=== PATIENT | male | born 1945 | race Caucasian/White ===

== ENCOUNTER 2016-09-27 00:25 | Inpatient (IN) | payer MEDICARE, BC ==
[2016-09-27] MEDS ORDERED: NITROGLYCERIN OINT 1 INCH/GM PACKET TOPICAL STA (00:40)
[2016-09-27] MEDS ORDERED: FUROSEMIDE 10 MG/ML 4 ML VIAL IV STA (00:40)
--- NOTE | 2016-09-27 00:44 | ED ---
General Adult HPI - General Stated complaint: LUBNA Time Seen by Provider: 09/27/16 00:30 Source: RN notes reviewed - History of Present Illness Initial comments: This is a 70-year-old male with a past history significant for atrial fibrillation. Patient states he been having difficulty breathing for the last 2 weeks. The patient states that over the last couple of hours difficulty breathing has gotten severe. According to the in the room she states that his swelling in his legs is also been significantly worse over the last few weeks. Patient denies any chest pain or palpitations. Patient denies any recent fever chills or cough. Patient denies headache patient denies numbness weakness. Patient denies any lightheadedness dizziness or near syncopal episode. Patient denies any recent abdominal pain patient denies nausea vomiting diarrhea. Patient denies any calf tenderness. - Related Data Home Medications Medication Instructions Recorded Confirmed Allopurinol [Zyloprim] 100 mg PO DAILY 12/10/15 09/27/16 Doxazosin [Cardura] 8 mg PO DAILY 12/10/15 09/27/16 Furosemide [Lasix] 40 mg PO DAILY 12/10/15 09/27/16 Metoprolol Succinate [Toprol XL] 50 mg PO BID 12/10/15 09/27/16 Potassium Chloride [Klor-Con 10] 10 meq PO DAILY 12/10/15 09/27/16 Pravastatin Sodium [Pravachol] 20 mg PO HS 12/10/15 09/27/16 Spironolactone [Aldactone] 25 mg PO DAILY 12/10/15 09/27/16 Warfarin [Coumadin] 5 mg PO TUTHSA 12/10/15 09/27/16 Benazepril [Lotensin] 20 mg PO DAILY 01/14/16 09/27/16 Colchicine [Colcrys] 0.6 mg PO BID 09/27/16 09/27/16 Warfarin [Coumadin] 7.5 mg PO SUMOWEFR 09/27/16 09/27/16 Allergies Allergy/AdvReac Type Severity Reaction Status Date / Time No Known Allergies Allergy Verified 09/27/16 00:49 Review of Systems ROS Statement: Those systems with pertinent positive or pertinent negative responses have been documented in the HPI. ROS Other: All systems not noted in ROS Statement are negative. Past Medical History Past Medical History: Atrial Fibrillation, Hyperlipidemia, Hypertension, Sleep Apnea/CPAP/BIPAP History of Any Multi-Drug Resistant Organisms: None Reported Past Surgical History: Cholecystectomy, Joint Replacement Past Anesthesia/Blood Transfusion Reactions: No Reported Reaction Smoking Status: Former smoker Past Alcohol Use History: Occasional Past Drug Use History: None Reported - Past Family History Father Family Medical History: No Reported History General Exam - General Exam Comments Initial Comments: GENERAL: Patient is well-developed and well-nourished. Patient is nontoxic and well- hydrated and is in moderate distress. ENT: Neck is soft and supple. No significant lymphadenopathy is noted. Oropharynx is clear. Moist mucous membranes. Neck has full range of motion without eliciting any pain. EYES: The sclera were anicteric and conjunctiva were pink and moist. Extraocular movements were intact and pupils were equal round and reactive to light. Eyelids were unremarkable. PULMONARY: Patient has crackles bilaterally CARDIOVASCULAR: There is a regular rate and rhythm without any murmurs gallops or rubs. ABDOMEN: Soft and nontender with normal bowel sounds. No palpable organomegaly was noted. There is no palpable pulsatile mass. SKIN: Skin is clear with no lesions or rashes and otherwise unremarkable. NEUROLOGIC: Patient is alert and oriented x3. Cranial nerves II through XII are grossly intact. Motor and sensory are also intact. Normal speech, volume and content. Symmetrical smile. MUSCULOSKELETAL: Normal extremities with adequate strength and full range of motion. 2+ edema bilaterally LYMPHATICS: No significant lymphadenopathy is noted PSYCHIATRIC: Normal psychiatric evaluation. Normal interpersonal interactions appears functionally intact in deals appropriately with others. No signs of depression. No signs of anxiety. Course Vital Signs 09/27/16 09/27/16 09/27/16 00:30 00:52 01:12 Temperature 98.1 F Pulse Rate 125 H 131 H 143 H Respiratory 38 H 22 22 Rate Blood Pressure 145/103 174/103 194/86 O2 Sat by Pulse 52 L 97 Oximetry 09/27/16 09/27/16 01:42 03:14 Temperature Pulse Rate 116 H 123 H Respiratory 22 20 Rate Blood Pressure 153/76 124/56 O2 Sat by Pulse 97 97 Oximetry Medical Decision Making - Medical Decision Making EKG shows atrial fibrillation with rapid ventricular response at 124 bpm QRS 102 QT interval 310 QTC is 445. Patient's EKG shows no ST segment elevation or depression or T-wave abdomen is noted. Chest x-ray showed congestive heart failure for which I started the patient on Nitropaste and Lasix. Also the chest x-ray showed no infiltrates up with the patient on Levaquin. Patient had atrial fibrillation at a rapid rate so I started the patient on some Cardizem. - Lab Data Result diagrams: 09/27/16 00:48 09/27/16 00:48 Lab Results 09/27/16 09/27/16 09/27/16 Range/Units 00:48 00:48 00:48 WBC 11.1 H (3.8-10.6) k/uL RBC 5.05 (4.30-5.90) m/uL Hgb 14.4 (13.0-17.5) gm/dL Hct 45.1 (39.0-53.0) % MCV 89.3 (80.0-100.0) fL MCH 28.4 (25.0-35.0) pg MCHC 31.8 (31.0-37.0) g/dL RDW 13.4 (11.5-15.5) % Plt Count 90 L (150-450) k/uL Neutrophils % 83 % Lymphocytes % 7 % Monocytes % 5 % Eosinophils % 1 % Basophils % 2 % Neutrophils # 9.2 H (1.3-7.7) k/uL Lymphocytes # 0.8 L (1.0-4.8) k/uL Monocytes # 0.6 (0-1.0) k/uL Eosinophils # 0.2 (0-0.7) k/uL Basophils # 0.2 (0-0.2) k/uL Manual Slide Review Performed Hypochromasia Slight PT (9.0-12.0) sec INR (<1.1) APTT (22.0-30.0) sec Sodium 144 (137-145) mmol/L Potassium 4.1 (3.5-5.1) mmol/L Chloride 107 (98-107) mmol/L Carbon Dioxide 24 (22-30) mmol/L Anion Gap 13 mmol/L BUN 18 (9-20) mg/dL Creatinine 1.10 (0.66-1.25) mg/dL Est GFR (MDRD) Af Amer >60 (>60 ml/min/1.73 sqM) Est GFR (MDRD) Non-Af >60 (>60 ml/min/1.73 sqM) Glucose 137 H (74-99) mg/dL Calcium 9.4 (8.4-10.2) mg/dL Magnesium 2.0 (1.6-2.3) mg/dL Total Bilirubin 0.8 (0.2-1.3) mg/dL AST 28 (17-59) U/L ALT 40 (21-72) U/L Alkaline Phosphatase 96 (38-126) U/L Total Creatine Kinase 77 (55-170) U/L CK-MB (CK-2) 1.6 (0.0-2.4) ng/mL CK-MB (CK-2) Rel Index 2.1 Troponin I <0.012 (0.000-0.034) ng/mL NT-Pro-B Natriuret Pep pg/mL Total Protein 7.6 (6.3-8.2) g/dL Albumin 4.6 (3.5-5.0) g/dL 09/27/16 09/27/16 Range/Units 00:48 00:48 WBC (3.8-10.6) k/uL RBC (4.30-5.90) m/uL Hgb (13.0-17.5) gm/dL Hct (39.0-53.0) % MCV (80.0-100.0) fL MCH (25.0-35.0) pg MCHC (31.0-37.0) g/dL RDW (11.5-15.5) % Plt Count (150-450) k/uL Neutrophils % % Lymphocytes % % Monocytes % % Eosinophils % % Basophils % % Neutrophils # (1.3-7.7) k/uL Lymphocytes # (1.0-4.8) k/uL Monocytes # (0-1.0) k/uL Eosinophils # (0-0.7) k/uL Basophils # (0-0.2) k/uL Manual Slide Review Hypochromasia PT 22.6 H (9.0-12.0) sec INR 2.3 (<1.1) APTT 28.7 (22.0-30.0) sec Sodium (137-145) mmol/L Potassium (3.5-5.1) mmol/L Chloride (98-107) mmol/L Carbon Dioxide (22-30) mmol/L Anion Gap mmol/L BUN (9-20) mg/dL Creatinine (0.66-1.25) mg/dL Est GFR (MDRD) Af Amer (>60 ml/min/1.73 sqM) Est GFR (MDRD) Non-Af (>60 ml/min/1.73 sqM) Glucose (74-99) mg/dL Calcium (8.4-10.2) mg/dL Magnesium (1.6-2.3) mg/dL Total Bilirubin (0.2-1.3) mg/dL AST (17-59) U/L ALT (21-72) U/L Alkaline Phosphatase (38-126) U/L Total Creatine Kinase (55-170) U/L CK-MB (CK-2) (0.0-2.4) ng/mL CK-MB (CK-2) Rel Index Troponin I (0.000-0.034) ng/mL NT-Pro-B Natriuret Pep 1640 pg/mL Total Protein (6.3-8.2) g/dL Albumin (3.5-5.0) g/dL Critical Care Time Critical Care Time: Yes Total Critical Care Time: 35 Disposition Clinical Impression: Acute pulmonary edema, Pneumonia, Atrial fibrillation with RVR Disposition: ADMITTED IP TO THIS [facility] Time of Disposition: 02:04
[2016-09-27] MEDS ORDERED: LORazepam 2 MG/ML SYRINGE IV STA ×2 (01:08→01:25)
[2016-09-27 01:09] LABS: Basophils # (A) 0.2 k/uL (0-0.2); Basophils % (A) 2 %; CH 28.1; CHCM 31.6; Eosinophils # (A) 0.2 k/uL (0-0.7); Eosinophils % (A) 1 %; HCT 45.1 % (39.0-53.0); HDW 2.69; HGB 14.4 gm/dL (13.0-17.5); Hypochromasia Slight; Luc # (Auto) 0.18; Luc % (Auto) 2; Lymphocytes # (A) 0.8 k/uL (1.0-4.8); Lymphocytes % (A) 7 %; MCH 28.4 pg (25.0-35.0); MCHC 31.8 g/dL (31.0-37.0); MCV 89.3 fL (80.0-100.0); Mean Platelet Volume 7.3; Monocytes # (A) 0.6 k/uL (0-1.0); Monocytes % (A) 5 %; Neutrophils # (A) 9.2 k/uL (1.3-7.7); Neutrophils % (A) 83 %; RBC 5.05 m/uL (4.30-5.90); RDW 13.4 % (11.5-15.5); WBC 11.1 k/uL (3.8-10.6); WBC (Perox) 11.54
[2016-09-27 01:14] LABS: INR 2.3 (<1.1); Partial Thromboplastin Time 28.7 sec (22.0-30.0); Prothrombin Time 22.6 sec (9.0-12.0)
[2016-09-27 01:18] LABS: ALT 40 U/L (21-72); AST 28 U/L (17-59); Alkaline Phosphatase 96 U/L (38-126); Anion Gap 13 mmol/L; Blood Urea Nitrogen 18 mg/dL (9-20); Calcium 9.4 mg/dL (8.4-10.2); Carbon Dioxide 24 mmol/L (22-30); Chloride 107 mmol/L (98-107); Glucose 137 mg/dL (74-99); Non-African American GFR(MDRD) >60 (>60 ml/min/1.73 sqM); Potassium 4.1 mmol/L (3.5-5.1); Sodium 144 mmol/L (137-145); Total Bilirubin 0.8 mg/dL (0.2-1.3); Total Protein 7.6 g/dL (6.3-8.2)
--- NOTE | 2016-09-27 01:22 | XR ---
EXAM: XR Chest, 1 View. CLINICAL HISTORY: Reason: Pain TECHNIQUE: Frontal view of the chest. COMPARISON: No relevant prior studies available. FINDINGS: Lungs: Heterogeneous patchy infiltrate in the right mid and lower lung field. There is a background of increased pulmonary vascular markings that would suggest a component of pulmonary vascular congestion. Pleural spaces: No large pleural effusion. No pneumothorax. Heart: There is cardiomegaly present. Mediastinum: Mild aortic arch calcification. Bones: Osseous structures intact with degenerative changes. Metallic density overlying the right humeral head is partially included, may be external or post surgical. No acute fracture. IMPRESSION: 1. Right lower lung field infiltrate. Recommend follow-up to resolution. 2. Underlying or superimposed pulmonary vascular congestion.
[2016-09-27] MEDS ORDERED: LABETALOL SYRINGE 5 MG/ML IVP STA (01:25)
[2016-09-27 01:27] LABS: Creatine Kinase 77 U/L (55-170)
[2016-09-27 01:35] LABS: Manual Review Performed
[2016-09-27 01:40] LABS: Creatine Kinase MB 1.6 ng/mL (0.0-2.4); Troponin I <0.012 ng/mL (0.000-0.034)
[2016-09-27] MEDS ORDERED: LEVOFLOXACIN 750MG-D5W PMX 750 MG in DEXTROSE/WATER 1 150ML.BAG IVPB STA (01:53)
[2016-09-27] MEDS ORDERED: DILTIAZEM 125 MG in SODIUM CHLORIDE 0.9% 100 ML IV ONE (02:06)
[2016-09-27] MEDS ORDERED: FUROSEMIDE 10 MG/ML 4 ML VIAL IV SCH (02:15)
[2016-09-27] MEDS ORDERED: METOPROLOL SUCCINATE (ER) 50 MG TAB.ER.24H PO SCH (10:15)
[2016-09-27] MEDS ORDERED: POTASSIUM CHLORIDE ER 10 MEQ TAB.ER.PRT PO SCH (10:15)
[2016-09-27] MEDS: NITROGLYCERIN OINT 1 INCH/GM PACKET TOPICAL SCH ×3 (10:54→17:17)
[2016-09-27] MEDS: SPIRONOLACTONE 25 MG TAB PO SCH (10:56)
[2016-09-27] MEDS: POTASSIUM CHLORIDE ER 20 MEQ TAB.ER PO SCH (10:56)
[2016-09-27] MEDS: FUROSEMIDE 10 MG/ML 4 ML VIAL IV SCH ×3 (10:57→23:56)
--- NOTE | 2016-09-27 11:36 | P.HPIM ---
History of Present Illness H&P Date: 09/27/16 64-year-old male patient of Dr. Grissom with known medical history of hypertension, hyperlipidemia and benign prostatic hypertrophy, chronic back pain , gout, osteoarthritis and borderline diabetes chronic atrial fibrillation. His career development consultant is Dr. Dominguez. Patient states that he has had shortness of breath for a couple weeks worsening with activity. He denies any chest pain with this. Last night he was coughing up mucus and blood which was a little foamy. By the time he coughed up a second episode of bloody He needed to have it checked. Prior to this he states that his sputum was a dark brown. Last night he could not catch his breath and he ended up coming into [facility] emergency center for worsening shortness of breath along with orthopnea. He denies any chest pain, palpitations. He did have some lightheadedness. No nausea or vomiting no leg pain. His initial pulse ox was 52% on room air with tachypnea of 38 and heart rate of 125. He was placed on Nitropaste but is not really sure if this helped at all. Chest x- ray showed a right lower lobe infiltrate and underlying pulmonary vascular congestion. He was started on his IV Lasix versus his usual oral dose along with IV antibiotics with Levaquin and admitted to the selective care unit. Consults were requested with pulmonary medicine and cardiology. Repeat troponins and echocardiogram ordered. Patient does have history of obstructive sleep apnea but was unable to tolerate CPAP. Review of Systems All systems: negative Constitutional: Denies chills, Denies fever Eyes: denies blurred vision, denies pain Ears, nose, mouth and throat: Denies headache, Denies sore throat Cardiovascular: Reports decreased exercise tolerance, Reports dyspnea on exertion, Reports leg edema, Reports lightheadedness, Reports orthopnea, Reports shortness of breath, Denies chest pain, Denies irregular heart beat, Denies palpitations, Denies rapid heart beat, Denies syncope Respiratory: Reports cough, Reports cough with sputum, Reports dyspnea, Reports hemoptysis, Reports sleep apnea Gastrointestinal: Denies abdominal pain, Denies diarrhea, Denies nausea, Denies vomiting Musculoskeletal: Denies myalgias Integumentary: Denies pruritus, Denies rash Neurological: Denies numbness, Denies weakness Psychiatric: Denies anxiety, Denies depression Endocrine: Denies fatigue, Denies weight change Past Medical History Past Medical History: Atrial Fibrillation, Hyperlipidemia, Hypertension, Sleep Apnea/CPAP/BIPAP Additional Past Medical History / Comment(s): Gout, benign prostatic hypertrophy , chronic low back pain, generalized osteoarthritis, obstructive sleep apnea and was unable to tolerate CPAP machine, borderline diabetes History of Any Multi-Drug Resistant Organisms: None Reported Past Surgical History: Cholecystectomy, Joint Replacement Additional Past Surgical History / Comment(s): Right total knee arthroplasty with Dr. Quan, ventral hernia repair Past Anesthesia/Blood Transfusion Reactions: No Reported Reaction Past Psychological History: No Psychological Hx Reported Smoking Status: Former smoker Past Alcohol Use History: Occasional Additional Past Alcohol Use History / Comment(s): She was a smoker of one pack per day for 10 years and quit 40 years ago. He denies any medical marijuana, marijuana or street drug use. He does drink alcohol 3-4 beers every day for 10- 15 years. He is and lives at home with his . Past Drug Use History: None Reported - Past Family History Father Family Medical History: No Reported History Additional Family Medical History / Comment(s): Dad at age 89 from stroke. Mother Additional Family Medical History / Comment(s): Mother is alive at age 90 with dementia. Sister(s) Additional Family Medical History / Comment(s): Patient has 2 sisters with no major medical problems. Patient does not have any brothers. Patient has 2 adult children with no major medical problems. Medications and Allergies Home Medications Medication Instructions Recorded Confirmed Type Allopurinol [Zyloprim] 100 mg PO HS 12/10/15 09/27/16 History Furosemide [Lasix] 40 mg PO DAILY 12/10/15 09/27/16 History Potassium Chloride [Klor-Con 10] 10 meq PO HS 12/10/15 09/27/16 History Pravastatin Sodium [Pravachol] 20 mg PO HS 12/10/15 09/27/16 History Spironolactone [Aldactone] 25 mg PO DAILY 12/10/15 09/27/16 History Warfarin [Coumadin] 5 mg PO MOWEFR 12/10/15 09/27/16 History Benazepril HCl [Lotensin] 20 mg PO DAILY 09/27/16 09/27/16 History Colchicine [Colcrys] 0.6 mg PO BID 09/27/16 09/27/16 History Doxazosin Mesylate [Cardura] 8 mg PO HS 09/27/16 09/27/16 History Metoprolol Tartrate [Lopressor] 50 mg PO BID 09/27/16 09/27/16 History Warfarin [Coumadin] 7.5 mg PO SUTUTHSA 09/27/16 09/27/16 History Allergies Allergy/AdvReac Type Severity Reaction Status Date / Time No Known Allergies Allergy Verified 09/27/16 10:16 Physical Exam Vitals: Vital Signs Temp Pulse Resp BP Pulse Ox 09/27/16 07:24 97.8 F 115 H 17 114/58 96 09/27/16 04:48 115 H 95 09/27/16 03:14 123 H 20 124/56 97 Intake and Output 09/26/16 09/27/16 09/27/16 22:59 06:59 14:59 Output Total 1999 Balance -1999 Output: Urine 1999 General appearance: cooperative, no acute distress, morbidly obese. negative: average body habitus, disheveled, mild distress, - EENT Eyes: Reports normal pupils, Reports normal apperance, Denies anicteric sclerae , Denies disc margins sharp, Denies edentulous, Denies EOMI, Denies PERRLA, Denies fundus normal, Denies dentition normal, Denies poor dentition, Denies ptosis, Denies scleral icterus ENT: Reports normal oropharynx, Denies hard of hearing, Denies hearing grossly normal, Denies NA/AT, Denies other, Denies pharyngeal erythema, Denies thrush, Denies tonsillar exudates, Denies tonsillar swelling Ears: bilateral: normal - Neck Neck: Reports normal ROM, Denies lymphadenopathy, Denies other, Denies rigidity , Denies stridor, Denies thyromegaly Carotids: bilateral: upstroke normal Thyroid: bilateral: normal size - Respiratory Respiratory: bilateral: diminished with crackles - Cardiovascular Rhythm: regular Heart sounds: normal: S1, S2 Abnormal Heart Sounds: Reports systolic murmur - Gastrointestinal General gastrointestinal: Reports normal bowel sounds, Reports soft, Denies decreased bowel sounds, Denies distended, Denies hepatomegaly, Denies hyperactive bowel sounds, Denies organomegaly, Denies rigid, Denies scaphoid, Denies splenomegaly, Denies tenderness, Denies umbilical hernia, Denies ventral hernia - Integumentary Integumentary: Reports normal, Reports pale, Reports rash, Denies calor, Denies cellulitis, Denies cyanotic, Denies decreased turgor, Denies flushed, Denies jaundiced, Denies normal turgor, Denies ulcer - Neurologic Neurologic: CNII-XII intact - Musculoskeletal Musculoskeletal: Reports gait normal, Reports generalized weakness, Reports strength equal bilaterally, Denies right sided weakness, Denies left sided weakness Results CBC & Chem 7: 09/27/16 00:48 09/27/16 00:48 Thrombosis Risk Factor Assmnt - DVT/VTE Prophylaxis DVT/VTE Prophylaxis: Pharmacologic Prophylaxis ordered Assessment and Plan Plan: 1. Acute hypoxic respiratory failure secondary to acute coronary syndrome, acute heart failure, possible right-sided pneumonia requiring BiPAP. Continue O2 to maintain a pulse ox equal to or greater than 92%. Consult with pulmonary medicine and cardiology. Repeat troponins and echocardiogram ordered. 2. Atrial fibrillation with rapid ventricular response with history of chronic atrial fibrillation. Patient was started on Cardizem drip. Metoprolol resumed. Patient is on chronic Coumadin which has been resumed. Continue to monitor INR. Cardiology and pulmonary medicine consult. 3. Hemoptysis with possible right infiltrate or pneumonia. Patient has been started on IV Levaquin. Consult with pulmonary medicine. 4. Hypertension. Continue benazepril 20 mg daily and Lopressor 50 mg twice daily, Aldactone 25 mg daily. 5. Acute on chronic heart failure. Echocardiogram ordered. Continue Lasix 40 mg IV push every 8 hours and Aldactone 25 mg daily. 6. Benign prostatic hypertrophy. Continue Cardura. 7. Hyperlipidemia. Continue Pravachol. 8. Gout unspecified. Continue colchicine and allopurinol. 9. Chronic low back pain and generalized osteoarthritis, stable. 10. Borderline diabetes. Humalog scale and A1c ordered. 11. DVT prophylaxis. Patient is on Coumadin. 12. Gastrointestinal prophylaxis. Protonix Patient will be admitted to the hospital for a minimum of 2 night stay. Discharge plan: To be determined. Impression and plan of care have been directed as dictated by the signing physician. Linda Maloney nurse practitioner acting as scribe for signing physician. Time with Patient: Greater than 30
[2016-09-27 13:44] LABS: Glucose,Whole Blood 99 mg/dL (75-99)
[2016-09-27] MEDS ORDERED: IPRATROPIUM-ALBUTEROL 3 ML NEB INHALATION PRN (14:17)
--- NOTE | 2016-09-27 14:19 | P.CNPUL ---
History of Present Illness Consult date: 09/27/16 Reason for consult: dyspnea, cough Chief complaint: cough and shortness of breath History of present illness: this is a 70-year-old male who presented emergency department complaining of shortness of breath and cough for the last 2-3 weeks. The patient states that over the past 2 weeks his breathing is Much worse. The patient states that he was coughing up brown phlegm for about 2 weeks. Last night he had an episode where he coughed up a drawing of bright red blood. He states he has not had any further bleeding since that one time. He denies fevers and chills at home. He denies chest pain. He states he has a history of obstructive sleep apnea diagnosed about 3 years ago. He wear his CPAP for about 4 months and could not tolerate having the mask on. He states he has not worn his CPAP since that time. He is a former smoker quit 35 years ago. He used to smoke 1 pack per day for 10 years. He states he has never been totally of COPD or asthma. Review of Systems All systems: negative Past Medical History Past Medical History: Atrial Fibrillation, Hyperlipidemia, Hypertension, Sleep Apnea/CPAP/BIPAP Additional Past Medical History / Comment(s): Gout, benign prostatic hypertrophy , chronic low back pain, generalized osteoarthritis, obstructive sleep apnea and was unable to tolerate CPAP machine, borderline diabetes History of Any Multi-Drug Resistant Organisms: None Reported Past Surgical History: Cholecystectomy, Joint Replacement Additional Past Surgical History / Comment(s): Right total knee arthroplasty with Dr. Quan, ventral hernia repair Past Anesthesia/Blood Transfusion Reactions: No Reported Reaction Past Psychological History: No Psychological Hx Reported Smoking Status: Former smoker Past Alcohol Use History: Occasional Additional Past Alcohol Use History / Comment(s): She was a smoker of one pack per day for 10 years and quit 40 years ago. He denies any medical marijuana, marijuana or street drug use. He does drink alcohol 3-4 beers every day for 10- 15 years. He is and lives at home with his . Past Drug Use History: None Reported - Past Family History Father Family Medical History: No Reported History Additional Family Medical History / Comment(s): Dad at age 89 from stroke. Mother Additional Family Medical History / Comment(s): Mother is alive at age 90 with dementia. Sister(s) Additional Family Medical History / Comment(s): Patient has 2 sisters with no major medical problems. Patient does not have any brothers. Patient has 2 adult children with no major medical problems. Medications and Allergies Home Medications Medication Instructions Recorded Confirmed Type Allopurinol [Zyloprim] 100 mg PO HS 12/10/15 09/27/16 History Furosemide [Lasix] 40 mg PO DAILY 12/10/15 09/27/16 History Potassium Chloride [Klor-Con 10] 10 meq PO HS 12/10/15 09/27/16 History Pravastatin Sodium [Pravachol] 20 mg PO HS 12/10/15 09/27/16 History Spironolactone [Aldactone] 25 mg PO DAILY 12/10/15 09/27/16 History Warfarin [Coumadin] 5 mg PO MOWEFR 12/10/15 09/27/16 History Benazepril HCl [Lotensin] 20 mg PO DAILY 09/27/16 09/27/16 History Colchicine [Colcrys] 0.6 mg PO BID 09/27/16 09/27/16 History Doxazosin Mesylate [Cardura] 8 mg PO HS 09/27/16 09/27/16 History Metoprolol Tartrate [Lopressor] 50 mg PO BID 09/27/16 09/27/16 History Warfarin [Coumadin] 7.5 mg PO SUTUTHSA 09/27/16 09/27/16 History Allergies Allergy/AdvReac Type Severity Reaction Status Date / Time No Known Allergies Allergy Verified 09/27/16 10:16 Physical Exam Osteopathic Statement: *. No significant issues noted on an osteopathic structural exam other than those noted in the History and Physical/Consult. Vitals: Vital Signs Temp Pulse Resp BP Pulse Ox 09/27/16 13:05 100 20 119/59 94 L 09/27/16 12:24 108 H 18 94 L 09/27/16 10:19 97.8 F 110 H 18 102/63 95 09/27/16 07:24 97.8 F 115 H 17 114/58 96 09/27/16 04:48 115 H 95 09/27/16 03:14 123 H 20 124/56 97 Intake and Output 09/26/16 09/27/16 09/27/16 22:59 06:59 14:59 Output Total 19990 Balance -1999 Output: Urine 2000 1150 Gen.: Patient is alert and oriented 3, no acute distress, morbidly obese Cardiovascular: Irregular rate and rhythm, S1/S2, tachycardic Lungs: Coarse breath sounds bilaterally sign abdomen: Soft nontender nondistended positive bowel sounds Extremities: 2+ pitting edema with chronic venous stasis Results - Laboratory Findings CBC and BMP: 09/27/16 00:48 09/27/16 00:48 PT/INR, D-dimer PT 22.6 sec (9.0-12.0) H 09/27/16 00:48 INR 2.3 (<1.1) 09/27/16 00:48 - Diagnostic Findings Chest x-ray: report reviewed, image reviewed Assessment and Plan Plan: acute hypoxic respiratory failure Acute exacerbation of congestive heart failure, unknown type pulmonary edema Hemoptysis without recurrence Possible pneumonia versus bronchitis Morbid obesity Obstructive sleep apnea, patient noncompliant with CPAP Possible early cor pulmonale Atrial fibrillation with rapid ventricular response Thrombocytopenia Coumadin coagulopathy Hypertension Dyslipidemia BPH Chronic back pain Gout Osteoarthritis Diabetes mellitus type 2 O2 to maintain saturation greater than equal to 88% Bronchodilators PRN Diuresis Monitor for recurrent hemoptysis Antibiotics: Levaquin Check echocardiogram Coumadin dosing for INR 2-3 Continue patient's home medications Rate control per cardiology No need to stop anticoagulation from pulmonary standpoint at this point. Patient has not had any recurrent hemoptysis. Sputum culture Repeat CXR in AM Patient is encouraged to wear his home CPAP however he refuses at this time. GI and DVT prophylaxis Incentive spirometry and pulmonary hygiene Thank you for this consultation we'll continue to follow along
[2016-09-27] MEDS: INSULIN LISPRO (humaLOG) 300 UNIT/3 ML VIAL SQ SCH ×4 (14:38→22:02)
--- NOTE | 2016-09-27 15:30 | P.CRDCN ---
History of Present Illness Consult date: 09/27/16 Reason for Consult (text): pulmonary edema Chief complaint: shortness of breath ,hemoptysis History of present illness: This is a 70-year-old gentleman who follows with Dr. Dominguez in the office has a past medical history of atrial fibrillation, hypertension, hyperlipidemia. Presented to the emergency department with complaints of difficulty in breathing as well as a cough over the last 2-3 weeks. Patient says he's been coughing up brown colored sputum for the last 2 weeks and yesterday had one episode of hemoptysis, bright red blood. He's also noticed he's had some increase in his lower extremity edema. Upon presentation patient was found to be in atrial fibrillation with RVR surgeon on Cardizem drip. He is on current Coumadin at home with an INR of 2.3. Labs showed a BNP of 1640 and troponin of less than 0.012 and 0.020. Chest x-ray showed right lower lobe infiltrate and pulmonary vascular congestion. Patient has been started on IV antibiotics as well as IV Lasix. Upon examination patient is feeling quite a bit better. Denies any further episodes of hemoptysis. He is breathing easier. Notices a decrease in his edema. Eyes any complaints of palpitations, chest discomfort, dizziness or syncope. Past Medical History Past Medical History: Atrial Fibrillation, Hyperlipidemia, Hypertension, Sleep Apnea/CPAP/BIPAP Additional Past Medical History / Comment(s): Gout, benign prostatic hypertrophy , chronic low back pain, generalized osteoarthritis, obstructive sleep apnea and was unable to tolerate CPAP machine, borderline diabetes History of Any Multi-Drug Resistant Organisms: None Reported Past Surgical History: Cholecystectomy, Joint Replacement Additional Past Surgical History / Comment(s): Right total knee arthroplasty with Dr. Quan, ventral hernia repair Past Anesthesia/Blood Transfusion Reactions: No Reported Reaction Past Psychological History: No Psychological Hx Reported Smoking Status: Former smoker Past Alcohol Use History: Occasional Additional Past Alcohol Use History / Comment(s): She was a smoker of one pack per day for 10 years and quit 40 years ago. He denies any medical marijuana, marijuana or street drug use. He does drink alcohol 3-4 beers every day for 10- 15 years. He is and lives at home with his . Past Drug Use History: None Reported - Past Family History Father Family Medical History: No Reported History Additional Family Medical History / Comment(s): Dad at age 89 from stroke. Mother Additional Family Medical History / Comment(s): Mother is alive at age 90 with dementia. Sister(s) Additional Family Medical History / Comment(s): Patient has 2 sisters with no major medical problems. Patient does not have any brothers. Patient has 2 adult children with no major medical problems. Medications and Allergies Home Medications Medication Instructions Recorded Confirmed Type Allopurinol [Zyloprim] 100 mg PO HS 12/10/15 09/27/16 History Furosemide [Lasix] 40 mg PO DAILY 12/10/15 09/27/16 History Potassium Chloride [Klor-Con 10] 10 meq PO HS 12/10/15 09/27/16 History Pravastatin Sodium [Pravachol] 20 mg PO HS 12/10/15 09/27/16 History Spironolactone [Aldactone] 25 mg PO DAILY 12/10/15 09/27/16 History Warfarin [Coumadin] 5 mg PO MOWEFR 12/10/15 09/27/16 History Benazepril HCl [Lotensin] 20 mg PO DAILY 09/27/16 09/27/16 History Colchicine [Colcrys] 0.6 mg PO BID 09/27/16 09/27/16 History Doxazosin Mesylate [Cardura] 8 mg PO HS 09/27/16 09/27/16 History Metoprolol Tartrate [Lopressor] 50 mg PO BID 09/27/16 09/27/16 History Warfarin [Coumadin] 7.5 mg PO SUTUTHSA 09/27/16 09/27/16 History Allergies Allergy/AdvReac Type Severity Reaction Status Date / Time No Known Allergies Allergy Verified 09/27/16 10:16 Physical Exam Vitals: Vital Signs Temp Pulse Pulse Resp BP BP Pulse Ox 09/27/16 14:00 97.8 F 115 H 20 126/62 94 L 09/27/16 13:05 100 20 119/59 94 L 09/27/16 12:24 108 H 18 94 L 09/27/16 10:19 97.8 F 110 H 18 102/63 95 09/27/16 07:24 97.8 F 115 H 17 114/58 96 09/27/16 04:48 115 H 95 09/27/16 04:23 97.8 F 115 H 20 126/62 94 L 09/27/16 03:14 123 H 20 124/56 97 Intake and Output 09/27/16 09/27/16 09/27/16 06:59 14:59 22:59 Output Total 19990 Balance -1999 Output: Urine 19990 Other: Voiding Method Urinal # Bowel Movements 1 Weight 175 kg PHYSICAL EXAMINATION: HEENT: Head is atraumatic, normocephalic. Pupils equal, round. Neck is supple. There is no elevated jugular venous pressure. HEART EXAMINATION: Heart sounds irregular irregular, S1 and S2 normal. No murmur or gallop heard. CHEST EXAMINATION: Lungs reveal faint crackles to bilateral bases. No chest wall tenderness is noted on palpation or with deep breathing. ABDOMEN: Soft, nontender. Bowel sounds are heard. No organomegaly noted. EXTREMITIES: 2+ peripheral pulses with evidence of 2+ peripheral edema and no calf tenderness noted. NEUROLOGIC patient is awake, alert and oriented x3. . Results 09/27/16 00:48 09/27/16 00:48 Cardiac Enzymes 09/27/16 Range/Units 10:40 Troponin I 0.020 (0.000-0.034) ng/mL Current Medications Generic Name Dose Route Start Last Admin Trade Name Freq PRN Reason Stop Dose Admin Albuterol/Ipratropium 3 ml 09/27/16 14:17 Duoneb 0.5 Mg-3 Mg/3 Ml Soln INHALATION RT-QID PRN Shortness Of Breath Or Wheezing Allopurinol 100 mg 09/28/16 09:00 Zyloprim PO DAILY [facility] Colchicine 0.6 mg 09/27/16 21:00 Colcrys PO BID [facility] Doxazosin Mesylate 8 mg 09/28/16 09:00 Cardura PO DAILY [facility] Furosemide 40 mg 09/27/16 08:00 09/27/16 10:57 Lasix IV 40 mg Q8H [facility] Administration Levofloxacin 750 mg/ IV 150 mls @ 100 mls/hr 09/28/16 06:00 Solution IVPB Q24H [facility] Insulin Human Lispro 0 unit 09/27/16 12:30 09/27/16 14:38 Humalog SQ Not Given ACHS [facility] Protocol Lisinopril 20 mg 09/28/16 09:00 Zestril PO DAILY [facility] Metoprolol Tartrate 50 mg 09/27/16 21:00 Lopressor PO BID [facility] Nitroglycerin 1 inch 09/27/16 09:00 09/27/16 14:38 Nitro-Bid Oint TOPICAL Not Given QID [facility] Potassium Chloride 20 meq 09/27/16 09:00 09/27/16 10:56 K-Dur 20 PO 20 meq DAILY [facility] Administration Pravastatin Sodium 20 mg 09/27/16 21:00 Pravachol PO HS [facility] Spironolactone 25 mg 09/27/16 10:15 09/27/16 10:56 Aldactone PO 25 mg DAILY [facility] Administration Warfarin Sodium 5 mg 09/27/16 18:00 Coumadin PO [id number]@1800 [facility] Warfarin Sodium 7.5 mg 09/28/16 18:00 Coumadin PO [id number]@1800 [facility] Intake and Output 09/27/16 09/27/16 09/27/16 06:59 14:59 22:59 Output Total 1999 1150 Balance -1999 Output: Urine 1999 1149 Other: Voiding Method Urinal # Bowel Movements 1 Weight 175 kg Assessment and Plan Plan: Assessment and Plan #1 acute congestive heart failure, awaiting echo results. #2 acute hypoxic respiratory failure secondary to pulmonary edema and possible pneumonia versus bronchitis #3 morbid obesity #4 hemoptysis without recurrence #5 atrial fibrillation with rapid ventricular response, chronic, on Coumadin #6 hypertension #7 obstructive sleep apnea, noncompliant with CPAP From cardiology's perspective, we'll obtain a 2-D echo. We will stop IV Cardizem and resume patient's home dose of metoprolol tartrate 50 mg by mouth twice a day. Continue IV Lasix. We'll follow patient's renal function, daily weights and intake and output. Further recommendations to follow. AGRONOMY PROFESSOR note has been reviewed, I agree with a documented findings and plan of care. Patient was seen and examined.
[2016-09-27 16:55] LABS: Glucose,Whole Blood 118 mg/dL (75-99)
[2016-09-27] MEDS ORDERED: WARFARIN 5 MG TAB PO SCH (18:00)
[2016-09-27 20:40] LABS: Glucose,Whole Blood 148 mg/dL (75-99)
[2016-09-27] MEDS: COLCHICINE 0.6 MG TAB PO SCH (21:50)
[2016-09-27] MEDS: PRAVASTATIN SODIUM 20 MG TAB PO SCH (21:51)
[2016-09-27] MEDS: METOPROLOL TARTRATE 50 MG TAB PO SCH (21:51)
[2016-09-28 05:47] LABS: Glucose,Whole Blood 112 mg/dL (75-99)
[2016-09-28] MEDS: LEVOFLOXACIN 750MG-D5W PMX 750 MG in DEXTROSE/WATER 1 150ML.BAG IVPB SCH (06:13)
[2016-09-28] MEDS: NITROGLYCERIN OINT 1 INCH/GM PACKET TOPICAL SCH ×3 (06:13→16:02)
--- NOTE | 2016-09-28 07:46 | XR ---
EXAMINATION TYPE: XR chest 1V portable DATE OF EXAM: 09/28/2016 7:13 AM COMPARISON: 09/27/2016 HISTORY: Shortness of breath TECHNIQUE: Single frontal view of the chest is obtained. FINDINGS: The heart remains enlarged and there is marked improvement perihilar lower lobe areas of i nfiltrate. No pneumothorax. Underlying COPD suspected. Atherosclerotic change aorta. IMPRESSION: 1. Improving perihilar areas of infiltrate or pulmonary edema correlate clinically.
[2016-09-28] MEDS: INSULIN LISPRO (humaLOG) 300 UNIT/3 ML VIAL SQ SCH ×3 (07:57→17:04)
[2016-09-28] MEDS: LISINOPRIL 20 MG TAB PO SCH (08:06)
[2016-09-28] MEDS: FUROSEMIDE 10 MG/ML 4 ML VIAL IV SCH ×2 (08:06→16:55)
[2016-09-28] MEDS: POTASSIUM CHLORIDE ER 20 MEQ TAB.ER PO SCH (08:06)
[2016-09-28] MEDS: ALLOPURINOL 100 MG TAB PO SCH (08:06)
[2016-09-28] MEDS: SPIRONOLACTONE 25 MG TAB PO SCH (08:07)
[2016-09-28] MEDS: COLCHICINE 0.6 MG TAB PO SCH ×2 (08:07→22:04)
[2016-09-28] MEDS: DOXAZOSIN 4 MG TAB PO SCH (08:07)
[2016-09-28] MEDS: METOPROLOL TARTRATE 50 MG TAB PO SCH ×2 (08:08→22:04)
[2016-09-28 09:29] LABS: INR 1.9 (<1.1); Prothrombin Time 18.3 sec (9.0-12.0)
--- NOTE | 2016-09-28 10:23 | P.PN ---
Subjective 64-year-old male patient of Dr. Grissom with known medical history of hypertension, hyperlipidemia and benign prostatic hypertrophy, chronic back pain , gout, osteoarthritis and borderline diabetes chronic atrial fibrillation. His director surface transportation is Dr. Dominguez. Patient states that he has had shortness of breath for a couple weeks worsening with activity. He denies any chest pain with this. Last night he was coughing up mucus and blood which was a little foamy. By the time he coughed up a second episode of bloody He needed to have it checked. Prior to this he states that his sputum was a dark brown. Last night he could not catch his breath and he ended up coming into [facility] emergency center for worsening shortness of breath along with orthopnea. He denies any chest pain, palpitations. He did have some lightheadedness. No nausea or vomiting no leg pain. His initial pulse ox was 52% on room air with tachypnea of 38 and heart rate of 125. He was placed on Nitropaste but is not really sure if this helped at all. Chest x- ray showed a right lower lobe infiltrate and underlying pulmonary vascular congestion. He was started on his IV Lasix versus his usual oral dose along with IV antibiotics with Levaquin and admitted to the selective care unit. Consults were requested with pulmonary medicine and cardiology. Repeat troponins and echocardiogram ordered. Patient does have history of obstructive sleep apnea but was unable to tolerate CPAP. 09/28: Patient has been seen by pulmonary medicine and cardiology. Cardizem drip was discontinued. Patient continues on IV Lasix. Weight is down 4 kg. blood cultures showing no growth and sputum culture is in process. Echocardiogram has been completed and report is pending. Dr. Grissom discussed with cardiology that he would like heart catheterization performed. Objective - Vital Signs Vital signs: Vital Signs Temp 97.0 F L 09/28/16 08:00 Pulse 101 H 09/28/16 08:00 Resp 18 09/28/16 08:00 BP 115/70 09/28/16 08:00 Pulse Ox 93 L 09/28/16 08:00 Intake & Output 09/27/16 09/28/16 09/28/16 17:59 06:59 18:59 Intake Total Output Total Balance Weight Intake: IV Diltiazem 125 mg In Sodium Chloride 0.9% 100 ml @ 5 MG/HR 5 mls/hr IV .Q24H ONE Rx#:[id number] saline Output: Urine Other: Voiding Method # Bowel Movements - Exam General appearance: cooperative, no acute distress, morbidly obese. negative: average body habitus, disheveled, mild distress, - EENT Eyes: Reports normal pupils, Reports normal apperance, Denies anicteric sclerae , Denies disc margins sharp, Denies edentulous, Denies EOMI, Denies PERRLA, Denies fundus normal, Denies dentition normal, Denies poor dentition, Denies ptosis, Denies scleral icterus ENT: Reports normal oropharynx, Denies hard of hearing, Denies hearing grossly normal, Denies NA/AT, Denies other, Denies pharyngeal erythema, Denies thrush, Denies tonsillar exudates, Denies tonsillar swelling Ears: bilateral: normal - Neck Neck: Reports normal ROM, Denies lymphadenopathy, Denies other, Denies rigidity , Denies stridor, Denies thyromegaly Carotids: bilateral: upstroke normal Thyroid: bilateral: normal size - Respiratory Respiratory: bilateral: diminished with crackles - Cardiovascular Rhythm: regular Heart sounds: normal: S1, S2 Abnormal Heart Sounds: Reports systolic murmur - Gastrointestinal General gastrointestinal: Reports normal bowel sounds, Reports soft, Denies decreased bowel sounds, Denies distended, Denies hepatomegaly, Denies hyperactive bowel sounds, Denies organomegaly, Denies rigid, Denies scaphoid, Denies splenomegaly, Denies tenderness, Denies umbilical hernia, Denies ventral hernia - Integumentary Integumentary: Reports normal, Reports pale, Reports rash, Denies calor, Denies cellulitis, Denies cyanotic, Denies decreased turgor, Denies flushed, Denies jaundiced, Denies normal turgor, Denies ulcer - Neurologic Neurologic: CNII-XII intact - Musculoskeletal Musculoskeletal: Reports gait normal, Reports generalized weakness, Reports strength equal bilaterally, Denies right sided weakness, Denies left sided weakness - Labs CBC & Chem 7: 09/27/16 00:48 09/27/16 00:48 Labs: Abnormal Lab Results - Last 24 Hours (Table) 09/27/16 09/27/16 09/28/16 Range/Units 16:45 20:38 05:46 POC Glucose (mg/dL) 118 H 148 H 112 H (75-99) mg/dL Microbiology - Last 24 Hours (Table) 09/27/16 18:45 Gram Stain - Preliminary Sputum Assessment and Plan Plan: 1. Acute hypoxic respiratory failure secondary to acute coronary syndrome, acute heart failure, possible right-sided pneumonia requiring BiPAP. Continue O2 to maintain a pulse ox equal to or greater than 92%. Consult with pulmonary medicine and cardiology. Repeat troponins and echocardiogram ordered. 2. Atrial fibrillation with rapid ventricular response with history of chronic atrial fibrillation. Patient was started on Cardizem drip and subsequently discontinued. Metoprolol resumed. Patient is on chronic Coumadin which has been resumed. Continue to monitor INR. Cardiology and pulmonary medicine consult. 3. Hemoptysis with possible right infiltrate or pneumonia. Patient has been started on IV Levaquin. Consult with pulmonary medicine. 4. Hypertension. Continue benazepril 20 mg daily and Lopressor 50 mg twice daily, Aldactone 25 mg daily. 5. Acute on chronic heart failure. Echocardiogram ordered. Continue Lasix 40 mg IV push every 8 hours and Aldactone 25 mg daily. 6. Benign prostatic hypertrophy. Continue Cardura. 7. Hyperlipidemia. Continue Pravachol. 8. Gout unspecified. Continue colchicine and allopurinol. 9. Chronic low back pain and generalized osteoarthritis, stable. 10. Borderline diabetes. Humalog scale and A1c ordered. 11. DVT prophylaxis. Patient is on Coumadin. 12. Gastrointestinal prophylaxis. Protonix Patient will be admitted to the hospital for a minimum of 2 night stay. Discharge plan: To be determined. Impression and plan of care have been directed as dictated by the signing physician. Linda Maloney nurse practitioner acting as scribe for signing physician. Time with Patient: Greater than 30
[2016-09-28 10:41] LABS: Hemoglobin A1C 5.7 % (4.2-6.1)
[2016-09-28 11:53] LABS: Glucose,Whole Blood 101 mg/dL (75-99)
--- NOTE | 2016-09-28 14:24 | P.PN ---
Subjective Principal diagnosis: acute exacerbation of CHF patient seen and examined. Patient states his breathing is much better today. He has not had any more hemoptysis. He states he is feeling better overall. He has been urinating quite frequently. Objective - Vital Signs Vital signs: Vital Signs Temp 96.9 F L 09/28/16 11:37 Pulse 90 09/28/16 11:37 Resp 20 09/28/16 11:37 BP 108/69 09/28/16 11:37 Pulse Ox 95 09/28/16 11:37 Intake & Output 09/27/16 09/28/16 09/28/16 17:59 06:59 18:59 Intake Total 120 Output Total 400 Balance -280 Weight 171 kg Intake: IV Diltiazem 125 mg In Sodium Chloride 0.9% 100 ml @ 5 MG/HR 5 mls/hr IV .Q24H [facility] Rx#:[id number] saline Oral 120 Output: Urine 400 Other: Voiding Method Urinal # Voids 1 # Bowel Movements - Exam Gen.: Patient is alert and oriented 3, no acute distress, morbidly obese Cardiovascular: Irregular rate and rhythm, S1/S2, tachycardic Lungs: Coarse breath sounds bilaterally, improving abdomen: Soft nontender nondistended positive bowel sounds Extremities: 2+ pitting edema with chronic venous stasis - Labs CBC & Chem 7: 09/27/16 00:48 09/27/16 00:48 Labs: Abnormal Lab Results - Last 24 Hours (Table) 09/27/16 09/27/16 09/28/16 Range/Units 16:45 20:38 05:46 PT (9.0-12.0) sec POC Glucose (mg/dL) 118 H 148 H 112 H (75-99) mg/dL 09/28/16 09/28/16 Range/Units 09:03 11:49 PT 18.3 H (9.0-12.0) sec POC Glucose (mg/dL) 101 H (75-99) mg/dL Microbiology - Last 24 Hours (Table) 09/27/16 18:45 Gram Stain - Preliminary Sputum Assessment and Plan Plan: acute hypoxic respiratory failure Acute exacerbation of congestive heart failure, unknown type pulmonary edema Hemoptysis without recurrence tracheobronchitis - doubt pneumonia as chest x-ray has improved markedly with diuresis Morbid obesity Obstructive sleep apnea, patient noncompliant with CPAP Possible early cor pulmonale Atrial fibrillation with rapid ventricular response Thrombocytopenia Coumadin coagulopathy Hypertension Dyslipidemia BPH Chronic back pain Gout Osteoarthritis Diabetes mellitus type 2 O2 to maintain saturation greater than equal to 88% Bronchodilators PRN Diuresis Monitor for recurrent hemoptysis Antibiotics: Levaquin pending echocardiogram Patient on Revatio per cardiology Coumadin dosing for INR 2-3 Continue patient's home medications Rate control per cardiology No need to stop anticoagulation from pulmonary standpoint at this point. Patient has not had any recurrent hemoptysis. Sputum culture repeat chest x-ray shows marked improvement in bilateral pulmonary vascular congestion. Doubt pneumonia given hasty improvement with diuresis. Patient is encouraged to wear his home CPAP however he refuses at this time. GI and DVT prophylaxis Incentive spirometry and pulmonary hygiene Check AM labs
[2016-09-28] MEDS: SILDENAFIL 20 MG TAB PO SCH ×2 (16:55→22:05)
[2016-09-28 17:07] LABS: Glucose,Whole Blood 93 mg/dL (75-99)
[2016-09-28] MEDS ORDERED: WARFARIN 7.5 MG TAB PO ONE (18:00)
[2016-09-28] MEDS ORDERED: WARFARIN 7.5 MG TAB PO SCH (18:00)
[2016-09-28 21:23] LABS: Glucose,Whole Blood 98 mg/dL (75-99)
[2016-09-28] MEDS: PRAVASTATIN SODIUM 20 MG TAB PO SCH (22:05)
[2016-09-29] MEDS: FUROSEMIDE 10 MG/ML 4 ML VIAL IV SCH ×4 (00:15→21:26)
[2016-09-29] MEDS: LEVOFLOXACIN 750MG-D5W PMX 750 MG in DEXTROSE/WATER 1 150ML.BAG IVPB SCH (06:15)
[2016-09-29] MEDS: INSULIN LISPRO (humaLOG) 300 UNIT/3 ML VIAL SQ SCH ×5 (06:19→21:21)
[2016-09-29 06:26] LABS: Glucose,Whole Blood 163 mg/dL (75-99)
[2016-09-29 06:36] LABS: Anion Gap 12 mmol/L; Blood Urea Nitrogen 23 mg/dL (9-20); Calcium 9.4 mg/dL (8.4-10.2); Carbon Dioxide 32 mmol/L (22-30); Chloride 99 mmol/L (98-107); Glucose 119 mg/dL (74-99); Non-African American GFR(MDRD) 53 (>60 ml/min/1.73 sqM); Sodium 143 mmol/L (137-145)
[2016-09-29 06:37] LABS: Basophils # (A) 0.1 k/uL (0-0.2); Basophils % (A) 1 %; CH 28.3; CHCM 32.1; Eosinophils # (A) 0.2 k/uL (0-0.7); Eosinophils % (A) 2 %; HCT 41.2 % (39.0-53.0); HDW 2.63; HGB 13.1 gm/dL (13.0-17.5); Luc % (Auto) 3; Lymphocytes # (A) 1.2 k/uL (1.0-4.8); Lymphocytes % (A) 10 %; MCH 28.2 pg (25.0-35.0); MCHC 31.8 g/dL (31.0-37.0); MCV 88.5 fL (80.0-100.0); Mean Platelet Volume 7.3; Monocytes # (A) 0.9 k/uL (0-1.0); Monocytes % (A) 8 %; Neutrophils # (A) 8.9 k/uL (1.3-7.7); Neutrophils % (A) 78 %; RBC 4.65 m/uL (4.30-5.90); RDW 13.5 % (11.5-15.5); WBC 11.5 k/uL (3.8-10.6); WBC (Perox) 11.54
[2016-09-29 06:38] LABS: INR 1.6 (<1.1); Prothrombin Time 15.1 sec (9.0-12.0)
[2016-09-29] MEDS: COLCHICINE 0.6 MG TAB PO SCH ×2 (09:17→21:26)
[2016-09-29] MEDS: ALLOPURINOL 100 MG TAB PO SCH (09:17)
[2016-09-29] MEDS: DOXAZOSIN 4 MG TAB PO SCH (09:18)
[2016-09-29] MEDS: LISINOPRIL 20 MG TAB PO SCH (09:19)
[2016-09-29] MEDS: POTASSIUM CHLORIDE ER 20 MEQ TAB.ER PO SCH (09:20)
[2016-09-29] MEDS: METOPROLOL TARTRATE 50 MG TAB PO SCH ×2 (09:20→21:25)
[2016-09-29] MEDS: SILDENAFIL 20 MG TAB PO SCH ×3 (09:20→21:25)
[2016-09-29] MEDS: SPIRONOLACTONE 25 MG TAB PO SCH (09:21)
--- NOTE | 2016-09-29 09:43 | PN ---
This patient is admitted with symptoms of shortness of breath. Patient is being treated for acute exacerbation of chronic obstructive pulmonary disease and acute on chronic diastolic heart failure. Patient also was found to be in atrial fibrillation with RVR and a rapid ventricular response. Patient is doing better. His breathing has improved. Patient denies any chest pain. Patient's heart rate now remains in the range of 80 to 90 per minute. The blood pressure is 130/80 mmHg. HEART: S1 and S2 normal. Lungs reveal bilateral scattered rhonchi. Chest x-ray shows changes of congestive cardiac failure. FINAL IMPRESSION: This patient is currently being treated for acute on chronic diastolic heart failure and possible pneumonia and bronchitis. Patient's hemoptysis is subsided. Patient's echocardiogram reveals overall normal left ventricular systolic function with a significant pulmonary hypertension in the range of 70 to 82 systolic. I would recommend to continue the current medical treatment. I will add Sudanophil, Revatio 20 mg t.i.d. which might help his pulmonary hypertension. We would recommend patient to be evaluated later on with a dura stress test or cardiac catheterization after patient has improved from his current heart failure and acute bronchitis.
--- NOTE | 2016-09-29 11:58 | ECHOF ---
Referral Reason:lvfunction MEASUREMENTS -------- HEIGHT: 152.4 cm WEIGHT: 172.4 kg BP: RVIDd: 4.8 cm (< 3.3) IVSd: 1.5 cm (0.6 - 1.1) LVIDd: 4.3 cm (3.9 - 5.3) LVPWd: 1.6 cm (0.6 - 1.1) IVSs: 1.6 cm LVIDs: 3.1 cm LVPWs: 1.6 cm LA Diam: 5.4 cm (2.7 - 3.8) LAESV Index (A-L): 50.75 ml/m Ao Diam: 4.3 cm (2.0 - 3.7) AV Cusp: 2.5 cm (1.5 - 2.6) LA Diam: 5.7 cm (2.7 - 3.8) MV EXCURSION: 21.258 mm (> 18.000) MV EF SLOPE: 104 mm/s (70 - 150) EPSS: 0.3 cm MV E Denys: 0.62 m/s MV DecT: 163 ms MV A Denys: 0.45 m/s MV E/A Ratio: 1.36 RAP: 20.00 mmHg RVSP: 79.95 mmHg FINDINGS -------- Undetermined rhythm. This was a technically adequate study. Morbid Obesity There is mild concentric left ventricular hypertrophy. Overall left ventricular systolic function is low-normal with, an EF between 50 - 55 %. The right ventricle is severely enlarged. The right ventricular septal wall is flattened in diastole and systole which is consistent with right ventricular volume and pressure overload. LA is severely dilated >40 ml/m2 The right atrium is moderately enlarged. There is mild aortic valve sclerosis. There is no evidence of aortic regurgitation. Mild mitral annular calcification present. Mild mitral regurgitation is present. Moderate tricuspid regurgitation present. There is severe pulmonary hypertension. The right ventricular systolic pressure, as measured by Doppler, is 79.95mmHg. The pulmonic valve was not well visualized. The aortic root size is normal. The inferior vena cava is dilated with no significant inspiratory collapse which is consistent estimated right atrial pressure of >20 mmHg. There is no pericardial effusion. CONCLUSIONS -------- 1. Morbid Obesity 2. Mild mitral regurgitation is present. 3. Moderate tricuspid regurgitation present. 4. There is severe pulmonary hypertension. 5. The right ventricular systolic pressure, as measured by Doppler, is 79.95mmHg. 6. The pulmonic valve was not well visualized. 7. The aortic root size is normal. 8. The inferior vena cava is dilated with no significant inspiratory collapse which is consistent estimated right atrial pressure of >20 mmHg. 9. There is no pericardial effusion. 10. There is mild concentric left ventricular hypertrophy. 11. Overall left ventricular systolic function is low-normal with, an EF between 50 - 55 %. 12. The right ventricle is severely enlarged. 13. The right ventricular septal wall is flattened in diastole and systole which is consistent with right ventricular volume and pressure overload. 14. LA is severely dilated >40 ml/m2 15. The right atrium is moderately enlarged. 16. There is mild aortic valve sclerosis. 17. Mild mitral annular calcification present. TIRE WORKER: Cheryl Mathew RDCS
[2016-09-29 11:59] LABS: Glucose,Whole Blood 137 mg/dL (75-99)
--- NOTE | 2016-09-29 12:37 | P.PN ---
Subjective 64-year-old male patient of Dr. Grissom with known medical history of hypertension, hyperlipidemia and benign prostatic hypertrophy, chronic back pain , gout, osteoarthritis and borderline diabetes chronic atrial fibrillation. His remnants cutter is Dr. Dominguez. Patient states that he has had shortness of breath for a couple weeks worsening with activity. He denies any chest pain with this. Last night he was coughing up mucus and blood which was a little foamy. By the time he coughed up a second episode of bloody He needed to have it checked. Prior to this he states that his sputum was a dark brown. Last night he could not catch his breath and he ended up coming into [facility] emergency center for worsening shortness of breath along with orthopnea. He denies any chest pain, palpitations. He did have some lightheadedness. No nausea or vomiting no leg pain. His initial pulse ox was 52% on room air with tachypnea of 38 and heart rate of 125. He was placed on Nitropaste but is not really sure if this helped at all. Chest x- ray showed a right lower lobe infiltrate and underlying pulmonary vascular congestion. He was started on his IV Lasix versus his usual oral dose along with IV antibiotics with Levaquin and admitted to the selective care unit. Consults were requested with pulmonary medicine and cardiology. Repeat troponins and echocardiogram ordered. Patient does have history of obstructive sleep apnea but was unable to tolerate CPAP. 09/28: Patient has been seen by pulmonary medicine and cardiology. Cardizem drip was discontinued. Patient continues on IV Lasix. Weight is down 4 kg. blood cultures showing no growth and sputum culture is in process. Echocardiogram has been completed and report is pending. Dr. Grissom discussed with cardiology that he would like heart catheterization performed. Coumadin placed on hold. 09/29: Repeat BUN 23 and creatinine 1.34. INR 1.6. Patient is continued on IV Lasix 40 mg IV every 8 hours which will be decreased to every 12 hours. Weight is down almost 9 kg. cardiology plans outpatient testing with Dr. Dominguez.Coumadin 7.5 mg ordered for tonight. Objective - Vital Signs Vital signs: Vital Signs Temp 96.8 F L 09/29/16 04:00 Pulse 96 09/29/16 04:00 Resp 20 09/29/16 04:00 BP 103/75 09/29/16 04:00 Pulse Ox 94 L 09/29/16 08:27 Intake & Output 09/28/16 09/29/16 09/29/16 18:59 06:59 18:59 Intake Total 240 180 Output Total 1950 675 Balance -1710 -675 180 Weight 171 kg 166.4 kg Intake: Oral 240 180 Output: Urine 1949 675 Other: Voiding Method Urinal Urinal # Voids 1 1 - Exam General appearance: cooperative, no acute distress, morbidly obese. negative: average body habitus, disheveled, mild distress, - EENT Eyes: Reports normal pupils, Reports normal apperance, Denies anicteric sclerae , Denies disc margins sharp, Denies edentulous, Denies EOMI, Denies PERRLA, Denies fundus normal, Denies dentition normal, Denies poor dentition, Denies ptosis, Denies scleral icterus ENT: Reports normal oropharynx, Denies hard of hearing, Denies hearing grossly normal, Denies NA/AT, Denies other, Denies pharyngeal erythema, Denies thrush, Denies tonsillar exudates, Denies tonsillar swelling Ears: bilateral: normal - Neck Neck: Reports normal ROM, Denies lymphadenopathy, Denies other, Denies rigidity , Denies stridor, Denies thyromegaly Carotids: bilateral: upstroke normal Thyroid: bilateral: normal size - Respiratory Respiratory: bilateral: diminished with crackles - Cardiovascular Rhythm: regular Heart sounds: normal: S1, S2 Abnormal Heart Sounds: Reports systolic murmur - Gastrointestinal General gastrointestinal: Reports normal bowel sounds, Reports soft, Denies decreased bowel sounds, Denies distended, Denies hepatomegaly, Denies hyperactive bowel sounds, Denies organomegaly, Denies rigid, Denies scaphoid, Denies splenomegaly, Denies tenderness, Denies umbilical hernia, Denies ventral hernia - Integumentary Integumentary: Reports normal, Reports pale, Reports rash, Denies calor, Denies cellulitis, Denies cyanotic, Denies decreased turgor, Denies flushed, Denies jaundiced, Denies normal turgor, Denies ulcer - Neurologic Neurologic: CNII-XII intact - Musculoskeletal Musculoskeletal: Reports gait normal, Reports generalized weakness, Reports strength equal bilaterally, Denies right sided weakness, Denies left sided weakness - Labs CBC & Chem 7: 09/29/16 05:50 09/29/16 05:50 Labs: Abnormal Lab Results - Last 24 Hours (Table) 09/28/16 09/28/16 09/29/16 Range/Units 09:03 11:49 05:50 WBC 11.5 H (3.8-10.6) k/uL Plt Count 115 L (150-450) k/uL Neutrophils # 8.9 H (1.3-7.7) k/uL PT 18.3 H (9.0-12.0) sec Carbon Dioxide (22-30) mmol/L BUN (9-20) mg/dL Creatinine (0.66-1.25) mg/dL Glucose (74-99) mg/dL POC Glucose (mg/dL) 101 H (75-99) mg/dL 09/29/16 09/29/16 09/29/16 Range/Units 05:50 05:50 06:24 WBC (3.8-10.6) k/uL Plt Count (150-450) k/uL Neutrophils # (1.3-7.7) k/uL PT 15.1 H (9.0-12.0) sec Carbon Dioxide 32 H (22-30) mmol/L BUN 23 H (9-20) mg/dL Creatinine 1.34 H (0.66-1.25) mg/dL Glucose 119 H (74-99) mg/dL POC Glucose (mg/dL) 163 H (75-99) mg/dL Microbiology - Last 24 Hours (Table) 09/27/16 18:45 Gram Stain - Preliminary Sputum Assessment and Plan Plan: 1. Acute hypoxic respiratory failure secondary to acute coronary syndrome, acute heart failure, possible right-sided pneumonia requiring BiPAP. Continue O2 to maintain a pulse ox equal to or greater than 92%. Consult with pulmonary medicine and cardiology. 2. Atrial fibrillation with rapid ventricular response with history of chronic atrial fibrillation. Patient was started on Cardizem drip and subsequently discontinued. Metoprolol resumed. Patient is on chronic Coumadin which has been resumed. Continue to monitor INR. Cardiology and pulmonary medicine consult. 3. Hemoptysis with possible right infiltrate or pneumonia. Patient has been started on po Levaquin. Consult with pulmonary medicine. 4. Hypertension. Continue benazepril 20 mg daily and Lopressor 50 mg twice daily, Aldactone 25 mg daily. 5. Acute on chronic heart failure. Echocardiogram ordered. Continue Lasix 40 mg IV push every 12 hours and Aldactone 25 mg daily. 6. Benign prostatic hypertrophy. Continue Cardura. 7. Hyperlipidemia. Continue Pravachol. 8. Gout unspecified. Continue colchicine and allopurinol. 9. Chronic low back pain and generalized osteoarthritis, stable. 10. Borderline diabetes. Humalog scale and A1c ordered. 11. DVT prophylaxis. Patient is on Coumadin. 12. Gastrointestinal prophylaxis. Protonix Patient will be admitted to the hospital for a minimum of 2 night stay. Discharge plan: return home. Impression and plan of care have been directed as dictated by the signing physician. Linda Maloney nurse practitioner acting as scribe for signing physician. Time with Patient: Greater than 30
--- NOTE | 2016-09-29 13:05 | P.PN ---
Subjective Principal diagnosis: AECHF Patient seen and examined with the and son at bedside. Patient states his breathing is much better. He is hopeful to go home soon. Lung discussion was had regarding the patient's severe pulmonary hypertension and uncontrolled sleep apnea. The patient was diagnosed with sleep apnea about 6 years ago and he used CPAP for 4 months. He states he was unable to tolerate the CPAP at night so he stopped using it. [place] [facility] [place] The sequelae of uncontrolled sleep apnea as discussed with the patient at length. He is agreeable to try the CPAP again and try to tolerate it. Objective - Vital Signs Vital signs: Vital Signs Temp 96.8 F L 09/29/16 04:00 Pulse 96 09/29/16 04:00 Resp 20 09/29/16 04:00 BP 103/75 09/29/16 04:00 Pulse Ox 94 L 09/29/16 08:27 Intake & Output 09/28/16 09/29/16 09/29/16 18:59 06:59 18:59 Intake Total 240 180 Output Total 1950 675 Balance -1710 -675 180 Weight 171 kg 166.4 kg Intake: Oral 240 180 Output: Urine 1950 675 Other: Voiding Method Urinal Urinal # Voids 1 1 - Exam Gen.: Patient is alert and oriented 3, no acute distress, morbidly obese Cardiovascular: Irregular rate and rhythm, S1/S2, tachycardic Lungs: Coarse breath sounds bilaterally, improving abdomen: Soft nontender nondistended positive bowel sounds Extremities: 2+ pitting edema with chronic venous stasis - Labs CBC & Chem 7: 09/29/16 05:50 09/29/16 05:50 Labs: Abnormal Lab Results - Last 24 Hours (Table) 09/29/16 09/29/16 09/29/16 Range/Units 05:50 05:50 05:50 WBC 11.5 H (3.8-10.6) k/uL Plt Count 115 L (150-450) k/uL Neutrophils # 8.9 H (1.3-7.7) k/uL PT 15.1 H (9.0-12.0) sec Carbon Dioxide 32 H (22-30) mmol/L BUN 23 H (9-20) mg/dL Creatinine 1.34 H (0.66-1.25) mg/dL Glucose 119 H (74-99) mg/dL POC Glucose (mg/dL) (75-99) mg/dL 09/29/16 09/29/16 Range/Units 06:24 11:53 WBC (3.8-10.6) k/uL Plt Count (150-450) k/uL Neutrophils # (1.3-7.7) k/uL PT (9.0-12.0) sec Carbon Dioxide (22-30) mmol/L BUN (9-20) mg/dL Creatinine (0.66-1.25) mg/dL Glucose (74-99) mg/dL POC Glucose (mg/dL) 163 H 137 H (75-99) mg/dL Microbiology - Last 24 Hours (Table) 09/27/16 18:45 Gram Stain - Final Sputum Sputum Culture - Final Assessment and Plan Plan: Acute hypoxic respiratory failure Acute exacerbation of congestive heart failure, diastolic pulmonary edema Severe pulmonary hpyertension with RVSP 80 mmHg Hemoptysis without recurrence tracheobronchitis - doubt pneumonia as chest x-ray has improved markedly with diuresis Morbid obesity Obstructive sleep apnea, patient noncompliant with CPAP Atrial fibrillation with rapid ventricular response Thrombocytopenia Coumadin coagulopathy Hypertension Dyslipidemia BPH Chronic back pain Gout Osteoarthritis Diabetes mellitus type 2 O2 to maintain saturation greater than equal to 88% Bronchodilators PRN Diuresis Antibiotics: Levaquin Patient on Revatio per cardiology Coumadin dosing for INR 2-3 Continue patient's home medications Rate control per cardiology No need to stop anticoagulation from pulmonary standpoint at this point. Patient has not had any recurrent hemoptysis. Sputum culture repeat chest x-ray shows marked improvement in bilateral pulmonary vascular congestion. Doubt pneumonia given hasty improvement with diuresis. Patient is encouraged to wear his home CPAP however he refuses at this time. GI and DVT prophylaxis Incentive spirometry and pulmonary hygiene Check AM labs Start PH work up with labs, will try to get patient's CPAP reordered, will need outpatient PFT, weight loss is discussed. Patient agreeable to try CPAP again. Will need to follow up in pulmonary office with Dr. Ahumada for PH. Patient will need RHC, can be done on outpatient basis
[2016-09-29 14:58] LABS: ALT 36 U/L (21-72); AST 34 U/L (17-59); Alkaline Phosphatase 72 U/L (38-126); Bilirubin, Delta 0.6 mg/dL (0.0-0.2); Total Bilirubin 1.9 mg/dL (0.2-1.3); Total Protein 6.8 g/dL (6.3-8.2)
[2016-09-29 15:01] LABS: Rheumatoid Factor, Qnt 9 IU/mL (<12)
[2016-09-29 15:28] LABS: Hepatitis B Surface Ag Index 0.07
[2016-09-29 15:34] LABS: Hepatitis B Core IgM Index 0.04
[2016-09-29 15:45] LABS: Hepatitis C Virus IgG Index 0.02
[2016-09-29 15:49] LABS: Hepatitis C Virus IgG Ab Negative (Negative)
--- NOTE | 2016-09-29 16:04 | NM ---
EXAMINATION TYPE: NM pul vent and perfuse DATE OF EXAM: 09/29/2016 3:57 PM COMPARISON: NONE HISTORY: Shortness of breath TECHNIQUE: Utilizing inhalation of 71.2 mCi Tc 99m DTPA aerosol and intravenous injection of 5.2 mCi of Tc 99m MAA, ventilation and perfusion images are acquired post injection in multiple projections. FINDINGS: Normal radiotracer distribution is noted in the lungs. There is no evidence of mismatched defects. IMPRESSION: Very low probability for pulmonary embolism.
[2016-09-29 17:10] LABS: Glucose,Whole Blood 97 mg/dL (75-99)
[2016-09-29] MEDS ORDERED: WARFARIN 7.5 MG TAB PO ONE (18:00)
[2016-09-29 21:15] LABS: Glucose,Whole Blood 97 mg/dL (75-99)
[2016-09-29] MEDS: PRAVASTATIN SODIUM 20 MG TAB PO SCH (21:25)
--- NOTE | 2016-09-29 22:19 | PN ---
This patient is feeling better. The breathing is improved. Patient is afebrile. Patient was started on Revatio yesterday because of significant pulmonary hypertension. Patient's echocardiogram is suggestive of diastolic dysfunction as well as significant enlargement of the right ventricular chamber size. Patient is going to have a VQ lung scan done. Patient's chest x-ray done yesterday shows improvement in the heart failure. We will continue the current medications. Patient's heart rate is under control.
[2016-09-30 05:38] LABS: Cyclic Citrullinated Pep IgG 3 UNITS (<20)
[2016-09-30 06:23] LABS: CH 28.3; CHCM 32.4; HCT 42.5 % (39.0-53.0); HDW 2.69; HGB 13.9 gm/dL (13.0-17.5); MCH 28.7 pg (25.0-35.0); MCHC 32.6 g/dL (31.0-37.0); Mean Platelet Volume 7.4; RBC 4.83 m/uL (4.30-5.90); RDW 13.4 % (11.5-15.5); WBC 9.8 k/uL (3.8-10.6)
[2016-09-30 06:27] LABS: INR 1.5 (<1.1); Prothrombin Time 14.7 sec (9.0-12.0)
[2016-09-30 06:28] LABS: Glucose,Whole Blood 123 mg/dL (75-99)
[2016-09-30 06:42] LABS: Anion Gap 15 mmol/L; Blood Urea Nitrogen 30 mg/dL (9-20); Calcium 9.3 mg/dL (8.4-10.2); Carbon Dioxide 27 mmol/L (22-30); Chloride 100 mmol/L (98-107); Glucose 120 mg/dL (74-99); Non-African American GFR(MDRD) 55 (>60 ml/min/1.73 sqM); Sodium 142 mmol/L (137-145)
[2016-09-30] MEDS: INSULIN LISPRO (humaLOG) 300 UNIT/3 ML VIAL SQ SCH ×4 (06:44→20:45)
[2016-09-30] MEDS: LEVOFLOXACIN 750 MG TAB PO SCH (06:46)
[2016-09-30 07:18] LABS: HIV-1/HIV-2 Ab Screen NONREAC (NON REAC)
[2016-09-30] MEDS: ALLOPURINOL 100 MG TAB PO SCH (08:47)
[2016-09-30] MEDS: SILDENAFIL 20 MG TAB PO SCH ×3 (08:47→20:45)
[2016-09-30] MEDS: FUROSEMIDE 10 MG/ML 4 ML VIAL IV SCH (08:48)
[2016-09-30] MEDS: POTASSIUM CHLORIDE ER 20 MEQ TAB.ER PO SCH (08:48)
[2016-09-30] MEDS: METOPROLOL TARTRATE 50 MG TAB PO SCH ×2 (08:49→20:45)
[2016-09-30] MEDS: COLCHICINE 0.6 MG TAB PO SCH ×2 (08:49→20:45)
[2016-09-30] MEDS: SPIRONOLACTONE 25 MG TAB PO SCH (08:50)
[2016-09-30] MEDS: DOXAZOSIN 4 MG TAB PO SCH (08:50)
[2016-09-30 10:34] VITALS: BMI 50.6
[2016-09-30 11:10] LABS: Scleroderma 70 Antibody 2 UNITS (<20)
[2016-09-30 11:55] LABS: Glucose,Whole Blood 97 mg/dL (75-99)
[2016-09-30 12:31] LABS: C-ANCA <1:20 Titer (<1:20); P-ANCA <1:20 Titer (<1:20)
--- NOTE | 2016-09-30 14:17 | P.PN ---
Subjective Principal diagnosis: Acute exacerbation of CHF Patient seen and examined with his at bedside. The patient states his breathing is markedly better. He is hopeful for discharge soon. He states he will follow up for CPAP and will use the CPAP. Objective - Vital Signs Vital signs: Vital Signs Temp 97.5 F L 09/30/16 12:00 Pulse 106 H 09/30/16 12:00 Resp 18 09/30/16 12:00 BP 90/56 09/30/16 12:00 Pulse Ox 95 09/30/16 12:00 Intake & Output 09/29/16 09/30/16 09/30/16 18:59 06:59 18:59 Intake Total 600 600 120 Output Total 1250 1450 375 Balance -650 -850 -255 Weight 164.8 kg 164.8 kg Intake: Oral 600 600 120 Output: Urine 1250 1450 375 Other: Voiding Method Urinal Urinal # Voids 1 1 - Exam Gen.: Patient is alert and oriented 3, no acute distress, morbidly obese Cardiovascular: Irregular rate and rhythm, S1/S2, tachycardic Lungs: Clear to auscultation bilaterally, no wheezes rales or rhonchi abdomen: Soft nontender nondistended positive bowel sounds Extremities: 2+ pitting edema with chronic venous stasis - Labs CBC & Chem 7: 09/30/16 05:29 09/30/16 05:29 Labs: Abnormal Lab Results - Last 24 Hours (Table) 09/29/16 09/30/16 09/30/16 Range/Units 05:50 05:29 05:29 Plt Count 127 L (150-450) k/uL PT (9.0-12.0) sec BUN 30 H (9-20) mg/dL Creatinine 1.30 H (0.66-1.25) mg/dL Glucose 120 H (74-99) mg/dL POC Glucose (mg/dL) (75-99) mg/dL Total Bilirubin 1.9 H (0.2-1.3) mg/dL Unconjugated Bilirubin 1.3 H (0.0-1.1) mg/dL Delta Bilirubin 0.6 H (0.0-0.2) mg/dL 09/30/16 09/30/16 Range/Units 05:29 06:21 Plt Count (150-450) k/uL PT 14.7 H (9.0-12.0) sec BUN (9-20) mg/dL Creatinine (0.66-1.25) mg/dL Glucose (74-99) mg/dL POC Glucose (mg/dL) 123 H (75-99) mg/dL Total Bilirubin (0.2-1.3) mg/dL Unconjugated Bilirubin (0.0-1.1) mg/dL Delta Bilirubin (0.0-0.2) mg/dL Microbiology - Last 24 Hours (Table) 09/27/16 18:45 Gram Stain - Final Sputum Sputum Culture - Final Assessment and Plan Plan: Acute hypoxic respiratory failure Acute exacerbation of congestive heart failure, diastolic pulmonary edema Severe pulmonary hpyertension with RVSP 80 mmHg Hemoptysis without recurrence tracheobronchitis - doubt pneumonia as chest x-ray has improved markedly with diuresis Morbid obesity Obstructive sleep apnea, patient noncompliant with CPAP, mild AHI 12.6 Atrial fibrillation with rapid ventricular response Thrombocytopenia Coumadin coagulopathy Hypertension Dyslipidemia BPH Chronic back pain Gout Osteoarthritis Diabetes mellitus type 2 O2 to maintain saturation greater than equal to 88% Bronchodilators PRN Diuresis Antibiotics: Levaquin Patient on Revatio per cardiology Coumadin dosing for INR 2-3 Continue patient's home medications Rate control per cardiology No need to stop anticoagulation from pulmonary standpoint at this point. Patient has not had any recurrent hemoptysis. Sputum culture repeat chest x-ray shows marked improvement in bilateral pulmonary vascular congestion. Doubt pneumonia given hasty improvement with diuresis. GI and DVT prophylaxis Incentive spirometry and pulmonary hygiene Start PH work up with labs, will try to get patient's CPAP reordered, will need outpatient PFT, weight loss is discussed. Patient agreeable to try CPAP again. Will need to follow up in pulmonary office with Dr. Ahumada for PH. Patient will need RHC, can be done on outpatient basis.
--- NOTE | 2016-09-30 14:24 | P.PN ---
Subjective 64-year-old male patient of Dr. Grissom with known medical history of hypertension, hyperlipidemia and benign prostatic hypertrophy, chronic back pain , gout, osteoarthritis and borderline diabetes chronic atrial fibrillation. His produce sorter is Dr. Dominguez. Patient states that he has had shortness of breath for a couple weeks worsening with activity. He denies any chest pain with this. Last night he was coughing up mucus and blood which was a little foamy. By the time he coughed up a second episode of bloody He needed to have it checked. Prior to this he states that his sputum was a dark brown. Last night he could not catch his breath and he ended up coming into [facility] emergency center for worsening shortness of breath along with orthopnea. He denies any chest pain, palpitations. He did have some lightheadedness. No nausea or vomiting no leg pain. His initial pulse ox was 52% on room air with tachypnea of 38 and heart rate of 125. He was placed on Nitropaste but is not really sure if this helped at all. Chest x- ray showed a right lower lobe infiltrate and underlying pulmonary vascular congestion. He was started on his IV Lasix versus his usual oral dose along with IV antibiotics with Levaquin and admitted to the selective care unit. Consults were requested with pulmonary medicine and cardiology. Repeat troponins and echocardiogram ordered. Patient does have history of obstructive sleep apnea but was unable to tolerate CPAP. 09/28: Patient has been seen by pulmonary medicine and cardiology. Cardizem drip was discontinued. Patient continues on IV Lasix. Weight is down 4 kg. blood cultures showing no growth and sputum culture is in process. Echocardiogram has been completed and report is pending. Dr. Grissom discussed with cardiology that he would like heart catheterization performed. Coumadin placed on hold. 09/29: Repeat BUN 23 and creatinine 1.34. INR 1.6. Patient is continued on IV Lasix 40 mg IV every 8 hours which will be decreased to every 12 hours. Weight is down almost 9 kg. cardiology plans outpatient testing with Dr. Dominguez.Coumadin 7.5 mg ordered for tonight. 09/30: Patient underwent VQ scan which was negative. He was started on Revatio yesterday by cardiology. Lasix will be changed to oral 40 mg twice daily. Monitor patient overnight and plan for discharge tomorrow. Objective - Vital Signs Vital signs: Vital Signs Temp 97.6 F 09/30/16 04:00 Pulse 108 H 09/30/16 04:00 Resp 16 09/30/16 04:00 BP 124/84 09/30/16 04:00 Pulse Ox 94 L 09/30/16 04:00 Intake & Output 09/29/16 09/30/16 09/30/16 18:59 06:59 18:59 Intake Total 600 600 120 Output Total 1250 1450 375 Balance -650 -850 -255 Weight 164.8 kg 164.8 kg Intake: Oral 600 600 120 Output: Urine 1250 1450 375 Other: Voiding Method Urinal Urinal # Voids 1 1 - Exam General appearance: cooperative, no acute distress, morbidly obese. negative: average body habitus, disheveled, mild distress, - EENT Eyes: Reports normal pupils, Reports normal apperance, Denies anicteric sclerae , Denies disc margins sharp, Denies edentulous, Denies EOMI, Denies PERRLA, Denies fundus normal, Denies dentition normal, Denies poor dentition, Denies ptosis, Denies scleral icterus ENT: Reports normal oropharynx, Denies hard of hearing, Denies hearing grossly normal, Denies NA/AT, Denies other, Denies pharyngeal erythema, Denies thrush, Denies tonsillar exudates, Denies tonsillar swelling Ears: bilateral: normal - Neck Neck: Reports normal ROM, Denies lymphadenopathy, Denies other, Denies rigidity , Denies stridor, Denies thyromegaly Carotids: bilateral: upstroke normal Thyroid: bilateral: normal size - Respiratory Respiratory: bilateral: diminished with crackles - Cardiovascular Rhythm: regular Heart sounds: normal: S1, S2 Abnormal Heart Sounds: Reports systolic murmur - Gastrointestinal General gastrointestinal: Reports normal bowel sounds, Reports soft, Denies decreased bowel sounds, Denies distended, Denies hepatomegaly, Denies hyperactive bowel sounds, Denies organomegaly, Denies rigid, Denies scaphoid, Denies splenomegaly, Denies tenderness, Denies umbilical hernia, Denies ventral hernia - Integumentary Integumentary: Reports normal, Reports pale, Reports rash, Denies calor, Denies cellulitis, Denies cyanotic, Denies decreased turgor, Denies flushed, Denies jaundiced, Denies normal turgor, Denies ulcer - Neurologic Neurologic: CNII-XII intact - Musculoskeletal Musculoskeletal: Reports gait normal, Reports generalized weakness, Reports strength equal bilaterally, Denies right sided weakness, Denies left sided weakness - Labs CBC & Chem 7: 09/30/16 05:29 09/30/16 05:29 Labs: Abnormal Lab Results - Last 24 Hours (Table) 09/29/16 09/29/16 09/30/16 Range/Units 05:50 11:53 05:29 Plt Count 127 L (150-450) k/uL PT (9.0-12.0) sec BUN (9-20) mg/dL Creatinine (0.66-1.25) mg/dL Glucose (74-99) mg/dL POC Glucose (mg/dL) 137 H (75-99) mg/dL Total Bilirubin 1.9 H (0.2-1.3) mg/dL Unconjugated Bilirubin 1.3 H (0.0-1.1) mg/dL Delta Bilirubin 0.6 H (0.0-0.2) mg/dL 09/30/16 09/30/16 09/30/16 Range/Units 05:29 05:29 06:21 Plt Count (150-450) k/uL PT 14.7 H (9.0-12.0) sec BUN 30 H (9-20) mg/dL Creatinine 1.30 H (0.66-1.25) mg/dL Glucose 120 H (74-99) mg/dL POC Glucose (mg/dL) 123 H (75-99) mg/dL Total Bilirubin (0.2-1.3) mg/dL Unconjugated Bilirubin (0.0-1.1) mg/dL Delta Bilirubin (0.0-0.2) mg/dL Microbiology - Last 24 Hours (Table) 09/27/16 18:45 Gram Stain - Final Sputum Sputum Culture - Final Assessment and Plan Plan: 1. Acute hypoxic respiratory failure secondary to acute coronary syndrome, acute heart failure, possible right-sided pneumonia requiring BiPAP. Continue O2 to maintain a pulse ox equal to or greater than 92%. Consult with pulmonary medicine and cardiology. 2. Atrial fibrillation with rapid ventricular response with history of chronic atrial fibrillation. Patient was started on Cardizem drip and subsequently discontinued. Metoprolol resumed. Patient is on chronic Coumadin which has been resumed. Continue to monitor INR. Cardiology and pulmonary medicine consult. 3. Hemoptysis with possible right infiltrate or pneumonia. Patient has been started on po Levaquin. Consult with pulmonary medicine. 4. Hypertension. Continue benazepril 20 mg daily and Lopressor 50 mg twice daily, Aldactone 25 mg daily. 5. Acute on chronic heart failure. Echocardiogram as above. Continue Lasix 40 mg PO every 12 hours and Aldactone 25 mg daily. 6. Benign prostatic hypertrophy. Continue Cardura. 7. Hyperlipidemia. Continue Pravachol. 8. Gout unspecified. Continue colchicine and allopurinol. 9. Chronic low back pain and generalized osteoarthritis, stable. 10. Borderline diabetes. Humalog scale and A1c ordered. 11. DVT prophylaxis. Patient is on Coumadin. 12. Gastrointestinal prophylaxis. Protonix Patient will be admitted to the hospital for a minimum of 2 night stay. Discharge plan: return home tomorrow. Impression and plan of care have been directed as dictated by the signing physician. Linda Maloney nurse practitioner acting as scribe for signing physician. Time with Patient: Greater than 30
[2016-09-30] MEDS: LISINOPRIL 20 MG TAB PO SCH (16:01)
[2016-09-30 16:49] LABS: Glucose,Whole Blood 90 mg/dL (75-99)
[2016-09-30] MEDS: FUROSEMIDE 40 MG TAB PO SCH (16:53)
[2016-09-30] MEDS ORDERED: WARFARIN 7.5 MG TAB PO ONE (18:00)
--- NOTE | 2016-09-30 20:43 | PN ---
This patient was admitted with shortness of breath. Patient had evidence of acute on chronic diastolic heart failure as well as right-sided heart failure and atrial fibrillation with a rapid ventricular response. Patient is feeling much better. Heart rate now is 90 to 100 per minute. Blood pressure is 90/56 mmHg. First and second heart sounds are normal. Lungs are fairly clear to auscultation and percussion. He is feeling better. Lung scan did not show any evidence of pulmonary embolism. Electrolytes are normal. Patient's creatinine is 1.30. We will continue to ambulate the patient, continue the current medications. Patient also will be followed by ( ) for evaluation of his pulmonary hypertension. I will decrease the dose of the lisinopril to 10 mg daily because the patient's blood pressure is running slightly on the lower side.
[2016-09-30] MEDS: PRAVASTATIN SODIUM 20 MG TAB PO SCH (20:45)
[2016-09-30 20:46] LABS: Glucose,Whole Blood 117 mg/dL (75-99)
[2016-10-01 05:57] LABS: Glucose,Whole Blood 110 mg/dL (75-99)
[2016-10-01] MEDS: INSULIN LISPRO (humaLOG) 300 UNIT/3 ML VIAL SQ SCH ×2 (06:21→11:54)
[2016-10-01 06:25] LABS: INR 1.8 (<1.1); Prothrombin Time 17.1 sec (9.0-12.0)
[2016-10-01 06:28] LABS: Anion Gap 12 mmol/L; Blood Urea Nitrogen 28 mg/dL (9-20); Calcium 9.4 mg/dL (8.4-10.2); Carbon Dioxide 30 mmol/L (22-30); Chloride 102 mmol/L (98-107); Glucose 122 mg/dL (74-99); Non-African American GFR(MDRD) 55 (>60 ml/min/1.73 sqM); Potassium 4.1 mmol/L (3.5-5.1); Sodium 144 mmol/L (137-145)
[2016-10-01] MEDS: LEVOFLOXACIN 750 MG TAB PO SCH (06:38)
[2016-10-01] MEDS ORDERED: LISINOPRIL 10 MG TAB PO SCH (09:00)
[2016-10-01] MEDS ORDERED: FUROSEMIDE 10 MG TAB PO SCH (09:00)
[2016-10-01] MEDS: SILDENAFIL 20 MG TAB PO SCH (09:32)
[2016-10-01] MEDS: METOPROLOL TARTRATE 50 MG TAB PO SCH (09:33)
[2016-10-01] MEDS: DOXAZOSIN 4 MG TAB PO SCH (09:42)
[2016-10-01] MEDS: ALLOPURINOL 100 MG TAB PO SCH (09:42)
[2016-10-01] MEDS: COLCHICINE 0.6 MG TAB PO SCH (09:42)
[2016-10-01] MEDS: POTASSIUM CHLORIDE ER 20 MEQ TAB.ER PO SCH (09:43)
[2016-10-01] MEDS: FUROSEMIDE 40 MG TAB PO SCH (09:43)
[2016-10-01] MEDS: SPIRONOLACTONE 25 MG TAB PO SCH (09:44)
[2016-10-01] MEDS ORDERED: METOPROLOL TARTRATE 50 MG TAB PO SCH ×2 (10:30→21:00)
[2016-10-01] MEDS ORDERED: METOPROLOL TARTRATE 25 MG TAB PO ONE (10:45)
[2016-10-01 11:53] LABS: Glucose,Whole Blood 103 mg/dL (75-99)
--- NOTE | 2016-10-01 15:51 | P.DS ---
Providers Date of admission: 09/27/16 02:04 Expected date of discharge: 10/01/16 Attending physician: Gianluca Grissom Consults: 09/27/16 11:20 Consult Physician Routine Consulting Provider: Joyce Wilson Consult Reason/Comments: Hemoptysis, heart failure Do you want consulting provider notified?: Yes Primary care physician: [facility] Course: 64-year-old male patient of Dr. Grissom with known medical history of hypertension, hyperlipidemia and benign prostatic hypertrophy, chronic back pain , gout, osteoarthritis and borderline diabetes chronic atrial fibrillation. His meat trimmer is Dr. Dominguez. Patient states that he has had shortness of breath for a couple weeks worsening with activity. He denies any chest pain with this. Last night he was coughing up mucus and blood which was a little foamy. By the time he coughed up a second episode of bloody He needed to have it checked. Prior to this he states that his sputum was a dark brown. Last night he could not catch his breath and he ended up coming into [facility] emergency center for worsening shortness of breath along with orthopnea. He denies any chest pain, palpitations. He did have some lightheadedness. No nausea or vomiting no leg pain. His initial pulse ox was 52% on room air with tachypnea of 38 and heart rate of 125. He was placed on Nitropaste but is not really sure if this helped at all. Chest x- ray showed a right lower lobe infiltrate and underlying pulmonary vascular congestion. He was started on his IV Lasix versus his usual oral dose along with IV antibiotics with Levaquin and admitted to the selective care unit. Consults were requested with pulmonary medicine and cardiology. Repeat troponins and echocardiogram ordered. Patient does have history of obstructive sleep apnea but was unable to tolerate CPAP. 09/28: Patient has been seen by pulmonary medicine and cardiology. Cardizem drip was discontinued. Patient continues on IV Lasix. Weight is down 4 kg. blood cultures showing no growth and sputum culture is in process. Echocardiogram has been completed and report is pending. Dr. Grissom discussed with cardiology that he would like heart catheterization performed. Coumadin placed on hold. 09/29: Repeat BUN 23 and creatinine 1.34. INR 1.6. Patient is continued on IV Lasix 40 mg IV every 8 hours which will be decreased to every 12 hours. Weight is down almost 9 kg. cardiology plans outpatient testing with Dr. Dominguez.Coumadin 7.5 mg ordered for tonight. 09/30: Patient underwent VQ scan which was negative. He was started on Revatio yesterday by cardiology. Lasix will be changed to oral 40 mg twice daily. Monitor patient overnight and plan for discharge tomorrow. 10/01:patient's heart rate went up to 160 and he was started on increased dose of Lopressor at 75 milligrams twice daily. Patient walked again in the hallway and his heart rate did go up to 120 but no higher. Patient was asymptomatic. Patient will be discharged home today in stable condition. Echocardiogram reveals mild mitral regurgitation, moderate tricuspid regurgitation, severe pulmonary hypertension, EF 50-55% with mild concentric left ventricle hypertrophy, L a severely dilated, mild aortic valve sclerosis. Hemoglobin A1c 5.7. Discharge Diagnoses: 1. Acute hypoxic respiratory failure secondary to acute coronary syndrome, acute diastolic heart failure, possible right-sided pneumonia requiring BiPAP. 2. Atrial fibrillation with rapid ventricular response with history of chronic atrial fibrillation. 3. Hemoptysis with possible right infiltrate or pneumonia. 4. Hypertension. 5. Acute on chronic diastolic heart failure. 6. Benign prostatic hypertrophy. 7. Hyperlipidemia. 8. Gout unspecified. 9. Chronic low back pain and generalized osteoarthritis, stable. 10. Hyperglycemia. Discharge plan: return home Impression and plan of care have been directed as dictated by the signing physician. Linda Maloney nurse practitioner acting as scribe for signing physician. Patient Condition at Discharge: Good Plan - Discharge Summary New Discharge Prescriptions: Furosemide [Lasix] 40 mg PO BID@0900,1600 #60 tab Levofloxacin [Levaquin] 750 mg PO Q24H #5 tab Metoprolol Tartrate [Lopressor] 75 mg PO BID #90 tab Sildenafil [Revatio] 20 mg PO TID #90 tab Discharge Medication List Allopurinol [Zyloprim] 100 mg PO HS 12/10/15 [History] Potassium Chloride [Klor-Con 10] 10 meq PO HS 12/10/15 [History] Pravastatin Sodium [Pravachol] 20 mg PO HS 12/10/15 [History] Spironolactone [Aldactone] 25 mg PO DAILY 12/10/15 [History] Benazepril HCl [Lotensin] 20 mg PO DAILY 09/27/16 [History] Colchicine [Colcrys] 0.6 mg PO BID 09/27/16 [History] Doxazosin Mesylate [Cardura] 8 mg PO HS 09/27/16 [History] Furosemide [Lasix] 40 mg PO BID@0900,1600 #60 tab 10/01/16 [Rx] Levofloxacin [Levaquin] 750 mg PO Q24H #5 tab 10/01/16 [Rx] Metoprolol Tartrate [Lopressor] 75 mg PO BID #90 tab 10/01/16 [Rx] Sildenafil [Revatio] 20 mg PO TID #90 tab 10/01/16 [Rx] Warfarin [Coumadin] 5 mg PO MOFR #0 10/01/16 [Rx] Warfarin [Coumadin] 7.5 mg PO SUTUWETHSA #0 10/01/16 [Rx] Follow up Appointment(s)/Referral(s): Elida Dominguez MD [STAFF PHYSICIAN] - 1 Week Gianluca Grissom MD [Primary Care Provider] - 1 Week Joyce Wilson DO [Doctor of Osteopathic Medicine] - 1 Week Discharge Disposition: HOME SELF-CARE
[2016-10-01] MEDS ORDERED: VERAPAMIL 80 MG TAB PO SCH (16:00)
[2016-10-01 17:04] VITALS: BP 124/65; PULSE 61; RESP 20; TEMP 97.5
--- NOTE | 2016-10-01 18:32 | PN ---
This patient is admitted with acute on chronic diastolic heart failure and possibly acute bronchitis. Patient is feeling better. Patient's heart rate was increasing with activities. Lopressor is increased to 75 mg b.i.d. patient otherwise remains comfortable. Patient can be evaluated with a 24-hour DCG as an outpatient to assess the rate-control. First and second heart sounds are normal. Lungs are clinically clear to auscultation and percussion ( ) negative.
== END 2016-10-01 17:37 | disposition home or self-care (01) | DRG 291 ==
LOC: EC 00:25 → 6SEL 02:04
PROVIDERS: ADMIT Internal Medicine Geriatric Medicine; ATTEND Internal Medicine Geriatric Medicine
DX: I11.0 Hypertensive heart disease with heart failure (principal); J96.01 Acute respiratory failure with hypoxia; J18.9 Pneumonia, unspecified organism; I27.2 Other secondary pulmonary hypertension; D69.59 Other secondary thrombocytopenia; R04.2 Hemoptysis; I24.9 Acute ischemic heart disease, unspecified; Z68.42 Body mass index [BMI] 45.0-49.9, adult; I48.2 Chronic atrial fibrillation; I50.33 Acute on chronic diastolic (congestive) heart failure; Z79.01 Long term (current) use of anticoagulants; E66.01 Morbid (severe) obesity due to excess calories; G47.33 Obstructive sleep apnea (adult) (pediatric); I08.3 Combined rheumatic disorders of mitral, aortic and tricuspid valves; R73.9 Hyperglycemia, unspecified; M10.9 Gout, unspecified; N40.0 Benign prostatic hyperplasia without lower urinary tract symptoms; R53.1 Weakness; G89.29 Other chronic pain; E78.5 Hyperlipidemia, unspecified; M15.9 Polyosteoarthritis, unspecified; M54.5 Low back pain; Z71.3 Dietary counseling and surveillance; Z90.49 Acquired absence of other specified parts of digestive tract; Z91.19 Patient's noncompliance with other medical treatment and regimen; Z79.899 Other long term (current) drug therapy; Z82.3 Family history of stroke; Z87.891 Personal history of nicotine dependence; Z96.651 Presence of right artificial knee joint
CPT/HCPCS: 36415; 71010; 78582; 80048; 80053; 80074; 80076; 82550; 82553; 83036; 83735; 83880; 84484; 85025; 85027; 85610; 85730; 86200; 86225; 86226; 86235; 86255; 86431; 87040; 87070; 87205; 87389; 93005; 93306; 94660; 94760; 96365; 96366; 96367; 96375; 99291

== ENCOUNTER 2017-02-19 06:24 | Day surgery (SDC) | payer MEDICARE, BC ==
[2017-02-13 14:42] VITALS: BMI 47.5
[~2017-02-19 06:24] MED LIST: ALPRAZolam 0.25 MG TAB PO PRN; ALPRAZolam 0.5 MG TAB PO PRN; ASPIRIN 325 MG TAB PO STA; ATORVASTATIN 80 MG TAB PO STA; NITROGLYCERIN SL TABS 0.4 MG TAB SUBLINGUAL PRN; SODIUM CHLORIDE 0.9% 1,000 ML in EMPTY BAG 1 BAG IV ONE
[2017-02-19 07:17] LABS: INR 1.5 (<1.2); Prothrombin Time 14.5 sec (9.0-12.0)
[2017-02-19] MEDS ORDERED: LIDOCAINE 2% INJ 20 MG/ML (20 ML MDV) ONE (07:22)
[2017-02-19] MEDS ORDERED: diphenhydrAMINE 50 MG/ML 1 ML VIAL ONE (07:25)
[2017-02-19] MEDS ORDERED: fentaNYL (PF) 50 MCG/ML 2 ML AMP ONE (07:25)
[2017-02-19 07:26] VITALS: PULSE 102
[2017-02-19] MEDS ORDERED: diphenhydrAMINE 50 MG/ML 1 ML VIAL IVP ONE (07:33)
[2017-02-19] MEDS ORDERED: fentaNYL (PF) 50 MCG/ML 2 ML AMP IV ONE (07:33)
[2017-02-19] MEDS ORDERED: RX INFO: IV CONTRAST WAS GIVEN 1 EACH MISC MISCELLANE PRN (08:01)
[2017-02-19 08:15] LABS: Site PA
[2017-02-19] MEDS ORDERED: WARFARIN 7.5 MG TAB PO SCH (08:15)
[2017-02-19] MEDS ORDERED: SODIUM CHLORIDE 0.9% 1,000 ML IV SCH (08:15)
[2017-02-19 08:16] LABS: Site FA
[2017-02-19 08:17] LABS: Site RA
[2017-02-19] MEDS ORDERED: SILDENAFIL 20 MG TAB PO SCH (09:00)
[2017-02-19] MEDS ORDERED: METOPROLOL TARTRATE 50 MG TAB PO SCH (09:00)
[2017-02-19] MEDS ORDERED: FUROSEMIDE 40 MG TAB PO SCH (09:00)
[2017-02-19] MEDS ORDERED: SPIRONOLACTONE 25 MG TAB PO SCH (09:00)
[2017-02-19] MEDS ORDERED: COLCHICINE 0.6 MG TAB PO SCH (09:00)
[2017-02-19] MEDS ORDERED: NON-FORMULARY DRUG (Benazepril Hcl [Lotensin] 20 MG) PO SCH (09:00)
[2017-02-19 10:21] VITALS: RESP 18
[2017-02-19 10:29] VITALS: BP 102/63
--- NOTE | 2017-02-19 15:15 | CC ---
Mr. Montilla is a 71-year-old male with a known history of chronic atrial fibrillation who was found to have evidence of pulmonary hypertension. He was evaluated for possible treatment. In view of that, and to further evaluate his right-sided pressure, recommendation made regarding right heart catheterization. The procedure was well as risks and complications were discussed with the patient who is in full understanding and agreement. PROCEDURE: The patient was brought to the [facility] in fasting semi-sedated state after introducing fentanyl and Benadryl and achieving moderate conscious sedated state using micropuncture catheter and the guidewire exchanged technique. The venous intracath and the right brachial vein was exchanged to a 6 Hungarian sheath. Following that, right heart catheterization was performed using Barton Jere Catheter, multiple pulsing pressure of the calculated cardiac output by thermodilution was calculated. Following that, a right femoral arterial sample was obtained. Following that, catheter and sheath were removed , hemostasis was obtained with compression on the right brachial area. There was no immediate complication. The patient is returned to his room in stable condition. FINDINGS: Right atrial saturation is 71%, pulmonary artery saturation is 70%, femoral artery saturation of 98%, cardiac output by thermodilution 8.6 L/min and ( ) 7.1 L/min. Pulmonary artery systolic pressure is 32, diastolic is 16 with a mean of 25 mmHg. Pulmonary capillary wedge pressure of V-wave of 11 with a mean of 9 mmHg. Right ventricle systolic pressure is 32 with an end- diastolic of 8 mmHg. Right atrial V-wave of 9 and a mean of 8 mmHg. CONCLUSION: No evidence of pulmonary hypertension. RECOMMENDATION: I have recommended to continue the present therapy, anticoagulation will be initiated. Depending on his progress, further recommendations will be made. Those findings and recommendations were discussed with the patient and his family who are in full understanding and agreement. Duration of procedure 25 minutes. MTDD
[2017-02-19] MEDS ORDERED: PRAVASTATIN SODIUM 20 MG TAB PO SCH (21:00)
[2017-02-19] MEDS ORDERED: NON-FORMULARY DRUG (Potassium Chloride [Klor-Con 10] 10 MEQ) PO SCH (21:00)
[2017-02-19] MEDS ORDERED: ALLOPURINOL 100 MG TAB PO SCH (21:00)
[2017-02-19] MEDS ORDERED: DOXAZOSIN MESYLATE 8 MG PO SCH (21:00)
[2017-02-20] MEDS ORDERED: WARFARIN 5 MG TAB PO SCH (08:02)
== END 2017-02-19 11:15 | disposition home or self-care (01) ==
LOC: CATHCVL 06:24
PROVIDERS: ATTEND Internal Medicine Interventional Cardiology
DX: I48.2 Chronic atrial fibrillation (principal); I10 Essential (primary) hypertension; E78.2 Mixed hyperlipidemia; G47.30 Sleep apnea, unspecified; E11.9 Type 2 diabetes mellitus without complications; I48.92 Unspecified atrial flutter; Z79.899 Other long term (current) drug therapy; Z79.01 Long term (current) use of anticoagulants
CPT/HCPCS: 93451; 99152; 85018; 82810; 85610; C1751; C1769; C1894; J1200; J3010

== ENCOUNTER 2017-10-13 15:36 | Inpatient (IN) | payer MEDICARE, BC ==
[2017-10-13 16:54] LABS: Albumin 3.6 g/dL (3.5-5.0); Calcium 9.1 mg/dL (8.4-10.2); Potassium 4.2 mmol/L (3.5-5.1); Total Protein 6.3 g/dL (6.3-8.2)
[2017-10-13 16:56] LABS: Creatine Kinase 49 U/L (55-170)
[2017-10-13 17:02] LABS: Basophils % (A) 0 %; Eosinophils % (A) 0 %; HCT 41.7 % (39.0-53.0); HGB 13.4 gm/dL (13.0-17.5); Lymphocytes % (A) 6 %; MCH 27.8 pg (25.0-35.0); MCHC 32.2 g/dL (31.0-37.0); MCV 86.2 fL (80.0-100.0); Mean Platelet Volume 6.8; Monocytes # (A) 1.1 k/uL (0-1.0); Monocytes % (A) 6 %; Neutrophils # (A) 15.1 k/uL (1.3-7.7); Neutrophils % (A) 87 %; Platelet Count 134 k/uL (150-450); RBC 4.84 m/uL (4.30-5.90); RDW 13.5 % (11.5-15.5); WBC 17.4 k/uL (3.8-10.6)
[2017-10-13 17:10] LABS: Creatine Kinase MB 1.2 ng/mL (0.0-2.4); Troponin I <0.012 ng/mL (0.000-0.034)
[2017-10-13 17:22] LABS: Partial Thromboplastin Time 40.4 sec (22.0-30.0); Prothrombin Time 44.7 sec (9.0-12.0)
[2017-10-13] MEDS ORDERED: IPRATROPIUM-ALBUTEROL 3 ML NEB INHALATION STA (17:45)
--- NOTE | 2017-10-13 17:51 | ED ---
General Adult HPI - General Chief complaint: Shortness of Breath Stated complaint: SOB Time Seen by Provider: 10/13/17 17:16 Source: patient, RN notes reviewed Mode of arrival: ambulatory Limitations: no limitations - History of Present Illness Initial comments: 72-year-old male presents to the emergency department with a chief complaint of cough and shortness of breath. Patient was treated for pneumonia and finished his antibiotics on Thursday. He states that the sputum went to White but then on Thursday he started to have some productive for yellow type sputum. He states he's also become much more short of breath. Patient denies any high fevers. He states he was placed on doxycycline. He denies any history of COPD. He does admit to history of pneumonia in the past. Patient states he is just not feeling much better so he thought that he should be reevaluated. Patient states is not currently having any other symptoms at this time. Patient denies any recent fever, chills, chest pain, back pain, abdominal pain, nausea vomiting, numbness or tingling, dysuria or hematuria, constipation or diarrhea, headaches or visual changes, or any other current symptoms. - Related Data Home Medications Medication Instructions Recorded Confirmed Allopurinol [Zyloprim] 100 mg PO HS 12/10/15 10/13/17 Potassium Chloride [Klor-Con 10] 10 meq PO 12/10/15 10/13/17 Pravastatin Sodium [Pravachol] 20 mg PO 12/10/15 10/13/17 Spironolactone [Aldactone] 25 mg PO DAILY 12/10/15 10/13/17 Benazepril HCl [Lotensin] 20 mg PO DAILY 09/27/16 10/13/17 Colchicine [Colcrys] 0.6 mg PO BID 09/27/16 10/13/17 Doxazosin Mesylate [Cardura] 8 mg PO HS 09/27/16 10/13/17 Metoprolol Tartrate [Lopressor] 50 mg PO TID 02/19/17 10/13/17 Furosemide [Lasix] 40 mg PO DAILY 10/13/17 10/13/17 Warfarin [Coumadin] 5 mg PO FR 10/13/17 10/13/17 Warfarin [Coumadin] 7.5 mg PO SUMOTUWETHSA 10/13/17 10/13/17 Previous Rx's Medication Instructions Recorded Sildenafil [Revatio] 20 mg PO TID #90 tab 10/01/16 Allergies Allergy/AdvReac Type Severity Reaction Status Date / Time No Known Allergies Allergy Verified 10/13/17 17:54 Review of Systems ROS Statement: Those systems with pertinent positive or pertinent negative responses have been documented in the HPI. ROS Other: All systems not noted in ROS Statement are negative. Past Medical History Past Medical History: Atrial Fibrillation, Hyperlipidemia, Hypertension, Sleep Apnea/CPAP/BIPAP Additional Past Medical History / Comment(s): Gout, benign prostatic hypertrophy , chronic low back pain, generalized osteoarthritis, obstructive sleep apnea and was unable to tolerate CPAP machine, borderline diabetes. PULMONARY EDEMA History of Any Multi-Drug Resistant Organisms: None Reported Past Surgical History: Cholecystectomy, Joint Replacement Additional Past Surgical History / Comment(s): Right total knee arthroplasty with Dr. Quan, ventral hernia repair Past Anesthesia/Blood Transfusion Reactions: No Reported Reaction Past Psychological History: No Psychological Hx Reported Smoking Status: Former smoker Past Alcohol Use History: Occasional Past Drug Use History: None Reported - Past Family History Father Family Medical History: No Reported History Additional Family Medical History / Comment(s): Dad at age 89 from stroke. Mother Family Medical History: No Reported History Additional Family Medical History / Comment(s): Mother is alive at age 90 with dementia. Sister(s) Additional Family Medical History / Comment(s): Patient has 2 sisters with no major medical problems. Patient does not have any brothers. Patient has 2 adult children with no major medical problems. General Exam - General Exam Comments Initial Comments: General: The patient is awake and alert, in no distress, and does not appear acutely ill. Eye: Pupils are equal, round and reactive to light, extra-ocular movements are intact; there is normal conjunctiva bilaterally. No signs of icterus. Ears, nose, mouth and throat: There are moist mucous membranes and no oral lesions. Neck: The neck is supple, there is no tenderness. Cardiovascular: There is a regular rate and rhythm. No murmur, rub or gallop is appreciated. Respiratory: Lungs are clear to auscultation, respirations are non-labored, breath sounds are equal but diminished. No wheezes, stridor, rales, or rhonchi. Gastrointestinal: Soft, non-distended, non-tender abdomen without masses or organomegaly noted. There is no rebound or guarding present. No CVA tenderness. Bowel sounds are unremarkable. Back: There is no tenderness to palpation in the midline. There is no obvious deformity. No rashes noted. Musculoskeletal: Normal ROM, no tenderness, There is no pedal edema. There is no calf tenderness or swelling. Sensation intact. Pulses equal bilaterally 2+. Neurological: CN II-XII intact, There are no obvious motor or sensory deficits. Coordination appears grossly intact. Speech is normal. Skin: Skin is warm and dry and no rashes or lesions are noted. Psychiatric: Cooperative, appropriate mood & affect, normal judgment. Limitations: no limitations Course Vital Signs 10/13/17 10/13/17 10/13/17 15:55 18:01 18:03 Temperature 97.8 F Pulse Rate 105 H 107 H 100 Respiratory 24 20 Rate Blood Pressure 107/64 118/69 O2 Sat by Pulse 93 L 90 L Oximetry 10/13/17 18:13 Temperature Pulse Rate 102 H Respiratory Rate Blood Pressure O2 Sat by Pulse Oximetry - Reevaluation(s) Reevaluation #1: 10/13/17 18:27 patient meets sepsis criteria. EKG Findings - EKG Comments: EKG Findings:: Atrial fibrillation, left axis deviation, incomplete right bundle branch block, ventricular rate 105 Medical Decision Making - Medical Decision Making 72-year-old male presents for shortness of breath with history of recently outpatient treated pneumonia. At this time x-rays reviewed that show an interstitial pneumonia. At this time we did start the patient on antibiotics. Blood cultures were sent. Dr. Low was contacted who does agree to the admission. We did order an echo Dr. Low follow-up on and pulmonology consult patient. Patient is in agreement with this plan and all questions have been answered. Patient will be admitted at this time. - Lab Data Result diagrams: 10/13/17 16:28 10/13/17 16:28 Lab Results 10/13/17 10/13/17 10/13/17 Range/Units 16:28 16:28 16:28 WBC 17.4 H (3.8-10.6) k/uL RBC 4.84 (4.30-5.90) m/uL Hgb 13.4 (13.0-17.5) gm/dL Hct 41.7 (39.0-53.0) % MCV 86.2 (80.0-100.0) fL MCH 27.8 (25.0-35.0) pg MCHC 32.2 (31.0-37.0) g/dL RDW 13.5 (11.5-15.5) % Plt Count 134 L (150-450) k/uL Neutrophils % 87 % Lymphocytes % 6 % Monocytes % 6 % Eosinophils % 0 % Basophils % 0 % Neutrophils # 15.1 H (1.3-7.7) k/uL Lymphocytes # 1.0 (1.0-4.8) k/uL Monocytes # 1.1 H (0-1.0) k/uL Eosinophils # 0.0 (0-0.7) k/uL Basophils # 0.0 (0-0.2) k/uL PT (9.0-12.0) sec INR (<1.2) APTT (22.0-30.0) sec Sodium 142 (137-145) mmol/L Potassium 4.2 (3.5-5.1) mmol/L Chloride 103 (98-107) mmol/L Carbon Dioxide 26 (22-30) mmol/L Anion Gap 13 mmol/L BUN 18 (9-20) mg/dL Creatinine 1.07 (0.66-1.25) mg/dL Est GFR (CKD-EPI)AfAm 82 (>60 ml/min/1.73 sqM) Est GFR (CKD-EPI)NonAf 71 (>60 ml/min/1.73 sqM) Glucose 103 H (74-99) mg/dL Calcium 9.1 (8.4-10.2) mg/dL Total Bilirubin 1.0 (0.2-1.3) mg/dL AST 21 (17-59) U/L ALT 25 (21-72) U/L Alkaline Phosphatase 81 (38-126) U/L Total Creatine Kinase 49 L (55-170) U/L CK-MB (CK-2) 1.2 (0.0-2.4) ng/mL CK-MB (CK-2) Rel Index 2.4 Troponin I <0.012 (0.000-0.034) ng/mL Total Protein 6.3 (6.3-8.2) g/dL Albumin 3.6 (3.5-5.0) g/dL 03/27/18 Range/Units 16:28 WBC (3.8-10.6) k/uL RBC (4.30-5.90) m/uL Hgb (13.0-17.5) gm/dL Hct (39.0-53.0) % MCV (80.0-100.0) fL MCH (25.0-35.0) pg MCHC (31.0-37.0) g/dL RDW (11.5-15.5) % Plt Count (150-450) k/uL Neutrophils % % Lymphocytes % % Monocytes % % Eosinophils % % Basophils % % Neutrophils # (1.3-7.7) k/uL Lymphocytes # (1.0-4.8) k/uL Monocytes # (0-1.0) k/uL Eosinophils # (0-0.7) k/uL Basophils # (0-0.2) k/uL PT 44.7 H (9.0-12.0) sec INR 5.0 H* (<1.2) APTT 40.4 H (22.0-30.0) sec Sodium (137-145) mmol/L Potassium (3.5-5.1) mmol/L Chloride (98-107) mmol/L Carbon Dioxide (22-30) mmol/L Anion Gap mmol/L BUN (9-20) mg/dL Creatinine (0.66-1.25) mg/dL Est GFR (CKD-EPI)AfAm (>60 ml/min/1.73 sqM) Est GFR (CKD-EPI)NonAf (>60 ml/min/1.73 sqM) Glucose (74-99) mg/dL Calcium (8.4-10.2) mg/dL Total Bilirubin (0.2-1.3) mg/dL AST (17-59) U/L ALT (21-72) U/L Alkaline Phosphatase (38-126) U/L Total Creatine Kinase (55-170) U/L CK-MB (CK-2) (0.0-2.4) ng/mL CK-MB (CK-2) Rel Index Troponin I (0.000-0.034) ng/mL Total Protein (6.3-8.2) g/dL Albumin (3.5-5.0) g/dL - Radiology Data Radiology results: report reviewed, image reviewed Disposition Clinical Impression: Sepsis, Failure of outpatient treatment, Interstitial pneumonia, Hypoxia, Elevated INR, Acute pulmonary edema, Atrial fibrillation Disposition: ADMITTED IP TO THIS [facility] Condition: Stable Referrals: Gianluca Grissom MD [Primary Care Provider] - 1-2 days Decision Date: 10/13/17 Decision Time: 18:28
[2017-10-13] MEDS ORDERED: SODIUM CHLORIDE 0.9% 1,000 ML IV STA (17:54)
--- NOTE | 2017-10-13 17:58 | XR ---
EXAMINATION TYPE: XR chest 2V DATE OF EXAM: 10/13/2017 COMPARISON: 09/28/2016 HISTORY: Cough and short of breath TECHNIQUE: Frontal and lateral views of the chest are obtained. FINDINGS: There is diffuse patchy interstitial infiltrate in the lungs. Heart size is normal. Pulmon ruth vascularity is difficult to evaluate because of the lung disease. Thoracic aorta is atheromatous. IMPRESSION: Extensive pulmonary interstitial infiltrates are significantly worse than old exam. This could relate to pulmonary fibrosis or heart failure. Correlation is needed. This is more likely inte rstitial pneumonia in view of the lack of any significant pleural fluid or cardiomegaly.
[2017-10-13] MEDS ORDERED: methylPREDNISolone SOD SUCCI 125 MG/2 ML VIAL IV STA (18:18)
[2017-10-13] MEDS ORDERED: cefTRIAXone IN SWFI 1,000 MG/10 ML SYRINGE IVP STA (18:21)
[2017-10-13] MEDS ORDERED: AZITHROMYCIN 500 MG in SODIUM CHLORIDE 0.9% 250 ML IVPB STA (18:21)
--- NOTE | 2017-10-13 18:35 | ED ---
Medical Decision Making - Medical Decision Making Diagnosis of acute pulmonary edema was entered in error. - Lab Data Result diagrams: 10/13/17 16:28 10/13/17 16:28 Lab Results 10/13/17 10/13/17 10/13/17 Range/Units 16:28 16:28 16:28 WBC 17.4 H (3.8-10.6) k/uL RBC 4.84 (4.30-5.90) m/uL Hgb 13.4 (13.0-17.5) gm/dL Hct 41.7 (39.0-53.0) % MCV 86.2 (80.0-100.0) fL MCH 27.8 (25.0-35.0) pg MCHC 32.2 (31.0-37.0) g/dL RDW 13.5 (11.5-15.5) % Plt Count 134 L (150-450) k/uL Neutrophils % 87 % Lymphocytes % 6 % Monocytes % 6 % Eosinophils % 0 % Basophils % 0 % Neutrophils # 15.1 H (1.3-7.7) k/uL Lymphocytes # 1.0 (1.0-4.8) k/uL Monocytes # 1.1 H (0-1.0) k/uL Eosinophils # 0.0 (0-0.7) k/uL Basophils # 0.0 (0-0.2) k/uL PT (9.0-12.0) sec INR (<1.2) APTT (22.0-30.0) sec Sodium 142 (137-145) mmol/L Potassium 4.2 (3.5-5.1) mmol/L Chloride 103 (98-107) mmol/L Carbon Dioxide 26 (22-30) mmol/L Anion Gap 13 mmol/L BUN 18 (9-20) mg/dL Creatinine 1.07 (0.66-1.25) mg/dL Est GFR (CKD-EPI)AfAm 82 (>60 ml/min/1.73 sqM) Est GFR (CKD-EPI)NonAf 71 (>60 ml/min/1.73 sqM) Glucose 103 H (74-99) mg/dL Calcium 9.1 (8.4-10.2) mg/dL Total Bilirubin 1.0 (0.2-1.3) mg/dL AST 21 (17-59) U/L ALT 25 (21-72) U/L Alkaline Phosphatase 81 (38-126) U/L Total Creatine Kinase 49 L (55-170) U/L CK-MB (CK-2) 1.2 (0.0-2.4) ng/mL CK-MB (CK-2) Rel Index 2.4 Troponin I <0.012 (0.000-0.034) ng/mL Total Protein 6.3 (6.3-8.2) g/dL Albumin 3.6 (3.5-5.0) g/dL 10/13/17 Range/Units 16:28 WBC (3.8-10.6) k/uL RBC (4.30-5.90) m/uL Hgb (13.0-17.5) gm/dL Hct (39.0-53.0) % MCV (80.0-100.0) fL MCH (25.0-35.0) pg MCHC (31.0-37.0) g/dL RDW (11.5-15.5) % Plt Count (150-450) k/uL Neutrophils % % Lymphocytes % % Monocytes % % Eosinophils % % Basophils % % Neutrophils # (1.3-7.7) k/uL Lymphocytes # (1.0-4.8) k/uL Monocytes # (0-1.0) k/uL Eosinophils # (0-0.7) k/uL Basophils # (0-0.2) k/uL PT 44.7 H (9.0-12.0) sec INR 5.0 H* (<1.2) APTT 40.4 H (22.0-30.0) sec Sodium (137-145) mmol/L Potassium (3.5-5.1) mmol/L Chloride (98-107) mmol/L Carbon Dioxide (22-30) mmol/L Anion Gap mmol/L BUN (9-20) mg/dL Creatinine (0.66-1.25) mg/dL Est GFR (CKD-EPI)AfAm (>60 ml/min/1.73 sqM) Est GFR (CKD-EPI)NonAf (>60 ml/min/1.73 sqM) Glucose (74-99) mg/dL Calcium (8.4-10.2) mg/dL Total Bilirubin (0.2-1.3) mg/dL AST (17-59) U/L ALT (21-72) U/L Alkaline Phosphatase (38-126) U/L Total Creatine Kinase (55-170) U/L CK-MB (CK-2) (0.0-2.4) ng/mL CK-MB (CK-2) Rel Index Troponin I (0.000-0.034) ng/mL Total Protein (6.3-8.2) g/dL Albumin (3.5-5.0) g/dL Disposition Clinical Impression: Sepsis, Failure of outpatient treatment, Interstitial pneumonia, Hypoxia, Elevated INR, Atrial fibrillation Disposition: ADMITTED IP TO THIS HOSP Condition: Stable Referrals: Gianluca Grissom MD [Primary Care Provider] - 1-2 days
[2017-10-13 20:06] VITALS: BMI 51.3
[2017-10-13] MEDS: SODIUM CHLORIDE 0.9% 1,000 ML IV SCH (20:13)
[2017-10-13] MEDS: METOPROLOL TARTRATE 50 MG TAB PO SCH (20:23)
[2017-10-13] MEDS: POTASSIUM CHLORIDE ER 10 MEQ TAB.ER.PRT PO SCH (20:23)
[2017-10-13] MEDS: PRAVASTATIN SODIUM 20 MG TAB PO SCH (20:24)
[2017-10-13] MEDS: SILDENAFIL 20 MG TAB PO SCH (20:24)
[2017-10-13] MEDS: DOXAZOSIN 4 MG TAB PO SCH (20:24)
[2017-10-13] MEDS: ALLOPURINOL 100 MG TAB PO SCH (20:24)
[2017-10-13] MEDS: COLCHICINE 0.6 MG EACH PO SCH (20:25)
[2017-10-13 20:51] LABS: Glucose,Whole Blood 113 mg/dL (75-99)
[2017-10-13] MEDS ORDERED: cefTRIAXone 1,000 MG VIAL (IM USE) IM SCH (21:00)
[2017-10-14] MEDS: cefTRIAXone IN SWFI 1,000 MG/10 ML SYRINGE IVP SCH ×3 (00:23→21:21)
[2017-10-14] MEDS: methylPREDNISolone SOD SUCCI 125 MG/2 ML VIAL IV SCH ×2 (00:23→05:27)
[2017-10-14] MEDS: SODIUM CHLORIDE 0.9% 1,000 ML IV SCH ×2 (05:26→18:08)
[2017-10-14 07:16] LABS: Glucose,Whole Blood 182 mg/dL (75-99)
[2017-10-14] MEDS: LISINOPRIL 20 MG TAB PO SCH (08:06)
[2017-10-14] MEDS: SPIRONOLACTONE 25 MG TAB PO SCH (08:06)
[2017-10-14] MEDS: AZITHROMYCIN 500 MG in SODIUM CHLORIDE 0.9% 250 ML IVPB SCH (08:06)
[2017-10-14] MEDS: METOPROLOL TARTRATE 50 MG TAB PO SCH ×3 (08:06→21:15)
[2017-10-14] MEDS: COLCHICINE 0.6 MG EACH PO SCH ×2 (08:06→21:15)
[2017-10-14] MEDS: SILDENAFIL 20 MG TAB PO SCH ×3 (08:06→21:15)
[2017-10-14] MEDS ORDERED: FUROSEMIDE 40 MG TAB PO SCH (09:00)
[2017-10-14 09:19] LABS: INR 4.5 (<1.2); Prothrombin Time 40.9 sec (9.0-12.0)
--- NOTE | 2017-10-14 10:27 | P.CNPUL ---
History of Present Illness Consult date: 10/14/17 Reason for consult: dyspnea, cough, pneumonia Chief complaint: Cough and shortness of breath History of present illness: This is a 72-year-old gentleman who presented to the emergency department complaining of cough and shortness of breath. The patient states he was treated for pneumonia as an outpatient with doxycycline. He states he took about 10 days of doxycycline and was starting to feel better. However he completed the course on Thursday and after that started to feel worse again. He is complaining of cough productive of green-brown phlegm. He denies fevers and chills. The patient is known to our pulmonary office. He is following with Dr. Rm for pulmonary hypertension. The patient did have a right heart cath which showed no evidence of pulmonary hypertension. The patient was supposed to do a CPAP re-titration study however he states he was intolerant of the CPAP and he never followed up. He refuses adamantly to use a CPAP. Review of Systems All systems: negative Past Medical History Past Medical History: Atrial Fibrillation, Hyperlipidemia, Hypertension, Sleep Apnea/CPAP/BIPAP Additional Past Medical History / Comment(s): Gout, benign prostatic hypertrophy , chronic low back pain, generalized osteoarthritis, obstructive sleep apnea and was unable to tolerate CPAP machine, borderline diabetes. PULMONARY EDEMA History of Any Multi-Drug Resistant Organisms: None Reported Past Surgical History: Cholecystectomy, Joint Replacement Additional Past Surgical History / Comment(s): Right total knee arthroplasty with Dr. Quan, ventral hernia repair Past Anesthesia/Blood Transfusion Reactions: No Reported Reaction Past Psychological History: No Psychological Hx Reported Smoking Status: Former smoker Past Alcohol Use History: Occasional Additional Past Alcohol Use History / Comment(s): She was a smoker of one pack per day for 10 years and quit 40 years ago. He denies any medical marijuana, marijuana or street drug use. He does drink alcohol 3-4 beers every day for 10- 15 years. He is and lives at home with his . Past Drug Use History: None Reported - Past Family History Father Family Medical History: No Reported History Additional Family Medical History / Comment(s): Dad at age 89 from stroke. Mother Family Medical History: No Reported History Additional Family Medical History / Comment(s): Mother is alive at age 90 with dementia. Sister(s) Additional Family Medical History / Comment(s): Patient has 2 sisters with no major medical problems. Patient does not have any brothers. Patient has 2 adult children with no major medical problems. Medications and Allergies Home Medications Medication Instructions Recorded Confirmed Type RX: Allopurinol [Zyloprim] 100 mg PO HS 12/10/15 10/13/17 History RX: Potassium Chloride [Klor-Con 10 meq PO HS 12/10/15 10/13/17 History 10] RX: Pravastatin Sodium [Pravachol] 20 mg PO HS 12/10/15 10/13/17 History RX: Spironolactone [Aldactone] 25 mg PO DAILY 12/10/15 10/13/17 History RX: Benazepril HCl [Lotensin] 20 mg PO DAILY 09/27/16 10/13/17 History RX: Colchicine [Colcrys] 0.6 mg PO BID 09/27/16 10/13/17 History RX: Doxazosin Mesylate [Cardura] 8 mg PO HS 09/27/16 10/13/17 History RX: Sildenafil [Revatio] 20 mg PO TID #90 tab 10/01/16 10/13/17 Rx RX: Metoprolol Tartrate [Lopressor] 50 mg PO TID 02/19/17 10/13/17 History RX: Furosemide [Lasix] 40 mg PO DAILY 10/13/17 10/13/17 History RX: Warfarin [Coumadin] 5 mg PO FR 10/13/17 10/13/17 History RX: Warfarin [Coumadin] 7.5 mg PO SUMOTUWETHSA 10/13/17 10/13/17 History Allergies Allergy/AdvReac Type Severity Reaction Status Date / Time No Known Allergies Allergy Verified 10/13/17 17:54 Physical Exam Osteopathic Statement: *. No significant issues noted on an osteopathic structural exam other than those noted in the History and Physical/Consult. Vitals: Vital Signs Temp Pulse Pulse Resp BP BP Pulse Ox 10/14/17 06:14 96.7 F L 105 H 18 130/73 92 L 10/13/17 23:00 97.3 F L 90 18 122/67 93 L 10/13/17 20:03 97.2 F L 101 H 18 130/69 91 L 10/13/17 19:38 98.8 F 110 H 17 107/63 96 10/13/17 18:13 102 H 10/13/17 18:03 100 10/13/17 18:01 107 H 20 118/69 90 L 10/13/17 15:55 97.8 F 105 H 24 107/64 93 L Intake and Output 10/13/17 10/14/17 10/14/17 22:59 06:59 14:59 Output Total 400 Balance -400 Output: Urine 400 Other: # Voids 1 Weight 167 kg Gen.: Patient is alert and oriented 3, no acute distress, morbidly obese Cardiovascular: Regular rate and rhythm, S1/S2 Lungs: Scattered crackles bilaterally Abdomen: Soft nontender nondistended positive bowel sounds Extremities: 1-2+ pitting edema with chronic venous stasis. Results - Laboratory Findings CBC and BMP: 10/13/17 16:28 10/13/17 16:28 PT/INR, D-dimer PT 40.9 sec (9.0-12.0) H 10/14/17 08:24 INR 4.5 (<1.2) H 10/14/17 08:24 Abnormal lab findings: Abnormal Labs 10/13/17 10/13/17 10/13/17 16:28 16:28 16:28 WBC 17.4 H Plt Count 134 L Neutrophils # 15.1 H Monocytes # 1.1 H PT INR APTT Glucose 103 H POC Glucose (mg/dL) Total Creatine Kinase 49 L 10/13/17 10/13/17 10/14/17 16:28 20:48 07:14 WBC Plt Count Neutrophils # Monocytes # PT 44.7 H INR 5.0 H* APTT 40.4 H Glucose POC Glucose (mg/dL) 113 H 182 H Total Creatine Kinase 10/14/17 08:24 WBC Plt Count Neutrophils # Monocytes # PT 40.9 H INR 4.5 H APTT Glucose POC Glucose (mg/dL) Total Creatine Kinase - Diagnostic Findings Chest x-ray: report reviewed, image reviewed Assessment and Plan Assessment: 3/4 SIRS, sepsis Acute hypoxemia Community acquired pneumonia AECHF with elevated BNP, diastolic Supratherapeutic coumadin coagulapathy Probably underlying pulmonary edema Super morbid obesity Obstructive sleep apnea, patient noncompliant with CPAP Hypertension Dyslipidemia BPH Chronic back pain Gout Osteoarthritis Diabetes mellitus type 2 O2 to maintain saturation greater than or equal to 88% Bronchodilators Gentle diuresis Antibiotics: Azithromycin and Rocephin Hold Coumadin until INR at goal of 2-3 Steroid taper Sputum culture Blood cultures Decrease IVF Echocardiogram Increase Lasix to BID for now Serial chest x-rays GI and DVT prophylaxis Incentive spirometry and pulmonary hygiene Will discuss the need for continued sildenafil with Dr. Desir, PH specialist that has been following Mr. Montilla given normal RHC. Thank you for this consultation. We will continue to follow along.
[2017-10-14 12:12] LABS: Glucose,Whole Blood 195 mg/dL (75-99)
--- NOTE | 2017-10-14 12:34 | ECHOF ---
Referral Reason:SOB MEASUREMENTS -------- HEIGHT: 180.3 cm WEIGHT: 166.9 kg BP: 130/77 RVIDd: 3.6 cm (< 3.3) IVSd: 1.2 cm (0.6 - 1.1) LVIDd: 5.1 cm (3.9 - 5.3) LVPWd: 1.3 cm (0.6 - 1.1) IVSs: 1.9 cm LVIDs: 3.5 cm LVPWs: 2.0 cm LA Diam: 4.1 cm (2.7 - 3.8) LAESV Index (A-L): 48.22 ml/m Ao Diam: 4.2 cm (2.0 - 3.7) AV Cusp: 2.9 cm (1.5 - 2.6) MV EXCURSION: 26.551 mm (> 18.000) MV EF SLOPE: 239 mm/s (70 - 150) EPSS: 0.4 cm RAP: 5.00 mmHg RVSP: 48.22 mmHg FINDINGS -------- Atrial fibrillation. This was a technically adequate study. The left ventricular size is normal. There is mild concentric left ventricular hypertrophy. Overa ll left ventricular systolic function is normal with, an EF between 55 - 60 %. The right ventricle is mildly enlarged. LA is severely dilated >40 ml/m2 The right atrium is normal in size. There is mild aortic valve sclerosis. The mitral valve is normal. Mild tricuspid regurgitation present. There is moderate pulmonary hypertension. The right ventric ular systolic pressure, as measured by Doppler, is 48.22mmHg. The pulmonic valve was not well visualized. The aortic root is dilated measuring 4.2cm. Normal inferior vena cava with normal inspiratory collapse consistent with estimated right atrial pre ssure of 5 mmHg. The inferior vena cava is mildly dilated. There is no pericardial effusion. CONCLUSIONS -------- 1. Atrial fibrillation. 2. This was a technically adequate study. 3. The left ventricular size is normal. 4. There is mild concentric left ventricular hypertrophy. 5. Overall left ventricular systolic function is normal with, an EF between 55 - 60 %. 6. The right ventricle is mildly enlarged. 7. LA is severely dilated >40 ml/m2 8. The right atrium is normal in size. 9. There is mild aortic valve sclerosis. 10. The mitral valve is normal. 11. Mild tricuspid regurgitation present. 12. There is moderate pulmonary hypertension. 13. The right ventricular systolic pressure, as measured by Doppler, is 48.22mmHg. 14. The pulmonic valve was not well visualized. 15. The aortic root is dilated measuring 4.2cm. 16. Normal inferior vena cava with normal inspiratory collapse consistent with estimated right atrial pressure of 5 mmHg. 17. The inferior vena cava is mildly dilated. 18. There is no pericardial effusion. DYER ASSISTANT: Lennie Auguste RDCS
[2017-10-14] MEDS ORDERED: ENOXAPARIN 40 MG/0.4 ML SYRINGE SQ SCH (16:00)
--- NOTE | 2017-10-14 16:23 | P.HPIM ---
History of Present Illness H&P Date: 10/14/17 Chief Complaint: SOB 64-year-old male patient of Dr. Grissom and Dr. Dominguez with known medical history of hypertension, hyperlipidemia and benign prostatic hypertrophy , chronic back pain, gout, osteoarthritis and borderline diabetes chronic atrial fibrillation, pulmnary hpertension , history of obstructive sleep apnea but unable to tolerate CPAP but currently not feeling CPAP at home. presents with shortness of breath for a couple of days worsening with activity. He saw Dr. Grissom. Doxycycline for 7 days. Patient finished his treatment on Thursday with worsening of symptoms after completion of the treatment therefore decided to come to the ER. He does have significant infiltrate on the chest x-ray concerning for interstitial pneumonia. BNP was elevated concerning for acute diastolic heart failure. Continue patient on Lasix IV twice a day along with antibiotic in the form of ceftriaxone and azithromycin. Sputum culture will be collected. Mycoplasma and Legionella will be checked. Review of Systems Constitutional: Denies chills, Denies fever, Denies lethargy, Denies malaise, Denies poor appetite, Denies weakness, Denies weight loss Eyes: denies decreased vision, denies diplopia, denies discharge, denies pain Ears: deny: decreased hearing Ears, nose, mouth and throat: Denies dental pain, Denies headache, Denies nasal discharge, Denies nose pain Cardiovascular: Denies chest pain, Denies decreased exercise tolerance, Denies edema, Denies high blood pressure, Denies irregular heart beat, Denies palpitations, Denies paroxysmal nocturnal dyspnea, Denies rapid heart beat Respiratory: Endorses congestion, cough with greenish to brownish sputum production, dyspnea wheezing Gastrointestinal: Denies abdominal pain, Denies change in bowel habits, Denies coffee ground emesis, Denies early satiety, Denies excessive gas, Denies heartburn, Denies hematemesis, Denies hematochezia, Denies loss of appetite, Denies nausea, Denies vomiting Genitourinary: Denies dysuria, Denies flank pain, Denies kidney stones, Denies menorrhagia, Denies urgency, Denies urinary frequency Musculoskeletal: Denies gait dysfunction, Denies limitation of motion, Denies morning stiffness, Denies muscle cramps Integumentary: Denies rash, Denies wounds, Denies brittle nails, Denies change in hair/nails, Denies darkening of skin Neurological: Denies balance difficulties, Denies change in speech, Denies double vision, Denies gait dysfunction, Denies loss of vision, Denies motor disturbance, Denies numbness, Denies paralysis, Denies paresthesias, Denies seizures Psychiatric: Denies anxiety, Denies depression Endocrine: Denies excessive sweating, Denies excessive thirst, Denies high blood sugars, Denies palpitations Hematologic/Lymphatic: Denies easy bruising, Denies lymphadenopathy Past Medical History Past Medical History: Atrial Fibrillation, Hyperlipidemia, Hypertension, Sleep Apnea/CPAP/BIPAP Additional Past Medical History / Comment(s): Gout, benign prostatic hypertrophy , chronic low back pain, generalized osteoarthritis, obstructive sleep apnea and was unable to tolerate CPAP machine, borderline diabetes. PULMONARY EDEMA History of Any Multi-Drug Resistant Organisms: None Reported Past Surgical History: Cholecystectomy, Joint Replacement Additional Past Surgical History / Comment(s): Right total knee arthroplasty with Dr. Quna, ventral hernia repair Past Anesthesia/Blood Transfusion Reactions: No Reported Reaction Past Psychological History: No Psychological Hx Reported Smoking Status: Former smoker Past Alcohol Use History: Occasional Additional Past Alcohol Use History / Comment(s): She was a smoker of one pack per day for 10 years and quit 40 years ago. He denies any medical marijuana, marijuana or street drug use. He does drink alcohol 3-4 beers every day for 10- 15 years. He is and lives at home with his . Past Drug Use History: None Reported - Past Family History Father Family Medical History: No Reported History Additional Family Medical History / Comment(s): Dad at age 89 from stroke. Mother Family Medical History: No Reported History Additional Family Medical History / Comment(s): Mother is alive at age 90 with dementia. Sister(s) Additional Family Medical History / Comment(s): Patient has 2 sisters with no major medical problems. Patient does not have any brothers. Patient has 2 adult children with no major medical problems. Medications and Allergies Home Medications Medication Instructions Recorded Confirmed Type Allopurinol [Zyloprim] 100 mg PO HS 12/10/15 10/13/17 History Potassium Chloride [Klor-Con 10] 10 meq PO 12/10/15 10/13/17 History Pravastatin Sodium [Pravachol] 20 mg PO 12/10/15 10/13/17 History Spironolactone [Aldactone] 25 mg PO DAILY 12/10/15 10/13/17 History Benazepril HCl [Lotensin] 20 mg PO DAILY 09/27/16 10/13/17 History Colchicine [Colcrys] 0.6 mg PO BID 09/27/16 10/13/17 History Doxazosin Mesylate [Cardura] 8 mg PO HS 09/27/16 10/13/17 History Sildenafil [Revatio] 20 mg PO TID #90 tab 10/01/16 10/13/17 Rx Metoprolol Tartrate [Lopressor] 50 mg PO TID 02/19/17 10/13/17 History Furosemide [Lasix] 40 mg PO DAILY 10/13/17 10/13/17 History Warfarin [Coumadin] 5 mg PO FR 10/13/17 10/13/17 History Warfarin [Coumadin] 7.5 mg PO SUMOTUWETHSA 10/13/17 10/13/17 History Allergies Allergy/AdvReac Type Severity Reaction Status Date / Time No Known Allergies Allergy Verified 10/13/17 17:54 Physical Exam Vitals: Vital Signs Temp Pulse Pulse Resp BP BP Pulse Ox 10/14/17 15:00 96.8 F L 109 H 18 130/74 92 L 10/14/17 06:14 96.7 F L 105 H 18 130/73 92 L 10/13/17 23:00 97.3 F L 90 18 122/67 93 L 10/13/17 20:03 97.2 F L 101 H 18 130/69 91 L 10/13/17 19:38 98.8 F 110 H 17 107/63 96 10/13/17 18:13 102 H 10/13/17 18:03 100 10/13/17 18:01 107 H 20 118/69 90 L Intake and Output 10/14/17 10/14/17 10/14/17 06:59 14:59 22:59 Intake Total 1000 Output Total 400 Balance -400 1000 Intake: Intake, IV Titration 800 Amount Sodium Chloride 0.9% 1, 800 000 ml @ 10 mls/hr IV . Q24H [facility] Rx#:[id number] Oral 200 Output: Urine 400 Other: Voiding Method Toilet - Constitutional General appearance: cooperative, no acute distress, obese, lying comfortably in bed on 2 L of oxygen - EENT Eyes: anicteric sclerae, PERRLA, normal appearance ENT: hearing grossly normal - Neck Neck: no lymphadenopathy, normal ROM, no other, no rigidity, no stridor, no thyromegaly - Respiratory Respiratory: bilateral crackles and diffuse wheezing - Cardiovascular Rhythm: regular Heart sounds: normal: S1, S2 Abnormal Heart Sounds: no systolic murmur, no diastolic murmur, no rub, no S3 Gallop, no S4 Gallop, no click, no other - Gastrointestinal General gastrointestinal: normal bowel sounds, soft, nontender - Integumentary Integumentary: no rash - Neurologic Neurologic: CNII-XII intact - Musculoskeletal Musculoskeletal: gait normal, strength equal bilaterally - Psychiatric Psychiatric: A&O x's 3, appropriate affect Results CBC & Chem 7: 10/13/17 16:28 10/13/17 16:28 Labs: Abnormal Lab Results - Last 24 Hours (Table) 10/13/17 10/13/17 10/13/17 Range/Units 16:28 16:28 16:28 WBC 17.4 H (3.8-10.6) k/uL Plt Count 134 L (150-450) k/uL Neutrophils # 15.1 H (1.3-7.7) k/uL Monocytes # 1.1 H (0-1.0) k/uL PT (9.0-12.0) sec INR (<1.2) APTT (22.0-30.0) sec Glucose 103 H (74-99) mg/dL POC Glucose (mg/dL) (75-99) mg/dL Total Creatine Kinase 49 L (55-170) U/L 10/13/1718 10/14/17 Range/Units 16:28 20:48 07:14 WBC (3.8-10.6) k/uL Plt Count (150-450) k/uL Neutrophils # (1.3-7.7) k/uL Monocytes # (0-1.0) k/uL PT 44.7 H (9.0-12.0) sec INR 5.0 H* (<1.2) APTT 40.4 H (22.0-30.0) sec Glucose (74-99) mg/dL POC Glucose (mg/dL) 113 H 182 H (75-99) mg/dL Total Creatine Kinase (55-170) U/L 10/14/17 10/14/17 Range/Units 08:24 11:52 WBC (3.8-10.6) k/uL Plt Count (150-450) k/uL Neutrophils # (1.3-7.7) k/uL Monocytes # (0-1.0) k/uL PT 40.9 H (9.0-12.0) sec INR 4.5 H (<1.2) APTT (22.0-30.0) sec Glucose (74-99) mg/dL POC Glucose (mg/dL) 195 H (75-99) mg/dL Total Creatine Kinase (55-170) U/L Thrombosis Risk Factor Assmnt - DVT/VTE Prophylaxis DVT/VTE Prophylaxis: Pharmacologic Prophylaxis ordered - Choose All That Apply Any of the Below Risk Factors Present?: Yes Each Factor Represents 1 point: Obesity (BMI >25), Serious lung disease incl. pneumonia (< 1month) Other Risk Factors: Yes Each Risk Factor Represents 2 Points: Age 61-74 years Other congenital or acquired thrombophilia - If yes, enter type in comment: No Thrombosis Risk Factor Assessment Total Risk Factor Score: 4 Thrombosis Risk Factor Assessment Level: Moderate Risk Assessment and Plan Plan: 1. Acute hypoxic respiratory failure secondary to interstitial pneumonia, acute diastolic heart failure. Continue O2 to maintain a pulse ox equal to or greater than 92%. Consult with pulmonary medicine and cardiology. Repeat troponins and echocardiogram ordered. Initiated on ceftriaxone and azithromycin for the pneumonia. Mycoplasma, Legionella ordered. Continue Lasix 40 mg po twice a day for diuresis. Continue Solu-Medrol 40 IV every 8 for wheezing 2. Atrial fibrillation with rapid ventricular response with history of chronic atrial fibrillation. Hold Coumadin was supratherapeutic INR . Metoprolol resumed. Continue to monitor INR. Cardiology and pulmonary medicine consult. 3. Supratherapeutic INR on Coumadin. Hold Coumadin. PT/INR ordered 4. Hypertension. Continue benazepril 20 mg daily and Lopressor 50 mg twice daily, Aldactone 25 mg daily. 5. Acute on chronic diastolic heart failure. Echocardiogram ordered. Continue Lasix 40 mg po push every 12 hours and Aldactone 25 mg daily. INR monitoring. Daily weight 6. Benign prostatic hypertrophy. Continue Cardura. 7. Hyperlipidemia. Continue Pravachol. 8. Gout unspecified. Continue colchicine and allopurinol. 9. Chronic low back pain and generalized osteoarthritis, stable. 10. Borderline diabetes. Humalog scale 11. DVT prophylaxis. INR supratherapeutic 12. Gastrointestinal prophylaxis. Pepcid 20 mg by mouth twice a day Patient will be admitted to the hospital for a minimum of 2 night stay. Discharge plan: To be determined. Time with Patient: Greater than 30
[2017-10-14] MEDS: FUROSEMIDE 40 MG TAB PO SCH (16:58)
[2017-10-14] MEDS: methylPREDNISolone SOD SUCCI 40 MG/ML 1 ML VIAL IV SCH (16:58)
[2017-10-14 17:47] LABS: Glucose,Whole Blood 189 mg/dL (75-99)
[2017-10-14] MEDS: INSULIN ASPART 100 UNIT/ML 1 ML 10 ML VIAL SQ SCH ×2 (18:08→21:20)
[2017-10-14] MEDS: BUDESONIDE 0.5 MG/2 ML NEBU INHALATION SCH (20:18)
[2017-10-14] MEDS: IPRATROPIUM-ALBUTEROL 3 ML NEB INHALATION PRN (20:18)
[2017-10-14 20:39] LABS: Glucose,Whole Blood 148 mg/dL (75-99)
[2017-10-14] MEDS: ALLOPURINOL 100 MG TAB PO SCH (21:15)
[2017-10-14] MEDS: POTASSIUM CHLORIDE ER 10 MEQ TAB.ER.PRT PO SCH (21:15)
[2017-10-14] MEDS: DOXAZOSIN 4 MG TAB PO SCH (21:15)
[2017-10-14] MEDS: PRAVASTATIN SODIUM 20 MG TAB PO SCH (21:15)
[2017-10-14] MEDS: guaiFENesin 600 MG TABLET.ER PO SCH (21:20)
[2017-10-14] MEDS: FAMOTIDINE 20 MG TAB PO SCH (21:20)
[2017-10-14 22:30] LABS: Hemoglobin A1C 5.8 % (4.0-6.0)
[2017-10-15] MEDS: methylPREDNISolone SOD SUCCI 40 MG/ML 1 ML VIAL IV SCH ×3 (00:28→17:09)
[2017-10-15 07:10] LABS: Glucose,Whole Blood 160 mg/dL (75-99)
[2017-10-15] MEDS: AZITHROMYCIN 500 MG in SODIUM CHLORIDE 0.9% 250 ML IVPB SCH (07:31)
[2017-10-15] MEDS: INSULIN ASPART 100 UNIT/ML 1 ML 10 ML VIAL SQ SCH ×4 (07:32→21:55)
[2017-10-15] MEDS: cefTRIAXone IN SWFI 1,000 MG/10 ML SYRINGE IVP SCH (07:32)
[2017-10-15] MEDS: guaiFENesin 600 MG TABLET.ER PO SCH ×2 (07:33→21:50)
[2017-10-15] MEDS: SPIRONOLACTONE 25 MG TAB PO SCH (07:33)
[2017-10-15] MEDS: SILDENAFIL 20 MG TAB PO SCH ×3 (07:33→21:51)
[2017-10-15] MEDS: FAMOTIDINE 20 MG TAB PO SCH ×2 (07:33→21:51)
[2017-10-15] MEDS: FUROSEMIDE 40 MG TAB PO SCH ×2 (07:33→17:09)
[2017-10-15] MEDS: LISINOPRIL 20 MG TAB PO SCH (07:33)
[2017-10-15] MEDS: METOPROLOL TARTRATE 50 MG TAB PO SCH ×3 (07:33→21:51)
[2017-10-15] MEDS: COLCHICINE 0.6 MG EACH PO SCH ×2 (07:33→21:51)
[2017-10-15] MEDS: BUDESONIDE 0.5 MG/2 ML NEBU INHALATION SCH ×2 (08:29→20:04)
[2017-10-15] MEDS: IPRATROPIUM-ALBUTEROL 3 ML NEB INHALATION PRN ×2 (08:29→20:04)
--- NOTE | 2017-10-15 09:19 | XR ---
EXAMINATION TYPE: XR chest 2V DATE OF EXAM: 10/15/2017 COMPARISON: 10/13/2017 HISTORY: 72-year-old male CHF and pneumonia, follow-up TECHNIQUE: Frontal and lateral views FINDINGS: Heart borderline enlarged. Diffuse interstitial densities persist. No significant pleural effusion se en on lateral view. Opacities are somewhat patchy in the lower lungs. Aeration may be minimally impro brian in the upper to mid lungs. IMPRESSION: Continued interstitial infiltrates, slight improvement in aeration in the upper to mid lungs. Again, no significant effusion.
[2017-10-15 10:24] LABS: Partial Thromboplastin Time 40.2 sec (22.0-30.0); Prothrombin Time 52.7 sec (9.0-12.0)
[2017-10-15 10:35] LABS: Basophils % (A) 0 %; Eosinophils # (A) 0.1 k/uL (0-0.7); Eosinophils % (A) 0 %; HCT 39.3 % (39.0-53.0); Lymphocytes # (A) 0.4 k/uL (1.0-4.8); Lymphocytes % (A) 3 %; MCH 28.7 pg (25.0-35.0); MCV 86.9 fL (80.0-100.0); Mean Platelet Volume 6.3; Monocytes # (A) 0.4 k/uL (0-1.0); Monocytes % (A) 2 %; Neutrophils % (A) 95 %; Platelet Count 145 k/uL (150-450); RBC 4.52 m/uL (4.30-5.90); RDW 13.3 % (11.5-15.5); WBC 15.9 k/uL (3.8-10.6)
[2017-10-15 10:53] LABS: INR 5.8 (<1.2)
[2017-10-15] MEDS ORDERED: PHYTONADIONE ORAL 5 MG/5 ML ORAL.SYRG PO STA (11:33)
--- NOTE | 2017-10-15 11:51 | PN ---
PROGRESS NOTE He was seen on 10/15/2017. He is less short of breath and is basically almost back to his baseline. On physical examination, respiratory rate is 18, pulse rate 107, temperature 98, blood pressure 121/78, O2 saturation on 2 L by nasal cannula is 92%. HEENT is unremarkable. Chest reveals wheeze only on forced expiration. Cardiovascular system reveals an S1, S2. Abdomen is soft. There is no edema. White count of 15.9, hemoglobin of 13. PT, INR of 5.8. IMPRESSION AT THIS TIME: 1. Community-acquired pneumonia. 2. Supratherapeutic Coumadin coagulopathy. 3. Obstructive sleep apnea, noncompliant with CPAP. 4. Bronchospasm. 5. Osteoarthritis. 6. Diabetes mellitus, type 2. Continue steroid taper. Hold Coumadin. Continue antibiotics. Agree with possible discharge planning. Would continue sildenafil for pulmonary hypertension. Depending on how the patient does, we shall make further changes to his care. MMTIAL / IJN: [id number] /
[2017-10-15 11:59] LABS: Glucose,Whole Blood 141 mg/dL (75-99)
--- NOTE | 2017-10-15 12:17 | P.CRDCN ---
History of Present Illness Consult date: 10/15/17 History of present illness: Mr. Montilla is a pleasant 72-year-old male past medical history significant for persistent atrial fibrillation on long-term anticoagulation with Coumadin, dyslipidemia, hypertension, sleep apnea, former tobacco use. We' ve been asked to see him in consultation for symptoms of shortness of breath. He follows with Dr. Dominguez in the office. He states last week he was diagnosed by his primary care doctor with pneumonia and given oral antibiotics. He seems to be doing better and thought he was recovering fine until about Thursday he started with some shortness of breath. The shortness of breath was worse with exertion and he felt generally exhausted so he presented to his PCP for evaluation and was sent in to the hospital. Upon arrival he was found to have an elevated white count as well as pneumonia on chest x-ray he was also given IV Lasix to diurese him as well as his Coumadin has been on hold for supratherapeutic INR. He is currently receiving oral Zithromax, IV Rocephin and oral Lasix. EKG on arrival reveals atrial fibrillation with left axis deviation and PVCs. Chest x-ray reveals extensive pulmonary interstitial infiltrates could be related to pulmonary fibrosis or heart failure. More likely interstitial pneumonia in view of lack of pleural fluid cardiomegaly. Echocardiogram on admission reveals preserved left ventricular systolic function with ejection fraction 55-60%, mildly enlarged right ventricle, severely dilated left atrium, mild aortic valve sclerosis, moderate pulmonary hypertension with an RVSP of 48.22 mmHg. Laboratory data reviewed, WBC 15.9 down from 17.4 on admission, hemoglobin 13.0 , platelets 145, INR 5.8, potassium 4.2, proBNP 1880, creatinine 1.07 and cardiac enzymes negative 3. He underwent right heart catheterization in February of 2017 which revealed no evidence of pulmonary hypertension. Current cardiac medications include Coumadin, Aldactone 25 mg daily, sildenafil 20 mg 3 times a day, pravastatin 20 mg daily, potassium supplementation 10 daily , Lopressor 50 mg 3 times a day, Lasix 40 mg daily, Cardura 8 mg daily and benazepril 20 mg daily. Review of Systems At the time my exam: CONSTITUTIONAL: Denies fever. Denies chills. EYES: Denies blurred vision. Denies vision changes. Denies eye pain. EARS, NOSE, MOUTH & THROAT: Denies headache. Denies sore throat. Denies ear pain. CARDIOVASCULAR: Denies chest pain. Complains of shortness of breath but improvement since admission. Denies orthopnea. Denies PND. Denies palpitations. RESPIRATORY: Denies cough. GASTROINTESTINAL: Denies abdominal pain. Denies diarrhea. Denies constipation. Denies nausea. Denies vomiting. MUSCULOSKELETAL: Denies myalgias. INTEGUMENTARY: Denies pruitis. Denies rash. NEUROLOGIC: Denies numbness. Denies tingling. Denies weakness. PSYCHIATRIC: Denies anxiety. Denies depression. ENDOCRINE: Denies fatigue. Denies weight change. Denies polydipsia. Denies polyurina. GENITOURINARY: Denies burning, hematuria or urgency with micturation. HEMATOLOGIC: Denies history of anemia. Denies bleeding. Past Medical History Past Medical History: Atrial Fibrillation, Hyperlipidemia, Hypertension, Sleep Apnea/CPAP/BIPAP Additional Past Medical History / Comment(s): Gout, benign prostatic hypertrophy , chronic low back pain, generalized osteoarthritis, obstructive sleep apnea and was unable to tolerate CPAP machine, borderline diabetes. PULMONARY EDEMA History of Any Multi-Drug Resistant Organisms: None Reported Past Surgical History: Cholecystectomy, Joint Replacement Additional Past Surgical History / Comment(s): Right total knee arthroplasty with Dr. Quan, ventral hernia repair Past Anesthesia/Blood Transfusion Reactions: No Reported Reaction Past Psychological History: No Psychological Hx Reported Smoking Status: Former smoker Past Alcohol Use History: Occasional Additional Past Alcohol Use History / Comment(s): She was a smoker of one pack per day for 10 years and quit 40 years ago. He denies any medical marijuana, marijuana or street drug use. He does drink alcohol 3-4 beers every day for 10- 15 years. He is and lives at home with his . Past Drug Use History: None Reported - Past Family History Father Family Medical History: No Reported History Additional Family Medical History / Comment(s): Dad at age 89 from stroke. Mother Family Medical History: No Reported History Additional Family Medical History / Comment(s): Mother is alive at age 90 with dementia. Sister(s) Additional Family Medical History / Comment(s): Patient has 2 sisters with no major medical problems. Patient does not have any brothers. Patient has 2 adult children with no major medical problems. Medications and Allergies Home Medications Medication Instructions Recorded Confirmed Type Allopurinol [Zyloprim] 100 mg PO HS 12/10/15 10/13/17 History Potassium Chloride [Klor-Con 10] 10 meq PO HS 12/10/15 10/13/17 History Pravastatin Sodium [Pravachol] 20 mg PO HS 12/10/15 10/13/17 History Spironolactone [Aldactone] 25 mg PO DAILY 12/10/15 10/13/17 History Benazepril HCl [Lotensin] 20 mg PO DAILY 09/27/16 10/13/17 History Colchicine [Colcrys] 0.6 mg PO BID 09/27/16 10/13/17 History Doxazosin Mesylate [Cardura] 8 mg PO HS 09/27/16 10/13/17 History Sildenafil [Revatio] 20 mg PO TID #90 tab 10/01/16 10/13/17 Rx Metoprolol Tartrate [Lopressor] 50 mg PO TID 02/19/17 10/13/17 History Amoxicillin/Potassium Clav 1 tab PO Q12HR #28 tab 10/15/17 Rx [Augmentin 875-125 Tablet] Famotidine [Pepcid] 20 mg PO BID #30 tab 10/15/17 Rx Furosemide [Lasix] 40 mg PO BID@0900,1600 #60 tab 10/15/17 Rx Ipratropium-Albuterol Nebulize 3 ml INHALATION RT-QID PRN #120 10/15/17 Rx [Duoneb 0.5 mg-3 mg/3 ml Soln] ampul.neb guaiFENesin [Mucinex] 600 mg PO Q12HR tablet.er 10/15/17 Rx predniSONE 40 mg PO DAILY #10 tab 10/15/17 Rx Allergies Allergy/AdvReac Type Severity Reaction Status Date / Time No Known Allergies Allergy Verified 10/13/17 17:54 Physical Exam Vitals: Vital Signs Temp Pulse Pulse Resp BP Pulse Ox 10/15/17 08:42 102 H 10/15/17 08:30 102 H 10/15/17 06:10 98.0 F 107 H 18 121/78 92 L 10/15/17 00:00 18 10/14/17 23:00 97.2 F L 103 H 18 106/56 94 L 10/14/17 20:35 102 H 10/14/17 20:18 100 03/28/18 15:00 96.8 F L 109 H 18 130/74 92 L Intake and Output 10/14/17 10/15/17 10/15/17 22:59 06:59 14:59 Output Total 200 Balance -200 Output: Urine 200 Other: Voiding Method Toilet # Voids 1 Weight 167.5 kg Blood pressure 121/78 heart rate 102 afebrile maintaining oxygen saturation on 2 liters nasal cannula. GENERAL: This is a 72-year-old male in no apparent distress at the time of my examination. Obese. HEENT: Head is atraumatic, normocephalic. Pupils are equal, round. Sclerae anicteric. Conjunctivae are clear. Mucous membranes of the mouth are moist. Neck is supple. There is no jugular venous distention. No carotid bruit is heard. LUNGS: Course rhonchi with bibasilar rales, no wheezing. No chest wall tenderness is noted on palpation or with deep breathing. HEART: Irregular rate and rhythm with systolic ejection murmur at the base, no rubs or gallops. S1 and S2 heard. ABDOMEN: Soft, nontender. Bowel sounds are heard. No organomegaly noted. EXTREMITIES: Discoloration noted bilaterally. No evidence of peripheral edema and no calf tenderness noted. VASCULAR: Radial and dorsalis pedis pulses palpated, no evidence of clubbing. NEUROLOGIC: Patient is awake, alert and oriented x3. Results 10/15/17 09:28 10/13/17 16:28 Cardiac Enzymes 10/14/17 Range/Units 16:42 Troponin I <0.012 (0.000-0.034) ng/mL CBC 10/15/17 Range/Units 09:28 WBC 15.9 H (3.8-10.6) k/uL RBC 4.52 (4.30-5.90) m/uL Hgb 13.0 (13.0-17.5) gm/dL Hct 39.3 (39.0-53.0) % Plt Count 145 L (150-450) k/uL Current Medications Generic Name Dose Route Start Last Admin Trade Name Freq PRN Reason Stop Dose Admin Albuterol/Ipratropium 3 ml 10/13/17 18:18 10/15/17 08:29 Duoneb 0.5 Mg-3 Mg/3 Ml Soln INHALATION 3 ml RT-Q4H PRN Administration Shortness Of Breath Or Wheezing Allopurinol 100 mg 10/13/17 21:00 10/14/17 21:15 Zyloprim PO 100 mg HS ROGER Administration Azithromycin 500 mg 10/16/17 09:00 Zithromax PO DAILY ROGER Budesonide 0.5 mg 10/14/17 20:00 10/15/17 08:29 Pulmicort INHALATION 0.5 mg RT-BID ROGER Administration Ceftriaxone Sodium 1,000 mg 10/14/17 00:00 10/15/17 07:32 Rocephin IVP 1,000 mg Q12HR ROGER Administration Colchicine 0.6 mg 10/13/17 21:00 10/15/17 07:33 Colcrys PO 0.6 mg BID ROGER Administration Doxazosin Mesylate 8 mg 10/13/17 21:00 10/14/17 21:15 Cardura PO 8 mg HS ROGER Administration Enoxaparin Sodium 40 mg 10/14/17 16:00 10/14/17 16:54 Lovenox SQ Not Given DAILY ROGER Famotidine 20 mg 10/14/17 21:00 10/15/17 07:33 Pepcid PO 20 mg BID ROGER Administration Furosemide 40 mg 10/14/17 16:00 10/15/17 07:33 Lasix PO 40 mg BID@0900,1600 ROGER Administration Guaifenesin 600 mg 10/14/17 21:00 10/15/17 07:33 Mucinex PO 600 mg Q12HR ROGER Administration Sodium Chloride 1,000 mls @ 10 mls/hr 10/13/17 18:30 10/14/17 18:08 Saline 0.9% IV 10 mls/hr .Q24H ROGER Administration Insulin Aspart 0 unit 10/14/17 17:30 10/15/17 07:32 Novolog SQ 3 unit ACHS ROGER Administration Protocol Lisinopril 20 mg 10/14/17 09:00 10/15/17 07:33 Zestril PO 20 mg DAILY ROEGR Administration Methylprednisolone Sodium Succinate 40 mg 10/14/17 16:00 10/15/17 07:32 Solu-Medrol IV 40 mg Q8HR ROGER Administration Metoprolol Tartrate 50 mg 10/13/17 22:00 10/15/17 07:33 Lopressor PO 50 mg TID ROGER Administration Potassium Chloride 10 meq 10/13/17 21:00 10/14/17 21:15 K-Dur 10 PO 10 meq HS ROGER Administration Pravastatin Sodium 20 mg 10/13/17 21:00 10/14/17 21:15 Pravachol PO 20 mg HS ROGER Administration Sildenafil Citrate 20 mg 10/13/17 22:00 10/15/17 07:33 Revatio PO 20 mg TID ROGER Administration Spironolactone 25 mg 10/14/17 09:00 10/15/17 07:33 Aldactone PO 25 mg DAILY ROGER Administration Intake and Output 10/14/17 10/15/17 10/15/17 22:59 06:59 14:59 Output Total 200 Balance -200 Output: Urine 200 Other: Voiding Method Toilet # Voids 1 Weight 167.5 kg 10/15/17 09:28 10/13/17 16:28 Assessment and Plan Assessment: ASSESSMENT 1. Acute hypoxic respiratory failure secondary to pneumonia. 2. 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 Mild exacerbation of diastolic heart failure 4. Supratherapeutic INR 5. Dyslipidemia 6. Hypertension 7. Diabetes mellitus 8. History of pulmonary hypertension with recent normal right heart cath. PLAN Continue with medical management of pneumonia. Continue with oral lasix and aldactone. Continue to hold coumadin until INR becomes therapeutic. We will continue to follow, thank you for this consultation. Nurse Practitioner note has been reviewed, I agree with a documented findings and plan of care. Patient was seen and examined.
[2017-10-15 13:02] LABS: Albumin 3.3 g/dL (3.5-5.0); Calcium 9.3 mg/dL (8.4-10.2); Total Bilirubin 0.3 mg/dL (0.2-1.3); Total Protein 5.9 g/dL (6.3-8.2)
[2017-10-15] MEDS: PIPERACILLIN-TAZOBACTAM 3.375 GM in DEXTROSE/WATER 1 50ML.BAG IVPB SCH ×2 (13:30→21:55)
--- NOTE | 2017-10-15 15:59 | P.PN ---
Subjective Progress Note Date: 10/15/17 64-year-old male patient of Dr. Grissom and Dr. Dominguez with known medical history of hypertension, hyperlipidemia and benign prostatic hypertrophy , chronic back pain, gout, osteoarthritis and borderline diabetes chronic atrial fibrillation, pulmnary hpertension , history of obstructive sleep apnea but unable to tolerate CPAP but currently not feeling CPAP at home. presents with shortness of breath for a couple of days worsening with activity. He saw Dr. Grissom. Doxycycline for 7 days. Patient finished his treatment on Thursday with worsening of symptoms after completion of the treatment therefore decided to come to the ER. He does have significant infiltrate on the chest x-ray concerning for interstitial pneumonia. BNP was elevated concerning for acute diastolic heart failure. Continue patient on Lasix IV twice a day along with antibiotic in the form of ceftriaxone and azithromycin. Sputum culture will be collected. Mycoplasma and Legionella will be checked. 10/15: Patient was anxious to be discharged home but he ambulated and pulse ox dropped to 86%. He is willing to stay another night. Repeat chest x-ray ordered that shows continued interstitial infiltrates, slight improvement in aeration in the upper to mid lungs. No significant effusion. INR is at 5.8 and 5 mg of vitamin K given. Patient is followed by pulmonary medicine, Dr. Wilson/Dr. JEFRY Mario. Patient is to continue Revatio 20 mg 3 times daily for mild pulmonary hypertension per Dr. Desir. Patient has been seen by cardiology with recommendations to continue oral Lasix and Aldactone. Echocardiogram reveals EF of 55-60% with mild concentric left hypertrophy, LA severely dilated at greater than 40, mild tricuspid regurgitation, moderate pulmonary hypertension aortic root is dilated at 4.2 cm. Objective - Vital Signs Vital signs: Vital Signs Temp 98.0 F 10/15/17 06:10 Pulse 102 H 10/15/17 08:42 Resp 18 10/15/17 06:10 BP 121/78 10/15/17 06:10 Pulse Ox 92 L 10/15/17 06:10 Intake & Output 10/14/17 10/15/17 10/15/17 18:59 06:59 18:59 Intake Total 1000 Output Total 200 Balance 1000 -200 Weight 167.5 kg Intake: Intake, IV Titration 800 Amount Sodium Chloride 0.9% 1, 800 000 ml @ 10 mls/hr IV . Q24H [facility] Rx#:[id number] Oral 200 Output: Urine 200 Other: Voiding Method Toilet Toilet # Voids 1 - Exam General appearance: cooperative, no acute distress, obese, lying comfortably in bed on 2 L of oxygen - EENT Eyes: anicteric sclerae, PERRLA, normal appearance ENT: hearing grossly normal - Neck Neck: no lymphadenopathy, normal ROM, no other, no rigidity, no stridor, no thyromegaly - Respiratory Respiratory: bilateral crackles and diffuse wheezing - Cardiovascular Rhythm: regular Heart sounds: normal: S1, S2 Abnormal Heart Sounds: no systolic murmur, no diastolic murmur, no rub, no S3 Gallop, no S4 Gallop, no click, no other - Gastrointestinal General gastrointestinal: normal bowel sounds, soft, nontender - Integumentary Integumentary: no rash - Neurologic Neurologic: CNII-XII intact - Musculoskeletal Musculoskeletal: gait normal, strength equal bilaterally - Psychiatric Psychiatric: A&O x's 3, appropriate affect - Labs CBC & Chem 7: 10/15/17 09:28 10/15/17 09:28 Labs: Abnormal Lab Results - Last 24 Hours (Table) 10/14/17 10/14/17 10/14/17 Range/Units 11:52 17:38 20:37 WBC (3.8-10.6) k/uL Plt Count (150-450) k/uL Neutrophils # (1.3-7.7) k/uL Lymphocytes # (1.0-4.8) k/uL PT (9.0-12.0) sec INR (<1.2) APTT (22.0-30.0) sec POC Glucose (mg/dL) 195 H 189 H 148 H (75-99) mg/dL 10/15/17 10/15/17 10/15/17 Range/Units 06:53 09:28 09:28 WBC 15.9 H (3.8-10.6) k/uL Plt Count 145 L (150-450) k/uL Neutrophils # 15.0 H (1.3-7.7) k/uL Lymphocytes # 0.4 L (1.0-4.8) k/uL PT 52.7 H (9.0-12.0) sec INR 5.8 H* (<1.2) APTT 40.2 H (22.0-30.0) sec POC Glucose (mg/dL) 160 H (75-99) mg/dL Microbiology - Last 24 Hours (Table) 10/13/17 18:01 Blood Culture - Preliminary Blood No Growth after 24 hours 10/14/17 05:30 Gram Stain - Preliminary Sputum Assessment and Plan Plan: 1. Acute hypoxic respiratory failure secondary to interstitial pneumonia, acute diastolic heart failure. Continue O2 to maintain a pulse ox equal to or greater than 92%. Consult with pulmonary medicine and cardiology. Continue on ceftriaxone and azithromycin for the pneumonia. Mycoplasma, Legionella ordered. Continue Lasix 40 mg po twice a day for diuresis. Continue Solu- Medrol 40 IV every 8 for wheezing 2. Atrial fibrillation with rapid ventricular response with history of chronic atrial fibrillation. Hold Coumadin was supratherapeutic INR . Metoprolol resumed. Continue to monitor INR. Cardiology and pulmonary medicine consult. 3. Supratherapeutic INR on Coumadin. Hold Coumadin. PT/INR ordered. Vitamin K ordered 4. Hypertension. Continue benazepril 20 mg daily and Lopressor 50 mg twice daily, Aldactone 25 mg daily. 5. Acute on chronic diastolic heart failure. Echocardiogram as above. Continue Lasix 40 mg po every 12 hours and Aldactone 25 mg daily. INR monitoring. Daily weight 6. Benign prostatic hypertrophy. Continue Cardura. 7. Hyperlipidemia. Continue Pravachol. 8. Gout unspecified. Continue colchicine and allopurinol. 9. Chronic low back pain and generalized osteoarthritis, stable. 10. Borderline diabetes. Humalog scale 11. Mild to moderate pulmonary hypertension. Continue Revatio at current dose. 12. DVT prophylaxis. INR supratherapeutic 12. Gastrointestinal prophylaxis. Pepcid 20 mg by mouth twice a day Discharge plan: home tomorrow Impression and plan of care have been directed as dictated by the signing physician. Linda Maloney nurse practitioner acting as scribe for signing physician.
--- NOTE | 2017-10-15 16:53 | CDI ---
Last Revision, June 2017 Documentation Clarification Form Date: 10/15/18 From: Lizzette Gamez RN, CCDS Admit Date: 10/13/2017 7:08:00 PM Patient Name: Sung Montilla Visit Number: [id number] Discharge Date: ATTENTION: The Clinical Documentation Specialists (CDI) and [facility] Coding Staff appreciate your assistance in clarifying documentation. Please respond to the clarification below the line at the bottom and electronically sign. The CDI & [facility] Coding staff will review the response and follow-up if needed. Please note: Queries are made part of the Legal Health Record. If you have any questions, please contact the author of this message via ITS. Dr. Cande Low 10/13/17 Emergency department evaluation: Has sepsis, failure of outpatient treatment interstitial pneumonia Patient meets sepsis criteria. History/Risk Factors: Chronic persistent atrial fibrillation, Hypertension, Former smoker Clinical Indicators: Complaints of cough and shortness of breath. Patient was treated for pneumonia and finished his antibiotics. He denies fevers. Lungs clear to auscultations, respirations are non-labored. WBC/Left Shift: 17.4 Chest x-ray: interstitial pneumonia Lactic acid: 1.5 Blood cultures: Pending, Vitals signs on admission: 107/64 105 24 97.8 93 %, Other Clinical Indicators: 10/14/17 Pulmonary consult (Dr. Wilson) 3/4 SIRS, Sepsis, ac hypoxemia, Community acquired pneumonia. Treatment: Incentive spirometery and pulmonary hygiene Maintain O2 nate's > 88 % , Bronchodilators, Steroid taper Antibiotics: Azithromycin and Rocephin Sputum culture In your professional opinion, please clarify if these findings signify one of the following conditions, whether the condition is POA, and cause, if known: Condition Sepsis ruled out Sepsis Severe Sepsis Other, please specify Unable to determine Present on Admission: Yes No Identify the (suspected) organism SIRS Criteria..2 or more of the following may indicate SIRS: Temperature < 96.8F (36C) or > 101.0F (38.3C) Heart Rate > 90 bpm Respiratory Rate > 20 breaths/min or PaCO2 < 32 mmHg White Blood Cell Count > 12,000 or < 4,000 cells/mm3 or > 10% bands Lactate >2.0 mmol/L (>4.0 is equivalent to septic shock) Please continue to document in your progress notes and discharge summary in order to capture severity of illness and risk of mortality. Include clinical findings that support your diagnosis. Sepsis , present on admission MTDD
[2017-10-15 17:21] LABS: Glucose,Whole Blood 115 mg/dL (75-99)
[2017-10-15 21:07] LABS: Glucose,Whole Blood 135 mg/dL (75-99)
[2017-10-15] MEDS: ALLOPURINOL 100 MG TAB PO SCH (21:50)
[2017-10-15] MEDS: DOXAZOSIN 4 MG TAB PO SCH (21:51)
[2017-10-15] MEDS: PRAVASTATIN SODIUM 20 MG TAB PO SCH (21:51)
[2017-10-15] MEDS: POTASSIUM CHLORIDE ER 10 MEQ TAB.ER.PRT PO SCH (21:51)
[2017-10-15] MEDS: SODIUM CHLORIDE 0.9% 1,000 ML IV SCH (21:52)
[2017-10-15 23:27] VITALS: RESP 18; TEMP 96.9
[2017-10-16] MEDS: methylPREDNISolone SOD SUCCI 40 MG/ML 1 ML VIAL IV SCH ×2 (00:49→08:10)
[2017-10-16 06:12] VITALS: BP 139/88
[2017-10-16] MEDS: PIPERACILLIN-TAZOBACTAM 3.375 GM in DEXTROSE/WATER 1 50ML.BAG IVPB SCH (06:23)
[2017-10-16 06:49] LABS: Mycoplasma IgM Antibody 0.31 INDEX (<=0.90)
[2017-10-16] MEDS: BUDESONIDE 0.5 MG/2 ML NEBU INHALATION SCH (06:58)
[2017-10-16] MEDS: IPRATROPIUM-ALBUTEROL 3 ML NEB INHALATION PRN ×2 (06:58→10:47)
[2017-10-16 07:17] LABS: Glucose,Whole Blood 150 mg/dL (75-99)
[2017-10-16] MEDS: INSULIN ASPART 100 UNIT/ML 1 ML 10 ML VIAL SQ SCH (08:10)
[2017-10-16] MEDS: SILDENAFIL 20 MG TAB PO SCH (08:11)
[2017-10-16] MEDS: FUROSEMIDE 40 MG TAB PO SCH (08:11)
[2017-10-16] MEDS: COLCHICINE 0.6 MG EACH PO SCH (08:12)
[2017-10-16] MEDS: FAMOTIDINE 20 MG TAB PO SCH (08:12)
[2017-10-16] MEDS: guaiFENesin 600 MG TABLET.ER PO SCH (08:12)
[2017-10-16] MEDS: SPIRONOLACTONE 25 MG TAB PO SCH (08:12)
[2017-10-16] MEDS: METOPROLOL TARTRATE 50 MG TAB PO SCH (08:13)
[2017-10-16] MEDS: LISINOPRIL 20 MG TAB PO SCH (08:14)
[2017-10-16] MEDS ORDERED: AZITHROMYCIN 500 MG TAB PO SCH (09:00)
[2017-10-16] MEDS ORDERED: METOPROLOL TARTRATE 50 MG TAB PO STA (09:16)
--- NOTE | 2017-10-16 09:42 | P.PN ---
Subjective Progress Note Date: 10/16/17 HPI: This is a 72-year-old gentleman who presented to the emergency department complaining of cough and shortness of breath. The patient states he was treated for pneumonia as an outpatient with doxycycline. He states he took about 10 days of doxycycline and was starting to feel better. However he completed the course on Thursday and after that started to feel worse again. He is complaining of cough productive of green-brown phlegm. He denies fevers and chills. The patient is known to our pulmonary office. He is following with Dr. Rm for pulmonary hypertension. The patient did have a right heart cath which showed no evidence of pulmonary hypertension. The patient was supposed to do a CPAP re-titration study however he states he was intolerant of the CPAP and he never followed up. He refuses adamantly to use a CPAP. 10/15/17- Please see Dr. Marvin De Santiago note 10/16/17- patient is being seen and examined and evaluated today on rounds. He is resting up in bed on 2 L of supplemental oxygen via nasal cannula. He feels his breathing is back to baseline. His morning labs are currently pending. He is afebrile no further complaints. States he is hoping for possible discharge today. Objective - Vital Signs Vital signs: Vital Signs Temp 96.9 F L 10/16/17 06:12 Pulse 92 10/16/17 07:15 Resp 18 10/16/17 06:12 BP 139/88 10/16/17 06:12 Pulse Ox 95 10/16/17 06:12 Intake & Output 10/15/17 10/16/17 10/16/17 18:59 06:59 18:59 Intake Total 1200 120 Output Total 200 Balance 1200 -200 120 Weight 166.5 kg Intake: Oral 1200 120 Output: Urine 200 Other: Voiding Method Toilet # Voids 2 2 - Exam Gen.: Patient is alert and oriented 3, no acute distress, morbidly obese Cardiovascular: Regular rate and rhythm, S1/S2 Lungs: Lungs clear to auscultation, faint expiratory wheeze. Abdomen: Soft nontender nondistended positive bowel sounds Extremities: 1-2+ pitting edema with chronic venous stasis. - Labs CBC & Chem 7: 10/15/17 09:28 10/15/17 09:28 Labs: Abnormal Lab Results - Last 24 Hours (Table) 10/15/17 10/15/17 10/15/17 Range/Units 09:28 09:28 09:28 WBC 15.9 H (3.8-10.6) k/uL Plt Count 145 L (150-450) k/uL Neutrophils # 15.0 H (1.3-7.7) k/uL Lymphocytes # 0.4 L (1.0-4.8) k/uL PT 52.7 H (9.0-12.0) sec INR 5.8 H* (<1.2) APTT 40.2 H (22.0-30.0) sec Sodium 146 H (137-145) mmol/L Chloride 109 H (98-107) mmol/L BUN 24 H (9-20) mg/dL Glucose 203 H (74-99) mg/dL POC Glucose (mg/dL) (75-99) mg/dL Total Protein 5.9 L (6.3-8.2) g/dL Albumin 3.3 L (3.5-5.0) g/dL 10/15/17 10/15/17 10/15/17 Range/Units 11:56 17:18 21:04 WBC (3.8-10.6) k/uL Plt Count (150-450) k/uL Neutrophils # (1.3-7.7) k/uL Lymphocytes # (1.0-4.8) k/uL PT (9.0-12.0) sec INR (<1.2) APTT (22.0-30.0) sec Sodium (137-145) mmol/L Chloride (98-107) mmol/L BUN (9-20) mg/dL Glucose (74-99) mg/dL POC Glucose (mg/dL) 141 H 115 H 135 H (75-99) mg/dL Total Protein (6.3-8.2) g/dL Albumin (3.5-5.0) g/dL 10/16/17 Range/Units 06:52 WBC (3.8-10.6) k/uL Plt Count (150-450) k/uL Neutrophils # (1.3-7.7) k/uL Lymphocytes # (1.0-4.8) k/uL PT (9.0-12.0) sec INR (<1.2) APTT (22.0-30.0) sec Sodium (137-145) mmol/L Chloride (98-107) mmol/L BUN (9-20) mg/dL Glucose (74-99) mg/dL POC Glucose (mg/dL) 150 H (75-99) mg/dL Total Protein (6.3-8.2) g/dL Albumin (3.5-5.0) g/dL Microbiology - Last 24 Hours (Table) 10/13/17 18:01 Blood Culture - Preliminary Blood No Growth after 48 hours Assessment and Plan Assessment: 09/20 SIRS, sepsis Acute hypoxemia Community acquired pneumonia AECHF with elevated BNP, diastolic Supratherapeutic coumadin coagulapathy Probably underlying pulmonary edema Super morbid obesity Obstructive sleep apnea, patient noncompliant with CPAP Hypertension Dyslipidemia BPH Chronic back pain Gout Osteoarthritis Diabetes mellitus type 2 Patient is cleared from pulmonary standpoint for discharge O2 to maintain saturation greater than or equal to 88% Bronchodilators Gentle diuresis Antibiotics: Azithromycin and Rocephin Hold Coumadin until INR at goal of 2-3 Steroid switched to oral Sputum culture, Blood cultures pending Cpntinue Lasix BID for now Serial chest x-rays GI and DVT prophylaxis Incentive spirometry and pulmonary hygiene continued sildenafil per recommendations from Dr. Desir, PH specialist We will continue to follow along. I performed an examination of the patient and discussed their management with the nurse practitioner. I have reviewed the nurse practitioner's note and agree with the documented findings and plan of care.
[2017-10-16] MEDS ORDERED: predniSONE 20 MG TAB PO SCH (09:45)
[2017-10-16 10:48] LABS: Basophils % (A) 0 %; Eosinophils % (A) 0 %; HCT 40.5 % (39.0-53.0); Lymphocytes # (A) 0.3 k/uL (1.0-4.8); Lymphocytes % (A) 2 %; MCH 28.5 pg (25.0-35.0); MCHC 32.2 g/dL (31.0-37.0); MCV 88.7 fL (80.0-100.0); Mean Platelet Volume 6.7; Monocytes # (A) 0.5 k/uL (0-1.0); Monocytes % (A) 4 %; Neutrophils # (A) 12.7 k/uL (1.3-7.7); Neutrophils % (A) 94 %; Platelet Count 159 k/uL (150-450); RBC 4.56 m/uL (4.30-5.90); RDW 13.3 % (11.5-15.5); WBC 13.6 k/uL (3.8-10.6)
[2017-10-16 10:53] LABS: Partial Thromboplastin Time 26.7 sec (22.0-30.0)
[2017-10-16 11:03] VITALS: PULSE 87
[2017-10-16 11:31] LABS: Albumin 3.3 g/dL (3.5-5.0); Calcium 9.2 mg/dL (8.4-10.2); Potassium 4.3 mmol/L (3.5-5.1); Total Bilirubin 0.6 mg/dL (0.2-1.3)
--- NOTE | 2017-10-16 15:01 | P.DS ---
<Linda Maloney A - Last Filed: 10/16/17 14:58> Providers Date of admission: 10/13/17 19:08 Expected date of discharge: 10/16/17 Attending physician: Cande Low Consults: 10/14/17 09:29 Consult Physician Routine Consulting Provider: Joyce Wilson Consult Reason/Comments: pneumonia, failed outpt treatment Do you want consulting provider notified?: Yes 10/14/17 12:42 Consult Physician Routine Consulting Provider: Chelsi Mario Consult Reason/Comments: diastolic heart failure Do you want consulting provider notified?: Yes Primary care physician: [facility] Course: 64-year-old male patient of Dr. Grissom and Dr. Dominguez with known medical history of hypertension, hyperlipidemia and benign prostatic hypertrophy , chronic back pain, gout, osteoarthritis and borderline diabetes chronic atrial fibrillation, pulmnary hpertension , history of obstructive sleep apnea but unable to tolerate CPAP but currently not feeling CPAP at home. presents with shortness of breath for a couple of days worsening with activity. He saw Dr. Grissom. Doxycycline for 7 days. Patient finished his treatment on Thursday with worsening of symptoms after completion of the treatment therefore decided to come to the ER. He does have significant infiltrate on the chest x-ray concerning for interstitial pneumonia. BNP was elevated concerning for acute diastolic heart failure. Continue patient on Lasix IV twice a day along with antibiotic in the form of ceftriaxone and azithromycin. Sputum culture will be collected. Mycoplasma and Legionella will be checked. 10/15: Patient was anxious to be discharged home but he ambulated and pulse ox dropped to 86%. He is willing to stay another night. Repeat chest x-ray ordered that shows continued interstitial infiltrates, slight improvement in aeration in the upper to mid lungs. No significant effusion. INR is at 5.8 and 5 mg of vitamin K given. Patient is followed by pulmonary medicine, Dr. Wilson/Dr. JEFRY Mario. Patient is to continue Revatio 20 mg 3 times daily for mild pulmonary hypertension per Dr. Desir. Patient has been seen by cardiology with recommendations to continue oral Lasix and Aldactone. Echocardiogram reveals EF of 55-60% with mild concentric left hypertrophy, LA severely dilated at greater than 40, mild tricuspid regurgitation, moderate pulmonary hypertension aortic root is dilated at 4.2 cm. 10/16: Pulse ox is 95% on room air. Patient ambulated in the hallway and was 95- 96% on room air. Repeat INR today is at 2. Patient will be discharged home today. He has been cleared by Dr. Wilson. He is to have a repeat INR on Thursday. Patient will be resumed back on his home dose of Coumadin. Discharge diagnoses: 1. Acute hypoxic respiratory failure secondary to interstitial pneumonia and sepsis, acute diastolic heart failure. 2. Atrial fibrillation with rapid ventricular response with history of chronic atrial fibrillation. 3. Supratherapeutic INR on Coumadin. 4. Hypertension. 5. Acute on chronic diastolic heart failure. 6. Benign prostatic hypertrophy. 7. Hyperlipidemia. 8. Gout unspecified. 9. Chronic low back pain and generalized osteoarthritis, stable. 10. Borderline diabetes. 11. Mild to moderate pulmonary hypertension. Discharge plan: home Impression and plan of care have been directed as dictated by the signing physician. Linda Maloney nurse practitioner acting as scribe for signing physician. Patient Condition at Discharge: Good Plan - Discharge Summary Discharge Rx Participant: No New Discharge Prescriptions: New Famotidine [Pepcid] 20 mg PO BID #30 tab Furosemide [Lasix] 40 mg PO BID@0900,1600 #60 tab guaiFENesin [Mucinex] 600 mg PO Q12HR tablet.er predniSONE 40 mg PO DAILY #10 tab Amoxic-Pot Clav 875-125Mg [Augmentin 875-125] 1 tab PO Q12HR #14 tablet Metoprolol Tartrate [Lopressor] 100 mg PO BID #120 tab Warfarin Sodium [Coumadin] 5 mg PO DAILY #1 tablet Albuterol Inhaler [Ventolin Hfa Inhaler] 2 puff INHALATION Q6HR PRN #1 inhaler PRN Reason: Shortness Of Breath Continue Spironolactone [Aldactone] 25 mg PO DAILY Pravastatin Sodium [Pravachol] 20 mg PO HS Allopurinol [Zyloprim] 100 mg PO HS Potassium Chloride [Klor-Con 10] 10 meq PO HS Colchicine [Colcrys] 0.6 mg PO BID Benazepril HCl [Lotensin] 20 mg PO DAILY Doxazosin Mesylate [Cardura] 8 mg PO HS Sildenafil [Revatio] 20 mg PO TID #90 tab Discontinued Metoprolol Tartrate [Lopressor] 50 mg PO TID Furosemide [Lasix] 40 mg PO DAILY Warfarin [Coumadin] 7.5 mg PO SUMOTUWETHSA Warfarin [Coumadin] 5 mg PO FR Discharge Medication List Allopurinol [Zyloprim] 100 mg PO HS 12/10/15 [History] Potassium Chloride [Klor-Con 10] 10 meq PO HS 12/10/15 [History] Pravastatin Sodium [Pravachol] 20 mg PO HS 12/10/15 [History] Spironolactone [Aldactone] 25 mg PO DAILY 12/10/15 [History] Benazepril HCl [Lotensin] 20 mg PO DAILY 09/27/16 [History] Colchicine [Colcrys] 0.6 mg PO BID 09/27/16 [History] Doxazosin Mesylate [Cardura] 8 mg PO HS 09/27/16 [History] Sildenafil [Revatio] 20 mg PO TID #90 tab 10/01/16 [Rx] Famotidine [Pepcid] 20 mg PO BID #30 tab 10/15/17 [Rx] Furosemide [Lasix] 40 mg PO BID@0900,1600 #60 tab 10/15/17 [Rx] guaiFENesin [Mucinex] 600 mg PO Q12HR tablet.er 10/15/17 [Rx] predniSONE 40 mg PO DAILY #10 tab 10/15/17 [Rx] Albuterol Inhaler [Ventolin Hfa Inhaler] 2 puff INHALATION Q6HR PRN #1 inhaler 10/16/17 [Rx] Amoxic-Pot Clav 875-125Mg [Augmentin 875-125] 1 tab PO Q12HR #14 tablet [Rx] Metoprolol Tartrate [Lopressor] 100 mg PO BID #120 tab 10/16/17 [Rx] Warfarin Sodium [Coumadin] 5 mg PO DAILY #1 tablet 10/16/17 [Rx] Follow up Appointment(s)/Referral(s): Gianluca Grissom MD [Primary Care Provider] - 10/22/17 8:30 am (With LIV Amezcua ) Antonio Mario MD [STAFF PHYSICIAN] - 10/23/17 3:00 pm Ambulatory/Diagnostic Orders: Prothrombin Time INR [LAB.AMB] Location: Determined By Patient Patient Instructions/Handouts: Pulmonary Edema (DC) Activity/Diet/Wound Care/Special Instructions: Cardiac diet. Fluid restriction of 1500 ml per day. Activity is limited until follow up with primary care drNena Discharge Disposition: HOME SELF-CARE <Leanne Cortez - Last Filed: 10/17/17 11:06> Hospital Course: Sepsis secondary to CAP
[2017-10-16] MEDS ORDERED: METOPROLOL TARTRATE 50 MG TAB PO SCH (21:00)
== END 2017-10-16 12:22 | disposition home or self-care (01) | DRG 871 ==
LOC: EC 15:36 → 4MS4W 19:08
PROVIDERS: ADMIT Family Medicine; ATTEND Family Medicine
DX: A41.9 Sepsis, unspecified organism (principal); I50.33 Acute on chronic diastolic (congestive) heart failure; J96.01 Acute respiratory failure with hypoxia; J18.9 Pneumonia, unspecified organism; I08.2 Rheumatic disorders of both aortic and tricuspid valves; I27.20 Pulmonary hypertension, unspecified; E66.01 Morbid (severe) obesity due to excess calories; I48.2 Chronic atrial fibrillation; I11.0 Hypertensive heart disease with heart failure; E11.9 Type 2 diabetes mellitus without complications; Z68.43 Body mass index [BMI] 50.0-59.9, adult; E78.5 Hyperlipidemia, unspecified; G47.33 Obstructive sleep apnea (adult) (pediatric); M54.5 Low back pain; I87.2 Venous insufficiency (chronic) (peripheral); G89.29 Other chronic pain; I49.3 Ventricular premature depolarization; J98.01 Acute bronchospasm; M10.9 Gout, unspecified; M15.9 Polyosteoarthritis, unspecified; N40.0 Benign prostatic hyperplasia without lower urinary tract symptoms; R79.1 Abnormal coagulation profile; T45.515A Adverse effect of anticoagulants, initial encounter; Z96.651 Presence of right artificial knee joint; Z91.19 Patient's noncompliance with other medical treatment and regimen; Z79.01 Long term (current) use of anticoagulants; Z79.899 Other long term (current) drug therapy; Z82.3 Family history of stroke; Z87.01 Personal history of pneumonia (recurrent); Z87.891 Personal history of nicotine dependence; Z82.0 Family history of epilepsy and other diseases of the nervous system
CPT/HCPCS: 36415; 71046; 80053; 82550; 82553; 83036; 83605; 83880; 84484; 85025; 85610; 85730; 86738; 87040; 87070; 87205; 87449; 93005; 93306; 94640; 96361; 96365; 96375; 99285

== ENCOUNTER 2017-11-02 09:19 | Inpatient (IN) | payer MEDICARE, BC ==
[2017-11-02] MEDS ORDERED: IPRATROPIUM-ALBUTEROL 3 ML NEB INHALATION STA ×2 (09:42→11:28)
--- NOTE | 2017-11-02 09:44 | ED ---
General Adult HPI - General Chief complaint: Shortness of Breath Stated complaint: pneumonia Time Seen by Provider: 11/02/17 09:33 Source: patient, RN notes reviewed, old records reviewed Mode of arrival: wheelchair Limitations: no limitations - History of Present Illness Initial comments: 72-year-old male history of atrial fibrillation and recent admission for pneumonia presenting with worsening cough and dyspnea. Patient has had a productive cough of avila sputum for the past 4-5 days. He was seen by his primary care physician today and sent in for evaluation. At the office patient was hypoxic in the low 90s, with a heart rate in the 120s. States his cough is been present for approximately one week. Denies any worsening lower extremity edema, does have some mild edema at baseline. No history of COPD or asthma, patient does have remote history of tobacco use, quit approximately 35 years ago but smoked for 15-20 years. - Related Data Home Medications Medication Instructions Recorded Confirmed Allopurinol [Zyloprim] 100 mg PO HS 12/10/15 11/02/17 Potassium Chloride [Klor-Con 10] 10 meq PO HS 12/10/15 11/02/17 Pravastatin Sodium [Pravachol] 20 mg PO HS 12/10/15 11/02/17 Spironolactone [Aldactone] 25 mg PO DAILY 12/10/15 11/02/17 Benazepril HCl [Lotensin] 20 mg PO DAILY 09/27/16 11/02/17 Colchicine [Colcrys] 0.6 mg PO BID 09/27/16 11/02/17 Doxazosin Mesylate [Cardura] 8 mg PO HS 09/27/16 11/02/17 Albuterol Inhaler [Ventolin Hfa 2 puff INHALATION RT-QID PRN 11/02/17 11/02/17 Inhaler] Warfarin Sodium [Coumadin] 5 mg PO FR 11/02/17 11/02/17 Warfarin Sodium [Coumadin] 7.5 mg PO SUMOTUWETHSA 11/02/17 11/02/17 Previous Rx's Medication Instructions Recorded Sildenafil [Revatio] 20 mg PO TID #90 tab 10/01/16 Famotidine [Pepcid] 20 mg PO BID #30 tab 10/15/17 Furosemide [Lasix] 40 mg PO BID@0900,1600 #60 tab 10/15/17 Metoprolol Tartrate [Lopressor] 100 mg PO BID #120 tab 10/16/17 Allergies Allergy/AdvReac Type Severity Reaction Status Date / Time No Known Allergies Allergy Verified 11/02/17 10:41 Review of Systems ROS Statement: Those systems with pertinent positive or pertinent negative responses have been documented in the HPI. ROS Other: All systems not noted in ROS Statement are negative. Past Medical History Past Medical History: Atrial Fibrillation, Hyperlipidemia, Hypertension, Sleep Apnea/CPAP/BIPAP Additional Past Medical History / Comment(s): Gout, benign prostatic hypertrophy , chronic low back pain, generalized osteoarthritis, obstructive sleep apnea and was unable to tolerate CPAP machine, borderline diabetes. PULMONARY EDEMA History of Any Multi-Drug Resistant Organisms: None Reported Past Surgical History: Cholecystectomy, Joint Replacement Additional Past Surgical History / Comment(s): Right total knee arthroplasty with Dr. Quan, ventral hernia repair Past Anesthesia/Blood Transfusion Reactions: No Reported Reaction Past Psychological History: No Psychological Hx Reported Smoking Status: Former smoker Past Alcohol Use History: Occasional Past Drug Use History: None Reported - Past Family History Father Family Medical History: No Reported History Additional Family Medical History / Comment(s): Dad at age 89 from stroke. Mother Family Medical History: No Reported History Additional Family Medical History / Comment(s): Mother is alive at age 90 with dementia. Sister(s) Additional Family Medical History / Comment(s): Patient has 2 sisters with no major medical problems. Patient does not have any brothers. Patient has 2 adult children with no major medical problems. General Exam Limitations: no limitations General appearance: alert, in no apparent distress Head exam: Present: atraumatic, normocephalic Eye exam: Present: normal appearance, PERRL Neck exam: Present: normal inspection Respiratory exam: Present: respiratory distress, wheezes, rales, rhonchi, decreased breath sounds Cardiovascular Exam: Present: tachycardia, irregular rhythm GI/Abdominal exam: Present: soft. Absent: distended, tenderness, guarding Extremities exam: Present: normal inspection, normal capillary refill, pedal edema (trace). Absent: calf tenderness Neurological exam: Present: alert, oriented X3, CN II-XII intact. Absent: motor sensory deficit Psychiatric exam: Present: normal affect, normal mood Skin exam: Present: warm, dry, intact. Absent: cyanosis, diaphoretic Course Vital Signs 11/02/17 11/02/17 11/02/17 09:26 09:55 10:05 Temperature 99 F Pulse Rate 123 H 108 H 96 Respiratory 22 18 Rate Blood Pressure 139/96 O2 Sat by Pulse 81 L Oximetry 11/02/17 11/02/17 11/02/17 10:54 10:56 11:30 Temperature 98.7 F Pulse Rate 105 H 110 H Respiratory 26 H 26 H 30 H Rate Blood Pressure 102/58 109/58 O2 Sat by Pulse 87 L 88 L Oximetry EKG Findings - EKG Comments: EKG Findings:: EKG: Atrial fibrillation with RVR, incomplete right bundle branch block, ventricular rate of 116 QRS duration 108, QTC [address] segment elevation Medical Decision Making - Medical Decision Making 72-year-old male presenting with worsening dyspnea, has had a mild cough. Patient was sent in by primary care physician for evaluation. He is hypoxic and tachycardic. EKG reveals A. fib with rapid ventricular response. Chest x- ray shows cardiomegaly with pulmonary vascular congestion. BNP is elevated at 3000. INR elevated at 4.2, Coumadin will be held. Patient will be admitted for IV diuresis and symptomatically treatment. Diagnosis: Atrial fibrillation with RVR, congestive heart failure Case discussed with Dr. Low who will accept admission, cardiology placed on consult. - Lab Data Result diagrams: 11/02/17 09:43 11/02/17 09:43 Lab Results 11/02/17 11/02/17 11/02/17 Range/Units 09:43 09:43 09:43 WBC 15.2 H (3.8-10.6) k/uL RBC 4.44 (4.30-5.90) m/uL Hgb 12.5 L (13.0-17.5) gm/dL Hct 38.2 L (39.0-53.0) % MCV 86.0 (80.0-100.0) fL MCH 28.2 (25.0-35.0) pg MCHC 32.8 (31.0-37.0) g/dL RDW 13.8 (11.5-15.5) % Plt Count 112 L (150-450) k/uL Neutrophils % 88 % Lymphocytes % 4 % Monocytes % 7 % Eosinophils % 1 % Basophils % 0 % Neutrophils # 13.3 H (1.3-7.7) k/uL Lymphocytes # 0.6 L (1.0-4.8) k/uL Monocytes # 1.0 (0-1.0) k/uL Eosinophils # 0.1 (0-0.7) k/uL Basophils # 0.0 (0-0.2) k/uL PT (9.0-12.0) sec INR (<1.2) APTT (22.0-30.0) sec Sodium 142 (137-145) mmol/L Potassium 5.2 H (3.5-5.1) mmol/L Chloride 102 (98-107) mmol/L Carbon Dioxide 25 (22-30) mmol/L Anion Gap 15 mmol/L BUN 22 H (9-20) mg/dL Creatinine 1.38 H (0.66-1.25) mg/dL Est GFR (CKD-EPI)AfAm 60 (>60 ml/min/1.73 sqM) Est GFR (CKD-EPI)NonAf 52 (>60 ml/min/1.73 sqM) Glucose 149 H (74-99) mg/dL Plasma Lactic Acid Virgilio (0.7-2.0) mmol/L Calcium 9.9 (8.4-10.2) mg/dL Magnesium 2.0 (1.6-2.3) mg/dL Total Bilirubin 1.4 H (0.2-1.3) mg/dL AST 27 (17-59) U/L ALT 26 (21-72) U/L Alkaline Phosphatase 82 (38-126) U/L Total Creatine Kinase 33 L (55-170) U/L CK-MB (CK-2) 0.8 (0.0-2.4) ng/mL CK-MB (CK-2) Rel Index 2.4 Troponin I 0.029 (0.000-0.034) ng/mL NT-Pro-B Natriuret Pep pg/mL Total Protein 6.3 (6.3-8.2) g/dL Albumin 3.6 (3.5-5.0) g/dL Influenza Type A RNA (Not Detectd) Influenza Type B (PCR) (Not Detectd) 11/02/17 11/02/17 11/02/17 Range/Units 09:43 09:43 09:43 WBC (3.8-10.6) k/uL RBC (4.30-5.90) m/uL Hgb (13.0-17.5) gm/dL Hct (39.0-53.0) % MCV (80.0-100.0) fL MCH (25.0-35.0) pg MCHC (31.0-37.0) g/dL RDW (11.5-15.5) % Plt Count (150-450) k/uL Neutrophils % % Lymphocytes % % Monocytes % % Eosinophils % % Basophils % % Neutrophils # (1.3-7.7) k/uL Lymphocytes # (1.0-4.8) k/uL Monocytes # (0-1.0) k/uL Eosinophils # (0-0.7) k/uL Basophils # (0-0.2) k/uL PT 37.3 H (9.0-12.0) sec INR 4.2 H (<1.2) APTT 39.8 H (22.0-30.0) sec Sodium (137-145) mmol/L Potassium (3.5-5.1) mmol/L Chloride (98-107) mmol/L Carbon Dioxide (22-30) mmol/L Anion Gap mmol/L BUN (9-20) mg/dL Creatinine (0.66-1.25) mg/dL Est GFR (CKD-EPI)AfAm (>60 ml/min/1.73 sqM) Est GFR (CKD-EPI)NonAf (>60 ml/min/1.73 sqM) Glucose (74-99) mg/dL Plasma Lactic Acid Virgilio 1.3 (0.7-2.0) mmol/L Calcium (8.4-10.2) mg/dL Magnesium (1.6-2.3) mg/dL Total Bilirubin (0.2-1.3) mg/dL AST (17-59) U/L ALT (21-72) U/L Alkaline Phosphatase (38-126) U/L Total Creatine Kinase (55-170) U/L CK-MB (CK-2) (0.0-2.4) ng/mL CK-MB (CK-2) Rel Index Troponin I (0.000-0.034) ng/mL NT-Pro-B Natriuret Pep 2980 pg/mL Total Protein (6.3-8.2) g/dL Albumin (3.5-5.0) g/dL Influenza Type A RNA (Not Detectd) Influenza Type B (PCR) (Not Detectd) 11/02/17 Range/Units 10:32 WBC (3.8-10.6) k/uL RBC (4.30-5.90) m/uL Hgb (13.0-17.5) gm/dL Hct (39.0-53.0) % MCV (80.0-100.0) fL MCH (25.0-35.0) pg MCHC (31.0-37.0) g/dL RDW (11.5-15.5) % Plt Count (150-450) k/uL Neutrophils % % Lymphocytes % % Monocytes % % Eosinophils % % Basophils % % Neutrophils # (1.3-7.7) k/uL Lymphocytes # (1.0-4.8) k/uL Monocytes # (0-1.0) k/uL Eosinophils # (0-0.7) k/uL Basophils # (0-0.2) k/uL PT (9.0-12.0) sec INR (<1.2) APTT (22.0-30.0) sec Sodium (137-145) mmol/L Potassium (3.5-5.1) mmol/L Chloride (98-107) mmol/L Carbon Dioxide (22-30) mmol/L Anion Gap mmol/L BUN (9-20) mg/dL Creatinine (0.66-1.25) mg/dL Est GFR (CKD-EPI)AfAm (>60 ml/min/1.73 sqM) Est GFR (CKD-EPI)NonAf (>60 ml/min/1.73 sqM) Glucose (74-99) mg/dL Plasma Lactic Acid Virgilio (0.7-2.0) mmol/L Calcium (8.4-10.2) mg/dL Magnesium (1.6-2.3) mg/dL Total Bilirubin (0.2-1.3) mg/dL AST (17-59) U/L ALT (21-72) U/L Alkaline Phosphatase (38-126) U/L Total Creatine Kinase (55-170) U/L CK-MB (CK-2) (0.0-2.4) ng/mL CK-MB (CK-2) Rel Index Troponin I (0.000-0.034) ng/mL NT-Pro-B Natriuret Pep pg/mL Total Protein (6.3-8.2) g/dL Albumin (3.5-5.0) g/dL Influenza Type A RNA Not Detected (Not Detectd) Influenza Type B (PCR) Not Detected (Not Detectd) Critical Care Time Critical Care Time: Yes Total Critical Care Time: 35 Disposition Clinical Impression: Atrial fibrillation, Atrial fibrillation with RVR, Congestive heart failure Disposition: ADMITTED IP TO THIS [facility] Condition: Stable Is patient prescribed a controlled substance at discharge?: No Referrals: Gianluca Grissom MD [Primary Care Provider] - 1-2 days Decision to Admit Reason: Admit from EC Decision Date: 11/02/17 Decision Time: 11:54
[2017-11-02 09:56] LABS: Basophils % (A) 0 %; Eosinophils # (A) 0.1 k/uL (0-0.7); Eosinophils % (A) 1 %; HCT 38.2 % (39.0-53.0); HGB 12.5 gm/dL (13.0-17.5); Lymphocytes # (A) 0.6 k/uL (1.0-4.8); Lymphocytes % (A) 4 %; MCH 28.2 pg (25.0-35.0); MCHC 32.8 g/dL (31.0-37.0); Mean Platelet Volume 6.9; Monocytes % (A) 7 %; Neutrophils # (A) 13.3 k/uL (1.3-7.7); Neutrophils % (A) 88 %; Platelet Count 112 k/uL (150-450); RBC 4.44 m/uL (4.30-5.90); RDW 13.8 % (11.5-15.5); WBC 15.2 k/uL (3.8-10.6)
[2017-11-02 10:07] LABS: INR 4.2 (<1.2); Partial Thromboplastin Time 39.8 sec (22.0-30.0); Prothrombin Time 37.3 sec (9.0-12.0)
[2017-11-02 10:31] LABS: Creatine Kinase MB 0.8 ng/mL (0.0-2.4); Troponin I 0.029 ng/mL (0.000-0.034)
[2017-11-02 10:33] LABS: Albumin 3.6 g/dL (3.5-5.0); Calcium 9.9 mg/dL (8.4-10.2); Potassium 5.2 mmol/L (3.5-5.1); Total Bilirubin 1.4 mg/dL (0.2-1.3); Total Protein 6.3 g/dL (6.3-8.2)
--- NOTE | 2017-11-02 11:12 | XR ---
EXAMINATION TYPE: XR chest 2V DATE OF EXAM: 11/02/2017 COMPARISON: Chest x-ray October 15, 2017 HISTORY: Difficulty in breathing. TECHNIQUE: Frontal and lateral views of the chest are obtained. FINDINGS: There is persistent cardiomegaly with central congestion and bilateral opacities. No larg e pleural effusion or pneumothorax is seen bilaterally. Atherosclerotic change in aortic knob is rede monstrated. The osseous structures are intact. IMPRESSION: Suspect persistent CHF exacerbation as there is cardiomegaly with mild bilateral central alveolar and interstitial edema felt present. Correlate clinically.
[2017-11-02] MEDS ORDERED: FUROSEMIDE 10 MG/ML 4 ML VIAL IV STA (11:28)
[2017-11-02] MEDS ORDERED: ASPIRIN 325 MG TAB PO STA (11:28)
[2017-11-02] MEDS ORDERED: NALOXONE 0.4 MG/ML 1 ML VIAL IV PRN (11:49)
[2017-11-02] MEDS ORDERED: ACETAMINOPHEN TAB 325 MG TAB PO PRN (11:49)
[2017-11-02] MEDS ORDERED: DILTIAZEM 50 MG in SODIUM CHLORIDE 0.9% 40 ML IV ONE (12:00)
--- NOTE | 2017-11-02 15:28 | P.CRDCN ---
History of Present Illness Consult date: 11/02/17 Requesting physician: Cande Low Consult reason: congestive heart failure Chief complaint: Shortness of breath History of present illness: This is a 72-year-old gentleman who follows regularly with Dr. Dominguez in the office. He has known history of chronic persistent atrial fibrillation, hypertension, hyperlipidemia, sleep apnea, who was recently discharged home from the hospital, after being admitted with respiratory failure secondary to pneumonia. According to the patient, he's just been progressively more and more short of breath to the point where last evening he states he could hardly breathe at all. Positive PND and orthopnea. He does state he is still coughing obtain sputum. Chest x-ray reveals CHF exacerbation with mild bilateral interstitial edema. Blood pressure 110/60, heart rate in the 1 teens to 120s, 88% on 4 L of oxygen. White blood cell count 15.2, hemoglobin 12.5, platelet count 112. INR 4.2, potassium 5.2, BUN 22, creatinine 1.3. BNP level 2980. Troponin 0.029. Echocardiogram with Doppler study performed in September revealed an ejection fraction of 55-60%. At the time of my examination, patient was still quite short of breath. He was initiated on IV Lasix in the emergency room, 40 mg every 8 hourly. He was also resumed on his lisinopril 20 mg daily, metoprolol 100 mg twice a day, pravastatin 20 mg, Aldactone 25 mg daily. Patient is currently on IV Cardizem drip at 5 mg per hour. Past Medical History Past Medical History: Atrial Fibrillation, Heart Failure, GERD/Reflux, Hyperlipidemia, Hypertension, Osteoarthritis (OA), Prostate Disorder, Sleep Apnea/CPAP/BIPAP Additional Past Medical History / Comment(s): Pt recently admitted to [facility] on with acute respiratory failure 2ndary to interstitial pneumonia/sepsis and CHF. Other hx: Chronic Afib, CHLOE without device, chronic back pain, gout. History of Any Multi-Drug Resistant Organisms: None Reported Past Surgical History: Cholecystectomy, Joint Replacement Additional Past Surgical History / Comment(s): 02/19/17 diagnostic cardiac cath, right total knee arthroplasty, ventral hernia repair Past Anesthesia/Blood Transfusion Reactions: No Reported Reaction Smoking Status: Former smoker - Past Family History Father Family Medical History: No Reported History Additional Family Medical History / Comment(s): Dad at age 89 from stroke. Mother Family Medical History: No Reported History Additional Family Medical History / Comment(s): Mother is alive at age 90 with dementia. Sister(s) Additional Family Medical History / Comment(s): Patient has 2 sisters with no major medical problems. Patient does not have any brothers. Patient has 2 adult children with no major medical problems. Medications and Allergies Home Medications Medication Instructions Recorded Confirmed Type Allopurinol [Zyloprim] 100 mg PO HS 12/10/15 11/02/17 History Potassium Chloride [Klor-Con 10] 10 meq PO HS 12/10/15 11/02/17 History Pravastatin Sodium [Pravachol] 20 mg PO HS 12/10/15 11/02/17 History Spironolactone [Aldactone] 25 mg PO DAILY 12/10/15 11/02/17 History Benazepril HCl [Lotensin] 20 mg PO DAILY 09/27/16 11/02/17 History Colchicine [Colcrys] 0.6 mg PO BID 09/27/16 11/02/17 History Doxazosin Mesylate [Cardura] 8 mg PO HS 09/27/16 11/02/17 History Sildenafil [Revatio] 20 mg PO TID #90 tab 10/01/16 11/02/17 Rx Famotidine [Pepcid] 20 mg PO BID #30 tab 10/15/17 11/02/17 Rx Furosemide [Lasix] 40 mg PO BID@0900,1600 #60 tab 10/15/17 11/02/17 Rx Metoprolol Tartrate [Lopressor] 100 mg PO BID #120 tab 10/16/17 11/02/17 Rx Albuterol Inhaler [Ventolin Hfa 2 puff INHALATION RT-QID PRN 11/02/17 11/02/17 History Inhaler] Warfarin Sodium [Coumadin] 5 mg PO FR 11/02/17 11/02/17 History Warfarin Sodium [Coumadin] 7.5 mg PO SUMOTUWETHSA 11/02/17 11/02/17 History Allergies Allergy/AdvReac Type Severity Reaction Status Date / Time No Known Allergies Allergy Verified 11/02/17 10:41 Physical Exam Vitals: Vital Signs Temp Pulse Resp BP Pulse Ox 11/02/17 12:27 122 H 22 110/56 88 L 11/02/17 12:17 104 H 18 11/02/17 11:30 98.7 F 110 H 30 H 109/58 88 L 11/02/17 10:56 26 H 11/02/17 10:54 105 H 26 H 102/58 87 L 11/02/17 10:05 96 11/02/17 09:55 108 H 18 11/02/17 09:26 99 F 123 H 22 139/96 81 L Intake and Output 11/02/17 11/02/17 11/02/17 06:59 14:59 22:59 Other: Weight 163.293 kg PHYSICAL EXAMINATION: HEENT: Head is atraumatic, normocephalic. Pupils equal, round. Neck is supple. There is no elevated jugular venous pressure. HEART EXAMINATION: Heart S1, S2 irregularly irregular systolic ejection murmur is heard. . No murmur or gallop heard. CHEST EXAMINATION: Lungs reveal diminished air entry to the bases with crackles heard bilaterally. ABDOMEN: Soft, obese, nontender. Bowel sounds are heard. No organomegaly noted. EXTREMITIES:[ 2+ peripheral pulses with 1+ evidence of peripheral edema , evidence of bilateral venous stasis. NEUROLOGIC patient is awake, alert and oriented -3. . Results 11/02/17 09:43 11/02/17 09:43 Cardiac Enzymes 11/02/17 11/02/17 Range/Units 09:43 09:43 AST 27 (17-59) U/L CK-MB (CK-2) 0.8 (0.0-2.4) ng/mL Troponin I 0.029 (0.000-0.034) ng/mL Coagulation 11/02/17 Range/Units 09:43 PT 37.3 H (9.0-12.0) sec APTT 39.8 H (22.0-30.0) sec CBC 11/02/17 Range/Units 09:43 WBC 15.2 H (3.8-10.6) k/uL RBC 4.44 (4.30-5.90) m/uL Hgb 12.5 L (13.0-17.5) gm/dL Hct 38.2 L (39.0-53.0) % Plt Count 112 L (150-450) k/uL Comprehensive Metabolic Panel 11/02/17 Range/Units 09:43 Sodium 142 (137-145) mmol/L Potassium 5.2 H (3.5-5.1) mmol/L Chloride 102 (98-107) mmol/L Carbon Dioxide 25 (22-30) mmol/L BUN 22 H (9-20) mg/dL Creatinine 1.38 H (0.66-1.25) mg/dL Glucose 149 H (74-99) mg/dL Calcium 9.9 (8.4-10.2) mg/dL AST 27 (17-59) U/L ALT 26 (21-72) U/L Alkaline Phosphatase 82 (38-126) U/L Total Protein 6.3 (6.3-8.2) g/dL Albumin 3.6 (3.5-5.0) g/dL Current Medications Generic Name Dose Route Start Last Admin Trade Name Freq PRN Reason Stop Dose Admin Acetaminophen 650 mg 11/02/17 11:49 Tylenol Tab PO Q6HR PRN Mild Pain or Fever > 100.5 Furosemide 40 mg 11/02/17 16:00 Lasix IV Q8HR ROGER Diltiazem HCl 50 mg/ Sodium 50 mls @ 5 mls/hr 11/02/17 12:00 11/02/17 12:24 Chloride IV 11/02/17 21:59 5 mg/hr .Q10H ONE 5 mls/hr 5 MG/HR Administration Lisinopril 20 mg 11/03/17 09:00 Zestril PO DAILY [facility] Metoprolol Tartrate 100 mg 11/02/17 21:00 Lopressor PO BID ROGER Naloxone HCl 0.2 mg 11/02/17 11:49 Narcan IV Q2M PRN Opioid Reversal Pravastatin Sodium 20 mg 11/02/17 21:00 Pravachol PO HS ROGER Spironolactone 25 mg 11/03/17 09:00 Aldactone PO DAILY [facility] Intake and Output 11/02/17 11/02/17 11/02/17 06:59 14:59 22:59 Other: Weight 163.293 kg Patient Weight 11/03/17 06:59 Weight 163.293 kg 11/02/17 09:43 11/02/17 09:43 EKG Interpretations (text) EKG shows atrial fibrillation with rapid ventricular response Assessment and Plan Plan: Assessment and plan #1 diastolic congestive heart failure, acute on chronic. Most recent echocardiogram with Doppler study was performed in September 2017 revealed an ejection fraction of 55-60%. Moderate pulmonary hypertension. #2 chronic persistent atrial fibrillation on Coumadin for anticoagulation #3 hypertension #4 hyperlipidemia #5 obesity #6 obstructive sleep apnea #7 borderline hyperlipidemia #8 prior history of smoking #9 recent right cardiac catheterization which showed no evidence of pulmonary hypertension. Plan From cardiology's perspective, we will not repeat an echocardiogram with Doppler study as the patient had one less than a month ago. We will continue current dose of IV Lasix 40 mg every 8 hourly. Continue to monitor intake and output along with daily weights. We will continue lisinopril 20 mg daily, metoprolol 100 mg by mouth twice a day, pravastatin 20 mg daily, Aldactone 25 mg daily. We will also add a calcium channel jacinto to the patient's medication regime to optimize heart rate control. Obtain progress note from the office Further recommendations will be based on these findings and patient' s clinical course. DNP note has been reviewed, I agree with a documented findings and plan of care. Patient was seen and examined.
[2017-11-02] MEDS: DILTIAZEM ORAL 30 MG TAB PO SCH ×2 (17:17→21:21)
[2017-11-02] MEDS: FUROSEMIDE 10 MG/ML 4 ML VIAL IV SCH ×2 (17:17→23:49)
--- NOTE | 2017-11-02 18:36 | P.HPIM ---
History of Present Illness H&P Date: 11/02/17 Chief Complaint: Shortness of breath and dyspnea on exertion, atrial fibrillation with rapid 64-year-old male patient of Dr. Grissom and Dr. Dominguez with known medical history of hypertension, hyperlipidemia and benign prostatic hypertrophy , chronic back pain, gout, osteoarthritis and borderline diabetes chronic atrial fibrillation, pulmnary hpertension , history of obstructive sleep apnea but unable to tolerate CPAP but currently not using CPAP at home. presents with shortness of breath for a couple of days worsening with activity. He was just admitted from our facility, 10/14/2017, and was treated for interstitial pneumonia, BNP was elevated at that time for acute diastolic CHF, he had a Mycoplasma antigen Danielle antibodies that were negative, he was discharged to home, after diuresing and IV steroids. Last echocardiogram, 10/14, EF 55-60%, LVH, severely dilated left atrium, right ventricle systolic pressure of 48 consistent with moderate pulmonary hypertension. No recent CAT scan for review, no d-dimer however patient is chronically anticoagulated, creatinine baseline would be 1.1-1.3, last hemoglobin A1c of 5.24 September 2017 CO2 levels at that time was 31 He was seen by Dr[address] Solorzano in the office today, and was noted to be dyspneic, with A. fib RVR, patient has blue lips when seen, him a patient slightly metabolic acidotic, looks like he is compensated, INR off 4, creatinine of 1.38 slightly higher than baseline. Patient has a chest x-ray of extensive pulmonary infiltrates, significantly worsened old exam, related to pulmonary fibrosis heart failure or interstitial pneumonia. There is no pleural effusions no cardiomegaly Cardiology is consulted and is currently on Lasix 40 mg every 8 hours Review of Systems Constitutional: Reports as per HPI, Denies anorexia, Denies chills, Denies chronic headaches, Denies chronic pain, Denies daytime sleepiness, Denies fatigue, Denies fever, Denies lethargy, Denies malaise, Denies night sweats, Denies poor appetite, Denies sweats, Denies weakness, Denies weight gain, Denies weight loss Ears, nose, mouth and throat: Reports as per HPI, Denies ant. neck pain, Denies bleeding gums, Denies dental pain, Denies dysphagia, Denies epistaxis, Denies headache, Denies hoarseness, Denies mouth pain, Denies nasal congestion, Denies nasal discharge, Denies neck fullness/pressure, Denies neck lump, Denies nose pain, Denies odynophagia, Denies post-nasal drip, Denies sinus pain, Denies sinus pressure, Denies swelling in mouth, Denies swelling in throat, Denies sore throat, Denies vertigo, Denies voice changes Cardiovascular: Reports as per HPI, Reports decreased exercise tolerance, Reports dyspnea on exertion, Reports edema, Reports irregular heart beat, Reports leg edema, Reports orthopnea, Reports paroxysmal nocturnal dyspnea, Denies chest pain, Denies claudication, Denies high blood pressure, Denies lightheadedness, Denies palpitations, Denies phlebitis, Denies rapid heart beat , Denies shortness of breath, Denies syncope Respiratory: Reports as per HPI, Reports cough, Reports dyspnea, Reports respiratory infections, Reports wheezing, Denies congestion, Denies cough with sputum, Denies excessive sputum, Denies hemoptysis, Denies home oxygen, Denies pain, Denies pain on inspiration, Denies pleurisy, Denies sleep apnea, Denies snoring Gastrointestinal: Reports as per HPI, Denies abdominal pain, Denies belching, Denies bloating, Denies BRBPR, Denies change in bowel habits, Denies coffee ground emesis, Denies constipation, Denies diarrhea, Denies dyspepsia, Denies early satiety, Denies excessive gas, Denies heartburn, Denies hematemesis, Denies hematochezia, Denies indigestion, Denies jaundice, Denies lactose intolerance, Denies loss of appetite, Denies melena, Denies nausea, Denies vomiting Genitourinary: Reports as per HPI, Denies decreased libido, Denies difficulties fathering child, Denies discharge, Denies dysuria, Denies erectile dysfunction, Denies flank pain, Denies genital pain, Denies genital sores, Denies hematuria, Denies impotence, Denies incontinence, Denies kidney stones, Denies nocturia, Denies polyuria, Denies testicular lump, Denies testicular pain, Denies urinary frequency, Denies urinary hesitancy, Denies urinary retention Musculoskeletal: Reports as per HPI, Denies arm numbness/tingling, Denies atrophy, Denies fractures, Denies frequent falls, Denies gait dysfunction, Denies hot joints, Denies leg numbness/tingling, Denies limitation of motion, Denies loss of height, Denies low back pain, Denies morning stiffness, Denies muscle cramps, Denies muscle weakness, Denies myalgias, Denies neck pain, Denies neck stiffness, Denies prior amputations, Denies redness of joints, Denies shooting arm pain, Denies shooting leg pain Integumentary: Reports as per HPI, Denies acne, Denies boils, Denies brittle nails, Denies change in hair/nails, Denies color changes, Denies darkening of skin, Denies depigmentation, Denies dryness, Denies foot/leg ulcers, Denies growths, Denies hirsutism, Denies lesions, Denies onychomycosis, Denies pruritus , Denies rash, Denies sores, Denies striae, Denies unusual bruising, Denies wounds Neurological: Reports as per HPI, Denies aphasia, Denies ataxia, Denies balance difficulties, Denies burning pain, Denies change in mentation, Denies change in smell/taste, Denies change in speech, Denies confusion, Denies convulsions, Denies double vision, Denies gait dysfunction, Denies head injury, Denies headaches, Denies hearing difficulties, Denies lack of coordination, Denies loss of vision, Denies memory loss, Denies migraines, Denies motor disturbance, Denies numbness, Denies paralysis, Denies paresthesias, Denies seizures, Denies sensory deficit, Denies spasticity, Denies syncope, Denies tic, Denies tingling , Denies transient paralysis, Denies tremors, Denies vertigo, Denies weakness, Denies visual changes Psychiatric: Reports as per HPI Endocrine: Reports as per HPI Hematologic/Lymphatic: Reports as per HPI Allergic/Immunologic: Reports as per HPI Past Medical History Past Medical History: Atrial Fibrillation, Heart Failure, GERD/Reflux, Hyperlipidemia, Hypertension, Osteoarthritis (OA), Prostate Disorder, Sleep Apnea/CPAP/BIPAP Additional Past Medical History / Comment(s): Pt recently admitted to [facility] on with acute respiratory failure 2ndary to interstitial pneumonia/sepsis and CHF. Other hx: Chronic Afib, CHLOE without device, chronic back pain, gout. History of Any Multi-Drug Resistant Organisms: None Reported Past Surgical History: Cholecystectomy, Joint Replacement Additional Past Surgical History / Comment(s): 02/19/17 diagnostic cardiac cath, right total knee arthroplasty, ventral hernia repair Past Anesthesia/Blood Transfusion Reactions: No Reported Reaction Smoking Status: Former smoker - Past Family History Father Family Medical History: No Reported History Additional Family Medical History / Comment(s): Dad at age 89 from stroke. Mother Family Medical History: No Reported History Additional Family Medical History / Comment(s): Mother is alive at age 90 with dementia. Sister(s) Additional Family Medical History / Comment(s): Patient has 2 sisters with no major medical problems. Patient does not have any brothers. Patient has 2 adult children with no major medical problems. Medications and Allergies Home Medications Medication Instructions Recorded Confirmed Type Allopurinol [Zyloprim] 100 mg PO HS 12/10/15 11/02/17 History Potassium Chloride [Klor-Con 10] 10 meq PO HS 12/10/15 11/02/17 History Pravastatin Sodium [Pravachol] 20 mg PO HS 12/10/15 11/02/17 History Spironolactone [Aldactone] 25 mg PO DAILY 12/10/15 11/02/17 History Benazepril HCl [Lotensin] 20 mg PO DAILY 09/27/16 11/02/17 History Colchicine [Colcrys] 0.6 mg PO BID 09/27/16 11/02/17 History Doxazosin Mesylate [Cardura] 8 mg PO HS 09/27/16 11/02/17 History Sildenafil [Revatio] 20 mg PO TID #90 tab 10/01/16 11/02/17 Rx Famotidine [Pepcid] 20 mg PO BID #30 tab 10/15/17 11/02/17 Rx Furosemide [Lasix] 40 mg PO BID@0900,1600 #60 tab 10/15/17 11/02/17 Rx Metoprolol Tartrate [Lopressor] 100 mg PO BID #120 tab 10/16/17 11/02/17 Rx Albuterol Inhaler [Ventolin Hfa 2 puff INHALATION RT-QID PRN 11/02/17 11/02/17 History Inhaler] Warfarin Sodium [Coumadin] 5 mg PO FR 11/02/17 11/02/17 History Warfarin Sodium [Coumadin] 7.5 mg PO SUMOTUWETHSA 11/02/17 11/02/17 History Allergies Allergy/AdvReac Type Severity Reaction Status Date / Time No Known Allergies Allergy Verified 11/02/17 10:41 Physical Exam Vitals: Vital Signs Temp Pulse Resp BP Pulse Ox 11/02/17 12:27 122 H 22 110/56 88 L 11/02/17 12:17 104 H 18 11/02/17 11:30 98.7 F 110 H 30 H 109/58 88 L 11/02/17 10:56 26 H 11/02/17 10:54 105 H 26 H 102/58 87 L 11/02/17 10:05 96 11/02/17 09:55 108 H 18 11/02/17 09:26 99 F 123 H 22 139/96 81 L Intake and Output 11/02/17 11/02/17 11/02/17 06:59 14:59 22:59 Other: Weight 163.293 kg - Constitutional General appearance: cooperative, morbidly obese - EENT Eyes: EOMI, PERRLA, dentition normal, normal appearance ENT: NA/AT, normal oropharynx - Neck Neck: normal ROM - Respiratory Respiratory: bilateral: CTA, negative: diminished, dullness - Cardiovascular Rhythm: irregularly irregular Heart sounds: normal: S1, S2 - Gastrointestinal General gastrointestinal: normal bowel sounds, soft - Integumentary Integumentary: decreased turgor, normal - Neurologic Neurologic: CNII-XII intact - Musculoskeletal Musculoskeletal: generalized weakness, strength equal bilaterally - Psychiatric Psychiatric: A&O x's 3, appropriate affect, intact judgment & insight Results CBC & Chem 7: 11/02/17 09:43 11/02/17 09:43 Labs: Abnormal Lab Results - Last 24 Hours (Table) 11/02/17 11/02/17 11/02/17 Range/Units 09:43 09:43 09:43 WBC 15.2 H (3.8-10.6) k/uL Hgb 12.5 L (13.0-17.5) gm/dL Hct 38.2 L (39.0-53.0) % Plt Count 112 L (150-450) k/uL Neutrophils # 13.3 H (1.3-7.7) k/uL Lymphocytes # 0.6 L (1.0-4.8) k/uL PT (9.0-12.0) sec INR (<1.2) APTT (22.0-30.0) sec Potassium 5.2 H (3.5-5.1) mmol/L BUN 22 H (9-20) mg/dL Creatinine 1.38 H (0.66-1.25) mg/dL Glucose 149 H (74-99) mg/dL Total Bilirubin 1.4 H (0.2-1.3) mg/dL Total Creatine Kinase 33 L (55-170) U/L 11/02/17 Range/Units 09:43 WBC (3.8-10.6) k/uL Hgb (13.0-17.5) gm/dL Hct (39.0-53.0) % Plt Count (150-450) k/uL Neutrophils # (1.3-7.7) k/uL Lymphocytes # (1.0-4.8) k/uL PT 37.3 H (9.0-12.0) sec INR 4.2 H (<1.2) APTT 39.8 H (22.0-30.0) sec Potassium (3.5-5.1) mmol/L BUN (9-20) mg/dL Creatinine (0.66-1.25) mg/dL Glucose (74-99) mg/dL Total Bilirubin (0.2-1.3) mg/dL Total Creatine Kinase (55-170) U/L Laboratory Results WBC 15.2 k/uL (3.8-10.6) H 11/02/17 09:43 RBC 4.44 m/uL (4.30-5.90) 11/02/17 09:43 Hgb 12.5 gm/dL (13.0-17.5) L 11/02/17 09:43 Hct 38.2 % (39.0-53.0) L 11/02/17 09:43 MCV 86.0 fL (80.0-100.0) 11/02/17 09:43 MCH 28.2 pg (25.0-35.0) 11/02/17 09:43 MCHC 32.8 g/dL (31.0-37.0) 11/02/17 09:43 RDW 13.8 % (11.5-15.5) 11/02/17 09:43 Plt Count 112 k/uL (150-450) L 11/02/17 09:43 Neutrophils % 88 % 11/02/17 09:43 Lymphocytes % 4 % 11/02/17 09:43 Monocytes % 7 % 11/02/17 09:43 Eosinophils % 1 % 11/02/17 09:43 Basophils % 0 % 11/02/17 09:43 Neutrophils # 13.3 k/uL (1.3-7.7) H 11/02/17 09:43 Lymphocytes # 0.6 k/uL (1.0-4.8) L 11/02/17 09:43 Monocytes # 1.0 k/uL (0-1.0) 11/02/17 09:43 Eosinophils # 0.1 k/uL (0-0.7) 11/02/17 09:43 Basophils # 0.0 k/uL (0-0.2) 11/02/17 09:43 PT 37.3 sec (9.0-12.0) H 11/02/17 09:43 INR 4.2 (<1.2) H 11/02/17 09:43 APTT 39.8 sec (22.0-30.0) H 11/02/17 09:43 Sodium 142 mmol/L (137-145) 11/02/17 09:43 Potassium 5.2 mmol/L (3.5-5.1) H 11/02/17 09:43 Chloride 102 mmol/L (98-107) 11/02/17 09:43 Carbon Dioxide 25 mmol/L (22-30) 11/02/17 09:43 Anion Gap 15 mmol/L 11/02/17 09:43 BUN 22 mg/dL (9-20) H 11/02/17 09:43 Creatinine 1.38 mg/dL (0.66-1.25) H 11/02/17 09:43 Est GFR (CKD-EPI)AfAm 60 (>60 ml/min/1.73 sqM) 11/02/17 09:43 Est GFR (CKD-EPI)NonAf 52 (>60 ml/min/1.73 sqM) 11/02/17 09:43 Glucose 149 mg/dL (74-99) H 11/02/17 09:43 Plasma Lactic Acid Virgilio 1.3 mmol/L (0.7-2.0) 11/02/17 09:43 Calcium 9.9 mg/dL (8.4-10.2) 11/02/17 09:43 Magnesium 2.0 mg/dL (1.6-2.3) 11/02/17 09:43 Total Bilirubin 1.4 mg/dL (0.2-1.3) H 11/02/17 09:43 AST 27 U/L (17-59) 11/02/17 09:43 ALT 26 U/L (21-72) 11/02/17 09:43 Alkaline Phosphatase 82 U/L (38-126) 11/02/17 09:43 Total Creatine Kinase 33 U/L (55-170) L 11/02/17 09:43 CK-MB (CK-2) 0.8 ng/mL (0.0-2.4) 11/02/17 09:43 CK-MB (CK-2) Rel Index 2.4 11/02/17 09:43 Troponin I 0.029 ng/mL (0.000-0.034) 11/02/17 09:43 NT-Pro-B Natriuret Pep 2980 pg/mL 11/02/17 09:43 Total Protein 6.3 g/dL (6.3-8.2) 11/02/17 09:43 Albumin 3.6 g/dL (3.5-5.0) 11/02/17 09:43 Influenza Type A RNA Not Detected (Not Detectd) 11/02/17 10:32 Influenza Type B (PCR) Not Detected (Not Detectd) 11/02/17 10:32 Thrombosis Risk Factor Assmnt - DVT/VTE Prophylaxis DVT/VTE Prophylaxis: Pharmacologic Prophylaxis ordered - Choose All That Apply Any of the Below Risk Factors Present?: Yes Each Factor Represents 1 point: Heart failure (<1month), Obesity (BMI >25), Sepsis (< 1month), Serious lung disease incl. pneumonia (< 1month) Other Risk Factors: Yes Each Risk Factor Represents 2 Points: Age 61-74 years Other congenital or acquired thrombophilia - If yes, enter type in comment: No Thrombosis Risk Factor Assessment Total Risk Factor Score: 6 Thrombosis Risk Factor Assessment Level: High Risk Assessment and Plan Plan: 1. Acute hypoxic with hypercarbic respiratory failure secondary to interstitial pneumonitis ,, pulmonary fibrosis is in the differential, also with acute diastolic heart failure. Continue O2 to maintain a pulse ox equal to or greater than 92%. Echocardiogram was recently done during his last admission , reports noted and dictated, Consult with pulmonary medicine and cardiology. Obtain computed tomography scan of the chest high resolution, with recent failures involving Rocephin and Zithromax, we'll going to do gram-negative as well as hospital of the back coverage, Zosyn and Levaquin, Solu-Medrol at 60 mg every 6 hours Lasix 40 mg every 8 hours, check for postvoid residual 2. Atrial fibrillation with rapid ventricular response with history of chronic atrial fibrillation. Hold Coumadin was supratherapeutic INR . Metoprolol resumed. Continue to monitor INR. Cardiology and pulmonary medicine consult. 3. Supratherapeutic INR on Coumadin. Hold Coumadin. PT/INR ordered. No vitamin K needed 4. Secondary Moderate pulmonary hypertension with systolic pressure of 48, currently on diuretics, most like is secondary to obstructive sleep apnea rather than CTEPH, (chronic thromboembolic pulmonary hypertension) as the , patient's chronically on anticoagulation, however patient is noncompliant CPAP , followed with Dr. Rm for pulmonary hypertension clinic, patient had a right heart cath which did not show true pulmonary hypertension 5. Obstructive sleep apnea, noncompliance to CPAP secondary to discomfort and PTSD related to its use, pulmonary to evaluate for possible needs outpatient including BiPAP. Advocated encourage to pursue weight loss 6 chronic dependent edema, leg swelling is at baseline, continue diuretics, leg elevation, 7. Hypertension. Continue benazepril 20 mg daily and Lopressor 50 mg twice daily, Aldactone 25 mg daily. 8. Acute on chronic diastolic heart failure. Echocardiogram as above. Continue Lasix 40 mg po every 8 hours IV hours and Aldactone 25 mg daily. INR monitoring. Daily weight 9. Benign prostatic hypertrophy. Continue Cardura. Check for postvoid residual 10. Acute renal sufficiency with CK D stage III, monitor creatinine, possibly ATN, avoid nephrotoxins and hypotension 11. Hyperlipidemia. Continue Pravachol. 12. Gout unspecified. Continue colchicine and allopurinol. 13. Chronic low back pain and generalized osteoarthritis, stable. 14. diabetes mellitus type 2 with chemical induced hyperglycemia, last aic 6.4 , no current maintenance medication. Humalog scale DVT prophylaxis. INR supratherapeutic on Coumadin maintenance Gastrointestinal prophylaxis. Pepcid 20 mg by mouth twice a day
[2017-11-02 20:30] LABS: Glucose,Whole Blood 126 mg/dL (75-99)
[2017-11-02] MEDS ORDERED: ALBUTEROL NEBULIZED 2.5 MG/3 ML INHALATION PRN (20:33)
[2017-11-02] MEDS: methylPREDNISolone SOD SUCCI 125 MG/2 ML VIAL IV SCH ×2 (20:56→23:49)
[2017-11-02] MEDS: PIPERACILLIN-TAZOBACTAM 3.375 GM in DEXTROSE/WATER 1 50ML.BAG IVPB SCH (20:56)
[2017-11-02] MEDS: BUDESONIDE 1 MG/2 ML NEBU INHALATION SCH (21:04)
[2017-11-02] MEDS: METOPROLOL TARTRATE 50 MG TAB PO SCH (21:21)
[2017-11-02] MEDS: DOXAZOSIN 4 MG TAB PO SCH (21:21)
[2017-11-02] MEDS: COLCHICINE 0.6 MG EACH PO SCH (21:21)
[2017-11-02] MEDS: ALLOPURINOL 100 MG TAB PO SCH (21:21)
[2017-11-02] MEDS: guaiFENesin 600 MG TABLET.ER PO SCH (21:21)
[2017-11-02] MEDS: FAMOTIDINE 20 MG TAB PO SCH (21:21)
[2017-11-02] MEDS: SILDENAFIL 20 MG TAB PO SCH (21:21)
[2017-11-02] MEDS: PRAVASTATIN SODIUM 20 MG TAB PO SCH (21:21)
[2017-11-03 02:37] LABS: Hemoglobin A1C 6.3 % (4.0-6.0)
[2017-11-03] MEDS: PIPERACILLIN-TAZOBACTAM 3.375 GM in DEXTROSE/WATER 1 50ML.BAG IVPB SCH ×3 (03:42→20:02)
[2017-11-03 06:06] LABS: Glucose,Whole Blood 245 mg/dL (75-99)
[2017-11-03] MEDS: methylPREDNISolone SOD SUCCI 125 MG/2 ML VIAL IV SCH ×3 (06:10→17:14)
[2017-11-03 06:24] LABS: Albumin 3.5 g/dL (3.5-5.0); Calcium 8.8 mg/dL (8.4-10.2); Potassium 4.6 mmol/L (3.5-5.1); Total Protein 6.2 g/dL (6.3-8.2)
[2017-11-03 06:26] LABS: INR 2.6 (<1.2); Prothrombin Time 23.4 sec (9.0-12.0)
[2017-11-03] MEDS: INSULIN ASPART 100 UNIT/ML 1 ML 10 ML VIAL SQ SCH ×4 (06:34→21:42)
[2017-11-03] MEDS: BUDESONIDE 1 MG/2 ML NEBU INHALATION SCH ×2 (08:14→20:58)
[2017-11-03] MEDS: FUROSEMIDE 10 MG/ML 4 ML VIAL IV SCH ×2 (08:30→15:50)
[2017-11-03] MEDS: DILTIAZEM ORAL 30 MG TAB PO SCH ×3 (08:31→20:02)
[2017-11-03] MEDS: guaiFENesin 600 MG TABLET.ER PO SCH ×2 (08:31→20:02)
[2017-11-03] MEDS: LISINOPRIL 20 MG TAB PO SCH (08:32)
[2017-11-03] MEDS: FAMOTIDINE 20 MG TAB PO SCH ×2 (08:32→20:02)
[2017-11-03] MEDS: COLCHICINE 0.6 MG EACH PO SCH ×2 (08:32→20:01)
[2017-11-03] MEDS: SPIRONOLACTONE 25 MG TAB PO SCH (08:33)
[2017-11-03] MEDS: SILDENAFIL 20 MG TAB PO SCH ×3 (08:33→20:02)
[2017-11-03] MEDS: METOPROLOL TARTRATE 50 MG TAB PO SCH ×2 (08:33→20:02)
--- NOTE | 2017-11-03 09:29 | P.PN ---
Progress Note - Text This is an addendum to the dictated cardiology consultation. The patient has a known history of chronic persistent atrial fibrillation who presented with symptoms of worsening dyspnea. He also had a cough productive of brownish sputum. He was admitted to the hospital few weeks ago with findings of pneumonia and at that time his echocardiogram showed a preserved systolic function and mild pulmonary hypertension. He has been having progressive dyspnea for the last few days but he did not have any significant weight gain, change in his peripheral edema, PND or orthopnea. On presentation he chest x- ray suggested CHF and his NT proBNP was elevated. He's feeling better this morning after receiving diuretics. His physical examination shows decrease air exchange, he is in atrial fibrillation and has chronic stasis with trace edema. The patient presents with symptoms suggestive of CHF with diastolic dysfunction superimposed on respiratory infection. I agree with your plan to use intravenous diuresis for the next 24 hours, we will continue anticoagulation, beta jacinto and his NASIR inhibitor and depending on his progress further recommendations will be made. Thank you for this consult we will follow with you.
--- NOTE | 2017-11-03 09:54 | CT ---
EXAMINATION TYPE: CT chest wo con DATE OF EXAM: 11/03/2017 COMPARISON: NONE HISTORY: Patient complains of difficulty breathing. CT DLP: 993 mGycm. Automated Exposure Control for Dose Reduction was Utilized. TECHNIQUE: CT scan of the thorax is performed without IV contrast. FINDINGS: LUNGS: The lungs are remarkable for basilar interstitial linear densities, interlobular septal pleura l thickening, some cystic subpleural foci scattered within the lung bases, less so in the upper lobes with some suggested areas of honeycombing inferiorly. No significant bronchiectasis, focal scarring in the right lower lobe. No pleural pericardial effusion. Groundglass opacities are present bilateral ly in the upper lobes. MEDIASTINUM: Lack of IV contrast is noted to limit evaluation for mediastinal and especially hilar ad enopathy. There are no definitive greater than 1 cm hilar or mediastinal lymph nodes. No cardiomega ly or pericardial effusion is seen. Coronary artery calcifications are present. Heart size is upper l imit of normal. OTHER: Patient is post cholecystectomy. Lack of intravenous contrast could compromise sensitivity. Th e spleen is enlarged, there is calcification present suggesting old granulomatous disease IMPRESSION: Findings compatible with patient's history of interstitial lung disease, findings may be indicative of usual interstitial pneumonia. Upper lobe groundglass opacity suggests active airspace d isease, consider pneumonitis, allergic alveolitis and drug toxicity, collagen vascular disease or env ironmental exposure.
--- NOTE | 2017-11-03 10:26 | P.CNPUL ---
History of Present Illness Consult date: 11/03/17 Requesting physician: Cande Low Reason for consult: pulmonary fibrosis, pulmonary hypertension Chief complaint: Shortness of breath History of present illness: This is a 72-year-old male patient well known to our services being seen and examined and evaluated today for consultation. This patient originally came into the emergency department complaining of aggressive worsening shortness of breath and was found to also have A. fib with RVR. The patient was recently in the hospital on 10/14/2017 was treated for his interstitial pneumonia and acute diastolic exacerbation of CHF. Patient was discharged home after diuresis IV steroids and antibiotics. During his emergency room evaluation yesterday the patient was noted to have an INR of 4.2, WBC count of 15.2, potassium of 5.2, BUN 22, creatinine 1.3. Influenza swab was negative. The patient was tachycardic and Neck and required supplemental oxygen to maintain oxygen saturations greater then 90%. His last echocardiogram was 10/14/2017 showed an EF of 55-60% with an RVSP of 48. Patient is also known to have a significant history of severe obstructive sleep apnea however is noncompliant and refuses to use CPAP. Upon examination today the patient is resting up in bed on 4 L of supplemental oxygen via nasal cannula. He continues to have shortness of breath with any exertion and activity. He does have a persistent cough with brownish avila sputum. Chest x-ray was reviewed and does show persistent CHF exacerbation and cardiomegaly with mild bilateral central A velar and interstitial edema. He did undergo a CTA this morning of the chest which did show findings compatible with interstitial lung disease and may be indicative of interstitial pneumonia. Upper lobe groundglass opacities to suggest active airspace disease. He was on a Cardizem drip previously for his A. fib with RVR however this has been transitioned to oral by cardiology, heart rate is currently controlled. Review of Systems 14 point review of systems was completed and is negative from the sound above in the HPI. Past Medical History Past Medical History: Atrial Fibrillation, Heart Failure, GERD/Reflux, Hyperlipidemia, Hypertension, Osteoarthritis (OA), Prostate Disorder, Sleep Apnea/CPAP/BIPAP Additional Past Medical History / Comment(s): Pt recently admitted to [facility] on with acute respiratory failure 2ndary to interstitial pneumonia/sepsis and CHF. Other hx: Chronic Afib, CHLOE without device, chronic back pain, gout. History of Any Multi-Drug Resistant Organisms: None Reported Past Surgical History: Cholecystectomy, Joint Replacement Additional Past Surgical History / Comment(s): 02/19/17 diagnostic cardiac cath, right total knee arthroplasty, ventral hernia repair Past Anesthesia/Blood Transfusion Reactions: No Reported Reaction Smoking Status: Former smoker - Past Family History Father Family Medical History: No Reported History Additional Family Medical History / Comment(s): Dad at age 89 from stroke. Mother Family Medical History: No Reported History Additional Family Medical History / Comment(s): Mother is alive at age 90 with dementia. Sister(s) Additional Family Medical History / Comment(s): Patient has 2 sisters with no major medical problems. Patient does not have any brothers. Patient has 2 adult children with no major medical problems. Medications and Allergies Home Medications Medication Instructions Recorded Confirmed Type Allopurinol [Zyloprim] 100 mg PO HS 12/10/15 11/02/17 History Potassium Chloride [Klor-Con 10] 10 meq PO HS 12/10/15 11/02/17 History Pravastatin Sodium [Pravachol] 20 mg PO HS 12/10/15 11/02/17 History Spironolactone [Aldactone] 25 mg PO DAILY 12/10/15 11/02/17 History Benazepril HCl [Lotensin] 20 mg PO DAILY 09/27/16 11/02/17 History Colchicine [Colcrys] 0.6 mg PO BID 09/27/16 11/02/17 History Doxazosin Mesylate [Cardura] 8 mg PO HS 09/27/16 11/02/17 History Sildenafil [Revatio] 20 mg PO TID #90 tab 10/01/16 11/02/17 Rx Famotidine [Pepcid] 20 mg PO BID #30 tab 10/15/17 11/02/17 Rx Furosemide [Lasix] 40 mg PO BID@0900,1600 #60 tab 10/15/17 11/02/17 Rx Metoprolol Tartrate [Lopressor] 100 mg PO BID #120 tab 10/16/17 11/02/17 Rx Albuterol Inhaler [Ventolin Hfa 2 puff INHALATION RT-QID PRN 11/02/17 11/02/17 History Inhaler] Warfarin Sodium [Coumadin] 5 mg PO FR 11/02/17 11/02/17 History Warfarin Sodium [Coumadin] 7.5 mg PO SUMOTUWETHSA 11/02/17 11/02/17 History Allergies Allergy/AdvReac Type Severity Reaction Status Date / Time No Known Allergies Allergy Verified 11/02/17 10:41 Physical Exam Vitals: Vital Signs Temp Pulse Pulse Resp BP BP Pulse Ox 11/03/17 08:24 100 11/03/17 08:14 92 93 L 11/03/17 04:01 18 93 L 11/03/17 04:00 97.6 F 91 18 97/57 81 L 11/03/17 00:00 97.4 F L 74 18 105/52 91 L 11/02/17 20:00 97.9 F 103 H 18 107/63 91 L 11/02/17 16:00 97.8 F 113 H 18 112/71 91 L 11/02/17 12:40 99.1 F 115 H 18 119/74 89 L 11/02/17 12:27 122 H 22 110/56 88 L 11/02/17 12:17 104 H 18 11/02/17 11:30 98.7 F 110 H 30 H 109/58 88 L 11/02/17 10:56 26 H 11/02/17 10:54 105 H 26 H 102/58 87 L Intake and Output 11/02/17 11/03/17 11/03/17 22:59 06:59 14:59 Intake Total 360 140 240 Output Total 475 1450 Balance -115 -1310 240 Intake: IV 40 0.9 40 Intake, IV Titration 100 Amount Piperacillin-Tazobactam 3 100 .375 gm In Dextrose/Water 1 50ml.bag @ 12.5 mls/hr IVPB Q8H [facility] Rx#: [id number] Oral 360 240 Output: Urine 475 1450 Other: Voiding Method Urinal Urinal Weight 162.2 kg GENERAL EXAM: Alert, morbidly obese, comfortable in no apparent distress. HEAD: Normocephalic. EYES: Normal reaction of pupils, equal size. NOSE: Clear with pink turbinates. THROAT: No erythema or exudates. NECK: No masses, no JVD. CHEST: No chest wall deformity. LUNGS: Diminished air entry bilaterally, scattered expiratory wheezing noted. Bases diminished CVS: S1 and S2 normal with no audible mumurs, regular rhythm. ABDOMEN: No hepatosplenomegaly, normal bowel sounds, no guarding or rigidity. EXTREMITIES: Chronic bilateral lower extremity skin changes, trace edema noted, pedal pulses palpable. CENTRAL NERVOUS SYSTEM: No focal deficits, tone is normal in all 4 extremities. Results - Laboratory Findings CBC and BMP: 11/02/17 09:43 11/03/17 05:48 PT/INR, D-dimer PT 23.4 sec (9.0-12.0) H 11/03/17 05:48 INR 2.6 (<1.2) H 11/03/17 05:48 Abnormal lab findings: Abnormal Labs 11/02/17 11/02/17 11/02/17 09:43 09:43 09:43 WBC 15.2 H Hgb 12.5 L Hct 38.2 L Plt Count 112 L Neutrophils # 13.3 H Lymphocytes # 0.6 L PT INR APTT Potassium 5.2 H Chloride Carbon Dioxide BUN 22 H Creatinine 1.38 H Glucose 149 H POC Glucose (mg/dL) Hemoglobin A1c Total Bilirubin 1.4 H Total Creatine Kinase 33 L Total Protein 11/02/17 11/02/17 11/02/17 09:43 09:43 20:29 WBC Hgb Hct Plt Count Neutrophils # Lymphocytes # PT 37.3 H INR 4.2 H APTT 39.8 H Potassium Chloride Carbon Dioxide BUN Creatinine Glucose POC Glucose (mg/dL) 126 H Hemoglobin A1c 6.3 H Total Bilirubin Total Creatine Kinase Total Protein 11/03/17 11/03/17 11/03/17 05:48 05:48 06:05 WBC Hgb Hct Plt Count Neutrophils # Lymphocytes # PT 23.4 H INR 2.6 H APTT Potassium Chloride 96 L Carbon Dioxide 31 H BUN 26 H Creatinine Glucose 212 H POC Glucose (mg/dL) 245 H Hemoglobin A1c Total Bilirubin Total Creatine Kinase Total Protein 6.2 L - Diagnostic Findings Chest x-ray: report reviewed, image reviewed CT scan - chest: report reviewed, image reviewed Assessment and Plan Assessment: Assessment Acute hypoxic with hypercarbic respiratory failure requiring supplemental oxygen Interstitial pneumonitis Acute exacerbation of CHF Atrial fibrillation with RVR Coagulopathy Questionable pulmonary hypertension last echo showed RVSP of 48 however right heart cath was negative for true pulmonary hypertension Obstructive sleep apnea Morbid obesity Hypertension BPH Hyperlipidemia Diabetes mellitus type 2 Hyperkalemia Plan Medications have been reviewed and will be continued as ordered. Serum cultures pending. Continue gentle diuresis. Monitor INR. Monitor electrolytes. Continue Sildenafil pre recommendations for PH Dr. Rm. Steroids. Continue with pulmonary hygiene, coughing and deep breathing exercises, and supportive care. Supplemental oxygen to maintain oxygen saturations of 88% or better. Initiate and encourage incentive spirometer and flutter valve. Continue nebulizer treatments, added DuoNeb. GI and DVT prophylaxis. Cardiology recommendations. Patient education provided at length in regards to his noncompliance CPAP use with his CHLOE and correlation with his atrial fibrillation with RVR. We will continue to monitor labs/results and adjust treatment as necessary. Further recommendations pending. Thank you for this consultation we'll follow this patient with you I performed an examination of the patient and discussed their management with the nurse practitioner. I have reviewed the nurse practitioner's note and agree with the documented findings and plan of care.
[2017-11-03 11:39] LABS: Glucose,Whole Blood 196 mg/dL (75-99)
--- NOTE | 2017-11-03 12:32 | P.PN ---
Subjective 64-year-old male patient of Dr. Grissom and Dr. Dominguez with known medical history of hypertension, hyperlipidemia and benign prostatic hypertrophy , chronic back pain, gout, osteoarthritis and borderline diabetes chronic atrial fibrillation, pulmnary hpertension , history of obstructive sleep apnea but unable to tolerate CPAP but currently not using CPAP at home. presents with shortness of breath for a couple of days worsening with activity. He was just admitted from our facility, 10/14/2017, and was treated for interstitial pneumonia, BNP was elevated at that time for acute diastolic CHF, he had a Mycoplasma antigen Danielle antibodies that were negative, he was discharged to home, after diuresing and IV steroids. Last echocardiogram, 10/14, EF 55-60%, LVH, severely dilated left atrium, right ventricle systolic pressure of 48 consistent with moderate pulmonary hypertension. No recent CAT scan for review, no d-dimer however patient is chronically anticoagulated, creatinine baseline would be 1.1-1.3, last hemoglobin A1c of 5.24 September 2017 CO2 levels at that time was 31 He was seen by Dr[address] Solorzano in the office today, and was noted to be dyspneic, with A. fib RVR, patient has blue lips when seen, him a patient slightly metabolic acidotic, looks like he is compensated, INR off 4, creatinine of 1.38 slightly higher than baseline. Patient has a chest x-ray of extensive pulmonary infiltrates, significantly worsened old exam, related to pulmonary fibrosis heart failure or interstitial pneumonia. There is no pleural effusions no cardiomegaly Cardiology is consulted and is currently on Lasix 40 mg every 8 hours 11/03: The patient was seen today, he reports shortness of breath has improved slightly. He completed a chest CT that showed interstitial lung disease and interstitial pneumonia. Will continue on Zosyn, sputum cultures pending, blood cultures show no growth to date. Pulmonary on consult, who recommends to continue Sildenafil, steroids, nebulizer, and Duonebs. Cardiology also on consult, who recommends to continue with IV diuresis, anticoagulation, beta jacinto, and NASIR inhibitor. He continues on 4L nasal canula, o2 saturation remains above 93%. He will also continue with flutter valve and incentive spirometry. Objective - Vital Signs Vital signs: Vital Signs Temp 97.6 F 11/03/17 04:00 Pulse 100 11/03/17 08:24 Resp 18 11/03/17 04:01 BP 97/57 11/03/17 04:00 Pulse Ox 93 L 11/03/17 08:14 Intake & Output 11/02/17 11/03/17 11/03/17 18:59 06:59 18:59 Intake Total 180 320 240 Output Total 800 1925 Balance -620 -1601 240 Weight 163.293 kg 162.2 kg Intake: IV 40 0.9 40 Intake, IV Titration 100 Amount Piperacillin-Tazobactam 3 100 .375 gm In Dextrose/Water 1 50ml.bag @ 12.5 mls/hr IVPB Q8H [facility] Rx#: [id number] Oral 180 180 240 Output: Urine 800 1925 Other: Voiding Method Urinal - Exam - Constitutional General appearance: cooperative, morbidly obese - EENT Eyes: EOMI, PERRLA, dentition normal, normal appearance ENT: NA/AT, normal oropharynx - Neck Neck: normal ROM - Respiratory Respiratory: bilateral: CTA, negative: diminished, dullness - Cardiovascular Rhythm: irregularly irregular Heart sounds: normal: S1, S2 - Gastrointestinal General gastrointestinal: normal bowel sounds, soft - Integumentary Integumentary: decreased turgor, normal - Neurologic Neurologic: CNII-XII intact - Musculoskeletal Musculoskeletal: generalized weakness, strength equal bilaterally - Psychiatric Psychiatric: A&O x's 3, appropriate affect, intact judgment & insight - Labs CBC & Chem 7: 11/02/17 09:43 11/03/17 05:48 Labs: Abnormal Lab Results - Last 24 Hours (Table) 11/02/17 11/02/17 11/03/17 Range/Units 09:43 20:29 05:48 PT 23.4 H (9.0-12.0) sec INR 2.6 H (<1.2) Chloride (98-107) mmol/L Carbon Dioxide (22-30) mmol/L BUN (9-20) mg/dL Glucose (74-99) mg/dL POC Glucose (mg/dL) 126 H (75-99) mg/dL Hemoglobin A1c 6.3 H (4.0-6.0) % Total Protein (6.3-8.2) g/dL 11/03/17 11/03/17 11/03/17 Range/Units 05:48 06:05 11:36 PT (9.0-12.0) sec INR (<1.2) Chloride 96 L (98-107) mmol/L Carbon Dioxide 31 H (22-30) mmol/L BUN 26 H (9-20) mg/dL Glucose 212 H (74-99) mg/dL POC Glucose (mg/dL) 245 H 196 H (75-99) mg/dL Hemoglobin A1c (4.0-6.0) % Total Protein 6.2 L (6.3-8.2) g/dL Microbiology - Last 24 Hours (Table) 11/02/17 09:43 Blood Culture - Preliminary Blood No Growth after 24 hours Assessment and Plan Plan: 1. Acute hypoxic with hypercarbic respiratory failure secondary to interstitial pneumonitis, pulmonary fibrosis is in the differential, also with acute diastolic heart failure. Continue O2 to maintain a pulse ox equal to or greater than 92%. Echocardiogram was recently done during his last admission, reports noted and dictated, consult with pulmonary medicine and cardiology appreciated. Computed tomography scan of the chest high resolution completed, with recent failures involving Rocephin and Zithromax, we'll going to do gram- negative as well as hospital of the back coverage, Zosyn, Solu-Medrol at 60 mg every 6 hours Lasix 40 mg every 8 hours 2. Atrial fibrillation with rapid ventricular response with history of chronic atrial fibrillation. Hold Coumadin was supratherapeutic INR. Metoprolol resumed. Continue to monitor INR. Cardiology and pulmonary medicine on consult. 3. Supratherapeutic INR on Coumadin. Hold Coumadin. PT/INR ordered. No vitamin K needed 4. Secondary Moderate pulmonary hypertension with systolic pressure of 48, currently on diuretics, most like is secondary to obstructive sleep apnea rather than CTEPH, (chronic thromboembolic pulmonary hypertension) as the patient's chronically on anticoagulation, however patient is noncompliant CPAP , followed with Dr. Rm for pulmonary hypertension clinic, patient had a right heart cath which did not show true pulmonary hypertension 5. Obstructive sleep apnea, noncompliance to CPAP secondary to discomfort and PTSD related to its use, pulmonary to evaluate for possible needs outpatient including BiPAP. Advocated encourage to pursue weight loss 6 chronic dependent edema, leg swelling is at baseline, continue diuretics, leg elevation 7. Hypertension. Continue benazepril 20 mg daily and Lopressor 50 mg twice daily, Aldactone 25 mg daily. 8. Acute on chronic diastolic heart failure. Echocardiogram as above. Continue Lasix 40 mg po every 8 hours IV hours and Aldactone 25 mg daily. INR monitoring. Daily weight 9. Benign prostatic hypertrophy. Continue Cardura. Check for postvoid residual 10. Acute renal sufficiency with CK D stage III, monitor creatinine, possibly ATN, avoid nephrotoxins and hypotension 11. Hyperlipidemia. Continue Pravachol. 12. Gout unspecified. Continue colchicine and allopurinol. 13. Chronic low back pain and generalized osteoarthritis, stable. 14. diabetes mellitus type 2 with chemical induced hyperglycemia, no current maintenance medication. Humalog scale DVT prophylaxis. INR supratherapeutic on Coumadin maintenance Gastrointestinal prophylaxis. Pepcid 20 mg by mouth twice a day The above impression and plan of care have been discussed and directed by signing physician. Goldie Crews nurse practitioner acting as scribe for signing physician.
[2017-11-03] MEDS: IPRATROPIUM-ALBUTEROL 3 ML NEB INHALATION SCH ×2 (12:53→20:58)
[2017-11-03 15:07] VITALS: BMI 49.8
[2017-11-03 17:01] LABS: Glucose,Whole Blood 143 mg/dL (75-99)
[2017-11-03] MEDS: PRAVASTATIN SODIUM 20 MG TAB PO SCH (20:01)
[2017-11-03] MEDS: ALLOPURINOL 100 MG TAB PO SCH (20:02)
[2017-11-03] MEDS: MONTELUKAST 10 MG TAB PO SCH (20:02)
[2017-11-03] MEDS: WARFARIN 7.5 MG TAB PO SCH (20:02)
[2017-11-03] MEDS: DOXAZOSIN 4 MG TAB PO SCH (20:02)
[2017-11-03 21:17] LABS: Glucose,Whole Blood 181 mg/dL (75-99)
[2017-11-03] MEDS ORDERED: methylPREDNISolone SOD SUCCI 125 MG/2 ML VIAL ONE (23:39)
[2017-11-03] MEDS ORDERED: FUROSEMIDE 10 MG/ML 4 ML VIAL ONE (23:39)
[2017-11-04] MEDS: PIPERACILLIN-TAZOBACTAM 3.375 GM in DEXTROSE/WATER 1 50ML.BAG IVPB SCH ×3 (05:21→21:10)
[2017-11-04] MEDS: FUROSEMIDE 10 MG/ML 4 ML VIAL IV SCH ×4 (05:21→23:19)
[2017-11-04] MEDS: methylPREDNISolone SOD SUCCI 125 MG/2 ML VIAL IV SCH ×3 (05:21→08:28)
[2017-11-04 06:08] LABS: INR 3.2 (<1.2); Prothrombin Time 28.4 sec (9.0-12.0)
[2017-11-04 06:09] LABS: Glucose,Whole Blood 218 mg/dL (75-99)
[2017-11-04 06:32] LABS: Albumin 3.3 g/dL (3.5-5.0); Calcium 8.8 mg/dL (8.4-10.2); Potassium 3.9 mmol/L (3.5-5.1); Total Bilirubin 0.6 mg/dL (0.2-1.3); Total Protein 5.9 g/dL (6.3-8.2)
[2017-11-04] MEDS: INSULIN ASPART 100 UNIT/ML 1 ML 10 ML VIAL SQ SCH ×4 (06:58→21:20)
[2017-11-04] MEDS: BUDESONIDE 1 MG/2 ML NEBU INHALATION SCH ×2 (07:05→19:32)
[2017-11-04] MEDS: IPRATROPIUM-ALBUTEROL 3 ML NEB INHALATION SCH ×3 (07:05→19:32)
[2017-11-04] MEDS: COLCHICINE 0.6 MG EACH PO SCH ×2 (08:28→21:11)
[2017-11-04] MEDS: METOPROLOL TARTRATE 50 MG TAB PO SCH ×2 (08:28→21:11)
[2017-11-04] MEDS: guaiFENesin 600 MG TABLET.ER PO SCH ×2 (08:29→21:11)
[2017-11-04] MEDS: SPIRONOLACTONE 25 MG TAB PO SCH (08:30)
[2017-11-04] MEDS: SILDENAFIL 20 MG TAB PO SCH ×3 (08:30→21:11)
[2017-11-04] MEDS: FAMOTIDINE 20 MG TAB PO SCH ×2 (08:30→21:11)
[2017-11-04] MEDS: DILTIAZEM ORAL 30 MG TAB PO SCH ×3 (08:31→21:11)
[2017-11-04] MEDS: LISINOPRIL 20 MG TAB PO SCH (08:31)
--- NOTE | 2017-11-04 10:42 | P.PN ---
<Anca Bustos E - Last Filed: 11/04/17 10:36> Subjective Progress Note Date: 11/04/17 HPI: This is a 72-year-old male patient well known to our services being seen and examined and evaluated today for consultation. This patient originally came into the emergency department complaining of aggressive worsening shortness of breath and was found to also have A. fib with RVR. The patient was recently in the hospital on 10/14/2017 was treated for his interstitial pneumonia and acute diastolic exacerbation of CHF. Patient was discharged home after diuresis IV steroids and antibiotics. During his emergency room evaluation yesterday the patient was noted to have an INR of 4.2, WBC count of 15.2, potassium of 5.2, BUN 22, creatinine 1.3. Influenza swab was negative. The patient was tachycardic and Neck and required supplemental oxygen to maintain oxygen saturations greater then 90%. His last echocardiogram was 10/14/2017 showed an EF of 55-60% with an RVSP of 48. Patient is also known to have a significant history of severe obstructive sleep apnea however is noncompliant and refuses to use CPAP. Upon examination today the patient is resting up in bed on 4 L of supplemental oxygen via nasal cannula. He continues to have shortness of breath with any exertion and activity. He does have a persistent cough with brownish avila sputum. Chest x-ray was reviewed and does show persistent CHF exacerbation and cardiomegaly with mild bilateral central A velar and interstitial edema. He did undergo a CTA this morning of the chest which did show findings compatible with interstitial lung disease and may be indicative of interstitial pneumonia. Upper lobe groundglass opacities to suggest active airspace disease. He was on a Cardizem drip previously for his A. fib with RVR however this has been transitioned to oral by cardiology, heart rate is currently controlled. Interval History: 11/04/17- patient being seen examined and evaluated today on rounds. Patient is resting up in bed and continues on 3 L of supplemental oxygen via nasal cannula. He does continue to have shortness of breath with exertion and activity, however slowly improving. He is afebrile All labs and reports have been reviewed. Objective - Vital Signs Vital signs: Vital Signs Temp 96.8 F L 11/04/17 08:15 Pulse 120 H 11/04/17 08:15 Resp 18 11/04/17 08:15 BP 104/66 11/04/17 08:15 Pulse Ox 91 L 11/04/17 08:15 Intake & Output 11/03/17 11/04/17 11/04/17 18:59 06:59 18:59 Intake Total 540 180 240 Output Total 500 700 Balance 40 -520 240 Weight 162.2 kg 159.8 kg Intake: IV 180 0.9 180 Oral 540 240 Output: Urine 500 700 Other: Voiding Method Urinal Urinal Urinal # Voids 1 1 # Bowel Movements 0 - Exam GENERAL EXAM: Alert, morbidly obese, comfortable in no apparent distress. HEAD: Normocephalic. EYES: Normal reaction of pupils, equal size. NOSE: Clear with pink turbinates. THROAT: No erythema or exudates. NECK: No masses, no JVD. CHEST: No chest wall deformity. LUNGS: Diminished air entry bilaterally, some bilateral crackles. Bases diminished CVS: S1 and S2 normal with no audible mumurs, regular rhythm. ABDOMEN: No hepatosplenomegaly, normal bowel sounds, no guarding or rigidity. EXTREMITIES: Chronic bilateral lower extremity skin changes, trace edema noted, pedal pulses palpable. CENTRAL NERVOUS SYSTEM: No focal deficits, tone is normal in all 4 extremities. - Labs CBC & Chem 7: 11/02/17 09:43 11/04/17 05:43 Labs: Abnormal Lab Results - Last 24 Hours (Table) 11/03/17 11/03/17 11/03/17 Range/Units 11:36 16:46 21:16 PT (9.0-12.0) sec INR (<1.2) BUN (9-20) mg/dL Creatinine (0.66-1.25) mg/dL Glucose (74-99) mg/dL POC Glucose (mg/dL) 196 H 143 H 181 H (75-99) mg/dL Total Protein (6.3-8.2) g/dL Albumin (3.5-5.0) g/dL 11/04/17 11/04/17 11/04/17 Range/Units 05:43 05:43 06:05 PT 28.4 H (9.0-12.0) sec INR 3.2 H (<1.2) BUN 35 H (9-20) mg/dL Creatinine 1.27 H (0.66-1.25) mg/dL Glucose 234 H (74-99) mg/dL POC Glucose (mg/dL) 218 H (75-99) mg/dL Total Protein 5.9 L (6.3-8.2) g/dL Albumin 3.3 L (3.5-5.0) g/dL Microbiology - Last 24 Hours (Table) 11/03/17 08:19 Gram Stain - Preliminary Sputum 11/02/17 09:43 Blood Culture - Preliminary Blood No Growth after 24 hours Assessment and Plan Assessment: Assessment Acute hypoxic with hypercarbic respiratory failure requiring supplemental oxygen Doubtful Interstitial pneumonitis, groundglass opacities more consistent with CHF Acute exacerbation of CHF Atrial fibrillation with RVR Coagulopathy Questionable pulmonary hypertension last echo showed RVSP of 48 however right heart cath was negative for true pulmonary hypertension Obstructive sleep apnea Morbid obesity Hypertension BPH Hyperlipidemia Diabetes mellitus type 2 Hyperkalemia Plan Repeat chest x-ray in the morning. Medications have been reviewed and will be continued as ordered. Steroids have been tapered. Serum cultures pending. Continue gentle diuresis. Monitor INR. Monitor electrolytes. Continue Sildenafil pre recommendations for PH Dr. Rm. Continue with pulmonary hygiene, coughing and deep breathing exercises, and supportive care. Supplemental oxygen to maintain oxygen saturations of 88% or better. Initiate and encourage incentive spirometer and flutter valve. Continue nebulizer treatments, added DuoNeb. GI and DVT prophylaxis. Cardiology recommendations. Patient education provided at length in regards to his noncompliance CPAP use with his CHLOE and correlation with his atrial fibrillation with RVR. We will continue to monitor labs/results and adjust treatment as necessary. Further recommendations pending. Thank you for this consultation we'll follow this patient with you I performed an examination of the patient and discussed their management with the nurse practitioner. I have reviewed the nurse practitioner's note and agree with the documented findings and plan of care. <Joyce Wilson - Last Filed: 11/04/17 10:58> Objective - Vital Signs Vital signs: Vital Signs Temp 96.8 F L 11/04/17 08:15 Pulse 120 H 11/04/17 08:15 Resp 18 11/04/17 08:15 BP 104/66 11/04/17 08:15 Pulse Ox 91 L 11/04/17 08:15 Intake & Output 11/03/17 11/04/17 11/04/17 18:59 06:59 18:59 Intake Total 540 180 240 Output Total 500 700 Balance 40 -520 240 Weight 162.2 kg 159.8 kg Intake: IV 180 0.9 180 Oral 540 240 Output: Urine 500 700 Other: Voiding Method Urinal Urinal Urinal # Voids 1 1 # Bowel Movements 0 - Labs CBC & Chem 7: 11/02/17 09:43 11/04/17 05:43 Labs: Abnormal Lab Results - Last 24 Hours (Table) 11/03/17 11/03/17 11/03/17 Range/Units 11:36 16:46 21:16 PT (9.0-12.0) sec INR (<1.2) BUN (9-20) mg/dL Creatinine (0.66-1.25) mg/dL Glucose (74-99) mg/dL POC Glucose (mg/dL) 196 H 143 H 181 H (75-99) mg/dL Total Protein (6.3-8.2) g/dL Albumin (3.5-5.0) g/dL 11/04/17 11/04/17 11/04/17 Range/Units 05:43 05:43 06:05 PT 28.4 H (9.0-12.0) sec INR 3.2 H (<1.2) BUN 35 H (9-20) mg/dL Creatinine 1.27 H (0.66-1.25) mg/dL Glucose 234 H (74-99) mg/dL POC Glucose (mg/dL) 218 H (75-99) mg/dL Total Protein 5.9 L (6.3-8.2) g/dL Albumin 3.3 L (3.5-5.0) g/dL Microbiology - Last 24 Hours (Table) 11/03/17 08:19 Gram Stain - Preliminary Sputum 11/02/17 09:43 Blood Culture - Preliminary Blood No Growth after 24 hours Assessment and Plan Assessment: Patient seen and examined. Doubt interstitial pneumonia/pneumonitis, GGO most consistent with AECHF exacerbation and pulmonary edema. Patient is non compliant with CPAP. Continue Revatio for pulmonary hypertension. Diuresis. Repeat CXR in AM. Continue Duonebs, Pulmicort, Solumedrol taper, GI and DVT prophylaxis, Singulair. Monitor renal function. Patient has no history of ILD. ~Joyce Wilson DO
--- NOTE | 2017-11-04 11:06 | P.PN ---
Subjective 64-year-old male patient of Dr. Grissom and Dr. Dominguez with known medical history of hypertension, hyperlipidemia and benign prostatic hypertrophy , chronic back pain, gout, osteoarthritis and borderline diabetes chronic atrial fibrillation, pulmnary hpertension , history of obstructive sleep apnea but unable to tolerate CPAP but currently not using CPAP at home. presents with shortness of breath for a couple of days worsening with activity. He was just admitted from our facility, 10/14/2017, and was treated for interstitial pneumonia, BNP was elevated at that time for acute diastolic CHF, he had a Mycoplasma antigen Danielle antibodies that were negative, he was discharged to home, after diuresing and IV steroids. Last echocardiogram, 10/14, EF 55-60%, LVH, severely dilated left atrium, right ventricle systolic pressure of 48 consistent with moderate pulmonary hypertension. No recent CAT scan for review, no d-dimer however patient is chronically anticoagulated, creatinine baseline would be 1.1-1.3, last hemoglobin A1c of 5.24 September 2017 CO2 levels at that time was [address] He was seen [address] Dr[address] Solorzano in the office today, and was noted to be dyspneic, with A. fib RVR, patient has blue lips when seen, him a patient slightly metabolic acidotic, looks like he is compensated, INR off 4, creatinine of 1.38 slightly higher than baseline. Patient has a chest x-ray of extensive pulmonary infiltrates, significantly worsened old exam, related to pulmonary fibrosis heart failure or interstitial pneumonia. There is no pleural effusions no cardiomegaly Cardiology is consulted and is currently on Lasix 40 mg every 8 hours 11/03: The patient was seen today, he reports shortness of breath has improved slightly. He completed a chest CT that showed interstitial lung disease and interstitial pneumonia. Will continue on Zosyn, sputum cultures pending, blood cultures show no growth to date. Pulmonary on consult, who recommends to continue Sildenafil, steroids, nebulizer, and Duonebs. Cardiology also on consult, who recommends to continue with IV diuresis, anticoagulation, beta jacinto, and NASIR inhibitor. He continues on 4L nasal canula, o2 saturation remains above 93%. He will also continue with flutter valve and incentive spirometry. 11/04: Patient was evaluated sitting up in the bed with family at bedside. He reports breathing has improved slightly, still has productive cough. Infectious disease consulted for interstitial pneumonitis. He will continue on Zosyn, blood and sputum cultures are still pending. Heart rate has been well controlled, low 100s, he is down approximately 3 kg from admission weight. Objective - Vital Signs Vital signs: Vital Signs Temp 97.1 F L 11/04/17 04:00 Pulse 103 H 11/04/17 07:15 Resp 18 11/04/17 07:05 BP 98/71 11/04/17 04:00 Pulse Ox 93 L 11/04/17 04:00 Intake & Output 11/03/17 11/04/17 11/04/17 18:59 06:59 18:59 Intake Total 540 180 240 Output Total 500 700 Balance 40 -520 240 Weight 162.2 kg 159.8 kg Intake: IV 180 0.9 180 Oral 540 240 Output: Urine 500 700 Other: Voiding Method Urinal Urinal # Voids 1 1 # Bowel Movements 0 - Exam - Constitutional General appearance: cooperative, morbidly obese - EENT Eyes: EOMI, PERRLA, dentition normal, normal appearance ENT: NA/AT, normal oropharynx - Neck Neck: normal ROM - Respiratory Respiratory: bilateral: slight wheeze, negative: diminished, dullness - Cardiovascular Rhythm: irregularly irregular Heart sounds: normal: S1, S2 - Gastrointestinal General gastrointestinal: normal bowel sounds, soft - Integumentary Integumentary: decreased turgor, normal - Neurologic Neurologic: CNII-XII intact - Musculoskeletal Musculoskeletal: generalized weakness, strength equal bilaterally - Psychiatric Psychiatric: A&O x's 3, appropriate affect, intact judgment & insight - Labs CBC & Chem 7: 11/02/17 09:43 11/04/17 05:43 Labs: Abnormal Lab Results - Last 24 Hours (Table) 11/03/17 11/03/17 11/03/17 Range/Units 11:36 16:46 21:16 PT (9.0-12.0) sec INR (<1.2) BUN (9-20) mg/dL Creatinine (0.66-1.25) mg/dL Glucose (74-99) mg/dL POC Glucose (mg/dL) 196 H 143 H 181 H (75-99) mg/dL Total Protein (6.3-8.2) g/dL Albumin (3.5-5.0) g/dL 11/04/17 11/04/1718 Range/Units 05:43 05:43 06:05 PT 28.4 H (9.0-12.0) sec INR 3.2 H (<1.2) BUN 35 H (9-20) mg/dL Creatinine 1.27 H (0.66-1.25) mg/dL Glucose 234 H (74-99) mg/dL POC Glucose (mg/dL) 218 H (75-99) mg/dL Total Protein 5.9 L (6.3-8.2) g/dL Albumin 3.3 L (3.5-5.0) g/dL Microbiology - Last 24 Hours (Table) 11/03/17 08:19 Gram Stain - Preliminary Sputum 11/02/17 09:43 Blood Culture - Preliminary Blood No Growth after 24 hours Assessment and Plan Plan: 1. Acute hypoxic with hypercarbic respiratory failure secondary to interstitial pneumonitis, pulmonary fibrosis is in the differential, also with acute diastolic heart failure. Continue O2 to maintain a pulse ox equal to or greater than 92%. Echocardiogram was recently done during his last admission, reports noted and dictated, consult with pulmonary medicine and cardiology appreciated. Computed tomography scan of the chest high resolution completed, with recent failures involving Rocephin and Zithromax, we'll going to do gram- negative as well as hospital of the back coverage, Zosyn, Solu-Medrol at 60 mg every 6 hours Lasix 40 mg every 8 hours, will continue Zosyn, infectious disease consulted for interstitial pneumonitis. 2. Atrial fibrillation with rapid ventricular response with history of chronic atrial fibrillation. Hold Coumadin was supratherapeutic INR. Metoprolol resumed. Continue to monitor INR. Cardiology and pulmonary medicine on consult. 3. Supratherapeutic INR on Coumadin. Hold Coumadin. PT/INR ordered. No vitamin K needed 4. Secondary Moderate pulmonary hypertension with systolic pressure of 48, currently on diuretics, most like is secondary to obstructive sleep apnea rather than CTEPH, (chronic thromboembolic pulmonary hypertension) as the patient's chronically on anticoagulation, however patient is noncompliant CPAP , followed with Dr. Rm for pulmonary hypertension clinic, patient had a right heart cath which did not show true pulmonary hypertension 5. Obstructive sleep apnea, noncompliance to CPAP secondary to discomfort and PTSD related to its use, pulmonary to evaluate for possible needs outpatient including BiPAP. Advocated encourage to pursue weight loss 6 chronic dependent edema, leg swelling is at baseline, continue diuretics, leg elevation, down approximately 3 kg from admission weight. 7. Hypertension. Continue benazepril 20 mg daily and Lopressor 50 mg twice daily, Aldactone 25 mg daily. 8. Acute on chronic diastolic heart failure. Echocardiogram as above. Continue Lasix 40 mg po every 8 hours IV hours and Aldactone 25 mg daily. INR monitoring. Daily weight 9. Benign prostatic hypertrophy. Continue Cardura. Check for postvoid residual 10. Acute renal sufficiency with CK D stage III, monitor creatinine, possibly ATN, avoid nephrotoxins and hypotension 11. Hyperlipidemia. Continue Pravachol. 12. Gout unspecified. Continue colchicine and allopurinol. 13. Chronic low back pain and generalized osteoarthritis, stable. 14. diabetes mellitus type 2 with chemical induced hyperglycemia, no current maintenance medication. Humalog scale DVT prophylaxis. INR supratherapeutic on Coumadin maintenance Gastrointestinal prophylaxis. Pepcid 20 mg by mouth twice a day The above impression and plan of care have been discussed and directed by signing physician. Goldie Crews nurse practitioner acting as scribe for signing physician.
[2017-11-04 11:34] LABS: Glucose,Whole Blood 156 mg/dL (75-99)
[2017-11-04] MEDS: methylPREDNISolone SOD SUCCI 40 MG/ML 1 ML VIAL IV SCH ×2 (15:38→23:18)
--- NOTE | 2017-11-04 15:42 | P.PN ---
Subjective Progress Note Date: 11/04/17 This is a 72-year-old gentleman who follows regularly with Dr. Dominguez in the office. He has known history of chronic persistent atrial fibrillation, hypertension, hyperlipidemia, sleep apnea, who was recently discharged home from the hospital, after being admitted with respiratory failure secondary to pneumonia. According to the patient, he's just been progressively more and more short of breath to the point where last evening he states he could hardly breathe at all. Positive PND and orthopnea. He does state he is still coughing obtain sputum. Chest x-ray reveals CHF exacerbation with mild bilateral interstitial edema. Blood pressure 110/60, heart rate in the 1 teens to 120s, 88% on 4 L of oxygen. White blood cell count 15.2, hemoglobin 12.5, platelet count 112. INR 4.2, potassium 5.2, BUN 22, creatinine 1.3. BNP level 2980. Troponin 0.029. Echocardiogram with Doppler study performed in September revealed an ejection fraction of 55-60%. At the time of my examination, patient was still quite short of breath. He was initiated on IV Lasix in the emergency room, 40 mg every 8 hourly. He was also resumed on his lisinopril 20 mg daily, metoprolol 100 mg twice a day, pravastatin 20 mg, Aldactone 25 mg daily. Patient is currently on IV Cardizem drip at 5 mg per hour. 11/04/2017 Patient seen and examined this morning, breathing is improving overall. Weight is down 3 kg, creatinine 1.2, INR 3.2 today. Continues to be on IV Lasix. Objective - Vital Signs Vital signs: Vital Signs Temp 96.6 F L 11/04/17 11:30 Pulse 98 11/04/17 13:31 Resp 18 11/04/17 11:30 BP 88/55 11/04/17 11:30 Pulse Ox 95 11/04/17 11:30 Intake & Output 11/03/17 11/04/17 11/04/17 18:59 06:59 18:59 Intake Total 540 180 480 Output Total 500 700 800 Balance 40 -520 -320 Weight 162.2 kg 159.8 kg Intake: IV 180 0.9 180 Oral 540 480 Output: Urine 500 700 800 Other: Voiding Method Urinal Urinal Urinal # Voids 1 1 1 # Bowel Movements 0 0 - Exam PHYSICAL EXAMINATION: HEENT: Head is atraumatic, normocephalic. Pupils equal, round. Neck is supple. There is no elevated jugular venous pressure. HEART EXAMINATION: Heart S1, S2 irregularly irregular systolic ejection murmur is heard. . No murmur or gallop heard. CHEST EXAMINATION: Lungs reveal diminished air entry to the bases with crackles heard bilaterally. ABDOMEN: Soft, obese, nontender. Bowel sounds are heard. No organomegaly noted. EXTREMITIES:[ 2+ peripheral pulses with 1+ evidence of peripheral edema , evidence of bilateral venous stasis. NEUROLOGIC patient is awake, alert and oriented -3. - Labs CBC & Chem 7: 11/02/17 09:43 11/04/17 05:43 Labs: Abnormal Lab Results - Last 24 Hours (Table) 11/03/17 11/03/17 11/04/17 Range/Units 16:46 21:16 05:43 PT 28.4 H (9.0-12.0) sec INR 3.2 H (<1.2) BUN (9-20) mg/dL Creatinine (0.66-1.25) mg/dL Glucose (74-99) mg/dL POC Glucose (mg/dL) 143 H 181 H (75-99) mg/dL Total Protein (6.3-8.2) g/dL Albumin (3.5-5.0) g/dL 11/04/17 11/04/17 11/04/17 Range/Units 05:43 06:05 11:32 PT (9.0-12.0) sec INR (<1.2) BUN 35 H (9-20) mg/dL Creatinine 1.27 H (0.66-1.25) mg/dL Glucose 234 H (74-99) mg/dL POC Glucose (mg/dL) 218 H 156 H (75-99) mg/dL Total Protein 5.9 L (6.3-8.2) g/dL Albumin 3.3 L (3.5-5.0) g/dL Microbiology - Last 24 Hours (Table) 11/02/17 09:43 Blood Culture - Preliminary Blood No Growth after 48 hours 11/03/17 08:19 Gram Stain - Preliminary Sputum Assessment and Plan Plan: Assessment and plan #1 diastolic congestive heart failure, acute on chronic. Most recent echocardiogram with Doppler study was performed in September 2017 revealed an ejection fraction of 55-60%. Moderate pulmonary hypertension. #2 chronic persistent atrial fibrillation on Coumadin for anticoagulation #3 hypertension #4 hyperlipidemia #5 obesity #6 obstructive sleep apnea #7 borderline hyperlipidemia #8 prior history of smoking #9 recent right cardiac catheterization which showed no evidence of pulmonary hypertension. Plan From cardiology's perspective, we will not repeat an echocardiogram with Doppler study as the patient had one less than a month ago. We will continue current dose of IV Lasix 40 mg every 8 hourly. Continue to monitor intake and output along with daily weights. We will continue lisinopril 20 mg daily, metoprolol 100 mg by mouth twice a day, pravastatin 20 mg daily, Aldactone 25 mg daily. DNP note has been reviewed, I agree with a documented findings and plan of care. Patient was seen and examined.
[2017-11-04 16:29] LABS: Glucose,Whole Blood 163 mg/dL (75-99)
[2017-11-04] MEDS: WARFARIN 7.5 MG TAB PO SCH (17:17)
[2017-11-04] MEDS: MONTELUKAST 10 MG TAB PO SCH (21:11)
[2017-11-04] MEDS: DOXAZOSIN 4 MG TAB PO SCH (21:11)
[2017-11-04] MEDS: PRAVASTATIN SODIUM 20 MG TAB PO SCH (21:11)
[2017-11-04] MEDS: ALLOPURINOL 100 MG TAB PO SCH (21:11)
[2017-11-04 21:17] LABS: Glucose,Whole Blood 256 mg/dL (75-99)
--- NOTE | 2017-11-04 22:15 | P.CONS ---
History of Present Illness - Reason for Consult Consult date: 11/04/17 - Chief Complaint Shortness of breath - History of Present Illness 72-year-old male presents to Hospital with complaints of increasing shortness of breath that has rapidly increased over the last day. He was seen by his primary care physician and admitted to hospital with an acute exacerbation of his CHF as well as evidence of cardiac dysrhythmia, with atrial fibrillation with a rapid ventricular response. At admission the patient was profoundly short of breath and was found that he was noncompliant with the treatment of his obstructive sleep apnea home by not using his home CPAP. He also has difficulty with significant obesity has had no significant weight loss over time. The patient relates that today fortunately starting to feel better. He is considerably less short of breath than he was. Since the recent hospitalization he is continuing to have difficulties with his respiratory status. He however denies significant fevers, chills or rigors. He has chronic cough without significant sputum production. He has not had a change in his sputum production. He also does not have hemoptysis despite his highly therapeutic INR, anticoagulation is for his chronic atrial fibrillation. With controls of atrial fibrillation and diuresis he is starting to feel considerably better. Review of Systems HEENT:Denies headache or acute visual change. Denies sinus or mouth discomforts. Denies neck stiffness or pain. Denies significant oral cavity pain. Denies difficulty on swallowing. Lungs: As per the HPI is significant shortness of breath without significant sputum production or hemoptysis Cardiovascular: Patient is not having chest pain, but does have the stiffness shortness of breath he had orthopnea PND dyspnea on exertion and no syncope Gastrointestinal:Denies nausea, vomiting, diarrhea, constipation, hematemesis, melena, hematochezia. No no significant change of bowel habit noticed. Musculoskeletal: denies significant myalgias or arthralgias. No new joint swelling. Denies new back pain. Skin: Denies new rash or lesions. No new ulcers or wounds are related. Lower extremity edema occurring Neuro: Denies headache or visual change. Denies any new onset weakness or difficulty with ambulation. Denies falls or seizures. Psychiatric:Denies anxiety or depression. Endocrine: Significant fatigue and has had weight gain Past Medical History Past Medical History: Atrial Fibrillation, Heart Failure, GERD/Reflux, Hyperlipidemia, Hypertension, Osteoarthritis (OA), Prostate Disorder, Sleep Apnea/CPAP/BIPAP Additional Past Medical History / Comment(s): Pt recently admitted to [facility] on with acute respiratory failure 2ndary to interstitial pneumonia/sepsis and CHF. Other hx: Chronic Afib, CHLOE without device, chronic back pain, gout. History of Any Multi-Drug Resistant Organisms: None Reported Past Surgical History: Cholecystectomy, Joint Replacement Additional Past Surgical History / Comment(s): 02/19/17 diagnostic cardiac cath, right total knee arthroplasty, ventral hernia repair Past Anesthesia/Blood Transfusion Reactions: No Reported Reaction Additional Psychological History / Comment(s): lives with the family and the family home. Noncompliant with his CPAP. Not currently a tobacco smoker. Retired. No experience. No animal exposures Smoking Status: Former smoker - Past Family History Father Family Medical History: No Reported History Additional Family Medical History / Comment(s): Dad at age 89 from stroke. Mother Family Medical History: No Reported History Additional Family Medical History / Comment(s): Mother is alive at age 90 with dementia. Sister(s) Additional Family Medical History / Comment(s): Patient has 2 sisters with no major medical problems. Patient does not have any brothers. Patient has 2 adult children with no major medical problems. Medications and Allergies Home Medications and Allergies Comment(s): Current Medications Acetaminophen (Tylenol Tab) 650 mg PO Q6HR PRN PRN Reason: Mild Pain or Fever > 100.5 Albuterol Sulfate (Ventolin Nebulized) 2.5 mg INHALATION RT-QID PRN PRN Reason: Shortness Of Breath Last Admin: 11/03/17 08:13 Dose: 2.5 mg Albuterol/Ipratropium (Duoneb 0.5 Mg-3 Mg/3 Ml Soln) 3 ml INHALATION RT-TID [facility] Last Admin: 11/04/17 19:32 Dose: 3 ml Allopurinol (Zyloprim) 100 mg PO HS [facility] Last Admin: 11/04/17 21:11 Dose: 100 mg Budesonide (Pulmicort) 1 mg INHALATION RT-BID [facility] Last Admin: 11/04/17 19:32 Dose: 1 mg Colchicine (Colcrys) 0.6 mg PO BID [facility] Last Admin: 11/04/17 21:11 Dose: 0.6 mg Diltiazem HCl (Cardizem Oral) 30 mg PO TID [facility] Last Admin: 04/18/18 21:11 Dose: 30 mg Doxazosin Mesylate (Cardura) 8 mg PO HS [facility] Last Admin: 11/04/17 21:11 Dose: 8 mg Famotidine (Pepcid) 20 mg PO BID [facility] Last Admin: 11/04/17 21:11 Dose: 20 mg Furosemide (Lasix) 40 mg IV Q8HR [facility] Last Admin: 11/04/17 15:38 Dose: 40 mg Guaifenesin (Mucinex) 600 mg PO Q12HR [facility] Last Admin: 11/04/17 21:11 Dose: 600 mg Piperacillin/Tazobactam/ (Dextrose 3.375 gm/ IV Solution) 50 mls @ 12.5 mls/hr IVPB Q8H [facility] Last Admin: 11/04/17 21:10 Dose: 12.5 mls/hr Insulin Aspart (Novolog) 0 unit SQ ACHS [facility] PRN Reason: Protocol Last Admin: 11/04/17 21:20 Dose: 8 unit Lisinopril (Zestril) 20 mg PO DAILY [facility] Last Admin: 11/04/17 08:31 Dose: 20 mg Methylprednisolone Sodium Succinate (Solu-Medrol) 40 mg IV Q8HR [facility] Last Admin: 11/04/17 15:38 Dose: 40 mg Metoprolol Tartrate (Lopressor) 100 mg PO BID [facility] Last Admin: 11/04/17 21:11 Dose: 100 mg Montelukast Sodium (Singulair) 10 mg PO HS [facility] Last Admin: 11/04/17 21:11 Dose: 10 mg Naloxone HCl (Narcan) 0.2 mg IV Q2M PRN PRN Reason: Opioid Reversal Pravastatin Sodium (Pravachol) 20 mg PO HS [facility] Last Admin: 11/04/17 21:11 Dose: 20 mg Sildenafil Citrate (Revatio) 20 mg PO TID [facility] Last Admin: 11/04/17 21:11 Dose: 20 mg Spironolactone (Aldactone) 25 mg PO DAILY [facility] Last Admin: 11/04/17 08:30 Dose: 25 mg Warfarin Sodium (Coumadin) 5 mg PO Fr@1800 [facility] Warfarin Sodium (Coumadin) 7.5 mg PO [id number]@1800 [facility] Last Admin: 11/04/17 17:17 Dose: 7.5 mg Home Medications Medication Instructions Recorded Confirmed Type Allopurinol [Zyloprim] 100 mg PO HS 12/10/15 11/02/17 History Potassium Chloride [Klor-Con 10] 10 meq PO HS 12/10/15 11/02/17 History Pravastatin Sodium [Pravachol] 20 mg PO HS 12/10/15 11/02/17 History Spironolactone [Aldactone] 25 mg PO DAILY 12/10/15 11/02/17 History Benazepril HCl [Lotensin] 20 mg PO DAILY 09/27/16 11/02/17 History Colchicine [Colcrys] 0.6 mg PO BID 09/27/16 11/02/17 History Doxazosin Mesylate [Cardura] 8 mg PO HS 09/27/16 11/02/17 History Sildenafil [Revatio] 20 mg PO TID #90 tab 10/01/16 11/02/17 Rx Famotidine [Pepcid] 20 mg PO BID #30 tab 10/15/17 11/02/17 Rx Furosemide [Lasix] 40 mg PO BID@0900,1600 #60 tab 10/15/17 11/02/17 Rx Metoprolol Tartrate [Lopressor] 100 mg PO BID #120 tab 10/16/17 11/02/17 Rx Albuterol Inhaler [Ventolin Hfa 2 puff INHALATION RT-QID PRN 11/02/17 11/02/17 History Inhaler] Warfarin Sodium [Coumadin] 5 mg PO FR 11/02/17 11/02/17 History Warfarin Sodium [Coumadin] 7.5 mg PO SUMOTUWETHSA 11/02/17 11/02/17 History Allergies Allergy/AdvReac Type Severity Reaction Status Date / Time No Known Allergies Allergy Verified 11/02/17 10:41 Physical Exam Vitals: Vital Signs Temp Pulse Pulse Resp BP Pulse Ox 11/04/17 20:00 97.0 F L 106 H 18 114/61 94 L 11/04/17 19:50 108 H 11/04/17 19:33 105 H 11/04/17 15:35 96.5 F L 94 18 96/66 93 L 11/04/17 13:31 98 11/04/17 13:21 98 11/04/17 11:30 96.6 F L 89 18 88/55 95 11/04/17 08:15 96.8 F L 120 H 18 104/66 91 L 11/04/17 08:00 120 H 18 11/04/17 07:15 103 H 11/04/17 07:05 103 H 18 11/04/17 04:00 97.1 F L 96 17 98/71 93 L 11/04/17 00:00 97.0 F L 104 H 18 104/59 91 L Intake and Output 11/04/17 11/04/17 11/04/17 06:59 14:59 22:59 Intake Total 160 480 480 Output Total 700 800 400 Balance -540 -320 80 Intake: IV 160 0.9 160 Oral 480 480 Output: Urine 700 800 400 Other: Voiding Method Urinal Urinal Urinal # Voids 1 1 # Bowel Movements 0 Weight 159.8 kg 72-year-old male who has superobesity, relates he is less short of breath and admission but still feels quite poorly HEENT: Anicteric conjunctiva are pink and moist nasal mucosa grossly intact without significant lesions, there is no thrush. Neck: The neck is supple without significant lymphadenopathy or thyromegaly. Lungs: Symmetrical air entry was noted, scattered expiratory wheezes are noted, few basilar crackles are heard no dullness or egophony is appreciated Heart: Irregularly irregular with an audible S1 and S2 soft S4 There is no significant murmur click or rub, PMI was nondisplaced. Abdomen: Obese, Positive bowel sounds soft and nontender without palpable masses or organomegaly. There was no guarding or rebound. Extremities: Upper extremity revealed evidence ofthickened lesions pulses were 2 + and symmetric. Laboratories have chronic venous stasis with edema with no open ulcerations, but chronic hemosiderin staining Neuro: Awake alert oriented to person place and time. There are no acute new gross focal sensory motor deficits. Results CBC & Chem 7: 11/02/17 09:43 11/04/17 05:43 Labs: Abnormal Lab Results - Last 24 Hours (Table) 11/04/17 11/04/17 11/04/17 Range/Units 05:43 05:43 06:05 PT 28.4 H (9.0-12.0) sec INR 3.2 H (<1.2) BUN 35 H (9-20) mg/dL Creatinine 1.27 H (0.66-1.25) mg/dL Glucose 234 H (74-99) mg/dL POC Glucose (mg/dL) 218 H (75-99) mg/dL Total Protein 5.9 L (6.3-8.2) g/dL Albumin 3.3 L (3.5-5.0) g/dL 11/04/17 11/04/17 11/04/17 Range/Units 11:32 16:28 21:16 PT (9.0-12.0) sec INR (<1.2) BUN (9-20) mg/dL Creatinine (0.66-1.25) mg/dL Glucose (74-99) mg/dL POC Glucose (mg/dL) 156 H 163 H 256 H (75-99) mg/dL Total Protein (6.3-8.2) g/dL Albumin (3.5-5.0) g/dL Microbiology - Last 24 Hours (Table) 11/02/17 09:43 Blood Culture - Preliminary Blood No Growth after 48 hours Laboratory Results WBC 15.2 k/uL (3.8-10.6) H 11/02/17 09:43 RBC 4.44 m/uL (4.30-5.90) 11/02/17 09:43 Hgb 12.5 gm/dL (13.0-17.5) L 11/02/17 09:43 Hct 38.2 % (39.0-53.0) L 11/02/17 09:43 MCV 86.0 fL (80.0-100.0) 11/02/17 09:43 MCH 28.2 pg (25.0-35.0) 11/02/17 09:43 MCHC 32.8 g/dL (31.0-37.0) 11/02/17 09:43 RDW 13.8 % (11.5-15.5) 11/02/17 09:43 Plt Count 112 k/uL (150-450) L 11/02/17 09:43 Neutrophils % 88 % 11/02/17 09:43 Lymphocytes % 4 % 11/02/17 09:43 Monocytes % 7 % 11/02/17 09:43 Eosinophils % 1 % 11/02/17 09:43 Basophils % 0 % 11/02/17 09:43 Neutrophils # 13.3 k/uL (1.3-7.7) H 11/02/17 09:43 Lymphocytes # 0.6 k/uL (1.0-4.8) L 11/02/17 09:43 Monocytes # 1.0 k/uL (0-1.0) 11/02/17 09:43 Eosinophils # 0.1 k/uL (0-0.7) 11/02/17 09:43 Basophils # 0.0 k/uL (0-0.2) 11/02/17 09:43 PT 28.4 sec (9.0-12.0) H 11/04/17 05:43 INR 3.2 (<1.2) H 11/04/17 05:43 APTT 39.8 sec (22.0-30.0) H 11/02/17 09:43 Sodium 141 mmol/L (137-145) 11/04/17 05:43 Potassium 3.9 mmol/L (3.5-5.1) 11/04/17 05:43 Chloride 99 mmol/L (98-107) 11/04/17 05:43 Carbon Dioxide 30 mmol/L (22-30) 11/04/17 05:43 Anion Gap 12 mmol/L 11/04/17 05:43 BUN 35 mg/dL (9-20) H 11/04/17 05:43 Creatinine 1.27 mg/dL (0.66-1.25) H 11/04/17 05:43 Est GFR (CKD-EPI)AfAm 66 (>60 ml/min/1.73 sqM) 11/04/17 05:43 Est GFR (CKD-EPI)NonAf 57 (>60 ml/min/1.73 sqM) 11/04/17 05:43 Glucose 234 mg/dL (74-99) H 11/04/17 05:43 POC Glucose (mg/dL) 256 mg/dL (75-99) H 11/04/17 21:16 POC Glu Assistant City Attorney ID Cahrlee Chairez 11/04/17 21:[address] Glu mg/dL 134 11/02/17 09:43 Hemoglobin A1c 6.3 % (4.0-6.0) H 11/02/17 09:43 Plasma Lactic Acid Virgilio 1.3 mmol/L (0.7-2.0) 11/02/17 09:43 Calcium 8.8 mg/dL (8.4-10.2) 11/04/17 05:43 Magnesium 2.0 mg/dL (1.6-2.3) 11/02/17 09:43 Total Bilirubin 0.6 mg/dL (0.2-1.3) 11/04/17 05:43 AST 20 U/L (17-59) 11/04/17 05:43 ALT 38 U/L (21-72) 11/04/17 05:43 Alkaline Phosphatase 88 U/L (38-126) 11/04/17 05:43 Total Creatine Kinase 33 U/L (55-170) L 11/02/17 09:43 CK-MB (CK-2) 0.8 ng/mL (0.0-2.4) 11/02/17 09:43 CK-MB (CK-2) Rel Index 2.4 11/02/17 09:43 Troponin I 0.029 ng/mL (0.000-0.034) 11/02/17 09:43 NT-Pro-B Natriuret Pep 2980 pg/mL 11/02/17 09:43 Total Protein 5.9 g/dL (6.3-8.2) L 11/04/17 05:43 Albumin 3.3 g/dL (3.5-5.0) L 11/04/17 05:43 Influenza Type A RNA Not Detected (Not Detectd) 11/02/17 10:32 Influenza Type B (PCR) Not Detected (Not Detectd) 11/02/17 10:32 Microbiology 11/02/17 09:43 Blood Blood Culture - Preliminary No Growth after 48 hours 11/03/17 08:19 Sputum Gram Stain - Preliminary Recent cardiac catheterization with right heart catheterization did not reveal evidence of pulmonary hypertension CT scan - chest: report reviewed (Evidence of chronic changes to the lung concerned to interstitial lung disease or unusual interstitial pneumonitis (UIP) ) Assessment and Plan (1) Atrial fibrillation with RVR Current Visit: Yes Status: Acute Code(s): I48.91 - UNSPECIFIED ATRIAL FIBRILLATION SNOMED Code(s): 648448853140055 (2) Interstitial pneumonitis Narrative/Plan: 72-year-old male presents to Hospital after recent hospitalization with much increased shortness of breath dyspnea on exertion and feeling very poorly overall. At admission he was found to have evidence of atrial fibrillation with a rapid ventricular response. He's been treated with Cardizem and his anticoagulation continues. He's had a recent right heart catheterization did not reveal evidence of pulmonary hypertension. Computed tomography scan does show evidence of the study and abnormalities consistent with some interstitial lung disease. As the patient has undergone diuresis and improvement of his heart rate he is feeling considerably better. As noted the stay in the last he's not having significant fevers, he's having no chills or rigors, cough and sputum production have not been a significant per the disease process. The patient does have leukocytosis but has had significant steroid exposure both during this stay and during the recent stay. All cultures have been negative. At this time it is not likely that he has bacterial pneumonia. A pro-calcitonin is requested, likely will be normal and antimicrobial therapy can then be discontinued. Cardiology is following and there is not improvement of the heart rate, volume overload, and treatment of the diastolic congestive heart failure. An aggressive plan for discharge will need to be constructed and hopefully the patient will be more compliant in the future. Current Visit: Yes Status: Acute Code(s): J84.89 - OTHER SPECIFIED INTERSTITIAL PULMONARY DISEASES SNOMED Code(s): 43858134 (3) Diastolic congestive heart failure with preserved left ventricular function , NYHA class 4 Current Visit: Yes Status: Acute Code(s): I50.30 - UNSPECIFIED DIASTOLIC ( CONGESTIVE) HEART FAILURE SNOMED Code(s): 240886799
[2017-11-05] MEDS: PIPERACILLIN-TAZOBACTAM 3.375 GM in DEXTROSE/WATER 1 50ML.BAG IVPB SCH (03:47)
[2017-11-05 06:06] LABS: Glucose,Whole Blood 176 mg/dL (75-99)
[2017-11-05] MEDS: INSULIN ASPART 100 UNIT/ML 1 ML 10 ML VIAL SQ SCH ×4 (06:31→22:19)
[2017-11-05 06:49] LABS: INR 4.6 (<1.2); Prothrombin Time 41.7 sec (9.0-12.0)
[2017-11-05 06:51] LABS: Calcium 9.1 mg/dL (8.4-10.2)
[2017-11-05] MEDS: BUDESONIDE 1 MG/2 ML NEBU INHALATION SCH ×2 (06:53→20:37)
[2017-11-05] MEDS: IPRATROPIUM-ALBUTEROL 3 ML NEB INHALATION SCH ×3 (06:53→20:37)
[2017-11-05] MEDS: methylPREDNISolone SOD SUCCI 40 MG/ML 1 ML VIAL IV SCH (07:54)
[2017-11-05] MEDS: FUROSEMIDE 10 MG/ML 4 ML VIAL IV SCH (07:55)
[2017-11-05] MEDS: DILTIAZEM ORAL 30 MG TAB PO SCH ×3 (07:55→22:18)
[2017-11-05] MEDS: FAMOTIDINE 20 MG TAB PO SCH ×2 (07:56→22:18)
[2017-11-05] MEDS: SILDENAFIL 20 MG TAB PO SCH ×3 (07:56→22:18)
[2017-11-05] MEDS: COLCHICINE 0.6 MG EACH PO SCH ×2 (07:56→22:18)
[2017-11-05] MEDS: METOPROLOL TARTRATE 50 MG TAB PO SCH ×2 (07:56→22:18)
[2017-11-05] MEDS: LISINOPRIL 20 MG TAB PO SCH (07:57)
[2017-11-05] MEDS: guaiFENesin 600 MG TABLET.ER PO SCH ×2 (07:57→22:18)
[2017-11-05] MEDS: SPIRONOLACTONE 25 MG TAB PO SCH (07:58)
--- NOTE | 2017-11-05 08:36 | XR ---
EXAMINATION TYPE: XR chest 2V DATE OF EXAM: 11/05/2017 COMPARISON: 11/02/2017 INDICATION: Shortness of breath TECHNIQUE: Frontal and lateral views of the chest are obtained. FINDINGS: The heart size is normal. The pulmonary vasculature is slightly prominent. There is mild increased lung markings greater in the lower lung matthews. This is improved from prior s tudy. Consider resolving congestive heart failure.. IMPRESSION: 1. Mild residual infiltrates at the lung bases with continued prominence of pulmonary vascular markin gs. Resolving congestive heart failure should be considered. Follow-up can be performed as clinically indicated.
--- NOTE | 2017-11-05 09:59 | P.PN ---
Subjective Progress Note Date: 11/05/17 HPI: This is a 72-year-old male patient well known to our services being seen and examined and evaluated today for consultation. This patient originally came into the emergency department complaining of aggressive worsening shortness of breath and was found to also have A. fib with RVR. The patient was recently in the hospital on 10/14/2017 was treated for his interstitial pneumonia and acute diastolic exacerbation of CHF. Patient was discharged home after diuresis IV steroids and antibiotics. During his emergency room evaluation yesterday the patient was noted to have an INR of 4.2, WBC count of 15.2, potassium of 5.2, BUN 22, creatinine 1.3. Influenza swab was negative. The patient was tachycardic and Neck and required supplemental oxygen to maintain oxygen saturations greater then 90%. His last echocardiogram was 10/14/2017 showed an EF of 55-60% with an RVSP of 48. Patient is also known to have a significant history of severe obstructive sleep apnea however is noncompliant and refuses to use CPAP. Upon examination today the patient is resting up in bed on 4 L of supplemental oxygen via nasal cannula. He continues to have shortness of breath with any exertion and activity. He does have a persistent cough with brownish avila sputum. Chest x-ray was reviewed and does show persistent CHF exacerbation and cardiomegaly with mild bilateral central A velar and interstitial edema. He did undergo a CTA this morning of the chest which did show findings compatible with interstitial lung disease and may be indicative of interstitial pneumonia. Upper lobe groundglass opacities to suggest active airspace disease. He was on a Cardizem drip previously for his A. fib with RVR however this has been transitioned to oral by cardiology, heart rate is currently controlled. Interval History: 11/04/17- patient being seen examined and evaluated today on rounds. Patient is resting up in bed and continues on 3 L of supplemental oxygen via nasal cannula. He does continue to have shortness of breath with exertion and activity, however slowly improving. He is afebrile All labs and reports have been reviewed. 11/05/17- patient is being seen examined and evaluated today on rounds. He is resting up in bedside chair on 3 L of supplemental oxygen via nasal cannula. Patient still gets short of breath with exertion and activity, however feels better overall. His chest x-ray is reviewed and does show mild residual infiltrates in the bases and resolving CHF. His INR today is 4.6. Discussed with the patient the need for any home oxygen assessment prior to discharge. Objective - Vital Signs Vital signs: Vital Signs Temp 97.1 F L 11/05/17 00:00 Pulse 100 11/05/17 07:12 Resp 17 11/05/17 04:00 BP 101/63 11/05/17 04:00 Pulse Ox 93 L 11/05/17 06:56 Intake & Output 11/04/17 11/05/17 11/05/17 18:59 06:59 18:59 Intake Total 960 240 Output Total 1200 900 Balance -240 -900 240 Weight 160 kg Intake: Oral 960 240 Output: Urine 1200 900 Other: Voiding Method Urinal Urinal # Voids 1 # Bowel Movements 0 - Exam GENERAL EXAM: Alert, morbidly obese, comfortable in no apparent distress. HEAD: Normocephalic. EYES: Normal reaction of pupils, equal size. NOSE: Clear with pink turbinates. THROAT: No erythema or exudates. NECK: No masses, no JVD. CHEST: No chest wall deformity. LUNGS: Diminished air entry bilaterally, improving. Bases diminished CVS: S1 and S2 normal with no audible mumurs, regular rhythm. ABDOMEN: No hepatosplenomegaly, normal bowel sounds, no guarding or rigidity. EXTREMITIES: Chronic bilateral lower extremity skin changes, trace edema noted, pedal pulses palpable. CENTRAL NERVOUS SYSTEM: No focal deficits, tone is normal in all 4 extremities. - Labs CBC & Chem 7: 11/02/17 09:43 11/05/17 06:10 Labs: Abnormal Lab Results - Last 24 Hours (Table) 11/04/17 11/04/17 11/04/17 Range/Units 05:43 11:32 16:28 PT (9.0-12.0) sec INR (<1.2) Carbon Dioxide (22-30) mmol/L BUN (9-20) mg/dL Creatinine (0.66-1.25) mg/dL Glucose (74-99) mg/dL POC Glucose (mg/dL) 156 H 163 H (75-99) mg/dL Procalcitonin 0.12 H (0.02-0.09) ng/mL 11/04/17 11/05/17 11/05/17 Range/Units 21:16 06:05 06:10 PT 41.7 H (9.0-12.0) sec INR 4.6 H (<1.2) Carbon Dioxide (22-30) mmol/L BUN (9-20) mg/dL Creatinine (0.66-1.25) mg/dL Glucose (74-99) mg/dL POC Glucose (mg/dL) 256 H 176 H (75-99) mg/dL Procalcitonin (0.02-0.09) ng/mL 11/05/17 Range/Units 06:10 PT (9.0-12.0) sec INR (<1.2) Carbon Dioxide 31 H (22-30) mmol/L BUN 44 H (9-20) mg/dL Creatinine 1.40 H (0.66-1.25) mg/dL Glucose 154 H (74-99) mg/dL POC Glucose (mg/dL) (75-99) mg/dL Procalcitonin (0.02-0.09) ng/mL Microbiology - Last 24 Hours (Table) 11/03/17 08:19 Gram Stain - Final Sputum Sputum Culture - Final 11/02/17 09:43 Blood Culture - Preliminary Blood No Growth after 48 hours Assessment and Plan Assessment: Assessment Acute hypoxic with hypercarbic respiratory failure requiring supplemental oxygen Doubtful Interstitial pneumonitis, groundglass opacities more consistent with CHF Acute exacerbation of CHF Atrial fibrillation with RVR Coagulopathy Questionable pulmonary hypertension last echo showed RVSP of 48 however right heart cath was negative for true pulmonary hypertension Obstructive sleep apnea Morbid obesity Hypertension BPH Hyperlipidemia Diabetes mellitus type 2 Hyperkalemia Plan Medications have been reviewed and will be continued as ordered. Steroids have been tapered. Sputum cultures pending, negative thus far. Continue gentle diuresis. Monitor INR. Monitor electrolytes. Continue Sildenafil pre recommendations for PH Dr. Rm. Continue with pulmonary hygiene, coughing and deep breathing exercises, and supportive care. Supplemental oxygen to maintain oxygen saturations of 88% or better. Will need a home oxygen assessment prior to discharge Initiate and encourage incentive spirometer and flutter valve. Continue nebulizer treatments, added DuoNeb. GI and DVT prophylaxis. Cardiology recommendations. Patient education provided at length in regards to his noncompliance CPAP use with his CHLOE and correlation with his atrial fibrillation with RVR. We will continue to monitor labs/results and adjust treatment as necessary. Further recommendations pending. I performed an examination of the patient and discussed their management with the nurse practitioner. I have reviewed the nurse practitioner's note and agree with the documented findings and plan of care.
[2017-11-05 11:52] LABS: Glucose,Whole Blood 154 mg/dL (75-99)
[2017-11-05] MEDS ORDERED: LISINOPRIL 10 MG TAB PO SCH (12:57)
--- NOTE | 2017-11-05 14:40 | PN ---
PROGRESS NOTE Mr. Montilla is a 72-year-old male who presented with symptoms of dyspnea. He has a history of atrial fibrillation. He is feeling better this morning. His breathing is stable. He denies any dizziness or palpitation. He denies any nausea. He has continued to be on diltiazem 30 mg 3 times a day, Lasix 40 mg IV q.8 hours, Lisinopril 5 mg daily, prednisone, spironolactone, Coumadin. PHYSICAL EXAMINATION: Blood pressure running in the 90s, heart rate in 90s. LUNGS: Clear. HEART: Irregular irregular, S1, S2. No S3. No rub. ABDOMEN: Soft, obese, nontender. EXTREMITIES: Chronic stasis. IMPRESSION: 1. Progressive dyspnea, improved. 2. Atrial fibrillation. 3. Obesity. 4. Hypoxemia. RECOMMENDATION: We will continue current therapy. I will cut down the dose of his Lasix as well as lisinopril. Follow his renal function. Increase his level of activity. If remains stable, I would expect he should be able to be discharged home soon. MMODL / IJN: [id number] /
[2017-11-05 16:39] LABS: Glucose,Whole Blood 158 mg/dL (75-99)
[2017-11-05] MEDS ORDERED: methylPREDNISolone SOD SUCCI 40 MG/ML 1 ML VIAL IV SCH (21:00)
[2017-11-05] MEDS ORDERED: FUROSEMIDE 10 MG/ML 4 ML VIAL IV SCH (21:00)
[2017-11-05 21:12] LABS: Glucose,Whole Blood 139 mg/dL (75-99)
[2017-11-05] MEDS: PRAVASTATIN SODIUM 20 MG TAB PO SCH (22:18)
[2017-11-05] MEDS: ALLOPURINOL 100 MG TAB PO SCH (22:18)
[2017-11-05] MEDS: MONTELUKAST 10 MG TAB PO SCH (22:18)
[2017-11-05] MEDS: DOXAZOSIN 4 MG TAB PO SCH (22:18)
--- NOTE | 2017-11-05 23:03 | P.PN ---
Subjective Progress Note Date: 11/05/17 Principal diagnosis: Shortness of breath 72-year-old male presents to Hospital with complaints of increasing shortness of breath that has rapidly increased over the last day. He was seen by his primary care physician and admitted to hospital with an acute exacerbation of his CHF as well as evidence of cardiac dysrhythmia, with atrial fibrillation with a rapid ventricular response. At admission the patient was profoundly short of breath and was found that he was noncompliant with the treatment of his obstructive sleep apnea home by not using his home CPAP. He also has difficulty with significant obesity has had no significant weight loss over time. The patient relates that today fortunately starting to feel better. He is considerably less short of breath than he was. Since the recent hospitalization he is continuing to have difficulties with his respiratory status. He however denies significant fevers, chills or rigors. He has chronic cough without significant sputum production. He has not had a change in his sputum production. He also does not have hemoptysis despite his highly therapeutic INR, anticoagulation is for his chronic atrial fibrillation. With controls of atrial fibrillation and diuresis he is starting to feel considerably better. 11/05/2017 reveals the patient to be less short of breath and more comfortable. He is eating well. Energy levels are improved. Objective - Vital Signs Vital signs: Vital Signs Temp 97.0 F L 11/05/17 15:15 Pulse 98 11/05/17 20:51 Resp 18 11/05/17 15:15 BP 109/63 11/05/17 15:15 Pulse Ox 97 11/05/17 20:37 Intake & Output 11/05/17 11/05/17 11/06/17 06:59 18:59 06:59 Intake Total 840 Output Total 900 600 Balance -900 240 Weight 160 kg Intake: Oral 840 Output: Urine 900 600 Other: Voiding Method Urinal Urinal # Voids 2 # Bowel Movements 0 - Exam 72-year-old male who has superobesity, is less short of breath and feels better today HEENT: Anicteric conjunctiva are pink and moist nasal mucosa grossly intact without significant lesions, there is no thrush. Neck: The neck is supple without significant lymphadenopathy or thyromegaly. Lungs: Symmetrical air entry was noted, scattered expiratory wheezes are noted, few basilar crackles are heard no dullness or egophony is appreciated Heart: Irregularly irregular with an audible S1 and S2 soft S4 There is no significant murmur click or rub, PMI was nondisplaced. Abdomen: Obese, Positive bowel sounds soft and nontender without palpable masses or organomegaly. There was no guarding or rebound. Extremities: Upper extremity revealed evidence no lesions pulses were 2+ and symmetric. Lower extremities have chronic venous stasis with edema with no open ulcerations, but chronic hemosiderin staining Neuro: Awake alert oriented to person place and time. There are no acute new gross focal sensory motor deficits. - Labs CBC & Chem 7: 11/02/17 09:43 11/05/17 06:10 Labs: Abnormal Lab Results - Last 24 Hours (Table) 11/04/17 11/05/17 11/05/17 Range/Units 05:43 06:05 06:10 PT 41.7 H (9.0-12.0) sec INR 4.6 H (<1.2) Carbon Dioxide (22-30) mmol/L BUN (9-20) mg/dL Creatinine (0.66-1.25) mg/dL Glucose (74-99) mg/dL POC Glucose (mg/dL) 176 H (75-99) mg/dL Procalcitonin 0.12 H (0.02-0.09) ng/mL 11/05/17 11/05/17 11/05/17 Range/Units 06:10 11:51 16:37 PT (9.0-12.0) sec INR (<1.2) Carbon Dioxide 31 H (22-30) mmol/L BUN 44 H (9-20) mg/dL Creatinine 1.40 H (0.66-1.25) mg/dL Glucose 154 H (74-99) mg/dL POC Glucose (mg/dL) 154 H 158 H (75-99) mg/dL Procalcitonin (0.02-0.09) ng/mL 11/05/17 Range/Units 21:01 PT (9.0-12.0) sec INR (<1.2) Carbon Dioxide (22-30) mmol/L BUN (9-20) mg/dL Creatinine (0.66-1.25) mg/dL Glucose (74-99) mg/dL POC Glucose (mg/dL) 139 H (75-99) mg/dL Procalcitonin (0.02-0.09) ng/mL Microbiology - Last 24 Hours (Table) 11/02/17 09:43 Blood Culture - Preliminary Blood No Growth after 72 hours 11/03/17 08:19 Gram Stain - Final Sputum Sputum Culture - Final Laboratory Results WBC 15.2 k/uL (3.8-10.6) H 11/02/17 09:43 RBC 4.44 m/uL (4.30-5.90) 11/02/17 09:43 Hgb 12.5 gm/dL (13.0-17.5) L 11/02/17 09:43 Hct 38.2 % (39.0-53.0) L 11/02/17 09:43 MCV 86.0 fL (80.0-100.0) 11/02/17 09:43 MCH 28.2 pg (25.0-35.0) 11/02/17 09:43 MCHC 32.8 g/dL (31.0-37.0) 11/02/17 09:43 RDW 13.8 % (11.5-15.5) 11/02/17 09:43 Plt Count 112 k/uL (150-450) L 11/02/17 09:43 Neutrophils % 88 % 11/02/17 09:43 Lymphocytes % 4 % 11/02/17 09:43 Monocytes % 7 % 11/02/17 09:43 Eosinophils % 1 % 11/02/17 09:43 Basophils % 0 % 11/02/17 09:43 Neutrophils # 13.3 k/uL (1.3-7.7) H 11/02/17 09:43 Lymphocytes # 0.6 k/uL (1.0-4.8) L 11/02/17 09:43 Monocytes # 1.0 k/uL (0-1.0) 11/02/17 09:43 Eosinophils # 0.1 k/uL (0-0.7) 11/02/17 09:43 Basophils # 0.0 k/uL (0-0.2) 11/02/17 09:43 PT 41.7 sec (9.0-12.0) H 11/05/17 06:10 INR 4.6 (<1.2) H 11/05/17 06:10 APTT 39.8 sec (22.0-30.0) H 11/02/17 09:43 Sodium 144 mmol/L (137-145) 11/05/17 06:10 Potassium 4.0 mmol/L (3.5-5.1) 11/05/17 06:10 Chloride 98 mmol/L (98-107) 11/05/17 06:10 Carbon Dioxide 31 mmol/L (22-30) H 11/05/17 06:10 Anion Gap 15 mmol/L 11/05/17 06:10 BUN 44 mg/dL (9-20) H 11/05/17 06:10 Creatinine 1.40 mg/dL (0.66-1.25) H 11/05/17 06:10 Est GFR (CKD-EPI)AfAm 59 (>60 ml/min/1.73 sqM) 11/05/17 06:10 Est GFR (CKD-EPI)NonAf 51 (>60 ml/min/1.73 sqM) 11/05/17 06:10 Glucose 154 mg/dL (74-99) H 11/05/17 06:10 POC Glucose (mg/dL) 139 mg/dL (75-99) H 11/05/17 21:01 POC Glu Regulatory Compliance Specialist ID Jocelynn Wu 11/05/17 21:[address] Glu mg/dL 134 11/02/17 09:43 Hemoglobin A1c 6.3 % (4.0-6.0) H 11/02/17 09:43 Plasma Lactic Acid Virgilio 1.3 mmol/L (0.7-2.0) 11/02/17 09:43 Calcium 9.1 mg/dL (8.4-10.2) 11/05/17 06:10 Magnesium 2.0 mg/dL (1.6-2.3) 11/02/17 09:43 Total Bilirubin 0.6 mg/dL (0.2-1.3) 11/04/17 05:43 AST 20 U/L (17-59) 11/04/17 05:43 ALT 38 U/L (21-72) 11/04/17 05:43 Alkaline Phosphatase 88 U/L (38-126) 11/04/17 05:43 Total Creatine Kinase 33 U/L (55-170) L 11/02/17 09:43 CK-MB (CK-2) 0.8 ng/mL (0.0-2.4) 11/02/17 09:43 CK-MB (CK-2) Rel Index 2.4 11/02/17 09:43 Troponin I 0.029 ng/mL (0.000-0.034) 11/02/17 09:43 NT-Pro-B Natriuret Pep 2980 pg/mL 11/02/17 09:43 Total Protein 5.9 g/dL (6.3-8.2) L 11/04/17 05:43 Albumin 3.3 g/dL (3.5-5.0) L 11/04/17 05:43 Procalcitonin 0.12 ng/mL (0.02-0.09) H 11/04/17 05:43 Influenza Type A RNA Not Detected (Not Detectd) 11/02/17 10:32 Influenza Type B (PCR) Not Detected (Not Detectd) 11/02/17 10:32 Microbiology 11/02/17 09:43 Blood Blood Culture - Preliminary No Growth after 72 hours 11/03/17 08:19 Sputum Gram Stain - Final 11/03/17 08:19 Sputum Sputum Culture - Final Assessment and Plan (1) Atrial fibrillation with RVR Current Visit: Yes Status: Acute Code(s): I48.91 - UNSPECIFIED ATRIAL FIBRILLATION SNOMED Code(s): 946455860273410 (2) Interstitial pneumonitis Narrative/Plan: 72-year-old male presents to Hospital after recent hospitalization with much increased shortness of breath dyspnea on exertion and feeling very poorly overall. At admission he was found to have evidence of atrial fibrillation with a rapid ventricular response. He's been treated with Cardizem and his anticoagulation continues. He's had a recent right heart catheterization did not reveal evidence of pulmonary hypertension. Computed tomography scan does show evidence of the study and abnormalities consistent with some interstitial lung disease. As the patient has undergone diuresis and improvement of his heart rate he is feeling considerably better. As noted the stay in the last he's not having significant fevers, he's having no chills or rigors, cough and sputum production have not been a significant per the disease process. The patient does have leukocytosis but has had significant steroid exposure both during this stay and during the recent stay. All cultures have been negative. At this time it is not likely that he has bacterial pneumonia. A pro-calcitonin is requested, likely will be normal and antimicrobial therapy can then be discontinued. Cardiology is following and there is not improvement of the heart rate, volume overload, and treatment of the diastolic congestive heart failure. An aggressive plan for discharge will need to be constructed and hopefully the patient will be more compliant in the future.\ 11/05/2017 reveals the patient to be feeling somewhat better today, with diuresis and control of his atrial fibrillation his shortness of breath is improved. The pro-calcitonin has been completed and has come back as normal. The patient has no significant fever leukocytosis or sputum production and with diuresis is feeling better. Consequently the patient does not appear to have significant infection and Zosyn is discontinued. Cardiology is following and with her treatments he has had improvement as well as a respiratory treatments and oxygen therapy. Current Visit: Yes Status: Acute Code(s): J84.89 - OTHER SPECIFIED INTERSTITIAL PULMONARY DISEASES SNOMED Code(s): 87636010 (3) Diastolic congestive heart failure with preserved left ventricular function , NYHA class 4 Current Visit: Yes Status: Acute Code(s): I50.30 - UNSPECIFIED DIASTOLIC ( CONGESTIVE) HEART FAILURE SNOMED Code(s): 308441993
[2017-11-06 05:14] VITALS: RESP 18
[2017-11-06 05:21] LABS: Glucose,Whole Blood 143 mg/dL (75-99)
[2017-11-06] MEDS: INSULIN ASPART 100 UNIT/ML 1 ML 10 ML VIAL SQ SCH ×2 (06:18→11:53)
[2017-11-06 06:57] LABS: Prothrombin Time 49.4 sec (9.0-12.0)
[2017-11-06 07:01] LABS: INR 5.5 (<1.2)
[2017-11-06 07:03] LABS: Potassium 4.1 mmol/L (3.5-5.1)
[2017-11-06] MEDS: SILDENAFIL 20 MG TAB PO SCH (08:54)
[2017-11-06] MEDS: SPIRONOLACTONE 25 MG TAB PO SCH (08:54)
[2017-11-06] MEDS: METOPROLOL TARTRATE 50 MG TAB PO SCH (08:55)
[2017-11-06] MEDS: guaiFENesin 600 MG TABLET.ER PO SCH (08:55)
[2017-11-06] MEDS: FAMOTIDINE 20 MG TAB PO SCH (08:55)
[2017-11-06] MEDS: DILTIAZEM ORAL 30 MG TAB PO SCH (08:55)
[2017-11-06] MEDS: COLCHICINE 0.6 MG EACH PO SCH (08:56)
[2017-11-06] MEDS ORDERED: predniSONE 50 MG TAB PO SCH (09:00)
[2017-11-06] MEDS ORDERED: LISINOPRIL 5 MG TAB PO SCH (09:00)
[2017-11-06] MEDS ORDERED: FUROSEMIDE 40 MG TAB PO SCH (09:00)
--- NOTE | 2017-11-06 09:02 | PN ---
PROGRESS NOTE Mr. Montilla is a 72-year-old male who presented with symptoms of progressive dyspnea and has a history of atrial fibrillation. He is feeling better today. His breathing is better. He has been more active. He denies any dizziness. No palpitation. He denies any nausea. He continues to be at this time on diltiazem 30 mg 3 times a day, Lasix 40 mg IV q.12 hours, lisinopril 5 mg daily, metoprolol tartrate 100 mg twice a day, Aldactone 25 mg daily, and sildenafil 20 mg 3 times a day. PHYSICAL EXAMINATION: Blood pressure 108/60 with the heart rate in the 80s. LUNGS: Clear. HEART: Irregular, irregular. S1, S2. No S3. No rub appreciated. ABDOMEN: Soft, obese, nontender. EXTREMITIES: Chronic stasis with no evidence of significant edema. LAB DATA: Chest x-ray performed yesterday shows resolving signs of heart failure. His BUN and creatinine are 45 and 1.18. His INR is 5.5. Potassium 4.1. IMPRESSION: 1. Congestive heart failure with diastolic dysfunction. 2. Chronic persistent atrial fibrillation. 3. Obesity. 4. Hypoxemia. RECOMMENDATION: I will switch him to oral diuretics, increase his level of activity. I would expect he should be able to be discharged home soon. His Coumadin will be on hold in view of the worsening renal function. MMODL / IJN: [id number] /
[2017-11-06] MEDS: IPRATROPIUM-ALBUTEROL 3 ML NEB INHALATION SCH ×2 (09:03→12:00)
[2017-11-06] MEDS: BUDESONIDE 1 MG/2 ML NEBU INHALATION SCH (09:03)
--- NOTE | 2017-11-06 09:50 | P.PN ---
Subjective Progress Note Date: 11/06/17 HPI: This is a 72-year-old male patient well known to our services being seen and examined and evaluated today for consultation. This patient originally came into the emergency department complaining of aggressive worsening shortness of breath and was found to also have A. fib with RVR. The patient was recently in the hospital on 10/14/2017 was treated for his interstitial pneumonia and acute diastolic exacerbation of CHF. Patient was discharged home after diuresis IV steroids and antibiotics. During his emergency room evaluation yesterday the patient was noted to have an INR of 4.2, WBC count of 15.2, potassium of 5.2, BUN 22, creatinine 1.3. Influenza swab was negative. The patient was tachycardic and Neck and required supplemental oxygen to maintain oxygen saturations greater then 90%. His last echocardiogram was 10/14/2017 showed an EF of 55-60% with an RVSP of 48. Patient is also known to have a significant history of severe obstructive sleep apnea however is noncompliant and refuses to use CPAP. Upon examination today the patient is resting up in bed on 4 L of supplemental oxygen via nasal cannula. He continues to have shortness of breath with any exertion and activity. He does have a persistent cough with brownish avila sputum. Chest x-ray was reviewed and does show persistent CHF exacerbation and cardiomegaly with mild bilateral central A velar and interstitial edema. He did undergo a CTA this morning of the chest which did show findings compatible with interstitial lung disease and may be indicative of interstitial pneumonia. Upper lobe groundglass opacities to suggest active airspace disease. He was on a Cardizem drip previously for his A. fib with RVR however this has been transitioned to oral by cardiology, heart rate is currently controlled. Interval History: 11/04/17- patient being seen examined and evaluated today on rounds. Patient is resting up in bed and continues on 3 L of supplemental oxygen via nasal cannula. He does continue to have shortness of breath with exertion and activity, however slowly improving. He is afebrile All labs and reports have been reviewed. 11/05/17- patient is being seen examined and evaluated today on rounds. He is resting up in bedside chair on 3 L of supplemental oxygen via nasal cannula. Patient still gets short of breath with exertion and activity, however feels better overall. His chest x-ray is reviewed and does show mild residual infiltrates in the bases and resolving CHF. His INR today is 4.6. Discussed with the patient the need for any home oxygen assessment prior to discharge. 11/06/17- patient is being seen examined and evaluated today on rounds. He is resting up in bed on 2 L of supplemental oxygen via nasal cannula. States his breathing is much better today. Shortness of breath cough and congestion all improving. He'll be undergoing a home oxygen assessment today. All labs and reports have been reviewed. Objective - Vital Signs Vital signs: Vital Signs Temp 97.8 F 11/06/17 00:00 Pulse 102 H 11/06/17 09:18 Resp 18 11/06/17 04:00 BP 108/61 11/06/17 04:00 Pulse Ox 92 L 11/06/17 04:00 Intake & Output 11/05/17 11/06/17 11/06/17 18:59 06:59 18:59 Intake Total 840 476 Output Total 600 880 Balance 240 -880 476 Weight 160 kg Intake: Oral 840 476 Output: Urine 600 880 Other: Voiding Method Urinal Urinal # Voids 2 1 # Bowel Movements 0 - Exam GENERAL EXAM: Alert, morbidly obese, comfortable in no apparent distress. HEAD: Normocephalic. EYES: Normal reaction of pupils, equal size. NOSE: Clear with pink turbinates. THROAT: No erythema or exudates. NECK: No masses, no JVD. CHEST: No chest wall deformity. LUNGS: Diminished air entry bilaterally, improving. Bases diminished CVS: S1 and S2 normal with no audible mumurs, regular rhythm. ABDOMEN: No hepatosplenomegaly, normal bowel sounds, no guarding or rigidity. EXTREMITIES: Chronic bilateral lower extremity skin changes, trace edema noted, pedal pulses palpable. CENTRAL NERVOUS SYSTEM: No focal deficits, tone is normal in all 4 extremities. - Labs CBC & Chem 7: 11/02/17 09:43 11/06/17 05:58 Labs: Abnormal Lab Results - Last 24 Hours (Table) 11/05/17 11/05/17 11/05/17 Range/Units 11:51 16:37 21:01 PT (9.0-12.0) sec INR (<1.2) Carbon Dioxide (22-30) mmol/L BUN (9-20) mg/dL Glucose (74-99) mg/dL POC Glucose (mg/dL) 154 H 158 H 139 H (75-99) mg/dL 11/06/17 11/06/17 11/06/17 Range/Units 05:20 05:58 05:58 PT 49.4 H (9.0-12.0) sec INR 5.5 H* (<1.2) Carbon Dioxide 32 H (22-30) mmol/L BUN 45 H (9-20) mg/dL Glucose 135 H (74-99) mg/dL POC Glucose (mg/dL) 143 H (75-99) mg/dL Microbiology - Last 24 Hours (Table) 11/02/17 09:43 Blood Culture - Preliminary Blood No Growth after 72 hours 11/03/17 08:19 Gram Stain - Final Sputum Sputum Culture - Final Assessment and Plan Assessment: Assessment Acute hypoxic with hypercarbic respiratory failure requiring supplemental oxygen Doubtful Interstitial pneumonitis, groundglass opacities more consistent with CHF Acute exacerbation of CHF Atrial fibrillation with RVR Coagulopathy Questionable pulmonary hypertension last echo showed RVSP of 48 however right heart cath was negative for true pulmonary hypertension Obstructive sleep apnea Morbid obesity Hypertension BPH Hyperlipidemia Diabetes mellitus type 2 Hyperkalemia Plan Patient is cleared for discharge from a pulmonary standpoint. Medications have been reviewed and will be continued as ordered. Steroids have been tapered. Sputum cultures pending, negative thus far. Continue gentle diuresis. Monitor INR. Monitor electrolytes. Continue Sildenafil pre recommendations for PH Dr. Rm. Continue with pulmonary hygiene, coughing and deep breathing exercises , and supportive care. Supplemental oxygen to maintain oxygen saturations of 88 % or better. Will need a home oxygen assessment prior to discharge Initiate and encourage incentive spirometer and flutter valve. Continue nebulizer treatments, added DuoNeb. GI and DVT prophylaxis. Cardiology recommendations. Patient education provided at length in regards to his noncompliance CPAP use with his CHLOE and correlation with his atrial fibrillation with RVR. We will continue to monitor labs/results and adjust treatment as necessary. Further recommendations pending. I performed an examination of the patient and discussed their management with the nurse practitioner. I have reviewed the nurse practitioner's note and agree with the documented findings and plan of care.
--- NOTE | 2017-11-06 10:43 | P.PN ---
Subjective Progress Note Date: 11/05/17 64-year-old male patient of Dr. Grissom and Dr. Dominguez with known medical history of hypertension, hyperlipidemia and benign prostatic hypertrophy , chronic back pain, gout, osteoarthritis and borderline diabetes chronic atrial fibrillation, pulmnary hpertension , history of obstructive sleep apnea but unable to tolerate CPAP but currently not using CPAP at home. presents with shortness of breath for a couple of days worsening with activity. He was just admitted from our facility, 10/14/2017, and was treated for interstitial pneumonia, BNP was elevated at that time for acute diastolic CHF, he had a Mycoplasma antigen Danielle antibodies that were negative, he was discharged to home, after diuresing and IV steroids. Last echocardiogram, 10/14, EF 55-60%, LVH, severely dilated left atrium, right ventricle systolic pressure of 48 consistent with moderate pulmonary hypertension. No recent CAT scan for review, no d-dimer however patient is chronically anticoagulated, creatinine baseline would be 1.1-1.3, last hemoglobin A1c of 5.24 September 2017 CO2 levels at that time was 31 He was seen by Dr. Solorzano in the office today, and was noted to be dyspneic, with A. fib RVR, patient has blue lips when seen, him a patient slightly metabolic acidotic, looks like he is compensated, INR off 4, creatinine of 1.38 slightly higher than baseline. Patient has a chest x-ray of extensive pulmonary infiltrates, significantly worsened old exam, related to pulmonary fibrosis heart failure or interstitial pneumonia. There is no pleural effusions no cardiomegaly Cardiology is consulted and is currently on Lasix 40 mg every 8 hours 11/03: The patient was seen today, he reports shortness of breath has improved slightly. He completed a chest CT that showed interstitial lung disease and interstitial pneumonia. Will continue on Zosyn, sputum cultures pending, blood cultures show no growth to date. Pulmonary on consult, who recommends to continue Sildenafil, steroids, nebulizer, and Duonebs. Cardiology also on consult, who recommends to continue with IV diuresis, anticoagulation, beta jacinto, and NASIR inhibitor. He continues on 4L nasal canula, o2 saturation remains above 93%. He will also continue with flutter valve and incentive spirometry. 11/04: Patient was evaluated sitting up in the bed with family at bedside. He reports breathing has improved slightly, still has productive cough. Infectious disease consulted for interstitial pneumonitis. He will continue on Zosyn, blood and sputum cultures are still pending. Heart rate has been well controlled, low 100s, he is down approximately 3 kg from admission weight. 11/05: Patient is currently on Lasix 40 mg every 8 hours as well as Solu-Medrol 40 mg every 12 hours. We will switch Solu-Medrol to oral prednisone for the morning. His blood pressures on the low side for which lisinopril decreased. INR remains high at 4.6 and Coumadin is held for today. Nursing to ambulate patient to evaluate for home O2 need. Dr. Wilson has planned BiPAP option for him as he cannot tolerate the CPAP. Dr. Diaz has discontinued antibiotics. Dr. Dominguez will decrease Lasix 40 mg orally twice daily. He denies having any fever, chills, diarrhea. Anticipate discharge home tomorrow. Objective - Vital Signs Vital signs: Vital Signs Temp 97.4 F L 11/05/17 07:40 Pulse 120 H 11/05/17 08:00 Resp 18 11/05/17 08:00 BP 96/59 11/05/17 07:40 Pulse Ox 96 11/05/17 07:40 Intake & Output 11/04/17 11/05/17 11/05/17 18:59 06:59 18:59 Intake Total 960 240 Output Total 1200 900 Balance -240 -900 240 Weight 160 kg Intake: Oral 960 240 Output: Urine 1200 900 Other: Voiding Method Urinal Urinal Urinal # Voids 1 # Bowel Movements 0 - Exam General appearance: cooperative, morbidly obese - EENT Eyes: EOMI, PERRLA, dentition normal, normal appearance ENT: NA/AT, normal oropharynx - Neck Neck: normal ROM - Respiratory Respiratory: bilateral: slight wheeze, negative: diminished, dullness - Cardiovascular Rhythm: irregularly irregular Heart sounds: normal: S1, S2 - Gastrointestinal General gastrointestinal: normal bowel sounds, soft - Integumentary Integumentary: decreased turgor, normal - Neurologic Neurologic: CNII-XII intact - Musculoskeletal Musculoskeletal: generalized weakness, strength equal bilaterally - Psychiatric Psychiatric: A&O x's 3, appropriate affect, intact judgment & insight - Labs CBC & Chem 7: 11/02/17 09:43 11/06/17 05:58 Labs: Abnormal Lab Results - Last 24 Hours (Table) 11/04/17 11/04/17 11/04/17 Range/Units 05:43 16:28 21:16 PT (9.0-12.0) sec INR (<1.2) Carbon Dioxide (22-30) mmol/L BUN (9-20) mg/dL Creatinine (0.66-1.25) mg/dL Glucose (74-99) mg/dL POC Glucose (mg/dL) 163 H 256 H (75-99) mg/dL Procalcitonin 0.12 H (0.02-0.09) ng/mL 11/05/17 11/05/17 11/05/17 Range/Units 06:05 06:10 06:10 PT 41.7 H (9.0-12.0) sec INR 4.6 H (<1.2) Carbon Dioxide 31 H (22-30) mmol/L BUN 44 H (9-20) mg/dL Creatinine 1.40 H (0.66-1.25) mg/dL Glucose 154 H (74-99) mg/dL POC Glucose (mg/dL) 176 H (75-99) mg/dL Procalcitonin (0.02-0.09) ng/mL 11/05/17 Range/Units 11:51 PT (9.0-12.0) sec INR (<1.2) Carbon Dioxide (22-30) mmol/L BUN (9-20) mg/dL Creatinine (0.66-1.25) mg/dL Glucose (74-99) mg/dL POC Glucose (mg/dL) 154 H (75-99) mg/dL Procalcitonin (0.02-0.09) ng/mL Microbiology - Last 24 Hours (Table) 11/02/17 09:43 Blood Culture - Preliminary Blood No Growth after 72 hours 11/03/17 08:19 Gram Stain - Final Sputum Sputum Culture - Final Assessment and Plan Plan: 1. Acute hypoxic with hypercarbic respiratory failure secondary to acute diastolic heart failure. Pneumonia has been ruled out. Continue O2 therapy. Echocardiogram was recently done during his last admission, consult with pulmonary medicine and cardiology appreciated. IV Lasix has been switched over to oral Lasix twice daily 40 mg and Solu-Medrol to prednisone in the morning. 2. Atrial fibrillation with rapid ventricular response with history of chronic atrial fibrillation. Hold Coumadin was supratherapeutic INR. Metoprolol resumed. Continue to monitor INR. Cardiology and pulmonary medicine on consult. 3. Supratherapeutic INR on Coumadin. Hold Coumadin. PT/INR ordered. No vitamin K needed 4. Secondary Moderate pulmonary hypertension with systolic pressure of 48, currently on diuretics, most like is secondary to obstructive sleep apnea rather than CTEPH, (chronic thromboembolic pulmonary hypertension) as the patient's chronically on anticoagulation, however patient is noncompliant CPAP , followed with Dr. Rm for pulmonary hypertension clinic, patient had a right heart cath which did not show true pulmonary hypertension 5. Obstructive sleep apnea, noncompliance to CPAP secondary to discomfort and PTSD related to its use, pulmonary to evaluate for possible needs outpatient including BiPAP. Advocated encourage to pursue weight loss 6 chronic dependent edema, leg swelling is at baseline, continue diuretics, leg elevation, down approximately 3 kg from admission weight. 7. Hypertension. Continue benazepril 20 mg daily and Lopressor 50 mg twice daily, Aldactone 25 mg daily. 8. Acute on chronic diastolic heart failure. Echocardiogram as above. Continue Lasix 40 mg po and Aldactone 25 mg daily. INR monitoring. Daily weight 9. Benign prostatic hypertrophy. Continue Cardura. Check for postvoid residual 10. Acute renal sufficiency with CKD stage III, monitor creatinine, possibly ATN, avoid nephrotoxins and hypotension. No acute kidney injury 11. Hyperlipidemia. Continue Pravachol. 12. Gout unspecified. Continue colchicine and allopurinol. 13. Chronic low back pain and generalized osteoarthritis, stable. 14. Diabetes mellitus type 2 with steroid induced hyperglycemia, no current maintenance medication. Humalog scale 15. DVT prophylaxis. INR supratherapeutic on Coumadin maintenance 16. Gastrointestinal prophylaxis. Pepcid 20 mg by mouth twice a day Discharge plan: Return home Impression and plan of care have been directed as dictated by the signing physician. Linda Maloney nurse practitioner acting as scribe for signing physician.
[2017-11-06 11:42] LABS: Glucose,Whole Blood 125 mg/dL (75-99)
[2017-11-06 12:27] VITALS: BP 113/71; PULSE 90; TEMP 96.2
--- NOTE | 2017-11-06 15:25 | P.DS ---
Providers Date of admission: 11/02/17 11:49 Expected date of discharge: 11/06/17 Attending physician: Cande Low Consults: 11/02/17 11:50 Consult Physician Routine Consulting Provider: Rony Strange Consult Reason/Comments: CHF Do you want consulting provider notified?: Yes 11/02/17 18:41 Consult Physician Routine Consulting Provider: Joyce Wilson Consult Reason/Comments: pulmonary fibrosis, pulm hypertension, intertitial pneumonia Do you want consulting provider notified?: Yes 11/04/17 09:49 Consult Physician Routine Consulting Provider: Gianluca Diaz Consult Reason/Comments: interstitial pneumonitis Do you want consulting provider notified?: Yes Primary care physician: [facility] Course: 64-year-old male patient of Dr. Grissom and Dr. Dominguez with known medical history of hypertension, hyperlipidemia and benign prostatic hypertrophy , chronic back pain, gout, osteoarthritis and borderline diabetes chronic atrial fibrillation, pulmnary hpertension , history of obstructive sleep apnea but unable to tolerate CPAP but currently not using CPAP at home. presents with shortness of breath for a couple of days worsening with activity. He was just admitted from our facility, 10/14/2017, and was treated for interstitial pneumonia, BNP was elevated at that time for acute diastolic CHF, he had a Mycoplasma antigen Danielle antibodies that were negative, he was discharged to home, after diuresing and IV steroids. Last echocardiogram, 10/14, EF 55-60%, LVH, severely dilated left atrium, right ventricle systolic pressure of 48 consistent with moderate pulmonary hypertension. No recent CAT scan for review, no d-dimer however patient is chronically anticoagulated, creatinine baseline would be 1.1-1.3, last hemoglobin A1c of 5.24 September 2017 CO2 levels at that time was 31 He was seen by Dr. Solorzano in the office today, and was noted to be dyspneic, with A. fib RVR, patient has blue lips when seen, him a patient slightly metabolic acidotic, looks like he is compensated, INR off 4, creatinine of 1.38 slightly higher than baseline. Patient has a chest x-ray of extensive pulmonary infiltrates, significantly worsened old exam, related to pulmonary fibrosis heart failure or interstitial pneumonia. There is no pleural effusions no cardiomegaly Cardiology is consulted and is currently on Lasix 40 mg every 8 hours 11/03: The patient was seen today, he reports shortness of breath has improved slightly. He completed a chest CT that showed interstitial lung disease and interstitial pneumonia. Will continue on Zosyn, sputum cultures pending, blood cultures show no growth to date. Pulmonary on consult, who recommends to continue Sildenafil, steroids, nebulizer, and Duonebs. Cardiology also on consult, who recommends to continue with IV diuresis, anticoagulation, beta jacinto, and NASIR inhibitor. He continues on 4L nasal canula, o2 saturation remains above 93%. He will also continue with flutter valve and incentive spirometry. 11/04: Patient was evaluated sitting up in the bed with family at bedside. He reports breathing has improved slightly, still has productive cough. Infectious disease consulted for interstitial pneumonitis. He will continue on Zosyn, blood and sputum cultures are still pending. Heart rate has been well controlled, low 100s, he is down approximately 3 kg from admission weight. 11/05: Patient is currently on Lasix 40 mg every 8 hours as well as Solu-Medrol 40 mg every 12 hours. We will switch Solu-Medrol to oral prednisone for the morning. His blood pressures on the low side for which lisinopril decreased. INR remains high at 4.6 and Coumadin is held for today. Nursing to ambulate patient to evaluate for home O2 need. Dr. Wilson has planned BiPAP option for him as he cannot tolerate the CPAP. Dr. Diaz has discontinued antibiotics. Dr. Dominguez will decrease Lasix 40 mg orally twice daily. He denies having any fever, chills, diarrhea. Anticipate discharge home tomorrow. 11/06: Patient has been cleared for discharge by pulmonary medicine with plan for follow-up with Dr. Desir. INR is 5.5, potassium 4.1, BUN 45 and creatinine 1.18. Patient has been cleared for discharge by cardiology. Patient is anxious for discharge. Coumadin will be dosed with 7.5 mg every day except for 5 mg on Thursday and Thursday. Patient will be off Coumadin and resume Thursday. INR is ordered for Thursday. Patient will be discharged home today in stable condition. Discharge diagnoses: 1. Acute hypoxic with hypercarbic respiratory failure secondary to acute diastolic heart failure. Pneumonia has been ruled out. 2. Atrial fibrillation with rapid ventricular response with history of chronic atrial fibrillation. 3. Supratherapeutic INR on Coumadin. 4. Secondary Moderate pulmonary hypertension with systolic pressure of 48, secondary to obstructive sleep apnea, noncompliant CPAP, followed with Dr. Rm for pulmonary hypertension clinic, patient had a right heart cath which did not show true pulmonary hypertension 5. Obstructive sleep apnea, noncompliance to CPAP secondary to discomfort and PTSD related to its use, pulmonary to evaluate for possible needs outpatient including BiPAP. Advocated encourage to pursue weight loss 6 chronic dependent edema, leg swelling is at baseline 7. Hypertension. 8. Acute on chronic diastolic heart failure. 9. Benign prostatic hypertrophy. 10. Acute renal insufficiency with CKD stage III, monitor creatinine, possibly ATN, avoid nephrotoxins and hypotension. No acute kidney injury 11. Hyperlipidemia. 12. Gout unspecified. 13. Chronic low back pain and generalized osteoarthritis, stable. 14. Diabetes mellitus type 2 with steroid induced hyperglycemia, no current maintenance medication. Discharge plan: Return home Impression and plan of care have been directed as dictated by the signing physician. Linda Maloney nurse practitioner acting as scribe for signing physician. Patient Condition at Discharge: Good Plan - Discharge Summary Discharge Rx Participant: No New Discharge Prescriptions: New Budesonide-Formot 160-4.5 Mcg [Symbicort 160-4.5 Mcg Inhaler] 2 puff INHALATION BID #1 inhaler Diltiazem Oral [Cardizem*] 30 mg PO TID #90 tab guaiFENesin [Mucinex] 600 mg PO Q12HR tablet.er Montelukast [Singulair] 10 mg PO HS #30 tab predniSONE 0 mg PO DIRECTED #45 tab Continue Spironolactone [Aldactone] 25 mg PO DAILY Pravastatin Sodium [Pravachol] 20 mg PO HS Allopurinol [Zyloprim] 100 mg PO HS Potassium Chloride [Klor-Con 10] 10 meq PO HS Colchicine [Colcrys] 0.6 mg PO BID Benazepril HCl [Lotensin] 20 mg PO DAILY Doxazosin Mesylate [Cardura] 8 mg PO HS Sildenafil [Revatio] 20 mg PO TID #90 tab Famotidine [Pepcid] 20 mg PO BID #30 tab Furosemide [Lasix] 40 mg PO BID@0900,1600 #60 tab Metoprolol Tartrate [Lopressor] 100 mg PO BID #120 tab Albuterol Inhaler [Ventolin Hfa Inhaler] 2 puff INHALATION RT-QID PRN PRN Reason: Shortness Of Breath Changed Warfarin Sodium [Coumadin] 7.5 mg PO SUMOWETHSA #0 Warfarin Sodium [Coumadin] 5 mg PO TUFR #0 Discharge Medication List Allopurinol [Zyloprim] 100 mg PO HS 12/10/15 [History] Potassium Chloride [Klor-Con 10] 10 meq PO HS 12/10/15 [History] Pravastatin Sodium [Pravachol] 20 mg PO HS 12/10/15 [History] Spironolactone [Aldactone] 25 mg PO DAILY 12/10/15 [History] Benazepril HCl [Lotensin] 20 mg PO DAILY 09/27/16 [History] Colchicine [Colcrys] 0.6 mg PO BID 09/27/16 [History] Doxazosin Mesylate [Cardura] 8 mg PO HS 09/27/16 [History] Sildenafil [Revatio] 20 mg PO TID #90 tab 10/01/16 [Rx] Famotidine [Pepcid] 20 mg PO BID #30 tab 10/15/17 [Rx] Furosemide [Lasix] 40 mg PO BID@0900,1600 #60 tab 10/15/17 [Rx] Metoprolol Tartrate [Lopressor] 100 mg PO BID #120 tab 10/16/17 [Rx] Albuterol Inhaler [Ventolin Hfa Inhaler] 2 puff INHALATION RT-QID PRN 11/02/17 [ History] Budesonide-Formot 160-4.5 Mcg [Symbicort 160-4.5 Mcg Inhaler] 2 puff INHALATION BID #1 inhaler 11/06/17 [Rx] Diltiazem Oral [Cardizem*] 30 mg PO TID #90 tab 11/06/17 [Rx] Montelukast [Singulair] 10 mg PO HS #30 tab 11/06/17 [Rx] Warfarin Sodium [Coumadin] 5 mg PO TUFR #0 11/06/17 [Rx] Warfarin Sodium [Coumadin] 7.5 mg PO SUMOWETHSA #0 11/06/17 [Rx] guaiFENesin [Mucinex] 600 mg PO Q12HR tablet.er 11/06/17 [Rx] predniSONE 0 mg PO DIRECTED #45 tab 11/06/17 [Rx] Follow up Appointment(s)/Referral(s): Elida Dominguez MD [STAFF PHYSICIAN] - 11/26/17 3:15 pm () Gianluca Grissom MD [Primary Care Provider] - 11/12/17 11:30 am (THURSDAY) Antonio Mario MD [STAFF PHYSICIAN] - 11/13/17 3:30 pm (THURSDAY) Ambulatory/Diagnostic Orders: Prothrombin Time INR [LAB.AMB] Location: Determined By Patient Patient Instructions/Handouts: Heart Failure (DC) Activity/Diet/Wound Care/Special Instructions: Resume Coumadin at new dosing on Thursday. Discharge Disposition: HOME SELF-CARE
[2017-11-06] MEDS ORDERED: WARFARIN 5 MG TAB PO SCH (18:00)
== END 2017-11-06 13:43 | disposition home or self-care (01) | DRG 291 ==
LOC: EC 09:19 → 6SEL 11:49
PROVIDERS: ADMIT Family Medicine; ATTEND Family Medicine
DX: I13.0 Hypertensive heart and chronic kidney disease with heart failure and stage 1 through stage 4 chronic kidney disease, or unspecified chronic kidney disease (principal); I50.33 Acute on chronic diastolic (congestive) heart failure; N17.0 Acute kidney failure with tubular necrosis; J96.01 Acute respiratory failure with hypoxia; J96.02 Acute respiratory failure with hypercapnia; E87.2 Acidosis; Z68.41 Body mass index [BMI] 40.0-44.9, adult; E11.22 Type 2 diabetes mellitus with diabetic chronic kidney disease; E11.65 Type 2 diabetes mellitus with hyperglycemia; E66.01 Morbid (severe) obesity due to excess calories; I27.20 Pulmonary hypertension, unspecified; E78.5 Hyperlipidemia, unspecified; E87.5 Hyperkalemia; F43.10 Post-traumatic stress disorder, unspecified; G47.33 Obstructive sleep apnea (adult) (pediatric); G89.29 Other chronic pain; I48.2 Chronic atrial fibrillation; J84.10 Pulmonary fibrosis, unspecified; K21.9 Gastro-esophageal reflux disease without esophagitis; M10.9 Gout, unspecified; M15.9 Polyosteoarthritis, unspecified; N18.3 Chronic kidney disease, stage 3 (moderate); T38.0X5A Adverse effect of glucocorticoids and synthetic analogues, initial encounter; N40.0 Benign prostatic hyperplasia without lower urinary tract symptoms; M54.5 Low back pain; R79.1 Abnormal coagulation profile; I87.8 Other specified disorders of veins; D72.829 Elevated white blood cell count, unspecified; Z79.01 Long term (current) use of anticoagulants; Z79.899 Other long term (current) drug therapy; Z96.651 Presence of right artificial knee joint; Z87.891 Personal history of nicotine dependence; Z91.19 Patient's noncompliance with other medical treatment and regimen; Z90.49 Acquired absence of other specified parts of digestive tract; Z82.3 Family history of stroke; Z82.0 Family history of epilepsy and other diseases of the nervous system
CPT/HCPCS: 36415; 71046; 71250; 80048; 80053; 82550; 82553; 83036; 83605; 83735; 83880; 84145; 84484; 85025; 85610; 85730; 87040; 87070; 87205; 87502; 93005; 94640; 94667; 94760; 99291

== ENCOUNTER 2018-04-05 10:59 | Inpatient (IN) | payer MEDICARE, BC ==
[2018-04-05] MEDS ORDERED: AMPICILLIN-SULBACTAM 3 GM in SODIUM CHLORIDE 0.9% 100 ML IVPB STA (14:52)
--- NOTE | 2018-04-05 14:55 | ED ---
General Adult HPI - General Chief complaint: Skin/Abscess/Foreign Body Stated complaint: Infection on R Buttock Time Seen by Provider: 04/05/18 14:09 Source: patient, family, RN notes reviewed Mode of arrival: ambulatory Limitations: no limitations - History of Present Illness Initial comments: Patient is a pleasant 72-year-old male presenting to the emergency Department with a sore on his right gluteal region. Onset of symptoms was 4 days ago. Patient states at first he thought it was mosquito bite and was itchy. Patient states he did become larger and more irritated and painful since that time. Patient did go to the doctor earlier today who recommended she come to emergency department for computed tomography scan. Patient denies any fevers. No history of similar symptoms previously. - Related Data Home Medications Medication Instructions Recorded Confirmed Allopurinol [Zyloprim] 100 mg PO HS 12/10/15 04/05/18 Potassium Chloride [Klor-Con 10] 10 meq PO HS 12/10/15 04/05/18 Pravastatin Sodium [Pravachol] 20 mg PO HS 12/10/15 04/05/18 Spironolactone [Aldactone] 25 mg PO DAILY 12/10/15 04/05/18 Benazepril HCl [Lotensin] 20 mg PO DAILY 09/27/16 04/05/18 Colchicine [Colcrys] 0.6 mg PO BID 09/27/16 04/05/18 Doxazosin Mesylate [Cardura] 8 mg PO HS 09/27/16 04/05/18 Previous Rx's Medication Instructions Recorded Furosemide [Lasix] 40 mg PO BID@0900,1600 #60 tab 10/15/17 Metoprolol Tartrate [Lopressor] 100 mg PO BID #120 tab 10/16/17 Diltiazem Oral [Cardizem*] 30 mg PO TID #90 tab 11/06/17 Warfarin Sodium [Coumadin] 5 mg PO TUFR #0 11/06/17 Warfarin Sodium [Coumadin] 7.5 mg PO SUMOWETHSA #0 11/06/17 Allergies Allergy/AdvReac Type Severity Reaction Status Date / Time No Known Allergies Allergy Verified 04/05/18 14:00 Review of Systems ROS Statement: Those systems with pertinent positive or pertinent negative responses have been documented in the HPI. ROS Other: All systems not noted in ROS Statement are negative. Constitutional: Denies: fever Eyes: Denies: eye pain ENT: Denies: ear pain Respiratory: Denies: cough Cardiovascular: Denies: chest pain Endocrine: Denies: fatigue Gastrointestinal: Denies: abdominal pain Genitourinary: Denies: dysuria Musculoskeletal: Denies: back pain Skin: Reports: rash Neurological: Denies: weakness Past Medical History Past Medical History: Atrial Fibrillation, Heart Failure, GERD/Reflux, Hyperlipidemia, Hypertension, Osteoarthritis (OA), Prostate Disorder, Sleep Apnea/CPAP/BIPAP Additional Past Medical History / Comment(s): Pt recently admitted to [facility] on with acute respiratory failure 2ndary to interstitial pneumonia/sepsis and CHF. Other hx: Chronic Afib, CHLOE without device, chronic back pain, gout. History of Any Multi-Drug Resistant Organisms: None Reported Past Surgical History: Cholecystectomy, Joint Replacement Additional Past Surgical History / Comment(s): 02/19/17 diagnostic cardiac cath, right total knee arthroplasty, ventral hernia repair Past Anesthesia/Blood Transfusion Reactions: No Reported Reaction Past Psychological History: No Psychological Hx Reported Smoking Status: Former smoker Past Alcohol Use History: Occasional Past Drug Use History: None Reported - Past Family History Father Family Medical History: No Reported History Additional Family Medical History / Comment(s): Dad at age 89 from stroke. Mother Family Medical History: No Reported History Additional Family Medical History / Comment(s): Mother is alive at age 90 with dementia. Sister(s) Additional Family Medical History / Comment(s): Patient has 2 sisters with no major medical problems. Patient does not have any brothers. Patient has 2 adult children with no major medical problems. General Exam Limitations: no limitations General appearance: alert, in no apparent distress, obese Head exam: Present: atraumatic Eye exam: Present: normal appearance Neck exam: Present: normal inspection Respiratory exam: Present: normal lung sounds bilaterally Cardiovascular Exam: Present: regular rate, irregular rhythm GI/Abdominal exam: Present: soft. Absent: tenderness Rectal exam: Present: other (Right gluteal region with area of cellulitis and mild induration and tenderness, approximately 18 cm. There is not appear to be contact the rectum.) Extremities exam: Present: normal inspection Neurological exam: Present: alert Psychiatric exam: Present: normal affect, normal mood Skin exam: Present: erythema (Right gluteal region) Course Vital Signs 04/05/18 04/05/18 11:05 17:18 Temperature 98.3 F Pulse Rate 96 96 Respiratory 20 18 Rate Blood Pressure 106/60 90/60 O2 Sat by Pulse 98 97 Oximetry - Reevaluation(s) Reevaluation #1: 04/05/18 17:47 Patient does meet sepsis criteria diagnosed at 1747. Blood culture and lactic acid and IV antibiotics have been ordered. EKG Findings - EKG Comments: EKG Findings:: A. fib with rate of 92. QRS 108. QT 388. QTC 479. Left axis. Incomplete right bundle-branch block. No acute ST change. Medical Decision Making - Medical Decision Making Patient reevaluated and updated. Case was discussed in detail with Dr. Espino, covering for Dr. Grissom. He will admit and requests Zosyn and vancomycin as well as consult with infectious disease, Dr. Monaco. - Lab Data Result diagrams: 04/05/18 14:57 04/05/18 14:57 Lab Results 04/05/18 04/05/18 04/05/18 Range/Units 14:17 14:57 14:57 WBC 14.6 H (3.8-10.6) k/uL RBC 4.57 (4.30-5.90) m/uL Hgb 13.0 (13.0-17.5) gm/dL Hct 40.0 (39.0-53.0) % MCV 87.6 (80.0-100.0) fL MCH 28.5 (25.0-35.0) pg MCHC 32.5 (31.0-37.0) g/dL RDW 13.5 (11.5-15.5) % Plt Count 110 L (150-450) k/uL Neutrophils % 81 % Lymphocytes % 8 % Monocytes % 9 % Eosinophils % 0 % Basophils % 0 % Neutrophils # 11.8 H (1.3-7.7) k/uL Lymphocytes # 1.2 (1.0-4.8) k/uL Monocytes # 1.3 H (0-1.0) k/uL Eosinophils # 0.1 (0-0.7) k/uL Basophils # 0.0 (0-0.2) k/uL PT (9.0-12.0) sec INR (<1.2) APTT (22.0-30.0) sec Sodium 139 (137-145) mmol/L Potassium 4.3 (3.5-5.1) mmol/L Chloride 103 (98-107) mmol/L Carbon Dioxide 25 (22-30) mmol/L Anion Gap 11 mmol/L BUN 21 H (9-20) mg/dL Creatinine 1.17 (0.66-1.25) mg/dL Est GFR (CKD-EPI)AfAm 73 (>60 ml/min/1.73 sqM) Est GFR (CKD-EPI)NonAf 63 (>60 ml/min/1.73 sqM) Glucose 95 (74-99) mg/dL Plasma Lactic Acid Virgilio (0.7-2.0) mmol/L Calcium 9.1 (8.4-10.2) mg/dL Total Bilirubin 1.3 (0.2-1.3) mg/dL AST 23 (17-59) U/L ALT 21 (21-72) U/L Alkaline Phosphatase 67 (38-126) U/L Total Protein 6.8 (6.3-8.2) g/dL Albumin 4.0 (3.5-5.0) g/dL Urine Color Yellow Urine Appearance Clear (Clear) Urine pH 5.5 (5.0-8.0) Ur Specific [place] 1.029 (1.001-1.035) Urine Protein 1+ H (Negative) Urine Glucose (UA) Negative (Negative) Urine Ketones Negative (Negative) Urine Blood Negative (Negative) Urine Nitrite Negative (Negative) Urine Bilirubin Negative (Negative) Urine Urobilinogen <2.0 (<2.0) mg/dL Ur Leukocyte Esterase Negative (Negative) Urine RBC 1 (0-5) /hpf Urine WBC 2 (0-5) /hpf Hyaline Casts 3 H (0-2) /lpf Urine Mucus Rare H (None) /hpf 04/05/18 04/05/18 Range/Units 14:57 14:57 WBC (3.8-10.6) k/uL RBC (4.30-5.90) m/uL Hgb (13.0-17.5) gm/dL Hct (39.0-53.0) % MCV (80.0-100.0) fL MCH (25.0-35.0) pg MCHC (31.0-37.0) g/dL RDW (11.5-15.5) % Plt Count (150-450) k/uL Neutrophils % % Lymphocytes % % Monocytes % % Eosinophils % % Basophils % % Neutrophils # (1.3-7.7) k/uL Lymphocytes # (1.0-4.8) k/uL Monocytes # (0-1.0) k/uL Eosinophils # (0-0.7) k/uL Basophils # (0-0.2) k/uL PT 21.6 H (9.0-12.0) sec INR 2.4 H (<1.2) APTT 40.8 H (22.0-30.0) sec Sodium (137-145) mmol/L Potassium (3.5-5.1) mmol/L Chloride (98-107) mmol/L Carbon Dioxide (22-30) mmol/L Anion Gap mmol/L BUN (9-20) mg/dL Creatinine (0.66-1.25) mg/dL Est GFR (CKD-EPI)AfAm (>60 ml/min/1.73 sqM) Est GFR (CKD-EPI)NonAf (>60 ml/min/1.73 sqM) Glucose (74-99) mg/dL Plasma Lactic Acid Virgilio 1.2 (0.7-2.0) mmol/L Calcium (8.4-10.2) mg/dL Total Bilirubin (0.2-1.3) mg/dL AST (17-59) U/L ALT (21-72) U/L Alkaline Phosphatase (38-126) U/L Total Protein (6.3-8.2) g/dL Albumin (3.5-5.0) g/dL Urine Color Urine Appearance (Clear) Urine pH (5.0-8.0) Ur Specific [place] (1.001-1.035) Urine Protein (Negative) Urine Glucose (UA) (Negative) Urine Ketones (Negative) Urine Blood (Negative) Urine Nitrite (Negative) Urine Bilirubin (Negative) Urine Urobilinogen (<2.0) mg/dL Ur Leukocyte Esterase (Negative) Urine RBC (0-5) /hpf Urine WBC (0-5) /hpf Hyaline Casts (0-2) /lpf Urine Mucus (None) /hpf - Radiology Data Radiology results: report reviewed (Computed tomography scan of the pelvis does show right gluteal subcutaneous inflammatory process with phlegmon and surrounding inflammation. No drainable abscess.) Critical Care Time Critical Care Time: Yes Total Critical Care Time: 32 Disposition Clinical Impression: Cellulitis, gluteal, right, Sepsis Disposition: ADMITTED IP TO THIS HOSP Is patient prescribed a controlled substance at d/c from ED?: No Referrals: Gianluca Grissom MD [Primary Care Provider] - 1-2 days Decision Time: 17:48
[2018-04-05] MEDS: SODIUM CHLORIDE 0.9% 500 ML IV SCH ×2 (15:08→15:58)
[2018-04-05 15:30] LABS: Basophils % (A) 0 %; Calcium 9.1 mg/dL (8.4-10.2); Eosinophils # (A) 0.1 k/uL (0-0.7); Eosinophils % (A) 0 %; INR 2.4 (<1.2); Lymphocytes # (A) 1.2 k/uL (1.0-4.8); Lymphocytes % (A) 8 %; MCH 28.5 pg (25.0-35.0); MCHC 32.5 g/dL (31.0-37.0); MCV 87.6 fL (80.0-100.0); Mean Platelet Volume 6.5; Monocytes # (A) 1.3 k/uL (0-1.0); Monocytes % (A) 9 %; Neutrophils # (A) 11.8 k/uL (1.3-7.7); Neutrophils % (A) 81 %; Partial Thromboplastin Time 40.8 sec (22.0-30.0); Platelet Count 110 k/uL (150-450); Potassium 4.3 mmol/L (3.5-5.1); Prothrombin Time 21.6 sec (9.0-12.0); RBC 4.57 m/uL (4.30-5.90); RDW 13.5 % (11.5-15.5); Total Bilirubin 1.3 mg/dL (0.2-1.3); Total Protein 6.8 g/dL (6.3-8.2); WBC 14.6 k/uL (3.8-10.6)
--- NOTE | 2018-04-05 16:37 | CT ---
EXAMINATION TYPE: CT pelvis w con DATE OF EXAM: 04/05/2018 COMPARISON: HISTORY: Right gluteal infection. CT DLP: 2351 mGycm Automated exposure control for dose reduction was used. Contrast enhanced CT of the pelvis was perfor med. GI contrast is not administered. CONTRAST: Performed with IV Contrast, patient injected with 100 mL of Isovue M300. FINDINGS: There is a right subcutaneous gluteal inflammatory process with phlegmon and surrounding inflammatory change. No drainable abscess is appreciated. Skin edema noted as well. No evidence for fistula this time. No additional areas of infection noted. Pelvic structures are unremarkable. No evidence for pel paloma mass. Prostate gland is of normal size. Atheromatous change abdominal aorta. IMPRESSION: There is a right subcutaneous gluteal inflammatory process with phlegmon and surrounding inflammatory change. No drainable abscess is appreciated.
[2018-04-05 17:28] LABS: Appearance,Urine Clear (Clear); Bilirubin,Urine Negative (Negative); Blood,Urine Negative (Negative); Color,Urine Yellow; Glucose,Urine (UA) Negative (Negative); Hyaline Casts,Urine 3 /lpf (0-2); Ketones,Urine Negative (Negative); Leukocyte Esterase,Urine Negative (Negative); Mucus,Urine Rare /hpf; Nitrite,Urine Negative (Negative); PH, Urine 5.5 (5.0-8.0); Protein,Urine 1+ (Negative); RBC,Urine 1 /hpf (0-5); Specific Gravity,Urine 1.029 (1.001-1.035); Urobilinogen,Urine <2.0 mg/dL (<2.0); WBC,Urine 2 /hpf (0-5)
[2018-04-05] MEDS ORDERED: VANCOMYCIN IV PER PHARMACY 1 EACH MISC MISCELLANE PRN (17:49)
[2018-04-05] MEDS ORDERED: NALOXONE 0.4 MG/ML 1 ML VIAL IV PRN (17:50)
[2018-04-05] MEDS ORDERED: ACETAMINOPHEN TAB 325 MG TAB PO PRN (17:50)
[2018-04-05] MEDS ORDERED: AMPICILLIN-SULBACTAM 3 GM in SODIUM CHLORIDE 0.9% 100 ML IVPB SCH (18:00)
[2018-04-05] MEDS ORDERED: VANCOMYCIN 2,500 MG in SODIUM CHLORIDE 0.9% 500 ML IVPB ONE (18:00)
[2018-04-05] MEDS ORDERED: SODIUM CHLORIDE 0.9% 500 ML IV STA (18:04)
[2018-04-05] MEDS ORDERED: SODIUM CHLORIDE 0.9% 1,000 ML IV STA (18:04)
[2018-04-05] MEDS: WARFARIN 7.5 MG TAB PO SCH (22:03)
[2018-04-05] MEDS: PIPERACILLIN-TAZOBACTAM 3.375 GM in DEXTROSE/WATER 1 50ML.BAG IVPB SCH (22:06)
[2018-04-05] MEDS: PRAVASTATIN SODIUM 20 MG TAB PO SCH (22:07)
[2018-04-05] MEDS: ALLOPURINOL 100 MG TAB PO SCH (22:07)
[2018-04-05] MEDS: METOPROLOL TARTRATE 50 MG TAB PO SCH (22:07)
[2018-04-05] MEDS: SODIUM CHLORIDE 0.9% 1,000 ML IV SCH (22:08)
[2018-04-05] MEDS: POTASSIUM CHLORIDE ER 10 MEQ TAB.ER.PRT PO SCH (22:08)
[2018-04-06] MEDS: DILTIAZEM ORAL 30 MG TAB PO SCH ×4 (00:22→21:27)
[2018-04-06] MEDS: DOXAZOSIN 4 MG TAB PO SCH ×2 (00:26→21:27)
[2018-04-06] MEDS: SODIUM CHLORIDE 0.9% 1,000 ML IV SCH ×3 (01:44→19:00)
[2018-04-06] MEDS: PIPERACILLIN-TAZOBACTAM 3.375 GM in DEXTROSE/WATER 1 50ML.BAG IVPB SCH ×3 (04:51→21:25)
[2018-04-06] MEDS: VANCOMYCIN 2,500 MG in SODIUM CHLORIDE 0.9% 500 ML IVPB SCH (08:25)
[2018-04-06] MEDS: METOPROLOL TARTRATE 50 MG TAB PO SCH ×2 (08:26→21:27)
[2018-04-06] MEDS: FUROSEMIDE 40 MG TAB PO SCH ×2 (08:26→16:24)
[2018-04-06] MEDS: COLCHICINE 0.6 MG EACH PO SCH (08:26)
[2018-04-06] MEDS: SPIRONOLACTONE 25 MG TAB PO SCH (08:26)
[2018-04-06] MEDS: LISINOPRIL 20 MG TAB PO SCH ×2 (08:26→08:31)
[2018-04-06 08:30] LABS: INR 2.4 (<1.2); Prothrombin Time 21.6 sec (9.0-12.0)
[2018-04-06 08:55] LABS: Calcium 8.5 mg/dL (8.4-10.2); Potassium 4.5 mmol/L (3.5-5.1)
[2018-04-06 08:57] LABS: Basophils % (A) 0 %; Eosinophils # (A) 0.1 k/uL (0-0.7); Eosinophils % (A) 1 %; HCT 37.8 % (39.0-53.0); HGB 12.3 gm/dL (13.0-17.5); Lymphocytes # (A) 0.8 k/uL (1.0-4.8); Lymphocytes % (A) 7 %; MCH 28.7 pg (25.0-35.0); MCHC 32.6 g/dL (31.0-37.0); Mean Platelet Volume 6.9; Monocytes # (A) 1.1 k/uL (0-1.0); Monocytes % (A) 9 %; Neutrophils # (A) 9.2 k/uL (1.3-7.7); Neutrophils % (A) 80 %; RBC 4.29 m/uL (4.30-5.90); RDW 13.6 % (11.5-15.5); WBC 11.5 k/uL (3.8-10.6)
[2018-04-06 11:17] LABS: Platelet Count 95 k/uL (150-450)
--- NOTE | 2018-04-06 12:41 | P.HPIM ---
History of Present Illness H&P Date: 04/06/18 This is a 72-year-old male patient of Dr. Grissom and Dr. Dominguez with known medical history of hypertension, hyperlipidemia and benign prostatic hypertrophy, chronic back pain, gout, osteoarthritis and borderline diabetes, chronic atrial fibrillation, pulmonary hypertension, obstructive sleep apnea unable to tolerate CPAP. He has had admissions at the beginning of this year for pneumonia and acute diastolic heart failure. His last echocardiogram revealed EF of 55-60%, LVH, severely dilated left atrium, right ventricular systolic pressure 48 consistent with moderate pulmonary hypertension. Patient gives history that on night he felt there was a tender area that he thought was a bug bite like a mosquito and it was very itchy. By the next day was quite tender. He applied bacitracin and covered. Yesterday he had an appointment to get his Coumadin checked and well in the office he saw Dr. Jenkins who told him to come into the hospital to have this area checked and start antibiotics. He denies having any fever or chills. He states it is very swollen and warm to the touch. The area has been draining. Patient presented to [facility] emergency center for evaluation area and patient was afebrile. EKG was A. fib at a rate of 92, white count 14.6, BUN 21 creatinine 1.17. Lactic acid 1.2, INR 2.4. CT of the pelvis with contrast revealed a right subcutaneous gluteal inflammatory process with phlegmon and surrounding inflammatory change. No drainable abscesses appreciated. Patient has been seen by Dr. Houser and started on Zosyn and vancomycin. Wound culture was obtained this morning. Consult has been added in for Dr. Vaz. Review of Systems All systems: negative Constitutional: Denies chills, Denies fatigue, Denies fever, Denies lethargy, Denies malaise, Denies poor appetite, Denies weight loss Eyes: denies blurred vision, denies pain Ears, nose, mouth and throat: Denies dysphagia, Denies headache, Denies sore throat, Denies vertigo Cardiovascular: Denies chest pain, Denies lightheadedness, Denies shortness of breath, Denies syncope Respiratory: Denies congestion, Denies cough, Denies cough with sputum, Denies dyspnea, Denies excessive sputum, Denies hemoptysis, Denies wheezing Gastrointestinal: Denies abdominal pain, Denies diarrhea, Denies loss of appetite, Denies nausea, Denies vomiting Genitourinary: Denies dysuria Musculoskeletal: Denies myalgias Integumentary: Reports wounds, Denies pruritus, Denies rash Neurological: Denies numbness, Denies weakness Psychiatric: Denies anxiety, Denies depression Endocrine: Denies fatigue, Denies weight change Past Medical History Past Medical History: Atrial Fibrillation, Heart Failure, GERD/Reflux, Hyperlipidemia, Hypertension, Osteoarthritis (OA), Prostate Disorder, Sleep Apnea/CPAP/BIPAP Additional Past Medical History / Comment(s): Pt recently admitted to [facility] on with acute respiratory failure 2ndary to interstitial pneumonia/sepsis and CHF. Other hx: Chronic Afib, CHLOE without device,occ back pain, gout. History of Any Multi-Drug Resistant Organisms: None Reported Past Surgical History: Cholecystectomy, Joint Replacement Additional Past Surgical History / Comment(s): 02/19/17 diagnostic cardiac cath, right total knee arthroplasty, ventral hernia repair Past Anesthesia/Blood Transfusion Reactions: No Reported Reaction Smoking Status: Former smoker Additional Past Alcohol Use History / Comment(s): He was a smoker of one pack per day for 10 years and quit 40 years ago. He denies any medical marijuana, marijuana or street drug use. He does drink alcohol 3-4 beers every day for 10- 15 years. He is and lives at home with his . - Past Family History Father Family Medical History: No Reported History Additional Family Medical History / Comment(s): Dad at age 89 from stroke. Mother Family Medical History: No Reported History Additional Family Medical History / Comment(s): Mother is alive at age 90 with dementia. Sister(s) Additional Family Medical History / Comment(s): Patient has 2 sisters with no major medical problems. Patient does not have any brothers. Patient has 2 adult children with no major medical problems. Medications and Allergies Home Medications Medication Instructions Recorded Confirmed Type Allopurinol [Zyloprim] 100 mg PO HS 12/10/15 04/05/18 History Potassium Chloride [Klor-Con 10] 10 meq PO HS 12/10/15 04/05/18 History Pravastatin Sodium [Pravachol] 20 mg PO HS 12/10/15 04/05/18 History Spironolactone [Aldactone] 25 mg PO DAILY 12/10/15 04/05/18 History Benazepril HCl [Lotensin] 20 mg PO DAILY 09/27/16 04/05/18 History Colchicine [Colcrys] 0.6 mg PO BID 09/27/16 04/05/18 History Doxazosin Mesylate [Cardura] 8 mg PO HS 09/27/16 04/05/18 History Furosemide [Lasix] 40 mg PO BID@0900,1600 #60 tab 10/15/17 04/05/18 Rx Metoprolol Tartrate [Lopressor] 100 mg PO BID #120 tab 10/16/17 04/05/18 Rx Diltiazem Oral [Cardizem*] 30 mg PO TID #90 tab 11/06/17 04/05/18 Rx Warfarin Sodium [Coumadin] 5 mg PO TUFR #0 11/06/17 04/05/18 Rx Warfarin Sodium [Coumadin] 7.5 mg PO SUMOWETHSA #0 11/06/17 04/05/18 Rx Allergies Allergy/AdvReac Type Severity Reaction Status Date / Time No Known Allergies Allergy Verified 04/05/18 14:00 Physical Exam Vitals: Vital Signs Temp Pulse Pulse Resp BP BP Pulse Ox 04/06/18 08:20 85 100/66 04/06/18 06:30 98.4 F 81 16 109/64 98 04/06/18 00:23 95 102/70 04/06/18 00:18 100.7 F H 04/06/18 00:00 95 16 04/05/18 22:30 98.5 F 106 H 16 103/59 95 04/05/18 20:08 97.3 F L 104 H 16 100/70 97 04/05/18 19:17 99.0 F 96 18 105/65 98 04/05/18 17:45 98/58 04/05/18 17:18 96 18 90/60 97 04/05/18 11:05 98.3 F 96 20 106/60 98 Intake and Output 04/05/18 04/06/18 04/06/18 22:59 06:59 14:59 Output Total 500 Balance -500 Output: Urine 500 Other: # Voids 1 0 # Bowel Movements 0 0 General appearance: cooperative, morbidly obese - EENT Eyes: EOMI, PERRLA, dentition normal, normal appearance ENT: NA/AT, normal oropharynx - Neck Neck: normal ROM - Respiratory Respiratory: bilateral: CTA, negative: diminished, dullness - Cardiovascular Rhythm: irregularly irregular Heart sounds: normal: S1, S2, systolic ejection murmur - Gastrointestinal General gastrointestinal: normal bowel sounds, soft - Integumentary Integumentary: decreased turgor, normal - Neurologic Neurologic: CNII-XII intact - Musculoskeletal Musculoskeletal: generalized weakness, strength equal bilaterally - Psychiatric Psychiatric: A&O x's 3, appropriate affect, intact judgment & insight Results CBC & Chem 7: 04/06/18 07:46 04/06/18 07:46 Labs: Abnormal Lab Results - Last 24 Hours (Table) 04/05/18 04/05/18 04/05/18 Range/Units 14:17 14:57 14:57 WBC 14.6 H (3.8-10.6) k/uL RBC (4.30-5.90) m/uL Hgb (13.0-17.5) gm/dL Hct (39.0-53.0) % Plt Count 110 L (150-450) k/uL Neutrophils # 11.8 H (1.3-7.7) k/uL Monocytes # 1.3 H (0-1.0) k/uL PT (9.0-12.0) sec INR (<1.2) APTT (22.0-30.0) sec Chloride (98-107) mmol/L BUN 21 H (9-20) mg/dL Glucose (74-99) mg/dL Urine Protein 1+ H (Negative) Hyaline Casts 3 H (0-2) /lpf Urine Mucus Rare H (None) /hpf 04/05/18 04/06/18 04/06/18 Range/Units 14:57 07:46 07:46 WBC 11.5 H (3.8-10.6) k/uL RBC 4.29 L (4.30-5.90) m/uL Hgb 12.3 L (13.0-17.5) gm/dL Hct 37.8 L (39.0-53.0) % Plt Count (150-450) k/uL Neutrophils # (1.3-7.7) k/uL Monocytes # (0-1.0) k/uL PT 21.6 H 21.6 H (9.0-12.0) sec INR 2.4 H 2.4 H (<1.2) APTT 40.8 H (22.0-30.0) sec Chloride (98-107) mmol/L BUN (9-20) mg/dL Glucose (74-99) mg/dL Urine Protein (Negative) Hyaline Casts (0-2) /lpf Urine Mucus (None) /hpf 04/06/18 Range/Units 07:46 WBC (3.8-10.6) k/uL RBC (4.30-5.90) m/uL Hgb (13.0-17.5) gm/dL Hct (39.0-53.0) % Plt Count (150-450) k/uL Neutrophils # (1.3-7.7) k/uL Monocytes # (0-1.0) k/uL PT (9.0-12.0) sec INR (<1.2) APTT (22.0-30.0) sec Chloride 109 H (98-107) mmol/L BUN (9-20) mg/dL Glucose 115 H (74-99) mg/dL Urine Protein (Negative) Hyaline Casts (0-2) /lpf Urine Mucus (None) /hpf Microbiology - Last 24 Hours (Table) 04/05/18 14:17 Urine Culture - Preliminary Urine,Voided Thrombosis Risk Factor Assmnt - DVT/VTE Prophylaxis DVT/VTE Prophylaxis: Pharmacologic Prophylaxis ordered - Choose All That Apply Each Factor Represents 1 point: Obesity (BMI >25) Other Risk Factors: Yes Each Risk Factor Represents 2 Points: Age 61-74 years Thrombosis Risk Factor Assessment Total Risk Factor Score: 3 Thrombosis Risk Factor Assessment Level: Moderate Risk Assessment and Plan Plan: 1. Abscess right buttock. CAT scan as above. Dr. Monaco has evaluated. Patient is currently on Zosyn and vancomycin. Wound culture has been obtained. Blood cultures are in progress. Consult placed with Dr. Vaz. 2. Chronic atrial fibrillation. Continue Cardizem 30 mg 3 times daily, Lopressor 100 mg twice daily and Coumadin at home dosing. Continue to monitor INR. 3. Secondary moderate pulmonary hypertension with systolic pressure of 48 secondary to obstructive sleep apnea, unable to tolerate CPAP and follow-up with Dr Karlee for pulmonary hypertension clinic. 4. Hypertension. Continue the Cipro 20 mg daily, Lopressor 100 mg twice daily , Aldactone 25 mg daily. 5. Chronic heart failure. Continue Lasix 40 mg PO every 12 hours and Aldactone 25 mg daily. 6. Benign prostatic hypertrophy. Continue Cardura. 7. Hyperlipidemia. Continue Pravachol. 8. Gout unspecified. Continue colchicine and allopurinol. 9. Chronic low back pain and generalized osteoarthritis, stable. 10. Borderline diabetes. Humalog scale. Last hemoglobin A1c was 6.3.. 11. DVT prophylaxis. Patient is on Coumadin. 12. Gastrointestinal prophylaxis. Protonix Patient will be admitted to the hospital for a minimum of 2 night stay. Discharge plan: return home. Impression and plan of care have been directed as dictated by the signing physician. Linda Maloney nurse practitioner acting as scribe for signing physician.
[2018-04-06 16:55] LABS: Glucose,Whole Blood 104 mg/dL (75-99)
--- NOTE | 2018-04-06 17:19 | P.GSCN ---
History of Present Illness Consult date: 04/06/18 Reason for Consult: Section moderate gluteal area History of present illness: The patient is a pleasant 9-year-old man who developed some itching on the right gluteal area on Thursday night. On Thursday he thought possibly was a mosquito bite with some swelling and put some antibiotic ointment and a dressing on it. It bothered him more on Thursday. He had an appointment with his primary care doctor on Thursday so pointed this out when he went for his office visit and was subsequently admitted. He denies any trauma in the area. No history of infections like this in the past. He did have an infection in the left foot from a foot injury several years ago. Denies fevers or chills, denies purulent drainage. It's been draining today. Review of Systems All systems: negative (He does have problems with bilateral lower legs but has not been following up on this) Past Medical History Past Medical History: Atrial Fibrillation, Heart Failure, GERD/Reflux, Hyperlipidemia, Hypertension, Osteoarthritis (OA), Prostate Disorder, Sleep Apnea/CPAP/BIPAP Additional Past Medical History / Comment(s): Pt recently admitted to [facility] on with acute respiratory failure 2ndary to interstitial pneumonia/sepsis and CHF. Other hx: Chronic Afib, CHLOE without device,occ back pain, gout. Chronic venous stasis History of Any Multi-Drug Resistant Organisms: None Reported Past Surgical History: Cholecystectomy, Joint Replacement Additional Past Surgical History / Comment(s): 02/19/17 diagnostic cardiac cath, right total knee arthroplasty, ventral hernia repair Past Anesthesia/Blood Transfusion Reactions: No Reported Reaction Smoking Status: Former smoker Additional Past Alcohol Use History / Comment(s): He was a smoker of one pack per day for 10 years and quit 40 years ago. He denies any medical marijuana, marijuana or street drug use. He does drink alcohol 3-4 beers every day for 10- 15 years. He is and lives at home with his . - Past Family History Father Family Medical History: No Reported History Additional Family Medical History / Comment(s): Dad at age 89 from stroke. Mother Family Medical History: No Reported History Additional Family Medical History / Comment(s): Mother is alive at age 90 with dementia. Sister(s) Additional Family Medical History / Comment(s): Patient has 2 sisters with no major medical problems. Patient does not have any brothers. Patient has 2 adult children with no major medical problems. Medications and Allergies Home Medications Medication Instructions Recorded Confirmed Type Allopurinol [Zyloprim] 100 mg PO HS 12/10/15 04/05/18 History Potassium Chloride [Klor-Con 10] 10 meq PO HS 12/10/15 04/05/18 History Pravastatin Sodium [Pravachol] 20 mg PO HS 12/10/15 04/05/18 History Spironolactone [Aldactone] 25 mg PO DAILY 12/10/15 04/05/18 History Benazepril HCl [Lotensin] 20 mg PO DAILY 09/27/16 04/05/18 History Colchicine [Colcrys] 0.6 mg PO BID 09/27/16 04/05/18 History Doxazosin Mesylate [Cardura] 8 mg PO HS 09/27/16 04/05/18 History Furosemide [Lasix] 40 mg PO BID@0900,1600 #60 tab 10/15/17 04/05/18 Rx Metoprolol Tartrate [Lopressor] 100 mg PO BID #120 tab 10/16/17 04/05/18 Rx Diltiazem Oral [Cardizem*] 30 mg PO TID #90 tab 11/06/17 04/05/18 Rx Warfarin Sodium [Coumadin] 5 mg PO TUFR #0 11/06/17 04/05/18 Rx Warfarin Sodium [Coumadin] 7.5 mg PO SUMOWETHSA #0 11/06/17 04/05/18 Rx Allergies Allergy/AdvReac Type Severity Reaction Status Date / Time No Known Allergies Allergy Verified 04/05/18 14:00 Surgical - Exam Osteopathic Statement: *. No significant issues noted on an osteopathic structural exam other than those noted in the History and Physical/Consult. Vital Signs Temp Pulse Resp BP Pulse Ox 98.3 F 96 20 106/60 98 04/05/18 11:05 04/05/18 11:05 04/05/18 11:05 04/05/18 11:05 04/05/18 11:05 - General well developed, well nourished, no distress - Eyes normal ocular movement - Cardiovascular Rhythm: regular - Integumentary There is a large area on the inferior/medial aspect of the buttock at least 15- 20 cm in size where there is erythema, ecchymosis, induration. Superior and medial near the cleft there is an area about 4 cm in size with superficial skin necrosis and ecchymosis. There is a moderate amount of serous drainage. No obvious purulence. Minimally tender. He also appears to have bilateral lower extremity peripheral venous stasis. There is chronic skin discoloration and thickening with several areas of eschar. - Psychiatric oriented to time, oriented to person, oriented to place, speech is normal, memory intact Results - Labs 04/06/18 07:46 04/06/18 07:46 Abnormal Lab Results - Last 24 Hours (Table) 04/05/18 04/06/18 04/06/18 Range/Units 14:17 07:46 07:46 WBC 11.5 H (3.8-10.6) k/uL RBC 4.29 L (4.30-5.90) m/uL Hgb 12.3 L (13.0-17.5) gm/dL Hct 37.8 L (39.0-53.0) % Plt Count 95 L (150-450) k/uL Neutrophils # 9.2 H (1.3-7.7) k/uL Lymphocytes # 0.8 L (1.0-4.8) k/uL Monocytes # 1.1 H (0-1.0) k/uL PT 21.6 H (9.0-12.0) sec INR 2.4 H (<1.2) Chloride (98-107) mmol/L Glucose (74-99) mg/dL POC Glucose (mg/dL) (75-99) mg/dL Urine Protein 1+ H (Negative) Hyaline Casts 3 H (0-2) /lpf Urine Mucus Rare H (None) /hpf 04/06/18 04/06/18 Range/Units 07:46 16:54 WBC (3.8-10.6) k/uL RBC (4.30-5.90) m/uL Hgb (13.0-17.5) gm/dL Hct (39.0-53.0) % Plt Count (150-450) k/uL Neutrophils # (1.3-7.7) k/uL Lymphocytes # (1.0-4.8) k/uL Monocytes # (0-1.0) k/uL PT (9.0-12.0) sec INR (<1.2) Chloride 109 H (98-107) mmol/L Glucose 115 H (74-99) mg/dL POC Glucose (mg/dL) 104 H (75-99) mg/dL Urine Protein (Negative) Hyaline Casts (0-2) /lpf Urine Mucus (None) /hpf Microbiology - Last 24 Hours (Table) 04/06/18 11:00 Wound Culture - Preliminary Buttock 04/05/18 14:17 Urine Culture - Preliminary Urine,Voided Diabetes panel 04/06/18 Range/Units 07:46 Sodium 139 (137-145) mmol/L Potassium 4.5 (3.5-5.1) mmol/L Chloride 109 H (98-107) mmol/L Carbon Dioxide 22 (22-30) mmol/L BUN 17 (9-20) mg/dL Creatinine 1.04 (0.66-1.25) mg/dL Glucose 115 H (74-99) mg/dL Calcium 8.5 (8.4-10.2) mg/dL Calcium panel 04/06/18 Range/Units 07:46 Calcium 8.5 (8.4-10.2) mg/dL Pituitary panel 04/06/18 Range/Units 07:46 Sodium 139 (137-145) mmol/L Potassium 4.5 (3.5-5.1) mmol/L Chloride 109 H (98-107) mmol/L Carbon Dioxide 22 (22-30) mmol/L BUN 17 (9-20) mg/dL Creatinine 1.04 (0.66-1.25) mg/dL Glucose 115 H (74-99) mg/dL Calcium 8.5 (8.4-10.2) mg/dL Adrenal panel 04/06/18 Range/Units 07:46 Sodium 139 (137-145) mmol/L Potassium 4.5 (3.5-5.1) mmol/L Chloride 109 H (98-107) mmol/L Carbon Dioxide 22 (22-30) mmol/L BUN 17 (9-20) mg/dL Creatinine 1.04 (0.66-1.25) mg/dL Glucose 115 H (74-99) mg/dL Calcium 8.5 (8.4-10.2) mg/dL - Imaging CT scan - pelvis: report reviewed, image reviewed Assessment and Plan (1) Cellulitis, gluteal, right Current Visit: Yes Status: Acute Code(s): L03.317 - CELLULITIS OF BUTTOCK SNOMED Code(s): 49085385 (2) Atrial fibrillation Current Visit: No Status: Acute Code(s): I48.91 - UNSPECIFIED ATRIAL FIBRILLATION SNOMED Code(s): 34619461 (3) Congestive heart failure Current Visit: No Status: Acute Code(s): I50.9 - HEART FAILURE, UNSPECIFIED SNOMED Code(s): 94117045 (4) Chronic venous stasis dermatitis of both lower extremities Current Visit: Yes Status: Acute Code(s): I87.2 - VENOUS INSUFFICIENCY ( CHRONIC) (PERIPHERAL) SNOMED Code(s): 17949434 Plan: The patient's leukocytosis and pain are currently improved with IV antibiotics. We'll monitor this area closely. The superior medial area appears to have some superficial breakdown. I'd be concerned at some point this may require surgical debridement. This CT showed no evidence of any drainable abscess, mostly this was edema. I'll follow closely with you.
[2018-04-06] MEDS ORDERED: WARFARIN 5 MG TAB PO SCH (18:00)
[2018-04-06] MEDS: INSULIN ASPART 100 UNIT/ML 1 ML 10 ML VIAL SQ SCH ×2 (18:28→21:44)
[2018-04-06] MEDS: PRAVASTATIN SODIUM 20 MG TAB PO SCH (21:27)
[2018-04-06] MEDS: ALLOPURINOL 100 MG TAB PO SCH (21:27)
[2018-04-06] MEDS: POTASSIUM CHLORIDE ER 10 MEQ TAB.ER.PRT PO SCH (21:27)
[2018-04-06 22:50] LABS: Hemoglobin A1C 5.6 % (4.0-6.0)
--- NOTE | 2018-04-06 23:58 | CONS ---
CONSULTATION DATE OF SERVICE: 04/06/2018 REASON FOR CONSULTATION: Right gluteal abscess. HISTORY OF PRESENT ILLNESS: The patient is a 72-year-old male who apparently noticed some irritation in his right gluteal area; it was more of an irritation and and itching that has been scratched. The patient did not recall if there was any pimple or any nodule there. Subsequently the area on the right gluteal area has become more swollen, red and painful, pain described to be throbbing, almost 7 to 8 out of 10, and no radiation. The patient did have spontaneous drainage of that area with some blood-stained secretions. With worsening of these findings, the patient went to see his primary care physician, who advised the patient to go to the ER for a CT. The patient did have a CT of the pelvis completed which shows phlegmon with surrounding inflammatory changes but no drainable abscess on the right gluteal area. On arrival in the ER, the patient was afebrile. Subsequently he did spike a fever of 100.7. He did have elevated white count of 14.6. INR was 2.4. Electrolytes has been normal. UA has been negative. Infectious Disease was consulted for further recommendations regarding antibiotic therapy. REVIEW OF SYSTEMS: CONSTITUTIONAL: Positive for weakness along with low-grade fever. EYES: No complaint. ENT: No complaint. RESPIRATORY: No complaint. CARDIOVASCULAR: No complaint. GENITOURINARY: No complaint. GASTROINTESTINAL: No complaint. MUSCULOSKELETAL: No complaint. INTEGUMENTARY: As per HPI. PSYCHOLOGICAL: No complaint. ENDOCRINE: No complaint. NEUROLOGICAL: No complaint. PAST MEDICAL HISTORY: 1. Atrial fibrillation. 2. Heart failure. 3. Gastroesophageal reflux disease. 4. Hypertension. 5. Hyperlipidemia. 6. Osteoarthritis. 7. Benign prostatic hypertrophy. 8. Sleep apnea. PAST SURGICAL HISTORY: 1. Cholecystectomy. 2. Joint replacement. 3. Cardiac catheterization. 4. Right total knee arthroplasty. 5. Ventral hernia repair. SOCIAL HISTORY: Positive history of smoking; quit 40 years ago. Occasionally drinks. No drug use. FAMILY HISTORY: Father at the age of 89 from stroke. Mother alive, 90, with dementia. ALLERGIES: NO KNOWN DRUG ALLERGIES. CURRENT MEDICATIONS: 1. Tylenol. 2. Zyloprim. 3. Colchicine. 4. Diltiazem. 5. Cardura. 6. Lasix. 7. NovoLog. 8. Zestril. 9. Lopressor. 10.Narcan. 11.Zosyn. 12.Pravachol. 13.Aldactone. 14.Vancomycin. 15.Coumadin. PHYSICAL EXAMINATION: Blood pressure is 111/74 with a pulse of 88, temperature 97.6. He is 96% on room air. General description is an elderly male up in the bed in no distress. No tachypnea or accessory muscle of respiration use. HEENT examination shows no pallor or scleral icterus. Oral mucosa membrane is moist. No pharyngeal erythema or thrush. NECK: Trachea is central. No thyromegaly. LUNGS: Unlabored breathing. Clear to auscultation anteriorly. No wheeze or crackle. HEART: S1, S2. Regular rate and rhythm. ABDOMEN: Soft. No tenderness. No guarding or rigidity. No organomegaly. EXTREMITIES: No edema of feet. EXAMINATION OF RIGHT GLUTEAL AREA: The patient did an area of swelling, redness and mild induration. Cultures were obtained after cleaning the area. NEUROLOGICAL: Patient is awake, alert, oriented x3. Mood and affect normal. LABS: Hemoglobin 12.3, white count 14.6, BUN of 17, creatinine 1.04. Electrolytes have been normal. Liver enzymes are normal. Blood culture obtained and currently pending. DIAGNOSTIC IMPRESSION AND PLAN: Patient admitted to hospital with a right gluteal abscess and cellulitis with a question of possible gram-positive skin nelson; however, in view of the close proximity to the GI tract, underlying gram-negative infection is not entirely excluded. PLAN: 1. Wound culture has been obtained to guide further antibiotic therapy. 2. Vancomycin, Pharmacy to dose, target of 15 while watching his kidney function closely along with Zosyn to cover both gram-positive and gram-negative pathogen. 3. Await surgical evaluation for possible drainage of this area, at which time deep culture should be obtained. 4. Will follow up on clinical condition and culture to further adjust medication if needed. Thank you for this consultation. Will follow this patient along with you. MMODL / IJN: [id number] /
[2018-04-07] MEDS: SODIUM CHLORIDE 0.9% 1,000 ML IV SCH ×2 (02:42→11:04)
[2018-04-07] MEDS: PIPERACILLIN-TAZOBACTAM 3.375 GM in DEXTROSE/WATER 1 50ML.BAG IVPB SCH ×3 (04:44→20:16)
[2018-04-07] MEDS: INSULIN ASPART 100 UNIT/ML 1 ML 10 ML VIAL SQ SCH (08:29)
[2018-04-07] MEDS: FUROSEMIDE 40 MG TAB PO SCH ×2 (09:41→16:28)
[2018-04-07] MEDS: SPIRONOLACTONE 25 MG TAB PO SCH (09:41)
[2018-04-07] MEDS: VANCOMYCIN 2,500 MG in SODIUM CHLORIDE 0.9% 500 ML IVPB SCH (09:41)
[2018-04-07] MEDS: DILTIAZEM ORAL 30 MG TAB PO SCH ×3 (09:41→20:16)
[2018-04-07] MEDS: COLCHICINE 0.6 MG EACH PO SCH (09:41)
[2018-04-07] MEDS: METOPROLOL TARTRATE 50 MG TAB PO SCH ×2 (09:41→20:15)
--- NOTE | 2018-04-07 12:34 | P.PN ---
Subjective Progress Note Date: 04/07/18 This is a 72-year-old male patient of Dr. Grissom and Dr. Dominguez with known medical history of hypertension, hyperlipidemia and benign prostatic hypertrophy, chronic back pain, gout, osteoarthritis and borderline diabetes, chronic atrial fibrillation, pulmonary hypertension, obstructive sleep apnea unable to tolerate CPAP. He has had admissions at the beginning of this year for pneumonia and acute diastolic heart failure. His last echocardiogram revealed EF of 55-60%, LVH, severely dilated left atrium, right ventricular systolic pressure 48 consistent with moderate pulmonary hypertension. Patient gives history that on night he felt there was a tender area that he thought was a bug bite like a mosquito and it was very itchy. By the next day was quite tender. He applied bacitracin and covered. Yesterday he had an appointment to get his Coumadin checked and well in the office he saw Dr. Jenkins who told him to come into the hospital to have this area checked and start antibiotics. He denies having any fever or chills. He states it is very swollen and warm to the touch. The area has been draining. Patient presented to [facility] emergency center for evaluation area and patient was afebrile. EKG was A. fib at a rate of 92, white count 14.6, BUN 21 creatinine 1.17. Lactic acid 1.2, INR 2.4. CT of the pelvis with contrast revealed a right subcutaneous gluteal inflammatory process with phlegmon and surrounding inflammatory change. No drainable abscesses appreciated. Patient has been seen by Dr. Houser and started on Zosyn and vancomycin. Wound culture was obtained this morning. Consult has been added in for Dr. Vaz. 04/07: Patient has been seen by Dr. Vaz with no plan for surgical intervention at this point. Patient is continued on IV vancomycin and Zosyn. Patient states he feels the wound area is smaller and is continuing to drain. Wound culture is presumptive staph aureus. Patient will be placed in isolation. Patient denies any chest pain, shortness of breath or increased lower extremity edema. Patient is refusing CBGs which will be discontinued. A1c is 5.6. Objective - Vital Signs Vital signs: Vital Signs Temp 98.1 F 04/07/18 06:00 Pulse 90 04/07/18 06:00 Resp 20 04/07/18 06:00 BP 129/84 04/07/18 06:00 Pulse Ox 97 04/07/18 06:00 Intake & Output 04/06/18 04/07/18 04/07/18 18:59 06:59 18:59 Intake Total 480 600 360 Balance 480 600 360 Weight 158.757 kg Intake: Oral 480 600 360 Other: # Voids 2 2 - Exam General appearance: cooperative, morbidly obese - EENT Eyes: EOMI, PERRLA, dentition normal, normal appearance ENT: NA/AT, normal oropharynx - Neck Neck: normal ROM - Respiratory Respiratory: bilateral: CTA, negative: diminished, dullness - Cardiovascular Rhythm: irregularly irregular Heart sounds: normal: S1, S2, systolic ejection murmur - Gastrointestinal General gastrointestinal: normal bowel sounds, soft - Integumentary Integumentary: decreased turgor, normal, on the right buttocks medial side, large firm area with erythema and edema. Serosanguineous drainage. - Neurologic Neurologic: CNII-XII intact - Musculoskeletal Musculoskeletal: generalized weakness, strength equal bilaterally - Psychiatric Psychiatric: A&O x's 3, appropriate affect, intact judgment & insight - Labs CBC & Chem 7: 04/06/18 07:46 04/06/18 07:46 Labs: Abnormal Lab Results - Last 24 Hours (Table) 04/06/18 04/06/18 Range/Units 07:46 16:54 WBC 11.5 H (3.8-10.6) k/uL RBC 4.29 L (4.30-5.90) m/uL Hgb 12.3 L (13.0-17.5) gm/dL Hct 37.8 L (39.0-53.0) % Plt Count 95 L (150-450) k/uL Neutrophils # 9.2 H (1.3-7.7) k/uL Lymphocytes # 0.8 L (1.0-4.8) k/uL Monocytes # 1.1 H (0-1.0) k/uL POC Glucose (mg/dL) 104 H (75-99) mg/dL Microbiology - Last 24 Hours (Table) 04/06/18 11:00 Gram Stain - Preliminary Buttock Wound Culture - Preliminary 04/05/18 14:17 Urine Culture - Final Urine,Voided 04/05/18 14:57 Blood Culture - Preliminary Blood No Growth after 24 hours Assessment and Plan Plan: 1. Abscess right buttock. CAT scan as above. Dr. Houser has evaluated. Patient is currently on Zosyn and vancomycin. Wound culture is stating presumptive staph aureus. Blood culture no growth after 24 hours. Consult placed with Dr. Vaz. 2. Chronic atrial fibrillation. Continue Cardizem 30 mg 3 times daily, Lopressor 100 mg twice daily and Coumadin at home dosing. Continue to monitor INR. 3. Secondary moderate pulmonary hypertension with systolic pressure of 48 secondary to obstructive sleep apnea, unable to tolerate CPAP and follow-up with Dr Desir for pulmonary hypertension clinic. 4. Hypertension. Continue the Cipro 20 mg daily, Lopressor 100 mg twice daily , Aldactone 25 mg daily. 5. Chronic heart failure. Continue Lasix 40 mg PO every 12 hours and Aldactone 25 mg daily. 6. Benign prostatic hypertrophy. Continue Cardura. 7. Hyperlipidemia. Continue Pravachol. 8. Gout unspecified. Continue colchicine and allopurinol. 9. Chronic low back pain and generalized osteoarthritis, stable. 10. Diabetes has been ruled out. Globin A1c 5.6. 11. DVT prophylaxis. Patient is on Coumadin. 12. Gastrointestinal prophylaxis. Protonix Discharge plan: return home. Impression and plan of care have been directed as dictated by the signing physician. Linda Maloney nurse practitioner acting as scribe for signing physician.
--- NOTE | 2018-04-07 16:31 | P.PN ---
Subjective Progress Note Date: 04/07/18 Principal diagnosis: Cellulitis of the buttock Patient was then admitted with cellulitis and drainage from the buttock. Presumptive cultures are showing staph. He had one low-grade temperature of 100.7. Less pain. Objective - Vital Signs Vital signs: Vital Signs Temp 98.0 F 04/07/18 15:00 Pulse 84 04/07/18 15:00 Resp 20 04/07/18 15:00 BP 122/81 04/07/18 15:00 Pulse Ox 98 04/07/18 15:00 Intake & Output 04/06/18 04/07/18 04/07/18 18:59 06:59 18:59 Intake Total 076 419 0820 Balance 462 284 5405 Weight 158.757 kg Intake: Intake, IV Titration 1300 Amount Sodium Chloride 0.9% 1, 800 000 ml @ 125 mls/hr IV . Q8H ROGER Rx#:[id number] Vancomycin 2,500 mg In 500 Sodium Chloride 0.9% 500 ml @ 167 mls/hr IVPB Q24HR ROGER Rx#:[id number] Oral 480 600 600 Other: # Voids 2 2 - Constitutional General appearance: Present: cooperative, no acute distress - Integumentary Integumentary Comment(s): 3 x 4 cm area of skin breakdown with serous drainage. There is surrounding ecchymosis. There is about a 10 x 12 cm area of firmness which may be early developing abscess - Labs CBC & Chem 7: 04/06/18 07:46 04/06/18 07:46 Labs: Abnormal Lab Results - Last 24 Hours (Table) 04/06/18 Range/Units 16:54 POC Glucose (mg/dL) 104 H (75-99) mg/dL Microbiology - Last 24 Hours (Table) 04/06/18 11:00 Gram Stain - Preliminary Buttock Wound Culture - Preliminary Presumptive Staph aureus 04/05/18 14:17 Urine Culture - Final Urine,Voided 04/05/18 14:57 Blood Culture - Preliminary Blood No Growth after 24 hours Assessment and Plan (1) Cellulitis, gluteal, right Current Visit: Yes Status: Acute Code(s): L03.317 - CELLULITIS OF BUTTOCK SNOMED Code(s): 65579054 (2) Atrial fibrillation Current Visit: No Status: Acute Code(s): I48.91 - UNSPECIFIED ATRIAL FIBRILLATION SNOMED Code(s): 44196694 (3) Congestive heart failure Current Visit: No Status: Acute Code(s): I50.9 - HEART FAILURE, UNSPECIFIED SNOMED Code(s): 19571415 (4) Chronic venous stasis dermatitis of both lower extremities Current Visit: Yes Status: Acute Code(s): I87.2 - VENOUS INSUFFICIENCY ( CHRONIC) (PERIPHERAL) SNOMED Code(s): 83717274 Plan: The skin breakdown is not worsened. He has a more localized area of induration that may be a developing abscess. We'll take him for a wound exploration and debridement tomorrow. The procedures and complications were discussed. Questions were encouraged and answered.
[2018-04-07] MEDS: WARFARIN 7.5 MG TAB PO SCH (18:34)
[2018-04-07] MEDS: PRAVASTATIN SODIUM 20 MG TAB PO SCH (20:15)
[2018-04-07] MEDS: DOXAZOSIN 4 MG TAB PO SCH (20:16)
[2018-04-07] MEDS: ALLOPURINOL 100 MG TAB PO SCH (20:16)
[2018-04-07] MEDS: POTASSIUM CHLORIDE ER 10 MEQ TAB.ER.PRT PO SCH (20:16)
--- NOTE | 2018-04-07 23:14 | PN ---
PROGRESS NOTE DATE OF SERVICE: 04/07/2018 REASON FOR FOLLOWUP: Right gluteal abscess and cellulitis. INTERVAL HISTORY: The patient is currently afebrile. He is breathing comfortably. Patient denies significant chest pain, shortness of breath or cough. No abdominal pain. Pain to the right gluteal area is slightly decreased, did have minimal drainage. Surgery has seen the patient and recommending no surgical drainage at this point. EXAMINATION: Blood pressure 122/81 with a pulse of 84, temperature of 98. He is 98% on room air. General description is an elderly male lying in bed in no distress. RESPIRATORY SYSTEM: Unlabored breathing. Clear to auscultation anteriorly. HEART: S1, S2. Regular rate and rhythm: ABDOMEN: Soft. No tenderness. LABS: Hemoglobin is 12.8, white count 11.5 with a BUN of 17, creatinine 1.04. The right buttock culture is currently showing presumptive Staph aureus. DIAGNOSTIC IMPRESSION AND PLAN: Patient with a right gluteal abscess and cellulitis, culture currently with Staphylococcus aureus with waiting for the final identification and sensitivity of this pathogen. Will keep the patient on vancomycin and Zosyn, adjusting it further based on the culture report. Continue supportive care. MMODL / IJN: [id number] /
[2018-04-08] MEDS: PIPERACILLIN-TAZOBACTAM 3.375 GM in DEXTROSE/WATER 1 50ML.BAG IVPB SCH ×3 (04:42→20:44)
[2018-04-08] MEDS ORDERED: VANCOMYCIN TROUGH DUE 1 EACH MISC MISCELLANE ONE (08:00)
[2018-04-08] MEDS: VANCOMYCIN 2,500 MG in SODIUM CHLORIDE 0.9% 500 ML IVPB SCH (08:24)
[2018-04-08 08:32] LABS: INR 2.4 (<1.2); Prothrombin Time 21.2 sec (9.0-12.0)
[2018-04-08 08:39] LABS: Calcium 9.3 mg/dL (8.4-10.2); Potassium 4.2 mmol/L (3.5-5.1)
[2018-04-08 08:40] LABS: HGB 13.5 gm/dL (13.0-17.5); MCH 28.3 pg (25.0-35.0); MCHC 32.1 g/dL (31.0-37.0); MCV 88.1 fL (80.0-100.0); Mean Platelet Volume 6.5; Platelet Count 142 k/uL (150-450); RBC 4.77 m/uL (4.30-5.90); RDW 13.2 % (11.5-15.5); WBC 6.9 k/uL (3.8-10.6)
[2018-04-08] MEDS: METOPROLOL TARTRATE 50 MG TAB PO SCH ×2 (08:42→20:43)
[2018-04-08] MEDS ORDERED: IV FLUID CONTINUATION 150 ML IV ONE (09:33)
[2018-04-08] MEDS ORDERED: IV FLUID CONTINUATION 100 ML IV ONE (09:33)
[2018-04-08] MEDS ORDERED: BUPIVACAIN-EPI 0.25%-1:200,000 30 ML VIAL SQ ONE (09:41)
[2018-04-08] MEDS ORDERED: LIDOCAINE 1% INJ 10MG/ML (20 ML MDV) ONE (09:42)
[2018-04-08] MEDS ORDERED: PHENYLEPHRINE-0.9% NACL SYG 1 MG/10 ML SYRINGE ONE (09:42)
[2018-04-08] MEDS ORDERED: NEOSTIGMINE 1 MG/ML 10 ML VIAL ONE (09:42)
[2018-04-08] MEDS ORDERED: GLYCOPYRROLATE 0.2 MG/ML 2 ML VIAL ONE (09:42)
[2018-04-08] MEDS ORDERED: fentaNYL (PF) 50 MCG/ML 2 ML AMP ONE (09:42)
[2018-04-08] MEDS ORDERED: PROPOFOL 10 MG/ML 20 ML VIAL IV ONE (09:42)
[2018-04-08] MEDS ORDERED: ROCURONIUM BROMIDE 10 MG/ML 10 ML VIAL IV ONE (09:42)
[2018-04-08] MEDS ORDERED: MIDAZOLAM 2 MG/2 ML VIAL ONE (09:42)
[2018-04-08] MEDS ORDERED: LACTATED RINGERS 1,000 ML IV ONE (10:08)
--- NOTE | 2018-04-08 10:53 | P.PCN ---
Date of Procedure: 04/08/18 Preoperative Diagnosis: Cellulitis and skin necrosis right buttock Postoperative Diagnosis: Cellulitis, skin necrosis, abscess right buttock Procedure(s) Performed: Excisional debridement and drainage of abscess, placement of wound VAC Anesthesia: JANES Surgeon: Melissa Vaz Estimated Blood Loss (ml): 50 Pathology: other Condition: stable (Culture and necrotic skin) Disposition: PACU Indications for Procedure: Patient presented with cellulitis of the buttock. The area had demarcated with a area of skin necrosis and there is an area of induration which is suspicious for a developing abscess Operative Findings: Patient's taken the operative suite where he is prepped and draped in the usual sterile manner under a general endotracheal anesthetic. The skin is infiltrated with local anesthetic. An incision is made around the necrotic skin and sharply excised. There is noted be an abscess cavity about 2-3 cm in size was purulent material which was cultured. The necrotic fat was then curetted back to healthy bleeding tissue. Small bleeding points are controlled with electrocautery. The wound was irrigated. A wound VAC was then placed. He tolerated the procedure without difficulty was taken recovery room in satisfactory condition. According to or personnel, all counts are correct.
[2018-04-08] MEDS ORDERED: HYDROcodone/APAP 5-325MG 1 EACH TAB PO PRN (10:56)
[2018-04-08] MEDS ORDERED: HYDROmorphone 1 MG/ML 1 ML SYRINGE IVP PRN (10:56)
--- NOTE | 2018-04-08 12:36 | P.PN ---
Subjective Progress Note Date: 04/08/18 This is a 72-year-old male patient of Dr. Grissom and Dr. Dominguez with known medical history of hypertension, hyperlipidemia and benign prostatic hypertrophy, chronic back pain, gout, osteoarthritis and borderline diabetes, chronic atrial fibrillation, pulmonary hypertension, obstructive sleep apnea unable to tolerate CPAP. He has had admissions at the beginning of this year for pneumonia and acute diastolic heart failure. His last echocardiogram revealed EF of 55-60%, LVH, severely dilated left atrium, right ventricular systolic pressure 48 consistent with moderate pulmonary hypertension. Patient gives history that on night he felt there was a tender area that he thought was a bug bite like a mosquito and it was very itchy. By the next day was quite tender. He applied bacitracin and covered. Yesterday he had an appointment to get his Coumadin checked and well in the office he saw Dr. Jenkins who told him to come into the hospital to have this area checked and start antibiotics. He denies having any fever or chills. He states it is very swollen and warm to the touch. The area has been draining. Patient presented to [facility] emergency center for evaluation area and patient was afebrile. EKG was A. fib at a rate of 92, white count 14.6, BUN 21 creatinine 1.17. Lactic acid 1.2, INR 2.4. CT of the pelvis with contrast revealed a right subcutaneous gluteal inflammatory process with phlegmon and surrounding inflammatory change. No drainable abscesses appreciated. Patient has been seen by Dr. Houser and started on Zosyn and vancomycin. Wound culture was obtained this morning. Consult has been added in for Dr. Vaz. 04/07: Patient has been seen by Dr. Vaz with no plan for surgical intervention at this point. Patient is continued on IV vancomycin and Zosyn. Patient states he feels the wound area is smaller and is continuing to drain. Wound culture is presumptive staph aureus. Patient will be placed in isolation. Patient denies any chest pain, shortness of breath or increased lower extremity edema. Patient is refusing CBGs which will be discontinued. A1c is 5.6. 04/08: Patient is gone for surgical debridement with Dr. Vaz. White count is normal at 6.9, hemoglobin is 13.5, INR is 2.4. Patient has been continued on Coumadin during this hospitalization. Objective - Vital Signs Vital signs: Vital Signs Temp 98.2 F 04/08/18 09:28 Pulse 72 04/08/18 09:28 Resp 18 04/08/18 09:28 BP 118/71 04/08/18 09:28 Pulse Ox 97 04/08/18 09:28 Intake & Output 04/07/18 04/08/18 04/08/18 18:59 06:59 18:59 Intake Total 1900 1250 Output Total 600 40 Balance 1900 -600 1210 Weight 158.757 kg Intake: IV 1250 Intake, IV Titration 1300 Amount Sodium Chloride 0.9% 1, 800 000 ml @ 125 mls/hr IV . Q8H ROGER Rx#:[id number] Vancomycin 2,500 mg In 500 Sodium Chloride 0.9% 500 ml @ 167 mls/hr IVPB Q24HR ROGER Rx#:[id number] Oral 600 Output: Urine 600 Estimated Blood Loss 40 Other: # Voids 2 - Exam General appearance: cooperative, morbidly obese - EENT Eyes: EOMI, PERRLA, dentition normal, normal appearance ENT: NA/AT, normal oropharynx - Neck Neck: normal ROM - Respiratory Respiratory: bilateral: CTA, negative: diminished, dullness - Cardiovascular Rhythm: irregularly irregular Heart sounds: normal: S1, S2, systolic ejection murmur - Gastrointestinal General gastrointestinal: normal bowel sounds, soft - Integumentary Integumentary: decreased turgor, normal, on the right buttocks medial side, large firm area with erythema and edema. Serosanguineous drainage. - Neurologic Neurologic: CNII-XII intact - Musculoskeletal Musculoskeletal: generalized weakness, strength equal bilaterally - Psychiatric Psychiatric: A&O x's 3, appropriate affect, intact judgment & insight - Labs CBC & Chem 7: 04/08/18 07:48 04/08/18 07:48 Labs: Abnormal Lab Results - Last 24 Hours (Table) 04/08/18 04/08/18 04/08/18 Range/Units 07:48 07:48 07:48 Plt Count 142 L (150-450) k/uL PT 21.2 H (9.0-12.0) sec INR 2.4 H (<1.2) Glucose 128 H (74-99) mg/dL Microbiology - Last 24 Hours (Table) 04/05/18 14:57 Blood Culture - Preliminary Blood No Growth after 48 hours 04/06/18 11:00 Gram Stain - Preliminary Buttock Wound Culture - Preliminary Presumptive Staph aureus Assessment and Plan Plan: 1. Abscess right buttock with sepsis. CAT scan as above. Dr. Houser has evaluated. Patient is currently on Zosyn and vancomycin. Wound culture is stating presumptive staph aureus. Blood culture no growth after [address] Vaz is appreciated. Patient is undergoing I&D today. 2. Chronic atrial fibrillation. Continue Cardizem 30 mg 3 times daily, Lopressor 100 mg twice daily and Coumadin at home dosing. Continue to monitor INR. 3. Secondary moderate pulmonary hypertension with systolic pressure of 48 secondary to obstructive sleep apnea, unable to tolerate CPAP and follow-up with Dr Desir for pulmonary hypertension clinic. 4. Hypertension. Continue the Cipro 20 mg daily, Lopressor 100 mg twice daily , Aldactone 25 mg daily. 5. Chronic diastolic heart failure. Continue Lasix 40 mg PO every 12 hours and Aldactone 25 mg daily. 6. Benign prostatic hypertrophy. Continue Cardura. 7. Hyperlipidemia. Continue Pravachol. 8. Gout unspecified. Continue colchicine and allopurinol. 9. Chronic low back pain and generalized osteoarthritis, stable. 10. Diabetes has been ruled out. Globin A1c 5.6. 11. DVT prophylaxis. Patient is on Coumadin. 12. Gastrointestinal prophylaxis. Protonix Discharge plan: return home. Impression and plan of care have been directed as dictated by the signing physician. Linda Maloney nurse practitioner acting as scribe for signing physician.
[2018-04-08] MEDS: SPIRONOLACTONE 25 MG TAB PO SCH (12:45)
[2018-04-08] MEDS: DILTIAZEM ORAL 30 MG TAB PO SCH ×3 (12:45→22:02)
[2018-04-08] MEDS: FUROSEMIDE 40 MG TAB PO SCH ×2 (12:45→15:50)
[2018-04-08] MEDS: COLCHICINE 0.6 MG EACH PO SCH (12:45)
[2018-04-08] MEDS: WARFARIN 7.5 MG TAB PO SCH (18:18)
[2018-04-08] MEDS: PRAVASTATIN SODIUM 20 MG TAB PO SCH (20:43)
[2018-04-08] MEDS: POTASSIUM CHLORIDE ER 10 MEQ TAB.ER.PRT PO SCH (20:43)
[2018-04-08] MEDS: DOXAZOSIN 4 MG TAB PO SCH (20:44)
[2018-04-08] MEDS: ALLOPURINOL 100 MG TAB PO SCH (20:44)
--- NOTE | 2018-04-08 22:51 | PN ---
PROGRESS NOTE DATE OF SERVICE: 04/08/2018 REASON FOR FOLLOWUP: Right gluteal MRSA abscess and cellulitis. INTERVAL HISTORY: The patient is afebrile. The patient was taken to the OR. The patient is status post drainage of an abscess and resection of the necrotic skin on the right gluteal area; subsequently placement of a wound V.A.C. The patient tolerated the procedure. Pain is currently controlled. Denies having any chest pain, shortness of breath or cough. No abdominal pain and no diarrhea. PHYSICAL EXAMINATION: Blood pressure is 111/73 with a pulse of 81, temperature 98. He is 98% on room air. General description is an elderly male up in the bed in no distress. RESPIRATORY SYSTEM: Unlabored breathing. Clear to auscultation anteriorly. HEART: S1, S2. Regular rate and rhythm. ABDOMEN: Soft. No tenderness. Right gluteal wound is currently dressed up. No obvious drainage. No surrounding swelling or redness. LABS: Hemoglobin is 13.5, white count 6.9 with a BUN of 16, creatinine 1.20. Wound culture finalized with MRSA. DIAGNOSTIC IMPRESSION AND PLAN: Patient with right gluteal abscess and necrotic skin, status post resection of the necrotic skin and drainage of the abscess with superficial culture positive for methicillin-resistant Staphylococcus aeruginosa, though deep cultures are currently pending. We will keep the patient on vancomycin at this point. Discontinue Zosyn. Discharge antibiotic depending upon the deep culture. I will need to arrange for the outpatient wound V.A.C. Continue with supportive care. MMTIAL / ALICIAN: [id number] /
[2018-04-09 02:23] LABS: Basophils % (A) 0 %; Eosinophils # (A) 0.2 k/uL (0-0.7); Eosinophils % (A) 3 %; HCT 35.4 % (39.0-53.0); HGB 11.5 gm/dL (13.0-17.5); Lymphocytes # (A) 1.2 k/uL (1.0-4.8); Lymphocytes % (A) 16 %; MCH 28.4 pg (25.0-35.0); MCHC 32.4 g/dL (31.0-37.0); MCV 87.7 fL (80.0-100.0); Mean Platelet Volume 6.7; Monocytes # (A) 0.6 k/uL (0-1.0); Monocytes % (A) 8 %; Neutrophils # (A) 5.4 k/uL (1.3-7.7); Neutrophils % (A) 71 %; Platelet Count 145 k/uL (150-450); RBC 4.04 m/uL (4.30-5.90); RDW 13.3 % (11.5-15.5); WBC 7.5 k/uL (3.8-10.6)
[2018-04-09 02:31] LABS: INR 2.5 (<1.2); Prothrombin Time 22.9 sec (9.0-12.0)
[2018-04-09 02:45] LABS: Calcium 8.9 mg/dL (8.4-10.2); Potassium 4.1 mmol/L (3.5-5.1)
[2018-04-09] MEDS: SODIUM CHLORIDE 0.9% IVPB SCH (06:20)
[2018-04-09] MEDS: VANCOMYCIN IVPB SCH (06:20)
[2018-04-09] MEDS: COLCHICINE 0.6 MG EACH PO SCH (08:21)
[2018-04-09] MEDS: FUROSEMIDE 40 MG TAB PO SCH ×2 (08:22→17:58)
[2018-04-09] MEDS: SPIRONOLACTONE 25 MG TAB PO SCH (08:22)
[2018-04-09] MEDS: METOPROLOL TARTRATE 50 MG TAB PO SCH ×2 (08:22→20:36)
[2018-04-09] MEDS: DILTIAZEM ORAL 30 MG TAB PO SCH ×3 (08:22→21:01)
[2018-04-09 11:31] LABS: HGB 11.4 gm/dL (13.0-17.5); MCH 28.3 pg (25.0-35.0); MCHC 32.5 g/dL (31.0-37.0); Mean Platelet Volume 6.6; Platelet Count 148 k/uL (150-450); RBC 4.02 m/uL (4.30-5.90); RDW 13.4 % (11.5-15.5); WBC 6.3 k/uL (3.8-10.6)
[2018-04-09] MEDS ORDERED: PHYTONADIONE 10 MG in SODIUM CHLORIDE 0.9% 50 ML IVPB STA (13:25)
--- NOTE | 2018-04-09 13:49 | P.PN ---
Progress Note - Text Progress Note Date: 04/09/18 The patient is status post debridement. He had problems with the wound VAC last night and was replaced by nursing. He's had bleeding from the wound since. A pressure dressing has just been placed by nursing. There is blood on the under pad and sheets. Assessment: Status post debridement, postoperative bleeding with clots Plan: He's been given some vitamin K. He didn't have any significant bleeding intraoperatively. The bleeding started greater than 9 hours stop readily. Therefore think we need to do a wound exploration with control of bleeding.
[2018-04-09] MEDS: IV FLUID CONTINUATION 400 ML IV ONE ×2 (14:24→15:17)
[2018-04-09] MEDS ORDERED: SODIUM CHLORIDE 0.9% 1,000 ML IV ONE (14:35)
[2018-04-09] MEDS ORDERED: ROCURONIUM BROMIDE 10 MG/ML 10 ML VIAL IV ONE (14:37)
[2018-04-09] MEDS ORDERED: PROPOFOL 10 MG/ML 20 ML VIAL IV ONE (14:37)
[2018-04-09] MEDS ORDERED: LIDOCAINE 1% INJ 10MG/ML (20 ML MDV) ONE (14:37)
--- NOTE | 2018-04-09 14:55 | P.PN ---
Subjective Progress Note Date: 04/09/18 This is a 72-year-old male patient of Dr. Grissom and Dr. Dominguez with known medical history of hypertension, hyperlipidemia and benign prostatic hypertrophy, chronic back pain, gout, osteoarthritis and borderline diabetes, chronic atrial fibrillation, pulmonary hypertension, obstructive sleep apnea unable to tolerate CPAP. He has had admissions at the beginning of this year for pneumonia and acute diastolic heart failure. His last echocardiogram revealed EF of 55-60%, LVH, severely dilated left atrium, right ventricular systolic pressure 48 consistent with moderate pulmonary hypertension. Patient gives history that on night he felt there was a tender area that he thought was a bug bite like a mosquito and it was very itchy. By the next day was quite tender. He applied bacitracin and covered. Yesterday he had an appointment to get his Coumadin checked and well in the office he saw Dr. Jenkins who told him to come into the hospital to have this area checked and start antibiotics. He denies having any fever or chills. He states it is very swollen and warm to the touch. The area has been draining. Patient presented to [facility] emergency center for evaluation area and patient was afebrile. EKG was A. fib at a rate of 92, white count 14.6, BUN 21 creatinine 1.17. Lactic acid 1.2, INR 2.4. CT of the pelvis with contrast revealed a right subcutaneous gluteal inflammatory process with phlegmon and surrounding inflammatory change. No drainable abscesses appreciated. Patient has been seen by Dr. Houser and started on Zosyn and vancomycin. Wound culture was obtained this morning. Consult has been added in for Dr. Vaz. 04/07: Patient has been seen by Dr. Vaz with no plan for surgical intervention at this point. Patient is continued on IV vancomycin and Zosyn. Patient states he feels the wound area is smaller and is continuing to drain. Wound culture is presumptive staph aureus. Patient will be placed in isolation. Patient denies any chest pain, shortness of breath or increased lower extremity edema. Patient is refusing CBGs which will be discontinued. A1c is 5.6. 04/08: Patient is gone for surgical debridement with Dr. Vaz. White count is normal at 6.9, hemoglobin is 13.5, INR is 2.4. Patient has been continued on Coumadin during this hospitalization. 04/09: Yesterday, patient underwent excisional debridement and drainage of an abscess and placement of a wound VAC for cellulitis and skin necrosis and abscess in the right buttocks. Patient tolerated the procedure well. He did not have any immediate postop complications. According to nursing staff, patient had bleeding during the night and the wound VAC had to be removed and a large clot was removed. Patient has had continuous bleeding on the day shift with clots. Vitamin K ordered. Coumadin is on hold. Repeat CBC every [address] Vaz to reassess. Despite the bleeding, the wound appears much improved from yesterday. Objective - Vital Signs Vital signs: Vital Signs Temp 98.8 F 04/09/18 06:56 Pulse 86 04/09/18 06:56 Resp 16 04/09/18 06:56 BP 140/78 04/09/18 06:56 Pulse Ox 97 04/09/18 08:03 Intake & Output 04/08/18 04/09/18 04/09/18 18:59 06:59 18:59 Intake Total 1000 Output Total 40 Balance 960 Intake: IV 1000 Piperacillin-Tazobactam 3 100 .375 gm In Dextrose/Water 1 50ml.bag @ 12.5 mls/hr IVPB Q8H ROGER Rx#: [id number] Vancomycin 2,500 mg In 500 Sodium Chloride 0.9% 500 ml @ 167 mls/hr IVPB Q24HR ROGER Rx#:[id number] Output: Estimated Blood Loss 40 Other: # Voids 1 - Exam General appearance: cooperative, morbidly obese - EENT Eyes: EOMI, PERRLA, dentition normal, normal appearance ENT: NA/AT, normal oropharynx - Neck Neck: normal ROM - Respiratory Respiratory: bilateral: CTA, negative: diminished, dullness - Cardiovascular Rhythm: irregularly irregular Heart sounds: normal: S1, S2, systolic ejection murmur - Gastrointestinal General gastrointestinal: normal bowel sounds, soft - Integumentary Integumentary: decreased turgor, normal, on the right buttocks medial side, wound VAC with significant bleeding. - Neurologic Neurologic: CNII-XII intact - Musculoskeletal Musculoskeletal: generalized weakness, strength equal bilaterally - Psychiatric Psychiatric: A&O x's 3, appropriate affect, intact judgment & insight - Labs CBC & Chem 7: 04/09/18 11:07 04/09/18 02:12 Labs: Abnormal Lab Results - Last 24 Hours (Table) 04/09/18 04/09/18 04/09/18 Range/Units 02:12 02:12 02:12 RBC 4.04 L (4.30-5.90) m/uL Hgb 11.5 L (13.0-17.5) gm/dL Hct 35.4 L (39.0-53.0) % Plt Count 145 L (150-450) k/uL PT 22.9 H (9.0-12.0) sec INR 2.5 H (<1.2) Creatinine 1.32 H (0.66-1.25) mg/dL Glucose 124 H (74-99) mg/dL Microbiology - Last 24 Hours (Table) 04/08/18 10:51 Gram Stain - Preliminary Buttock Wound Culture - Preliminary Presumptive Staph aureus 04/06/18 11:00 Gram Stain - Final Buttock Wound Culture - Final Methicillin resist S. aureus 04/08/18 10:51 Anaerobic Culture - Preliminary Buttock 04/05/18 14:57 Blood Culture - Preliminary Blood No Growth after 72 hours Assessment and Plan Plan: 1. Abscess right buttock with sepsis. CAT scan as above. Dr. Houser has evaluated. Patient is currently on Zosyn and vancomycin. Wound culture is stating presumptive staph aureus. Blood culture no growth after [address] Vaz is appreciated. Patient is undergoing I&D today. 2. Acute bleeding on the surgical site with possible acute blood loss anemia. Hemoglobin will be checked every 8 hours. Coumadin placed on hold, status post vitamin K. 3. Chronic atrial fibrillation. Continue Cardizem 30 mg 3 times daily, Lopressor 100 mg twice daily and Coumadin at home dosing. Continue to monitor INR. 4. Secondary moderate pulmonary hypertension with systolic pressure of 48 secondary to obstructive sleep apnea, unable to tolerate CPAP and follow-up with Dr Desir for pulmonary hypertension clinic. 5. Hypertension. Continue the Cipro 20 mg daily, Lopressor 100 mg twice daily , Aldactone 25 mg daily. 6. Chronic diastolic heart failure. Continue Lasix 40 mg PO every 12 hours and Aldactone 25 mg daily. 7. Benign prostatic hypertrophy. Continue Cardura. 8. Hyperlipidemia. Continue Pravachol. 9. Gout unspecified. Continue colchicine and allopurinol. 10. Chronic low back pain and generalized osteoarthritis, stable. 11. Diabetes has been ruled out. Globin A1c 5.6. 12. DVT prophylaxis. Patient is on Coumadin. 13. Gastrointestinal prophylaxis. Protonix Discharge plan: return home. Impression and plan of care have been directed as dictated by the signing physician. Linda Maloney nurse practitioner acting as scribe for signing physician.
--- NOTE | 2018-04-09 15:14 | P.OP ---
Date of Procedure: 04/09/18 Preoperative Diagnosis: Wound bleeding Postoperative Diagnosis: wound bleeding Procedure(s) Performed: Control of bleeding with placement Ba Anesthesia: JANES Surgeon: Melissa Vaz Estimated Blood Loss (ml): 5 Pathology: none sent Condition: stable Disposition: PACU Indications for Procedure: The patient had a debridement yet and drainage of abscess yesterday. He had persistent bleeding today Description of Procedure: The patient's taken the operative suite where he is prepped and draped in the usual sterile manner under general endotracheal anesthetic. The old dressing is removed and has some bloody drainage. At the superior aspect there is a small arterial bleeder near the skin edge. This is controlled with a figure-of- eight suture of 3-0 Vicryl. The wound bed appears clean. There was a little oozing from removing the black granular foam. The was controlled with electrocautery. The white foam was then placed into the wound bed. Wound VAC dressings were applied. The wound VAC was placed to suction showed no leak. He tolerated the procedure without difficulty and is taken recovery room in satisfactory condition. According to or personnel, ARE correct.
[2018-04-09] MEDS ORDERED: HYDROmorphone 1 MG/ML 1 ML SYRINGE IVP ONE (15:42)
--- NOTE | 2018-04-09 16:01 | PN ---
PROGRESS NOTE DATE OF SERVICE: 04/09/2018 REASON FOR FOLLOWUP: Right gluteal MRSA abscess and cellulitis. INTERVAL HISTORY: The patient is afebrile. The patient seems to have problems with bleeding from his surgical site. Wound V.A.C. has been discontinued. Pressure dressing was applied. He is still having a problem with bleeding, though. Denies significant pain in that area. Denies having any chest pain or shortness of breath or cough. No abdominal pain and no diarrhea. PHYSICAL EXAMINATION: Blood pressure 122/79 with a pulse of 99, temperature 97.8. He is 97% on room air. General description is an elderly male lying in bed in no distress. RESPIRATORY SYSTEM: Unlabored breathing. Clear to auscultation anteriorly. HEART: S1, S2. Regular rate and rhythm. ABDOMEN: Soft. gluteal area with induration but no significant surrounding redness or any foul- smelling drainage; mostly bleeding. LABS: Hemoglobin is 11.4 with a white count of 6.3, BUN of 16, 1.32. Vancomycin trough has been on the low side. DIAGNOSTIC IMPRESSION AND PLAN: Patient with right gluteal methicillin-resistant Staphylococcus aeruginosa abscess, status post drainage, currently covered with vancomycin. That will be continued; dose to be adjusted to keep the trough 15. His kidney function needs to be monitored closed. Pressure packing at the site. He may benefit from FFP infusion to control the bleeding. was going to contact the surgeon. Continue with supportive care. MMODL / IJN: [id number] /
[2018-04-09 18:11] LABS: HCT 32.8 % (39.0-53.0); HGB 10.5 gm/dL (13.0-17.5); MCH 28.4 pg (25.0-35.0); MCHC 31.9 g/dL (31.0-37.0); MCV 88.8 fL (80.0-100.0); Mean Platelet Volume 6.4; Platelet Count 148 k/uL (150-450); RDW 13.1 % (11.5-15.5); WBC 7.1 k/uL (3.8-10.6)
[2018-04-09] MEDS: ALLOPURINOL 100 MG TAB PO SCH (20:36)
[2018-04-09] MEDS: PRAVASTATIN SODIUM 20 MG TAB PO SCH (20:36)
[2018-04-09] MEDS: POTASSIUM CHLORIDE ER 10 MEQ TAB.ER.PRT PO SCH (20:36)
[2018-04-09] MEDS: DOXAZOSIN 4 MG TAB PO SCH (20:36)
[2018-04-10] MEDS ORDERED: VANCOMYCIN TROUGH DUE 1 EACH MISC MISCELLANE ONE (05:00)
[2018-04-10 05:14] LABS: HCT 30.1 % (39.0-53.0); HGB 9.9 gm/dL (13.0-17.5); MCH 28.9 pg (25.0-35.0); MCHC 32.8 g/dL (31.0-37.0); MCV 88.1 fL (80.0-100.0); Mean Platelet Volume 6.5; Platelet Count 127 k/uL (150-450); RBC 3.42 m/uL (4.30-5.90); RDW 13.2 % (11.5-15.5); WBC 5.5 k/uL (3.8-10.6)
[2018-04-10 05:30] LABS: Calcium 8.7 mg/dL (8.4-10.2); Potassium 3.7 mmol/L (3.5-5.1)
[2018-04-10] MEDS: VANCOMYCIN IVPB SCH (05:48)
[2018-04-10] MEDS: SODIUM CHLORIDE 0.9% IVPB SCH (05:48)
[2018-04-10] MEDS: FUROSEMIDE 40 MG TAB PO SCH ×2 (09:30→17:56)
[2018-04-10] MEDS: COLCHICINE 0.6 MG EACH PO SCH (09:30)
[2018-04-10] MEDS: DILTIAZEM ORAL 30 MG TAB PO SCH ×3 (09:30→20:44)
[2018-04-10] MEDS: METOPROLOL TARTRATE 50 MG TAB PO SCH ×2 (09:30→20:44)
[2018-04-10] MEDS: SPIRONOLACTONE 25 MG TAB PO SCH (09:31)
--- NOTE | 2018-04-10 17:52 | P.PN ---
Subjective Progress Note Date: 04/10/18 This is a 72-year-old male patient of Dr. Grissom and Dr. Dominguez with known medical history of hypertension, hyperlipidemia and benign prostatic hypertrophy, chronic back pain, gout, osteoarthritis and borderline diabetes, chronic atrial fibrillation, pulmonary hypertension, obstructive sleep apnea unable to tolerate CPAP. He has had admissions at the beginning of this year for pneumonia and acute diastolic heart failure. His last echocardiogram revealed EF of 55-60%, LVH, severely dilated left atrium, right ventricular systolic pressure 48 consistent with moderate pulmonary hypertension. Patient gives history that on night he felt there was a tender area that he thought was a bug bite like a mosquito and it was very itchy. By the next day was quite tender. He applied bacitracin and covered. Yesterday he had an appointment to get his Coumadin checked and well in the office he saw Dr. Jenkins who told him to come into the hospital to have this area checked and start antibiotics. He denies having any fever or chills. He states it is very swollen and warm to the touch. The area has been draining. Patient presented to [facility] emergency center for evaluation area and patient was afebrile. EKG was A. fib at a rate of 92, white count 14.6, BUN 21 creatinine 1.17. Lactic acid 1.2, INR 2.4. CT of the pelvis with contrast revealed a right subcutaneous gluteal inflammatory process with phlegmon and surrounding inflammatory change. No drainable abscesses appreciated. Patient has been seen by Dr. Houser and started on Zosyn and vancomycin. Wound culture was obtained this morning. Consult has been added in for Dr. Vaz. 04/07: Patient has been seen by Dr. Vaz with no plan for surgical intervention at this point. Patient is continued on IV vancomycin and Zosyn. Patient states he feels the wound area is smaller and is continuing to drain. Wound culture is presumptive staph aureus. Patient will be placed in isolation. Patient denies any chest pain, shortness of breath or increased lower extremity edema. Patient is refusing CBGs which will be discontinued. A1c is 5.6. 04/08: Patient is gone for surgical debridement with Dr. Vaz. White count is normal at 6.9, hemoglobin is 13.5, INR is 2.4. Patient has been continued on Coumadin during this hospitalization. 04/09: Yesterday, patient underwent excisional debridement and drainage of an abscess and placement of a wound VAC for cellulitis and skin necrosis and abscess in the right buttocks. Patient tolerated the procedure well. He did not have any immediate postop complications. According to nursing staff, patient had bleeding during the night and the wound VAC had to be removed and a large clot was removed. Patient has had continuous bleeding on the day shift with clots. Vitamin K ordered. Coumadin is on hold. Repeat CBC every [address] Vaz to reassess. Despite the bleeding, the wound appears much improved from yesterday. 04/10: doing well no diarrhea no fever chills, wound vac operational, pain controlled. cultures intraoperative pending. discussed with Dr Houser. preliminary MRSA Objective - Vital Signs Vital signs: Vital Signs Temp 97.7 F 04/10/18 06:00 Pulse 100 04/10/18 06:00 Resp 20 04/10/18 06:00 BP 116/81 04/10/18 08:12 Pulse Ox 97 04/10/18 06:00 Intake & Output 04/09/18 04/10/18 04/10/18 18:59 06:59 18:59 Intake Total 1060 400 Output Total 5 Balance 1055 400 Intake: IV 860 Oral 200 400 Output: Estimated Blood Loss 5 Other: # Voids 1 2 - Constitutional General appearance: Present: cooperative, obese - EENT Eyes: Present: anicteric sclerae, EOMI, PERRLA, dentition normal ENT: Present: NA/AT, normal oropharynx - Respiratory Respiratory: bilateral: CTA, negative: diminished, dullness, rales, rhonchi - Cardiovascular Rhythm: regular Heart sounds: normal: S1, S2 Abnormal Heart Sounds: Present: systolic murmur. Absent: diastolic murmur, rub , S3 Gallop, S4 Gallop, click, other - Integumentary Integumentary: Present: normal, normal turgor - Neurologic Neurologic: Present: CNII-XII intact, focal deficits - Musculoskeletal Musculoskeletal: Present: gait normal, strength equal bilaterally - Psychiatric Psychiatric: Present: A&O x's 3, appropriate affect, intact judgment & insight - Additional findings Additional findings: skin right buttock no cellulitis surroinging wound vac foam - Labs CBC & Chem 7: 04/10/18 04:33 04/10/18 04:33 Labs: Abnormal Lab Results - Last 24 Hours (Table) 04/09/18 04/09/18 04/10/18 Range/Units 11:07 17:47 04:33 RBC 4.02 L 3.70 L (4.30-5.90) m/uL Hgb 11.4 L 10.5 L (13.0-17.5) gm/dL Hct 35.0 L 32.8 L (39.0-53.0) % Plt Count 148 L 148 L (150-450) k/uL Glucose 115 H (74-99) mg/dL 04/10/18 Range/Units 04:33 RBC 3.42 L (4.30-5.90) m/uL Hgb 9.9 L (13.0-17.5) gm/dL Hct 30.1 L (39.0-53.0) % Plt Count 127 L (150-450) k/uL Glucose (74-99) mg/dL Microbiology - Last 24 Hours (Table) 04/05/18 14:57 Blood Culture - Preliminary Blood No Growth after 96 hours 04/08/18 10:51 Gram Stain - Preliminary Buttock Wound Culture - Preliminary Presumptive Staph aureus 04/06/18 11:00 Gram Stain - Final Buttock Wound Culture - Final Methicillin resist S. aureus Assessment and Plan Plan: 1. Abscess right buttock with sepsis. CAT scan as above. s/p I and D 04/09/18, wound vac Dr. Houser has evaluated. Patient is currently on Zosyn and vancomycin. Wound culture is stating presumptive staph aureus. Blood culture no growth after [address] Vaz is appreciated 2. Acute bleeding on the surgical site with possible acute blood loss anemia. Hemoglobin will be checked every 8 hours. Coumadin placed on hold, status post vitamin K. 3. Chronic atrial fibrillation. Continue Cardizem 30 mg 3 times daily, Lopressor 100 mg twice daily and Coumadin at home dosing. Continue to monitor INR. 4. Secondary moderate pulmonary hypertension with systolic pressure of 48 secondary to obstructive sleep apnea, unable to tolerate CPAP and follow-up with Dr Desir for pulmonary hypertension clinic. 5. Hypertension. Continue the Cipro 20 mg daily, Lopressor 100 mg twice daily , Aldactone 25 mg daily. 6. Chronic diastolic heart failure. Continue Lasix 40 mg PO every 12 hours and Aldactone 25 mg daily. 7. Benign prostatic hypertrophy. Continue Cardura. 8. Hyperlipidemia. Continue Pravachol. 9. Gout unspecified. Continue colchicine and allopurinol. 10. Chronic low back pain and generalized osteoarthritis, stable. 11. Diabetes has been ruled out. Globin A1c 5.6. 12. DVT prophylaxis. Patient is on Coumadin. 13. Gastrointestinal prophylaxis. Protonix
[2018-04-10] MEDS: PRAVASTATIN SODIUM 20 MG TAB PO SCH (20:44)
[2018-04-10] MEDS: DOXAZOSIN 4 MG TAB PO SCH (20:44)
[2018-04-10] MEDS: POTASSIUM CHLORIDE ER 10 MEQ TAB.ER.PRT PO SCH (20:44)
[2018-04-10] MEDS: ALLOPURINOL 100 MG TAB PO SCH (20:44)
[2018-04-10] MEDS: VANCOMYCIN 2,000 MG in SODIUM CHLORIDE 0.9% 500 ML IVPB SCH (23:37)
[2018-04-11] MEDS: DILTIAZEM ORAL 30 MG TAB PO SCH ×3 (07:54→21:01)
[2018-04-11] MEDS: COLCHICINE 0.6 MG EACH PO SCH (07:54)
[2018-04-11] MEDS: FUROSEMIDE 40 MG TAB PO SCH ×2 (07:54→15:47)
[2018-04-11] MEDS: SPIRONOLACTONE 25 MG TAB PO SCH (07:54)
[2018-04-11] MEDS: METOPROLOL TARTRATE 50 MG TAB PO SCH ×2 (07:54→20:59)
[2018-04-11 08:16] LABS: Basophils % (A) 0 %; Eosinophils # (A) 0.1 k/uL (0-0.7); Eosinophils % (A) 2 %; HCT 28.9 % (39.0-53.0); HGB 9.3 gm/dL (13.0-17.5); Lymphocytes # (A) 0.9 k/uL (1.0-4.8); Lymphocytes % (A) 16 %; MCH 27.9 pg (25.0-35.0); MCV 87.2 fL (80.0-100.0); Mean Platelet Volume 6.6; Monocytes # (A) 0.5 k/uL (0-1.0); Monocytes % (A) 8 %; Neutrophils # (A) 4.1 k/uL (1.3-7.7); Neutrophils % (A) 72 %; Platelet Count 120 k/uL (150-450); RBC 3.31 m/uL (4.30-5.90); RDW 13.4 % (11.5-15.5); WBC 5.7 k/uL (3.8-10.6)
[2018-04-11 08:21] LABS: INR 1.1 (<1.2)
[2018-04-11 09:00] LABS: Calcium 9.1 mg/dL (8.4-10.2); Potassium 3.9 mmol/L (3.5-5.1)
--- NOTE | 2018-04-11 09:55 | P.PN ---
Subjective Progress Note Date: 04/10/18 doing well no bleeding overnight, vac in place Objective - Vital Signs Vital signs: Vital Signs Temp 97.5 F L 04/11/18 06:30 Pulse 78 04/11/18 06:30 Resp 20 04/11/18 06:30 BP 104/69 04/11/18 06:30 Pulse Ox 98 04/11/18 06:30 Intake & Output 04/10/18 04/11/18 04/11/18 18:59 06:59 18:59 Intake Total 800 Output Total 825 Balance -825 800 Intake: Oral 800 Output: Urine 825 Other: # Voids 2 1 - Constitutional General appearance: Present: cooperative - Respiratory Details: nonlabored - Gastrointestinal Gastrointestinal Comment(s): s/nt/nd - Integumentary Integumentary Comment(s): woundvac in place - Labs CBC & Chem 7: 04/11/18 07:55 04/11/18 07:55 Labs: Abnormal Lab Results - Last 24 Hours (Table) 04/11/18 04/11/18 Range/Units 07:55 07:55 RBC 3.31 L (4.30-5.90) m/uL Hgb 9.3 L (13.0-17.5) gm/dL Hct 28.9 L (39.0-53.0) % Plt Count 120 L (150-450) k/uL Lymphocytes # 0.9 L (1.0-4.8) k/uL Creatinine 1.37 H (0.66-1.25) mg/dL Glucose 114 H (74-99) mg/dL Microbiology - Last 24 Hours (Table) 04/05/18 14:57 Blood Culture - Preliminary Blood No Growth after 120 hours 04/08/18 10:51 Gram Stain - Final Buttock Wound Culture - Final Methicillin resist S. aureus 04/08/18 10:51 Anaerobic Culture - Preliminary Buttock Assessment and Plan Assessment: s/p I and D buttock abscess Plan: Cont wound vac, medical management
--- NOTE | 2018-04-11 12:32 | P.PN ---
Subjective Progress Note Date: 04/11/18 Patient doing well no complaints no bleeding overnight wound VAC in place Objective - Vital Signs Vital signs: Vital Signs Temp 97.5 F L 04/11/18 06:30 Pulse 78 04/11/18 06:30 Resp 20 04/11/18 06:30 BP 104/69 04/11/18 06:30 Pulse Ox 98 04/11/18 06:30 Intake & Output 04/10/18 04/11/18 04/11/18 18:59 06:59 18:59 Intake Total 800 Output Total 825 Balance -825 800 Intake: Oral 800 Output: Urine 825 Other: # Voids 2 1 - Constitutional General appearance: Present: cooperative - Respiratory Details: Nonlabored - Gastrointestinal Gastrointestinal Comment(s): Soft nontender nondistended - Integumentary Integumentary Comment(s): Wound VAC in place no drainage - Psychiatric Psychiatric: Present: A&O x's 3 - Labs CBC & Chem 7: 04/11/18 07:55 04/11/18 07:55 Labs: Abnormal Lab Results - Last 24 Hours (Table) 04/11/18 04/11/18 Range/Units 07:55 07:55 RBC 3.31 L (4.30-5.90) m/uL Hgb 9.3 L (13.0-17.5) gm/dL Hct 28.9 L (39.0-53.0) % Plt Count 120 L (150-450) k/uL Lymphocytes # 0.9 L (1.0-4.8) k/uL Creatinine 1.37 H (0.66-1.25) mg/dL Glucose 114 H (74-99) mg/dL Microbiology - Last 24 Hours (Table) 04/05/18 14:57 Blood Culture - Preliminary Blood No Growth after 120 hours 04/08/18 10:51 Gram Stain - Final Buttock Wound Culture - Final Methicillin resist S. aureus 04/08/18 10:51 Anaerobic Culture - Preliminary Buttock Assessment and Plan Assessment: s/p I and D buttock abscess Plan: Cont wound vac, medical management
[2018-04-11] MEDS: VANCOMYCIN 2,000 MG in SODIUM CHLORIDE 0.9% 500 ML IVPB SCH (15:47)
--- NOTE | 2018-04-11 19:58 | P.PN ---
Subjective Progress Note Date: 04/11/18 This is a 72-year-old male patient of Dr. Grissom and Dr. Dominguez with known medical history of hypertension, hyperlipidemia and benign prostatic hypertrophy, chronic back pain, gout, osteoarthritis and borderline diabetes, chronic atrial fibrillation, pulmonary hypertension, obstructive sleep apnea unable to tolerate CPAP. He has had admissions at the beginning of this year for pneumonia and acute diastolic heart failure. His last echocardiogram revealed EF of 55-60%, LVH, severely dilated left atrium, right ventricular systolic pressure 48 consistent with moderate pulmonary hypertension. Patient gives history that on night he felt there was a tender area that he thought was a bug bite like a mosquito and it was very itchy. By the next day was quite tender. He applied bacitracin and covered. Yesterday he had an appointment to get his Coumadin checked and well in the office he saw Dr. Jenkins who told him to come into the hospital to have this area checked and start antibiotics. He denies having any fever or chills. He states it is very swollen and warm to the touch. The area has been draining. Patient presented to [facility] emergency center for evaluation area and patient was afebrile. EKG was A. fib at a rate of 92, white count 14.6, BUN 21 creatinine 1.17. Lactic acid 1.2, INR 2.4. CT of the pelvis with contrast revealed a right subcutaneous gluteal inflammatory process with phlegmon and surrounding inflammatory change. No drainable abscesses appreciated. Patient has been seen by Dr. Houser and started on Zosyn and vancomycin. Wound culture was obtained this morning. Consult has been added in for Dr. Vaz. 04/07: Patient has been seen by Dr. Vaz with no plan for surgical intervention at this point. Patient is continued on IV vancomycin and Zosyn. Patient states he feels the wound area is smaller and is continuing to drain. Wound culture is presumptive staph aureus. Patient will be placed in isolation. Patient denies any chest pain, shortness of breath or increased lower extremity edema. Patient is refusing CBGs which will be discontinued. A1c is 5.6. 04/08: Patient is gone for surgical debridement with Dr. Vaz. White count is normal at 6.9, hemoglobin is 13.5, INR is 2.4. Patient has been continued on Coumadin during this hospitalization. 04/09: Yesterday, patient underwent excisional debridement and drainage of an abscess and placement of a wound VAC for cellulitis and skin necrosis and abscess in the right buttocks. Patient tolerated the procedure well. He did not have any immediate postop complications. According to nursing staff, patient had bleeding during the night and the wound VAC had to be removed and a large clot was removed. Patient has had continuous bleeding on the day shift with clots. Vitamin K ordered. Coumadin is on hold. Repeat CBC every [address] Vaz to reassess. Despite the bleeding, the wound appears much improved from yesterday. 04/10: doing well no diarrhea no fever chills, wound vac operational, pain controlled. cultures intraoperative pending. discussed with Dr Houser. preliminary MRSA 04/11: doing well MRSA on ID, wound vacc ok to be replace today. mostlikely discharge in am with final recommendation for ab from ID and wound care isntruction from dr Vaz. Objective - Vital Signs Vital signs: Vital Signs Temp 97.5 F L 04/11/18 06:30 Pulse 78 04/11/18 06:30 Resp 20 04/11/18 06:30 BP 104/69 04/11/18 06:30 Pulse Ox 98 04/11/18 06:30 Intake & Output 04/10/18 04/11/18 04/11/18 18:59 06:59 18:59 Intake Total 800 Output Total 825 Balance -825 800 Intake: Oral 800 Output: Urine 825 Other: # Voids 2 1 - Constitutional General appearance: Present: cooperative - EENT Eyes: Present: anicteric sclerae, dentition normal, normal appearance ENT: Present: hearing grossly normal, normal oropharynx - Neck Neck: Present: normal ROM - Respiratory Respiratory: bilateral: CTA, negative: diminished, dullness, rales - Cardiovascular Rhythm: regular Heart sounds: normal: S1 - Gastrointestinal General gastrointestinal: Present: normal bowel sounds, soft - Integumentary Integumentary: Present: decreased turgor, normal - Neurologic Neurologic: Present: CNII-XII intact - Musculoskeletal Musculoskeletal: Present: gait normal, strength equal bilaterally - Psychiatric Psychiatric: Present: A&O x's 3, appropriate affect - Labs CBC & Chem 7: 04/11/18 07:55 04/11/18 07:55 Labs: Abnormal Lab Results - Last 24 Hours (Table) 04/11/18 04/11/18 Range/Units 07:55 07:55 RBC 3.31 L (4.30-5.90) m/uL Hgb 9.3 L (13.0-17.5) gm/dL Hct 28.9 L (39.0-53.0) % Plt Count 120 L (150-450) k/uL Lymphocytes # 0.9 L (1.0-4.8) k/uL Creatinine 1.37 H (0.66-1.25) mg/dL Glucose 114 H (74-99) mg/dL Microbiology - Last 24 Hours (Table) 04/05/18 14:57 Blood Culture - Preliminary Blood No Growth after 120 hours 04/08/18 10:51 Gram Stain - Final Buttock Wound Culture - Final Methicillin resist S. aureus 04/08/18 10:51 Anaerobic Culture - Preliminary Buttock Assessment and Plan Plan: 1. Abscess right buttock with sepsis. MRSA isolated CAT scan as above. s/p I and D 04/09/18, wound vac Dr. Houser has evaluated. Patient is currently on Zosyn and vancomycin. Wound VAC in place. Blood culture no growth after [address] Vaz is appreciated 2. Acute bleeding on the surgical site with possible acute blood loss anemia. Hemoglobin will be checked every 8 hours. Coumadin placed on hold, status post vitamin K. 3. Chronic atrial fibrillation. Continue Cardizem 30 mg 3 times daily, Lopressor 100 mg twice daily and Coumadin at home dosing. Continue to monitor INR. 4. Secondary moderate pulmonary hypertension with systolic pressure of 48 secondary to obstructive sleep apnea, unable to tolerate CPAP and follow-up with Dr Desir for pulmonary hypertension clinic. 5. Hypertension. Continue the Cipro 20 mg daily, Lopressor 100 mg twice daily , Aldactone 25 mg daily. 6. Chronic diastolic heart failure. Continue Lasix 40 mg PO every 12 hours and Aldactone 25 mg daily. 7. Benign prostatic hypertrophy. Continue Cardura. 8. Hyperlipidemia. Continue Pravachol. 9. Gout unspecified. Continue colchicine and allopurinol. 10. Chronic low back pain and generalized osteoarthritis, stable. 11. Diabetes has been ruled out. Globin A1c 5.6. 12. DVT prophylaxis. Patient is on Coumadin. 13. Gastrointestinal prophylaxis. Protonix
[2018-04-11] MEDS ORDERED: WARFARIN 7.5 MG TAB PO ONE (20:00)
[2018-04-11] MEDS: PRAVASTATIN SODIUM 20 MG TAB PO SCH (21:00)
[2018-04-11] MEDS: POTASSIUM CHLORIDE ER 10 MEQ TAB.ER.PRT PO SCH (21:00)
[2018-04-11] MEDS: DOXAZOSIN 4 MG TAB PO SCH (21:01)
[2018-04-11] MEDS: ALLOPURINOL 100 MG TAB PO SCH (21:01)
[2018-04-12 07:59] LABS: Basophils % (A) 0 %; Eosinophils # (A) 0.2 k/uL (0-0.7); Eosinophils % (A) 3 %; HCT 29.6 % (39.0-53.0); HGB 9.6 gm/dL (13.0-17.5); Lymphocytes # (A) 1.2 k/uL (1.0-4.8); Lymphocytes % (A) 17 %; MCH 28.1 pg (25.0-35.0); MCHC 32.4 g/dL (31.0-37.0); MCV 86.6 fL (80.0-100.0); Mean Platelet Volume 6.7; Monocytes # (A) 0.5 k/uL (0-1.0); Monocytes % (A) 7 %; Neutrophils # (A) 4.9 k/uL (1.3-7.7); Neutrophils % (A) 72 %; Platelet Count 136 k/uL (150-450); RBC 3.42 m/uL (4.30-5.90); RDW 13.7 % (11.5-15.5); WBC 6.8 k/uL (3.8-10.6)
[2018-04-12 08:02] LABS: INR 1.2 (<1.2); Prothrombin Time 11.2 sec (9.0-12.0)
[2018-04-12 08:19] LABS: Calcium 9.2 mg/dL (8.4-10.2); Potassium 3.9 mmol/L (3.5-5.1)
[2018-04-12] MEDS: SPIRONOLACTONE 25 MG TAB PO SCH (08:53)
[2018-04-12] MEDS: DILTIAZEM ORAL 30 MG TAB PO SCH ×3 (08:53→20:57)
[2018-04-12] MEDS: FUROSEMIDE 40 MG TAB PO SCH ×2 (08:54→16:27)
[2018-04-12] MEDS: COLCHICINE 0.6 MG EACH PO SCH (08:54)
[2018-04-12] MEDS: VANCOMYCIN 2,000 MG in SODIUM CHLORIDE 0.9% 500 ML IVPB SCH ×2 (08:54→23:49)
[2018-04-12] MEDS: METOPROLOL TARTRATE 50 MG TAB PO SCH ×2 (08:54→20:56)
--- NOTE | 2018-04-12 12:31 | P.PN ---
Progress Note - Text Progress Note Date: 04/12/18 The patient is doing well. No further bleeding. No problems with the wound vac staying in place. Minimal drainage. C&S shows MRSA A: S/P debridement with I&D, S/P control of bleeding with mild anemia P: From a surgical standpoint, he would be stable for discharge with the wound vac. I anticipate it will need to be in place 2-3 weeks. Antibiotics per infectious diseases. F/U with me in 2-3 weeks
[2018-04-12 15:11] VITALS: BMI 48.8
--- NOTE | 2018-04-12 15:53 | P.PN ---
Subjective Progress Note Date: 04/12/18 This is a 72-year-old male patient of Dr. Grissom and Dr. Dominguez with known medical history of hypertension, hyperlipidemia and benign prostatic hypertrophy, chronic back pain, gout, osteoarthritis and borderline diabetes, chronic atrial fibrillation, pulmonary hypertension, obstructive sleep apnea unable to tolerate CPAP. He has had admissions at the beginning of this year for pneumonia and acute diastolic heart failure. His last echocardiogram revealed EF of 55-60%, LVH, severely dilated left atrium, right ventricular systolic pressure 48 consistent with moderate pulmonary hypertension. Patient gives history that on night he felt there was a tender area that he thought was a bug bite like a mosquito and it was very itchy. By the next day was quite tender. He applied bacitracin and covered. Yesterday he had an appointment to get his Coumadin checked and well in the office he saw Dr. Jenkins who told him to come into the hospital to have this area checked and start antibiotics. He denies having any fever or chills. He states it is very swollen and warm to the touch. The area has been draining. Patient presented to [facility] emergency center for evaluation area and patient was afebrile. EKG was A. fib at a rate of 92, white count 14.6, BUN 21 creatinine 1.17. Lactic acid 1.2, INR 2.4. CT of the pelvis with contrast revealed a right subcutaneous gluteal inflammatory process with phlegmon and surrounding inflammatory change. No drainable abscesses appreciated. Patient has been seen by Dr. Houser and started on Zosyn and vancomycin. Wound culture was obtained this morning. Consult has been added in for Dr. Vaz. 04/07: Patient has been seen by Dr. Vaz with no plan for surgical intervention at this point. Patient is continued on IV vancomycin and Zosyn. Patient states he feels the wound area is smaller and is continuing to drain. Wound culture is presumptive staph aureus. Patient will be placed in isolation. Patient denies any chest pain, shortness of breath or increased lower extremity edema. Patient is refusing CBGs which will be discontinued. A1c is 5.6. 04/08: Patient is gone for surgical debridement with Dr. Vaz. White count is normal at 6.9, hemoglobin is 13.5, INR is 2.4. Patient has been continued on Coumadin during this hospitalization. 04/09: Yesterday, patient underwent excisional debridement and drainage of an abscess and placement of a wound VAC for cellulitis and skin necrosis and abscess in the right buttocks. Patient tolerated the procedure well. He did not have any immediate postop complications. According to nursing staff, patient had bleeding during the night and the wound VAC had to be removed and a large clot was removed. Patient has had continuous bleeding on the day shift with clots. Vitamin K ordered. Coumadin is on hold. Repeat CBC every [address] Vaz to reassess. Despite the bleeding, the wound appears much improved from yesterday. 04/10: doing well no diarrhea no fever chills, wound vac operational, pain controlled. cultures intraoperative pending. discussed with Dr Houser. preliminary MRSA 04/11: doing well MRSA on ID, wound vacc ok to be replace today. mostlikely discharge in am with final recommendation for ab from ID and wound care isntruction from dr Vaz. 04/12: Patient is feeling well, afebrile, being prepared for discharge home. Wound VAC is delayed delivery to his home. Antibiotics clarified with Dr. Houser for doxycycline for 10 day course. Anticipate patient will be ready for discharge tomorrow. Objective - Vital Signs Vital signs: Vital Signs Temp 97.0 F L 04/12/18 07:00 Pulse 90 04/12/18 07:00 Resp 18 04/12/18 07:00 BP 93/64 04/12/18 07:00 Pulse Ox 98 04/12/18 07:00 Intake & Output 04/11/18 04/12/18 04/12/18 18:59 06:59 18:59 Output Total 400 Balance -400 Output: Urine 400 Other: # Voids 2 2 - Exam General appearance: cooperative, morbidly obese - EENT Eyes: EOMI, PERRLA, dentition normal, normal appearance ENT: NA/AT, normal oropharynx - Neck Neck: normal ROM - Respiratory Respiratory: bilateral: CTA, negative: diminished, dullness - Cardiovascular Rhythm: irregularly irregular Heart sounds: normal: S1, S2, systolic ejection murmur - Gastrointestinal General gastrointestinal: normal bowel sounds, soft - Integumentary Integumentary: decreased turgor, normal, on the right buttocks medial side, wound VAC in place. - Neurologic Neurologic: CNII-XII intact - Musculoskeletal Musculoskeletal: generalized weakness, strength equal bilaterally - Psychiatric Psychiatric: A&O x's 3, appropriate affect, intact judgment & insight - Labs CBC & Chem 7: 04/12/18 07:25 04/12/18 07:25 Labs: Abnormal Lab Results - Last 24 Hours (Table) 04/12/18 04/12/18 04/12/18 Range/Units 07:25 07:25 07:25 RBC 3.42 L (4.30-5.90) m/uL Hgb 9.6 L (13.0-17.5) gm/dL Hct 29.6 L (39.0-53.0) % Plt Count 136 L (150-450) k/uL INR 1.2 H (<1.2) Creatinine 1.28 H (0.66-1.25) mg/dL Glucose 112 H (74-99) mg/dL Microbiology - Last 24 Hours (Table) 04/05/18 14:57 Blood Culture - Final Blood No Growth after 144 hours Assessment and Plan Plan: 1. Abscess right buttock with sepsis. CAT scan as above. Dr. Houser has evaluated. Patient is currently on Zosyn and vancomycin. Wound culture MRSA. Blood culture no growth after [address] Vaz is appreciated. Status post I and D, wound VAC in place. 2. Acute bleeding at the surgical site with acute blood loss anemia. Hemoglobin will be checked every 8 hours. Coumadin placed on hold, status post vitamin K. 3. Chronic atrial fibrillation. Continue Cardizem 30 mg 3 times daily, Lopressor 100 mg twice daily and Coumadin at home dosing. Continue to monitor INR. 4. Secondary moderate pulmonary hypertension with systolic pressure of 48 secondary to obstructive sleep apnea, unable to tolerate CPAP and follow-up with Dr Desir for pulmonary hypertension clinic. 5. Hypertension. Continue Cardizem 30 mg 3 times daily, Lasix 40 mg twice daily, Lopressor 100 mg twice daily, Aldactone 25 mg daily. 6. Chronic diastolic heart failure. Continue Lasix 40 mg PO every 12 hours and Aldactone 25 mg daily. 7. Benign prostatic hypertrophy. Continue Cardura. 8. Hyperlipidemia. Continue Pravachol. 9. Gout unspecified. Continue colchicine and allopurinol. 10. Chronic low back pain and generalized osteoarthritis, stable. 11. Diabetes has been ruled out. Globin A1c 5.6. 12. DVT prophylaxis. Patient is on Coumadin. 13. Gastrointestinal prophylaxis. Protonix Discharge plan: return home with VNA once a wound VAC is delivered. Impression and plan of care have been directed as dictated by the signing physician. Linda Maloney nurse practitioner acting as scribe for signing physician.
[2018-04-12] MEDS ORDERED: WARFARIN 7.5 MG TAB PO ONE (18:00)
[2018-04-12] MEDS: POTASSIUM CHLORIDE ER 10 MEQ TAB.ER.PRT PO SCH (20:56)
[2018-04-12] MEDS: DOXAZOSIN 4 MG TAB PO SCH (20:56)
[2018-04-12] MEDS: ALLOPURINOL 100 MG TAB PO SCH (20:56)
[2018-04-12] MEDS: PRAVASTATIN SODIUM 20 MG TAB PO SCH (20:57)
[2018-04-13 06:18] VITALS: BP 106/70; PULSE 85; RESP 20; TEMP 97.5
[2018-04-13] MEDS: METOPROLOL TARTRATE 50 MG TAB PO SCH (07:56)
[2018-04-13] MEDS: SPIRONOLACTONE 25 MG TAB PO SCH (07:56)
[2018-04-13] MEDS: FUROSEMIDE 40 MG TAB PO SCH (07:56)
[2018-04-13] MEDS: COLCHICINE 0.6 MG EACH PO SCH (07:57)
[2018-04-13] MEDS: DILTIAZEM ORAL 30 MG TAB PO SCH (07:57)
--- NOTE | 2018-04-13 08:17 | PN ---
PROGRESS NOTE DATE OF SERVICE: 04/12/2018 REASON FOR FOLLOWUP: Right gluteal MRSA abscess and cellulitis. INTERVAL HISTORY: The patient is currently afebrile. He is breathing comfortably. Denies having a chest pain, shortness of breath or cough. No abdominal pain. No pain to the right gluteal area. PHYSICAL EXAMINATION: Blood pressure is 157/77 with a pulse of 73, temperature of 97.6, he is 97% on room air. General description is an elderly male, lying in bed in no distress. RESPIRATORY SYSTEM: Unlabored breathing, clear to auscultation anteriorly. HEART: S1, S2. Regular rate and rhythm. ABDOMEN: Soft, no tenderness. Right gluteal wound is currently covered with wound VAC with no bleeding or any redness. LABS: Hemoglobin 9.6, white count of 6.8. BUN of 12, creatinine 1.28. DIAGNOSTIC IMPRESSION AND PLAN: Patient with right gluteal methicillin-resistant Staphylococcus aureus abscess and cellulitis, status post drainage. Local wound care with wound VAC, antibiotic will transition to oral doxycycline 100 mg twice a day for about 10 days with close outpatient followup. MMODL / IJN: [id number] /
[2018-04-13 09:15] LABS: Basophils % (A) 0 %; Eosinophils # (A) 0.2 k/uL (0-0.7); Eosinophils % (A) 2 %; HCT 30.2 % (39.0-53.0); HGB 9.8 gm/dL (13.0-17.5); Lymphocytes # (A) 1.2 k/uL (1.0-4.8); Lymphocytes % (A) 16 %; MCH 28.8 pg (25.0-35.0); MCHC 32.5 g/dL (31.0-37.0); MCV 88.7 fL (80.0-100.0); Mean Platelet Volume 6.5; Monocytes # (A) 0.6 k/uL (0-1.0); Monocytes % (A) 8 %; Neutrophils # (A) 5.4 k/uL (1.3-7.7); Neutrophils % (A) 73 %; Platelet Count 135 k/uL (150-450); RBC 3.41 m/uL (4.30-5.90); RDW 13.7 % (11.5-15.5); WBC 7.4 k/uL (3.8-10.6)
[2018-04-13 09:21] LABS: INR 1.2 (<1.2); Prothrombin Time 11.7 sec (9.0-12.0)
--- NOTE | 2018-04-13 10:11 | P.DS ---
Providers Date of admission: 04/05/18 17:50 Expected date of discharge: 04/13/18 Attending physician: Anish Espino Consults: 04/05/18 17:49 Consult Physician Urgent Consulting Provider: Tonya Houser Consult Reason/Comments: Cellulitis, sepsis Do you want consulting provider notified?: Yes 04/06/18 11:19 Consult Physician Routine Consulting Provider: Melissa Vaz Consult Reason/Comments: abscess buttocks Do you want consulting provider notified?: Yes Primary care physician: [facility] Hospital Course: This is a 72-year-old male patient of Dr. Grissom and Dr. Dominguez with known medical history of hypertension, hyperlipidemia and benign prostatic hypertrophy, chronic back pain, gout, osteoarthritis and borderline diabetes, chronic atrial fibrillation, pulmonary hypertension, obstructive sleep apnea unable to tolerate CPAP. He has had admissions at the beginning of this year for pneumonia and acute diastolic heart failure. His last echocardiogram revealed EF of 55-60%, LVH, severely dilated left atrium, right ventricular systolic pressure 48 consistent with moderate pulmonary hypertension. Patient gives history that on night he felt there was a tender area that he thought was a bug bite like a mosquito and it was very itchy. By the next day was quite tender. He applied bacitracin and covered. Yesterday he had an appointment to get his Coumadin checked and well in the office he saw Dr. Jenkins who told him to come into the hospital to have this area checked and start antibiotics. He denies having any fever or chills. He states it is very swollen and warm to the touch. The area has been draining. Patient presented to [facility] emergency center for evaluation area and patient was afebrile. EKG was A. fib at a rate of 92, white count 14.6, BUN 21 creatinine 1.17. Lactic acid 1.2, INR 2.4. CT of the pelvis with contrast revealed a right subcutaneous gluteal inflammatory process with phlegmon and surrounding inflammatory change. No drainable abscesses appreciated. Patient has been seen by Dr. Houser and started on Zosyn and vancomycin. Wound culture was obtained this morning. Consult has been added in for Dr. Vaz. 04/07: Patient has been seen by Dr. Vaz with no plan for surgical intervention at this point. Patient is continued on IV vancomycin and Zosyn. Patient states he feels the wound area is smaller and is continuing to drain. Wound culture is presumptive staph aureus. Patient will be placed in isolation. Patient denies any chest pain, shortness of breath or increased lower extremity edema. Patient is refusing CBGs which will be discontinued. A1c is 5.6. 04/08: Patient is gone for surgical debridement with Dr. Vaz. White count is normal at 6.9, hemoglobin is 13.5, INR is 2.4. Patient has been continued on Coumadin during this hospitalization. 04/09: Yesterday, patient underwent excisional debridement and drainage of an abscess and placement of a wound VAC for cellulitis and skin necrosis and abscess in the right buttocks. Patient tolerated the procedure well. He did not have any immediate postop complications. According to nursing staff, patient had bleeding during the night and the wound VAC had to be removed and a large clot was removed. Patient has had continuous bleeding on the day shift with clots. Vitamin K ordered. Coumadin is on hold. Repeat CBC every [address] Vaz to reassess. Despite the bleeding, the wound appears much improved from yesterday. 04/10: doing well no diarrhea no fever chills, wound vac operational, pain controlled. cultures intraoperative pending. discussed with Dr Houser. preliminary MRSA 04/11: doing well MRSA on ID, wound vacc ok to be replace today. mostlikely discharge in am with final recommendation for ab from ID and wound care isntruction from dr Vaz. 04/12: Patient is feeling well, afebrile, being prepared for discharge home. Wound VAC is delayed delivery to his home. Antibiotics clarified with Dr. Houser for doxycycline for 10 day course. Anticipate patient will be ready for discharge tomorrow. 04/13: Patient's discharge was delayed only due to wound VAC delivery. Anticipate this will be delivered today and patient will be discharged home. No change in medication reconciliation. Discharge diagnoses: 1. Abscess right buttock with sepsis. MRSA isolated, s/p I and D 04/09/18, wound vac 2. Acute bleeding on the surgical site with possible acute blood loss anemia. 3. Chronic atrial fibrillation. 4. Secondary moderate pulmonary hypertension with systolic pressure of 48 secondary to obstructive sleep apnea, unable to tolerate CPAP 5. Hypertension. 6. Chronic diastolic heart failure. 7. Benign prostatic hypertrophy. 8. Hyperlipidemia. 9. Gout unspecified. 10. Chronic low back pain and generalized osteoarthritis, stable. 11. Diabetes has been ruled out. Globin A1c 5.6. Discharge plan: Home with [facility] Impression and plan of care have been directed as dictated by the signing physician. Linda Maloney nurse practitioner acting as scribe for signing physician. Patient Condition at Discharge: Good Plan - Discharge Summary Discharge Rx Participant: No New Discharge Prescriptions: New Doxycycline Hyclate 100 mg PO BID #20 tab Continue Spironolactone [Aldactone] 25 mg PO DAILY Pravastatin Sodium [Pravachol] 20 mg PO HS Allopurinol [Zyloprim] 100 mg PO HS Potassium Chloride [Klor-Con 10] 10 meq PO HS Colchicine [Colcrys] 0.6 mg PO BID Doxazosin Mesylate [Cardura] 8 mg PO HS Furosemide [Lasix] 40 mg PO BID@0900,1600 #60 tab Metoprolol Tartrate [Lopressor] 100 mg PO BID #120 tab Diltiazem Oral [Cardizem*] 30 mg PO TID #90 tab Warfarin Sodium [Coumadin] 7.5 mg PO SUMOWETHSA #0 Warfarin Sodium [Coumadin] 5 mg PO TUFR #0 Discontinued Benazepril HCl [Lotensin] 20 mg PO DAILY Discharge Medication List Allopurinol [Zyloprim] 100 mg PO HS 12/10/15 [History] Potassium Chloride [Klor-Con 10] 10 meq PO HS 12/10/15 [History] Pravastatin Sodium [Pravachol] 20 mg PO HS 12/10/15 [History] Spironolactone [Aldactone] 25 mg PO DAILY 12/10/15 [History] Colchicine [Colcrys] 0.6 mg PO BID 09/27/16 [History] Doxazosin Mesylate [Cardura] 8 mg PO HS 09/27/16 [History] Furosemide [Lasix] 40 mg PO BID@0900,1600 #60 tab 10/15/17 [Rx] Metoprolol Tartrate [Lopressor] 100 mg PO BID #120 tab 10/16/17 [Rx] Diltiazem Oral [Cardizem*] 30 mg PO TID #90 tab 11/06/17 [Rx] Warfarin Sodium [Coumadin] 5 mg PO TUFR #0 11/06/17 [Rx] Warfarin Sodium [Coumadin] 7.5 mg PO SUMOWETHSA #0 11/06/17 [Rx] Doxycycline Hyclate 100 mg PO BID #20 tab 04/12/18 [Rx] Follow up Appointment(s)/Referral(s): Melissa Vaz DO [Doctor of Osteopathic Medicine] - 04/27/18 11:00 am () Gianluca Grissom MD [Primary Care Provider] - 04/19/18 11:00 am Tonya Houser MD [STAFF PHYSICIAN] - 04/15/18 11:45 am [facility] Visiting Nurse, [NON-STAFF] - 1 Week Patient Instructions/Handouts: Heart Failure (DC), MRSA (Methicillin-Resistant Staphylococcus Aureus) (DC), Cellulitis (DC), Sepsis (GEN) Activity/Diet/Wound Care/Special Instructions: Cardiac diet. Activity as tolerated. Stay of wound vac site, change positions every 2 hours. Discharge Disposition: HOME WITH HOME HEALTH SERVICES
[2018-04-13] MEDS ORDERED: VANCOMYCIN TROUGH DUE 1 EACH MISC MISCELLANE ONE (15:00)
== END 2018-04-13 11:31 | disposition home health service (06) | DRG 854 ==
LOC: EC 10:59 → 4MS4W 17:50
PROVIDERS: ADMIT Internal Medicine; ATTEND Internal Medicine
PROC: 0J9900Z Drainage of Buttock Subcutaneous Tissue and Fascia with Drainage Device, Open Approach (ICD-10-PCS; 2018-04-08)
PROC: 0JB90ZZ Excision of Buttock Subcutaneous Tissue and Fascia, Open Approach (ICD-10-PCS; principal; 2018-04-08 14:05)
PROC: 0Y3 Anatomical Regions, Lower Extremities, Control (ICD-10-PCS; 2018-04-09)
DX: A41.02 Sepsis due to Methicillin resistant Staphylococcus aureus (principal); L02.31 Cutaneous abscess of buttock; I50.32 Chronic diastolic (congestive) heart failure; I96 Gangrene, not elsewhere classified; L03.317 Cellulitis of buttock; Z68.42 Body mass index [BMI] 45.0-49.9, adult; L76.21 Postprocedural hemorrhage of skin and subcutaneous tissue following a dermatologic procedure; D62 Acute posthemorrhagic anemia; E78.5 Hyperlipidemia, unspecified; G47.33 Obstructive sleep apnea (adult) (pediatric); G89.29 Other chronic pain; I11.0 Hypertensive heart disease with heart failure; I27.20 Pulmonary hypertension, unspecified; I48.2 Chronic atrial fibrillation; I87.2 Venous insufficiency (chronic) (peripheral); I87.8 Other specified disorders of veins; K21.9 Gastro-esophageal reflux disease without esophagitis; M10.9 Gout, unspecified; M15.9 Polyosteoarthritis, unspecified; N40.0 Benign prostatic hyperplasia without lower urinary tract symptoms; Z78.9 Other specified health status; Z79.01 Long term (current) use of anticoagulants; Z82.3 Family history of stroke; Z87.891 Personal history of nicotine dependence; Z96.651 Presence of right artificial knee joint; Z87.01 Personal history of pneumonia (recurrent); E66.01 Morbid (severe) obesity due to excess calories; Z79.899 Other long term (current) drug therapy; Y83.8 Other surgical procedures as the cause of abnormal reaction of the patient, or of later complication, without mention of misadventure at the time of the procedure; Y92.230 Patient room in hospital as the place of occurrence of the external cause
CPT/HCPCS: 36415; 72193; 80048; 80053; 80202; 81001; 83036; 83605; 85025; 85027; 85610; 85730; 87040; 87070; 87075; 87077; 87086; 87186; 87205; 88304; 93005; 96365; 96367; 99285

== ENCOUNTER 2019-10-17 09:35 | Inpatient (IN) | payer MEDICARE, BC ==
[2019-10-17] MEDS ORDERED: SODIUM CHLORIDE 0.9% 500 ML 500 ML IV STA ×3 (09:50→12:06)
[2019-10-17] MEDS ORDERED: IPRATROPIUM-ALBUTEROL 3 ML NEB INHALATION STA (09:50)
[2019-10-17] MEDS ORDERED: SODIUM CHLORIDE 0.9% 1,000 ML IV STA ×2 (09:50→10:29)
--- NOTE | 2019-10-17 09:53 | ED ---
SOB HPI - General Chief Complaint: Shortness of Breath Stated Complaint: sent by /difficulty breathing Time Seen by Provider: 10/17/19 09:49 Source: patient, RN notes reviewed Mode of arrival: ambulatory Limitations: no limitations - History of Present Illness Initial Comments: This is a 74-year-old male history of congestive heart failure in the past who states he been fighting shortness of breath for the past 6 weeks skin progressively worse he was seen at his doctor's office today and found have a low pulse ox as well as hypotension upon arrival he was noted have a blood pressure 73/44 he did feel somewhat lightheaded and weak. He denies any overt fevers chills cough or phlegm production rhinorrhea no other modifying factors she states is actually loss weight is having exertional dyspnea no overt chest pain. He states the edema in his legs is actually improved. The patient did admit that he has not been eating and drinking very much recently MD Complaint: shortness of breath - Related Data Home Medications Medication Instructions Recorded Confirmed Allopurinol [Zyloprim] 100 mg PO HS 12/10/15 10/17/19 Potassium Chloride [Klor-Con 10] 10 meq PO W/SUPPER 12/10/15 10/17/19 Pravastatin Sodium [Pravachol] 20 mg PO HS 12/10/15 10/17/19 Spironolactone [Aldactone] 25 mg PO DAILY 12/10/15 10/17/19 Colchicine [Colcrys] 0.6 mg PO BID 09/27/16 10/17/19 Doxazosin Mesylate [Cardura] 8 mg PO HS 09/27/16 10/17/19 Albuterol Inhaler [Ventolin Hfa 2 puff INHALATION RT-Q4H PRN 10/17/19 10/17/19 Inhaler] Benazepril HCl 20 mg PO DAILY 10/17/19 10/17/19 Diltiazem Oral [Cardizem*] 30 mg PO BID 10/17/19 10/17/19 Furosemide [Lasix] 40 mg PO BID 10/17/19 10/17/19 Metoprolol Tartrate [Lopressor] 100 mg PO BID-W/MEALS 10/17/19 10/17/19 Warfarin Sodium [Coumadin] 5 mg PO SUMOWETHFR 10/17/19 10/17/19 Warfarin Sodium [Coumadin] 7.5 mg PO TUSA 10/17/19 10/17/19 Allergies Allergy/AdvReac Type Severity Reaction Status Date / Time No Known Allergies Allergy Verified 10/17/19 10:46 Review of Systems ROS Statement: Those systems with pertinent positive or pertinent negative responses have been documented in the HPI. ROS Other: All systems not noted in ROS Statement are negative. Past Medical History Past Medical History: Atrial Fibrillation, Heart Failure, GERD/Reflux, Hyperlipidemia, Hypertension, Osteoarthritis (OA), Prostate Disorder, Sleep Apnea/CPAP/BIPAP Additional Past Medical History / Comment(s): Pt recently admitted to [facility] on 10/13/17 with acute respiratory failure 2ndary to interstitial pneumonia/sepsis and CHF. Other hx: Chronic Afib, CHLOE without device,occ back pain, gout. Chronic venous stasis History of Any Multi-Drug Resistant Organisms: MRSA Date of last positivie culture/infection: 04/08/18 MDRO Source:: buttock wound Past Surgical History: Cholecystectomy, Joint Replacement Additional Past Surgical History / Comment(s): 02/19/17 diagnostic cardiac cath, right total knee arthroplasty, ventral hernia repair Past Anesthesia/Blood Transfusion Reactions: No Reported Reaction Past Psychological History: No Psychological Hx Reported Smoking Status: Former smoker Past Alcohol Use History: None Reported Past Drug Use History: None Reported - Past Family History Father Family Medical History: No Reported History Additional Family Medical History / Comment(s): Dad at age 89 from stroke. Mother Family Medical History: No Reported History Additional Family Medical History / Comment(s): Mother is alive at age 90 with dementia. Sister(s) Additional Family Medical History / Comment(s): Patient has 2 sisters with no major medical problems. Patient does not have any brothers. Patient has 2 adult children with no major medical problems. General Exam - General Exam Comments Initial Comments: This is a well-developed morbidly obese male who is awake alert oriented 3 Limitations: no limitations General appearance: alert, anxious, in distress Head exam: Present: atraumatic, normocephalic, normal inspection Eye exam: Present: normal appearance, PERRL, EOMI. Absent: scleral icterus, conjunctival injection, periorbital swelling ENT exam: Present: mucous membranes dry Neck exam: Present: normal inspection. Absent: tenderness, meningismus, lymphadenopathy Respiratory exam: Present: decreased breath sounds, other (Some scattered crackles noted). Absent: respiratory distress, wheezes, rales, rhonchi, stridor Cardiovascular Exam: Present: normal rhythm, tachycardia, normal heart sounds. Absent: systolic murmur, diastolic murmur, rubs, gallop, clicks GI/Abdominal exam: Present: soft, normal bowel sounds. Absent: distended, tenderness, guarding, rebound, rigid Extremities exam: Present: full ROM, normal capillary refill, pedal edema. Absent: tenderness, joint swelling, calf tenderness Back exam: Present: normal inspection Neurological exam: Present: alert, oriented X3, CN II-XII intact Psychiatric exam: Present: normal affect, normal mood Skin exam: Present: warm, dry, intact, normal color. Absent: rash Course Vital Signs 10/17/19 10/17/19 10/17/19 09:45 09:47 09:50 Temperature 97.8 F Pulse Rate 102 H 91 Pulse Rate [ Document Controller ] Respiratory 22 Rate Blood Pressure 77/43 O2 Sat by Pulse 80 L 69 L 85 L Oximetry 10/17/19 10/17/19 10/17/19 09:57 09:58 09:59 Temperature Pulse Rate 105 H 96 Pulse Rate [ 97 Document Controller ] Respiratory 28 H Rate Blood Pressure 92/60 O2 Sat by Pulse 96 Oximetry 10/17/19 10/17/19 10/17/19 10:25 11:15 12:04 Temperature 97.9 F Pulse Rate 95 103 H 99 Pulse Rate [ Document Controller ] Respiratory 24 24 20 Rate Blood Pressure 85/58 92/64 98/55 O2 Sat by Pulse 95 93 L 94 L Oximetry Medical Decision Making - Medical Decision Making I did reevaluate patient several occasions he did get improvement after the nebulizer treatment. I did discuss findings with him as well as with Dr. Espino. Patient will be admitted. The patient will be tested for influenza and covid- 19. The elevated lactic acid is likely secondary to dehydration. - Lab Data Result diagrams: 10/17/19 08:50 10/17/19 08:50 Lab Results 10/17/19 10/17/19 10/17/19 Range/Units 08:50 08:50 08:50 WBC 17.6 H (3.8-10.6) k/uL RBC 4.43 (4.30-5.90) m/uL Hgb 12.8 L (13.0-17.5) gm/dL Hct 39.8 (39.0-53.0) % MCV 89.9 (80.0-100.0) fL MCH 28.9 (25.0-35.0) pg MCHC 32.1 (31.0-37.0) g/dL RDW 13.4 (11.5-15.5) % Plt Count 191 (150-450) k/uL Neutrophils % 88 % Lymphocytes % 4 % Monocytes % 6 % Eosinophils % 1 % Basophils % 0 % Neutrophils # 15.5 H (1.3-7.7) k/uL Lymphocytes # 0.6 L (1.0-4.8) k/uL Monocytes # 1.1 H (0-1.0) k/uL Eosinophils # 0.1 (0-0.7) k/uL Basophils # 0.0 (0-0.2) k/uL PT 36.5 H (9.0-12.0) sec INR 3.7 H (<1.2) APTT 42.9 H (22.0-30.0) sec D-Dimer 0.45 (<0.60) mg/L FEU Sodium 138 (137-145) mmol/L Potassium 4.8 (3.5-5.1) mmol/L Chloride 105 (98-107) mmol/L Carbon Dioxide 21 L (22-30) mmol/L Anion Gap 12 mmol/L BUN 61 H (9-20) mg/dL Creatinine 2.24 H (0.66-1.25) mg/dL Est GFR (CKD-EPI)AfAm 33 (>60 ml/min/1.73 sqM) Est GFR (CKD-EPI)NonAf 28 (>60 ml/min/1.73 sqM) Glucose 128 H (74-99) mg/dL Plasma Lactic Acid Virgilio (0.7-2.0) mmol/L Calcium 8.8 (8.4-10.2) mg/dL Magnesium 2.2 (1.6-2.3) mg/dL Total Bilirubin 0.9 (0.2-1.3) mg/dL AST 22 (17-59) U/L ALT 16 (4-49) U/L Alkaline Phosphatase 82 (38-126) U/L Creatine Kinase 43 L (55-170) U/L Troponin I (0.000-0.034) ng/mL NT-Pro-B Natriuret Pep pg/mL Total Protein 6.7 (6.3-8.2) g/dL Albumin 3.8 (3.5-5.0) g/dL 10/17/19 10/17/19 10/17/19 Range/Units 08:50 08:50 08:50 WBC (3.8-10.6) k/uL RBC (4.30-5.90) m/uL Hgb (13.0-17.5) gm/dL Hct (39.0-53.0) % MCV (80.0-100.0) fL MCH (25.0-35.0) pg MCHC (31.0-37.0) g/dL RDW (11.5-15.5) % Plt Count (150-450) k/uL Neutrophils % % Lymphocytes % % Monocytes % % Eosinophils % % Basophils % % Neutrophils # (1.3-7.7) k/uL Lymphocytes # (1.0-4.8) k/uL Monocytes # (0-1.0) k/uL Eosinophils # (0-0.7) k/uL Basophils # (0-0.2) k/uL PT (9.0-12.0) sec INR (<1.2) APTT (22.0-30.0) sec D-Dimer (<0.60) mg/L FEU Sodium (137-145) mmol/L Potassium (3.5-5.1) mmol/L Chloride (98-107) mmol/L Carbon Dioxide (22-30) mmol/L Anion Gap mmol/L BUN (9-20) mg/dL Creatinine (0.66-1.25) mg/dL Est GFR (CKD-EPI)AfAm (>60 ml/min/1.73 sqM) Est GFR (CKD-EPI)NonAf (>60 ml/min/1.73 sqM) Glucose (74-99) mg/dL Plasma Lactic Acid Virgilio 2.2 H* (0.7-2.0) mmol/L Calcium (8.4-10.2) mg/dL Magnesium (1.6-2.3) mg/dL Total Bilirubin (0.2-1.3) mg/dL AST (17-59) U/L ALT (4-49) U/L Alkaline Phosphatase (38-126) U/L Creatine Kinase (55-170) U/L Troponin I 0.014 (0.000-0.034) ng/mL NT-Pro-B Natriuret Pep 4380 pg/mL Total Protein (6.3-8.2) g/dL Albumin (3.5-5.0) g/dL - EKG Data -: EKG Interpreted by Me EKG Comments: Evidence of external junctional rhythm 96 and the heart rate QRS 110 daily since QTC 386/487 that exodeviation low-voltage incomplete right bundle-branch block nonspecific ST configuration prolonged QT syndrome evidence of atrial fibrillation - Radiology Data Radiology results: report reviewed (I did review the imaging and report multiple scattered infiltrates noted. Jacobson), image reviewed Disposition Clinical Impression: Pneumonia, Bronchospasm, Hypotensive episode, Dehydration Disposition: ADMITTED IP TO THIS HOSP Condition: Fair Referrals: Gianluca Grissom MD [Primary Care Provider] - 1-2 days
[2019-10-17 10:06] LABS: Basophils % (A) 0 %; Eosinophils # (A) 0.1 k/uL (0-0.7); Eosinophils % (A) 1 %; HCT 39.8 % (39.0-53.0); HGB 12.8 gm/dL (13.0-17.5); Lymphocytes # (A) 0.6 k/uL (1.0-4.8); Lymphocytes % (A) 4 %; MCH 28.9 pg (25.0-35.0); MCHC 32.1 g/dL (31.0-37.0); MCV 89.9 fL (80.0-100.0); Mean Platelet Volume 7.4; Monocytes # (A) 1.1 k/uL (0-1.0); Monocytes % (A) 6 %; Neutrophils # (A) 15.5 k/uL (1.3-7.7); Neutrophils % (A) 88 %; Platelet Count 191 k/uL (150-450); RBC 4.43 m/uL (4.30-5.90); RDW 13.4 % (11.5-15.5); WBC 17.6 k/uL (3.8-10.6)
[2019-10-17 10:16] LABS: Albumin 3.8 g/dL (3.5-5.0); Calcium 8.8 mg/dL (8.4-10.2); Magnesium 2.2 mg/dL (1.6-2.3); Potassium 4.8 mmol/L (3.5-5.1); Total Bilirubin 0.9 mg/dL (0.2-1.3); Total Protein 6.7 g/dL (6.3-8.2)
--- NOTE | 2019-10-17 10:18 | XR ---
EXAMINATION TYPE: XR chest 2V DATE OF EXAM: 10/17/2019 COMPARISON: 11/05/2017 HISTORY: Shortness of breath TECHNIQUE: Frontal and lateral views of the chest are obtained. FINDINGS: Scattered senescent parenchymal changes noted. Hyperinflation compatible with COPD. Scattered focal airspace infiltrates noted greatest about the right midlung zone. Correlate for nonsp ecific pneumonia. Heart size is stable. Mediastinal structures are stable and grossly unremarkable. No evidence for hilar prominence. Degenerative changes dorsal spine. IMPRESSION: 1. Scattered focal airspace infiltrates noted greatest about the right midlung zone. Correlate for no nspecific pneumonia.
[2019-10-17 10:23] LABS: D-Dimer 0.45 mg/L FEU (<0.60); INR 3.7 (<1.2); Partial Thromboplastin Time 42.9 sec (22.0-30.0); Prothrombin Time 36.5 sec (9.0-12.0)
[2019-10-17] MEDS ORDERED: cefTRIAXone IN SWFI 1,000 MG/10 ML SYRINGE IVP STA (10:29)
[2019-10-17] MEDS ORDERED: PNEUMONIA PROTOCOL UTILIZED 1 EACH MISC PO PRN (12:20)
[2019-10-17] MEDS ORDERED: AZITHROMYCIN 500 MG in SODIUM CHLORIDE 0.9% 250 ML IVPB STA (12:20)
[2019-10-17] MEDS: SODIUM CHLORIDE 0.9% 1,000 ML IV SCH ×2 (13:16→18:35)
--- NOTE | 2019-10-17 14:27 | P.HPIM ---
History of Present Illness H&P Date: 10/17/19 Chief Complaint: Shortness of breath/pneumonia This is a 74-year-old male patient of Dr. Grissom and Dr. Dominguez with known medical history of hypertension, hyperlipidemia and benign prostatic hypertrophy, chronic back pain, gout, osteoarthritis and borderline diabetes, chronic atrial fibrillation, pulmonary hypertension, obstructive sleep apnea , patient presented to the emergency department at [facility] today from his doctor's office due to increased shortness breath that has been going on for about 6 weeks according to him he was complaining of generalized malaise and myalgia and he was extremely short of breath he felt extremely weak to walk a fe w feet, patient was hypertensive in the office and his oxygen saturation was around 79% because of that he was referred to the emergency department at [facility] initial evaluation showed a a low blood pressure he was given a bolus of IV fluid he was started on IV antibiotic, chest x-ray showed right middle lobe pneumonia patient was placed on 6 L oxygen and the influenza AMB came back negative Covid 19 still pending at the time of dictation, patient was started on IV antibiotic he was kept on oxygen nebulized treatment he would be admitted to the hospital pulmonary consultation will be obtained from Dr. Murray. Review of Systems Constitutional: Reports fatigue, Reports malaise, Reports weakness, Denies anorexia, Denies chronic headaches, Denies chronic pain, Denies weight gain, Denies weight loss Eyes: denies blurred vision, denies bulging eye, denies decreased vision Ears: deny: decreased hearing Ears, nose, mouth and throat: Denies dysphagia, Denies neck lump, Denies swelling in throat, Denies sore throat Cardiovascular: Reports decreased exercise tolerance, Reports dyspnea on exertion, Reports lightheadedness, Reports shortness of breath, Denies chest pain, Denies rapid heart beat, Denies syncope Respiratory: Reports congestion, Reports cough, Reports cough with sputum, Reports dyspnea, Reports home oxygen, Reports pleurisy, Reports respiratory infections, Reports sleep apnea, Reports wheezing, Denies snoring Gastrointestinal: Denies abdominal pain, Denies bloating, Denies BRBPR, Denies excessive gas, Denies heartburn, Denies hematemesis, Denies melena, Denies nausea, Denies vomiting Genitourinary: Reports nocturia, Denies dysuria Musculoskeletal: Denies myalgias Musculoskeletal: absent: ankle pain, ankle stiffness, ankle swelling, elbow pain, elbow stiffness, elbow swelling, foot pain, foot stiffness, foot swelling, hand pain, hand stiffness, hand swelling, hip pain, hip stiffness, hip swelling, knee pain, knee stiffness, knee swelling, shoulder pain, shoulder stiffness, shoulder swelling, wrist pain, wrist stiffness, wrist swelling Integumentary: Denies pruritus, Denies rash Neurological: Denies numbness, Denies weakness Psychiatric: Denies anxiety, Denies depression Endocrine: Denies fatigue, Denies weight change Past Medical History Past Medical History: Atrial Fibrillation, Heart Failure, GERD/Reflux, Hyperlipidemia, Hypertension, Osteoarthritis (OA), Pneumonia, Prostate Disorder, Sleep Apnea/CPAP/BIPAP, Vascular Disorder Additional Past Medical History / Comment(s): Acute respiratory failure 2ndary to interstitial pneumonia/sepsis/CHF, chronic lower extremity edema/discoloration, venous insufficiency, CHLOE uses CPap on occasion, chronic low back pain, generalized arthritis, gout bilateral feet, 2018 MRSA infection R buttock with sepsis. History of Any Multi-Drug Resistant Organisms: MRSA Date of last positivie culture/infection: 04/08/18 MDRO Source:: buttock wound Past Surgical History: Cholecystectomy, Heart Catheterization, Joint Replacement Additional Past Surgical History / Comment(s): 02/19/17 diagnostic cardiac cath, bilateral total knee arthroplasty, ventral hernia repair, colonoscopies, I&D R buttock. Past Anesthesia/Blood Transfusion Reactions: No Reported Reaction Smoking Status: Former smoker - Past Family History Father Family Medical History: CVA/TIA Additional Family Medical History / Comment(s): Dad at age 89 from stroke. Mother Family Medical History: Dementia Additional Family Medical History / Comment(s): Mother is alive at age 90 with dementia. Sister(s) Additional Family Medical History / Comment(s): Patient has 2 sisters with no major medical problems. Patient does not have any brothers. Patient has 2 adult children with no major medical problems. Medications and Allergies Home Medications Medication Instructions Recorded Confirmed Type Allopurinol [Zyloprim] 100 mg PO HS 12/10/15 10/17/19 History Potassium Chloride [Klor-Con 10] 10 meq PO W/SUPPER 12/10/15 10/17/19 History Pravastatin Sodium [Pravachol] 20 mg PO HS 12/10/15 10/17/19 History Spironolactone [Aldactone] 25 mg PO DAILY 12/10/15 10/17/19 History Colchicine [Colcrys] 0.6 mg PO BID 09/27/16 10/17/19 History Doxazosin Mesylate [Cardura] 8 mg PO HS 09/27/16 10/17/19 History Albuterol Inhaler [Ventolin Hfa 2 puff INHALATION RT-Q4H PRN 10/17/19 10/17/19 History Inhaler] Benazepril HCl 20 mg PO DAILY 10/17/19 10/17/19 History Diltiazem Oral [Cardizem*] 30 mg PO BID 10/17/19 10/17/19 History Furosemide [Lasix] 40 mg PO BID 10/17/19 10/17/19 History Metoprolol Tartrate [Lopressor] 100 mg PO BID-W/MEALS 10/17/19 10/17/19 History Warfarin Sodium [Coumadin] 5 mg PO SUMOWETHFR 10/17/19 10/17/19 History Warfarin Sodium [Coumadin] 7.5 mg PO TUSA 10/17/19 10/17/19 History Allergies Allergy/AdvReac Type Severity Reaction Status Date / Time No Known Allergies Allergy Verified 10/17/19 10:46 Physical Exam Vitals: Vital Signs Temp Pulse Pulse Resp BP Pulse Ox 10/17/19 13:17 88 18 98/73 93 L 10/17/19 12:21 97.5 F L 87 18 100/56 94 L 10/17/19 12:04 99 20 98/55 94 L 10/17/19 11:15 97.9 F 103 H 24 92/64 93 L 10/17/19 10:25 95 24 85/58 95 10/17/19 09:59 96 10/17/19 09:58 97 10/17/19 09:57 105 H 28 H 92/60 96 10/17/19 09:50 91 85 L 10/17/19 09:47 97.8 F 102 H 22 77/43 69 L 10/17/19 09:45 80 L Intake and Output 10/16/19 10/17/19 10/17/19 22:59 06:59 14:59 Other: Weight 171.367 kg HEENT: Head is atraumatic, normocephalic, pupils were equal round reactive to light and accommodation, extraocular muscle movement were intact, mucus membran es of the mouth are dry. Neck: Supple, no JVP, decreased carotid upstroke bilaterally. Chest: Decreased breath sounds at the bases, few rhonchi, no expiratory wheezes, no chest wall tenderness, no intercostal retractions. Heart: First heart sound is depressed, second heart sound is normal, irregularly irregular, there is systolic ejection murmur 2/6 located in the left sternal border. Abdomen: Soft, nontender, nondistended, positive bowel sounds Extremities: No edema, no calf tenderness, chronic skin changes dorsalis pedis +2 bilaterally. Neurologic examination: Patient is awake alert and oriented 3, creatinine treated 12 appear grossly intact, muscle power 4 out of 5 in upper and lower extremities bilaterally. Results CBC & Chem 7: 10/17/19 08:50 10/17/19 08:50 Labs: Abnormal Lab Results - Last 24 Hours (Table) 10/17/19 10/17/19 10/17/19 Range/Units 08:50 08:50 08:50 WBC 17.6 H (3.8-10.6) k/uL Hgb 12.8 L (13.0-17.5) gm/dL Neutrophils # 15.5 H (1.3-7.7) k/uL Lymphocytes # 0.6 L (1.0-4.8) k/uL Monocytes # 1.1 H (0-1.0) k/uL PT 36.5 H (9.0-12.0) sec INR 3.7 H (<1.2) APTT 42.9 H (22.0-30.0) sec Carbon Dioxide 21 L (22-30) mmol/L BUN 61 H (9-20) mg/dL Creatinine 2.24 H (0.66-1.25) mg/dL Glucose 128 H (74-99) mg/dL Plasma Lactic Acid Virgilio (0.7-2.0) mmol/L Creatine Kinase 43 L (55-170) U/L 10/17/19 Range/Units 08:50 WBC (3.8-10.6) k/uL Hgb (13.0-17.5) gm/dL Neutrophils # (1.3-7.7) k/uL Lymphocytes # (1.0-4.8) k/uL Monocytes # (0-1.0) k/uL PT (9.0-12.0) sec INR (<1.2) APTT (22.0-30.0) sec Carbon Dioxide (22-30) mmol/L BUN (9-20) mg/dL Creatinine (0.66-1.25) mg/dL Glucose (74-99) mg/dL Plasma Lactic Acid Virgilio 2.2 H* (0.7-2.0) mmol/L Creatine Kinase (55-170) U/L Thrombosis Risk Factor Assmnt - DVT/VTE Prophylaxis DVT/VTE Prophylaxis: Pharmacologic Prophylaxis ordered, Mechanical Prophylaxis ordered - Choose All That Apply Any of the Below Risk Factors Present?: Yes Each Factor Represents 1 point: Obesity (BMI >25), Serious lung disease incl. pneumonia (< 1month) Other Risk Factors: Yes Each Risk Factor Represents 2 Points: Age 61-74 years Other congenital or acquired thrombophilia - If yes, enter type in comment: No Thrombosis Risk Factor Assessment Total Risk Factor Score: 4 Thrombosis Risk Factor Assessment Level: Moderate Risk Assessment and Plan Assessment: Assessment and plan: 1. Acute hypoxemic respiratory failure secondary to right middle lobe pneumonia possible Covid 19. Continue airborne/droplet with eye precautions. Continue patient oxygen to keep his saturation greater than or equal to 94% at all the time, continue patient on nebulized treatment DuoNeb 3 mL 4 times every day, continue IV antibiotic in the form of Zithromax 500 mg IV piggyback every 24 hours and Rocephin 1 g IV piggyback every 24 hours, we will monitor the patient very closely. 2. Right middle lobe pneumonia. Continue treatment as in paragraph #1. 3. Chronic atrial fibrillation. Continue Cardizem 30 mg 3 times daily, Lopressor 100 mg twice daily and Coumadin at home dosing. Continue to monitor INR. 4. Secondary moderate pulmonary hypertension with systolic pressure of 48 secondary to obstructive sleep apnea, unable to tolerate CPAP . 5. Hypertension. Continue Lopressor 100 mg orally twice every day hold for systolic blood pressure less than 110 and her heart rate less than 50. 6. Chronic heart failure. Continue Lasix 40 mg PO every 12 hours and Aldactone 25 mg daily. 7. Benign prostatic hypertrophy. Continue Cardura 8 mg orally once every day. 8. Hyperlipidemia. Continue Pravachol 40 mg orally bedtime. 9. Gout unspecified. Continue colchicine and allopurinol. 10. Chronic low back pain and generalized osteoarthritis, stable. 11. DVT prophylaxis. Patient is on Coumadin we will continue to monitor INR and daily basis. 12. Gastrointestinal prophylaxis. Protonix 40 mg orally once every day. 13. Admit to inpatient. Estimate a length of stay 2 midnights. 14. Patient is full code.
[2019-10-17] MEDS: ALBUTEROL INHALER 60 PUFF/8 GM INHALER (BULK) INHALATION SCH ×2 (15:46→19:35)
[2019-10-17] MEDS ORDERED: IPRATROPIUM-ALBUTEROL 3 ML NEB INHALATION SCH (16:00)
[2019-10-17] MEDS: METOPROLOL TARTRATE 50 MG TAB PO SCH (17:36)
[2019-10-17] MEDS: POTASSIUM CHLORIDE ER 10 MEQ TAB.ER.PRT PO SCH (17:37)
[2019-10-17] MEDS: COLCHICINE 0.6 MG EACH PO SCH (20:16)
[2019-10-17] MEDS: FUROSEMIDE 40 MG TAB PO SCH (20:16)
[2019-10-17] MEDS: ALLOPURINOL 100 MG TAB PO SCH (20:16)
[2019-10-17] MEDS: DILTIAZEM ORAL 30 MG TAB PO SCH (20:16)
[2019-10-17] MEDS: PRAVASTATIN SODIUM 20 MG TAB PO SCH (20:16)
[2019-10-17] MEDS ORDERED: DOXAZOSIN 4 MG TAB PO SCH (21:00)
[2019-10-18 06:35] LABS: INR 4.4 (<1.2); Prothrombin Time 43.7 sec (9.0-12.0)
[2019-10-18] MEDS: METOPROLOL TARTRATE 50 MG TAB PO SCH ×2 (06:43→16:27)
[2019-10-18] MEDS: ALBUTEROL INHALER 60 PUFF/8 GM INHALER (BULK) INHALATION SCH ×4 (07:55→19:35)
--- NOTE | 2019-10-18 08:01 | XR ---
EXAMINATION TYPE: XR chest 1V portable DATE OF EXAM: 10/18/2019 COMPARISON: 10/17/2019 INDICATION: Pneumonia TECHNIQUE: Single frontal view of the chest is obtained. FINDINGS: The heart size is enlarged. The pulmonary vasculature is prominent. There is diffuse increased lung markings. Correlate for congestive heart failure. Infectious etiologi es are not excluded. IMPRESSION: 1. Cardiomegaly with prominent pulmonary vascular markings and increased lung markings suggestive for congestive heart failure. Clinical correlation recommended.
[2019-10-18] MEDS: LISINOPRIL 20 MG TAB PO SCH (08:36)
[2019-10-18] MEDS: SPIRONOLACTONE 25 MG TAB PO SCH (08:36)
[2019-10-18] MEDS: COLCHICINE 0.6 MG EACH PO SCH ×2 (08:37→20:06)
[2019-10-18] MEDS: AZITHROMYCIN 500 MG TAB PO SCH (08:37)
[2019-10-18] MEDS: FUROSEMIDE 40 MG TAB PO SCH ×2 (08:37→20:06)
[2019-10-18] MEDS: SODIUM CHLORIDE 0.9% 1,000 ML IV SCH ×3 (08:37→23:17)
[2019-10-18] MEDS: DILTIAZEM ORAL 30 MG TAB PO SCH ×2 (08:37→20:06)
[2019-10-18 09:13] VITALS: BMI 49.8
--- NOTE | 2019-10-18 13:34 | P.PN ---
Subjective Progress Note Date: 10/18/19 This is a 74-year-old male patient of Dr. Grissom and Dr. Dominguez with known medical history of hypertension, hyperlipidemia and benign prostatic hypertrophy, chronic back pain, gout, osteoarthritis and borderline diabetes, chronic atrial fibrillation, pulmonary hypertension, obstructive sleep apnea , patient presented to the emergency department at [facility] today from his doctor's office due to increased shortness breath that has been going on for about 6 weeks according to him he was complaining of generalized malaise and myalgia and he was extremely short of breath he felt extremely weak to walk a few feet, patient was hypertensive in the office and his oxygen saturation was a round 79% because of that he was referred to the emergency department at [facility] initial evaluation showed a a low blood pressure he was given a bolus of IV fluid he was started on IV antibiotic, chest x-ray showed right middle lobe pneumonia patient was placed on 6 L oxygen and the influenza AMB came back negative Covid 19 still pending at the time of dictation, patient was started on IV antibiotic he was kept on oxygen nebulized treatment he would be admitted to the hospital pulmonary consultation will be obtained from Dr. Murray. 10/17: Patient remains in droplet isolation as COVID-19 test is pending. Patient was afebrile, heart rate 85, blood pressure 98/68, pulse ox 92% on 4 L nasal cannula. INR is 4.4. Pharmacy is dosing Coumadin. Repeat lactic acid yesterday afternoon was 1.3. Blood cultures no growth at 24 hours. Repeat chest x-ray this morning reveals cardiomegaly with prominent pulmonary vascular markings and increased lung markings just of congestive heart failure. Patient states that he is breathing easier today. He does have some sputum production. He denies any nausea vomiting. He did have soft stool today. Dr. Murray is on consult. Objective - Vital Signs Vital signs: Vital Signs Temp 97.7 F 10/18/19 08:30 Pulse 85 10/18/19 08:30 Resp 18 10/18/19 08:30 BP 98/68 10/18/19 08:30 Pulse Ox 92 L 10/18/19 08:30 Intake & Output 10/17/19 10/18/19 10/18/19 18:59 06:59 18:59 Intake Total 1600 240 Balance 1600 240 Weight 171.367 kg 162 kg 162 kg Intake: Intake, IV Titration 1600 Amount Sodium Chloride 0.9% 1, 1600 000 ml @ 100 mls/hr IV . Q[facility]H [facility] Rx#:[id number] Oral 240 Other: Voiding Method Urinal Urinal Urinal # Voids 1 # Bowel Movements 1 - Exam Review of Systems Constitutional: Reports fatigue, Reports malaise, Reports weakness, Denies anorexia, Denies chronic headaches, Denies chronic pain, Denies weight gain, Denies weight loss Eyes: denies blurred vision, denies bulging eye, denies decreased vision Ears: deny: decreased hearing Ears, nose, mouth and throat: Denies dysphagia, Denies neck lump, Denies swelling in throat, Denies sore throat Cardiovascular: Reports decreased exercise tolerance, Reports dyspnea on exertion, Reports lightheadedness, Reports shortness of breath, Denies chest pain, Denies rapid heart beat, Denies syncope Respiratory: Reports congestion, Reports cough, Reports cough with sputum, Reports dyspnea-improving, Reports home oxygen, Reports pleurisy, Reports respiratory infections, Reports sleep apnea, Reports wheezing, Denies snoring Gastrointestinal: Denies abdominal pain, Denies bloating, Denies BRBPR, Denies excessive gas, Denies heartburn, Denies hematemesis, Denies melena, Denies nausea, Denies vomiting Genitourinary: Reports nocturia, Denies dysuria Musculoskeletal: Denies myalgias Musculoskeletal: absent: ankle pain, ankle stiffness, ankle swelling, elbow pain, elbow stiffness, elbow swelling, foot pain, foot stiffness, foot swelling, hand pain, hand stiffness, hand swelling, hip pain, hip stiffness, hip swelling, knee pain, knee stiffness, knee swelling, shoulder pain, shoulder stiffness, shoulder swelling, wrist pain, wrist stiffness, wrist swelling Integumentary: Denies pruritus, Denies rash Neurological: Denies numbness, Denies weakness Psychiatric: Denies anxiety, Denies depression Endocrine: Denies fatigue, Denies weight change Physical examination GEN: This is a 74-year-old morbidly obese male. He is resting in a recliner and appears to be comfortable and in no acute distress. No respiratory distress noted. HEENT: Head is atraumatic, normocephalic, pupils were equal round reactive to light and accommodation, extraocular muscle movement were intact, mucus me mbranes of the mouth are dry. Neck: Supple, no JVP, decreased carotid upstroke bilaterally. Chest: Decreased breath sounds at the bases, few rhonchi, no expiratory wheezes, no chest wall tenderness, no intercostal retractions. Heart: First heart sound is depressed, second heart sound is normal, irregularly irregular, there is systolic ejection murmur 2/6 located in the left sternal border. Abdomen: Soft, nontender, nondistended, positive bowel sounds Extremities: No edema, no calf tenderness, chronic skin changes dorsalis pedis +2 bilaterally. Neurologic examination: Patient is awake alert and oriented 3, creatinine treated 12 appear grossly intact, muscle power 4 out of 5 in upper and lower extremities bilaterally. - Labs CBC & Chem 7: 10/17/19 08:50 10/17/19 08:50 Labs: Abnormal Lab Results - Last 24 Hours (Table) 10/17/19 10/17/19 10/17/19 Range/Units 08:50 08:50 08:50 WBC 17.6 H (3.8-10.6) k/uL Hgb 12.8 L (13.0-17.5) gm/dL Neutrophils # 15.5 H (1.3-7.7) k/uL Lymphocytes # 0.6 L (1.0-4.8) k/uL Monocytes # 1.1 H (0-1.0) k/uL PT 36.5 H (9.0-12.0) sec INR 3.7 H (<1.2) APTT 42.9 H (22.0-30.0) sec Carbon Dioxide 21 L (22-30) mmol/L BUN 61 H (9-20) mg/dL Creatinine 2.24 H (0.66-1.25) mg/dL Glucose 128 H (74-99) mg/dL Plasma Lactic Acid Virgilio (0.7-2.0) mmol/L Creatine Kinase 43 L (55-170) U/L 10/17/19 10/18/19 Range/Units 08:50 05:51 WBC (3.8-10.6) k/uL Hgb (13.0-17.5) gm/dL Neutrophils # (1.3-7.7) k/uL Lymphocytes # (1.0-4.8) k/uL Monocytes # (0-1.0) k/uL PT 43.7 H (9.0-12.0) sec INR 4.4 H (<1.2) APTT (22.0-30.0) sec Carbon Dioxide (22-30) mmol/L BUN (9-20) mg/dL Creatinine (0.66-1.25) mg/dL Glucose (74-99) mg/dL Plasma Lactic Acid Virgilio 2.2 H* (0.7-2.0) mmol/L Creatine Kinase (55-170) U/L Assessment and Plan Plan: 1. Acute hypoxemic respiratory failure secondary to right middle lobe pneumonia possible Covid 19. Continue airborne/droplet with eye precautions. Continue patient oxygen to keep his saturation greater than or equal to 94% at all the time, continue patient on nebulized treatment DuoNeb 3 mL 4 times every day, continue IV antibiotic in the form of Zithromax 500 mg IV piggyback every 24 hours and Rocephin 1 g IV piggyback every 24 hours, we will monitor the patient very closely. 2. Right middle lobe pneumonia. Continue treatment as in paragraph #1. 3. Chronic atrial fibrillation. Continue Cardizem 30 mg 3 times daily, Lo pressor 100 mg twice daily and Coumadin at home dosing. Continue to monitor INR. Coumadin is being dosed by pharmacy. 4. Secondary moderate pulmonary hypertension with systolic pressure of 48 seco ndary to obstructive sleep apnea, unable to tolerate CPAP . 5. Hypertension. Continue Lopressor 100 mg orally twice every day hold for systolic blood pressure less than 110 and her heart rate less than 50. 6. Chronic heart failure. Continue Lasix 40 mg PO every 12 hours and Aldactone 25 mg daily. 7. Benign prostatic hypertrophy. Continue Cardura 8 mg orally once every day. 8. Hyperlipidemia. Continue Pravachol 40 mg orally bedtime. 9. Gout unspecified. Continue colchicine and allopurinol. 10. Chronic low back pain and generalized osteoarthritis, stable. 11. DVT prophylaxis. Patient is on Coumadin we will continue to monitor INR and daily basis. 12. Gastrointestinal prophylaxis. Protonix 40 mg orally once every day. 13. Admit to inpatient. Estimate a length of stay 2 midnights. 14. Patient is full code. Discharge plan: Return home. Impression and plan of care have been directed as dictated by the signing physician. Linda Maloney nurse practitioner acting as scribe for signing physician.
[2019-10-18] MEDS: POTASSIUM CHLORIDE ER 10 MEQ TAB.ER.PRT PO SCH (16:27)
[2019-10-18] MEDS: PRAVASTATIN SODIUM 20 MG TAB PO SCH (20:06)
[2019-10-18] MEDS: ALLOPURINOL 100 MG TAB PO SCH (20:06)
[2019-10-19] MEDS: METOPROLOL TARTRATE 50 MG TAB PO SCH ×2 (06:02→17:29)
[2019-10-19 06:38] LABS: HCT 37.6 % (39.0-53.0); HGB 11.6 gm/dL (13.0-17.5); Hypochromasia Slight; MCH 28.6 pg (25.0-35.0); MCHC 30.7 g/dL (31.0-37.0); MCV 93.1 fL (80.0-100.0); Mean Platelet Volume 7.2; Platelet Count 218 k/uL (150-450); RBC 4.04 m/uL (4.30-5.90); RDW 13.7 % (11.5-15.5); WBC 7.5 k/uL (3.8-10.6)
[2019-10-19 07:09] LABS: INR 3.7 (<1.2); Prothrombin Time 36.4 sec (9.0-12.0)
[2019-10-19 07:25] LABS: Calcium 8.7 mg/dL (8.4-10.2); Potassium 4.5 mmol/L (3.5-5.1)
[2019-10-19] MEDS: ALBUTEROL INHALER 60 PUFF/8 GM INHALER (BULK) INHALATION SCH ×4 (08:12→20:52)
[2019-10-19] MEDS: SODIUM CHLORIDE 0.9% 1,000 ML IV SCH (08:52)
[2019-10-19] MEDS: COLCHICINE 0.6 MG EACH PO SCH ×2 (08:52→20:52)
[2019-10-19] MEDS: SPIRONOLACTONE 25 MG TAB PO SCH (08:53)
[2019-10-19] MEDS: FUROSEMIDE 40 MG TAB PO SCH ×2 (08:53→20:52)
[2019-10-19] MEDS: LISINOPRIL 20 MG TAB PO SCH (08:53)
[2019-10-19] MEDS: DILTIAZEM ORAL 30 MG TAB PO SCH ×2 (08:53→20:52)
[2019-10-19] MEDS: AZITHROMYCIN 500 MG TAB PO SCH (12:34)
--- NOTE | 2019-10-19 14:08 | P.PN ---
Subjective Progress Note Date: 10/19/19 This is a 74-year-old male patient of Dr. Grissom and Dr. Dominguez with known medical history of hypertension, hyperlipidemia and benign prostatic hypertrophy, chronic back pain, gout, osteoarthritis and borderline diabetes, chronic atrial fibrillation, pulmonary hypertension, obstructive sleep apnea , patient presented to the emergency department at [facility] today from his doctor's office due to increased shortness breath that has been going on for about 6 weeks according to him he was complaining of generalized malaise and myalgia and he was extremely short of breath he felt extremely weak to walk a few feet, patient was hypertensive in the office and his oxygen saturation was a round 79% because of that he was referred to the emergency department at [facility] initial evaluation showed a a low blood pressure he was given a bolus of IV fluid he was started on IV antibiotic, chest x-ray showed right middle lobe pneumonia patient was placed on 6 L oxygen and the influenza AMB came back negative Covid 19 still pending at the time of dictation, patient was started on IV antibiotic he was kept on oxygen nebulized treatment he would be admitted to the hospital pulmonary consultation will be obtained from Dr. Murray. 10/17: Patient remains in droplet isolation as COVID-19 test is pending. Patient was afebrile, heart rate 85, blood pressure 98/68, pulse ox 92% on 4 L nasal cannula. INR is 4.4. Pharmacy is dosing Coumadin. Repeat lactic acid yesterday afternoon was 1.3. Blood cultures no growth at 24 hours. Repeat chest x-ray this morning reveals cardiomegaly with prominent pulmonary vascular markings and increased lung markings just of congestive heart failure. Patient states that he is breathing easier today. He does have some sputum production. He denies any nausea vomiting. He did have soft stool today. Dr. Murray is on consult. 10/18: COVID-19 report is pending. Patient has been afebrile, heart rate 88, blood pressure 103/63, pulse ox 95% on 3 L nasal cannula. INR 3.7, BUN 34 and creatinine 1.27. Hemoglobin 11.6. Sputum culture is in progress. Blood culture no growth at 48 hours. Patient continues to have cough with sputum production. He denies having any fever or chills. He did have a normal bowel movement today. Dr. Murray is also on consult. Objective - Vital Signs Vital signs: Vital Signs Temp 97.6 F 10/19/19 08:50 Pulse 88 10/19/19 08:50 Resp 18 10/19/19 08:50 BP 103/63 10/19/19 08:50 Pulse Ox 95 10/19/19 08:50 Intake & Output 10/18/19 10/19/19 10/19/19 18:59 06:59 18:59 Intake Total 2076 1899 480 Balance 2076 1899 480 Weight 162 kg Intake: Intake, IV Titration 1600 Amount Sodium Chloride 0.9% 1, 800 000 ml @ 100 mls/hr IV . Q10H ROGER Rx#:[id number] cefTRIAXone 1 gm In 800 Sodium Chloride 0.9% 50 ml @ 100 mls/hr IVPB Q24HR ROGER Rx#:[id number] Oral 2076 300 480 Other: Voiding Method Urinal Urinal # Voids 2 2 # Bowel Movements 1 - Exam Review of Systems Constitutional: Reports fatigue, Reports malaise, Reports weakness, Denies anorexia, Denies chronic headaches, Denies chronic pain, Denies weight gain, Denies weight loss Eyes: denies blurred vision, denies bulging eye, denies decreased vision Ears, nose, mouth and throat: Denies dysphagia, Denies neck lump, Denies swelling in throat, Denies sore throat Cardiovascular: Reports decreased exercise tolerance, Reports dyspnea on exertion, Reports lightheadedness, Reports shortness of breath, Denies chest pain, Denies rapid heart beat, Denies syncope Respiratory: Reports congestion, Reports cough, Reports cough with sputum, Reports dyspnea-improving, Reports home oxygen, Reports pleurisy, Reports respiratory infections, Reports sleep apnea, Reports wheezing, Denies snoring Gastrointestinal: Denies abdominal pain, Denies bloating, Denies BRBPR, Denies excessive gas, Denies heartburn, Denies hematemesis, Denies melena, Denies nausea, Denies vomiting Genitourinary: Reports nocturia, Denies dysuria Musculoskeletal: Denies myalgias Musculoskeletal: absent: ankle pain, ankle stiffness, ankle swelling, elbow pain, elbow stiffness, elbow swelling, foot pain, foot stiffness, foot swelling, hand pain, hand stiffness, hand swelling, hip pain, hip stiffness, hip swelling, knee pain, knee stiffness, knee swelling, shoulder pain, shoulder stiffness, shoulder swelling, wrist pain, wrist stiffness, wrist swelling Integumentary: Denies pruritus, Denies rash Neurological: Denies numbness, Denies weakness Psychiatric: Denies anxiety, Denies depression Endocrine: Denies fatigue, Denies weight change Physical examination GEN: This is a 74-year-old morbidly obese male. He is resting in a recliner and appears to be comfortable and in no acute distress. No respiratory distress noted. HEENT: Head is atraumatic, normocephalic, pupils were equal round reactive to light and accommodation, extraocular muscle movement were intact, mucus membranes of the mouth are dry. No lesions noted, no thrush. Neck: Supple, no JVP, decreased carotid upstroke bilaterally. Chest: Decreased breath sounds at the bases, few rhonchi, no expiratory wheezes, no chest wall tenderness, no intercostal retractions. Heart: First heart sound is depressed, second heart sound is normal, irregularly irregular, there is systolic ejection murmur 2/6 located in the left sternal border. Abdomen: Soft, nontender, nondistended, positive bowel sounds Extremities: No edema, no calf tenderness, chronic skin changes dorsalis pedis +2 bilaterally. Neurologic examination: Patient is awake alert and oriented 3, creatinine treated 12 appear grossly intact, muscle power 4 out of 5 in upper and lower extremities bilaterally. - Labs CBC & Chem 7: 10/19/19 05:57 10/19/19 05:57 Labs: Abnormal Lab Results - Last 24 Hours (Table) 10/19/19 10/19/19 10/19/19 Range/Units 05:57 05:57 05:57 RBC 4.04 L (4.30-5.90) m/uL Hgb 11.6 L (13.0-17.5) gm/dL Hct 37.6 L (39.0-53.0) % MCHC 30.7 L (31.0-37.0) g/dL PT 36.4 H (9.0-12.0) sec INR 3.7 H (<1.2) Chloride 111 H (98-107) mmol/L BUN 34 H (9-20) mg/dL Creatinine 1.27 H (0.66-1.25) mg/dL Glucose 112 H (74-99) mg/dL Microbiology - Last 24 Hours (Table) 10/18/19 13:20 Gram Stain - Preliminary Sputum Sputum Culture - Preliminary 10/17/19 10:02 Blood Culture - Preliminary Blood No Growth after 24 hours Assessment and Plan Plan: 1. Acute hypoxemic respiratory failure secondary to right middle lobe pneumonia possible Covid 19. Continue airborne/droplet with eye precautions. Continue patient oxygen to keep his saturation greater than or equal to 94% at all the time, continue patient on nebulized treatment DuoNeb 3 mL 4 times every day, continue IV antibiotic in the form of Zithromax 500 mg IV oral every 24 hours and Rocephin 1 g IV piggyback every 24 hours. 2. Right middle lobe pneumonia. Continue treatment as in paragraph #1. 3. Chronic atrial fibrillation. Continue Cardizem 30 mg 3 times daily, Lopressor 100 mg twice daily and Coumadin at home dosing. Continue to monitor INR. Coumadin is being dosed by pharmacy. 4. Secondary moderate pulmonary hypertension with systolic pressure of 48 secondary to obstructive sleep apnea, unable to tolerate CPAP . 5. Hypertension. Continue Lopressor 100 mg orally twice every day hold for systolic blood pressure less than 110 and her heart rate less than 50. 6. Chronic heart failure. Continue Lasix 40 mg PO every 12 hours and Aldactone 25 mg daily. 7. Benign prostatic hypertrophy. Continue Cardura 8 mg orally once every day. 8. Hyperlipidemia. Continue Pravachol 40 mg orally bedtime. 9. Gout unspecified. Continue colchicine and allopurinol. 10. Chronic low back pain and generalized osteoarthritis, stable. 11. DVT prophylaxis. Patient is on Coumadin we will continue to monitor INR and daily basis. 12. Gastrointestinal prophylaxis. Protonix 40 mg orally once every day. Patient is full code. Discharge plan: Return home. Impression and plan of care have been directed as dictated by the signing p kanu. Linda Maloney nurse practitioner acting as scribe for signing physician.
[2019-10-19] MEDS: POTASSIUM CHLORIDE ER 10 MEQ TAB.ER.PRT PO SCH (17:29)
[2019-10-19] MEDS ORDERED: WARFARIN 0.5 MG TAB PO ONE (18:00)
[2019-10-19] MEDS: ALLOPURINOL 100 MG TAB PO SCH (20:52)
[2019-10-19] MEDS: PRAVASTATIN SODIUM 20 MG TAB PO SCH (20:52)
[2019-10-20] MEDS: SODIUM CHLORIDE 0.9% 1,000 ML IV SCH ×3 (06:10→20:28)
[2019-10-20 07:25] LABS: Basophils % (A) 1 %; Eosinophils # (A) 0.3 k/uL (0-0.7); Eosinophils % (A) 4 %; HCT 40.7 % (39.0-53.0); HGB 12.6 gm/dL (13.0-17.5); Lymphocytes # (A) 1.1 k/uL (1.0-4.8); Lymphocytes % (A) 14 %; MCH 28.4 pg (25.0-35.0); MCV 91.6 fL (80.0-100.0); Mean Platelet Volume 6.7; Monocytes # (A) 0.6 k/uL (0-1.0); Monocytes % (A) 8 %; Neutrophils # (A) 5.7 k/uL (1.3-7.7); Neutrophils % (A) 71 %; Platelet Count 218 k/uL (150-450); RBC 4.45 m/uL (4.30-5.90); RDW 13.4 % (11.5-15.5)
[2019-10-20] MEDS: ALBUTEROL INHALER 60 PUFF/8 GM INHALER (BULK) INHALATION SCH ×4 (07:28→20:28)
[2019-10-20 07:38] LABS: Albumin 3.6 g/dL (3.5-5.0); Calcium 9.2 mg/dL (8.4-10.2); Potassium 4.5 mmol/L (3.5-5.1); Total Bilirubin 0.5 mg/dL (0.2-1.3); Total Protein 6.6 g/dL (6.3-8.2)
[2019-10-20 07:41] LABS: INR 2.7 (<1.2); Prothrombin Time 26.5 sec (9.0-12.0)
--- NOTE | 2019-10-20 10:04 | P.CNPUL ---
History of Present Illness Reason for consult: dyspnea, cough, COPD, hypoxemia, obstructive sleep apnea Chief complaint: Shortness of breath and cough History of present illness: This is a 74-year-old male admitted with increasing shortness of breath for 6 week also has generalized aches and pains, patient was hypoxic seen in the medical office with oxygen saturation just 79% initial x-ray suggestive of right middle lobe pneumonia influenza negative, covid 19 is pending, past medical history of hypertension, hyperlipidemia and benign prostatic hypertrophy, chronic back pain, gout, osteoarthritis and borderline diabetes, chronic atrial fibrillation, pulmonary hypertension, obstructive sleep apnea Repeat chest x-ray yesterday shows some resolution infiltrate CHF-like Petrin, patient has still cough purulent sputum production however the amount have improved now fever chills and myalgias improve saturation is stable, elevated INR has been in therapeutic range is now significantly improved saturation, patient is currently treated with bronchodilators along with IV antibiotics and maximal medical therapy Coumadin is being restarted Review of Systems All systems: negative Past Medical History Past Medical History: Atrial Fibrillation, Heart Failure, GERD/Reflux, Hyperlipidemia, Hypertension, Osteoarthritis (OA), Pneumonia, Prostate Disorder, Sleep Apnea/CPAP/BIPAP, Vascular Disorder Additional Past Medical History / Comment(s): Acute respiratory failure 2ndary to interstitial pneumonia/sepsis/CHF, chronic lower extremity edema/discoloration, venous insufficiency, CHLOE uses CPap on occasion, chronic low back pain, generalized arthritis, gout bilateral feet, 2018 MRSA infection R buttock with sepsis. History of Any Multi-Drug Resistant Organisms: MRSA Date of last positivie culture/infection: 04/08/18 MDRO Source:: buttock wound Past Surgical History: Cholecystectomy, Heart Catheterization, Joint Replacement Additional Past Surgical History / Comment(s): 02/19/17 diagnostic cardiac cath, bilateral total knee arthroplasty, ventral hernia repair, colonoscopies, I&D R buttock. Past Anesthesia/Blood Transfusion Reactions: No Reported Reaction Smoking Status: Former smoker - Past Family History Father Family Medical History: CVA/TIA Additional Family Medical History / Comment(s): Dad at age 89 from stroke. Mother Family Medical History: Dementia Additional Family Medical History / Comment(s): Mother is alive at age 90 with dementia. Sister(s) Additional Family Medical History / Comment(s): Patient has 2 sisters with no major medical problems. Patient does not have any brothers. Patient has 2 adult children with no major medical problems. Medications and Allergies Home Medications Medication Instructions Recorded Confirmed Type Allopurinol [Zyloprim] 100 mg PO HS 12/10/15 10/17/19 History Potassium Chloride [Klor-Con 10] 10 meq PO W/SUPPER 12/10/15 10/17/19 History Pravastatin Sodium [Pravachol] 20 mg PO HS 12/10/15 10/17/19 History Spironolactone [Aldactone] 25 mg PO DAILY 12/10/15 10/17/19 History Colchicine [Colcrys] 0.6 mg PO BID 09/27/16 10/17/19 History Doxazosin Mesylate [Cardura] 8 mg PO HS 09/27/16 10/17/19 History Albuterol Inhaler (Bulk) [Ventolin 2 puff INHALATION RT-Q4H PRN 10/17/19 10/17/19 History Hfa Inhaler] Benazepril HCl 20 mg PO DAILY 10/17/19 10/17/19 History Diltiazem Oral [Cardizem*] 30 mg PO BID 10/17/19 10/17/19 History Furosemide [Lasix] 40 mg PO BID 10/17/19 10/17/19 History Metoprolol Tartrate [Lopressor] 100 mg PO BID-W/MEALS 10/17/19 10/17/19 History Warfarin Sodium [Coumadin] 5 mg PO SUMOWETHFR 10/17/19 10/17/19 History Warfarin Sodium [Coumadin] 7.5 mg PO TUSA 10/17/19 10/17/19 History Allergies Allergy/AdvReac Type Severity Reaction Status Date / Time No Known Allergies Allergy Verified 10/17/19 10:46 Physical Exam Vitals: Vital Signs Temp Pulse Pulse Resp BP Pulse Ox 10/20/19 04:00 97 F L 98 101 H 20 110/71 95 10/20/19 00:00 92 20 10/19/19 20:00 96.8 F L 92 20 106/63 94 L 10/19/19 16:10 18 10/19/19 16:08 98 F 93 18 114/71 97 10/19/19 15:57 95 10/19/19 11:40 98 16 105/69 94 L Intake and Output 10/19/19 10/20/1910/19/20 22:59 06:59 14:59 Other: Voiding Method Urinal Urinal # Voids 3 2 Weight 160.3 kg - Constitutional General appearance: disheveled, mild distress, morbidly obese - EENT Eyes: EOMI, PERRLA, poor dentition ENT: normal oropharynx Ears: bilateral: normal - Neck Neck: normal ROM Carotids: bilateral: upstroke normal - Respiratory Respiratory: bilateral: CTA, diminished, negative: dullness, rales, rhonchi, wheezing, prolonged expiration, prolonged inspiration - Cardiovascular Rhythm: regular Heart sounds: normal: S1, S2 - Gastrointestinal General gastrointestinal: decreased bowel sounds, distended, soft - Integumentary Integumentary: normal turgor - Neurologic Neurologic: CNII-XII intact - Musculoskeletal Musculoskeletal: gait normal, generalized weakness, strength equal bilaterally - Psychiatric Psychiatric: A&O x's 3, appropriate affect, intact judgment & insight Results - Laboratory Findings CBC and BMP: 10/20/19 06:49 10/20/19 06:49 PT/INR, D-dimer PT 26.5 sec (9.0-12.0) H 10/20/19 06:49 INR 2.7 (<1.2) H 10/20/19 06:49 D-Dimer 0.45 mg/L FEU (<0.60) 10/17/19 08:50 Abnormal lab findings: Abnormal Labs 10/17/19 10/17/19 10/17/19 08:50 08:50 08:50 WBC 17.6 H RBC Hgb 12.8 L Hct MCHC Neutrophils # 15.5 H Lymphocytes # 0.6 L Monocytes # 1.1 H PT 36.5 H INR 3.7 H APTT 42.9 H Chloride Carbon Dioxide 21 L BUN 61 H Creatinine 2.24 H Glucose 128 H Plasma Lactic Acid Virgilio Creatine Kinase 43 L 10/17/19 10/18/19 10/19/19 08:50 05:51 05:57 WBC RBC Hgb Hct MCHC Neutrophils # Lymphocytes # Monocytes # PT 43.7 H 36.4 H INR 4.4 H 3.7 H APTT Chloride Carbon Dioxide BUN Creatinine Glucose Plasma Lactic Acid Virgilio 2.2 H* Creatine Kinase 10/19/19 10/19/19 10/20/19 05:57 05:57 06:49 WBC RBC 4.04 L Hgb 11.6 L Hct 37.6 L MCHC 30.7 L Neutrophils # Lymphocytes # Monocytes # PT 26.5 H INR 2.7 H APTT Chloride 111 H Carbon Dioxide BUN 34 H Creatinine 1.27 H Glucose 112 H Plasma Lactic Acid Virgilio Creatine Kinase 10/20/19 10/20/19 06:49 06:49 WBC RBC Hgb 12.6 L Hct MCHC Neutrophils # Lymphocytes # Monocytes # PT INR APTT Chloride 109 H Carbon Dioxide BUN 27 H Creatinine Glucose Plasma Lactic Acid Virgilio Creatine Kinase - Diagnostic Findings Chest x-ray: report reviewed, image reviewed (Initial admitting checks x-ray sister over right midlung field infiltrate, repeat x-ray shows some resolution however suggestive of CHF-like changes and prominent interstitium likely suggestive of fluid overload) Assessment and Plan Assessment: Right-sided pneumonia involving the right midlung field likely community acquired Acute hypoxic respiratory failure Acute exacerbation of CHF likely acute on chronic diastolic heart failure contributing above Hypertension hypertensive cardiovascular disease Lastly less likely to be coronavirus infection however test results are pending Plan: Optimize medical therapy from cardiovascular standpoint Continue antibiotics breathing treatments I see no role of steroids Increase activity as tolerated Recommend discharge planning in 24-48 hours on oral antibiotics to finish 7-10 day therapy Patient will likely need further evaluation for sleep disorder breathing and sleep apnea as outpatient Time with Patient: Greater than 30
[2019-10-20] MEDS: LISINOPRIL 20 MG TAB PO SCH (10:21)
[2019-10-20] MEDS: SPIRONOLACTONE 25 MG TAB PO SCH (10:21)
[2019-10-20] MEDS: FUROSEMIDE 40 MG TAB PO SCH ×2 (10:21→20:28)
[2019-10-20] MEDS: DILTIAZEM ORAL 30 MG TAB PO SCH ×2 (10:21→20:28)
[2019-10-20] MEDS: AZITHROMYCIN 500 MG TAB PO SCH (10:21)
[2019-10-20] MEDS: COLCHICINE 0.6 MG EACH PO SCH ×2 (10:21→20:28)
--- NOTE | 2019-10-20 11:52 | P.PN ---
Subjective Progress Note Date: 10/20/19 This is a 74-year-old male patient of Dr. Grissom and Dr. Dominguez with known medical history of hypertension, hyperlipidemia and benign prostatic hypertrophy, chronic back pain, gout, osteoarthritis and borderline diabetes, chronic atrial fibrillation, pulmonary hypertension, obstructive sleep apnea , patient presented to the emergency department at [facility] today from his doctor's office due to increased shortness breath that has been going on for about 6 weeks according to him he was complaining of generalized malaise and myalgia and he was extremely short of breath he felt extremely weak to walk a few feet, patient was hypertensive in the office and his oxygen saturation was a round 79% because of that he was referred to the emergency department at [facility] initial evaluation showed a a low blood pressure he was given a bolus of IV fluid he was started on IV antibiotic, chest x-ray showed right middle lobe pneumonia patient was placed on 6 L oxygen and the influenza AMB came back negative Covid 19 still pending at the time of dictation, patient was started on IV antibiotic he was kept on oxygen nebulized treatment he would be admitted to the hospital pulmonary consultation will be obtained from Dr. Murray. 10/17: Patient remains in droplet isolation as COVID-19 test is pending. Patient was afebrile, heart rate 85, blood pressure 98/68, pulse ox 92% on 4 L nasal cannula. INR is 4.4. Pharmacy is dosing Coumadin. Repeat lactic acid yesterday afternoon was 1.3. Blood cultures no growth at 24 hours. Repeat chest x-ray this morning reveals cardiomegaly with prominent pulmonary vascular markings and increased lung markings just of congestive heart failure. Patient states that he is breathing easier today. He does have some sputum production. He denies any nausea vomiting. He did have soft stool today. Dr. Murray is on consult. 10/18: COVID-19 report is pending. Patient has been afebrile, heart rate 88, blood pressure 103/63, pulse ox 95% on 3 L nasal cannula. INR 3.7, BUN 34 and creatinine 1.27. Hemoglobin 11.6. Sputum culture is in progress. Blood culture no growth at 48 hours. Patient continues to have cough with sputum production. He denies having any fever or chills. He did have a normal bowel movement today. Dr. Murray is also on consult. 10/19: Patient has been afebrile, heart rate 101, blood pressure 110/71, pulse ox 95% on room air. Repeat blood work reveals normal white count of 8, hemoglobin 12.6, platelet count 218. INR 2.7. Sodium 143, potassium 4.5, chloride 109, CO2 26, BUN 27, creatinine 1.2, liver function tests normal. Sputum culture has been obtained and is in process. Blood culture no growth at 48 hours. Patient has been evaluated by Dr. Murray with plans to continue continue antibiotics, no steroids at this point. Possible discharge 624-48 hours and complete course of 7-10 days of antibiotics. Objective - Vital Signs Vital signs: Vital Signs Temp 97 F L 10/20/19 04:00 Pulse 98 10/20/19 04:00 Resp 20 10/20/19 04:00 BP 110/71 10/20/19 04:00 Pulse Ox 95 10/20/19 04:00 Intake & Output 10/19/19 10/20/19 10/20/19 18:59 06:59 18:59 Intake Total 480 420 Balance 480 420 Weight 160.3 kg Intake: Oral 480 420 Other: Voiding Method Urinal Urinal # Voids 3 2 - Exam Review of Systems Constitutional: Reports fatigue, Reports malaise, Reports weakness, Denies anorexia, Denies chronic headaches, Denies chronic pain, Denies weight gain, Denies weight loss Eyes: denies blurred vision, denies bulging eye, denies decreased vision Ears, nose, mouth and throat: Denies dysphagia, Denies neck lump, Denies swelling in throat, Denies sore throat Cardiovascular: Reports decreased exercise tolerance, Reports dyspnea on exertio n, Reports lightheadedness, Reports shortness of breath, Denies chest pain, Denies rapid heart beat, Denies syncope Respiratory: Reports congestion, Reports cough, Reports cough with sputum, Reports dyspnea-improving, Reports home oxygen, Reports pleurisy, Reports respiratory infections, Reports sleep apnea, Reports wheezing, Denies snoring Gastrointestinal: Denies abdominal pain, Denies bloating, Denies BRBPR, Denies excessive gas, Denies heartburn, Denies hematemesis, Denies melena, Denies nausea, Denies vomiting Genitourinary: Reports nocturia, Denies dysuria Musculoskeletal: Denies myalgias Musculoskeletal: absent: ankle pain, ankle stiffness, ankle swelling, elbow pain, elbow stiffness, elbow swelling, foot pain, foot stiffness, foot swelling, hand pain, hand stiffness, hand swelling, hip pain, hip stiffness, hip swelling, knee pain, knee stiffness, knee swelling, shoulder pain, shoulder stiffness, shoulder swelling, wrist pain, wrist stiffness, wrist swelling Integumentary: Denies pruritus, Denies rash Neurological: Denies numbness, Denies weakness Psychiatric: Denies anxiety, Denies depression Endocrine: Denies fatigue, Denies weight change Physical examination GEN: This is a 74-year-old morbidly obese male. He is resting in a recliner and appears to be comfortable and in no acute distress. No respiratory distress noted. HEENT: Head is atraumatic, normocephalic, pupils were equal round reactive to light and accommodation, extraocular muscle movement were intact, mucus membranes of the mouth are dry. No lesions noted, no thrush. Neck: Supple, no JVP, decreased carotid upstroke bilaterally. Chest: Decreased breath sounds at the bases, few rhonchi, no expiratory wheezes, no chest wall tenderness, no intercostal retractions. No accessory muscle usage. Heart: First heart sound is depressed, second heart sound is normal, irregularly irregular, there is systolic ejection murmur 2/6 located in the left sternal border. Abdomen: Soft, nontender, nondistended, positive bowel sounds Extremities: No edema, no calf tenderness, chronic skin changes dorsalis pedis +2 bilaterally. Neurologic examination: Patient is awake alert and oriented 3, creatinine treated 12 appear grossly intact, muscle power 4 out of 5 in upper and lower extremities bilaterally. - Labs CBC & Chem 7: 10/20/19 06:49 10/20/19 06:49 Labs: Abnormal Lab Results - Last 24 Hours (Table) 10/20/19 10/20/19 10/20/19 Range/Units 06:49 06:49 06:49 Hgb 12.6 L (13.0-17.5) gm/dL PT 26.5 H (9.0-12.0) sec INR 2.7 H (<1.2) Chloride 109 H (98-107) mmol/L BUN 27 H (9-20) mg/dL Microbiology - Last 24 Hours (Table) 10/17/19 10:02 Blood Culture - Preliminary Blood No Growth after 48 hours Assessment and Plan Plan: 1. Acute hypoxemic respiratory failure secondary to right middle lobe pneumonia possible Covid 19. Continue airborne/droplet with eye precautions. Continue patient oxygen to keep his saturation greater than or equal to 94% at all the time, continue patient on nebulized treatment DuoNeb 3 mL 4 times every day, continue IV antibiotic in the form of Zithromax 500 mg oral every 24 hours and Rocephin 1 g IV piggyback every [address] Terri webb. 2. Right middle lobe pneumonia. Continue treatment as in paragraph #1. 3. Chronic atrial fibrillation. Continue Cardizem 30 mg 3 times daily, Lopr essor 100 mg twice daily and Coumadin at home dosing. Continue to monitor INR. Coumadin is being dosed by pharmacy. 4. Secondary moderate pulmonary hypertension with systolic pressure of 48 secondary to obstructive sleep apnea, unable to tolerate CPAP . 5. Hypertension. Continue Lopressor 100 mg orally twice every day hold for systolic blood pressure less than 110 and her heart rate less than 50. 6. Chronic heart failure. Continue Lasix 40 mg PO every 12 hours and Aldactone 25 mg daily. 7. Benign prostatic hypertrophy. Continue Cardura 8 mg orally once every day. 8. Hyperlipidemia. Continue Pravachol 40 mg orally bedtime. 9. Gout unspecified. Continue colchicine and allopurinol. 10. Chronic low back pain and generalized osteoarthritis, stable. 11. DVT prophylaxis. Patient is on Coumadin we will continue to monitor INR and daily basis. 12. Gastrointestinal prophylaxis. Protonix 40 mg orally once every day. Patient is full code. Discharge plan: Return home in the next 24-48 hours. Impression and plan of care have been directed as dictated by the signing ph ysician. Linda Maloney nurse practitioner acting as scribe for signing physician.
[2019-10-20] MEDS: POTASSIUM CHLORIDE ER 10 MEQ TAB.ER.PRT PO SCH (17:08)
[2019-10-20] MEDS: METOPROLOL TARTRATE 50 MG TAB PO SCH (17:09)
[2019-10-20] MEDS ORDERED: WARFARIN 3 MG TAB PO ONE (18:00)
[2019-10-20] MEDS ORDERED: WARFARIN 5 MG TAB PO SCH (18:00)
[2019-10-20] MEDS: PRAVASTATIN SODIUM 20 MG TAB PO SCH (20:28)
[2019-10-20] MEDS: ALLOPURINOL 100 MG TAB PO SCH (20:28)
[2019-10-21] MEDS: METOPROLOL TARTRATE 50 MG TAB PO SCH (06:28)
[2019-10-21] MEDS: SODIUM CHLORIDE 0.9% 1,000 ML IV SCH (06:29)
[2019-10-21] MEDS: ALBUTEROL INHALER 60 PUFF/8 GM INHALER (BULK) INHALATION SCH ×2 (07:44→11:03)
[2019-10-21 08:01] LABS: Prothrombin Time 19.4 sec (9.0-12.0)
[2019-10-21] MEDS: COLCHICINE 0.6 MG EACH PO SCH (08:07)
[2019-10-21] MEDS: LISINOPRIL 20 MG TAB PO SCH (08:07)
[2019-10-21] MEDS: FUROSEMIDE 40 MG TAB PO SCH (08:07)
[2019-10-21] MEDS: SPIRONOLACTONE 25 MG TAB PO SCH (08:07)
[2019-10-21] MEDS: DILTIAZEM ORAL 30 MG TAB PO SCH (08:07)
[2019-10-21] MEDS: AZITHROMYCIN 500 MG TAB PO SCH (08:07)
[2019-10-21 08:12] VITALS: BP 122/73; RESP 18; TEMP 97.8
[2019-10-21 09:40] VITALS: PULSE 98
--- NOTE | 2019-10-21 12:12 | P.DS ---
Providers Date of admission: 10/17/19 12:20 Expected date of discharge: 10/21/19 Attending physician: Anish Espino Consults: 10/17/19 12:57 Consult Physician Routine Consulting Provider: Nicola Murray Consult Reason/Comments: pneumonia, r/o COVID19 Do you want consulting provider notified?: Yes Primary care physician: [facility] Course: This is a 74-year-old male patient of Dr. Grissom and Dr. Dominguez with known medical history of hypertension, hyperlipidemia and benign prostatic hypertrophy, chronic back pain, gout, osteoarthritis and borderline diabetes, chronic atrial fibrillation, pulmonary hypertension, obstructive sleep apnea , patient presented to the emergency department at [facility] today from his doctor's office due to increased shortness breath that has been going on for about 6 weeks according to him he was complaining of generalized malaise and myalgia and he was extremely short of breath he felt extremely weak to walk a few feet, patient was hypertensive in the office and his oxygen saturation was around 79% because of that he was referred to the emergency department at [facility] initial evaluation showed a a low blood pressure he was given a bolus of IV fluid he was started on IV antibiotic, chest x-ray showed right middle lobe pneumonia patient was placed on 6 L oxygen and the influenza AMB came back negative Covid 19 still pending at the time of dictation, patient was started on IV antibiotic he was kept on oxygen nebulized treatment he would be admitted to the hospital pulmonary consultation will be obtained from Dr. Murray. 10/17: Patient remains in droplet isolation as COVID-19 test is pending. Patient was afebrile, heart rate 85, blood pressure 98/68, pulse ox 92% on 4 L nasal cannula. INR is 4.4. Pharmacy is dosing Coumadin. Repeat lactic acid yesterday afternoon was 1.3. Blood cultures no growth at 24 hours. Repeat chest x-ray this morning reveals cardiomegaly with prominent pulmonary vascular markings and increased lung markings just of congestive heart failure. Patient states that he is breathing easier today. He does have some sputum production. He denies any nausea vomiting. He did have soft stool today. Dr. Murray is on consult. 10/18: COVID-19 report is pending. Patient has been afebrile, heart rate 88, blood pressure 103/63, pulse ox 95% on 3 L nasal cannula. INR 3.7, BUN 34 and creatinine 1.27. Hemoglobin 11.6. Sputum culture is in progress. Blood culture no growth at 48 hours. Patient continues to have cough with sputum production. He denies having any fever or chills. He did have a normal bowel movement today. Dr. Murray is also on consult. 10/19: Patient has been afebrile, heart rate 101, blood pressure 110/71, pulse ox 95% on room air. Repeat blood work reveals normal white count of 8, hemoglobin 12.6, platelet count 218. INR 2.7. Sodium 143, potassium 4.5, chloride 109, CO2 26, BUN 27, creatinine 1.2, liver function tests normal. Sputum culture has been obtained and is in process. Blood culture no growth at 48 hours. Patient has been evaluated by Dr. Murray with plans to continue continue antibiotics, no steroids at this point. Possible discharge 624-48 hours and complete course of 7-10 days of antibiotics. 10/20: Patient has been afebrile, heart rate 80, blood pressure 122/73, pulse ox 94% on room air. INR today 2.0. Patient's breathing status is stable. COVID- 19 testing is negative. Patient will be discharged home today in stable condition. Discharge diagnoses: 1. Acute hypoxemic respiratory failure secondary to right middle lobe pneumonia. Covid 19 infection has been ruled out. 2. Right middle lobe pneumonia. 3. Chronic atrial fibrillation. 4. Secondary moderate pulmonary hypertension with systolic pressure of 48 secondary to obstructive sleep apnea, unable to tolerate CPAP . 5. Hypertension. 6. Chronic heart failure. 7. Benign prostatic hypertrophy. 8. Hyperlipidemia. 9. Gout chronic. 10. Chronic low back pain and generalized osteoarthritis, stable. Discharge plan: home Impression and plan of care have been directed as dictated by the signing physician. Linda Maloney nurse practitioner acting as scribe for signing physician. Patient Condition at Discharge: Good Plan - Discharge Summary Discharge Rx Participant: No New Discharge Prescriptions: New Azithromycin [Zithromax] 500 mg PO Q24H #3 tab Continue Spironolactone [Aldactone] 25 mg PO DAILY Pravastatin Sodium [Pravachol] 20 mg PO HS Allopurinol [Zyloprim] 100 mg PO HS Potassium Chloride [Klor-Con 10] 10 meq PO W/SUPPER Colchicine [Colcrys] 0.6 mg PO BID Doxazosin Mesylate [Cardura] 8 mg PO HS Albuterol Inhaler (Bulk) [Ventolin Hfa Inhaler (Bulk)] 2 puff INHALATION RT- Q4H PRN PRN Reason: Shortness Of Breath Diltiazem Oral [Cardizem*] 30 mg PO BID Benazepril HCl 20 mg PO DAILY Metoprolol Tartrate [Lopressor] 100 mg PO BID-W/MEALS Warfarin Sodium [Coumadin] 7.5 mg PO TUSA Warfarin Sodium [Coumadin] 5 mg PO SUMOWETHFR Furosemide [Lasix] 40 mg PO BID Discharge Medication List Allopurinol [Zyloprim] 100 mg PO HS 12/10/15 [History] Potassium Chloride [Klor-Con 10] 10 meq PO W/SUPPER 12/10/15 [History] Pravastatin Sodium [Pravachol] 20 mg PO HS 12/10/15 [History] Spironolactone [Aldactone] 25 mg PO DAILY 12/10/15 [History] Colchicine [Colcrys] 0.6 mg PO BID 09/27/16 [History] Doxazosin Mesylate [Cardura] 8 mg PO HS 09/27/16 [History] Albuterol Inhaler (Bulk) [Ventolin Hfa Inhaler (Bulk)] 2 puff INHALATION RT-Q4H PRN 10/17/19 [History] Benazepril HCl 20 mg PO DAILY 10/17/19 [History] Diltiazem Oral [Cardizem*] 30 mg PO BID 10/17/19 [History] Furosemide [Lasix] 40 mg PO BID 10/17/19 [History] Metoprolol Tartrate [Lopressor] 100 mg PO BID-W/MEALS 10/17/19 [History] Warfarin Sodium [Coumadin] 5 mg PO SUMOWETHFR 10/17/19 [History] Warfarin Sodium [Coumadin] 7.5 mg PO TUSA 10/17/19 [History] Azithromycin [Zithromax] 500 mg PO Q24H #3 tab 10/21/19 [Rx] Follow up Appointment(s)/Referral(s): Gianluca Grissom MD [Primary Care Provider] - 1 Week (Office closed, please call on Thursday for a telephone follow up appointment. ) Nicola Murray MD [STAFF PHYSICIAN] - 1 Week (Left message for office to call with follow up appointment. ) Patient Instructions/Handouts: Pneumonia (DC) Activity/Diet/Wound Care/Special Instructions: PNEUMONIA 1. Continue coughing and breathing exercises to help clear your lungs of secretions. 2. Sit upright during the day to promote lung expansion. Avoid lying flat. 3. Use incentive spirometer every hour to open your airways. 4. Wash your hands before taking your medications or using your nebulizer. 5. Drink clear liquids as directed, they can help loosen secretions. Avoid milk products, as these can make secretions thicker. 6. Do not smoke, or be around others who smoke. 7. Call your physician if your shortness of breath worsens, if you develop an increased fever greater than 101. Discharge Disposition: HOME SELF-CARE
[2019-10-21] MEDS ORDERED: WARFARIN 5 MG TAB PO ONE (18:00)
[2019-10-22] MEDS ORDERED: WARFARIN 5 MG TAB PO SCH (18:00)
--- NOTE | 2019-10-24 11:51 | CDI ---
Documentation Clarification Form Date: 10/24/19 From: Radha Alba Phone: If you have a question about this query, please contact Magda Peters, Financial Sales Associate at [phone] between 8am and 5pm. Admit Date: 10/17/19 Discharge Date:10/21/19 Patient Name: Sung Montilla Visit Number: [id number] ATTENTION: The Clinical Documentation Specialists (CDI) and [facility] Coding Staff appreciate your assistance in clarifying documentation. Please respond to the clarification below the line at the bottom and electronically sign. The CDI & [facility] Coding staff will review the response and follow-up if needed. Please note: Queries are made part of the Legal Health Record. If you have any questions, please contact the author of this message via ITS. Dear Dr. Espino The patient presented with pneumonia and dehydration. History/Risk Factors: History of pneumonia Clinical Indicators: Elevated WBCs, elevated lactic acid WBC: 17.6 Lactic acid: 2.2 Blood cultures: No growth Vitals signs on admission: T. 97.8, P. 108, R. 22, DARIEN 77/43 Treatment: Antibiotics: IV Rocephin IV Bolus: 1 L NS then at 100 mls/hr In your professional opinion, please clarify if these findings signify one of the following conditions, whether the condition is POA, and cause, if known: Condition SIRS, without underlying infectious process Sepsis Severe Sepsis Septic Shock Other, please specify Unable to determine Present on Admission Yes No Identify the (suspected) organism Link or clarify if there is associated (due to/with): Organ failure Shock SEVERE SEPSIS PRESENT ON ADMISSION DUE TO COMMUNITY ACQUIRED PNEUMONIA MTDD
== END 2019-10-21 11:10 | disposition home or self-care (01) | DRG 871 ==
LOC: EC 09:35 → 3SCARD 12:20
PROVIDERS: ADMIT Internal Medicine; ATTEND Internal Medicine
DX: A41.9 Sepsis, unspecified organism (principal); J96.01 Acute respiratory failure with hypoxia; I50.33 Acute on chronic diastolic (congestive) heart failure; J18.9 Pneumonia, unspecified organism; J44.0 Chronic obstructive pulmonary disease with (acute) lower respiratory infection; I48.20 Chronic atrial fibrillation, unspecified; Z68.42 Body mass index [BMI] 45.0-49.9, adult; R65.20 Severe sepsis without septic shock; I27.20 Pulmonary hypertension, unspecified; I95.9 Hypotension, unspecified; I11.0 Hypertensive heart disease with heart failure; E86.0 Dehydration; Z20.828 Contact with and (suspected) exposure to other viral communicable diseases; J98.01 Acute bronchospasm; E78.5 Hyperlipidemia, unspecified; E66.01 Morbid (severe) obesity due to excess calories; G47.33 Obstructive sleep apnea (adult) (pediatric); G89.29 Other chronic pain; I87.8 Other specified disorders of veins; M13.0 Polyarthritis, unspecified; M1A.9XX0 Chronic gout, unspecified, without tophus (tophi); N40.0 Benign prostatic hyperplasia without lower urinary tract symptoms; R79.1 Abnormal coagulation profile; K21.9 Gastro-esophageal reflux disease without esophagitis; R73.03 Prediabetes; M54.5 Low back pain; I45.10 Unspecified right bundle-branch block; Z79.01 Long term (current) use of anticoagulants; Z79.899 Other long term (current) drug therapy; Z96.653 Presence of artificial knee joint, bilateral; Z87.891 Personal history of nicotine dependence; Z86.14 Personal history of Methicillin resistant Staphylococcus aureus infection; Z90.49 Acquired absence of other specified parts of digestive tract; Z87.01 Personal history of pneumonia (recurrent); Z82.3 Family history of stroke; Z82.0 Family history of epilepsy and other diseases of the nervous system
CPT/HCPCS: 36415; 71045; 71046; 80048; 80053; 82550; 83605; 83735; 83880; 84484; 85025; 85027; 85379; 85610; 85730; 87040; 87070; 87205; 87502; 93005; 94640; 96361; 96374; 99285

== ENCOUNTER 2019-11-18 14:14 | Inpatient (IN) | payer MEDICARE, BC ==
[2019-11-18] MEDS ORDERED: SODIUM CHLORIDE 0.9% 500 ML 500 ML IV STA (14:35)
--- NOTE | 2019-11-18 14:35 | ED ---
General Adult HPI - General Source: patient Mode of arrival: wheelchair Limitations: no limitations <XiomyTarahmariah Loredo - Last Filed: 11/18/19 14:51> <RossSergio - Last Filed: 11/18/19 16:55> - General Chief complaint: Shortness of Breath Stated complaint: sob,cough Time Seen by Provider: 11/18/19 14:15 - History of Present Illness Initial comments: Dictation was produced using [employer] dictation software. please excuse any grammatical, word or spelling errors. This patient was cared for during a federal and state declared state of emergency secondary to Covid 19 Chief Complaint: 74-year-old male past medical history of H fibrillation, heart failure, hypertension presents with dyspnea and cough History of Present Illness: 74-year-old male who states that over the last 2 weeks she's been having worsening shortness of breath and cough. Denies having any fevers. He called his primary care doctor who instructed him to the emergency department today. Patient states discussed productive of yellowish sputum. It is like his symptoms are secondary to pneumonia considering he was recently diagnosed with pneumonia and has been hospitalized months ago. Patient has any fever, chills or night sweats. He's been at home. Hasn't been exposed to anybody with Covid 19. He has no pain complaints at this time. He does take Coumadin for atrial fibrillation. He's been compliant. No history of blood clots. Lives at home with his has not really been out of the house recently. The ROS documented in this emergency department record has been reviewed and confirmed by me. Those systems with pertinent positive or negative responses have been documented in the HPI. All other systems are other negative and/or noncontributory. PHYSICAL EXAM: General Impression: Alert and oriented x3, dyspneic HEENT: Normocephalic atraumatic, extra-ocular movements intact, pupils equal and reactive to light bilaterally, mucous membranes moist. Cardiovascular: Heart regular rate and rhythm Chest: Able to complete full sentences, no retractions, mildly tachypneic Abdomen: abdomen soft, non-tender, non-distended, no organomegaly Musculoskeletal: Pulses present and equal in all extremities, no peripheral edema Motor: no focal deficits noted Neurological: CN II-XII grossly intact, no focal motor or sensory deficits noted Skin: Intact with no visualized rashes Psych: Normal affect and mood ED course: 74-year-old male with chief complaint of shortness of breath. Vital signs upon arrival shows heart rate of 116, blood pressure 72/47, rest of vital signs within acceptable limits. Patient does have pulmonary infectious symptoms. We will test patient for Covid. Repeat oxygen level was measured at bedside is found to be hypoxic after some ambulation walking from triage to the emergency room bed. Repeat blood pressure without any intervention is 118/89. Patient care will be signed out to Dr. Ross who is coming to work at 3 PM. EKG interpretation: Ventricular rate 91, H fibrillation, QRS 102, QTc 467. No AL prolongation, no QTC prolongation, no ST or T-wave changes noted. EKG compared to 10/17/2019 showing no changes. Overall, this EKG is unremarkable (Yung Stauffer) - Related Data Home Medications Medication Instructions Recorded Confirmed Allopurinol [Zyloprim] 100 mg PO HS 12/10/15 10/17/19 Potassium Chloride [Klor-Con 10] 10 meq PO W/SUPPER 12/10/15 10/17/19 Pravastatin Sodium [Pravachol] 20 mg PO HS 12/10/15 10/17/19 Spironolactone [Aldactone] 25 mg PO DAILY 12/10/15 10/17/19 Colchicine [Colcrys] 0.6 mg PO BID 09/27/16 10/17/19 Doxazosin Mesylate [Cardura] 8 mg PO HS 09/27/16 10/17/19 Albuterol Inhaler (Mhu) [Ventolin 2 puff INHALATION RT-Q4H PRN 10/17/19 10/17/19 Hfa Inhaler (Mhu)] Benazepril HCl 20 mg PO DAILY 10/17/19 10/17/19 Diltiazem Oral [Cardizem*] 30 mg PO BID 10/17/19 10/17/19 Furosemide [Lasix] 40 mg PO BID 10/17/19 10/17/19 Metoprolol Tartrate [Lopressor] 100 mg PO BID-W/MEALS 10/17/19 10/17/19 Warfarin Sodium [Coumadin] 5 mg PO SUMOWETHFR 10/17/19 10/17/19 Warfarin Sodium [Coumadin] 7.5 mg PO TUSA 10/17/19 10/17/19 Previous Rx's Medication Instructions Recorded Azithromycin [Zithromax] 500 mg PO Q24H #3 tab 10/21/19 Allergies Allergy/AdvReac Type Severity Reaction Status Date / Time No Known Allergies Allergy Verified 11/18/19 14:23 Review of Systems ROS Other: All systems not noted in ROS Statement are negative. <Yung Stauffer - Last Filed: 11/18/19 14:51> ROS Other: All systems not noted in ROS Statement are negative. <Sergio Ross - Last Filed: 11/18/19 16:55> ROS Statement: Those systems with pertinent positive or pertinent negative responses have been documented in the HPI. Past Medical History Past Medical History: Atrial Fibrillation, Heart Failure, GERD/Reflux, Hyperl ipidemia, Hypertension, Osteoarthritis (OA), Pneumonia, Prostate Disorder, Sleep Apnea/CPAP/BIPAP, Vascular Disorder Additional Past Medical History / Comment(s): Acute respiratory failure 2ndary to interstitial pneumonia/sepsis/CHF, chronic lower extremity edema/discolorati on, venous insufficiency, CHLOE uses CPap on occasion, chronic low back pain, generalized arthritis, gout bilateral feet, 2018 MRSA infection R buttock with sepsis. History of Any Multi-Drug Resistant Organisms: MRSA Date of last positivie culture/infection: 04/08/18 MDRO Source:: buttock wound Past Surgical History: Cholecystectomy, Heart Catheterization, Joint Replacement Additional Past Surgical History / Comment(s): 02/19/17 diagnostic cardiac cath, bilateral total knee arthroplasty, ventral hernia repair, colonoscopies, I&D R buttock. Past Anesthesia/Blood Transfusion Reactions: No Reported Reaction Past Psychological History: No Psychological Hx Reported Smoking Status: Former smoker Past Alcohol Use History: None Reported Past Drug Use History: None Reported - Past Family History Father Family Medical History: CVA/TIA Additional Family Medical History / Comment(s): Dad at age 89 from stroke. Mother Family Medical History: Dementia Additional Family Medical History / Comment(s): Mother is alive at age 90 with dementia. Sister(s) Additional Family Medical History / Comment(s): Patient has 2 sisters with no major medical problems. Patient does not have any brothers. Patient has 2 adult children with no major medical problems. <Yung Stauffer - Last Filed: 11/18/19 14:51> General Exam Limitations: no limitations <Yung Stauffer - Last Filed: 11/18/19 14:51> Course Vital Signs 11/18/19 11/18/19 11/18/19 14:16 14:35 14:36 Temperature 97.4 F L Pulse Rate 116 H 88 87 Respiratory 24 24 24 Rate Blood Pressure 72/47 118/89 118/89 O2 Sat by Pulse 100 79 L 87 L Oximetry 11/18/19 11/18/19 11/18/19 14:57 15:20 15:25 Temperature Pulse Rate 96 92 Respiratory 24 24 26 H Rate Blood Pressure 89/54 83/70 O2 Sat by Pulse 91 L 94 L Oximetry 11/18/19 11/18/19 11/18/19 15:30 15:36 15:45 Temperature Pulse Rate 82 85 87 Respiratory 24 25 H 24 Rate Blood Pressure 83/70 101/56 94/57 O2 Sat by Pulse 96 94 L 94 L Oximetry 11/18/19 11/18/19 16:02 16:34 Temperature Pulse Rate 99 92 Respiratory 18 24 Rate Blood Pressure 89/45 100/44 O2 Sat by Pulse 94 L 94 L Oximetry Medical Decision Making - Lab Data Result diagrams: 11/18/19 14:42 11/18/19 14:42 <Sergio Ross - Last Filed: 11/18/19 16:55> - Medical Decision Making I started the patient on dopamine renal dose. Chest x-ray showed pulmonary edema and possibly opacification right lung psychiatric patient for pneumonia. I spoke with Dr. Grissom he agreed to admit the patient admitted the patient I wrote admitting orders. I put the patient in the ICU so I spoke with Dr. Esquivel he agreed to accept the patient. (Sergio Ross) - Lab Data Lab Results 11/18/19 11/18/19 11/18/19 Range/Units 14:42 14:42 14:42 WBC 12.3 H (3.8-10.6) k/uL RBC 4.28 L (4.30-5.90) m/uL Hgb 12.2 L (13.0-17.5) gm/dL Hct 39.3 (39.0-53.0) % MCV 91.8 (80.0-100.0) fL MCH 28.6 (25.0-35.0) pg MCHC 31.1 (31.0-37.0) g/dL RDW 14.2 (11.5-15.5) % Plt Count 134 L (150-450) k/uL Neutrophils % 85 % Lymphocytes % 5 % Monocytes % 8 % Eosinophils % 1 % Basophils % 0 % Neutrophils # 10.5 H (1.3-7.7) k/uL Lymphocytes # 0.6 L (1.0-4.8) k/uL Monocytes # 0.9 (0-1.0) k/uL Eosinophils # 0.1 (0-0.7) k/uL Basophils # 0.0 (0-0.2) k/uL Hypochromasia Slight PT 102.1 H (9.0-12.0) sec INR 9.7 H* (<1.2) APTT 53.4 H (22.0-30.0) sec Sample Site ABG pH (7.35-7.45) ABG pCO2 (35-45) mmHg ABG pO2 (83-108) mmHg ABG HCO3 (21-25) mmol/L ABG O2 Saturation (94-97) % ABG Base Excess mmol/L FiO2 % Sodium 138 (137-145) mmol/L Potassium 5.0 (3.5-5.1) mmol/L Chloride 104 (98-107) mmol/L Carbon Dioxide 24 (22-30) mmol/L Anion Gap 10 mmol/L BUN 49 H (9-20) mg/dL Creatinine 2.98 H (0.66-1.25) mg/dL Est GFR (CKD-EPI)AfAm 23 (>60 ml/min/1.73 sqM) Est GFR (CKD-EPI)NonAf 20 (>60 ml/min/1.73 sqM) Glucose 97 (74-99) mg/dL Plasma Lactic Acid Virgilio (0.7-2.0) mmol/L Calcium 8.8 (8.4-10.2) mg/dL Magnesium 2.0 (1.6-2.3) mg/dL Total Bilirubin 0.5 (0.2-1.3) mg/dL AST 16 L (17-59) U/L ALT 12 (4-49) U/L Alkaline Phosphatase 88 (38-126) U/L C-Reactive Protein 85.5 H (<10.0) mg/L NT-Pro-B Natriuret Pep pg/mL Total Protein 6.4 (6.3-8.2) g/dL Albumin 3.5 (3.5-5.0) g/dL Coronavirus (PCR) (Not Detectd) 11/18/19 11/18/19 11/18/19 Range/Units 14:42 14:42 14:42 WBC (3.8-10.6) k/uL RBC (4.30-5.90) m/uL Hgb (13.0-17.5) gm/dL Hct (39.0-53.0) % MCV (80.0-100.0) fL MCH (25.0-35.0) pg MCHC (31.0-37.0) g/dL RDW (11.5-15.5) % Plt Count (150-450) k/uL Neutrophils % % Lymphocytes % % Monocytes % % Eosinophils % % Basophils % % Neutrophils # (1.3-7.7) k/uL Lymphocytes # (1.0-4.8) k/uL Monocytes # (0-1.0) k/uL Eosinophils # (0-0.7) k/uL Basophils # (0-0.2) k/uL Hypochromasia PT (9.0-12.0) sec INR (<1.2) APTT (22.0-30.0) sec Sample Site ABG pH (7.35-7.45) ABG pCO2 (35-45) mmHg ABG pO2 (83-108) mmHg ABG HCO3 (21-25) mmol/L ABG O2 Saturation (94-97) % ABG Base Excess mmol/L FiO2 % Sodium (137-145) mmol/L Potassium (3.5-5.1) mmol/L Chloride (98-107) mmol/L Carbon Dioxide (22-30) mmol/L Anion Gap mmol/L BUN (9-20) mg/dL Creatinine (0.66-1.25) mg/dL Est GFR (CKD-EPI)AfAm (>60 ml/min/1.73 sqM) Est GFR (CKD-EPI)NonAf (>60 ml/min/1.73 sqM) Glucose (74-99) mg/dL Plasma Lactic Acid Virgilio 1.6 (0.7-2.0) mmol/L Calcium (8.4-10.2) mg/dL Magnesium (1.6-2.3) mg/dL Total Bilirubin (0.2-1.3) mg/dL AST (17-59) U/L ALT (4-49) U/L Alkaline Phosphatase (38-126) U/L C-Reactive Protein (<10.0) mg/L NT-Pro-B Natriuret Pep 3690 pg/mL Total Protein (6.3-8.2) g/dL Albumin (3.5-5.0) g/dL Coronavirus (PCR) Not Detected (Not Detectd) 11/18/19 Range/Units 15:56 WBC (3.8-10.6) k/uL RBC (4.30-5.90) m/uL Hgb (13.0-17.5) gm/dL Hct (39.0-53.0) % MCV (80.0-100.0) fL MCH (25.0-35.0) pg MCHC (31.0-37.0) g/dL RDW (11.5-15.5) % Plt Count (150-450) k/uL Neutrophils % % Lymphocytes % % Monocytes % % Eosinophils % % Basophils % % Neutrophils # (1.3-7.7) k/uL Lymphocytes # (1.0-4.8) k/uL Monocytes # (0-1.0) k/uL Eosinophils # (0-0.7) k/uL Basophils # (0-0.2) k/uL Hypochromasia PT (9.0-12.0) sec INR (<1.2) APTT (22.0-30.0) sec Sample Site Right Radial ABG pH 7.39 (7.35-7.45) ABG pCO2 41 (35-45) mmHg ABG pO2 80 L (83-108) mmHg ABG HCO3 24 (21-25) mmol/L ABG O2 Saturation 94.7 (94-97) % ABG Base Excess -0.2 mmol/L FiO2 80 % Sodium (137-145) mmol/L Potassium (3.5-5.1) mmol/L Chloride (98-107) mmol/L Carbon Dioxide (22-30) mmol/L Anion Gap mmol/L BUN (9-20) mg/dL Creatinine (0.66-1.25) mg/dL Est GFR (CKD-EPI)AfAm (>60 ml/min/1.73 sqM) Est GFR (CKD-EPI)NonAf (>60 ml/min/1.73 sqM) Glucose (74-99) mg/dL Plasma Lactic Acid Virgilio (0.7-2.0) mmol/L Calcium (8.4-10.2) mg/dL Magnesium (1.6-2.3) mg/dL Total Bilirubin (0.2-1.3) mg/dL AST (17-59) U/L ALT (4-49) U/L Alkaline Phosphatase (38-126) U/L C-Reactive Protein (<10.0) mg/L NT-Pro-B Natriuret Pep pg/mL Total Protein (6.3-8.2) g/dL Albumin (3.5-5.0) g/dL Coronavirus (PCR) (Not Detectd) Critical Care Time Critical Care Time: Yes Total Critical Care Time: 35 <Sergio Ross - Last Filed: 11/18/19 16:55> Disposition <Yung Stauffer - Last Filed: 11/18/19 14:51> Time of Disposition: 16:54 <Sergio Ross - Last Filed: 11/18/19 16:55> Clinical Impression: Pneumonia, Acute pulmonary edema, Acute renal failure, Coagulopathy Disposition: ADMITTED IP TO THIS HOSP Referrals: Gianluca Grissom MD [Primary Care Provider] - 1-2 days
[2019-11-18 15:20] LABS: Basophils % (A) 0 %; Eosinophils # (A) 0.1 k/uL (0-0.7); Eosinophils % (A) 1 %; HCT 39.3 % (39.0-53.0); HGB 12.2 gm/dL (13.0-17.5); Hypochromasia Slight; Lymphocytes # (A) 0.6 k/uL (1.0-4.8); Lymphocytes % (A) 5 %; MCH 28.6 pg (25.0-35.0); MCHC 31.1 g/dL (31.0-37.0); MCV 91.8 fL (80.0-100.0); Mean Platelet Volume 7.2; Monocytes # (A) 0.9 k/uL (0-1.0); Monocytes % (A) 8 %; Neutrophils # (A) 10.5 k/uL (1.3-7.7); Neutrophils % (A) 85 %; Platelet Count 134 k/uL (150-450); RBC 4.28 m/uL (4.30-5.90); RDW 14.2 % (11.5-15.5); WBC 12.3 k/uL (3.8-10.6)
[2019-11-18] MEDS ORDERED: ALBUTEROL HFA INHALER INHALATION STA (15:21)
[2019-11-18] MEDS ORDERED: cefTRIAXone IN SWFI 1,000 MG/10 ML SYRINGE IVP STA (15:21)
--- NOTE | 2019-11-18 15:23 | XR ---
EXAMINATION TYPE: XR chest 1V portable DATE OF EXAM: 11/18/2019 COMPARISON: 10/18/2019 HISTORY: Suspected covid 19 pneumonia. Shortness of breath. TECHNIQUE: Single frontal view of the chest is obtained. FINDINGS: In addition to diffuse interstitial prominence and moderate pulmonary vascular congestion more confluent right infrahilar opacity has developed in the interim. Marked cardiomegaly remains. No acute osseous pathology. Left costophrenic angles not included in the image and cannot be evaluated. IMPRESSION: Moderate interstitial pulmonary edema likely on the basis of congestive heart failure. A dditionally more confluent right basilar opacity has developed in the interim and could represent pne umonia or confluent pulmonary edema.
[2019-11-18 15:36] LABS: Albumin 3.5 g/dL (3.5-5.0); C Reactive Protein 85.5 mg/L (<10.0); Calcium 8.8 mg/dL (8.4-10.2); Total Bilirubin 0.5 mg/dL (0.2-1.3); Total Protein 6.4 g/dL (6.3-8.2)
[2019-11-18 15:52] LABS: Partial Thromboplastin Time 53.4 sec (22.0-30.0); Prothrombin Time 102.1 sec (9.0-12.0)
[2019-11-18 16:06] LABS: INR 9.7 (<1.2)
[2019-11-18 16:09] LABS: ABG Base Excess -0.2 mmol/L; ABG HCO3 24 mmol/L (21-25); ABG Oxygen Saturation 94.7 % (94-97); ABG PCO2 41 mmHg (35-45); ABG PH 7.39 (7.35-7.45); ABG PO2 80 mmHg (83-108); Allen Test Performed? Yes
[2019-11-18] MEDS: DEXTROSE/WATER 1 250ML.BAG with DOPamine DRIP 800 MG IV SCH (17:19)
[2019-11-18] MEDS ORDERED: AZITHROMYCIN 500 MG in SODIUM CHLORIDE 0.9% 250 ML IVPB SCH (18:15)
[2019-11-18 19:00] LABS: Glucose,Whole Blood 98 mg/dL (75-99)
[2019-11-18] MEDS: PANTOPRAZOLE 40 MG/10 ML VIAL IVP SCH (19:59)
[2019-11-18] MEDS: FUROSEMIDE 10 MG/ML 2 ML VIAL IV SCH (20:45)
--- NOTE | 2019-11-18 20:48 | P.HPIM ---
History of Present Illness H&P Date: 11/18/19 Chief Complaint: Acute respiratory failure, cough with acute pneumonitis, acute renal failur 74-year-old male one of my office patient with known for long time with past medical history of A. fib with RVR, congestive heart failure, chronic edema and chronic anasarca, history of obstructive sleep apnea hyperlipidemia and hyperglycemia who called the office today was to be seen because of worsening dyspnea and shortness of breath with minimum exertion with cough productive Dr. phlegm patient pulse ox has been low and has been having significant tachycardia and tachypnea. With low-grade temperature with suspicion for Covid 19 patient was diverted to the emergency department where was seen and evaluated chest x- ray showed moderate interstitial pulmonary edema based on congestive heart failure with slight right basilar opacity consistent with pneumonia with significant picture of COPD and CHF. His BNP was mildly elevated. His INR was 9.7 with no change in dose in the lost few weeks patient INR has been running close to 2 normally. Patient also had mildly elevated white blood cell and significant worsening kidney failure with acute kidney failure on chronic kidney disease. He is still in A. fib with pulse rate running between 1910. Patient was giving 1 dose of Rocephin IV we'll continue furosemide IV 20 mg every 12 hours will be increased up to 40 mg twice a day attempt to start him on dopamine renal dose with a blood pressure below patient was hospitalized at this point. He is at high risk for the Covid 19 despite his test be negative the marker with Covid 19 were low probability patient will be kept on anticoagulation his blood is thin at this point but no reason for any other treatment at this point. We'll consult pulmonary and cardiology and admit patient to the hospital. Review of Systems CONSTITUTIONAL: Morbidly obese laying in bed in mild respiratory distress quite but the Neck. EYES: No icterus sclerae, no conjunctivitis. EARS, NOSE, MOUTH, THROAT, and FACE: No sore throat, lymphadenopathy, carotid bruits or deformity. RESPIRATORY: Positive shortness of breath cough and wheezes. CARDIOVASCULAR: Positive PND orthopnea palpitation positive increased edema no sign of angina. GASTROINTESTINAL: No Abd pain, Nausea or vomiting, no Diarrhea or constipation, No GI Bleed, no distention or masses. GENITOURINARY: Negative for Hematuria or UTI, no kidney stones. Slight decrease in urine output. INTEGUMENT/BREAST: Negative for any muscular injury with mild osteoarthritis.. And mild myalgia. HEMATOLOGIC/LYMPHATIC: Negative for bleed or purpura. MUSCULOSKELTAL: Negative for Myalgia or arthralgia. NEURLOGICAL: No LOC, Sz or syncope, blurred vision dizziness or abnormality.. BEHAVIORAL/PSYCH: Negative. ENDOCRINE: Negative. Past Medical History Past Medical History: Atrial Fibrillation, Heart Failure, GERD/Reflux, Hyperlipidemia, Hypertension, Osteoarthritis (OA), Pneumonia, Prostate Disorder, Sleep Apnea/CPAP/BIPAP, Vascular Disorder Additional Past Medical History / Comment(s): Acute respiratory failure 2ndary to interstitial pneumonia/sepsis/CHF, chronic lower extremity edema/discoloration, venous insufficiency, CHLOE uses CPap on occasion, chronic low back pain, generalized arthritis, gout bilateral feet, 2018 MRSA infection R buttock with sepsis. History of Any Multi-Drug Resistant Organisms: MRSA Date of last positivie culture/infection: 04/08/18 MDRO Source:: buttock wound Past Surgical History: Cholecystectomy, Heart Catheterization, Joint Replacement Additional Past Surgical History / Comment(s): 02/19/17 diagnostic cardiac cath, bilateral total knee arthroplasty, ventral hernia repair, colonoscopies, I&D R buttock. Past Anesthesia/Blood Transfusion Reactions: No Reported Reaction Past Psychological History: No Psychological Hx Reported Smoking Status: Former smoker Past Alcohol Use History: None Reported Past Drug Use History: None Reported - Past Family History Father Family Medical History: CVA/TIA Additional Family Medical History / Comment(s): Dad at age 89 from stroke. Mother Family Medical History: Dementia Additional Family Medical History / Comment(s): Mother is alive at age 90 with dementia. Sister(s) Additional Family Medical History / Comment(s): Patient has 2 sisters with no major medical problems. Patient does not have any brothers. Patient has 2 adult children with no major medical problems. Medications and Allergies Home Medications Medication Instructions Recorded Confirmed Type Allopurinol [Zyloprim] 100 mg PO HS@0 12/10/15 11/18/19 History Potassium Chloride [Klor-Con 10] 10 meq PO W/SUPPER 12/10/15 11/18/19 History Pravastatin Sodium [Pravachol] 20 mg PO HS@0 12/10/15 11/18/19 History Spironolactone [Aldactone] 25 mg PO DAILY@0700 12/09/16 05/01/20 History Colchicine [Colcrys] 0.6 mg PO DAILY@69909/27/16 11/18/19 History Doxazosin Mesylate [Cardura] 8 mg PO HS@219909/27/16 11/18/19 History Benazepril HCl 20 mg PO DAILY@0710/17/19 11/18/19 History Diltiazem Oral [Cardizem*] 30 mg PO BID@0700,2200 10/17/19 11/18/19 History Furosemide [Lasix] 40 mg PO BID@0700,1500 10/17/19 11/18/19 History Metoprolol Tartrate [Lopressor] 100 mg PO BID-W/MEALS 10/17/19 11/18/19 History Warfarin Sodium [Coumadin] 5 mg PO SUMOWETHFR 10/17/19 11/18/19 History Warfarin Sodium [Coumadin] 7.5 mg PO TUSA 10/17/19 11/18/19 History Albuterol Sulfate [Albuterol 2 puff PO RT-Q6H PRN 11/18/19 11/18/19 History Sulfate Hfa] Sulfamethox-Tmp 800-160Mg [Bactrim 1 tab PO Q12HR 11/18/19 11/18/19 History DS 800-160 mg] Allergies Allergy/AdvReac Type Severity Reaction Status Date / Time No Known Allergies Allergy Verified 11/18/19 18:05 Physical Exam Vitals: Vital Signs Temp Pulse Resp BP Pulse Ox 11/18/19 20:00 97.5 F L 90 30 H 104/58 89 L 11/18/19 19:30 89 30 H 104/54 90 L 11/18/19 19:15 98 28 H 106/53 92 L 11/18/19 19:00 98.6 F 92 29 H 116/60 92 L 11/18/19 18:31 98.6 F 90 24 11/18/19 18:24 94 24 97/54 93 L 11/18/19 17:45 90 24 100/65 94 L 11/18/19 17:21 98 18 110/60 94 L 11/18/19 17:00 94 24 107/63 91 L 11/18/19 16:34 92 24 100/44 94 L 11/18/19 16:30 93 24 93/52 96 11/18/19 16:02 99 18 89/45 94 L 11/18/19 16:00 95 24 94/57 93 L 11/18/19 15:45 87 24 94/57 94 L 11/18/19 15:36 85 25 H 101/56 94 L 11/18/19 15:30 85 24 91/57 93 L 11/18/19 15:25 92 26 H 83/70 94 L 11/18/19 15:20 96 24 89/54 91 L 11/18/19 14:57 24 11/18/19 14:36 87 24 118/89 87 L 11/18/19 14:35 88 24 118/89 79 L 11/18/19 14:16 97.4 F L 116 H 24 72/47 100 Intake and Output 11/18/19 11/18/19 11/18/19 06:59 14:59 22:59 Intake Total 34.88 Output Total 400 Balance -365.12 Intake: IV 34.88 0.9 sodium chloride 20 Dextrose/Water 1 250ml. 14.88 bag @ 2.5 MCG/KG/MIN 7. 442 mls/hr IV .Q24H ROGER with DOPamine DRIP 800 mg Rx#:[id number] Output: Urine 400 Other: Weight 158.757 kg General Appearance: Alert, cooperative, mild respiratory distress, appears stated age. Morbidly obese Neck HEENT: Supple, no lymphadenopathy, no thyroid enlargement, no carotid bruits. Lungs: Decreased breath some bilaterally with fine rhonchi positive crackles in the bases specially right side positive mild inspiratory expiratory wheezes. Chest Wall: Decrease expansion with deep inspiration no tenderness and no deformity was found on exam, no costochondral pain or discomfort. Heart: Irregular rate and rhythm, S1, S2 positive this 3 positive JVD with systolic murmur. Back: Symmetric, no curvature, ROM normal, no CVA tenderness. Abdomen: Soft, non-tender, bowel sounds active all four quadrants, no masses, no organomegaly. Extremities: Significant edema with anasarca and slight discoloration from the knee down with 2+ edema decreased pulse and dorsalis pedis bilaterally. Pulses: 2+ and symmetric. Skin: Skin color, texture, tugor normal, no rashes or lesions. Neurologic: Alert oriented x3 cranial nerves II through XII intact, no motor deficit, no abnormal balance or gait. Results CBC & Chem 7: 11/18/19 14:42 11/18/19 14:42 Labs: Abnormal Lab Results - Last 24 Hours (Table) 11/18/19 11/18/19 11/18/19 Range/Units 14:42 14:42 14:42 WBC 12.3 H (3.8-10.6) k/uL RBC 4.28 L (4.30-5.90) m/uL Hgb 12.2 L (13.0-17.5) gm/dL Plt Count 134 L (150-450) k/uL Neutrophils # 10.5 H (1.3-7.7) k/uL Lymphocytes # 0.6 L (1.0-4.8) k/uL PT 102.1 H (9.0-12.0) sec INR 9.7 H* (<1.2) APTT 53.4 H (22.0-30.0) sec ABG pO2 (83-108) mmHg BUN 49 H (9-20) mg/dL Creatinine 2.98 H (0.66-1.25) mg/dL AST 16 L (17-59) U/L C-Reactive Protein 85.5 H (<10.0) mg/L 11/18/19 Range/Units 15:56 WBC (3.8-10.6) k/uL RBC (4.30-5.90) m/uL Hgb (13.0-17.5) gm/dL Plt Count (150-450) k/uL Neutrophils # (1.3-7.7) k/uL Lymphocytes # (1.0-4.8) k/uL PT (9.0-12.0) sec INR (<1.2) APTT (22.0-30.0) sec ABG pO2 80 L (83-108) mmHg BUN (9-20) mg/dL Creatinine (0.66-1.25) mg/dL AST (17-59) U/L C-Reactive Protein (<10.0) mg/L Thrombosis Risk Factor Assmnt - DVT/VTE Prophylaxis DVT/VTE Prophylaxis: Pharmacologic Prophylaxis ordered, Mechanical Prophylaxis ordered Assessment and Plan Assessment: 1 acute respiratory failure: Combination of CHF exacerbation, COPD exacerbation, pulmonary edema and right-sided pneumonia. Covered 19 was ruled out at this point. 2 CHF excessive patient: With significant fluid overload and pulmonary edema patient will be hospitalized continue dopamine renal dose, continue patient on Lasix smaller dose and titrate dose higher if kidney function will tolerate. We'll consult cardiology review his last echocardiogram and readjust his medication accordingly. 3 right lower lobe pneumonia: With the possibility of aspiration versus gram- negative, patient was giving Rocephin will keep him on azithromycin as well as this point repeat chest x-ray in 48 hours. 4 COPD exacerbation: Continue patient on Ventolin and Pulmicort continue O2 try to keep his pulse ox above 92 percentile. 5 acute kidney injury with stage III chronic kidney disease: Patient baseline creatinine was around 1.4 that significantly elevated with decrease urine output at this point with hypotension and hypoperfusion, patient will be watch closely watch his urine output we'll consult nephrology if kidney function remain decline. 6 covered 19 was ruled out. 7 A. fib with RVR: Patient has been on warfarin and his INR was over therapeutic at this point which will be held for the next 48 hours remain on metoprolol 100 mg twice a day. 8 hypertension: Has been on Benzapril along with Cardizem metoprolol and spironolactone. 9 coagulopathy: Most likely the interaction between Bactrim DS and warfarin not a clear who put patient on Bactrim DS at this point could be walk in the clinic was not prescribed in my office patient has not been seen in the last 6 weeks. We will hold Bactrim DS patient is not having any bleeding will continue to watch INR daily no need for vitamin K at this point. 10 recurrent gout: Patient has been on Zyloprim and colchicine. 11 GI prophylaxis: Patient will be kept on PPI with pantoprazole 40 mg daily. 12 DVT prophylaxis: Patient is on anticoagulation and his hyper coagulopathy at this point we will hold his warfarin temporary. With status: Full code. Admit patient to inpatient status for more than 2 nights.
[2019-11-18] MEDS: DILTIAZEM ORAL 30 MG TAB PO SCH (21:25)
[2019-11-18] MEDS: PRAVASTATIN SODIUM 20 MG TAB PO SCH (21:25)
[2019-11-18] MEDS: ALLOPURINOL 100 MG TAB PO SCH (21:25)
[2019-11-18] MEDS: AZITHROMYCIN 500 MG in SODIUM CHLORIDE 0.9% 250 ML IVPB SCH (21:25)
[2019-11-18] MEDS: methylPREDNISolone SOD SUCCI 40 MG/ML 1 ML VIAL IV SCH (23:24)
[2019-11-19 06:16] LABS: Basophils % (A) 0 %; Eosinophils # (A) 0.1 k/uL (0-0.7); Eosinophils % (A) 1 %; HCT 39.4 % (39.0-53.0); HGB 12.1 gm/dL (13.0-17.5); Hypochromasia Moderate; Lymphocytes # (A) 0.2 k/uL (1.0-4.8); Lymphocytes % (A) 2 %; MCH 28.5 pg (25.0-35.0); MCHC 30.7 g/dL (31.0-37.0); MCV 92.8 fL (80.0-100.0); Mean Platelet Volume 7.2; Monocytes # (A) 0.2 k/uL (0-1.0); Monocytes % (A) 2 %; Neutrophils # (A) 9.6 k/uL (1.3-7.7); Neutrophils % (A) 95 %; Platelet Count 125 k/uL (150-450); RBC 4.25 m/uL (4.30-5.90); RDW 13.7 % (11.5-15.5); WBC 10.1 k/uL (3.8-10.6)
--- NOTE | 2019-11-19 06:26 | XR ---
EXAMINATION TYPE: XR chest 1V DATE OF EXAM: 11/19/2019 HISTORY: CHF, PNA. REFERENCE: Previous study dated 11/18/2019. FINDINGS: The heart is enlarged. There is vascular prominence. There is interstitial and alveolar air space disease. There is blunting of both CP angles. I could not exclude small effusions. IMPRESSION: WORSENING CHANGES OF HEART FAILURE.
[2019-11-19 06:31] LABS: Prothrombin Time 108.4 sec (9.0-12.0)
[2019-11-19 06:35] LABS: Albumin 3.5 g/dL (3.5-5.0); Calcium 8.6 mg/dL (8.4-10.2); Magnesium 2.1 mg/dL (1.6-2.3); Phosphorus 4.1 mg/dL (2.5-4.5); Potassium 5.6 mmol/L (3.5-5.1); Total Bilirubin 0.5 mg/dL (0.2-1.3); Total Protein 6.5 g/dL (6.3-8.2)
[2019-11-19 06:38] LABS: INR >10.0 (<1.2)
[2019-11-19] MEDS ORDERED: PHYTONADIONE ORAL 5 MG/5 ML ORAL.SYRG PO STA ×2 (06:38→16:01)
[2019-11-19] MEDS: DILTIAZEM ORAL 30 MG TAB PO SCH ×2 (06:58→20:37)
[2019-11-19] MEDS: METOPROLOL TARTRATE 50 MG TAB PO SCH ×2 (08:34→16:47)
[2019-11-19] MEDS: PANTOPRAZOLE 40 MG/10 ML VIAL IVP SCH (08:34)
[2019-11-19] MEDS: FUROSEMIDE 10 MG/ML 2 ML VIAL IV SCH (08:35)
[2019-11-19] MEDS: methylPREDNISolone SOD SUCCI 40 MG/ML 1 ML VIAL IV SCH ×3 (08:35→23:51)
[2019-11-19] MEDS: ALBUTEROL HFA INHALER INHALATION PRN ×2 (09:04→21:17)
--- NOTE | 2019-11-19 11:12 | P.PN ---
Subjective Progress Note Date: 11/19/19 74-year-old male one of my office patient with known for long time with past medical history of A. fib with RVR, congestive heart failure, chronic edema and chronic anasarca, history of obstructive sleep apnea hyperlipidemia and hyperglycemia who called the office today was to be seen because of worsening dyspnea and shortness of breath with minimum exertion with cough productive DrNena romero patient pulse ox has been low and has been having significant tachycardia and tachypnea. With low-grade temperature with suspicion for Covid 19 patient was diverted to the emergency department where was seen and evaluated chest x- ray showed moderate interstitial pulmonary edema based on congestive heart failure with slight right basilar opacity consistent with pneumonia with significant picture of COPD and CHF. His BNP was mildly elevated. His INR was 9.7 with no change in dose in the lost few weeks patient INR has been running close to 2 normally. Patient also had mildly elevated white blood cell and significant worsening kidney failure with acute kidney failure on chronic kidney disease. He is still in A. fib with pulse rate running between 1910. Patient was giving 1 dose of Rocephin IV we'll continue furosemide IV 20 mg every 12 hours will be increased up to 40 mg twice a day attempt to start him on dopamine renal dose with a blood pressure below patient was hospitalized at this point. He is at high risk for the Covid 19 despite his test be negative the marker with Covid 19 were low probability patient will be kept on anticoagulation his blood is thin at this point but no reason for any other treatment at this point. We'll consult pulmonary and cardiology and admit patient to the hospital. 11/18: Patient remains in the ICU and on Dopamine gtt. INR is greater than 10. Patient received 1 dose of vitamin K this morning.Hemoglobin is at 12.1. Greco catheter in place draining blood-tinged urine. Patient is requesting to have Greco removed but we will plan to remove this tomorrow. He denies any blood in his stool. No nosebleeds. A repeat BUN 42 and creatinine 2.33 with potassium 5.6. Repeat chest x-ray reveals worsening changes of heart failure. He is currently on Lasix 20 mg IV every 12 hours and diuresing well. Patient is on IV steroids and NovoLog scale will be added. Symbicort also added. He does state his breathing is significantly improved since yesterday. Patient is followed by pulmonary medicine and cardiology. Objective - Vital Signs Vital signs: Vital Signs Temp 97.5 F L 11/19/19 04:00 Pulse 107 H 11/19/19 09:00 Resp 26 H 11/19/19 09:00 BP 93/69 11/19/19 09:00 Pulse Ox 89 L 11/19/19 09:00 Intake & Output 11/18/19 11/19/19 11/19/19 18:59 06:59 18:59 Intake Total 459.28 102.24 Output Total 1875 350 Balance -1415.72 -247.76 Weight 158.757 kg 156.8 kg Intake: IV 459.28 102.24 0.9 sodium chloride 120 30 Azithromycin 500 mg In 250 Sodium Chloride 0.9% 250 ml @ 250 mls/hr IVPB DAILY ROGER Rx#:[id number] Dextrose/Water 1 250ml. 89.28 22.24 bag @ 2.5 MCG/KG/MIN 7. 442 mls/hr IV .Q24H ROGER with DOPamine DRIP 800 mg Rx#:[id number] cefTRIAXone 1 gm In 50 Sodium Chloride 0.9% 50 ml @ 100 mls/hr IVPB Q24HR ROGER Rx#:[id number] Output: Urine 1875 350 Other: Voiding Method Indwelling Catheter - Exam Review of Systems CONSTITUTIONAL: Morbidly obese. Denies fever, denies chills. EYES: No icterus sclerae, no conjunctivitis. EARS, NOSE, MOUTH, THROAT, and FACE: No sore throat, lymphadenopathy, carotid bruits or deformity. RESPIRATORY: Positive shortness of breath cough and wheezes. CARDIOVASCULAR: Positive PND orthopnea palpitation positive increased edema no sign of angina. GASTROINTESTINAL: No Abd pain, Nausea or vomiting, no Diarrhea or constipation, No GI Bleed, no distention or masses. GENITOURINARY: Negative for Hematuria or UTI, no kidney stones. Slight decrease in urine output. INTEGUMENT/BREAST: Negative for any muscular injury with mild osteoarthritis.. And mild myalgia. HEMATOLOGIC/LYMPHATIC: Negative for bleed or purpura. MUSCULOSKELTAL: Negative for Myalgia or arthralgia. NEURLOGICAL: No LOC, Sz or syncope, blurred vision dizziness or abnormality.. BEHAVIORAL/PSYCH: Negative. ENDOCRINE: Negative. Physical examination General Appearance: Alert, cooperative,no respiratory distress, appears stated age. Morbidly obese Neck HEENT: Supple, no lymphadenopathy, no thyroid enlargement, no carotid bruits. Lungs: Decreased breath some bilaterally with fine rhonchi positive crackles in the bases specially right side positive mild inspiratory expiratory wheezes. Chest Wall: Decrease expansion with deep inspiration no tenderness and no deformity was found on exam, no costochondral pain or discomfort. Heart: Irregular rate and rhythm, S1, S2 positive this 3 positive JVD with systolic murmur. Back: Symmetric, no curvature, ROM normal, no CVA tenderness. Abdomen: Soft, non-tender, bowel sounds active all four quadrants, no masses, no organomegaly. Extremities: Significant edema with anasarca and slight discoloration from the knee down with trace edema decreased pulse and dorsalis pedis bilaterally. Pulses: 2+ and symmetric. Skin: Skin color, texture, tugor normal, no rashes or lesions. Neurologic: Alert oriented x3 cranial nerves II through XII intact, no motor deficit, no abnormal balance or gait. - Labs CBC & Chem 7: 11/19/19 05:32 11/19/19 05:32 Labs: Abnormal Lab Results - Last 24 Hours (Table) 11/18/19 11/18/19 11/18/19 Range/Units 14:42 14:42 14:42 WBC 12.3 H (3.8-10.6) k/uL RBC 4.28 L (4.30-5.90) m/uL Hgb 12.2 L (13.0-17.5) gm/dL MCHC (31.0-37.0) g/dL Plt Count 134 L (150-450) k/uL Neutrophils # 10.5 H (1.3-7.7) k/uL Lymphocytes # 0.6 L (1.0-4.8) k/uL PT 102.1 H (9.0-12.0) sec INR 9.7 H* (<1.2) APTT 53.4 H (22.0-30.0) sec ABG pO2 (83-108) mmHg Potassium (3.5-5.1) mmol/L BUN 49 H (9-20) mg/dL Creatinine 2.98 H (0.66-1.25) mg/dL Glucose (74-99) mg/dL AST 16 L (17-59) U/L C-Reactive Protein 85.5 H (<10.0) mg/L Procalcitonin (0.02-0.09) ng/mL 11/18/19 11/18/19 11/19/19 Range/Units 14:42 15:56 05:32 WBC (3.8-10.6) k/uL RBC 4.25 L (4.30-5.90) m/uL Hgb 12.1 L (13.0-17.5) gm/dL MCHC 30.7 L (31.0-37.0) g/dL Plt Count 125 L (150-450) k/uL Neutrophils # 9.6 H (1.3-7.7) k/uL Lymphocytes # 0.2 L (1.0-4.8) k/uL PT (9.0-12.0) sec INR (<1.2) APTT (22.0-30.0) sec ABG pO2 80 L (83-108) mmHg Potassium (3.5-5.1) mmol/L BUN (9-20) mg/dL Creatinine (0.66-1.25) mg/dL Glucose (74-99) mg/dL AST (17-59) U/L C-Reactive Protein (<10.0) mg/L Procalcitonin 0.15 H (0.02-0.09) ng/mL 11/19/19 11/19/19 Range/Units 05:32 05:32 WBC (3.8-10.6) k/uL RBC (4.30-5.90) m/uL Hgb (13.0-17.5) gm/dL MCHC (31.0-37.0) g/dL Plt Count (150-450) k/uL Neutrophils # (1.3-7.7) k/uL Lymphocytes # (1.0-4.8) k/uL PT 108.4 H (9.0-12.0) sec INR >10.0 H* (<1.2) APTT (22.0-30.0) sec ABG pO2 (83-108) mmHg Potassium 5.6 H (3.5-5.1) mmol/L BUN 42 H (9-20) mg/dL Creatinine 2.33 H (0.66-1.25) mg/dL Glucose 116 H (74-99) mg/dL AST (17-59) U/L C-Reactive Protein (<10.0) mg/L Procalcitonin (0.02-0.09) ng/mL Assessment and Plan Plan: 1. Acute hypoxic respiratory failure secondary to a combination of acute on chronic diastolic heart failure, COPD exacerbation, right-sided pneumonia. acute respiratory failure: Combination of CHF exacerbation, COPD exacerbation, pulmonary edema and right-sided pneumonia. Covered 19 was ruled out at this point. 2. Acute exacerbation of diastolic heart failure. Continue dopamine, Lasix 20 mg IV every 12 hours. Monitor I&O, daily weights, electrolyte and renal function. 3. Right lower lobe pneumonia, possible gram-negative pneumonia. Continue antibiotics 4. COPD exacerbation: Continue patient on Ventolin and Symbicort, IV Solu- Medrol. 5. Acute kidney injury with stage III chronic kidney disease: Patient baseline creatinine was around 1.4 that significantly elevated with decrease urine output at this point with hypotension and hypoperfusion, patient will be watch closely watch his urine output we'll consult nephrology if kidney function remain decline. 6. COVID-19 was ruled out. 7. A. fib with RVR: Patient has been on warfarin and his INR was over therapeutic at this point which will be held for the next 48 hours remain on metoprolol 100 mg twice a day. 8. Hypertension: Has been on Benzapril along with Cardizem metoprolol and spironolactone. 9. Hypercoagulopathy: Most likely the interaction between Bactrim DS and warfarin not a clear who put patient on Bactrim DS at this point could be walk in the clinic was not prescribed in my office patient has not been seen in the last 6 weeks. We will hold Bactrim DS patient is not having any bleeding will continue to watch INR daily no need for vitamin K at this point. 10. Chronic gout: Patient has been on Zyloprim and colchicine. 11 GI prophylaxis: Patient will be kept on PPI with pantoprazole 40 mg daily. 12 DVT prophylaxis: Patient is on anticoagulation and his hyper coagulopathy at this point we will hold his warfarin temporary. 13. Secondary moderate pulmonary hypertension with systolic pressure of 48 secondary to obstructive sleep apnea, unable to tolerate CPAP . CODE status: Full code. Discharge plan: To be determined Impression and plan of care have been directed as dictated by the signing physician. Linda Maloney nurse practitioner acting as scribe for signing physician.
[2019-11-19] MEDS: CLOTRIMAZOLE TROCHE 10 MG TROCHE MUCOUS MEM SCH ×4 (11:25→23:51)
[2019-11-19 11:29] LABS: Glucose,Whole Blood 165 mg/dL (75-99)
[2019-11-19] MEDS: INSULIN ASPART (NovoLOG) 100 UNIT/ML VIAL SQ SCH ×3 (12:01→20:36)
--- NOTE | 2019-11-19 13:00 | ECHOF ---
Referral Reason:chf MEASUREMENTS -------- HEIGHT: 180.3 cm WEIGHT: 158.8 kg BP: 105/60 RVIDd: 5.6 cm (< 3.3) IVSd: 1.3 cm (0.6 - 1.1) LVIDd: 5.1 cm (3.9 - 5.3) LVPWd: 1.5 cm (0.6 - 1.1) IVSs: 2.0 cm LVIDs: 3.6 cm LVPWs: 2.1 cm LAESV Index (A-L): 45.05 ml/m Ao Diam: 3.4 cm (2.0 - 3.7) AV Cusp: 2.3 cm (1.5 - 2.6) MV EXCURSION: 26.377 mm (> 18.000) MV EF SLOPE: 108 mm/s (70 - 150) EPSS: 0.7 cm RAP: 10.00 mmHg RVSP: 57.00 mmHg FINDINGS -------- Atrial fibrillation. This was a technically adequate study. The left ventricular size is normal. There is moderate concentric left ventricular hypertrophy. O verall left ventricular systolic function is normal with, an EF between 55 - 60 %. Left ventricular fillimg pressure cannot be estimated due to Atrial fibrillation. The right ventricle is severely enlarged. LA is severely dilated >40 ml/m2 The right atrium is markedly enlarged. Interatrial and interventricular septum intact. The aortic valve is trileaflet and appears structurally normal. There is mild aortic valve sclerosi s. There is no evidence of aortic regurgitation. There is no evidence of aortic stenosis. Mild mitral regurgitation is present. Moderate to severe tricuspid regurgitation present. There is moderate to severe pulmonary hypertens ion. The right ventricular systolic pressure, as measured by Doppler, is 57.00mmHg. There is no pulmonic regurgitation present. The aortic root size is normal. IVC Not well visulized. There is no pericardial effusion. CONCLUSIONS -------- 1. Atrial fibrillation. 2. This was a technically adequate study. 3. The left ventricular size is normal. 4. There is moderate concentric left ventricular hypertrophy. 5. Overall left ventricular systolic function is normal with, an EF between 55 - 60 %. 6. Left ventricular fillimg pressure cannot be estimated due to Atrial fibrillation. 7. The right ventricle is severely enlarged. 8. LA is severely dilated >40 ml/m2 9. The right atrium is markedly enlarged. 10. Interatrial and interventricular septum intact. 11. The aortic valve is trileaflet and appears structurally normal. 12. There is mild aortic valve sclerosis. 13. There is no evidence of aortic regurgitation. 14. There is no evidence of aortic stenosis. 15. Mild mitral regurgitation is present. 16. Moderate to severe tricuspid regurgitation present. 17. There is moderate to severe pulmonary hypertension. 18. The right ventricular systolic pressure, as measured by Doppler, is 57.00mmHg. 19. There is no pulmonic regurgitation present. 20. The aortic root size is normal. 21. IVC Not well visulized. 22. There is no pericardial effusion. [employer]: Edwige Freeman RDCS
[2019-11-19 13:07] LABS: Calcium 8.9 mg/dL (8.4-10.2); Potassium 5.9 mmol/L (3.5-5.1)
[2019-11-19 13:20] LABS: INR 9.7 (<1.2)
--- NOTE | 2019-11-19 13:32 | P.CNPUL ---
History of Present Illness Consult date: 11/19/19 (Critical care time 45 minutes) Reason for consult: dyspnea, COPD, pleural effusion, obstructive sleep apnea Chief complaint: Shortness of breath along with lower extremity edema History of present illness: This is a 74-year-old male seen eval examined in ICU, patient has progressive shortness of breath and also lower extremity swelling for the last 2 weeks denies any fever does have intermittent cough with yellowish sputum production patient has been advised by primary service to be evaluated in the emergency department, echocardiogram performed this morning revealed normal LV function with ejection fraction of 55% along with severe LVH right ventricle and left atria dilated size of left atria is more than 40 mL per meter square, patient noted to have severe pulmonary hypertension along with severe tricuspid regurgitation I have discussed the patient to use the CPAP/BiPAP machine he has declined his BNP is 3690, INR is over 10, coated 19 negative white cell count is 12,000 potassium 5.9. Creatinine 42/2.13 down from 49-0.98 he has minimal output he is on 2.5 mics of dopamine and 20 mg every 12 furosemide he has bilateral lower extremity +3 edema, patient is also getting IV steroids breathing treatments and antibiotics Review of Systems All systems: negative Past Medical History Past Medical History: Atrial Fibrillation, Heart Failure, GERD/Reflux, Hyperlipidemia, Hypertension, Osteoarthritis (OA), Pneumonia, Prostate Disorder, Sleep Apnea/CPAP/BIPAP, Vascular Disorder Additional Past Medical History / Comment(s): Acute respiratory failure 2ndary to interstitial pneumonia/sepsis/CHF, chronic lower extremity edema/discoloration, venous insufficiency, CHLOE uses CPap on occasion, chronic l ow back pain, generalized arthritis, gout bilateral feet, 2018 MRSA infection R buttock with sepsis. History of Any Multi-Drug Resistant Organisms: MRSA Date of last positivie culture/infection: 04/08/18 MDRO Source:: buttock wound Past Surgical History: Cholecystectomy, Heart Catheterization, Joint Replacement Additional Past Surgical History / Comment(s): 02/19/17 diagnostic cardiac cath, bilateral total knee arthroplasty, ventral hernia repair, colonoscopies, I&D R buttock. Past Anesthesia/Blood Transfusion Reactions: No Reported Reaction Past Psychological History: No Psychological Hx Reported Additional Psychological History / Comment(s): Pt resides with his spouse. He uses a cane/walker prn, He has a nebulizer. He drives. Smoking Status: Former smoker Past Alcohol Use History: None Reported Additional Past Alcohol Use History / Comment(s): Pt started smoking in 1962 and quit in 1977. He useed to drink 3-4 beers per day but now only drinks on holidays. Past Drug Use History: None Reported - Past Family History Father Family Medical History: CVA/TIA Additional Family Medical History / Comment(s): Dad at age 89 from stroke. Mother Family Medical History: Dementia Additional Family Medical History / Comment(s): Mother is alive at age 90 with dementia. Sister(s) Additional Family Medical History / Comment(s): Patient has 2 sisters with no major medical problems. Patient does not have any brothers. Patient has 2 adult children with no major medical problems. Medications and Allergies Home Medications Medication Instructions Recorded Confirmed Type Allopurinol [Zyloprim] 100 mg PO HS@219912/10/15 11/18/19 History Potassium Chloride [Klor-Con 10] 10 meq PO W/SUPPER 12/10/15 11/18/19 History Pravastatin Sodium [Pravachol] 20 mg PO HS@219912/10/15 11/18/19 History Spironolactone [Aldactone] 25 mg PO DAILY@0700 12/10/15 11/18/19 History Colchicine [Colcrys] 0.6 mg PO DAILY@0700 09/27/16 11/18/19 History Doxazosin Mesylate [Cardura] 8 mg PO HS@219909/27/16 11/18/19 History Benazepril HCl 20 mg PO DAILY@0700 10/17/19 11/18/19 History Diltiazem Oral [Cardizem*] 30 mg PO BID@0700,2200 10/17/19 11/18/19 History Furosemide [Lasix] 40 mg PO BID@0700,1500 10/17/19 11/18/19 History Metoprolol Tartrate [Lopressor] 100 mg PO BID-W/MEALS 10/17/19 11/18/19 History Warfarin Sodium [Coumadin] 5 mg PO SUMOWETHFR 10/17/19 11/18/19 History Warfarin Sodium [Coumadin] 7.5 mg PO TUSA 10/17/19 11/18/19 History Albuterol Sulfate [Albuterol 2 puff PO RT-Q6H PRN 11/18/19 11/18/19 History Sulfate Hfa] Sulfamethox-Tmp 800-160Mg [Bactrim 1 tab PO Q12HR 11/18/19 11/18/19 History DS 800-160 mg] Allergies Allergy/AdvReac Type Severity Reaction Status Date / Time No Known Allergies Allergy Verified 11/18/19 18:05 Physical Exam Vitals: Vital Signs Temp Pulse Resp BP Pulse Ox 11/19/19 12:00 98 F 90 32 H 105/58 90 L 11/19/19 11:00 89 34 H 96/64 89 L 11/19/19 10:30 91 34 H 100/67 90 L 11/19/19 10:00 89 24 96/58 88 L 11/19/19 09:30 90 21 96/77 90 L 11/19/19 09:00 107 H 26 H 93/69 89 L 11/19/19 08:30 109 H 26 H 111/68 91 L 11/19/19 08:00 111 H 28 H 105/69 92 L 11/19/19 07:30 112 H 21 94/56 90 L 11/19/19 07:00 105 H 14 105/60 91 L 11/19/19 06:30 114 H 16 99/55 92 L 11/19/19 06:00 112 H 16 97/59 92 L 11/19/19 05:30 98 14 95/74 91 L 11/19/19 05:00 96 20 107/56 92 L 11/19/19 04:30 16 99/61 89 L 11/19/19 04:00 97.5 F L 96 20 105/70 90 L 11/19/19 03:30 96 16 94/68 91 L 11/19/19 03:00 102 H 18 104/70 90 L 11/19/19 02:30 102 H 16 113/69 91 L 11/19/19 02:00 105 H 21 92/61 91 L 11/19/19 01:30 93 23 102/57 91 L 11/19/19 01:00 96 22 95/51 88 L 11/19/19 00:30 80 21 83/55 90 L 11/19/19 00:00 98.1 F 99 22 92/55 91 L 11/18/19 23:30 95 21 92/61 89 L 11/18/19 23:00 90 26 H 95/62 89 L 11/18/19 22:30 99 25 H 78/57 90 L 11/18/19 22:00 109 H 22 122/80 89 L 11/18/19 21:30 101 H 22 119/95 88 L 11/18/19 21:00 105 H 28 H 106/75 89 L 11/18/19 20:30 108 H 22 103/63 88 L 11/18/19 20:00 97.5 F L 90 30 H 104/58 89 L 11/18/19 19:30 89 30 H 104/54 90 L 11/18/19 19:15 98 28 H 106/53 92 L 11/18/19 19:00 98.6 F 92 29 H 116/60 92 L 11/18/19 18:31 98.6 F 90 24 11/18/19 18:24 94 24 97/54 93 L 11/18/19 17:45 90 24 100/65 94 L 11/18/19 17:21 98 18 110/60 94 L 11/18/19 17:00 94 24 107/63 91 L 11/18/19 16:34 92 24 100/44 94 L 11/18/19 16:30 93 24 93/52 96 11/18/19 16:02 99 18 89/45 94 L 11/18/19 16:00 95 24 94/57 93 L 11/18/19 15:45 87 24 94/57 94 L 11/18/19 15:36 85 25 H 101/56 94 L 11/18/19 15:30 85 24 91/57 93 L 11/18/19 15:25 92 26 H 83/70 94 L 11/18/19 15:20 96 24 89/54 91 L 11/18/19 14:57 24 11/18/19 14:36 87 24 118/89 87 L 11/18/19 14:35 88 24 118/89 79 L 11/18/19 14:16 97.4 F L 116 H 24 72/47 100 Intake and Output 11/18/19 11/19/19 11/19/19 22:59 06:59 14:59 Intake Total 319.76 139.52 654.44 Output Total 625 1250 1100 Balance -305.24 -1110.48 -445.56 Intake: IV 319.76 139.52 154.44 0.9 sodium chloride 40 80 60 Azithromycin 500 mg In 250 Sodium Chloride 0.9% 250 ml @ 250 mls/hr IVPB DAILY ROGER Rx#:[id number] Dextrose/Water 1 250ml. 29.76 59.52 44.44 bag @ 2.5 MCG/KG/MIN 7. 442 mls/hr IV .Q24H ROGER with DOPamine DRIP 800 mg Rx#:[id number] cefTRIAXone 1 gm In 50 Sodium Chloride 0.9% 50 ml @ 100 mls/hr IVPB Q24HR ROGER Rx#:[id number] Oral 500 Output: Urine 625 1250 1100 Other: Voiding Method Indwelling Catheter Indwelling Catheter Indwelling Catheter Weight 158.757 kg 156.8 kg 156.8 kg - Constitutional General appearance: disheveled, mild distress, morbidly obese - EENT Eyes: EOMI, PERRLA Ears: bilateral: normal - Neck Carotids: bilateral: upstroke normal Thyroid: bilateral: normal size - Respiratory Respiratory: bilateral: diminished, rales, wheezing, negative: CTA, dullness - Cardiovascular Rhythm: regular Heart sounds: normal: S1, S2 - Gastrointestinal General gastrointestinal: normal bowel sounds, soft - Integumentary Integumentary: normal turgor - Neurologic Neurologic: CNII-XII intact - Musculoskeletal Musculoskeletal: gait normal, generalized weakness, strength equal bilaterally - Psychiatric Psychiatric: A&O x's 3, appropriate affect, intact judgment & insight Results - Laboratory Findings CBC and BMP: 11/19/19 05:32 11/19/19 12:28 ABG ABG pH 7.39 (7.35-7.45) 11/18/19 15:56 ABG pCO2 41 mmHg (35-45) 11/18/19 15:56 ABG pO2 80 mmHg (83-108) L 11/18/19 15:56 ABG O2 Saturation 94.7 % (94-97) 11/18/19 15:56 PT/INR, D-dimer PT 102.0 sec (9.0-12.0) H 11/19/19 12:24 INR 9.7 (<1.2) H* 11/19/19 12:24 D-Dimer 0.30 mg/L FEU (<0.60) 11/18/19 14:42 Abnormal lab findings: Abnormal Labs 11/18/19 11/18/19 11/18/19 14:42 14:42 14:42 WBC 12.3 H RBC 4.28 L Hgb 12.2 L MCHC Plt Count 134 L Neutrophils # 10.5 H Lymphocytes # 0.6 L PT 102.1 H INR 9.7 H* APTT 53.4 H ABG pO2 Potassium BUN 49 H Creatinine 2.98 H Glucose POC Glucose (mg/dL) AST 16 L Creatine Kinase C-Reactive Protein 85.5 H Procalcitonin 11/18/19 11/18/19 11/19/19 14:42 15:56 05:32 WBC RBC 4.25 L Hgb 12.1 L MCHC 30.7 L Plt Count 125 L Neutrophils # 9.6 H Lymphocytes # 0.2 L PT INR APTT ABG pO2 80 L Potassium BUN Creatinine Glucose POC Glucose (mg/dL) AST Creatine Kinase C-Reactive Protein Procalcitonin 0.15 H 11/19/19 11/19/19 11/19/19 05:32 05:32 05:32 WBC RBC Hgb MCHC Plt Count Neutrophils # Lymphocytes # PT 108.4 H INR >10.0 H* APTT ABG pO2 Potassium 5.6 H BUN 42 H Creatinine 2.33 H Glucose 116 H POC Glucose (mg/dL) AST Creatine Kinase 40 L C-Reactive Protein Procalcitonin 11/19/19 11/19/19 11/19/19 11:27 12:24 12:28 WBC RBC Hgb MCHC Plt Count Neutrophils # Lymphocytes # PT 102.0 H INR 9.7 H* APTT ABG pO2 Potassium 5.9 H BUN 42 H Creatinine 2.13 H Glucose 166 H POC Glucose (mg/dL) 165 H AST Creatine Kinase C-Reactive Protein Procalcitonin - Diagnostic Findings Chest x-ray: report reviewed, image reviewed (Chest x-ray admitted and today's x-ray reviewed there is worsening changes of heart failure noted bilaterally along with small pleural effusion interstitial edema bilaterally) Assessment and Plan Assessment: Acute hypoxic respiratory failure Acute diastolic heart failure Severe pulmonary hypertension likely multifactorial including an element of obstructive sleep apnea Chronic renal failure Hyperkalemia Elevated PT/INR/coagulopathy on Coumadin currently on hold Morbid obesity Purulent tracheobronchitis Remote history of smoking Covid 19 negative Plan: Agree with broad-spectrum antibiotics bronchodilators and IV steroids for now We'll change the Lasix to Lasix strip 5 mg an hour and gently do continues dialysis Continue oxygen on 15 L oxygen was titrated down as tolerated Patient will need BiPAP each night and when necessary during the day currently declining we'll continue to communicate with the patient Patient has been given 5 mg vitamin K last night was given another 5 mg vitamin K monitor labs including PT/INR daily along with chest x-ray Further recommendations pending plan of care as per clinical response of the patient Time with Patient: Greater than 30
[2019-11-19] MEDS: FUROSEMIDE 100 MG in SODIUM CHLORIDE 0.9% 90 ML IV SCH (14:04)
--- NOTE | 2019-11-19 14:35 | P.CRDCN ---
History of Present Illness Consult date: 11/19/19 History of present illness: Is a 74-year-old gentleman who follows with Dr. Dominguez in the office. He has a known history of chronic persistent atrial fibrillation, hypertension, hyperlipidemia, sleep apnea, GERD, osteoarthritis, chronic edema and anasarca, patient underwent a cardiac catheterization, right sided, in February 2017, there was no evidence at that time of pulmonary hypertension. Resented to the hospital with symptoms of progressively worsening shortness of breath as well as associated cough with productive sputum. Patient was also running a low-grade temperature and was referred to come to the emergency room for further evaluation and treatment by his primary care doctor. Chest x-ray showed moderate interstitial pulmonary edema, with right basilar obesity consistent with pneumonia. Significant picture suggesting COPD and congestive heart failure. BNP level was mildly elevated, INR was 9.7 on admission. Patient had elevated white blood cell and significant worsening renal failure, acute on chronic. Patient continued to be in atrial fibrillation at the time of her examination here he is also on IV antibiotics and IV Lasix at this time. Blood pressure this morning 106/60 with a heart rate in the 90s, respirations 30. Laboratory data from today, white blood cell count 10.1, hemoglobin 12.1, platelet count 125. INR greater than 10 this morning, 9.7 at noon. Sodium 139, potassium 5.9, BUN 42, creatinine 2.1. Patient is currently on IV Lasix drip at 5 mg per hour along with the dopamine drip at 2.5 mcg/kg per hour. He's receiving IV antibiotics along with steroids. Past Medical History Past Medical History: Atrial Fibrillation, Heart Failure, GERD/Reflux, Hyperlipidemia, Hypertension, Osteoarthritis (OA), Pneumonia, Prostate Disorder, Sleep Apnea/CPAP/BIPAP, Vascular Disorder Additional Past Medical History / Comment(s): Acute respiratory failure 2ndary to interstitial pneumonia/sepsis/CHF, chronic lower extremity edema/discoloration, venous insufficiency, CHLOE uses CPap on occasion, chronic low back pain, generalized arthritis, gout bilateral feet, 2018 MRSA infection R buttock with sepsis. History of Any Multi-Drug Resistant Organisms: MRSA Date of last positivie culture/infection: 04/08/18 MDRO Source:: buttock wound Past Surgical History: Cholecystectomy, Heart Catheterization, Joint Replacement Additional Past Surgical History / Comment(s): 02/19/17 diagnostic cardiac cath, bilateral total knee arthroplasty, ventral hernia repair, colonoscopies, I&D R buttock. Past Anesthesia/Blood Transfusion Reactions: No Reported Reaction Past Psychological History: No Psychological Hx Reported Additional Psychological History / Comment(s): Pt resides with his spouse. He uses a cane/walker prn, He has a nebulizer. He drives. Smoking Status: Former smoker Past Alcohol Use History: None Reported Additional Past Alcohol Use History / Comment(s): Pt started smoking in 1962 and quit in 1977. He useed to drink 3-4 beers per day but now only drinks on holidays. Past Drug Use History: None Reported - Past Family History Father Family Medical History: CVA/TIA Additional Family Medical History / Comment(s): Dad at age 89 from stroke. Mother Family Medical History: Dementia Additional Family Medical History / Comment(s): Mother is alive at age 90 with dementia. Sister(s) Additional Family Medical History / Comment(s): Patient has 2 sisters with no major medical problems. Patient does not have any brothers. Patient has 2 adult children with no major medical problems. Medications and Allergies Home Medications Medication Instructions Recorded Confirmed Type Allopurinol [Zyloprim] 100 mg PO HS@219912/10/15 11/18/19 History Potassium Chloride [Klor-Con 10] 10 meq PO W/SUPPER 12/10/15 11/18/19 History Pravastatin Sodium [Pravachol] 20 mg PO HS@219912/10/15 11/18/19 History Spironolactone [Aldactone] 25 mg PO DAILY@69912/10/15 11/18/19 History Colchicine [Colcrys] 0.6 mg PO DAILY@0700 09/27/16 11/18/19 History Doxazosin Mesylate [Cardura] 8 mg PO HS@219909/27/16 11/18/19 History Benazepril HCl 20 mg PO DAILY@0700 10/17/19 11/18/19 History Diltiazem Oral [Cardizem*] 30 mg PO BID@0700,2200 10/17/19 11/18/19 History Furosemide [Lasix] 40 mg PO BID@0700,1500 10/17/19 11/18/19 History Metoprolol Tartrate [Lopressor] 100 mg PO BID-W/MEALS 10/17/19 11/18/19 History Warfarin Sodium [Coumadin] 5 mg PO SUMOWETHFR 10/17/19 11/18/19 History Warfarin Sodium [Coumadin] 7.5 mg PO TUSA 10/17/19 11/18/19 History Albuterol Sulfate [Albuterol 2 puff PO RT-Q6H PRN 11/18/19 11/18/19 History Sulfate Hfa] Sulfamethox-Tmp 800-160Mg [Bactrim 1 tab PO Q12HR 11/18/19 11/18/19 History DS 800-160 mg] Allergies Allergy/AdvReac Type Severity Reaction Status Date / Time No Known Allergies Allergy Verified 11/18/19 18:05 Physical Exam Vitals: Vital Signs Temp Pulse Resp BP Pulse Ox 11/19/19 14:00 93 30 H 106/66 90 L 11/19/19 13:30 91 28 H 112/63 92 L 11/19/19 13:00 91 31 H 117/69 91 L 11/19/19 12:30 89 30 H 100/67 90 L 11/19/19 12:00 98 F 90 32 H 105/58 90 L 11/19/19 11:00 89 34 H 96/64 89 L 11/19/19 10:30 91 34 H 100/67 90 L 11/19/19 10:00 89 24 96/58 88 L 11/19/19 09:30 90 21 96/77 90 L 11/19/19 09:00 107 H 26 H 93/69 89 L 11/19/19 08:30 109 H 26 H 111/68 91 L 11/19/19 08:00 111 H 28 H 105/69 92 L 11/19/19 07:30 112 H 21 94/56 90 L 11/19/19 07:00 105 H 14 105/60 91 L 11/19/19 06:30 114 H 16 99/55 92 L 11/19/19 06:00 112 H 16 97/59 92 L 11/19/19 05:30 98 14 95/74 91 L 11/19/19 05:00 96 20 107/56 92 L 11/19/19 04:30 16 99/61 89 L 11/19/19 04:00 97.5 F L 96 20 105/70 90 L 11/19/19 03:30 96 16 94/68 91 L 11/19/19 03:00 102 H 18 104/70 90 L 11/19/19 02:30 102 H 16 113/69 91 L 11/19/19 02:00 105 H 21 92/61 91 L 11/19/19 01:30 93 23 102/57 91 L 11/19/19 01:00 96 22 95/51 88 L 11/19/19 00:30 80 21 83/55 90 L 11/19/19 00:00 98.1 F 99 22 92/55 91 L 11/18/19 23:30 95 21 92/61 89 L 11/18/19 23:00 90 26 H 95/62 89 L 11/18/19 22:30 99 25 H 78/57 90 L 11/18/19 22:00 109 H 22 122/80 89 L 11/18/19 21:30 101 H 22 119/95 88 L 11/18/19 21:00 105 H 28 H 106/75 89 L 11/18/19 20:30 108 H 22 103/63 88 L 11/18/19 20:00 97.5 F L 90 30 H 104/58 89 L 11/18/19 19:30 89 30 H 104/54 90 L 11/18/19 19:15 98 28 H 106/53 92 L 11/18/19 19:00 98.6 F 92 29 H 116/60 92 L 11/18/19 18:31 98.6 F 90 24 11/18/19 18:24 94 24 97/54 93 L 11/18/19 17:45 90 24 100/65 94 L 11/18/19 17:21 98 18 110/60 94 L 11/18/19 17:00 94 24 107/63 91 L 11/18/19 16:34 92 24 100/44 94 L 11/18/19 16:30 93 24 93/52 96 11/18/19 16:02 99 18 89/45 94 L 11/18/19 16:00 95 24 94/57 93 L 11/18/19 15:45 87 24 94/57 94 L 11/18/19 15:36 85 25 H 101/56 94 L 11/18/19 15:30 85 24 91/57 93 L 11/18/19 15:25 92 26 H 83/70 94 L 11/18/19 15:20 96 24 89/54 91 L 11/18/19 14:57 24 11/18/19 14:36 87 24 118/89 87 L 11/18/19 14:35 88 24 118/89 79 L Intake and Output 11/18/19 11/19/19 11/19/19 22:59 06:59 14:59 Intake Total 319.76 139.52 699.24 Output Total 625 1250 1375 Balance -305.24 -1110.48 -675.76 Intake: IV 319.76 139.52 199.24 0.9 sodium chloride 40 80 80 Azithromycin 500 mg In 250 Sodium Chloride 0.9% 250 ml @ 250 mls/hr IVPB DAILY R[facility] Rx#:[id number] Dextrose/Water 1 250ml. 29.76 59.52 59.24 bag @ 2.5 MCG/KG/MIN 7. 442 mls/hr IV .Q24H R[facility]ER with DOPamine DRIP 800 mg Rx#:[id number] Furosemide 100 mg In 10 Sodium Chloride 0.9% 90 ml @ 5 MG/HR 5 mls/hr IV .Q20H ROGER Rx#:[id number] cefTRIAXone 1 gm In 50 Sodium Chloride 0.9% 50 ml @ 100 mls/hr IVPB Q24HR ROGER Rx#:[id number] Oral 500 Output: Urine 625 1250 1375 Other: Voiding Method Indwelling Catheter Indwelling Catheter Indwelling Catheter Weight 158.757 kg 156.8 kg 156.8 kg PHYSICAL EXAMINATION: GENERAL: 74-year-old gentleman in no acute distress at the time of my examination HEENT: Head is atraumatic, normocephalic. Pupils equal, round. Sclera anicteric. Conjunctiva are clear. Mucous membranes of the mouth are moist. Neck is supple. There is elevated jugular venous pressure. No carotid bruit is heard. HEART EXAMINATION: Heart S1 and S2 irregularly irregular a systolic murmur is heard CHEST EXAMINATION: Lungs are clear to auscultation and precussion. No chest wall tenderness is noted on palpation or with deep breathing. ABDOMEN: Soft, obese, nontender. Bowel sounds are heard. No organomegaly noted. EXTREMITIES: 2+ peripheral pulses with 2-3+ evidence of peripheral edema , chronic venous stasis . NEUROLOGIC patient is awake, alert and oriented 3. . Results 11/19/19 05:32 11/19/19 12:28 Cardiac Enzymes 11/18/19 11/18/19 11/19/19 Range/Units 14:42 14:42 05:32 AST 16 L 17 (17-59) U/L Lactate Dehydrogenase 490 (313-618) U/L Coagulation 11/18/19 11/19/19 11/19/19 Range/Units 14:42 05:32 12:24 PT 102.1 H 108.4 H 102.0 H (9.0-12.0) sec APTT 53.4 H (22.0-30.0) sec CBC 11/18/19 11/19/19 Range/Units 14:42 05:32 WBC 12.3 H 10.1 (3.8-10.6) k/uL RBC 4.28 L 4.25 L (4.30-5.90) m/uL Hgb 12.2 L 12.1 L (13.0-17.5) gm/dL Hct 39.3 39.4 (39.0-53.0) % Plt Count 134 L 125 L (150-450) k/uL Comprehensive Metabolic Panel 11/18/19 11/19/19 11/19/19 Range/Units 14:42 05:32 12:28 Sodium 138 137 139 (137-145) mmol/L Potassium 5.0 5.6 H 5.9 H (3.5-5.1) mmol/L Chloride 104 105 104 (98-107) mmol/L Carbon Dioxide 24 23 26 (22-30) mmol/L BUN 49 H 42 H 42 H (9-20) mg/dL Creatinine 2.98 H 2.33 H 2.13 H (0.66-1.25) mg/dL Glucose 97 116 H 166 H (74-99) mg/dL Calcium 8.8 8.6 8.9 (8.4-10.2) mg/dL AST 16 L 17 (17-59) U/L ALT 12 12 (4-49) U/L Alkaline Phosphatase 88 95 (38-126) U/L Total Protein 6.4 6.5 (6.3-8.2) g/dL Albumin 3.5 3.5 (3.5-5.0) g/dL Current Medications Generic Name Dose Route Start Last Admin Trade Name Freq PRN Reason Stop Dose Admin Albuterol Sulfate 2 puff 11/18/19 20:43 11/19/19 09:04 Ventolin Hfa Inhaler INHALATION 2 puff RT-Q6H PRN Administration Shortness Of Breath Allopurinol 100 mg 11/18/19 22:00 11/18/19 21:25 Zyloprim PO 100 mg HS@2200 ROGER Administration Budesonide/Formoterol Fumarate 2 puff 11/19/19 20:00 Symbicort 160-4.5 Mcg Inhaler INHALATION RT-BID ROGER Clotrimazole 10 mg 11/19/19 11:00 11/19/19 11:25 Mycelex Miranda MUCOUS MEM 10 mg 5XD ROGER Administration Diltiazem HCl 30 mg 11/18/19 22:00 11/19/19 06:58 Cardizem Oral PO 30 mg BID@0700,2200 ROGER Administration Dopamine HCl/Dextrose 800 mg/ 250 mls @ 7.442 mls/hr 11/18/19 16:30 11/18/19 17:19 IV Solution IV 7.442 mls/hr .Q24H ROGER Administration 2.5 MCG/KG/MIN Ceftriaxone Sodium 1 gm/ 50 mls @ 100 mls/hr 11/19/19 09:00 11/19/19 08:34 Sodium Chloride IVPB 100 mls/hr Q24HR ROGER Administration Azithromycin 500 mg/ Sodium 250 mls @ 250 mls/hr 11/18/19 21:30 11/18/19 21:25 Chloride IVPB 250 mls/hr Q24H ROGER Administration Furosemide 100 mg/ Sodium 100 mls @ 5 mls/hr 11/19/19 12:30 11/19/19 14:04 Chloride IV 5 mg/hr .Q20H ROGER 5 mls/hr Administration 5 MG/HR Insulin Aspart 0 unit 11/19/19 12:30 11/19/19 12:01 Novolog SQ 3 unit ACHS ROGER Administration Protocol Methylprednisolone Sodium Succinate 40 mg 11/19/19 00:00 11/19/19 08:35 Solu-Medrol IV 40 mg Q8HR ROGER Administration Metoprolol Tartrate 100 mg 11/19/19 07:30 11/19/19 08:34 Lopressor PO 100 mg BID-W/MEALS ROGER Administration Pantoprazole Sodium 40 mg 11/18/19 18:15 11/19/19 08:34 Protonix IVP 40 mg DAILY ROGER Administration Pravastatin Sodium 20 mg 11/18/19 22:00 11/18/19 21:25 Pravachol PO 20 mg HS@2200 ROGER Administration Intake and Output 11/18/19 11/19/19 11/19/19 22:59 06:59 14:59 Intake Total 319.76 139.52 699.24 Output Total 625 1250 1375 Balance -305.24 -1110.48 -675.76 Intake: IV 319.76 139.52 199.24 0.9 sodium chloride 40 80 80 Azithromycin 500 mg In 250 Sodium Chloride 0.9% 250 ml @ 250 mls/hr IVPB DAILY ROGER Rx#:[id number] Dextrose/Water 1 250ml. 29.76 59.52 59.24 bag @ 2.5 MCG/KG/MIN 7. 442 mls/hr IV .Q24H R[facility]ER with DOPamine DRIP 800 mg Rx#:[id number] Furosemide 100 mg In 10 Sodium Chloride 0.9% 90 ml @ 5 MG/HR 5 mls/hr IV .Q20H ROGER Rx#:[id number] cefTRIAXone 1 gm In 50 Sodium Chloride 0.9% 50 ml @ 100 mls/hr IVPB Q24HR ROGER Rx#:[id number] Oral 500 Output: Urine 625 1250 1375 Other: Voiding Method Indwelling Catheter Indwelling Catheter Indwelling Catheter Weight 158.757 kg 156.8 kg 156.8 kg Patient Weight 11/20/19 06:59 Weight 156.8 kg 11/19/19 05:32 11/19/19 12:28 EKG Interpretations (text) EKG shows atrial fibrillation with moderately rapid ventricular response Assessment and Plan Plan: Assessment and plan #1 acute hypoxic respiratory failure, evidence of congestive heart failure, diastolic acute on chronic and combination of right lower lobe pneumonia with COPD exacerbation. [place]an 19 not detected #2 acute on chronic kidney injury #3 atrial fibrillation with rapid ventricular response, persistent, coagulopathy with an INR greater than 10 #4 hypertension #5 gout #6 sleep apnea Plan Echocardiogram with Doppler study was performed which revealed an ejection fraction of 55-60%, LA is severely dilated, intra-atrial and intraventricular septum intact. Moderate to severe tricuspid regurg with moderate to severe pulmonary hypertension. From cardiology's perspective, we would recommend to continue the patient on current dose of IV Lasix drip along with dopamine drip. Continue metoprolol. We will also check to see regarding coverage for Eliquis, as an alternative to Coumadin. Further recommendations to follow. DNP note has been reviewed, I agree with a documented findings and plan of care. Patient was seen and examined.
[2019-11-19] MEDS: DEXTROSE/WATER 1 250ML.BAG with DOPamine DRIP 800 MG IV SCH ×2 (16:25→22:54)
[2019-11-19 16:39] LABS: Glucose,Whole Blood 146 mg/dL (75-99)
[2019-11-19 18:55] LABS: Calcium 9.2 mg/dL (8.4-10.2); Potassium 5.5 mmol/L (3.5-5.1)
[2019-11-19 20:35] LABS: Glucose,Whole Blood 172 mg/dL (75-99)
[2019-11-19] MEDS: ALLOPURINOL 100 MG TAB PO SCH (20:37)
[2019-11-19] MEDS: PRAVASTATIN SODIUM 20 MG TAB PO SCH (20:37)
[2019-11-19] MEDS: AZITHROMYCIN 500 MG in SODIUM CHLORIDE 0.9% 250 ML IVPB SCH (20:37)
[2019-11-19] MEDS: SYMBICORT 160-4.5 MCG INHALER INHALATION SCH (21:17)
[2019-11-20 04:38] LABS: Basophils % (A) 0 %; Eosinophils % (A) 0 %; HCT 41.5 % (39.0-53.0); HGB 12.5 gm/dL (13.0-17.5); Hypochromasia Moderate; Lymphocytes # (A) 0.3 k/uL (1.0-4.8); Lymphocytes % (A) 2 %; MCV 93.1 fL (80.0-100.0); Mean Platelet Volume 6.9; Monocytes # (A) 0.4 k/uL (0-1.0); Monocytes % (A) 4 %; Neutrophils # (A) 11.8 k/uL (1.3-7.7); Neutrophils % (A) 94 %; Platelet Count 143 k/uL (150-450); RBC 4.45 m/uL (4.30-5.90); RDW 13.9 % (11.5-15.5); WBC 12.6 k/uL (3.8-10.6)
[2019-11-20] MEDS: FUROSEMIDE 100 MG in SODIUM CHLORIDE 0.9% 90 ML IV SCH (04:38)
[2019-11-20 04:45] LABS: INR 2.7 (<1.2)
[2019-11-20 04:48] LABS: Calcium 9.2 mg/dL (8.4-10.2); Potassium 5.6 mmol/L (3.5-5.1)
[2019-11-20] MEDS: CLOTRIMAZOLE TROCHE 10 MG TROCHE MUCOUS MEM SCH ×5 (05:59→23:57)
--- NOTE | 2019-11-20 06:41 | XR ---
EXAMINATION TYPE: XR chest 1V DATE OF EXAM: 11/20/2019 HISTORY: CHF, PNA. REFERENCE: Previous study dated 11/19/2019. FINDINGS: The heart is enlarged. There is improved aeration of both lungs. There continue to be left basilar airspace disease. I suspect a left-sided effusion. IMPRESSION: FAIRLY MARKED IMPROVEMENT IN THE AERATION OF BOTH LUNGS.
[2019-11-20 06:58] LABS: Glucose,Whole Blood 157 mg/dL (75-99)
[2019-11-20] MEDS: METOPROLOL TARTRATE 50 MG TAB PO SCH ×2 (06:59→17:48)
[2019-11-20] MEDS: INSULIN ASPART (NovoLOG) 100 UNIT/ML VIAL SQ SCH ×4 (06:59→20:40)
[2019-11-20] MEDS: DILTIAZEM ORAL 30 MG TAB PO SCH ×2 (06:59→20:43)
[2019-11-20] MEDS: SYMBICORT 160-4.5 MCG INHALER INHALATION SCH (07:50)
[2019-11-20] MEDS: ALBUTEROL HFA INHALER INHALATION PRN (07:50)
[2019-11-20] MEDS: PANTOPRAZOLE 40 MG/10 ML VIAL IVP SCH (08:28)
[2019-11-20] MEDS: methylPREDNISolone SOD SUCCI 40 MG/ML 1 ML VIAL IV SCH ×3 (08:28→23:56)
--- NOTE | 2019-11-20 10:19 | P.PN ---
Subjective Progress Note Date: 11/20/19 This is a 74-year-old gentleman who follows with Dr. Dominguez in the office. He has a known history of chronic persistent atrial fibrillation, hypertension, hyperlipidemia, sleep apnea, GERD, osteoarthritis, chronic edema and anasarca, patient underwent a cardiac catheterization, right sided, in A ugust 2017, there was no evidence at that time of pulmonary hypertension. Presented to the hospital with symptoms of progressively worsening shortness of breath as well as associated cough with productive sputum. Patient was also running a low-grade temperature and was referred to come to the emergency room for further evaluation and treatment by his primary care doctor. Chest x-ray showed moderate interstitial pulmonary edema, with right basilar obesity consistent with pneumonia. Significant picture suggesting COPD and congestive heart failure. BNP level was mildly elevated, INR was 9.7 on admission. Patient had elevated white blood cell and significant worsening renal failure, acute on chronic. Patient continued to be in atrial fibrillation at the time of her examination here he is also on IV antibiotics and IV Lasix at this time. Blood pressure this morning 106/60 with a heart rate in the 90s, respirations 30. Laboratory data from today, white blood cell count 10.1, hemoglobin 12.1, platelet count 125. INR greater than 10 this morning, 9.7 at noon. Sodium 139, potassium 5.9, BUN 42, creatinine 2.1. Patient is currently on IV Lasix drip at 5 mg per hour along with the dopamine drip at 2.5 mcg/kg per hour. He's receiving IV antibiotics along with steroids. 11/20/2019 Patient was seen in follow-up today. She remains on 15 L high flow oxygen with an oxygen saturation of 91%. Vital signs are otherwise stable. Chest x-ray this morning showed marked improvement. Echocardiogram with Doppler showed normal LV systolic function with severe right ventricular enlargement, mild MR, moderate to severe TR and moderate to severe pulmonary hypertension. He remains on a Lasix drip at 5 mg an hour and is diuresing well. His weight is down 3 kg. Labs this morning showed blood cell count 12.6, hemoglobin 12.5, hematocrit 41.5, platelet count 143, INR is down to 2.7, BUN 46, creatinine 2.03, potassium 5.6. Objective - Vital Signs Vital signs: Vital Signs Temp 97.9 F 11/20/19 08:00 Pulse 86 05/03/20 08:30 Resp 21 11/20/19 08:30 BP 98/69 11/20/19 08:30 Pulse Ox 91 L 11/20/19 08:30 Intake & Output 11/19/19 11/20/19 11/20/19 18:59 06:59 18:59 Intake Total 788.84 591.633 22.4 Output Total 2124 2109 250 Balance -1336.16 -1518.367 -227.6 Weight 156.8 kg 153.7 kg Intake: IV 288.84 518.8 22.4 0.9 sodium chloride 120 120 10 Azithromycin 500 mg In 250 Sodium Chloride 0.9% 250 ml @ 250 mls/hr IVPB DAILY [facility] Rx#:[id number] Dextrose/Water 1 250ml. 88.84 88.8 7.4 bag @ 2.5 MCG/KG/MIN 7. 442 mls/hr IV .Q24H [facility] with DOPamine DRIP 800 mg Rx#:[id number] Furosemide 100 mg In 30 60 5 Sodium Chloride 0.9% 90 ml @ 5 MG/HR 5 mls/hr IV .Q20H [facility] Rx#:[id number] cefTRIAXone 1 gm In 50 Sodium Chloride 0.9% 50 ml @ 100 mls/hr IVPB Q24HR [facility] Rx#:[id number] Intake, IV Titration 72.833 Amount Furosemide 100 mg In 72.833 Sodium Chloride 0.9% 90 ml @ 5 MG/HR 5 mls/hr IV .Q20H [facility] Rx#:[id number] Oral 500 Output: Urine 2124 2109 250 Other: Voiding Method Indwelling Catheter Indwelling Catheter - Exam PHYSICAL EXAMINATION: GENERAL: 74-year-old gentleman in no acute distress at the time of my examination HEENT: Head is atraumatic, normocephalic. Pupils equal, round. Neck is supple. There is elevated jugular venous pressure. HEART EXAMINATION: Heart sounds irregularly irregular, S1 and S2 with a systolic murmur. CHEST EXAMINATION: Lungs revealed wheezing throughout. No chest wall tenderness is noted on palpation or with deep breathing. ABDOMEN: Soft, obese, nontender. Bowel sounds are heard. No organomegaly noted. EXTREMITIES: 2+ peripheral pulses with evidence of 2+ peripheral edema and no calf tenderness noted. NEUROLOGIC patient is awake, alert and oriented x3. . - Labs CBC & Chem 7: 11/20/19 04:11 11/20/19 04:11 Labs: Abnormal Lab Results - Last 24 Hours (Table) 11/19/19 11/19/19 11/19/19 Range/Units 11:27 12:24 12:28 WBC (3.8-10.6) k/uL Hgb (13.0-17.5) gm/dL MCHC (31.0-37.0) g/dL Plt Count (150-450) k/uL Neutrophils # (1.3-7.7) k/uL Lymphocytes # (1.0-4.8) k/uL PT 102.0 H (9.0-12.0) sec INR 9.7 H* (<1.2) Potassium 5.9 H (3.5-5.1) mmol/L BUN 42 H (9-20) mg/dL Creatinine 2.13 H (0.66-1.25) mg/dL Glucose 166 H (74-99) mg/dL POC Glucose (mg/dL) 165 H (75-99) mg/dL 11/19/19 11/19/19 11/19/19 Range/Units 16:37 18:00 20:33 WBC (3.8-10.6) k/uL Hgb (13.0-17.5) gm/dL MCHC (31.0-37.0) g/dL Plt Count (150-450) k/uL Neutrophils # (1.3-7.7) k/uL Lymphocytes # (1.0-4.8) k/uL PT (9.0-12.0) sec INR (<1.2) Potassium 5.5 H (3.5-5.1) mmol/L BUN 43 H (9-20) mg/dL Creatinine 2.14 H (0.66-1.25) mg/dL Glucose 154 H (74-99) mg/dL POC Glucose (mg/dL) 146 H 172 H (75-99) mg/dL 11/20/19 11/20/19 11/20/19 Range/Units 04:11 04:11 04:11 WBC 12.6 H (3.8-10.6) k/uL Hgb 12.5 L (13.0-17.5) gm/dL MCHC 30.0 L (31.0-37.0) g/dL Plt Count 143 L (150-450) k/uL Neutrophils # 11.8 H (1.3-7.7) k/uL Lymphocytes # 0.3 L (1.0-4.8) k/uL PT 26.0 H (9.0-12.0) sec INR 2.7 H (<1.2) Potassium 5.6 H (3.5-5.1) mmol/L BUN 46 H (9-20) mg/dL Creatinine 2.03 H (0.66-1.25) mg/dL Glucose 145 H (74-99) mg/dL POC Glucose (mg/dL) (75-99) mg/dL 11/20/19 Range/Units 06:56 WBC (3.8-10.6) k/uL Hgb (13.0-17.5) gm/dL MCHC (31.0-37.0) g/dL Plt Count (150-450) k/uL Neutrophils # (1.3-7.7) k/uL Lymphocytes # (1.0-4.8) k/uL PT (9.0-12.0) sec INR (<1.2) Potassium (3.5-5.1) mmol/L BUN (9-20) mg/dL Creatinine (0.66-1.25) mg/dL Glucose (74-99) mg/dL POC Glucose (mg/dL) 157 H (75-99) mg/dL Microbiology - Last 24 Hours (Table) 11/18/19 14:42 Blood Culture - Preliminary Blood No Growth after 24 hours Assessment and Plan Assessment: #1 acute hypoxic respiratory failure, evidence of congestive heart failure, diastolic acute on chronic and combination of right lower lobe pneumonia with COPD exacerbation. Coban 19 not detected #2 acute on chronic kidney injury #3 atrial fibrillation with rapid ventricular response, persistent, coagulopathy with an INR greater than 10 #4 hypertension #5 gout #6 sleep apnea Plan: From cardiology we recommend to continue current dose of IV Lasix drip. Continue metoprolol. We will check coverage for aliquots as an alternative to Coumadin. We will continue to follow the patient provide further recommendations accordingly. [employer] TECHNICIAN note has been reviewed, I agree with a documented findings and plan of care. Patient was seen and examined.
--- NOTE | 2019-11-20 10:31 | P.PN ---
Subjective Progress Note Date: 11/20/19 74-year-old male one of my office patient with known for long time with past medical history of A. fib with RVR, congestive heart failure, chronic edema and chronic anasarca, history of obstructive sleep apnea hyperlipidemia and hyperglycemia who called the office today was to be seen because of worsening dyspnea and shortness of breath with minimum exertion with cough productive DrNena romero patient pulse ox has been low and has been having significant tachycardia and tachypnea. With low-grade temperature with suspicion for Covid 19 patient was diverted to the emergency department where was seen and evaluated chest x- ray showed moderate interstitial pulmonary edema based on congestive heart failure with slight right basilar opacity consistent with pneumonia with significant picture of COPD and CHF. His BNP was mildly elevated. His INR was 9.7 with no change in dose in the lost few weeks patient INR has been running close to 2 normally. Patient also had mildly elevated white blood cell and significant worsening kidney failure with acute kidney failure on chronic kidney disease. He is still in A. fib with pulse rate running between 1910. Patient was giving 1 dose of Rocephin IV we'll continue furosemide IV 20 mg every 12 hours will be increased up to 40 mg twice a day attempt to start him on dopamine renal dose with a blood pressure below patient was hospitalized at this point. He is at high risk for the Covid 19 despite his test be negative the marker with Covid 19 were low probability patient will be kept on anticoagulation his blood is thin at this point but no reason for any other treatment at this point. We'll consult pulmonary and cardiology and admit patient to the hospital. 11/18: Patient remains in the ICU and on Dopamine gtt. INR is greater than 10. Patient received 1 dose of vitamin K this morning.Hemoglobin is at 12.1. Greco catheter in place draining blood-tinged urine. Patient is requesting to have Greco removed but we will plan to remove this tomorrow. He denies any blood in his stool. No nosebleeds. A repeat BUN 42 and creatinine 2.33 with potassium 5.6. Repeat chest x-ray reveals worsening changes of heart failure. He is currently on Lasix 20 mg IV every 12 hours and diuresing well. Patient is on IV steroids and NovoLog scale will be added. Symbicort also added. He does state his breathing is significantly improved since yesterday. Patient is followed by pulmonary medicine and cardiology. 11/19: Patient remains in the intensive care unit. He has been afebrile, heart rate in the 90s, blood pressure 107/76, pulse ox 90% on 15 L nasal cannula. Patient has been evaluated by cardiology. Echocardiogram revealed ejection fraction of 55-60%, LA is severely dilated, intra-atrial and intraventricular septum intact. Moderate to severe tricuspid regurg with moderate to severe pulmonary hypertension. Recommendations to continue dopamine drip and metoprolol, check coverage for Eliquis as an alternative to Coumadin. The patient has been evaluated by Dr. Murray and he has transitioned IV Lasix to Lasix drip, continue dopamine, he repeated a dose of vitamin K. Plan is to continue high flow nasal cannula 15 L titrate if possible and BiPAP during the night or during the day as needed. Repeat blood work reveals INR is 2.7. WBC 12.6, hemoglobin 12.5, platelet count 143. Sodium 137, potassium 5.9, chloride 102, CO2 28, BUN 46 and creatinine 2.03. Patient has been diuresing well and weight is down 5 kg. He denies shortness of breath at rest. He is reaching 15 ML's on incentive spirometry. This hematuria has cleared. Objective - Vital Signs Vital signs: Vital Signs Temp 97.8 F 11/20/19 00:00 Pulse 94 11/20/19 07:00 Resp 18 11/20/19 07:00 BP 107/76 11/20/19 07:00 Pulse Ox 90 L 11/20/19 07:00 Intake & Output 11/19/19 11/20/19 11/20/19 18:59 06:59 18:59 Intake Total 788.84 591.633 22.4 Output Total 2125 2110 250 Balance -1336.16 -1518.367 -227.6 Weight 156.8 kg 153.7 kg Intake: IV 288.84 518.8 22.4 0.9 sodium chloride 120 120 10 Azithromycin 500 mg In 250 Sodium Chloride 0.9% 250 ml @ 250 mls/hr IVPB DAILY [facility] Rx#:[id number] Dextrose/Water 1 250ml. 88.84 88.8 7.4 bag @ 2.5 MCG/KG/MIN 7. 442 mls/hr IV .Q24H [facility] with DOPamine DRIP 800 mg Rx#:[id number] Furosemide 100 mg In 30 60 5 Sodium Chloride 0.9% 90 ml @ 5 MG/HR 5 mls/hr IV .Q20H [facility] Rx#:[id number] cefTRIAXone 1 gm In 50 Sodium Chloride 0.9% 50 ml @ 100 mls/hr IVPB Q24HR [facility] Rx#:[id number] Intake, IV Titration 72.833 Amount Furosemide 100 mg In 72.833 Sodium Chloride 0.9% 90 ml @ 5 MG/HR 5 mls/hr IV .Q20H [facility] Rx#:[id number] Oral 500 Output: Urine 2125 2110 250 Other: Voiding Method Indwelling Catheter Indwelling Catheter - Exam Review of Systems CONSTITUTIONAL: Morbidly obese. Denies fever, denies chills. EYES: No icterus sclerae, no conjunctivitis. EARS, NOSE, MOUTH, THROAT, and FACE: No sore throat, lymphadenopathy, carotid bruits or deformity. RESPIRATORY: Positive shortness of breath cough and wheezes. CARDIOVASCULAR: Positive PND orthopnea palpitation positive increased edema no sign of angina. GASTROINTESTINAL: No Abd pain, Nausea or vomiting, no Diarrhea or constipation, No GI Bleed, no distention or masses. GENITOURINARY: Positive clearing Hematuria- or UTI, no kidney stones. Slight decrease in urine output. INTEGUMENT/BREAST: Negative for any muscular injury with mild osteoarthritis.. And mild myalgia. HEMATOLOGIC/LYMPHATIC: Negative purpura. MUSCULOSKELTAL: Negative for Myalgia or arthralgia. NEURLOGICAL: No LOC, Sz or syncope, blurred vision dizziness or abnormality. BEHAVIORAL/PSYCH: Negative. ENDOCRINE: Negative. Physical examination General Appearance: Alert, cooperative,no respiratory distress, appears stated age. Morbidly obese Neck HEENT: Supple, no lymphadenopathy, no thyroid enlargement, no carotid bruits. Lungs: Decreased breath some bilaterally with fine rhonchibilateral bases. Chest Wall: Decrease expansion with deep inspiration no tenderness and no deformity was found on exam, no costochondral pain or discomfort. Heart: Irregular rate and rhythm, S1, S2 positive this 3 positive JVD with systolic murmur. Back: Symmetric, no curvature, ROM normal, no CVA tenderness. Abdomen: Soft, non-tender, bowel sounds active all four quadrants, no masses, no organomegaly.Greco catheter with clear konrad urine Extremities: Significant edema with anasarca and slight discoloration from the knee down with trace edema decreased pulse and dorsalis pedis bilaterally. Pulses: 2+ and symmetric. Skin: Skin color, texture, tugor normal, no rashes or lesions. Neurologic: Alert oriented x3 cranial nerves II through XII intact, no motor deficit, no abnormal balance or gait. - Labs CBC & Chem 7: 11/20/19 04:11 11/20/19 04:11 Labs: Abnormal Lab Results - Last 24 Hours (Table) 11/19/19 11/19/19 11/19/19 Range/Units 05:32 11:27 12:24 WBC (3.8-10.6) k/uL Hgb (13.0-17.5) gm/dL MCHC (31.0-37.0) g/dL Plt Count (150-450) k/uL Neutrophils # (1.3-7.7) k/uL Lymphocytes # (1.0-4.8) k/uL PT 102.0 H (9.0-12.0) sec INR 9.7 H* (<1.2) Potassium (3.5-5.1) mmol/L BUN (9-20) mg/dL Creatinine (0.66-1.25) mg/dL Glucose (74-99) mg/dL POC Glucose (mg/dL) 165 H (75-99) mg/dL Creatine Kinase 40 L (55-170) U/L 11/19/19 11/19/19 11/19/19 Range/Units 12:28 16:37 18:00 WBC (3.8-10.6) k/uL Hgb (13.0-17.5) gm/dL MCHC (31.0-37.0) g/dL Plt Count (150-450) k/uL Neutrophils # (1.3-7.7) k/uL Lymphocytes # (1.0-4.8) k/uL PT (9.0-12.0) sec INR (<1.2) Potassium 5.9 H 5.5 H (3.5-5.1) mmol/L BUN 42 H 43 H (9-20) mg/dL Creatinine 2.13 H 2.14 H (0.66-1.25) mg/dL Glucose 166 H 154 H (74-99) mg/dL POC Glucose (mg/dL) 146 H (75-99) mg/dL Creatine Kinase (55-170) U/L 11/19/19 11/20/19 11/20/19 Range/Units 20:33 04:11 04:11 WBC 12.6 H (3.8-10.6) k/uL Hgb 12.5 L (13.0-17.5) gm/dL MCHC 30.0 L (31.0-37.0) g/dL Plt Count 143 L (150-450) k/uL Neutrophils # 11.8 H (1.3-7.7) k/uL Lymphocytes # 0.3 L (1.0-4.8) k/uL PT 26.0 H (9.0-12.0) sec INR 2.7 H (<1.2) Potassium (3.5-5.1) mmol/L BUN (9-20) mg/dL Creatinine (0.66-1.25) mg/dL Glucose (74-99) mg/dL POC Glucose (mg/dL) 172 H (75-99) mg/dL Creatine Kinase (55-170) U/L 11/20/19 11/20/19 Range/Units 04:11 06:56 WBC (3.8-10.6) k/uL Hgb (13.0-17.5) gm/dL MCHC (31.0-37.0) g/dL Plt Count (150-450) k/uL Neutrophils # (1.3-7.7) k/uL Lymphocytes # (1.0-4.8) k/uL PT (9.0-12.0) sec INR (<1.2) Potassium 5.6 H (3.5-5.1) mmol/L BUN 46 H (9-20) mg/dL Creatinine 2.03 H (0.66-1.25) mg/dL Glucose 145 H (74-99) mg/dL POC Glucose (mg/dL) 157 H (75-99) mg/dL Creatine Kinase (55-170) U/L Microbiology - Last 24 Hours (Table) 11/18/19 14:42 Blood Culture - Preliminary Blood No Growth after 24 hours Assessment and Plan Plan: 1. Acute hypoxic respiratory failure secondary to a combination of acute on chronic diastolic heart failure, COPD exacerbation, right-sided pneumonia. acute respiratory failure: Combination of CHF exacerbation, COPD exacerbation, pulmonary edema and right-sided pneumonia. Covered 19 was ruled out at this point. Continue high flow nasal cannula and BiPAP at nighttime and as needed. Consults with pulmonary medicine and cardiology appreciated. 2. Acute exacerbation of diastolic heart failure. Continue dopamine, Lasix drip. Monitor I&O, daily weights, electrolyte and renal function. 3. Right lower lobe pneumonia, possible gram-negative pneumonia. Continue ant ibiotics 4. COPD exacerbation: Continue patient on Ventolin and Symbicort, IV Solu- Medrol. 5. Acute kidney injury with stage III chronic kidney disease: Patient baseline creatinine was around 1.4 that significantly elevated with decrease urine output at this point with hypotension and hypoperfusion, patient will be watch closely watch his urine output we'll consult nephrology if kidney function remain decline. 6. COVID-19 was ruled out. 7. A. fib with RVR, chronic atrial fibrillation. Continue metoprolol. Cardiology is checking coverage for eliquis versus Coumadin. 8. Hypertension. Continue Lopressor for now. Has been on Benzapril along with Cardizem metoprolol and spironolactone. 9. Hypercoagulopathy: Most likely the interaction between Bactrim DS and warfarin not a clear who put patient on Bactrim DS at this point could be walk in the clinic was not prescribed in my office patient has not been seen in the last 6 weeks. We will hold Bactrim DS. INR is now therapeutic 10. Chronic gout: Patient has been on Zyloprim and colchicine. 11 GI prophylaxis: Patient will be kept on PPI with pantoprazole 40 mg daily. 12 DVT prophylaxis: Patient is on anticoagulation and his hyper coagulopathy at this point we will hold his warfarin temporary. 13. Secondary moderate pulmonary hypertension with systolic pressure of 48 secondary to obstructive sleep apnea, unable to tolerate CPAP . CODE status: Full code. Discharge plan: To be determined Impression and plan of care have been directed as dictated by the signing physician. Linda Maloney nurse practitioner acting as scribe for signing physician.
[2019-11-20 12:01] LABS: Glucose,Whole Blood 121 mg/dL (75-99)
--- NOTE | 2019-11-20 12:55 | P.PN ---
Subjective Progress Note Date: 11/20/19 Principal diagnosis: Acute hypoxic respiratory failure Acute diastolic heart failure Severe pulmonary hypertension likely multifactorial including an element of obstructive sleep apnea Chronic renal failure Hyperkalemia Elevated PT/INR/coagulopathy on Coumadin currently on hold Morbid obesity Purulent tracheobronchitis Remote history of smoking Covid 19 negative 11/20/2019, patient seen eval examined in ICU still on 100% oxygen with exertion is 91-92%, patient remains on dopamine drip 2.5 mics, also on the Lasix drip 5 mg an hour, patient is putting out adequate urine chest x-ray reviewed today appears slightly better, patient is still left cough, productive sputum remains on broad-spectrum antibiotics sputum culture have been obtained and results are pending, patient remains afebrile, cardiovascular services following, for A. fib patient is on high-dose beta jacinto, patient has severe pulmonary hypertension have compared to echocardiogram performed in 2018 1 moderate, we'll start patient on theRevatio 20 mg 3 times a day, patient continued to refuse CPAP machine, INR has been therapeutic range is now will consider giving Eliquis for anticoagulation for A. fib, to be started from tomorrow, labs reviewed white cell count is 12,600 likely some affect from the steroids, patient remains high 5.6, with BUN/creatinine of 46 and 2.03, care plan discussed with the staff at length, will stop dopamine after 24 hours and possibly Lasix drip as well critic al care time 35 minutes This is a 74-year-old male seen eval examined in ICU, patient has progressive shortness of breath and also lower extremity swelling for the last 2 weeks denies any fever does have intermittent cough with yellowish sputum production patient has been advised by primary service to be evaluated in the emergency department, echocardiogram performed this morning revealed normal LV function with ejection fraction of 55% along with severe LVH right ventricle and left atria dilated size of left atria is more than 40 mL per meter square, patient noted to have severe pulmonary hypertension along with severe tricuspid regurgitation I have discussed the patient to use the CPAP/BiPAP machine he has declined his BNP is 3690, INR is over 10, coated 19 negative white cell count is 12,000 potassium 5.9. Creatinine 42/2.13 down from 49-0.98 he has minimal output he is on 2.5 mics of dopamine and 20 mg every 12 furosemide he has bilateral lower extremity +3 edema, patient is also getting IV steroids breathing treatments and antibiotics Objective - Vital Signs Vital signs: Vital Signs Temp 97.9 F 11/20/19 08:00 Pulse 73 11/20/19 10:30 Resp 30 H 11/20/19 10:30 BP 95/70 11/20/19 10:30 Pulse Ox 93 L 11/20/19 10:30 Intake & Output 11/19/19 11/20/19 11/20/19 18:59 06:59 18:59 Intake Total 788.84 591.633 89.6 Output Total 2124 2109 850 Balance -1336.16 -1518.367 -760.4 Weight 156.8 kg 153.7 kg Intake: IV 288.84 518.8 89.6 0.9 sodium chloride 120 120 40 Azithromycin 500 mg In 250 Sodium Chloride 0.9% 250 ml @ 250 mls/hr IVPB DAILY [facility] Rx#:[id number] Dextrose/Water 1 250ml. 88.84 88.8 29.6 bag @ 2.5 MCG/KG/MIN 7. 442 mls/hr IV .Q24H [facility] with DOPamine DRIP 800 mg Rx#:[id number] Furosemide 100 mg In 30 60 20 Sodium Chloride 0.9% 90 ml @ 5 MG/HR 5 mls/hr IV .Q20H [facility] Rx#:[id number] cefTRIAXone 1 gm In 50 Sodium Chloride 0.9% 50 ml @ 100 mls/hr IVPB Q24HR [facility] Rx#:[id number] Intake, IV Titration 72.833 Amount Furosemide 100 mg In 72.833 Sodium Chloride 0.9% 90 ml @ 5 MG/HR 5 mls/hr IV .Q20H [facility] Rx#:[id number] Oral 500 Output: Urine 2124 Other: Voiding Method Indwelling Catheter Indwelling Catheter Indwelling Catheter - Exam - Constitutional General appearance: disheveled, mild distress, morbidly obese - EENT Eyes: EOMI, PERRLA Ears: bilateral: normal - Neck Carotids: bilateral: upstroke normal Thyroid: bilateral: normal size - Respiratory Respiratory: bilateral: diminished, rales, wheezing, negative: CTA, dullness - Cardiovascular Rhythm: regular Heart sounds: normal: S1, S2 - Gastrointestinal General gastrointestinal: normal bowel sounds, soft - Integumentary Integumentary: normal turgor - Neurologic Neurologic: CNII-XII intact - Musculoskeletal Musculoskeletal: gait normal, generalized weakness, strength equal bilaterally - Psychiatric Psychiatric: A&O x's 3, appropriate affect, intact judgment & insight - Labs CBC & Chem 7: 11/20/19 04:11 11/20/19 04:11 Labs: Abnormal Lab Results - Last 24 Hours (Table) 11/19/19 11/19/19 11/19/19 Range/Units 12:24 12:28 16:37 WBC (3.8-10.6) k/uL Hgb (13.0-17.5) gm/dL MCHC (31.0-37.0) g/dL Plt Count (150-450) k/uL Neutrophils # (1.3-7.7) k/uL Lymphocytes # (1.0-4.8) k/uL PT 102.0 H (9.0-12.0) sec INR 9.7 H* (<1.2) Potassium 5.9 H (3.5-5.1) mmol/L BUN 42 H (9-20) mg/dL Creatinine 2.13 H (0.66-1.25) mg/dL Glucose 166 H (74-99) mg/dL POC Glucose (mg/dL) 146 H (75-99) mg/dL 11/19/19 11/19/19 11/20/19 Range/Units 18:00 20:33 04:11 WBC (3.8-10.6) k/uL Hgb (13.0-17.5) gm/dL MCHC (31.0-37.0) g/dL Plt Count (150-450) k/uL Neutrophils # (1.3-7.7) k/uL Lymphocytes # (1.0-4.8) k/uL PT 26.0 H (9.0-12.0) sec INR 2.7 H (<1.2) Potassium 5.5 H (3.5-5.1) mmol/L BUN 43 H (9-20) mg/dL Creatinine 2.14 H (0.66-1.25) mg/dL Glucose 154 H (74-99) mg/dL POC Glucose (mg/dL) 172 H (75-99) mg/dL 11/20/19 11/20/19 11/20/19 Range/Units 04:11 04:11 06:56 WBC 12.6 H (3.8-10.6) k/uL Hgb 12.5 L (13.0-17.5) gm/dL MCHC 30.0 L (31.0-37.0) g/dL Plt Count 143 L (150-450) k/uL Neutrophils # 11.8 H (1.3-7.7) k/uL Lymphocytes # 0.3 L (1.0-4.8) k/uL PT (9.0-12.0) sec INR (<1.2) Potassium 5.6 H (3.5-5.1) mmol/L BUN 46 H (9-20) mg/dL Creatinine 2.03 H (0.66-1.25) mg/dL Glucose 145 H (74-99) mg/dL POC Glucose (mg/dL) 157 H (75-99) mg/dL 11/20/19 Range/Units 11:59 WBC (3.8-10.6) k/uL Hgb (13.0-17.5) gm/dL MCHC (31.0-37.0) g/dL Plt Count (150-450) k/uL Neutrophils # (1.3-7.7) k/uL Lymphocytes # (1.0-4.8) k/uL PT (9.0-12.0) sec INR (<1.2) Potassium (3.5-5.1) mmol/L BUN (9-20) mg/dL Creatinine (0.66-1.25) mg/dL Glucose (74-99) mg/dL POC Glucose (mg/dL) 121 H (75-99) mg/dL Microbiology - Last 24 Hours (Table) 11/19/19 18:12 Sputum Culture - Preliminary Sputum 11/18/19 14:42 Blood Culture - Preliminary Blood No Growth after 24 hours Assessment and Plan Assessment: Acute hypoxic respiratory failure Acute diastolic heart failure Severe pulmonary hypertension likely multifactorial including an element of obstructive sleep apnea Chronic renal failure Hyperkalemia Elevated PT/INR/coagulopathy on Coumadin currently on hold Morbid obesity Purulent tracheobronchitis Remote history of smoking Covid 19 negative Plan: Agree with broad-spectrum antibiotics bronchodilators and IV steroids for now We will continue dopamine ip 2.5 g along with Lasix strip 5 mg an hour and gently do continues dialysis Continue oxygen on 15 L oxygen was titrated down as tolerated Start patient on oral anticoagulation starting tomorrow possibly Eliquis Trial of a Revatio Patient will need BiPAP each night and when necessary during the day currently declining we'll continue to communicate with the patient Further recommendations pending plan of care as per clinical response of the patient
[2019-11-20] MEDS: SILDENAFIL 20 MG TAB PO SCH ×2 (15:40→20:47)
[2019-11-20] MEDS: ALBUTEROL HFA INHALER INHALATION SCH ×2 (16:20→20:45)
[2019-11-20 16:41] LABS: Glucose,Whole Blood 148 mg/dL (75-99)
[2019-11-20] MEDS ORDERED: BUDESONIDE 0.5 MG/2 ML NEBU INHALATION SCH (20:00)
[2019-11-20 20:19] LABS: Glucose,Whole Blood 155 mg/dL (75-99)
[2019-11-20] MEDS: PRAVASTATIN SODIUM 20 MG TAB PO SCH (20:43)
[2019-11-20] MEDS: ALLOPURINOL 100 MG TAB PO SCH (20:43)
[2019-11-20] MEDS: AZITHROMYCIN 500 MG in SODIUM CHLORIDE 0.9% 250 ML IVPB SCH (20:44)
[2019-11-20] MEDS: FLUTICASONE 110 MCG INHALER INHALATION SCH (20:45)
[2019-11-21] MEDS: FUROSEMIDE 100 MG in SODIUM CHLORIDE 0.9% 90 ML IV SCH (00:01)
[2019-11-21 04:57] LABS: HGB 13.3 gm/dL (13.0-17.5); Hypochromasia Moderate; MCH 28.5 pg (25.0-35.0); Platelet Count 174 k/uL (150-450); RBC 4.67 m/uL (4.30-5.90); RDW 13.6 % (11.5-15.5); WBC 17.5 k/uL (3.8-10.6)
[2019-11-21 05:11] LABS: INR 1.6 (<1.2); Prothrombin Time 15.8 sec (9.0-12.0)
[2019-11-21 05:22] LABS: Albumin 3.8 g/dL (3.5-5.0); Calcium 9.4 mg/dL (8.4-10.2); Potassium 5.3 mmol/L (3.5-5.1); Total Bilirubin 0.5 mg/dL (0.2-1.3); Total Protein 7.1 g/dL (6.3-8.2)
[2019-11-21] MEDS: CLOTRIMAZOLE TROCHE 10 MG TROCHE MUCOUS MEM SCH ×4 (05:35→21:31)
[2019-11-21 06:34] LABS: Glucose,Whole Blood 146 mg/dL (75-99)
[2019-11-21] MEDS: METOPROLOL TARTRATE 50 MG TAB PO SCH ×2 (06:41→17:29)
[2019-11-21] MEDS: INSULIN ASPART (NovoLOG) 100 UNIT/ML VIAL SQ SCH ×4 (06:41→21:31)
[2019-11-21] MEDS: DILTIAZEM ORAL 30 MG TAB PO SCH ×2 (06:41→21:29)
--- NOTE | 2019-11-21 07:19 | XR ---
EXAMINATION TYPE: XR chest 1V DATE OF EXAM: 11/21/2019 COMPARISON: 11/20/2019 HISTORY: Congestive heart failure or pneumonia TECHNIQUE: Single frontal view of the chest is obtained. FINDINGS: There is an enlarged cardiomediastinal silhouette. Trace left pleural effusion blunts the costophrenic angle. There is improved aeration of the left lung base comparison the prior. Reticular opacity at the right lung base remains. Lung apices are well aerated. Moderate degenerative change of the spine. IMPRESSION: Continued improvement of the retrocardiac opacity and trace left pleural effusion. Retic ular right basilar opacity likely relates to atelectasis.
[2019-11-21] MEDS: ALBUTEROL HFA INHALER INHALATION SCH ×4 (07:22→19:33)
[2019-11-21] MEDS: FLUTICASONE 110 MCG INHALER INHALATION SCH ×2 (07:22→19:33)
[2019-11-21] MEDS: methylPREDNISolone SOD SUCCI 40 MG/ML 1 ML VIAL IV SCH ×2 (09:10→21:31)
[2019-11-21] MEDS: PANTOPRAZOLE 40 MG/10 ML VIAL IVP SCH (09:51)
[2019-11-21] MEDS: SILDENAFIL 20 MG TAB PO SCH ×3 (09:54→21:29)
--- NOTE | 2019-11-21 09:57 | P.PN ---
Subjective Progress Note Date: 11/21/19 Principal diagnosis: Acute hypoxic respiratory failure Acute diastolic heart failure Severe pulmonary hypertension likely multifactorial including an element of obstructive sleep apnea Chronic renal failure Hyperkalemia Elevated PT/INR/coagulopathy on Coumadin currently on hold Morbid obesity Purulent tracheobronchitis Remote history of smoking Covid 19 negative 11/21/2019, patient seen eval examined in the Rounds labs reviewed medications reviewed remains on dopamine drip 2.5 mics Lasix is being discontinued, patient is making good amount of urine chest x-ray reviewed today shows improvement, infiltrates or better, patient have diuresed more than 6 L, swelling in the lower extremity improve, shortness of breath is improved oxygen is down to 5 L nasal cannula patient is tolerating Revatio very well, sitting upright in the bed, labs today have been reviewed white cell count is 7500 due to steroids, PT/INR is in subtherapeutic range however patient was started on oral Eliquis, potassium is improved to 5.3, beer and is slightly up creatinine continued to im prove today's 56/1.91, GFR improved to 40 from 27 at the time admission, sputum culture and blood culture have been negative, will lowered her dose of Solu- Medrol critical care time spent 35 minutes 11/20/2019, patient seen eval examined in ICU still on 100% oxygen with exertion is 91-92%, patient remains on dopamine drip 2.5 mics, also on the Lasix drip 5 mg an hour, patient is putting out adequate urine chest x-ray reviewed today appears slightly better, patient is still left cough, productive sputum remains on broad-spectrum antibiotics sputum culture have been obtained and results are pending, patient remains afebrile, cardiovascular services following, for A. fib patient is on high-dose beta jacinto, patient has severe pulmonary hypertension have compared to echocardiogram performed in 2018 1 moderate, we'll start patient on theRevatio 20 mg 3 times a day, patient continued to refuse CPAP machine, INR has been therapeutic range is now will consider giving Eliquis for anticoagulation for A. fib, to be started from tomorrow, labs reviewed white cell count is 12,600 likely some affect from the steroids, patient remains high 5.6, with BUN/creatinine of 46 and 2.03, care plan discussed with the staff at length, will stop dopamine after 24 hours and possibly Lasix drip as well cr itical care time 35 minutes This is a 74-year-old male seen eval examined in ICU, patient has progressive shortness of breath and also lower extremity swelling for the last 2 weeks denies any fever does have intermittent cough with yellowish sputum production patient has been advised by primary service to be evaluated in the emergency department, echocardiogram performed this morning revealed normal LV function with ejection fraction of 55% along with severe LVH right ventricle and left atria dilated size of left atria is more than 40 mL per meter square, patient noted to have severe pulmonary hypertension along with severe tricuspid regurgitation I have discussed the patient to use the CPAP/BiPAP machine he has declined his BNP is 3690, INR is over 10, coated 19 negative white cell count is 12,000 potassium 5.9. Creatinine 42/2.13 down from 49-0.98 he has minimal output he is on 2.5 mics of dopamine and 20 mg every 12 furosemide he has bilateral lower extremity +3 edema, patient is also getting IV steroids breathing treatments and antibiotics Objective - Vital Signs Vital signs: Vital Signs Temp 97.7 F 11/21/19 08:00 Pulse 79 11/21/19 09:00 Resp 16 11/21/19 09:00 BP 97/66 11/21/19 09:00 Pulse Ox 94 L 11/21/19 09:00 Intake & Output 11/20/19 11/21/19 11/21/19 18:59 06:59 18:59 Intake Total 268.8 365.717 44.8 Output Total 2100 1615 450 Balance -1831.2 -1249.283 -405.2 Weight 152.1 kg Intake: IV 268.8 268.8 44.8 0.9 sodium chloride 120 120 20 Dextrose/Water 1 250ml. 88.8 88.8 14.8 bag @ 2.5 MCG/KG/MIN 7. 442 mls/hr IV .Q24H [facility] with DOPamine DRIP 800 mg Rx#:[id number] Furosemide 100 mg In 60 60 10 Sodium Chloride 0.9% 90 ml @ 5 MG/HR 5 mls/hr IV .Q20H [facility] Rx#:[id number] Intake, IV Titration 96.917 Amount Furosemide 100 mg In 96.917 Sodium Chloride 0.9% 90 ml @ 5 MG/HR 5 mls/hr IV .Q20H [facility] Rx#:[id number] Output: Urine 2100 1615 450 Other: Voiding Method Indwelling Catheter Indwelling Catheter Indwelling Catheter - Exam - Constitutional General appearance: disheveled, mild distress, morbidly obese - EENT Eyes: EOMI, PERRLA Ears: bilateral: normal - Neck Carotids: bilateral: upstroke normal Thyroid: bilateral: normal size - Respiratory Respiratory: bilateral: diminished, rales, wheezing, negative: CTA, dullness - Cardiovascular Rhythm: regular Heart sounds: normal: S1, S2 - Gastrointestinal General gastrointestinal: normal bowel sounds, soft - Integumentary Integumentary: normal turgor - Neurologic Neurologic: CNII-XII intact - Musculoskeletal Musculoskeletal: gait normal, generalized weakness, strength equal bilaterally - Psychiatric Psychiatric: A&O x's 3, appropriate affect, intact judgment & insight - Labs CBC & Chem 7: 11/21/19 04:30 11/21/19 04:30 Labs: Abnormal Lab Results - Last 24 Hours (Table) 11/20/19 11/20/19 11/20/19 Range/Units 11:59 16:39 20:17 WBC (3.8-10.6) k/uL PT (9.0-12.0) sec INR (<1.2) Potassium (3.5-5.1) mmol/L BUN (9-20) mg/dL Creatinine (0.66-1.25) mg/dL Glucose (74-99) mg/dL POC Glucose (mg/dL) 121 H 148 H 155 H (75-99) mg/dL 11/21/19 11/21/19 11/21/19 Range/Units 04:30 04:30 04:30 WBC 17.5 H (3.8-10.6) k/uL PT 15.8 H (9.0-12.0) sec INR 1.6 H (<1.2) Potassium 5.3 H (3.5-5.1) mmol/L BUN 56 H (9-20) mg/dL Creatinine 1.91 H (0.66-1.25) mg/dL Glucose 154 H (74-99) mg/dL POC Glucose (mg/dL) (75-99) mg/dL 11/21/19 Range/Units 06:32 WBC (3.8-10.6) k/uL PT (9.0-12.0) sec INR (<1.2) Potassium (3.5-5.1) mmol/L BUN (9-20) mg/dL Creatinine (0.66-1.25) mg/dL Glucose (74-99) mg/dL POC Glucose (mg/dL) 146 H (75-99) mg/dL Microbiology - Last 24 Hours (Table) 11/18/19 14:42 Blood Culture - Preliminary Blood No Growth after 48 hours 11/19/19 18:12 Gram Stain - Preliminary Sputum Sputum Culture - Preliminary Assessment and Plan Assessment: Acute hypoxic respiratory failure Acute diastolic heart failure Severe pulmonary hypertension likely multifactorial including an element of obstructive sleep apnea Acute COPD exacerbation Chronic renal failure Hyperkalemia Elevated PT/INR/coagulopathy on Coumadin currently on hold Morbid obesity Purulent tracheobronchitis Remote history of smoking Covid 19 negative Plan: Agree with broad-spectrum antibiotics bronchodilators and IV steroids for now we will start tapering steroid down We will continue dopamine drip 2.5 g along with Lasix to be changed to IV instead of continuous infusion Continue oxygen on 5 L oxygen was titrated down as tolerated Continue patient on oral anticoagulation Eliquis Trial of a Revatio to be continued Patient will need BiPAP each night and when necessary during the day currently declining we'll continue to communicate with the patient Further recommendations pending plan of care as per clinical response of the patient Time with Patient: Greater than 30
--- NOTE | 2019-11-21 10:52 | P.PN ---
Subjective Progress Note Date: 11/21/19 74-year-old male one of my office patient with known for long time with past medical history of A. fib with RVR, congestive heart failure, chronic edema and chronic anasarca, history of obstructive sleep apnea hyperlipidemia and hyperglycemia who called the office today was to be seen because of worsening dyspnea and shortness of breath with minimum exertion with cough productive DrNena romero patient pulse ox has been low and has been having significant tachycardia and tachypnea. With low-grade temperature with suspicion for Covid 19 patient was diverted to the emergency department where was seen and evaluated chest x- ray showed moderate interstitial pulmonary edema based on congestive heart failure with slight right basilar opacity consistent with pneumonia with significant picture of COPD and CHF. His BNP was mildly elevated. His INR was 9.7 with no change in dose in the lost few weeks patient INR has been running close to 2 normally. Patient also had mildly elevated white blood cell and significant worsening kidney failure with acute kidney failure on chronic kidney disease. He is still in A. fib with pulse rate running between 1910. Patient was giving 1 dose of Rocephin IV we'll continue furosemide IV 20 mg every 12 hours will be increased up to 40 mg twice a day attempt to start him on dopamine renal dose with a blood pressure below patient was hospitalized at this point. He is at high risk for the Covid 19 despite his test be negative the marker with Covid 19 were low probability patient will be kept on anticoagulation his blood is thin at this point but no reason for any other treatment at this point. We'll consult pulmonary and cardiology and admit patient to the hospital. 11/18: Patient remains in the ICU and on Dopamine gtt. INR is greater than 10. Patient received 1 dose of vitamin K this morning.Hemoglobin is at 12.1. Greco catheter in place draining blood-tinged urine. Patient is requesting to have Greco removed but we will plan to remove this tomorrow. He denies any blood in his stool. No nosebleeds. A repeat BUN 42 and creatinine 2.33 with potassium 5.6. Repeat chest x-ray reveals worsening changes of heart failure. He is currently on Lasix 20 mg IV every 12 hours and diuresing well. Patient is on IV steroids and NovoLog scale will be added. Symbicort also added. He does state his breathing is significantly improved since yesterday. Patient is followed by pulmonary medicine and cardiology. 11/19: Patient remains in the intensive care unit. He has been afebrile, heart rate in the 90s, blood pressure 107/76, pulse ox 90% on 15 L nasal cannula. Patient has been evaluated by cardiology. Echocardiogram revealed ejection fraction of 55-60%, LA is severely dilated, intra-atrial and intraventricular septum intact. Moderate to severe tricuspid regurg with moderate to severe pulmonary hypertension. Recommendations to continue dopamine drip and metoprolol, check coverage for Eliquis as an alternative to Coumadin. The patient has been evaluated by Dr. Murray and he has transitioned IV Lasix to Lasix drip, continue dopamine, he repeated a dose of vitamin K. Plan is to continue high flow nasal cannula 15 L titrate if possible and BiPAP during the night or during the day as needed. Repeat blood work reveals INR is 2.7. WBC 12.6, hemoglobin 12.5, platelet count 143. Sodium 137, potassium 5.9, chloride 102, CO2 28, BUN 46 and creatinine 2.03. Patient has been diuresing well and weight is down 5 kg. He denies shortness of breath at rest. He is reaching 15 ML's on incentive spirometry. This hematuria has cleared. 11/20: Patient remains in intensive care unit. Oxygen is now down to 5 L nasal cannula pulse oxing 93%. Patient continues to have good urine output. He will be transitioned from Lasix drip to IV Lasix today per Dr. Bowie INR today is at 1.6 and patient will be started on eliquis 2.5 mg twice daily based on renal function. Last evening, patient pulled his Greco catheter out and this was replaced now has some bloody return seems to be clearing. WBC 17.5, INR 1.6, BUN 56, creatinine 1.91 and potassium 5.3. Blood sugars running between 121 255. CK 25. Repeat chest x-ray reveals continued improvement of the retrocardiac obesity and trace left pleural effusion. Reticular right basilar opacities likely related to atelectasis. We will plan to transfer patient out of intensive care unit if cleared by Dr. Murray. Objective - Vital Signs Vital signs: Vital Signs Temp 97.7 F 11/21/19 08:00 Pulse 96 11/21/19 08:00 Resp 22 11/21/19 08:30 BP 101/55 11/21/19 08:30 Pulse Ox 88 L 11/21/19 08:30 Intake & Output 11/20/19 11/21/19 11/21/19 18:59 06:59 18:59 Intake Total 268.8 365.717 22.4 Output Total 2100 1615 350 Balance -1831.2 -1249.283 -327.6 Weight 152.1 kg Intake: IV 268.8 268.8 22.4 0.9 sodium chloride 120 120 10 Dextrose/Water 1 250ml. 88.8 88.8 7.4 bag @ 2.5 MCG/KG/MIN 7. 442 mls/hr IV .Q24H ROGER with DOPamine DRIP 800 mg Rx#:[id number] Furosemide 100 mg In 60 60 5 Sodium Chloride 0.9% 90 ml @ 5 MG/HR 5 mls/hr IV .Q20H ROGER Rx#:[id number] Intake, IV Titration 96.917 Amount Furosemide 100 mg In 96.917 Sodium Chloride 0.9% 90 ml @ 5 MG/HR 5 mls/hr IV .Q20H ROGER Rx#:[id number] Output: Urine 2100 1615 350 Other: Voiding Method Indwelling Catheter Indwelling Catheter - Exam Review of Systems CONSTITUTIONAL: Morbidly obese. Denies fever, denies chills. EYES: No icterus sclerae, no conjunctivitis. EARS, NOSE, MOUTH, THROAT, and FACE: No sore throat, lymphadenopathy, carotid bruits or deformity. RESPIRATORY: Positive shortness of breath cough and wheezes. CARDIOVASCULAR: Positive PND orthopnea palpitation positive increased edema no sign of angina. GASTROINTESTINAL: No Abd pain, Nausea or vomiting, no Diarrhea or constipation, No GI Bleed, no distention or masses. GENITOURINARY: Positive Hematuria- or UTI, no kidney stones. Slight decrease in urine output. INTEGUMENT/BREAST: Negative for any muscular injury with mild osteoarthritis.. And mild myalgia. HEMATOLOGIC/LYMPHATIC: Negative purpura. MUSCULOSKELTAL: Negative for Myalgia or arthralgia. NEURLOGICAL: No LOC, Sz or syncope, blurred vision dizziness or abnormality. BEHAVIORAL/PSYCH: Negative. ENDOCRINE: Negative. Physical examination General Appearance: Alert, cooperative,no respiratory distress, appears stated age. Morbidly obese Neck HEENT: Supple, no lymphadenopathy, no thyroid enlargement, no carotid bruits. Lungs: Decreased breath some bilaterally with fine rhonchibilateral bases. Chest Wall: Decrease expansion with deep inspiration no tenderness and no deformity was found on exam, no costochondral pain or discomfort. Heart: Irregular rate and rhythm, S1, S2 positive with systolic murmur. Back: Symmetric, no curvature, ROM normal, no CVA tenderness. Abdomen: Soft, non-tender, bowel sounds active all four quadrants, no masses, no organomegaly.Greco catheter with hematuria Extremities: Significant edema with anasarca and slight discoloration from the knee down with trace edema decreased pulse and dorsalis pedis bilaterally. Pulses: 2+ and symmetric. Skin: Skin color, texture, tugor normal, no rashes or lesions. Neurologic: Alert oriented x3 cranial nerves II through XII intact, no motor deficit, no abnormal balance or gait. - Labs CBC & Chem 7: 11/21/19 04:30 11/21/19 04:30 Labs: Abnormal Lab Results - Last 24 Hours (Table) 11/20/19 11/20/19 11/20/19 Range/Units 11:59 16:39 20:17 WBC (3.8-10.6) k/uL PT (9.0-12.0) sec INR (<1.2) Potassium (3.5-5.1) mmol/L BUN (9-20) mg/dL Creatinine (0.66-1.25) mg/dL Glucose (74-99) mg/dL POC Glucose (mg/dL) 121 H 148 H 155 H (75-99) mg/dL 11/21/19 11/21/19 11/21/19 Range/Units 04:30 04:30 04:30 WBC 17.5 H (3.8-10.6) k/uL PT 15.8 H (9.0-12.0) sec INR 1.6 H (<1.2) Potassium 5.3 H (3.5-5.1) mmol/L BUN 56 H (9-20) mg/dL Creatinine 1.91 H (0.66-1.25) mg/dL Glucose 154 H (74-99) mg/dL POC Glucose (mg/dL) (75-99) mg/dL 11/21/19 Range/Units 06:32 WBC (3.8-10.6) k/uL PT (9.0-12.0) sec INR (<1.2) Potassium (3.5-5.1) mmol/L BUN (9-20) mg/dL Creatinine (0.66-1.25) mg/dL Glucose (74-99) mg/dL POC Glucose (mg/dL) 146 H (75-99) mg/dL Microbiology - Last 24 Hours (Table) 11/18/19 14:42 Blood Culture - Preliminary Blood No Growth after 48 hours 11/19/19 18:12 Gram Stain - Preliminary Sputum Sputum Culture - Preliminary Assessment and Plan Plan: 1. Acute hypoxic respiratory failure secondary to a combination of acute on chronic diastolic heart failure, COPD exacerbation, right-sided pneumonia. acute respiratory failure: Combination of CHF exacerbation, COPD exacerbation, pulmonary edema and right-sided pneumonia. Covered 19 was ruled out at this point. Patient is currently on 5 L nasal cannula.. Consults with pulmonary medicine and cardiology appreciated. 2. Acute exacerbation of diastolic heart failure. Continue dopamine, Lasix drip transitioned to IV. Monitor I&O, daily weights, electrolyte and renal function. 3. Right lower lobe pneumonia, possible gram-negative pneumonia. Continue antibiotics 4. COPD exacerbation: Continue patient on Ventolin and Symbicort, IV Solu- Medrol decreased to 40mg q12h. 5. Acute kidney injury with stage III chronic kidney disease, improving. Patient continued on renal dose of Dopamine. 6. COVID-19 was ruled out. 7. A. fib with RVR, chronic atrial fibrillation. Continue metoprolol, cardizem. Start Eliquis. 8. Hypertension. Continue Lopressor for now. Hold Benzapril, spironolactone. 9. Hypercoagulopathy: Most likely the interaction between Bactrim DS and warfarin not a clear who put patient on Bactrim DS at this point could be walk in the clinic was not prescribed in my office patient has not been seen in the last 6 weeks. We will hold Bactrim DS. INR is now therapeutic 10. Chronic gout: Patient has been on Zyloprim. 11 GI prophylaxis: Patient will be kept on PPI with pantoprazole 40 mg daily. 12 DVT prophylaxis. Eliquis. 13. Secondary moderate pulmonary hypertension with systolic pressure of 48 secondary to obstructive sleep apnea, unable to tolerate CPAP. Started on sildenafil 20mg tid. 14. Hematuria secondary to trauma. Greco catheter in place. CODE status: Full code. Discharge plan: To be determined Impression and plan of care have been directed as dictated by the signing physician. Linda Maloney nurse practitioner acting as scribe for signing physician.
[2019-11-21 11:21] LABS: Glucose,Whole Blood 111 mg/dL (75-99)
--- NOTE | 2019-11-21 12:05 | P.PN ---
Subjective This is Grisel Morris PA-C scribing on behalf of Dr. Bowie Chart review and observation only, Dr. Bowie did not examine the patient because the patient was thought to be possible covid patient He did discuss the patient with the nurse HPI/interval history Patient is a 74-year-old male with a history of chronic persistent atrial fibrillation, hypertension, dyslipidemia, sleep apnea, GERD, osteoarthritis, chronic edema and anasarca who presented with complaints of shortness of breath, and productive cough. He was admitted for treatment of CHF and pneumonia. He has been on antibiotics and a Lasix drip. Chest x-ray today shows improvement of retrocardiac opacity and trace left pleural effusion. He is in the ICU. Currently on a dopamine drip. EXAMINATION Patient is afebrile, pulse in the 100s, respirations 22, blood pressure 101/55, oxygen saturation 93% on 11 L nasal cannula no examination, chart review and observation only REVIEW OF LABS, ECG WBC 17.5, hemoglobin 13.3, platelets 174, INR 1.6, potassium 5.3, BUN 56, creatinine 1.91 Echocardiogram shows EF 55-60%, moderate concentric LVH, severely enlarged right ventricle, severely dilated LA, moderate to severe pulmonary hypertension IMPRESSION / ASSESSMENT: #Acute hypoxic respiratory failure, multifactorial, acute on chronic diastolic heart failure, right lower lobe pneumonia, COPD exacerbation #LUCIANA and CKD, creatinine improving #Atrial fibrillation with RVR, rate in the 90s currently, anticoagulated with Coumadin previously, INR supratherapeutic upon admission, now 1.6 #Acute on chronic diastolic heart failure, echocardiogram showing EF 55-60% #History of hypertension, currently hypotensive and on a dopamine drip #Sleep apnea #Pulmonary hypertension PLAN: Stop Lasix drip and switch to IV lasix tomorrow medicine is starting eliquis 2.5 BID continue rate control medications Objective - Vital Signs Vital signs: Vital Signs Temp 97.7 F 11/21/19 08:00 Pulse 79 11/21/19 09:00 Resp 16 11/21/19 09:00 BP 97/66 11/21/19 09:00 Pulse Ox 94 L 11/21/19 09:00 Intake & Output 11/20/19 11/21/19 11/21/19 18:59 06:59 18:59 Intake Total 268.8 365.717 22.4 Output Total 2100 1615 350 Balance -1831.2 -1249.283 -327.6 Weight 152.1 kg Intake: IV 268.8 268.8 22.4 0.9 sodium chloride 120 120 10 Dextrose/Water 1 250ml. 88.8 88.8 7.4 bag @ 2.5 MCG/KG/MIN 7. 442 mls/hr IV .Q24H ROGER with DOPamine DRIP 800 mg Rx#:[id number] Furosemide 100 mg In 60 60 5 Sodium Chloride 0.9% 90 ml @ 5 MG/HR 5 mls/hr IV .Q20H ROGER Rx#:[id number] Intake, IV Titration 96.917 Amount Furosemide 100 mg In 96.917 Sodium Chloride 0.9% 90 ml @ 5 MG/HR 5 mls/hr IV .Q20H ROGER Rx#:[id number] Output: Urine 2100 1615 350 Other: Voiding Method Indwelling Catheter Indwelling Catheter Indwelling Catheter - Labs CBC & Chem 7: 11/21/19 04:30 11/21/19 04:30 Labs: Abnormal Lab Results - Last 24 Hours (Table) 11/20/19 11/20/19 11/20/19 Range/Units 11:59 16:39 20:17 WBC (3.8-10.6) k/uL PT (9.0-12.0) sec INR (<1.2) Potassium (3.5-5.1) mmol/L BUN (9-20) mg/dL Creatinine (0.66-1.25) mg/dL Glucose (74-99) mg/dL POC Glucose (mg/dL) 121 H 148 H 155 H (75-99) mg/dL 11/21/19 11/21/19 11/21/19 Range/Units 04:30 04:30 04:30 WBC 17.5 H (3.8-10.6) k/uL PT 15.8 H (9.0-12.0) sec INR 1.6 H (<1.2) Potassium 5.3 H (3.5-5.1) mmol/L BUN 56 H (9-20) mg/dL Creatinine 1.91 H (0.66-1.25) mg/dL Glucose 154 H (74-99) mg/dL POC Glucose (mg/dL) (75-99) mg/dL 11/21/19 Range/Units 06:32 WBC (3.8-10.6) k/uL PT (9.0-12.0) sec INR (<1.2) Potassium (3.5-5.1) mmol/L BUN (9-20) mg/dL Creatinine (0.66-1.25) mg/dL Glucose (74-99) mg/dL POC Glucose (mg/dL) 146 H (75-99) mg/dL Microbiology - Last 24 Hours (Table) 11/18/19 14:42 Blood Culture - Preliminary Blood No Growth after 48 hours 11/19/19 18:12 Gram Stain - Preliminary Sputum Sputum Culture - Preliminary
[2019-11-21 16:37] LABS: Glucose,Whole Blood 135 mg/dL (75-99)
[2019-11-21] MEDS: DEXTROSE/WATER 1 250ML.BAG with DOPamine DRIP 800 MG IV SCH (17:25)
[2019-11-21 20:48] LABS: Glucose,Whole Blood 126 mg/dL (75-99)
[2019-11-21] MEDS ORDERED: APIXABAN 2.5 MG TABLET PO SCH (21:00)
[2019-11-21] MEDS: AZITHROMYCIN 500 MG TAB PO SCH (21:28)
[2019-11-21] MEDS: ALLOPURINOL 100 MG TAB PO SCH (21:29)
[2019-11-21] MEDS: PRAVASTATIN SODIUM 20 MG TAB PO SCH (21:29)
[2019-11-22] MEDS: CLOTRIMAZOLE TROCHE 10 MG TROCHE MUCOUS MEM SCH ×6 (00:07→23:29)
[2019-11-22 06:08] LABS: Glucose,Whole Blood 152 mg/dL (75-99)
[2019-11-22 06:13] LABS: INR 1.5 (<1.2); Prothrombin Time 15.1 sec (9.0-12.0)
[2019-11-22 06:16] LABS: Calcium 9.8 mg/dL (8.4-10.2); Potassium 5.2 mmol/L (3.5-5.1)
[2019-11-22] MEDS: DILTIAZEM ORAL 30 MG TAB PO SCH ×2 (07:30→21:38)
[2019-11-22] MEDS: INSULIN ASPART (NovoLOG) 100 UNIT/ML VIAL SQ SCH ×4 (07:30→21:40)
[2019-11-22] MEDS: METOPROLOL TARTRATE 50 MG TAB PO SCH ×2 (07:30→16:42)
--- NOTE | 2019-11-22 07:38 | XR ---
EXAMINATION TYPE: XR chest 1V DATE OF EXAM: 11/22/2019 HISTORY: Shortness of breath. COMPARISON: 11/21/2019 TECHNIQUE: Single view of the chest is submitted. FINDINGS: Demonstrated are scattered senescent parenchymal change. Persistent patchy basilar densities may reflect underlying infiltrate. Improving aeration left lower lobe. The heart is stable. Hilar and mediastinal structures are within normal limits. Degenerative changes are seen of the dorsal spine. IMPRESSION: 1. Persistent patchy basilar densities may reflect underlying infiltrate. Improving aeration left lo wer lobe.
--- NOTE | 2019-11-22 08:12 | CDI ---
Documentation Clarification Form Date: 11/22/2019 07:25:07 AM From: Lizzette Gamez RN, CCDS Admit Date: 11/18/2019 04:55:00 PM Patient Name: Sung Montilla Visit Number: [id number] Discharge Date: ATTENTION: The Clinical Documentation Specialists (CDI) and [facility] Coding Staff appreciate your assistance in clarifying documentation. Please respond to the clarification below the line at the bottom and electronically sign. The CDI & [facility] Coding staff will review the response and follow-up if needed. Please note: Queries are made part of the Legal Health Record. If you have any questions, please contact the author of this message via ITS. Dr. Gianluca Grissom The patient presented on 11/17 with complaints of shortness of breath with minimum exertion, productive cough, significant tachycardia and tachypnea. Clinical significance for the presenting is requested. History/Risk Factors: Atrial Fibrillation, heart Failure, Pneumonia Hypertension Clinical Indicators: 74-year-old male on 11/17 with complaint of shortness of breath. Chest x-ray showed pulmonary edema and pneumonia. Suspicion for Covid- 19 testing was negative. 11/17 WBC 12.3, Neutrophils 10.5, BUN 49, 2.98, 11/17 Lactic acid: 1.6 Blood cultures: Pending 11/17 at 14:16 Vitals signs on admission: 74/47 116 24 97.4 100% RA; 11/17 at 14:35: 118/89 88 24 79 % RA Other Clinical Indicators: 3/4 SIRS criteria: heart rate 116, respiration 24, WBC 12.3, Infection source: Pneumonia Treatment: ICU/Telemetry Monitoring Rocephin 1 gm IV q 24 Azithromycin 500 mg IV 11/17-11/19 then 500 mg po q 24 hrs Solu-Medrol 40 IV q 8 hrs Dopamine DRIP @ 7.442 MLS HR 11/17-11/20 Albuterol inhalation 2 puff q6 prn Monitor CBC, Lytes, Daily Chest X-ray Monitor O2 Sat's (titrate) In your professional opinion, please clarify if these findings signify one of the following conditions, whether the condition is POA, and cause, if known: Condition Sepsis ruled out SIRS, without underlying infectious process Sepsis Severe Sepsis Septic Shock Other, please specify Unable to determine Present on Admission Yes No Identify the (suspected) organism Link or clarify if there is associated (due to/with): Organ failure Shock SIRS Criteria (2 or more of the following may indicate SIRS): -Temperature < 96.8F (36C) or > 101.0F (38.3C) -Heart Rate > 90 bpm -Respiratory Rate > 20 breaths/min or PaCO2 < 32 mmHg -White Blood Cell Count > 12,000 or < 4,000 cells/mm3 or > 10% bands -Lactate >2.0 mmol/L (>4.0 is equivalent to septic shock) (Last Revision: October 2017) MTDD
[2019-11-22] MEDS: ALBUTEROL HFA INHALER INHALATION SCH ×4 (09:08→19:40)
[2019-11-22] MEDS: FLUTICASONE 110 MCG INHALER INHALATION SCH ×2 (09:08→19:40)
[2019-11-22] MEDS: FUROSEMIDE 10 MG/ML 4 ML VIAL IV SCH (09:45)
[2019-11-22] MEDS: APIXABAN 2.5 MG TABLET PO SCH ×2 (09:45→21:39)
[2019-11-22] MEDS: SILDENAFIL 20 MG TAB PO SCH ×3 (09:45→21:38)
[2019-11-22] MEDS: PANTOPRAZOLE 40 MG/10 ML VIAL IVP SCH (09:46)
[2019-11-22] MEDS: methylPREDNISolone SOD SUCCI 40 MG/ML 1 ML VIAL IV SCH ×2 (09:46→21:41)
--- NOTE | 2019-11-22 11:58 | P.PN ---
Subjective This is Grisel Morris PA-C scribing on behalf of Dr. Bowie The patient was interviewed and examined by Dr. Bowie HPI/interval history Patient is a 74-year-old male with a history of chronic persistent atrial fibrillation, hypertension, dyslipidemia, sleep apnea, GERD, osteoarthritis, chronic edema and anasarca who presented with complaints of shortness of breath, and productive cough. He was admitted for treatment of CHF and pneumonia. He was treated with antibiotics and a Lasix drip. Chest x-ray today shows improvement. Today we are switching to IV Lasix. Blood pressure has improved. Currently in atrial fibrillation with rates in the 90s. Breathing has improved, able to lie flat comfortably. EXAMINATION Patient is afebrile, pulse in the 90s, respirations 18, blood pressure 140/81, oxygen saturation 95% on 2 L nasal cannula Patient does not appear to be in any acute distress laying in bed Breath sounds reduced bilaterally Heart is irregular Trophic changes noted in lower extremities, minimal edema No appreciable JVD REVIEW OF LABS, ECG No new labs today Echocardiogram shows EF 55%, moderate concentric LVH, severely enlarged right ventricle, severely dilated LA, moderate to severe pulmonary hypertension IMPRESSION / ASSESSMENT: #Acute hypoxic respiratory failure, multifactorial, acute on chronic diastolic heart failure, right lower lobe pneumonia, COPD exacerbation #LUCIANA and CKD #Atrial fibrillation, rates in the 90s, anticoagulated with eliquis #Acute on chronic diastolic heart failure, echocardiogram showing EF 55-60% #History of hypertension, currently hypotensive and on a dopamine drip #Sleep apnea #Pulmonary hypertension PLAN: Increase metoprolol to 150 mg twice a day Tomorrow we may back off on diltiazem to simplify the rate control medication regimen Continue anticoagulation with eliquis Objective - Vital Signs Vital signs: Vital Signs Temp 97.4 F L 11/22/19 04:00 Pulse 99 11/22/19 08:00 Resp 18 11/22/19 08:00 BP 140/81 11/22/19 08:00 Pulse Ox 95 11/22/19 08:31 Intake & Output 11/21/19 11/22/19 11/22/19 18:59 06:59 18:59 Intake Total 592.0 240 Output Total 20040 Balance -1413.0 -1050 240 Weight 152.7 kg Intake: IV 112.0 0.9 sodium chloride 50 Dextrose/Water 1 250ml. 37.0 bag @ 2.5 MCG/KG/MIN 7. 442 mls/hr IV .Q24H ROGER with DOPamine DRIP 800 mg Rx#:[id number] Furosemide 100 mg In 25 Sodium Chloride 0.9% 90 ml @ 5 MG/HR 5 mls/hr IV .Q20H ROGER Rx#:[id number] Oral 480 240 Output: Urine 2004 1050 Other: Voiding Method Indwelling Catheter Indwelling Catheter # Voids 1 1 - Labs CBC & Chem 7: 11/21/19 04:30 11/22/19 05:39 Labs: Abnormal Lab Results - Last 24 Hours (Table) 11/20/19 11/21/19 11/21/19 Range/Units 04:11 04:30 11:19 PT (9.0-12.0) sec INR (<1.2) Potassium (3.5-5.1) mmol/L Carbon Dioxide (22-30) mmol/L BUN (9-20) mg/dL Creatinine (0.66-1.25) mg/dL Glucose (74-99) mg/dL POC Glucose (mg/dL) 111 H (75-99) mg/dL Creatine Kinase 25 L (55-170) U/L Prealbumin 12.0 L (18.0-42.0) mg/dL 11/21/19 11/21/19 11/22/19 Range/Units 16:36 20:46 05:39 PT 15.1 H (9.0-12.0) sec INR 1.5 H (<1.2) Potassium (3.5-5.1) mmol/L Carbon Dioxide (22-30) mmol/L BUN (9-20) mg/dL Creatinine (0.66-1.25) mg/dL Glucose (74-99) mg/dL POC Glucose (mg/dL) 135 H 126 H (75-99) mg/dL Creatine Kinase (55-170) U/L Prealbumin (18.0-42.0) mg/dL 11/22/19 11/22/19 Range/Units 05:39 06:06 PT (9.0-12.0) sec INR (<1.2) Potassium 5.2 H (3.5-5.1) mmol/L Carbon Dioxide 32 H (22-30) mmol/L BUN 61 H (9-20) mg/dL Creatinine 1.64 H (0.66-1.25) mg/dL Glucose 160 H (74-99) mg/dL POC Glucose (mg/dL) 152 H (75-99) mg/dL Creatine Kinase (55-170) U/L Prealbumin (18.0-42.0) mg/dL Microbiology - Last 24 Hours (Table) 11/19/19 18:12 Gram Stain - Final Sputum Sputum Culture - Final 11/18/19 14:42 Blood Culture - Preliminary Blood No Growth after 72 hours
[2019-11-22 11:59] LABS: Glucose,Whole Blood 124 mg/dL (75-99)
--- NOTE | 2019-11-22 13:33 | P.PN ---
Subjective Progress Note Date: 11/22/19 74-year-old male one of my office patient with known for long time with past medical history of A. fib with RVR, congestive heart failure, chronic edema and chronic anasarca, history of obstructive sleep apnea hyperlipidemia and hyperglycemia who called the office today was to be seen because of worsening dyspnea and shortness of breath with minimum exertion with cough productive DrNena phlegwendolyn patient pulse ox has been low and has been having significant tachycardia and tachypnea. With low-grade temperature with suspicion for Covid 19 patient was diverted to the emergency department where was seen and evaluated chest x- ray showed moderate interstitial pulmonary edema based on congestive heart failure with slight right basilar opacity consistent with pneumonia with significant picture of COPD and CHF. His BNP was mildly elevated. His INR was 9.7 with no change in dose in the lost few weeks patient INR has been running close to 2 normally. Patient also had mildly elevated white blood cell and significant worsening kidney failure with acute kidney failure on chronic kidney disease. He is still in A. fib with pulse rate running between 1910. Patient was giving 1 dose of Rocephin IV we'll continue furosemide IV 20 mg every 12 hours will be increased up to 40 mg twice a day attempt to start him on dopamine renal dose with a blood pressure below patient was hospitalized at this point. He is at high risk for the Covid 19 despite his test be negative the marker with Covid 19 were low probability patient will be kept on anticoagulation his blood is thin at this point but no reason for any other treatment at this point. We'll consult pulmonary and cardiology and admit patient to the hospital. 11/18: Patient remains in the ICU and on Dopamine gtt. INR is greater than 10. Patient received 1 dose of vitamin K this morning.Hemoglobin is at 12.1. Greco catheter in place draining blood-tinged urine. Patient is requesting to have Greco removed but we will plan to remove this tomorrow. He denies any blood in his stool. No nosebleeds. A repeat BUN 42 and creatinine 2.33 with potassium 5.6. Repeat chest x-ray reveals worsening changes of heart failure. He is currently on Lasix 20 mg IV every 12 hours and diuresing well. Patient is on IV steroids and NovoLog scale will be added. Symbicort also added. He does state his breathing is significantly improved since yesterday. Patient is followed by pulmonary medicine and cardiology. 11/19: Patient remains in the intensive care unit. He has been afebrile, heart rate in the 90s, blood pressure 107/76, pulse ox 90% on 15 L nasal cannula. Patient has been evaluated by cardiology. Echocardiogram revealed ejection fraction of 55-60%, LA is severely dilated, intra-atrial and intraventricular septum intact. Moderate to severe tricuspid regurg with moderate to severe pulmonary hypertension. Recommendations to continue dopamine drip and metoprolol, check coverage for Eliquis as an alternative to Coumadin. The patient has been evaluated by Dr. Murray and he has transitioned IV Lasix to Lasix drip, continue dopamine, he repeated a dose of vitamin K. Plan is to continue high flow nasal cannula 15 L titrate if possible and BiPAP during the night or during the day as needed. Repeat blood work reveals INR is 2.7. WBC 12.6, hemoglobin 12.5, platelet count 143. Sodium 137, potassium 5.9, chloride 102, CO2 28, BUN 46 and creatinine 2.03. Patient has been diuresing well and weight is down 5 kg. He denies shortness of breath at rest. He is reaching 15 ML's on incentive spirometry. This hematuria has cleared. 11/20: Patient remains in intensive care unit. Oxygen is now down to 5 L nasal cannula pulse oxing 93%. Patient continues to have good urine output. He will be transitioned from Lasix drip to IV Lasix today per Dr. Bowie INR today is at 1.6 and patient will be started on eliquis 2.5 mg twice daily based on renal function. Last evening, patient pulled his Greco catheter out and this was replaced now has some bloody return seems to be clearing. WBC 17.5, INR 1.6, BUN 56, creatinine 1.91 and potassium 5.3. Blood sugars running between 121 255. CK 25. Repeat chest x-ray reveals continued improvement of the retrocardiac obesity and trace left pleural effusion. Reticular right basilar opacities likely related to atelectasis. We will plan to transfer patient out of intensive care unit if cleared by Dr. Murray. 11/21: Patient is seen today on the cardiac stepdown unit. He is still on dopamine at renal dosing and Lasix is 40 mg IV daily. Greco has now cleared and will be discontinued. He denies having any chest pain. He has had a bowel movement. Last evening, patient had no spleen states he hit it while he was in the bathroom. Dr. Saldaña consult was added. Patient has been afebrile, heart rate 95, blood pressure 97/68, pulse ox 95% on 2 L nasal cannula. INR 1.5. Patient is on eliquis. One dose was held last evening due to nosebleed. Potassium 5.2, CO2 32, BUN 61 and creatinine 1.64. Blood sugars running between 1206-160. Repeat chest x-ray reveals persistent patchy basilar densities may reflect underlying infiltrate. Improving aeration of the left lower lobe.. Objective - Vital Signs Vital signs: Vital Signs Temp 97.4 F L 11/22/19 04:00 Pulse 99 11/22/19 08:00 Resp 18 11/22/19 08:00 BP 140/81 11/22/19 08:00 Pulse Ox 95 11/22/19 08:31 Intake & Output 11/21/19 11/22/19 11/22/19 18:59 06:59 18:59 Intake Total 592.0 240 Output Total 2004 1050 Balance -1413.0 -1050 240 Weight 152.7 kg Intake: IV 112.0 0.9 sodium chloride 50 Dextrose/Water 1 250ml. 37.0 bag @ 2.5 MCG/KG/MIN 7. 442 mls/hr IV .Q24H ROGER with DOPamine DRIP 800 mg Rx#:[id number] Furosemide 100 mg In 25 Sodium Chloride 0.9% 90 ml @ 5 MG/HR 5 mls/hr IV .Q20H ROGER Rx#:[id number] Oral 480 240 Output: Urine 20040 Other: Voiding Method Indwelling Catheter Indwelling Catheter # Voids 1 1 - Exam Review of Systems CONSTITUTIONAL: Morbidly obese. Denies fever, denies chills. EYES: No icterus sclerae, no conjunctivitis. EARS, NOSE, MOUTH, THROAT, and FACE: No sore throat, lymphadenopathy, carotid bruits or deformity. RESPIRATORY: Positive shortness of breath cough and wheezes. CARDIOVASCULAR: Positive PND orthopnea denies palpitation denies increased edema no sign of angina. GASTROINTESTINAL: No Abd pain, Nausea or vomiting, no Diarrhea or constipation, No GI Bleed, no distention or masses. GENITOURINARY: Denies Hematuria denies UTI, no kidney stones. INTEGUMENT/BREAST: Negative for any muscular injury with mild osteoarthritis.. And mild myalgia. HEMATOLOGIC/LYMPHATIC: Negative purpura. MUSCULOSKELTAL: Negative for Myalgia or arthralgia. NEURLOGICAL: No LOC, Sz or syncope, blurred vision dizziness or abnormality. BEHAVIORAL/PSYCH: Negative. ENDOCRINE: Negative. Physical examination General Appearance: Alert, cooperative,no respiratory distress, appears stated age. Patient is resting in recliner. Morbidly obese Neck HEENT: Supple, no lymphadenopathy, no thyroid enlargement, no carotid bruits. Lungs: Decreased breath some bilaterally with fine rhonchibilateral bases. Chest Wall: Decrease expansion with deep inspiration no tenderness and no de formity was found on exam, no costochondral pain or discomfort. Heart: Irregular rate and rhythm, S1, S2 positive with systolic murmur. Back: Symmetric, no curvature, ROM normal, no CVA tenderness. Abdomen: Soft, non-tender, bowel sounds active all four quadrants, no masses, no organomegaly.Greco catheter with hematuria Extremities: Significant edema with anasarca and slight discoloration from the knee down with trace edema decreased pulse and dorsalis pedis bilaterally. Pulses: 2+ and symmetric. Skin: Skin color, texture, tugor normal, no rashes or lesions. Neurologic: Alert oriented x3 cranial nerves II through XII intact, no motor deficit, no abnormal balance or gait. - Labs CBC & Chem 7: 11/21/19 04:30 11/22/19 05:39 Labs: Abnormal Lab Results - Last 24 Hours (Table) 11/20/19 11/21/19 11/21/19 Range/Units 04:11 11:19 16:36 PT (9.0-12.0) sec INR (<1.2) Potassium (3.5-5.1) mmol/L Carbon Dioxide (22-30) mmol/L BUN (9-20) mg/dL Creatinine (0.66-1.25) mg/dL Glucose (74-99) mg/dL POC Glucose (mg/dL) 111 H 135 H (75-99) mg/dL Prealbumin 12.0 L (18.0-42.0) mg/dL 11/21/19 11/22/19 11/22/19 Range/Units 20:46 05:39 05:39 PT 15.1 H (9.0-12.0) sec INR 1.5 H (<1.2) Potassium 5.2 H (3.5-5.1) mmol/L Carbon Dioxide 32 H (22-30) mmol/L BUN 61 H (9-20) mg/dL Creatinine 1.64 H (0.66-1.25) mg/dL Glucose 160 H (74-99) mg/dL POC Glucose (mg/dL) 126 H (75-99) mg/dL Prealbumin (18.0-42.0) mg/dL 11/22/19 Range/Units 06:06 PT (9.0-12.0) sec INR (<1.2) Potassium (3.5-5.1) mmol/L Carbon Dioxide (22-30) mmol/L BUN (9-20) mg/dL Creatinine (0.66-1.25) mg/dL Glucose (74-99) mg/dL POC Glucose (mg/dL) 152 H (75-99) mg/dL Prealbumin (18.0-42.0) mg/dL Microbiology - Last 24 Hours (Table) 11/19/19 18:12 Gram Stain - Final Sputum Sputum Culture - Final 11/18/19 14:42 Blood Culture - Preliminary Blood No Growth after 72 hours Assessment and Plan Plan: 1. Acute hypoxic respiratory failure secondary to a combination of acute on chronic diastolic heart failure, COPD exacerbation, right-sided pneumonia. acute respiratory failure: Combination of CHF exacerbation, COPD exacerbation, pulmonary edema and right-sided pneumonia. Covered 19 was ruled out at this point. Patient is currently on 2 L nasal cannula.. Consults with pulmonary medicine and cardiology appreciated. 2. Acute exacerbation of diastolic heart failure. Continue dopamine, Lasix 40 mg IV daily. Monitor I&O, daily weights, electrolyte and renal function. 3. Right lower lobe pneumonia, possible gram-negative pneumonia. Continue antibiotics 4. COPD exacerbation: Continue patient on Ventolin and Symbicort, IV Solu- Medrol 40mg q12h. 5. Acute kidney injury with stage III chronic kidney disease, improving. Patient continued on renal dose of Dopamine. 6. COVID-19 was ruled out. 7. A. fib with RVR, chronic atrial fibrillation. Continue metoprolol, cardizem. Start Eliquis. 8. Hypertension. Continue Lopressor for now. Hold Benzapril, spironolactone. 9. Hypercoagulopathy: Most likely the interaction between Bactrim DS and warfarin not a clear who put patient on Bactrim DS at this point could be walk in the clinic was not prescribed in my office patient has not been seen in the last 6 weeks. We will hold Bactrim DS. INR is now therapeutic 10. Chronic gout: Patient has been on Zyloprim. 11 GI prophylaxis: Patient will be kept on PPI with pantoprazole 40 mg daily. 12 DVT prophylaxis. Eliquis. 13. Secondary moderate pulmonary hypertension with systolic pressure of 48 secondary to obstructive sleep apnea, unable to tolerate CPAP. Started on sildenafil 20mg tid. 14. Hematuria secondary to trauma. Greco catheter will be discontinued. CODE status: Full code. Discharge plan: home Impression and plan of care have been directed as dictated by the signing physician. Linda Maloney nurse practitioner acting as scribe for signing physician.
--- NOTE | 2019-11-22 13:57 | P.PN ---
Subjective Progress Note Date: 11/22/19 Principal diagnosis: Acute hypoxic respiratory failure Acute diastolic heart failure Severe pulmonary hypertension likely multifactorial including an element of obstructive sleep apnea Chronic renal failure Hyperkalemia Elevated PT/INR/coagulopathy on Coumadin currently on hold Morbid obesity Purulent tracheobronchitis Remote history of smoking Covid 19 negative 11/22/2019, patient seen eval examined during the rounds labs reviewed medications reviewed have been tolerating well, oxygen continued to improve patient is diuresing very well, oxygen down to 2 L, saturation is 95%, chest x- ray from today reviewed patchy bilateral infiltrate improved overall infiltrate on the left side, patient can be switched to oral antibiotics and prednisone and next 24 hours 11/21/2019, patient seen eval examined in the Rounds labs reviewed medications reviewed remains on dopamine drip 2.5 mics Lasix is being discontinued, patient is making good amount of urine chest x-ray reviewed today shows improvement, infiltrates or better, patient have diuresed more than 6 L, swelling in the lower extremity improve, shortness of breath is improved oxygen is down to 5 L nasal cannula patient is tolerating Revatio very well, sitting upright in the bed, labs today have been reviewed white cell count is 7500 due to steroids, PT/INR is in subtherapeutic range however patient was started on oral Eliquis, potassium is improved to 5.3, beer and is slightly up creatinine continued to improve today's 56/1.91, GFR improved to 40 from 27 at the time admission, sputum culture and blood culture have been negative, will lowered her dose of Solu-Medrol critical care time spent 35 minutes 11/20/2019, patient seen eval examined in ICU still on 100% oxygen with exertion is 91-92%, patient remains on dopamine drip 2.5 mics, also on the Lasix drip 5 mg an hour, patient is putting out adequate urine chest x-ray reviewed today appears slightly better, patient is still left cough, productive sputum remains on broad-spectrum antibiotics sputum culture have been obtained and results are pending, patient remains afebrile, cardiovascular services following, for A. fib patient is on high-dose beta jacinto, patient has severe pulmonary hypertension have compared to echocardiogram performed in 2018 1 moderate, we'll start patient on theRevatio 20 mg 3 times a day, patient continued to refuse CPAP machine, INR has been therapeutic range is now will consider giving Eliquis for anticoagulation for A. fib, to be started from tomorrow, labs reviewed white cell count is 12,600 likely some affect from the steroids, patient remains high 5.6, with BUN/creatinine of 46 and 2.03, care plan discussed with the staff at length, will stop dopamine after 24 hours and possibly Lasix drip as well critical care time 35 minutes This is a 74-year-old male seen eval examined in ICU, patient has progressive shortness of breath and also lower extremity swelling for the last 2 weeks denies any fever does have intermittent cough with yellowish sputum production patient has been advised by primary service to be evaluated in the emergency department, echocardiogram performed this morning revealed normal LV function with ejection fraction of 55% along with severe LVH right ventricle and left atria dilated size of left atria is more than 40 mL per meter square, patient noted to have severe pulmonary hypertension along with severe tricuspid regurgitation I have discussed the patient to use the CPAP/BiPAP machine he has declined his BNP is 3690, INR is over 10, coated 19 negative white cell count is 12,000 potassium 5.9. Creatinine 42/2.13 down from 49-0.98 he has minimal output he is on 2.5 mics of dopamine and 20 mg every 12 furosemide he has bilateral lower extremity +3 edema, patient is also getting IV steroids breathing treatments and antibiotics Objective - Vital Signs Vital signs: Vital Signs Temp 97.4 F L 11/22/19 04:00 Pulse 95 11/22/19 11:28 Resp 18 11/22/19 11:28 BP 97/68 11/22/19 11:28 Pulse Ox 95 11/22/19 11:28 Intake & Output 11/21/19 11/22/19 11/22/19 18:59 06:59 18:59 Intake Total 592.0 580 Output Total 2004 1050 1600 Balance -1413.0 -1050 -1020 Weight 152.7 kg Intake: IV 112.0 100 0.9 sodium chloride 50 Dextrose/Water 1 250ml. 37.0 bag @ 2.5 MCG/KG/MIN 7. 442 mls/hr IV .Q24H ROGER with DOPamine DRIP 800 mg Rx#:[id number] Furosemide 100 mg In 25 Sodium Chloride 0.9% 90 ml @ 5 MG/HR 5 mls/hr IV .Q20H ROGER Rx#:[id number] cefTRIAXone 1 gm In 100 Sodium Chloride 0.9% 50 ml @ 100 mls/hr IVPB Q24HR [facility] Rx#:[id number] Oral 480 480 Output: Urine 2004 1050 1600 Other: Voiding Method Indwelling Catheter Indwelling Catheter # Voids 1 1 # Bowel Movements 1 - Exam - Constitutional General appearance: disheveled, mild distress, morbidly obese - EENT Eyes: EOMI, PERRLA Ears: bilateral: normal - Neck Carotids: bilateral: upstroke normal Thyroid: bilateral: normal size - Respiratory Respiratory: bilateral: diminished, rales, wheezing, negative: CTA, dullness - Cardiovascular Rhythm: regular Heart sounds: normal: S1, S2 - Gastrointestinal General gastrointestinal: normal bowel sounds, soft - Integumentary Integumentary: normal turgor - Neurologic Neurologic: CNII-XII intact - Musculoskeletal Musculoskeletal: gait normal, generalized weakness, strength equal bilaterally - Psychiatric Psychiatric: A&O x's 3, appropriate affect, intact judgment & insight - Labs CBC & Chem 7: 11/21/19 04:30 11/22/19 05:39 Labs: Abnormal Lab Results - Last 24 Hours (Table) 11/21/19 11/21/19 11/22/19 Range/Units 16:36 20:46 05:39 PT 15.1 H (9.0-12.0) sec INR 1.5 H (<1.2) Potassium (3.5-5.1) mmol/L Carbon Dioxide (22-30) mmol/L BUN (9-20) mg/dL Creatinine (0.66-1.25) mg/dL Glucose (74-99) mg/dL POC Glucose (mg/dL) 135 H 126 H (75-99) mg/dL 11/22/19 11/22/19 11/22/19 Range/Units 05:39 06:06 11:32 PT (9.0-12.0) sec INR (<1.2) Potassium 5.2 H (3.5-5.1) mmol/L Carbon Dioxide 32 H (22-30) mmol/L BUN 61 H (9-20) mg/dL Creatinine 1.64 H (0.66-1.25) mg/dL Glucose 160 H (74-99) mg/dL POC Glucose (mg/dL) 152 H 124 H (75-99) mg/dL Microbiology - Last 24 Hours (Table) 11/19/19 18:12 Gram Stain - Final Sputum Sputum Culture - Final 11/18/19 14:42 Blood Culture - Preliminary Blood No Growth after 72 hours Assessment and Plan Assessment: Acute hypoxic respiratory failure Acute diastolic heart failure Severe pulmonary hypertension likely multifactorial including an element of obstructive sleep apnea Acute COPD exacerbation Chronic renal failure Hyperkalemia Elevated PT/INR/coagulopathy on Coumadin currently on hold Morbid obesity Purulent tracheobronchitis Remote history of smoking Covid 19 negative Plan: Agree with broad-spectrum antibiotics bronchodilators and IV steroids for now we will start tapering steroid down, can be switched to oral in next 24 hours Can come off of dopamine Continue oxygen titrated down as tolerated Continue patient on oral anticoagulation Eliquis Trial of a Revatio to be continued Patient will need BiPAP each night and when necessary during the day currently declining we'll continue to communicate with the patient Further recommendations pending plan of care as per clinical response of the patient Time with Patient: Greater than 30
[2019-11-22 16:42] LABS: Glucose,Whole Blood 134 mg/dL (75-99)
[2019-11-22] MEDS: DEXTROSE/WATER 1 250ML.BAG with DOPamine DRIP 800 MG IV SCH (17:49)
--- NOTE | 2019-11-22 17:52 | CONS ---
CONSULTATION REASON FOR CONSULTATION: Epistaxis. HISTORY: This is a 74-year-old white male who has chronic atrial fibrillation, congestive heart failure, chronic edema and anasarca, who had worsening dyspnea and shortness of breath and was admitted for this. He had suspicion of Covid-19 however, has had 2 negative tests since he has been in the hospital. He did have pneumonia, however. He was initially in the ICU and subsequent on the floor now. He has had some intermittent epistaxis in the past, even as an outpatient, but had 2 episodes in the hospital, 1 in the ICU and then 1 last night on the left side of the nose that were more significant, lasting around an hour. He is on Eliquis presently. He is having no shortness of breath. He has been on nasal cannula oxygen also since he has been in the ICU during his hospitalization and still is on a low level of this, although was not wearing it today. He states that he may be able to be discharged tomorrow. PAST MEDICAL HISTORY: As above as well as hypertension, osteoarthritis, prostate disorder, sleep apnea, disorder, history of MRSA. PAST SURGICAL HISTORY: Cholecystectomy, cardiac catheterization, joint replacement, colonoscopies. SOCIAL HISTORY: Did smoke, does not now. None. FAMILY HISTORY: Positive for CVA, dementia. HOME MEDICATIONS: Zyloprim, Klor-Con, Pravachol, Aldactone, colchicine, Cardura, benazepril, diltiazem, furosemide, Lopressor, warfarin, albuterol, Bactrim. ALLERGIES: No known drug allergies. REVIEW OF SYSTEMS: CONSTITUTIONAL morbidly obese, but no distress. EYES, no conjunctivitis. EARS, nose, and throat as above, but no sore throat or lymphadenopathy. RESPIRATORY: Did have shortness of breath, but does not now. No wheezing. CARDIOVASCULAR: Occasional palpitations, but no chest pain. GI no abdominal pain and nausea or vomiting. No diarrhea. negative for hematuria or UTI or kidney stones. INTEGUMENT: Negative for skin disorders or rashes. HEMATOLOGIC: Negative for bleeding other that as above. Does have some bruising from his anticoagulants. MUSCULOSKELETAL: Negative for muscle aches or joint pain. NEUROLOGIC: No focal neurologic symptomatology. Behavioral psychologic negative. ENDOCRINE negative. PHYSICAL EXAM: VITAL SIGNS: Pulse oximetry is 96 percent on 2 L. blood pressure, pulse, respiratory rate within normal limits. Documented in the chart. GENERAL: Well-developed, obese white male in no acute distress. He is in the chair, sitting up, conversant, awake, alert, oriented x3 with no shortness of breath. No active bleeding. HEENT: Head normocephalic, atraumatic. EARS bilaterally canals clear. Mucous membranes unremarkable, mobile. NOSE shows dryness and excoriation of the septum bilaterally. The septum is deviated to the left with prominent vessels on the nasal septal spur which is cartilaginous spur anteriorly. I reviewed this finding with the patient today. This ultimately was cauterized as there was some minimal fresh blood on the side. MOUTH and throat shows no abnormal masses or lesions. No posterior bleeding. NECK is obese. No masses palpated. ASSESSMENT: 1. Left-sided epistaxis. 2. Anticoagulated status. 3. Deviated septum. PLAN: Recommended nasal cautery with silver nitrate on the left anterior septum. The patient was agreeable to this. This was performed. He tolerated this well. Continue nasal moisturization as much as possible, although even the humidified oxygen is excoriating the septum and therefore a factor in the epistaxis. Also, the patient does necessitate continuation of the anticoagulants and therefore still is at risk of continued or recurrent epistaxis. Nasal moisturization strategies read to the patient. Patient should not blow the nose for 1 week. I reviewed all this with him today. He will follow up as an outpatient otherwise as needed. He will call if he has questions otherwise. MMODL / IJN: [id number] /
--- NOTE | 2019-11-22 17:52 | PCN ---
PROCEDURE NOTE PREOP DIAGNOSIS: Left anterior epistaxis. POSTOP DIAGNOSIS: Left anterior epistaxis. PROCEDURE PERFORMED: Silver nitrate cauterization, left anterior septum. ANESTHESIA: None. COMPLICATIONS: None ESTIMATED BLOOD LOSS: Blood loss none. PROCEDURE DETAILS: The patient was in his hospital chair. Consent was obtained. Topical Afrin on cotton was placed in the bilateral nasal cavities and then was removed after 3 minutes. Dryness on the right side of the septum, but no bleeding points, and therefore this was not instrumented. On the left side, there was prominent vessels and dryness with minimal fresh blood and therefore this area on the left anterior septum was cauterized with silver nitrate. The patient tolerated this well. No complications. MMODL / IJN: [id number] /
[2019-11-22 20:44] LABS: Glucose,Whole Blood 122 mg/dL (75-99)
[2019-11-22] MEDS: PRAVASTATIN SODIUM 20 MG TAB PO SCH (21:39)
[2019-11-22] MEDS: AZITHROMYCIN 500 MG TAB PO SCH (21:39)
[2019-11-22] MEDS: ALLOPURINOL 100 MG TAB PO SCH (21:40)
[2019-11-23 06:16] LABS: Glucose,Whole Blood 160 mg/dL (75-99)
[2019-11-23] MEDS: DILTIAZEM ORAL 30 MG TAB PO SCH ×2 (06:21→19:53)
[2019-11-23] MEDS: CLOTRIMAZOLE TROCHE 10 MG TROCHE MUCOUS MEM SCH ×4 (06:24→19:54)
[2019-11-23] MEDS: METOPROLOL TARTRATE 50 MG TAB PO SCH ×2 (06:24→16:36)
[2019-11-23] MEDS: INSULIN ASPART (NovoLOG) 100 UNIT/ML VIAL SQ SCH ×4 (06:24→22:05)
[2019-11-23 06:55] LABS: Calcium 9.6 mg/dL (8.4-10.2); Potassium 4.9 mmol/L (3.5-5.1)
[2019-11-23] MEDS: ALBUTEROL HFA INHALER INHALATION SCH ×4 (08:09→20:15)
[2019-11-23] MEDS: FLUTICASONE 110 MCG INHALER INHALATION SCH ×2 (08:09→20:16)
[2019-11-23] MEDS: APIXABAN 2.5 MG TABLET PO SCH ×2 (08:46→19:53)
[2019-11-23] MEDS: SILDENAFIL 20 MG TAB PO SCH ×3 (08:46→19:54)
[2019-11-23] MEDS: methylPREDNISolone SOD SUCCI 40 MG/ML 1 ML VIAL IV SCH ×2 (08:47→22:05)
[2019-11-23] MEDS: PANTOPRAZOLE 40 MG/10 ML VIAL IVP SCH (08:47)
[2019-11-23] MEDS: FUROSEMIDE 10 MG/ML 4 ML VIAL IV SCH (08:47)
[2019-11-23 11:29] LABS: Glucose,Whole Blood 126 mg/dL (75-99)
--- NOTE | 2019-11-23 11:55 | P.PN ---
Subjective This is Grisel Morris PA-C scribing on behalf of Dr. Bowie The patient was interviewed and examined by Dr. Bowie HPI/interval history Patient is a 74-year-old male with a history of chronic persistent atrial fibrillation, hypertension, dyslipidemia, sleep apnea, GERD, osteoarthritis, chronic edema and anasarca who presented with complaints of shortness of breath, and productive cough. He was admitted for treatment of CHF and pneumonia. He was treated with antibiotics and a Lasix drip. Chest x-ray today shows improvement. Yesterday we switched to IV Lasix and increase metoprolol to 150 mg twice a day for rate control. He also underwent Silver nitrate cauterization anterior septum yesterday for epistaxis. Today his rates have improved. He is resting in bed comfortably. His breathing has improved. No chest pain. EXAMINATION Patient is afebrile, pulse in the 70-80s, respirations 18, blood pressure 105/64, oxygen saturation 94% on room air Dr. Bowie and examined the patient Patient appears comfortable, not in any acute distress lungs clear to auscultation bilaterally Heart is irregular Trophic changes noted in lower extremities, very minimal edema No appreciable JVD REVIEW OF LABS, ECG Potassium 4.9, BUN is 65, creatinine 1.68 Echocardiogram shows EF 55%, moderate concentric LVH, severely enlarged right ve ntricle, severely dilated LA, moderate to severe pulmonary hypertension IMPRESSION / ASSESSMENT: #Acute hypoxic respiratory failure, multifactorial, acute on chronic diastolic heart failure, right lower lobe pneumonia, COPD exacerbation, improved #LUCIANA and CKD #Atrial fibrillation, rates in the 70s anticoagulated with eliquis #Acute on chronic diastolic heart failure, echocardiogram showing EF 55-60%, improved #History of hypertension, blood pressure controlled #Sleep apnea #Pulmonary hypertension #Epistaxis status post silver nitrate cauterization PLAN: Continue current dose of metoprolol and oral diltiazem for rate control, will monitor heart rate and blood pressure and tomorrow may consider stopping diltiazem based on heart rate and blood pressure switch to oral lasix 40 by mouth twice a day Continue anticoagulation with eliquis Discharge planning tomorrow Objective - Vital Signs Vital signs: Vital Signs Temp 97.6 F 11/23/19 07:53 Pulse 87 11/23/19 11:35 Resp 18 05/06/20 11:35 BP 105/64 11/23/19 11:35 Pulse Ox 94 L 11/23/19 11:35 Intake & Output 11/22/19 11/23/19 11/23/19 18:59 06:59 18:59 Intake Total 820 480 Output Total 1600 600 Balance -780 -600 480 Weight 151.8 kg Intake: IV 100 cefTRIAXone 1 gm In 100 Sodium Chloride 0.9% 50 ml @ 100 mls/hr IVPB Q24HR [facility] Rx#:[id number] Oral 720 480 Output: Urine 1600 600 Other: Voiding Method Toilet # Voids 1 # Bowel Movements 1 1 - Labs CBC & Chem 7: 11/21/19 04:30 11/23/19 05:59 Labs: Abnormal Lab Results - Last 24 Hours (Table) 11/22/19 11/22/19 11/22/19 Range/Units 11:32 16:32 20:42 Carbon Dioxide (22-30) mmol/L BUN (9-20) mg/dL Creatinine (0.66-1.25) mg/dL Glucose (74-99) mg/dL POC Glucose (mg/dL) 124 H 134 H 122 H (75-99) mg/dL 11/23/19 11/23/19 11/23/19 Range/Units 05:59 06:14 11:27 Carbon Dioxide 31 H (22-30) mmol/L BUN 65 H (9-20) mg/dL Creatinine 1.68 H (0.66-1.25) mg/dL Glucose 152 H (74-99) mg/dL POC Glucose (mg/dL) 160 H 126 H (75-99) mg/dL Microbiology - Last 24 Hours (Table) 11/18/19 14:42 Blood Culture - Preliminary Blood No Growth after 96 hours 11/19/19 18:12 Gram Stain - Final Sputum Sputum Culture - Final
--- NOTE | 2019-11-23 14:35 | P.PN ---
Subjective Progress Note Date: 11/23/19 74-year-old male one of my office patient with known for long time with past medical history of A. fib with RVR, congestive heart failure, chronic edema and chronic anasarca, history of obstructive sleep apnea hyperlipidemia and hyperglycemia who called the office today was to be seen because of worsening dyspnea and shortness of breath with minimum exertion with cough productive DrNena romero patient pulse ox has been low and has been having significant tachycardia and tachypnea. With low-grade temperature with suspicion for Covid 19 patient was diverted to the emergency department where was seen and evaluated chest x- ray showed moderate interstitial pulmonary edema based on congestive heart failure with slight right basilar opacity consistent with pneumonia with significant picture of COPD and CHF. His BNP was mildly elevated. His INR was 9.7 with no change in dose in the lost few weeks patient INR has been running close to 2 normally. Patient also had mildly elevated white blood cell and significant worsening kidney failure with acute kidney failure on chronic kidney disease. He is still in A. fib with pulse rate running between 1910. Patient was giving 1 dose of Rocephin IV we'll continue furosemide IV 20 mg every 12 hours will be increased up to 40 mg twice a day attempt to start him on dopamine renal dose with a blood pressure below patient was hospitalized at this point. He is at high risk for the Covid 19 despite his test be negative the marker with Covid 19 were low probability patient will be kept on anticoagulation his blood is thin at this point but no reason for any other treatment at this point. We'll consult pulmonary and cardiology and admit patient to the hospital. 11/18: Patient remains in the ICU and on Dopamine gtt. INR is greater than 10. Patient received 1 dose of vitamin K this morning.Hemoglobin is at 12.1. Greco catheter in place draining blood-tinged urine. Patient is requesting to have Greco removed but we will plan to remove this tomorrow. He denies any blood in his stool. No nosebleeds. A repeat BUN 42 and creatinine 2.33 with potassium 5.6. Repeat chest x-ray reveals worsening changes of heart failure. He is currently on Lasix 20 mg IV every 12 hours and diuresing well. Patient is on IV steroids and NovoLog scale will be added. Symbicort also added. He does state his breathing is significantly improved since yesterday. Patient is followed by pulmonary medicine and cardiology. 11/19: Patient remains in the intensive care unit. He has been afebrile, heart rate in the 90s, blood pressure 107/76, pulse ox 90% on 15 L nasal cannula. Patient has been evaluated by cardiology. Echocardiogram revealed ejection fraction of 55-60%, LA is severely dilated, intra-atrial and intraventricular septum intact. Moderate to severe tricuspid regurg with moderate to severe pulmonary hypertension. Recommendations to continue dopamine drip and metoprolol, check coverage for Eliquis as an alternative to Coumadin. The patient has been evaluated by Dr. Murray and he has transitioned IV Lasix to Lasix drip, continue dopamine, he repeated a dose of vitamin K. Plan is to continue high flow nasal cannula 15 L titrate if possible and BiPAP during the night or during the day as needed. Repeat blood work reveals INR is 2.7. WBC 12.6, hemoglobin 12.5, platelet count 143. Sodium 137, potassium 5.9, chloride 102, CO2 28, BUN 46 and creatinine 2.03. Patient has been diuresing well and weight is down 5 kg. He denies shortness of breath at rest. He is reaching 15 ML's on incentive spirometry. This hematuria has cleared. 11/20: Patient remains in intensive care unit. Oxygen is now down to 5 L nasal cannula pulse oxing 93%. Patient continues to have good urine output. He will be transitioned from Lasix drip to IV Lasix today per Dr. Bowie INR today is at 1.6 and patient will be started on eliquis 2.5 mg twice daily based on renal function. Last evening, patient pulled his Greco catheter out and this was replaced now has some bloody return seems to be clearing. WBC 17.5, INR 1.6, BUN 56, creatinine 1.91 and potassium 5.3. Blood sugars running between 121 255. CK 25. Repeat chest x-ray reveals continued improvement of the retrocardiac obesity and trace left pleural effusion. Reticular right basilar opacities likely related to atelectasis. We will plan to transfer patient out of intensive care unit if cleared by Dr. Murray. 11/21: Patient is seen today on the cardiac stepdown unit. He is still on dopamine at renal dosing and Lasix is 40 mg IV daily. Greco has now cleared and will be discontinued. He denies having any chest pain. He has had a bowel movement. Last evening, patient had no spleen states he hit it while he was in the bathroom. Dr. Saldaña consult was added. Patient has been afebrile, heart rate 95, blood pressure 97/68, pulse ox 95% on 2 L nasal cannula. INR 1.5. Patient is on eliquis. One dose was held last evening due to nosebleed. Potassium 5.2, CO2 32, BUN 61 and creatinine 1.64. Blood sugars running between 1206-160. Repeat chest x-ray reveals persistent patchy basilar densities may reflect underlying infiltrate. Improving aeration of the left lower lobe.. 11/22: Patient is afebrile, heart rate 96, blood pressure 102/62, pulse ox 97% on 2 L nasal cannula. Repeat blood work reveals CO2 31, BUN 65 and creatinine 1.68, capillary blood glucose running between 122 and 160. Cardiology has increased metoprolol to 150 mg today with planned for possible change Cardizem dosing. Dopamine drip will be discontinued today. We will plan to transition Solu-Medrol to oral prednisone for tomorrow. Antibiotics will also be transitioned to oral for tomorrow. She was seen by Dr. Gil and silver nitrate cauterization was done in the left nares. Anticipate discharge home tomorrow. Objective - Vital Signs Vital signs: Vital Signs Temp 97.6 F 11/23/19 07:53 Pulse 96 11/23/19 07:53 Resp 16 11/23/19 07:53 BP 102/62 11/23/19 07:53 Pulse Ox 92 L 11/23/19 08:45 Intake & Output 11/22/19 11/23/19 11/23/19 18:59 06:59 18:59 Intake Total 820 480 Output Total 1600 600 Balance -780 -600 480 Weight 151.8 kg Intake: IV 100 cefTRIAXone 1 gm In 100 Sodium Chloride 0.9% 50 ml @ 100 mls/hr IVPB Q24HR [facility] Rx#:[id number] Oral 720 480 Output: Urine 1600 600 Other: Voiding Method Toilet # Voids 1 # Bowel Movements 1 1 - Exam Review of Systems CONSTITUTIONAL: Morbidly obese. Denies fever, denies chills. EYES: No icterus sclerae, no conjunctivitis. EARS, NOSE, MOUTH, THROAT, and FACE: No sore throat, lymphadenopathy, carotid bruits or deformity. RESPIRATORY: Positive shortness of breath cough and wheezes. CARDIOVASCULAR: Positive PND orthopnea denies palpitation denies increased edema no sign of angina. GASTROINTESTINAL: No Abd pain, Nausea or vomiting, no Diarrhea or constipation, No GI Bleed, no distention or masses. GENITOURINARY: Denies Hematuria denies UTI, no kidney stones. INTEGUMENT/BREAST: Negative for any muscular injury with mild osteoarthritis. No myalgia. HEMATOLOGIC/LYMPHATIC: Negative purpura. MUSCULOSKELTAL: Negative for Myalgia or arthralgia. NEURLOGICAL: No LOC, Sz or syncope, blurred vision dizziness or abnormality. BEHAVIORAL/PSYCH: Negative. ENDOCRINE: Negative. Physical examination General Appearance: Alert, cooperative, no respiratory distress, appears stated age. Patient is resting in recliner. Morbidly obese Neck HEENT: Supple, no lymphadenopathy, no thyroid enlargement, no carotid bruits. Lungs: Decreased breath some bilaterally. Chest Wall: Decrease expansion with deep inspiration no tenderness and no deformity was found on exam, no costochondral pain or discomfort. Heart: Irregular rate and rhythm, S1, S2 positive with systolic murmur. Back: Symmetric, no curvature, ROM normal, no CVA tenderness. Abdomen: Soft, non-tender, bowel sounds active all four quadrants, no masses, no organomegaly.Greco catheter with hematuria Extremities: Significant edema with anasarca and slight discoloration from the knee down with trace edema decreased pulse and dorsalis pedis bilaterally. Pulses: 2+ and symmetric. Skin: Skin color, texture, tugor normal, no rashes or lesions. Neurologic: Alert oriented x3 cranial nerves II through XII intact, no motor deficit, no abnormal balance or gait. - Labs CBC & Chem 7: 11/21/19 04:30 11/23/19 05:59 Labs: Abnormal Lab Results - Last 24 Hours (Table) 11/22/19 11/22/19 11/22/19 Range/Units 11:32 16:32 20:42 Carbon Dioxide (22-30) mmol/L BUN (9-20) mg/dL Creatinine (0.66-1.25) mg/dL Glucose (74-99) mg/dL POC Glucose (mg/dL) 124 H 134 H 122 H (75-99) mg/dL 11/23/19 11/23/19 Range/Units 05:59 06:14 Carbon Dioxide 31 H (22-30) mmol/L BUN 65 H (9-20) mg/dL Creatinine 1.68 H (0.66-1.25) mg/dL Glucose 152 H (74-99) mg/dL POC Glucose (mg/dL) 160 H (75-99) mg/dL Microbiology - Last 24 Hours (Table) 11/18/19 14:42 Blood Culture - Preliminary Blood No Growth after 96 hours 11/19/19 18:12 Gram Stain - Final Sputum Sputum Culture - Final Assessment and Plan Plan: 1. Acute hypoxic respiratory failure secondary to a combination of acute on chronic diastolic heart failure, COPD exacerbation, right-sided pneumonia. acute respiratory failure: Combination of CHF exacerbation, COPD exacerbation, pulmonary edema and right-sided pneumonia. Covered 19 was ruled out at this point. Patient is currently on room air. Consults with pulmonary medicine and cardiology appreciated. 2. Acute exacerbation of diastolic heart failure. Continue dopamine, Lasix 40 mg oral daily. Monitor I&O, daily weights, electrolyte and renal function. 3. Right lower lobe pneumonia, possible gram-negative pneumonia. Continue antibiotics 4. COPD exacerbation: Continue patient on Ventolin and Symbicort, IV Solu- Medrol to transition to oral prednisone and oral antibiotics 5. Acute kidney injury with stage III chronic kidney disease, improving. Patient continued on renal dose of Dopamine. 6. COVID-19 was ruled out. 7. A. fib with RVR, chronic atrial fibrillation. Continue metoprolol, cardizem continue Eliquis. 8. Hypertension. Continue Lopressor for now. Hold Benzapril, spironolactone. 9. Hypercoagulopathy: Most likely the interaction between Bactrim DS and warfarin not a clear who put patient on Bactrim DS at this point could be walk in the clinic was not prescribed in my office patient has not been seen in the last 6 weeks. We will hold Bactrim DS. INR is now therapeutic 10. Chronic gout: Patient has been on Zyloprim. 11 GI prophylaxis: Patient will be kept on PPI with pantoprazole 40 mg daily. 12 DVT prophylaxis. Eliquis. 13. Secondary moderate pulmonary hypertension with systolic pressure of 48 secondary to obstructive sleep apnea, unable to tolerate CPAP. Started on sildenafil 20mg tid. 14. Hematuria secondary to trauma. Greco catheter will be discontinued. CODE status: Full code. Discharge plan: home on Impression and plan of care have been directed as dictated by the signing physician. Linda Maloney nurse practitioner acting as scribe for signing physician.
--- NOTE | 2019-11-23 15:07 | P.PN ---
Subjective Progress Note Date: 11/23/19 Principal diagnosis: Acute hypoxic respiratory failure Acute diastolic heart failure Severe pulmonary hypertension likely multifactorial including an element of obstructive sleep apnea Chronic renal failure Hyperkalemia Elevated PT/INR/coagulopathy on Coumadin currently on hold Morbid obesity Purulent tracheobronchitis Remote history of smoking Covid 19 negative 11/23/2019, patient seen eval examined overall respiratory status remains stable patient is on room air now oxygen saturation is low 90s however deep breathing improved to mid 90s, patient is status post to the cautery for the epistaxis has been a stable overnight but this morning to start using again, pressure has been applied nurse notified may need repeat cautery if persist 11/22/2019, patient seen eval examined during the rounds labs reviewed medications reviewed have been tolerating well, oxygen continued to improve patient is diuresing very well, oxygen down to 2 L, saturation is 95%, chest x- ray from today reviewed patchy bilateral infiltrate improved overall infiltrate on the left side, patient can be switched to oral antibiotics and prednisone and next 24 hours 11/21/2019, patient seen eval examined in the Rounds labs reviewed medications reviewed remains on dopamine drip 2.5 mics Lasix is being discontinued, patient is making good amount of urine chest x-ray reviewed today shows improvement, infiltrates or better, patient have diuresed more than 6 L, swelling in the lower extremity improve, shortness of breath is improved oxygen is down to 5 L nasal cannula patient is tolerating Revatio very well, sitting upright in the bed, labs today have been reviewed white cell count is 7500 due to steroids, PT/INR is in subtherapeutic range however patient was started on oral Eliquis, potassium is improved to 5.3, beer and is slightly up creatinine continued to improve today's 56/1.91, GFR improved to 40 from 27 at the time admission, sputum culture and blood culture have been negative, will lowered her dose of Solu-Medrol critical care time spent 35 minutes 11/20/2019, patient seen eval examined in ICU still on 100% oxygen with exertion is 91-92%, patient remains on dopamine drip 2.5 mics, also on the Lasix drip 5 mg an hour, patient is putting out adequate urine chest x-ray reviewed today appears slightly better, patient is still left cough, productive sputum remains on broad-spectrum antibiotics sputum culture have been obtained and results are pending, patient remains afebrile, cardiovascular services following, for A. fib patient is on high-dose beta jacinto, patient has severe pulmonary hypertension have compared to echocardiogram performed in 2018 1 moderate, we'll start patient on theRevatio 20 mg 3 times a day, patient continued to refuse CPAP machine, INR has been therapeutic range is now will consider giving Eliquis for anticoagulation for A. fib, to be started from tomorrow, labs reviewed white cell count is 12,600 likely some affect from the steroids, patient remains high 5.6, with BUN/creatinine of 46 and 2.03, care plan discussed with the staff at length, will stop dopamine after 24 hours and possibly Lasix drip as well critical care time 35 minutes This is a 74-year-old male seen eval examined in ICU, patient has progressive shortness of breath and also lower extremity swelling for the last 2 weeks denies any fever does have intermittent cough with yellowish sputum production patient has been advised by primary service to be evaluated in the emergency department, echocardiogram performed this morning revealed normal LV function w ith ejection fraction of 55% along with severe LVH right ventricle and left atria dilated size of left atria is more than 40 mL per meter square, patient noted to have severe pulmonary hypertension along with severe tricuspid regurgitation I have discussed the patient to use the CPAP/BiPAP machine he has declined his BNP is 3690, INR is over 10, coated 19 negative white cell count is 12,000 potassium 5.9. Creatinine 42/2.13 down from 49-0.98 he has minimal output he is on 2.5 mics of dopamine and 20 mg every 12 furosemide he has bilateral lower extremity +3 edema, patient is also getting IV steroids breathing treatments and antibiotics Objective - Vital Signs Vital signs: Vital Signs Temp 97.6 F 11/23/19 07:53 Pulse 87 11/23/19 11:35 Resp 18 11/23/19 11:35 BP 105/64 11/23/19 11:35 Pulse Ox 94 L 11/23/19 11:35 Intake & Output 11/22/19 11/23/19 11/23/19 18:59 06:59 18:59 Intake Total 820 960 Output Total 1600 600 Balance -780 -600 960 Weight 151.8 kg Intake: IV 100 cefTRIAXone 1 gm In 100 Sodium Chloride 0.9% 50 ml @ 100 mls/hr IVPB Q24HR [facility] Rx#:[id number] Oral 720 960 Output: Urine 1600 600 Other: Voiding Method Toilet # Voids 1 # Bowel Movements 1 1 - Exam - Constitutional General appearance: disheveled, mild distress, morbidly obese - EENT Eyes: EOMI, PERRLA Ears: bilateral: normal - Neck Carotids: bilateral: upstroke normal Thyroid: bilateral: normal size - Respiratory Respiratory: bilateral: diminished, rales, wheezing, negative: CTA, dullness - Cardiovascular Rhythm: regular Heart sounds: normal: S1, S2 - Gastrointestinal General gastrointestinal: normal bowel sounds, soft - Integumentary Integumentary: normal turgor - Neurologic Neurologic: CNII-XII intact - Musculoskeletal Musculoskeletal: gait normal, generalized weakness, strength equal bilaterally - Psychiatric Psychiatric: A&O x's 3, appropriate affect, intact judgment & insight - Labs CBC & Chem 7: 11/21/19 04:30 11/23/19 05:59 Labs: Abnormal Lab Results - Last 24 Hours (Table) 11/22/19 11/22/19 11/23/19 Range/Units 16:32 20:42 05:59 Carbon Dioxide 31 H (22-30) mmol/L BUN 65 H (9-20) mg/dL Creatinine 1.68 H (0.66-1.25) mg/dL Glucose 152 H (74-99) mg/dL POC Glucose (mg/dL) 134 H 122 H (75-99) mg/dL 11/23/19 11/23/19 Range/Units 06:14 11:27 Carbon Dioxide (22-30) mmol/L BUN (9-20) mg/dL Creatinine (0.66-1.25) mg/dL Glucose (74-99) mg/dL POC Glucose (mg/dL) 160 H 126 H (75-99) mg/dL Microbiology - Last 24 Hours (Table) 11/18/19 14:42 Blood Culture - Preliminary Blood No Growth after 96 hours Assessment and Plan Assessment: Epistaxis Acute hypoxic respiratory failure Acute diastolic heart failure Severe pulmonary hypertension likely multifactorial including an element of obstructive sleep apnea Acute COPD exacerbation Chronic renal failure Hyperkalemia Elevated PT/INR/coagulopathy on Coumadin currently on hold Morbid obesity Purulent tracheobronchitis Remote history of smoking Covid 19 negative Plan: Apply pressure for epistaxis discussed with RN may need repeat cautery a bleeding not controlled Agree with broad-spectrum antibiotics bronchodilators and IV steroids for now we will start tapering steroid down, can be switched to oral in next 24 hours Can come off of dopamine Continue oxygen titrated down as tolerated Continue patient on oral anticoagulation Eliquis Trial of a Revatio to be continued Patient will need BiPAP each night and when necessary during the day currently declining we'll continue to communicate with the patient Further recommendations pending plan of care as per clinical response of the patient Time with Patient: Greater than 30
[2019-11-23] MEDS: FUROSEMIDE 40 MG TAB PO SCH (16:34)
[2019-11-23 16:36] LABS: Glucose,Whole Blood 106 mg/dL (75-99)
[2019-11-23] MEDS: PRAVASTATIN SODIUM 20 MG TAB PO SCH (19:53)
[2019-11-23] MEDS: AZITHROMYCIN 500 MG TAB PO SCH (19:53)
[2019-11-23] MEDS: ALLOPURINOL 100 MG TAB PO SCH (19:53)
[2019-11-23 20:24] LABS: Glucose,Whole Blood 162 mg/dL (75-99)
[2019-11-24] MEDS ORDERED: CLOTRIMAZOLE TROCHE 10 MG TROCHE ONE
[2019-11-24 05:07] VITALS: RESP 20
[2019-11-24] MEDS: CLOTRIMAZOLE TROCHE 10 MG TROCHE MUCOUS MEM SCH ×3 (06:25→14:52)
[2019-11-24] MEDS: DILTIAZEM ORAL 30 MG TAB PO SCH (06:26)
[2019-11-24] MEDS: METOPROLOL TARTRATE 50 MG TAB PO SCH (06:26)
[2019-11-24] MEDS: INSULIN ASPART (NovoLOG) 100 UNIT/ML VIAL SQ SCH ×2 (06:32→13:06)
[2019-11-24 06:33] LABS: Glucose,Whole Blood 128 mg/dL (75-99)
[2019-11-24] MEDS ORDERED: CEPHALEXIN 250 MG CAP PO SCH (07:00)
[2019-11-24] MEDS ORDERED: predniSONE 20 MG TAB PO SCH (09:00)
[2019-11-24] MEDS: FLUTICASONE 110 MCG INHALER INHALATION SCH (09:24)
[2019-11-24] MEDS: ALBUTEROL HFA INHALER INHALATION SCH ×3 (09:24→15:38)
[2019-11-24] MEDS: APIXABAN 2.5 MG TABLET PO SCH (09:29)
[2019-11-24] MEDS: FUROSEMIDE 40 MG TAB PO SCH (09:29)
[2019-11-24] MEDS: PANTOPRAZOLE 40 MG/10 ML VIAL IVP SCH (09:29)
--- NOTE | 2019-11-24 11:20 | P.DS ---
Providers Date of admission: 11/18/19 16:55 Expected date of discharge: 11/24/19 Attending physician: Gianluca Grissom Consults: 11/18/19 16:55 Consult Physician Routine Consulting Provider: [facility] Consult Reason/Comments: Pulmonary edema Do you want consulting provider notified?: Yes 11/18/19 19:49 Consult Physician Routine Consulting Provider: Nicola Murray Consult Reason/Comments: icu management Do you want consulting provider notified?: Yes 11/21/19 16:34 Consult Physician Routine Consulting Provider: Abdifatah Farnsworth Consult Reason/Comments: nose bleed - anticoagulation assessment Do you want consulting provider notified?: Yes Primary care physician: [facility] Course: 74-year-old male one of my office patient with known for long time with past medical history of A. fib with RVR, congestive heart failure, chronic edema and chronic anasarca, history of obstructive sleep apnea hyperlipidemia and hyperglycemia who called the office today was to be seen because of worsening dyspnea and shortness of breath with minimum exertion with cough productive Dr. phlegm patient pulse ox has been low and has been having significant tachycardia and tachypnea. With low-grade temperature with suspicion for Covid 19 patient was diverted to the emergency department where was seen and evaluated chest x- ray showed moderate interstitial pulmonary edema based on congestive heart failure with slight right basilar opacity consistent with pneumonia with significant picture of COPD and CHF. His BNP was mildly elevated. His INR was 9.7 with no change in dose in the lost few weeks patient INR has been running close to 2 normally. Patient also had mildly elevated white blood cell and significant worsening kidney failure with acute kidney failure on chronic kidney disease. He is still in A. fib with pulse rate running between 1910. Patient was giving 1 dose of Rocephin IV we'll continue furosemide IV 20 mg every 12 hours will be increased up to 40 mg twice a day attempt to start him on dopamine renal dose with a blood pressure below patient was hospitalized at this point. He is at high risk for the Covid 19 despite his test be negative the marker with Covid 19 were low probability patient will be kept on anticoagulation his blood is thin at this point but no reason for any other treatment at this point. We'll consult pulmonary and cardiology and admit patient to the hospital. 11/18: Patient remains in the ICU and on Dopamine gtt. INR is greater than 10. Patient received 1 dose of vitamin K this morning.Hemoglobin is at 12.1. Greco catheter in place draining blood-tinged urine. Patient is requesting to have Greco removed but we will plan to remove this tomorrow. He denies any blood in his stool. No nosebleeds. A repeat BUN 42 and creatinine 2.33 with potassium 5.6. Repeat chest x-ray reveals worsening changes of heart failure. He is currently on Lasix 20 mg IV every 12 hours and diuresing well. Patient is on IV steroids and NovoLog scale will be added. Symbicort also added. He does state his breathing is significantly improved since yesterday. Patient is followed by pulmonary medicine and cardiology. 11/19: Patient remains in the intensive care unit. He has been afebrile, heart rate in the 90s, blood pressure 107/76, pulse ox 90% on 15 L nasal cannula. Patient has been evaluated by cardiology. Echocardiogram revealed ejection fraction of 55-60%, LA is severely dilated, intra-atrial and intraventricular septum intact. Moderate to severe tricuspid regurg with moderate to severe pulmonary hypertension. Recommendations to continue dopamine drip and metoprolol, check coverage for Eliquis as an alternative to Coumadin. The patient has been evaluated by Dr. Murray and he has transitioned IV Lasix to Lasix drip, continue dopamine, he repeated a dose of vitamin K. Plan is to continue high flow nasal cannula 15 L titrate if possible and BiPAP during the night or during the day as needed. Repeat blood work reveals INR is 2.7. WBC 12.6, hemoglobin 12.5, platelet count 143. Sodium 137, potassium 5.9, chloride 102, CO2 28, BUN 46 and creatinine 2.03. Patient has been diuresing well and weight is down 5 kg. He denies shortness of breath at rest. He is reaching 15 ML's on incentive spirometry. This hematuria has cleared. 11/20: Patient remains in intensive care unit. Oxygen is now down to 5 L nasal cannula pulse oxing 93%. Patient continues to have good urine output. He will be transitioned from Lasix drip to IV Lasix today per Dr. Bowie INR today is at 1.6 and patient will be started on eliquis 2.5 mg twice daily based on renal function. Last evening, patient pulled his Greco catheter out and this was replaced now has some bloody return seems to be clearing. WBC 17.5, INR 1.6, BUN 56, creatinine 1.91 and potassium 5.3. Blood sugars running between 121 255. CK 25. Repeat chest x-ray reveals continued improvement of the retrocardiac obesity and trace left pleural effusion. Reticular right basilar opacities likely related to atelectasis. We will plan to transfer patient out of intensive care unit if cleared by Dr. Murray. 11/21: Patient is seen today on the cardiac stepdown unit. He is still on dopamine at renal dosing and Lasix is 40 mg IV daily. Greco has now cleared and will be discontinued. He denies having any chest pain. He has had a bowel movement. Last evening, patient had no spleen states he hit it while he was in the bathroom. Dr. Saldaña consult was added. Patient has been afebrile, heart rate 95, blood pressure 97/68, pulse ox 95% on 2 L nasal cannula. INR 1.5. Patient is on eliquis. One dose was held last evening due to nosebleed. Potassium 5.2, CO2 32, BUN 61 and creatinine 1.64. Blood sugars running between 1206-160. Repeat chest x-ray reveals persistent patchy basilar densities may reflect underlying infiltrate. Improving aeration of the left lower lobe.. 11/22: Patient is afebrile, heart rate 96, blood pressure 102/62, pulse ox 97% on 2 L nasal cannula. Repeat blood work reveals CO2 31, BUN 65 and creatinine 1.68, capillary blood glucose running between 122 and 160. Cardiology has increased metoprolol to 150 mg today with planned for possible change Cardizem dosing. Dopamine drip will be discontinued today. We will plan to transition Solu-Medrol to oral prednisone for tomorrow. Antibiotics will also be transitioned to oral for tomorrow. She was seen by Dr. Gil and silver nitrate cauterization was done in the left nares. Anticipate discharge home tomorrow. 11/23: Patient denies any new complaints. Shortness of breath is significantly improved. He is currently pulse oxing 97% on room air. Patient's been afebrile, heart rate in 80s and 90s, blood pressure 127/82. Blood sugars are running between 160 162. He is currently on oral Lasix and oral steroids. Patient relates that he did have another epistaxis last evening and will plan for outpatient follow-up with Dr. Gil in the office. Patient will be discharged home today in stable condition. Discharge diagnoses: 1. Acute hypoxic respiratory failure secondary to a combination of acute on chronic diastolic heart failure, COPD exacerbation, right-sided pneumonia. 2. Acute exacerbation of diastolic heart failure. 3. Right lower lobe pneumonia, possible gram-negative pneumonia. 4. COPD exacerbation. 5. Acute kidney injury with stage III chronic kidney disease, improving. 6. COVID-19 was ruled out. 7. A. fib with RVR, chronic atrial fibrillation. 8. Hypertension. 9. Hypercoagulopathy secondary to interaction between Bactrim DS and warfarin. 10. Chronic gout. Secondary moderate pulmonary hypertension with systolic pressure of 48 secondary to obstructive sleep apnea, unable to tolerate CPAP. Started on sildenafil 20mg tid. 14. Hematuria secondary to trauma. Greco catheter will be discontinued. CODE status: Full code. Discharge plan: home Impression and plan of care have been directed as dictated by the signing physician. Linda Maloney nurse practitioner acting as scribe for signing physician. Plan - Discharge Summary Discharge Rx Participant: No New Discharge Prescriptions: New Apixaban [Eliquis] 2.5 mg PO BID #60 tablet Cephalexin [Keflex] 250 mg PO TID #12 cap Metoprolol Tartrate [Lopressor] 150 mg PO BID-W/MEALS #180 tab predniSONE 0 mg PO DIRECTED #20 tab Sildenafil [Revatio] 20 mg PO TID #90 tab Continue Pravastatin Sodium [Pravachol] 20 mg PO HS@2200 Allopurinol [Zyloprim] 100 mg PO HS@2200 Potassium Chloride [Klor-Con 10] 10 meq PO W/SUPPER Colchicine [Colcrys] 0.6 mg PO DAILY@0700 Diltiazem Oral [Cardizem*] 30 mg PO BID@0700,2200 Furosemide [Lasix] 40 mg PO BID@0700,1500 Albuterol Sulfate [Albuterol Sulfate Hfa] 2 puff PO RT-Q6H PRN PRN Reason: Shortness Of Breath Discontinued Spironolactone [Aldactone] 25 mg PO DAILY@0700 Doxazosin Mesylate [Cardura] 8 mg PO HS@2200 Benazepril HCl 20 mg PO DAILY@0700 Metoprolol Tartrate [Lopressor] 100 mg PO BID-W/MEALS Warfarin Sodium [Coumadin] 7.5 mg PO TUSA Warfarin Sodium [Coumadin] 5 mg PO SUMOWETHFR Sulfamethox-Tmp 800-160Mg [Bactrim DS 800-160 mg] 1 tab PO Q12HR Discharge Medication List Allopurinol [Zyloprim] 100 mg PO HS@219912/10/15 [History] Potassium Chloride [Klor-Con 10] 10 meq PO W/SUPPER 12/10/15 [History] Pravastatin Sodium [Pravachol] 20 mg PO HS@219912/10/15 [History] Colchicine [Colcrys] 0.6 mg PO DAILY@0700 09/27/16 [History] Diltiazem Oral [Cardizem*] 30 mg PO BID@0700,2200 10/17/19 [History] Furosemide [Lasix] 40 mg PO BID@0700,1500 10/17/19 [History] Albuterol Sulfate [Albuterol Sulfate Hfa] 2 puff PO RT-Q6H PRN 11/18/19 [History] Apixaban [Eliquis] 2.5 mg PO BID #60 tablet 11/24/19 [Rx] Cephalexin [Keflex] 250 mg PO TID #12 cap 11/24/19 [Rx] Metoprolol Tartrate [Lopressor] 150 mg PO BID-W/MEALS #180 tab 11/24/19 [Rx] Sildenafil [Revatio] 20 mg PO TID #90 tab 11/24/19 [Rx] predniSONE 0 mg PO DIRECTED #20 tab 11/24/19 [Rx] Follow up Appointment(s)/Referral(s): [facility] [Provider Group] - 2 Weeks Gianluca Grissom MD [Primary Care Provider] - 1 Week Nicola Murray MD [STAFF PHYSICIAN] - 1 Week Migel Benitez MD [STAFF PHYSICIAN] - 1 Week Discharge Disposition: HOME SELF-CARE
[2019-11-24 12:01] LABS: Glucose,Whole Blood 119 mg/dL (75-99)
--- NOTE | 2019-11-24 12:35 | P.PN ---
Subjective Progress Note Date: 11/24/19 Principal diagnosis: Acute hypoxic respiratory failure Acute diastolic heart failure Severe pulmonary hypertension likely multifactorial including an element of obstructive sleep apnea Chronic renal failure Hyperkalemia Elevated PT/INR/coagulopathy on Coumadin currently on hold Morbid obesity Purulent tracheobronchitis Remote history of smoking Covid 19 negative 11/24/2019, patient remains on room air breathing comfortably denies any chest pain or epistaxis and improved no significant edema noted today some mild oozing was seen last night, respiratory status is stable patient is being planned for discharge later on today 11/23/2019, patient seen eval examined overall respiratory status remains stable patient is on room air now oxygen saturation is low 90s however deep breathing improved to mid 90s, patient is status post to the cautery for the epistaxis has been a stable overnight but this morning to start using again, pressure has been applied nurse notified may need repeat cautery if persist 11/22/2019, patient seen eval examined during the rounds labs reviewed medications reviewed have been tolerating well, oxygen continued to improve patient is diuresing very well, oxygen down to 2 L, saturation is 95%, chest x- ray from today reviewed patchy bilateral infiltrate improved overall infiltrate on the left side, patient can be switched to oral antibiotics and prednisone and next 24 hours 11/21/2019, patient seen eval examined in the Rounds labs reviewed medications reviewed remains on dopamine drip 2.5 mics Lasix is being discontinued, patient is making good amount of urine chest x-ray reviewed today shows improvement, infiltrates or better, patient have diuresed more than 6 L, swelling in the lower extremity improve, shortness of breath is improved oxygen is down to 5 L nasal cannula patient is tolerating Revatio very well, sitting upright in the bed, labs today have been reviewed white cell count is 7500 due to steroids, PT/INR is in subtherapeutic range however patient was started on oral Eliquis, potassium is improved to 5.3, beer and is slightly up creatinine continued to improve today's 56/1.91, GFR improved to 40 from 27 at the time admission, sputum culture and blood culture have been negative, will lowered her dose of S vern-Medrol critical care time spent 35 minutes 11/20/2019, patient seen eval examined in ICU still on 100% oxygen with exertion is 91-92%, patient remains on dopamine drip 2.5 mics, also on the Lasix drip 5 mg an hour, patient is putting out adequate urine chest x-ray reviewed today appears slightly better, patient is still left cough, productive sputum remains on broad-spectrum antibiotics sputum culture have been obtained and results are pending, patient remains afebrile, cardiovascular services following, for A. fib patient is on high-dose beta jacinto, patient has severe pulmonary hypertension have compared to echocardiogram performed in 2018 1 moderate, we'll start patient on theRevatio 20 mg 3 times a day, patient continued to refuse CPAP machine, INR has been therapeutic range is now will consider giving Eliquis for anticoagulation for A. fib, to be started from tomorrow, labs reviewed white cell count is 12,600 likely some affect from the steroids, patient remains high 5.6, with BUN/creatinine of 46 and 2.03, care plan discussed with the staff at length, will stop dopamine after 24 hours and possibly Lasix drip as well critical care time 35 minutes This is a 74-year-old male seen eval examined in ICU, patient has progressive shortness of breath and also lower extremity swelling for the last 2 weeks denies any fever does have intermittent cough with yellowish sputum production patient has been advised by primary service to be evaluated in the emergency department, echocardiogram performed this morning revealed normal LV function with ejection fraction of 55% along with severe LVH right ventricle and left atria dilated size of left atria is more than 40 mL per meter square, patient noted to have severe pulmonary hypertension along with severe tricuspid regurgitation I have discussed the patient to use the CPAP/BiPAP machine he has declined his BNP is 3690, INR is over 10, coated 19 negative white cell count is 12,000 potassium 5.9. Creatinine 42/2.13 down from 49-0.98 he has minimal output he is on 2.5 mics of dopamine and 20 mg every 12 furosemide he has bilateral lower extremity +3 edema, patient is also getting IV steroids breathing treatments and antibiotics Objective - Vital Signs Vital signs: Vital Signs Temp 98.0 F 11/24/19 04:30 Pulse 89 11/24/19 04:30 Resp 20 11/24/19 04:30 BP 127/82 11/24/19 04:30 Pulse Ox 97 11/24/19 04:30 Intake & Output 11/23/19 11/24/19 11/24/19 18:59 06:59 18:59 Intake Total 960 240 Balance 960 240 Weight 149.2 kg Intake: Oral 960 240 Other: # Voids 3 - Exam - Constitutional General appearance: disheveled, mild distress, morbidly obese - EENT Eyes: EOMI, PERRLA Ears: bilateral: normal - Neck Carotids: bilateral: upstroke normal Thyroid: bilateral: normal size - Respiratory Respiratory: bilateral: diminished, rales, wheezing, negative: CTA, dullness - Cardiovascular Rhythm: regular Heart sounds: normal: S1, S2 - Gastrointestinal General gastrointestinal: normal bowel sounds, soft - Integumentary Integumentary: normal turgor - Neurologic Neurologic: CNII-XII intact - Musculoskeletal Musculoskeletal: gait normal, generalized weakness, strength equal bilaterally - Psychiatric Psychiatric: A&O x's 3, appropriate affect, intact judgment & insight - Labs CBC & Chem 7: 11/21/19 04:30 11/23/19 05:59 Labs: Abnormal Lab Results - Last 24 Hours (Table) 11/23/19 11/23/19 11/24/19 Range/Units 16:34 20:23 06:31 POC Glucose (mg/dL) 106 H 162 H 128 H (75-99) mg/dL 11/24/19 Range/Units 11:36 POC Glucose (mg/dL) 119 H (75-99) mg/dL Microbiology - Last 24 Hours (Table) 11/18/19 14:42 Blood Culture - Preliminary Blood No Growth after 120 hours Assessment and Plan Assessment: Epistaxis Acute hypoxic respiratory failure Acute diastolic heart failure Severe pulmonary hypertension likely multifactorial including an element of obstructive sleep apnea Acute COPD exacerbation Chronic renal failure Hyperkalemia Elevated PT/INR/coagulopathy on Coumadin currently on hold Morbid obesity Purulent tracheobronchitis Remote history of smoking Covid 19 negative Plan: Improve breathing Agree with broad-spectrum antibiotics bronchodilators and IV steroids for now we will start tapering steroid down, can be switched to oral in next 24 hours Can come off of dopamine Continue oxygen titrated down as tolerated Continue patient on oral anticoagulation Eliquis Trial of a Revatio to be continued Patient will need BiPAP each night and when necessary during the day currently declining we'll continue to communicate with the patient Further recommendations pending plan of care as per clinical response of the patient Follow-up as outpatient basis Time with Patient: Greater than 30
[2019-11-24 13:06] VITALS: TEMP 97.5
[2019-11-24 13:07] VITALS: BMI 45.8
--- NOTE | 2019-11-24 14:35 | P.PN ---
Subjective This is Grisel Morris PA-C dictating a progress note on this patient The patient was interviewed and examined by me as well as by Dr. Bowie Case discussed with Dr. Bowie and he agrees with the plan of care HPI/interval history Patient is a 74-year-old male with a history of chronic persistent atrial fibrillation, hypertension, dyslipidemia, sleep apnea, GERD, osteoarthritis, chronic edema and anasarca who presented with complaints of shortness of breath, and productive cough. He was admitted for treatment of CHF and pneumonia. Y we switched him to oral Lasix. His rates have been in the 70s on metoprolol 150 mg twice a day and diltiazem 30 mg twice daily. Patient seen and examined sitting up in the chair. States his breathing has improved significantly. Denies any chest pain. No dizziness. Overall feeling ready to go home. EXAMINATION Patient is afebrile, pulse in the 70s, respirations 18, blood pressure 117/68, oxygen saturation 96% on room air Patient seen and examined sitting up in the chair, in no acute distress Lungs with few scattered crackles at the bases Heart is irregular, no audible murmurs No elevated JVD Mild lower extremity edema bilaterally REVIEW OF LABS, ECG No new Labs today Echocardiogram shows EF 55%, moderate concentric LVH, severely enlarged right ventricle, severely dilated LA, moderate to severe pulmonary hypertension IMPRESSION / ASSESSMENT: #1 acute hypoxic respiratory failure, multifactorial, combination of acute on chronic diastolic heart failure, right lower lobe pneumonia, and COPD exacerbation, improved #2 LUCIANA on CKD #3 atrial fibrillation, rate controlled, anticoagulated with eliquis #4 acute on chronic diastolic heart failure, EF 55-60%, improved #6 hypertension, blood pressure controlled #7 sleep apnea #8 home pulmonary hypertension #9 epistaxis status post cauterization PLAN: Continue current rate control indication regimen Increase Lasix to 60 mg in the morning and 40 mg at noon Continue anticoagulation with eliquis from a cardiology standpoint he is stable for discharge and will follow-up outpatient Objective - Vital Signs Vital signs: Vital Signs Temp 97.5 F L 11/24/19 09:25 Pulse 77 11/24/19 09:25 Resp 20 11/24/19 09:25 BP 117/68 11/24/19 09:25 Pulse Ox 96 11/24/19 09:25 Intake & Output 11/23/19 11/24/19 11/24/19 18:59 06:59 18:59 Intake Total 960 600 Balance 960 600 Weight 149.2 kg 149.2 kg Intake: Oral 960 600 Other: Voiding Method Toilet # Voids 3 2 - Labs CBC & Chem 7: 11/21/19 04:30 11/23/19 05:59 Labs: Abnormal Lab Results - Last 24 Hours (Table) 11/23/19 11/23/19 11/24/19 Range/Units 16:34 20:23 06:31 POC Glucose (mg/dL) 106 H 162 H 128 H (75-99) mg/dL 11/24/19 Range/Units 11:36 POC Glucose (mg/dL) 119 H (75-99) mg/dL Microbiology - Last 24 Hours (Table) 11/18/19 14:42 Blood Culture - Preliminary Blood No Growth after 120 hours
[2019-11-24] MEDS: SILDENAFIL 20 MG TAB PO SCH (14:52)
[2019-11-24] MEDS ORDERED: FUROSEMIDE 40 MG TAB PO SCH (16:00)
[2019-11-24 18:03] VITALS: BP 120/70; PULSE 85
[2019-11-25] MEDS ORDERED: FUROSEMIDE 20 MG TAB PO SCH (09:00)
[2019-11-25] MEDS ORDERED: FUROSEMIDE 40 MG TAB PO SCH (13:00)
--- NOTE | 2019-11-28 08:55 | CDI ---
Documentation Clarification Form Date: 11/22/2019 07:25:00 AM From: Lizzette Gamez RN, CCDS Admit Date: 11/18/2019 04:55:00 PM Patient Name: Sung Montilla Visit Number: [id number] Discharge Date: 11/24/2019 03:44:00 PM ATTENTION: The Clinical Documentation Specialists (CDI) and [facility] Coding Staff appreciate your assistance in clarifying documentation. Please respond to the clarification below the line at the bottom and electronically sign. The CDI & [facility] Coding staff will review the response and follow-up if needed. Please note: Queries are made part of the Legal Health Record. If you have any questions, please contact the author of this message via ITS. Dr. Gianluca Grissom The patient presented on 11/17 with complaints of shortness of breath with minimum exertion, productive cough, significant tachycardia and tachypnea. Clinical significance for the presenting is requested. History/Risk Factors: Atrial Fibrillation, heart Failure, Pneumonia Hypertension Clinical Indicators: 74-year-old male on 11/17 with complaint of shortness of breath. Chest x-ray showed pulmonary edema and pneumonia. Covid-19 testing was negative. 11/17 WBC 12.3, Neutrophils 10.5, BUN 49, 2.98, 11/17 Lactic acid: 1.6 Blood cultures: Pending 11/17 at 14:16 Vitals signs on admission: 74/47 116 24 97.4 100% RA; 11/17 at 14:35: 118/89 88 24 79 % RA Other Clinical Indicators: 3/4 SIRS criteria: heart rate 116, respiration 24, WBC 12.3, Infection source: Pneumonia Treatment: ICU/Telemetry Monitoring Rocephin 1 gm IV q 24 Azithromycin 500 mg IV 11/17-11/19 then 500 mg po q 24 hrs Solu-Medrol 40 IV q 8 hrs Dopamine DRIP @ 7.442 MLS HR 11/17-11/20 Albuterol inhalation 2 puff q6 prn Monitor CBC, Lytes, Daily Chest X-ray Monitor O2 Sat's (titrate) In your professional opinion, please clarify if these findings signify one of the following conditions, whether the condition is POA, and cause, if known: Condition Sepsis ruled out Sepsis, POA Severe Sepsis Septic Shock Other, please specify Unable to determine Present on Admission Yes No Identify the (suspected) organism Link or clarify if there is associated (due to/with): Organ failure Shock SIRS Criteria (2 or more of the following may indicate SIRS): -Temperature < 96.8F (36C) or > 101.0F (38.3C) -Heart Rate > 90 bpm -Respiratory Rate > 20 breaths/min or PaCO2 < 32 mmHg -White Blood Cell Count > 12,000 or < 4,000 cells/mm3 or > 10% bands -Lactate >2.0 mmol/L (>4.0 is equivalent to septic shock) (Last Revision: October 2017) sepsis poa MTDD
== END 2019-11-24 15:44 | disposition home or self-care (01) | DRG 871 ==
LOC: EC 14:14 → 2SICU 16:55 → 3SCARD 11-21 12:52
PROVIDERS: ADMIT Internal Medicine Geriatric Medicine; ATTEND Internal Medicine Geriatric Medicine
PROC: 093K7ZZ Control Bleeding in Nasal Mucosa and Soft Tissue, Via Natural or Artificial Opening (ICD-10-PCS; principal; 2019-11-22)
DX: A41.9 Sepsis, unspecified organism (principal); J96.01 Acute respiratory failure with hypoxia; I50.33 Acute on chronic diastolic (congestive) heart failure; J15.6 Pneumonia due to other Gram-negative bacteria; I13.0 Hypertensive heart and chronic kidney disease with heart failure and stage 1 through stage 4 chronic kidney disease, or unspecified chronic kidney disease; N17.9 Acute kidney failure, unspecified; Z68.42 Body mass index [BMI] 45.0-49.9, adult; J44.1 Chronic obstructive pulmonary disease with (acute) exacerbation; J44.0 Chronic obstructive pulmonary disease with (acute) lower respiratory infection; D68.9 Coagulation defect, unspecified; I48.19 Other persistent atrial fibrillation; I27.20 Pulmonary hypertension, unspecified; G47.33 Obstructive sleep apnea (adult) (pediatric); E87.5 Hyperkalemia; M13.0 Polyarthritis, unspecified; K21.9 Gastro-esophageal reflux disease without esophagitis; I07.1 Rheumatic tricuspid insufficiency; J34.2 Deviated nasal septum; R04.0 Epistaxis; M1A.9XX0 Chronic gout, unspecified, without tophus (tophi); Z20.828 Contact with and (suspected) exposure to other viral communicable diseases; T38.0X5A Adverse effect of glucocorticoids and synthetic analogues, initial encounter; R31.0 Gross hematuria; E78.5 Hyperlipidemia, unspecified; E66.01 Morbid (severe) obesity due to excess calories; N18.3 Chronic kidney disease, stage 3 (moderate); Z96.653 Presence of artificial knee joint, bilateral; Z87.01 Personal history of pneumonia (recurrent); Z86.14 Personal history of Methicillin resistant Staphylococcus aureus infection; Z87.891 Personal history of nicotine dependence; Z82.3 Family history of stroke; Z79.899 Other long term (current) drug therapy; Z79.01 Long term (current) use of anticoagulants; Z99.89 Dependence on other enabling machines and devices; Z90.49 Acquired absence of other specified parts of digestive tract; Z81.8 Family history of other mental and behavioral disorders
CPT/HCPCS: 36415; 36600; 71045; 80048; 80053; 82550; 82805; 83605; 83615; 83735; 83880; 84100; 84134; 84145; 85025; 85027; 85379; 85610; 85730; 86140; 87040; 87070; 87205; 87502; 87635; 93005; 93306; 94640; 94760; 96365; 96375; 99291

== ENCOUNTER 2019-12-14 10:19 | Inpatient (IN) | payer MEDICARE, BC ==
--- NOTE | 2019-12-14 11:16 | ED ---
General Adult HPI - General Chief complaint: Shortness of Breath Stated complaint: SOB Time Seen by Provider: 12/14/19 10:28 Source: patient, RN notes reviewed, old records reviewed Mode of arrival: ambulatory Limitations: no limitations - History of Present Illness Initial comments: 74-year-old male presenting from the doctor's office with hypoxia, worsening dyspnea over the past several weeks. He was recently admitted with congestive heart failure. He has history of CHF, CAD, history of chronic kidney disease. He is on high dose of Lasix at home, states he takes 160 mg in the morning and 80 mg at night. Despite this he's had increased dyspnea, lower extremity edema. He denies central chest pain. Denies fever. His cough is productive of brown sputum. - Related Data Home Medications Medication Instructions Recorded Confirmed Allopurinol [Zyloprim] 100 mg PO HS@0 12/10/15 11/18/19 Potassium Chloride [Klor-Con 10] 10 meq PO W/SUPPER 12/10/15 11/18/19 Pravastatin Sodium [Pravachol] 20 mg PO HS@2200 12/10/15 11/18/19 Colchicine [Colcrys] 0.6 mg PO DAILY@0700 09/27/16 11/18/19 Diltiazem Oral [Cardizem*] 30 mg PO BID@0700,2200 10/17/19 11/18/19 Albuterol Sulfate [Albuterol 2 puff PO RT-Q6H PRN 11/18/19 11/18/19 Sulfate Hfa] Previous Rx's Medication Instructions Recorded Apixaban [Eliquis] 2.5 mg PO BID #60 tablet 11/24/19 Cephalexin [Keflex] 250 mg PO TID #12 cap 11/24/19 Furosemide [Lasix] 40 mg PO BID@0900,1600 #90 tab 11/24/19 Furosemide [Lasix] 60 mg PO DAILY #90 tab 11/24/19 Metoprolol Tartrate [Lopressor] 150 mg PO BID-W/MEALS #180 tab 11/24/19 Sildenafil [Revatio] 20 mg PO TID #90 tab 11/24/19 predniSONE 0 mg PO DIRECTED #20 tab 11/24/19 Allergies Allergy/AdvReac Type Severity Reaction Status Date / Time No Known Allergies Allergy Verified 12/14/19 10:25 Review of Systems ROS Statement: Those systems with pertinent positive or pertinent negative responses have been documented in the HPI. ROS Other: All systems not noted in ROS Statement are negative. Past Medical History Past Medical History: Atrial Fibrillation, Heart Failure, GERD/Reflux, Hyperlipidemia, Hypertension, Osteoarthritis (OA), Pneumonia, Prostate Disorder, Renal Disease, Sleep Apnea/CPAP/BIPAP, Vascular Disorder Additional Past Medical History / Comment(s): Acute respiratory failure 2ndary to interstitial pneumonia/sepsis/CHF, chronic lower extremity edema/discolorat ion, venous insufficiency, CHLOE uses CPap on occasion, chronic low back pain, generalized arthritis, gout bilateral feet, 2018 MRSA infection R buttock with sepsis. History of Any Multi-Drug Resistant Organisms: MRSA Date of last positivie culture/infection: 04/08/18 MDRO Source:: buttock wound Past Surgical History: Cholecystectomy, Heart Catheterization, Joint Replacement Additional Past Surgical History / Comment(s): 02/19/17 diagnostic cardiac cath, bilateral total knee arthroplasty, ventral hernia repair, colonoscopies, I&D R buttock. Past Anesthesia/Blood Transfusion Reactions: No Reported Reaction Past Psychological History: No Psychological Hx Reported Smoking Status: Former smoker Past Alcohol Use History: None Reported Past Drug Use History: None Reported - Past Family History Father Family Medical History: CVA/TIA Additional Family Medical History / Comment(s): Dad at age 89 from stroke. Mother Family Medical History: Dementia Additional Family Medical History / Comment(s): Mother is alive at age 90 with dementia. Sister(s) Additional Family Medical History / Comment(s): Patient has 2 sisters with no major medical problems. Patient does not have any brothers. Patient has 2 adult children with no major medical problems. General Exam Limitations: no limitations General appearance: alert, in no apparent distress Head exam: Present: atraumatic, normocephalic Eye exam: Present: normal appearance, PERRL ENT exam: Present: normal exam Neck exam: Present: normal inspection. Absent: tenderness, meningismus Respiratory exam: Present: respiratory distress, rales, decreased breath sounds Cardiovascular Exam: Present: regular rate, irregular rhythm GI/Abdominal exam: Present: soft, distended. Absent: tenderness, guarding, rebound Extremities exam: Present: pedal edema Neurological exam: Present: alert, oriented X3, CN II-XII intact. Absent: motor sensory deficit Psychiatric exam: Present: normal affect, normal mood Skin exam: Present: warm, dry, intact. Absent: cyanosis, diaphoretic Course Vital Signs 12/14/19 12/14/19 10:21 11:00 Temperature 97.8 F Pulse Rate 81 69 Respiratory 22 18 Rate Blood Pressure 111/71 122/82 O2 Sat by Pulse 93 L 97 Oximetry EKG Findings - EKG Comments: EKG Findings:: EKG: Atrial fibrillation, left axis deviation, right bundle- branch block, rate of 71, QRS duration 140, QTC 5:30, no ST segment elevation. Medical Decision Making - Medical Decision Making 74-year-old male history of CHF presenting with dyspnea, hypoxia, presenting from primary care office. Recent admission with pneumonia and CHF. Patient denying fever. Stating his cough is productive of brown sputum. He has a normal CBC, he has a potassium 3.1 which is replaced in the emergency department, creatinine is 1.7 which is baseline. He has a normal lactic acid. He has a significantly elevated BNP at 8240. His troponin is minimally elevated 0.041 with no active chest pain. The patient is anticoagulated on Eliquis at baseline. Chest x-ray showing concern for both CHF as well as pneumonia. He is given a dose of antibiotics and Lasix in the emergency department. He will be admitted with both pulmonology and cardiology on consult. Case is discussed with Dr. Grissom who will admit. - Lab Data Result diagrams: 12/14/19 10:52 12/14/19 10:52 Lab Results 12/14/19 12/14/19 12/14/19 Range/Units 10:52 10:52 10:52 WBC 7.2 (3.8-10.6) k/uL RBC 4.50 (4.30-5.90) m/uL Hgb 13.2 (13.0-17.5) gm/dL Hct 40.2 (39.0-53.0) % MCV 89.4 (80.0-100.0) fL MCH 29.5 (25.0-35.0) pg MCHC 32.9 (31.0-37.0) g/dL RDW 15.7 H (11.5-15.5) % Plt Count 164 (150-450) k/uL Neutrophils % 76 % Lymphocytes % 12 % Monocytes % 7 % Eosinophils % 3 % Basophils % 0 % Neutrophils # 5.5 (1.3-7.7) k/uL Lymphocytes # 0.9 L (1.0-4.8) k/uL Monocytes # 0.5 (0-1.0) k/uL Eosinophils # 0.2 (0-0.7) k/uL Basophils # 0.0 (0-0.2) k/uL PT 11.5 (9.0-12.0) sec INR 1.1 (<1.2) APTT 25.5 (22.0-30.0) sec Sodium 137 (137-145) mmol/L Potassium 3.1 L (3.5-5.1) mmol/L Chloride 94 L (98-107) mmol/L Carbon Dioxide 32 H (22-30) mmol/L Anion Gap 11 mmol/L BUN 36 H (9-20) mg/dL Creatinine 1.71 H (0.66-1.25) mg/dL Est GFR (CKD-EPI)AfAm 45 (>60 ml/min/1.73 sqM) Est GFR (CKD-EPI)NonAf 39 (>60 ml/min/1.73 sqM) Glucose 119 H (74-99) mg/dL Plasma Lactic Acid Virgilio (0.7-2.0) mmol/L Calcium 8.9 (8.4-10.2) mg/dL Magnesium 1.9 (1.6-2.3) mg/dL Total Bilirubin 0.9 (0.2-1.3) mg/dL AST 23 (17-59) U/L ALT 17 (4-49) U/L Alkaline Phosphatase 90 (38-126) U/L Troponin I (0.000-0.034) ng/mL NT-Pro-B Natriuret Pep pg/mL Total Protein 6.6 (6.3-8.2) g/dL Albumin 3.7 (3.5-5.0) g/dL 12/14/19 12/14/19 12/14/19 Range/Units 10:52 10:52 10:52 WBC (3.8-10.6) k/uL RBC (4.30-5.90) m/uL Hgb (13.0-17.5) gm/dL Hct (39.0-53.0) % MCV (80.0-100.0) fL MCH (25.0-35.0) pg MCHC (31.0-37.0) g/dL RDW (11.5-15.5) % Plt Count (150-450) k/uL Neutrophils % % Lymphocytes % % Monocytes % % Eosinophils % % Basophils % % Neutrophils # (1.3-7.7) k/uL Lymphocytes # (1.0-4.8) k/uL Monocytes # (0-1.0) k/uL Eosinophils # (0-0.7) k/uL Basophils # (0-0.2) k/uL PT (9.0-12.0) sec INR (<1.2) APTT (22.0-30.0) sec Sodium (137-145) mmol/L Potassium (3.5-5.1) mmol/L Chloride (98-107) mmol/L Carbon Dioxide (22-30) mmol/L Anion Gap mmol/L BUN (9-20) mg/dL Creatinine (0.66-1.25) mg/dL Est GFR (CKD-EPI)AfAm (>60 ml/min/1.73 sqM) Est GFR (CKD-EPI)NonAf (>60 ml/min/1.73 sqM) Glucose (74-99) mg/dL Plasma Lactic Acid Virgilio 1.4 (0.7-2.0) mmol/L Calcium (8.4-10.2) mg/dL Magnesium (1.6-2.3) mg/dL Total Bilirubin (0.2-1.3) mg/dL AST (17-59) U/L ALT (4-49) U/L Alkaline Phosphatase (38-126) U/L Troponin I 0.041 H* (0.000-0.034) ng/mL NT-Pro-B Natriuret Pep 8240 pg/mL Total Protein (6.3-8.2) g/dL Albumin (3.5-5.0) g/dL Critical Care Time Critical Care Time: Yes Total Critical Care Time: 35 Disposition Clinical Impression: Congestive heart failure, Pneumonia Disposition: ADMITTED IP TO THIS HOSP Condition: Stable Is patient prescribed a controlled substance at d/c from ED?: No Referrals: Gianluca Grissom MD [Primary Care Provider] - 1-2 days Decision to Admit Reason: Admit from EC Decision Date: 12/14/19 Decision Time: 12:31
--- NOTE | 2019-12-14 11:18 | XR ---
EXAMINATION TYPE: XR chest 1V portable DATE OF EXAM: 12/14/2019 HISTORY: Shortness of breath. COMPARISON: 11/22/2019 TECHNIQUE: Single view of the chest is submitted. FINDINGS: Demonstrated are scattered senescent parenchymal change. Increased patchy density right lower lobe may reflect developing pneumonia. Correlate clinically. The heart is stable. Hilar and mediastinal structures are within normal limits. Degenerative changes are seen of the dorsal spine. IMPRESSION: 1. Increased patchy density right lower lobe may reflect developing pneumonia. Correlate clinically.
[2019-12-14 11:26] LABS: Basophils % (A) 0 %; Eosinophils # (A) 0.2 k/uL (0-0.7); Eosinophils % (A) 3 %; HCT 40.2 % (39.0-53.0); HGB 13.2 gm/dL (13.0-17.5); Lymphocytes # (A) 0.9 k/uL (1.0-4.8); Lymphocytes % (A) 12 %; MCH 29.5 pg (25.0-35.0); MCHC 32.9 g/dL (31.0-37.0); MCV 89.4 fL (80.0-100.0); Mean Platelet Volume 6.7; Monocytes # (A) 0.5 k/uL (0-1.0); Monocytes % (A) 7 %; Neutrophils # (A) 5.5 k/uL (1.3-7.7); Neutrophils % (A) 76 %; Platelet Count 164 k/uL (150-450); RDW 15.7 % (11.5-15.5); WBC 7.2 k/uL (3.8-10.6)
[2019-12-14 11:28] LABS: Albumin 3.7 g/dL (3.5-5.0); Calcium 8.9 mg/dL (8.4-10.2); Magnesium 1.9 mg/dL (1.6-2.3); Potassium 3.1 mmol/L (3.5-5.1); Total Bilirubin 0.9 mg/dL (0.2-1.3); Total Protein 6.6 g/dL (6.3-8.2)
[2019-12-14 11:36] LABS: INR 1.1 (<1.2); Partial Thromboplastin Time 25.5 sec (22.0-30.0); Prothrombin Time 11.5 sec (9.0-12.0)
[2019-12-14] MEDS ORDERED: POTASSIUM CHLORIDE ER 20 MEQ TAB.ER PO STA (11:48)
[2019-12-14] MEDS ORDERED: FUROSEMIDE 10 MG/ML 10 ML VIAL IV STA (11:50)
[2019-12-14] MEDS ORDERED: cefTRIAXone IN SWFI 1,000 MG/10 ML SYRINGE IVP STA (11:50)
[2019-12-14] MEDS ORDERED: NALOXONE 0.4 MG/ML 1 ML VIAL IV PRN (12:28)
--- NOTE | 2019-12-14 13:53 | P.CRDCN ---
History of Present Illness Consult date: 12/14/19 Chief complaint: Shortness of breath History of present illness: This is a very pleasant 74-year-old gentleman who sees Dr. Dominguez in the office as an outpatient with a past medical history significant for chronic diastolic congestive heart failure, long-standing persistent atrial fibrillation on oral anticoagulation, morbid obesity, sleep apnea, as well as multiple comorbid conditions, presented to the hospital again with increasing shortness of breath. The patient just was discharged from the hospital recently after he was admitted with acute exacerbation of congestive heart failure secondary to diastole dysfunction. This time he presented complaining of increasing shortness of breath with exertion without any chest pain or chest discomfort. No lower extremities edema. No dizziness or lightheadedness or syncope. The chest x-ray showed findings consistent with CHF. ProBNP came in to be at 8000. The physical examination revealed bilateral crackles was mild bilateral lower extremities edema. The patient wasn't started on Lasix again. He stated that he was compliant with all of his medications including diuretics. He states also that he was compliant with his diet and not eating salt. This time he did not have any symptoms of chest pain or chest discomfort. The troponin came in to be slightly elevated but the kidney function is abnormal with a GFR at 39. The EKG showed atrial fibrillation was controlled heart rate without any ischemic ST or T-wave abnormalities. Please note that the patient had an echocardiogram in November 2019 when he was in the hospital and that revealed normal left ventricle systolic function with evidence of hypertensive heart disease and evidence of moderate to severe tricuspid regurgitation and severe pulmonary hypertension. Past Medical History Past Medical History: Atrial Fibrillation, Heart Failure, GERD/Reflux, Hyperlipidemia, Hypertension, Osteoarthritis (OA), Pneumonia, Prostate Disorder, Renal Disease, Sleep Apnea/CPAP/BIPAP, Vascular Disorder Additional Past Medical History / Comment(s): Acute respiratory failure 2ndary to interstitial pneumonia/sepsis/CHF, chronic lower extremity edema/discoloration, venous insufficiency, CHLOE uses CPap on occasion, chronic low back pain, generalized arthritis, gout bilateral feet, 2018 MRSA infection R buttock with sepsis. History of Any Multi-Drug Resistant Organisms: MRSA Date of last positivie culture/infection: 04/08/18 MDRO Source:: buttock wound Past Surgical History: Cholecystectomy, Heart Catheterization, Joint Replacement Additional Past Surgical History / Comment(s): 02/19/17 diagnostic cardiac cath, bilateral total knee arthroplasty, ventral hernia repair, colonoscopies, I&D R buttock. Past Anesthesia/Blood Transfusion Reactions: No Reported Reaction Past Psychological History: No Psychological Hx Reported Smoking Status: Former smoker Past Alcohol Use History: None Reported Past Drug Use History: None Reported - Past Family History Father Family Medical History: CVA/TIA Additional Family Medical History / Comment(s): Dad at age 89 from stroke. Mother Family Medical History: Dementia Additional Family Medical History / Comment(s): Mother is alive at age 90 with dementia. Sister(s) Additional Family Medical History / Comment(s): Patient has 2 sisters with no major medical problems. Patient does not have any brothers. Patient has 2 adult children with no major medical problems. Medications and Allergies Home Medications Medication Instructions Recorded Confirmed Type Allopurinol [Zyloprim] 100 mg PO HS@219912/10/15 11/18/19 History Potassium Chloride [Klor-Con 10] 10 meq PO W/SUPPER 12/10/15 11/18/19 History Pravastatin Sodium [Pravachol] 20 mg PO HS@219912/10/15 11/18/19 History Colchicine [Colcrys] 0.6 mg PO DAILY@0700 09/27/16 11/18/19 History Diltiazem Oral [Cardizem*] 30 mg PO BID@0700,2200 10/17/19 11/18/19 History Albuterol Sulfate [Albuterol 2 puff PO RT-Q6H PRN 11/18/19 11/18/19 History Sulfate Hfa] Apixaban [Eliquis] 2.5 mg PO BID #60 tablet 11/24/19 Rx Cephalexin [Keflex] 250 mg PO TID #12 cap 11/24/19 Rx Furosemide [Lasix] 40 mg PO BID@0900,1600 #90 tab 11/24/19 Rx Furosemide [Lasix] 60 mg PO DAILY #90 tab 11/24/19 Rx Metoprolol Tartrate [Lopressor] 150 mg PO BID-W/MEALS #180 tab 11/24/19 Rx Sildenafil [Revatio] 20 mg PO TID #90 tab 11/24/19 Rx predniSONE 0 mg PO DIRECTED #20 tab 11/24/19 Rx Allergies Allergy/AdvReac Type Severity Reaction Status Date / Time No Known Allergies Allergy Verified 12/14/19 10:25 Physical Exam Vitals: Vital Signs Temp Pulse Resp BP Pulse Ox 12/14/19 12:30 73 22 118/82 95 12/14/19 12:00 72 23 127/72 93 L 12/14/19 11:30 74 20 110/84 96 12/14/19 11:00 69 18 122/82 97 12/14/19 10:21 97.8 F 81 22 111/71 93 L Intake and Output 12/13/19 12/14/19 12/14/19 22:59 06:59 14:59 Other: Weight 147.418 kg - Constitutional General appearance: no acute distress - Respiratory Respiratory: bilateral: rales - Cardiovascular Rhythm: irregularly irregular Heart sounds: normal: S1, S2 Abnormal Heart Sounds: systolic murmur Results 12/14/19 10:52 12/14/19 10:52 Cardiac Enzymes 12/14/19 12/14/19 Range/Units 10:52 10:52 AST 23 (17-59) U/L Troponin I 0.041 H* (0.000-0.034) ng/mL Coagulation 12/14/19 Range/Units 10:52 PT 11.5 (9.0-12.0) sec APTT 25.5 (22.0-30.0) sec CBC 12/14/19 Range/Units 10:52 WBC 7.2 (3.8-10.6) k/uL RBC 4.50 (4.30-5.90) m/uL Hgb 13.2 (13.0-17.5) gm/dL Hct 40.2 (39.0-53.0) % Plt Count 164 (150-450) k/uL Comprehensive Metabolic Panel 12/14/19 Range/Units 10:52 Sodium 137 (137-145) mmol/L Potassium 3.1 L (3.5-5.1) mmol/L Chloride 94 L (98-107) mmol/L Carbon Dioxide 32 H (22-30) mmol/L BUN 36 H (9-20) mg/dL Creatinine 1.71 H (0.66-1.25) mg/dL Glucose 119 H (74-99) mg/dL Calcium 8.9 (8.4-10.2) mg/dL AST 23 (17-59) U/L ALT 17 (4-49) U/L Alkaline Phosphatase 90 (38-126) U/L Total Protein 6.6 (6.3-8.2) g/dL Albumin 3.7 (3.5-5.0) g/dL Current Medications Generic Name Dose Route Start Last Admin Trade Name Freq PRN Reason Stop Dose Admin Furosemide 60 mg 12/14/19 20:00 Lasix IV Q8H ROGER Naloxone HCl 0.2 mg 12/14/19 12:28 Narcan IV Q2M PRN Opioid Reversal Intake and Output 12/13/19 12/14/19 12/14/19 22:59 06:59 14:59 Other: Weight 147.418 kg Patient Weight 12/15/19 06:59 Weight 147.418 kg 12/14/19 10:52 12/14/19 10:52 Assessment and Plan Assessment: Assessment #1 acute exacerbation of congestive heart failure secondary to diastole dysfunction #2 mildly abnormal troponin likely related to renal dysfunction #3 long-standing persistent atrial fibrillation was controlled heart rate #4 morbid obesity #5 severe pulmonary hypertension #6 sleep apnea Plan #1 continue the current dose of Lasix IV #2 continue monitor the kidney function and electrolytes #3 no need to repeat the echocardiogram #4 follow-up with the serial cardiac enzymes #5 consider medical treatment for the abnormal troponin #6 follow-up with the patient Thank you for allowing us participate in the patient's care Thank you for allowing us participate in the patient's care
[2019-12-14] MEDS ORDERED: ALBUTEROL HFA INHALER INHALATION PRN (21:17)
[2019-12-14] MEDS: POTASSIUM CHLORIDE ER 10 MEQ TAB.ER.PRT PO SCH (21:27)
[2019-12-14] MEDS: PRAVASTATIN SODIUM 20 MG TAB PO SCH (21:28)
[2019-12-14] MEDS: DILTIAZEM ORAL 30 MG TAB PO SCH (21:28)
[2019-12-14] MEDS: FUROSEMIDE 10 MG/ML 10 ML VIAL IV SCH (21:28)
[2019-12-14] MEDS: METOPROLOL TARTRATE 50 MG TAB PO SCH (21:28)
[2019-12-14] MEDS: ALLOPURINOL 100 MG TAB PO SCH (21:28)
[2019-12-14] MEDS: APIXABAN 2.5 MG TABLET PO SCH (22:43)
[2019-12-14] MEDS: SILDENAFIL 20 MG TAB PO SCH (22:43)
--- NOTE | 2019-12-14 23:31 | P.HPIM ---
History of Present Illness H&P Date: 12/14/19 Chief Complaint: Severe dyspnea and shortness of breath, CHF exacerbation, COPD, Wilfrido hill 74-year-old male one of my office patient with history of morbid obesity who seen Dr. Dominguez on cardiology regular basis who was in the hospital a few weeks ago for severe dyspnea and shortness of breath was treated for congestive heart failure and COPD along with Wilfrido hill with RVR and has done well has been doing well last few weeks till the last 5 days when he become more dyspneic and hypoxic having more palpitation more water retention has gain over 20 pound in the last 2 weeks his symptoms become a lot worse today ended up coming to the office was seen and evaluated found to be quite dyspneic had quite bed watch retention his pulse ox was running in the low 80 despite 3 L of O2 he was only around 92 percentile patient was sent to the emergency department at [facility] his BNP was over 8000 patient chest x-ray showed sign and symptom of congestive heart failure with fluid retention his troponin was slightly elevated his GFR was 39 EKG showed A. sergio with pulse rate running in the 90s without any major ST or T wave abnormality. Patient was started on IV diuretics fluid restriction O2 updraft treatment and will be admitted to the hospital. Review of Systems CONSTITUTIONAL: More libido obesity in mild respiratory distress and significant dyspnea. EYES: No icterus sclerae, no conjunctivitis. EARS, NOSE, MOUTH, THROAT, and FACE: No sore throat, lymphadenopathy, carotid bruits or deformity. RESPIRATORY: Positive dyspnea positive shortness of breath positive cough and wheezes. CARDIOVASCULAR: No angina symptom with positive PND orthopnea palpitation with fluid retention worsening cough and hypoxia GASTROINTESTINAL: No Abd pain, Nausea or vomiting, no Diarrhea or constipation, No GI Bleed, no distention or masses. GENITOURINARY: Negative for Hematuria or UTI, no kidney stones. INTEGUMENT/BREAST: Significant edema arthritis and discoloration of the lower extremity. HEMATOLOGIC/LYMPHATIC: Negative for bleed or purpura. MUSCULOSKELTAL: Negative for Myalgia or arthralgia. NEURLOGICAL: No LOC, Sz or syncope, blurred vision dizziness or abnormality.. BEHAVIORAL/PSYCH: Negative. ENDOCRINE: Negative. Past Medical History Past Medical History: Atrial Fibrillation, Heart Failure, GERD/Reflux, Hyperlipidemia, Hypertension, Osteoarthritis (OA), Pneumonia, Prostate Disorder, Renal Disease, Sleep Apnea/CPAP/BIPAP, Vascular Disorder Additional Past Medical History / Comment(s): Acute respiratory failure 2ndary to interstitial pneumonia/sepsis/CHF, chronic lower extremity edema/discoloration, venous insufficiency, CHLOE uses CPap on occasion, chronic low back pain, generalized arthritis, gout bilateral feet, 2018 MRSA infection R buttock with sepsis. History of Any Multi-Drug Resistant Organisms: MRSA Date of last positivie culture/infection: 04/08/18 MDRO Source:: buttock wound Past Surgical History: Cholecystectomy, Heart Catheterization, Joint Replacement Additional Past Surgical History / Comment(s): 02/19/17 diagnostic cardiac cath, bilateral total knee arthroplasty, ventral hernia repair, colonoscopies, I&D R buttock. Past Anesthesia/Blood Transfusion Reactions: No Reported Reaction Past Psychological History: No Psychological Hx Reported Smoking Status: Former smoker Past Alcohol Use History: None Reported Past Drug Use History: None Reported - Past Family History Father Family Medical History: CVA/TIA Additional Family Medical History / Comment(s): Dad at age 89 from stroke. Mother Family Medical History: Dementia Additional Family Medical History / Comment(s): Mother is alive at age 90 with dementia. Sister(s) Additional Family Medical History / Comment(s): Patient has 2 sisters with no major medical problems. Patient does not have any brothers. Patient has 2 adult children with no major medical problems. Medications and Allergies Home Medications Medication Instructions Recorded Confirmed Type Allopurinol [Zyloprim] 100 mg PO HS@2200 12/10/15 12/14/19 History Potassium Chloride [Klor-Con 10] 10 meq PO W/SUPPER 12/10/15 12/14/19 History Pravastatin Sodium [Pravachol] 20 mg PO BID 12/10/15 12/14/19 History Colchicine [Colcrys] 0.6 mg PO DAILY@0700 09/27/16 12/14/19 History Diltiazem Oral [Cardizem*] 60 mg PO BID@0700,0 10/17/19 12/14/19 History Albuterol Sulfate [Albuterol 2 puff PO RT-Q6H PRN 11/18/19 12/14/19 History Sulfate Hfa] Apixaban [Eliquis] 2.5 mg PO BID #60 tablet 11/24/19 12/14/19 Rx Metoprolol Tartrate [Lopressor] 150 mg PO BID-W/MEALS #180 tab 11/24/19 12/14/19 Rx Furosemide [Lasix] 20 mg PO DAILY 12/14/19 12/14/19 History Furosemide [Lasix] 40 mg PO BID 12/14/19 12/14/19 History Mucinex (Unknown Strength) 1 tab PO QAM PRN 12/14/19 12/14/19 History Sildenafil Citrate [Sildenafil] 20 mg PO BID 12/14/19 12/14/19 History Allergies Allergy/AdvReac Type Severity Reaction Status Date / Time No Known Allergies Allergy Verified 12/14/19 21:30 Physical Exam Vitals: Vital Signs Temp Pulse Pulse Resp BP BP Pulse Ox 12/14/19 20:00 97.7 F 94 18 126/73 94 L 12/14/19 12:30 73 22 118/82 95 12/14/19 12:00 72 23 127/72 93 L 12/14/19 11:30 74 20 110/84 96 12/14/19 11:00 69 18 122/82 97 12/14/19 10:21 97.8 F 81 22 111/71 93 L Intake and Output 12/14/19 12/14/19 12/14/19 06:59 14:59 22:59 Other: Weight 147.418 kg General Appearance: Alert, cooperative, morbid obesity with mild respiratory distress. Neck HEENT: Supple, no lymphadenopathy, no thyroid enlargement, no carotid bruits. Lungs: Decreased breath some bilaterally fine rhonchi positive crackles in the bases positive mild inspiratory expiratory wheezes. Chest Wall: Decrease expansion with deep inspiration no tenderness and no deformity was found on exam, no costochondral pain or discomfort. Heart: Irregular rate and rhythm, S1, S2 normal positive S3 positive 5 cm JVD with systolic murmur. Back: Symmetric, no curvature, ROM normal, no CVA tenderness. Abdomen: Soft, non-tender, bowel sounds active all four quadrants, no masses, no organomegaly. Extremities: 2+ edema slight discoloration from the knee down significant arthritis in both knees. Pulses: 2+ and symmetric. Skin: Skin color, texture, tugor normal, no rashes or lesions. Neurologic: Alert oriented x3 cranial nerves II through XII intact, no motor deficit, no abnormal balance or gait. Results CBC & Chem 7: 12/14/19 10:52 12/14/19 10:52 Labs: Abnormal Lab Results - Last 24 Hours (Table) 12/14/19 12/14/19 12/14/19 Range/Units 10:52 10:52 10:52 RDW 15.7 H (11.5-15.5) % Lymphocytes # 0.9 L (1.0-4.8) k/uL Potassium 3.1 L (3.5-5.1) mmol/L Chloride 94 L (98-107) mmol/L Carbon Dioxide 32 H (22-30) mmol/L BUN 36 H (9-20) mg/dL Creatinine 1.71 H (0.66-1.25) mg/dL Glucose 119 H (74-99) mg/dL Troponin I 0.041 H* (0.000-0.034) ng/mL Thrombosis Risk Factor Assmnt - DVT/VTE Prophylaxis DVT/VTE Prophylaxis: Pharmacologic Prophylaxis ordered, Mechanical Prophylaxis ordered - Choose All That Apply Any of the Below Risk Factors Present?: Yes Each Factor Represents 1 point: Obesity (BMI >25), Serious lung disease incl. pneumonia (< 1month), Swollen legs (current) Other Risk Factors: Yes Each Risk Factor Represents 2 Points: Age 61-74 years Other congenital or acquired thrombophilia - If yes, enter type in comment: No Thrombosis Risk Factor Assessment Total Risk Factor Score: 5 Thrombosis Risk Factor Assessment Level: High Risk Assessment and Plan Assessment: 1 acute respiratory failure: Combination of diastolic congestive heart failure acute with COPD exacerbation and acute by basilar pneumonia. 2 CHF exacerbation mostly acute diastolic with recurrent episode, patient will be on 40 mg of IV Lasix every 8 hours watch for any water retention and urine output for now and daily weight. Consult cardiology review his echocardiogram from last time also look for any secondary involvement such as acute pulmonary edema secondary to unstable angina and recurrent chest pain which can be part of the symptoms patient is doing with specially with the recurrent episode sure. This time. 3 COPD with mild excessive patient: Patient be hospitalized will consult Dr. Dwyer of patient will be on Solu-Medrol along with DuoNeb and Pulmicort. 4 A. fib with RVR: Patient pulse rates under control still on anticoagulation. 5 acute kidney injury: With worsening BUN/creatinine GFR down to 39 continue to watch kidney function and watch for any obstructive uropathy. 6 elevated troponin with possible non-ST AL: Repeat CK with troponin 2 more times in the next few hours watch for any elevation might require further attention. 7 Bibasilar pneumonia specially with chronic COPD patient will start Rocephin and azithromycin for now. 8 hypertension: Remain on metoprolol titrate 2050 mg twice a day along with Cardizem 60 mg twice a day. 9 hyperglycemia: With borderline diabetes and will cause steroid-induced diab etes continue patient with Accu-Chek with sliding scales coverage. 10 hyperlipidemia: Continue patient on pravastatin 40 mg daily. 12 severe obstructive sleep apnea: Patient was started on BiPAP at home apparently is not using it many hours of the day see very is any further adjustment require to be done or if patient can benefit from official sleep study for O2 adjusted CPAP. Compliance to use oxygen and BiPAP still a problem. 13 gout: Patient will be on Zyloprim and colchicine. 14 chronic vascular cellulitis with significant swelling of the lower extremity after the edema is down is still having any significant cellulitic event will use Silvadene cream and continue doxycycline for 2 weeks. 15 GI prophylaxis: Patient be on Pepcid 20 mg daily. 16 DVT prophylaxis: Patient is on anticoagulation with Eliquis 2.5 mg twice a day. CODE STATUS: Full code. Admit patient to the hospital for over 2 night inpatient stay.
[2019-12-15] MEDS: AZITHROMYCIN 500 MG in SODIUM CHLORIDE 0.9% 250 ML IVPB SCH ×2 (00:04→21:42)
[2019-12-15] MEDS: methylPREDNISolone SOD SUCCI 40 MG/ML 1 ML VIAL IV SCH ×4 (00:05→23:14)
[2019-12-15] MEDS: FUROSEMIDE 10 MG/ML 10 ML VIAL IV SCH ×3 (03:41→20:06)
[2019-12-15 06:02] LABS: Glucose,Whole Blood 201 mg/dL (75-99)
[2019-12-15] MEDS: DILTIAZEM ORAL 30 MG TAB PO SCH ×2 (06:07→20:06)
[2019-12-15] MEDS: COLCHICINE 0.6 MG EACH PO SCH (06:08)
[2019-12-15] MEDS: METOPROLOL TARTRATE 50 MG TAB PO SCH ×2 (06:08→17:18)
[2019-12-15 07:59] LABS: Basophils % (A) 0 %; Eosinophils % (A) 1 %; HCT 44.8 % (39.0-53.0); HGB 13.9 gm/dL (13.0-17.5); Hypochromasia Slight; Lymphocytes # (A) 0.3 k/uL (1.0-4.8); Lymphocytes % (A) 6 %; MCH 28.1 pg (25.0-35.0); MCV 90.7 fL (80.0-100.0); Mean Platelet Volume 6.9; Monocytes # (A) 0.1 k/uL (0-1.0); Monocytes % (A) 2 %; Neutrophils # (A) 4.1 k/uL (1.3-7.7); Neutrophils % (A) 90 %; Platelet Count 170 k/uL (150-450); RBC 4.94 m/uL (4.30-5.90); RDW 15.5 % (11.5-15.5); WBC 4.5 k/uL (3.8-10.6)
[2019-12-15 08:07] LABS: Albumin 3.9 g/dL (3.5-5.0); Calcium 9.1 mg/dL (8.4-10.2); Potassium 3.5 mmol/L (3.5-5.1); Total Bilirubin 0.7 mg/dL (0.2-1.3); Total Protein 6.9 g/dL (6.3-8.2)
[2019-12-15] MEDS: IPRATROPIUM-ALBUTEROL 3 ML NEB INHALATION SCH ×4 (08:55→19:24)
[2019-12-15] MEDS: BUDESONIDE 0.5 MG/2 ML NEBU INHALATION SCH ×2 (08:55→19:23)
[2019-12-15] MEDS: FAMOTIDINE 20 MG TAB PO SCH (09:12)
[2019-12-15] MEDS: APIXABAN 2.5 MG TABLET PO SCH (10:11)
--- NOTE | 2019-12-15 11:38 | NM ---
EXAMINATION TYPE: NM pul vent and perfuse DATE OF EXAM: 12/15/2019 COMPARISON: Radiograph 12/14/2019 HISTORY: 74-year-old male assess for PE, difficulty breathing, cough, wheezing, bronchitis, pneumonia , CHF. TECHNIQUE: Utilizing inhalation of 38.4 mCi Tc 99m DTPA aerosol and intravenous injection of 5.3 mCi of Tc 99m MAA, ventilation and perfusion images are acquired post injection in multiple projections. FINDINGS: Normal radiotracer distribution is noted in the lungs on the perfusion images. Some contamination is noted on the ventilation images with popping in the airway which may be seen with COPD. IMPRESSION: Very low probability for pulmonary embolus.
[2019-12-15 12:00] LABS: Glucose,Whole Blood 157 mg/dL (75-99)
[2019-12-15] MEDS: APIXABAN 5 MG TAB PO SCH ×2 (12:44→20:06)
[2019-12-15] MEDS: SILDENAFIL 20 MG TAB PO SCH ×3 (12:44→20:06)
[2019-12-15 12:52] VITALS: BMI 45.0
--- NOTE | 2019-12-15 13:45 | P.PN ---
Subjective Progress Note Date: 12/15/19 This is a very pleasant 74-year-old gentleman who sees Dr. Dominguez in the office as an outpatient with a past medical history significant for chronic diastolic congestive heart failure, long-standing persistent atrial fibrillation on oral anticoagulation, morbid obesity, sleep apnea, as well as multiple comorbid conditions, presented to the hospital again with increasing shortness of breath. The patient just was discharged from the hospital recently after he was admitted with acute exacerbation of congestive heart failure secondary to diastole dysfunction. Presented to the hospital on this occasion with symptoms again of increased progressively worsening shortness of breath. Was seen in consultation yesterday by Dr. Chatman, continues at this time to be on IV Lasix. His weight today is down 1 kg, BUN 34, creatinine 1.4. Objective - Vital Signs Vital signs: Vital Signs Temp 97.6 F 12/15/19 03:58 Pulse 80 12/15/19 12:13 Resp 18 12/15/19 03:58 BP 124/74 12/15/19 03:58 Pulse Ox 94 L 12/15/19 03:58 Intake & Output 12/14/19 12/15/19 12/15/19 18:59 06:59 18:59 Output Total 1000 Balance -1000 Weight 147.418 kg 146.5 kg 146.5 kg Output: Urine 1000 Other: Voiding Method Urinal - Exam PHYSICAL EXAMINATION: GENERAL: 74-year-old gentleman in no acute distress at the time of my examination HEENT: Head is atraumatic, normocephalic. Pupils equal, round. Sclera anicteric. Conjunctiva are clear. Mucous membranes of the mouth are moist. Neck is supple. There is elevated jugular venous pressure. No carotid bruit is heard. HEART EXAMINATION: Heart S1 and S2 irregularly irregular a systolic murmur is heard CHEST EXAMINATION: Lungs reveal diminished air entry to the bases bilaterally, crackles heard to the bases bilaterally. ABDOMEN: Soft, nontender. Bowel sounds are heard. No organomegaly noted. EXTREMITIES:[ 2+ peripheral pulses with 2+ evidence of peripheral edema NEUROLOGIC patient is awake, alert and oriented 3 . . - Labs CBC & Chem 7: 12/15/19 06:31 12/15/19 06:31 Labs: Abnormal Lab Results - Last 24 Hours (Table) 05/28/20 05/28/20 05/28/20 Range/Units 06:00 06:31 06:31 Lymphocytes # 0.3 L (1.0-4.8) k/uL Chloride 93 L (98-107) mmol/L Carbon Dioxide 34 H (22-30) mmol/L BUN 34 H (9-20) mg/dL Creatinine 1.43 H (0.66-1.25) mg/dL Glucose 175 H (74-99) mg/dL POC Glucose (mg/dL) 201 H (75-99) mg/dL 12/15/19 Range/Units 11:58 Lymphocytes # (1.0-4.8) k/uL Chloride (98-107) mmol/L Carbon Dioxide (22-30) mmol/L BUN (9-20) mg/dL Creatinine (0.66-1.25) mg/dL Glucose (74-99) mg/dL POC Glucose (mg/dL) 157 H (75-99) mg/dL Microbiology - Last 24 Hours (Table) 12/14/19 10:52 Blood Culture - Preliminary Blood No Growth after 24 hours Assessment and Plan Plan: Assessment and plan #1 diastolic congestive heart failure acute on chronic #2 COPD exacerbation and bibasilar pneumonia #3 persistent atrial fibrillation #4 acute on chronic kidney injury #5 elevated troponin, likely secondary to kidney injury #6 hyperlipidemia #7 severe sleep apnea #8 chronic vascular cellulitis Plan We will continue the current dose of IV Lasix, continue to monitor the intake and output along with daily weights and daily lytes BUN and creatinine. DNP note has been reviewed, I agree with a documented findings and plan of care. Patient was seen and examined.
--- NOTE | 2019-12-15 14:17 | P.PN ---
Subjective Progress Note Date: 12/15/19 74-year-old male one of my office patient with history of morbid obesity who seen Dr. Dominguez on cardiology regular basis who was in the hospital a few weeks ago for severe dyspnea and shortness of breath was treated for congestive heart failure and COPD along with A. fib with RVR and has done well has been doing well last few weeks till the last 5 days when he become more dyspneic and hypoxic having more palpitation more water retention has gain over 20 pound in the last 2 weeks his symptoms become a lot worse today ended up coming to the office was seen and evaluated found to be quite dyspneic had quite bed watch retention his pulse ox was running in the low 80 despite 3 L of O2 he was only around 92 percentile patient was sent to the emergency department at [facility] his BNP was over 8000 patient chest x-ray showed sign and symptom of congestive heart failure with fluid retention his troponin was slightly elevated his GFR was 39 EKG showed A. fib with pulse rate running in the 90s without any major ST or T wave abnormality. Patient was started on IV diuretics fluid restriction O2 updraft treatment and will be admitted to the hospital. 12/14: Patient is seen today in follow-up. He has been seen by Dr. Strange last evening and recommended continuing IV Lasix. Patient has decreased edema today. He states that his breathing is improving from yesterday. He has been diuresing well and weight is down 1 kg. Repeat lab work reveals a CBC unremarkable, chloride 93, CO2 34, BUN 34 and creatinine 1.43. Blood sugar in the 170s. Consult will be added for Dr. Dwyer for COPD exacerbation as well as Doppler studies of the lower extremities, VQ scan to rule out DVT and PE. VQ Scan Was Low Probability for Pulmonary Embolism. Patient Has Been Afebrile, Heart Rate 81, Blood Pressure 111/71, Pulse Ox 93% on Room Air. Objective - Vital Signs Vital signs: Vital Signs Temp 97.6 F 12/15/19 03:58 Pulse 84 12/15/19 08:58 Resp 18 12/15/19 03:58 BP 124/74 12/15/19 03:58 Pulse Ox 94 L 12/15/19 03:58 Intake & Output 12/14/19 12/15/19 12/15/19 18:59 06:59 18:59 Output Total 1000 Balance -1000 Weight 147.418 kg 146.5 kg Output: Urine 1000 Other: Voiding Method Urinal - Exam Review of Systems CONSTITUTIONAL: obesity in no respiratory distress. EYES: No icterus sclerae, no conjunctivitis. EARS, NOSE, MOUTH, THROAT, and FACE: No sore throat, lymphadenopathy, carotid bruits or deformity. RESPIRATORY: no dyspnea no shortness of breath positive cough and wheezes. CARDIOVASCULAR: No angina symptom with positive PND orthopnea palpitation with fluid retention worsening cough and hypoxia GASTROINTESTINAL: No Abd pain, Nausea or vomiting, no Diarrhea or constipation, No GI Bleed, no distention or masses. GENITOURINARY: Negative for Hematuria or UTI, no kidney stones. INTEGUMENT/BREAST: Significant edema arthritis and discoloration of the lower extremity. HEMATOLOGIC/LYMPHATIC: Negative for bleed or purpura. MUSCULOSKELTAL: Negative for Myalgia or arthralgia. NEURLOGICAL: No LOC, Sz or syncope, blurred vision dizziness or abnormality.. BEHAVIORAL/PSYCH: Negative. ENDOCRINE: Negative. Physical examination General Appearance: Alert, cooperative, morbid obesity with mild respiratory distress. Neck HEENT: Supple, no lymphadenopathy, no thyroid enlargement, no carotid bruits. Lungs: Decreased breath some bilaterally with bilateral crackles in the bases. Chest Wall: Decrease expansion with deep inspiration no tenderness and no deformity was found on exam, no costochondral pain or discomfort. Heart: Irregular rate and rhythm, S1, S2 normal positive S3 positive 5 cm JVD with systolic murmur. Back: Symmetric, no curvature, ROM normal, no CVA tenderness. Abdomen: Soft, non-tender, bowel sounds active all four quadrants, no masses, no organomegaly. Extremities: 2+ edema slight discoloration from the knee down significant arthritis in both knees. Pulses: 2+ and symmetric. Skin: Skin color, texture, tugor normal, no rashes or lesions. Neurologic: Alert oriented x3 cranial nerves II through XII intact, no motor deficit, no abnormal balance or gait. - Labs CBC & Chem 7: 12/15/19 06:31 12/15/19 06:31 Labs: Abnormal Lab Results - Last 24 Hours (Table) 12/14/19 12/14/19 12/14/19 Range/Units 10:52 10:52 10:52 RDW 15.7 H (11.5-15.5) % Lymphocytes # 0.9 L (1.0-4.8) k/uL Potassium 3.1 L (3.5-5.1) mmol/L Chloride 94 L (98-107) mmol/L Carbon Dioxide 32 H (22-30) mmol/L BUN 36 H (9-20) mg/dL Creatinine 1.71 H (0.66-1.25) mg/dL Glucose 119 H (74-99) mg/dL POC Glucose (mg/dL) (75-99) mg/dL Troponin I 0.041 H* (0.000-0.034) ng/mL 12/15/19 12/15/19 12/15/19 Range/Units 06:00 06:31 06:31 RDW (11.5-15.5) % Lymphocytes # 0.3 L (1.0-4.8) k/uL Potassium (3.5-5.1) mmol/L Chloride 93 L (98-107) mmol/L Carbon Dioxide 34 H (22-30) mmol/L BUN 34 H (9-20) mg/dL Creatinine 1.43 H (0.66-1.25) mg/dL Glucose 175 H (74-99) mg/dL POC Glucose (mg/dL) 201 H (75-99) mg/dL Troponin I (0.000-0.034) ng/mL Assessment and Plan Plan: 1 acute hypoxic respiratory failure: Combination of diastolic congestive heart failure acute with COPD exacerbation and acute by basilar pneumonia. Consults with cardiology and pulmonary medicine. 2 CHF exacerbation mostly acute diastolic with recurrent episode, patient will be on 60 mg of IV Lasix every 8 hours watch for any water retention and urine output for now and daily weight. Consult cardiology review his echocardiogram from last time also look for any secondary involvement such as acute pulmonary edema secondary to unstable angina and recurrent chest pain which can be part of the symptoms patient is doing with specially with the recurrent episode sure. This time. 3 COPD with mild exacerbation: Patient be hospitalized will consult Dr. Dwyer of patient will be on Solu-Medrol 40 mg IV every 8 hours along with DuoNeb and Pulmicort. 4 persistent atrial fibrillation: Patient pulse rates under control still on anticoagulation. Increase eliquis to 5 mg twice daily. 5 acute kidney injury: With worsening BUN/creatinine GFR down to 39 continue to watch kidney function and watch for any obstructive uropathy. 6 elevated troponin with possible non-ST MN. Cardiology consult. 7 Bibasilar pneumonia specially with chronic COPD patient will start Rocephin and azithromycin for now. 8 hypertension: Remain on metoprolol titrate 2050 mg twice a day along with Cardizem 60 mg twice a day. 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 10 hyperlipidemia: Continue patient on pravastatin 40 mg daily. 12 severe obstructive sleep apnea: Patient was started on BiPAP at home apparently is not using it many hours of the day see very is any further adjustment require to be done or if patient can benefit from official sleep st udy for O2 adjusted CPAP. Compliance to use oxygen and BiPAP still a problem. 13 gout: Patient will be on Zyloprim and colchicine. 14 chronic vascular cellulitis with significant swelling of the lower extremity after the edema is down is still having any significant cellulitic event will use Silvadene cream and continue doxycycline for 2 weeks. 15 GI prophylaxis: Patient be on Pepcid 20 mg daily. 16 DVT prophylaxis: Patient is on anticoagulation with Eliquis. CODE STATUS: Full code. Discharge plan: To be determined Impression and plan of care have been directed as dictated by the signing physician. Linda Maloney nurse practitioner acting as scribe for signing physician.
[2019-12-15] MEDS ORDERED: VANCOMYCIN 1,000 MG in SODIUM CHLORIDE 0.9% 250 ML IVPB STA (15:50)
[2019-12-15 16:54] LABS: Glucose,Whole Blood 215 mg/dL (75-99)
[2019-12-15] MEDS: POTASSIUM CHLORIDE ER 10 MEQ TAB.ER.PRT PO SCH (17:18)
[2019-12-15] MEDS: VANCOMYCIN 2,000 MG in SODIUM CHLORIDE 0.9% 500 ML 500 ML IVPB SCH (17:18)
--- NOTE | 2019-12-15 17:33 | US ---
EXAMINATION TYPE: US venous doppler duplex LE DATE OF EXAM: 12/15/2019 4:32 PM COMPARISON: NONE CLINICAL HISTORY: DVT. Bilateral leg swelling SIDE PERFORMED: Bilateral TECHNIQUE: The lower extremity deep venous system is examined utilizing real time linear array sonog vera with graded compression, doppler sonography and color-flow sonography. VESSELS IMAGED: External Iliac Vein (EIV) Common Femoral Vein Deep Femoral Vein Greater Saphenous Vein * Femoral Vein Popliteal Vein Small Saphenous Vein * Proximal Calf Veins (* superficial vessels) Right Leg: Appears negative for DVT Left Leg: Appears negative for DVT IMPRESSION: No sign of deep vein thrombosis in both legs.
[2019-12-15] MEDS: INSULIN ASPART (NovoLOG) 100 UNIT/ML VIAL SQ SCH ×2 (17:38→21:38)
[2019-12-15] MEDS: ALLOPURINOL 100 MG TAB PO SCH (20:06)
[2019-12-15] MEDS: PRAVASTATIN SODIUM 20 MG TAB PO SCH (20:06)
[2019-12-15 20:26] LABS: Glucose,Whole Blood 142 mg/dL (75-99)
[2019-12-16] MEDS: FUROSEMIDE 10 MG/ML 10 ML VIAL IV SCH ×3 (04:06→20:43)
[2019-12-16 06:15] LABS: Glucose,Whole Blood 172 mg/dL (75-99)
[2019-12-16] MEDS: METOPROLOL TARTRATE 50 MG TAB PO SCH ×2 (06:27→17:34)
[2019-12-16] MEDS: DILTIAZEM ORAL 30 MG TAB PO SCH ×2 (06:27→20:44)
[2019-12-16] MEDS: INSULIN ASPART (NovoLOG) 100 UNIT/ML VIAL SQ SCH ×4 (06:27→20:44)
[2019-12-16] MEDS: COLCHICINE 0.6 MG EACH PO SCH (06:28)
[2019-12-16] MEDS: IPRATROPIUM-ALBUTEROL 3 ML NEB INHALATION SCH ×4 (08:00→20:08)
[2019-12-16] MEDS: BUDESONIDE 0.5 MG/2 ML NEBU INHALATION SCH (08:00)
[2019-12-16 08:18] LABS: Calcium 9.3 mg/dL (8.4-10.2)
[2019-12-16 08:20] LABS: Potassium 3.7 mmol/L (3.5-5.1)
[2019-12-16] MEDS: VANCOMYCIN 2,000 MG in SODIUM CHLORIDE 0.9% 500 ML 500 ML IVPB SCH ×2 (09:20→23:26)
[2019-12-16] MEDS: methylPREDNISolone SOD SUCCI 40 MG/ML 1 ML VIAL IV SCH ×3 (09:21→23:26)
[2019-12-16] MEDS: APIXABAN 5 MG TAB PO SCH ×2 (09:21→20:44)
[2019-12-16] MEDS: FAMOTIDINE 20 MG TAB PO SCH (09:21)
[2019-12-16] MEDS: SILDENAFIL 20 MG TAB PO SCH ×3 (09:21→20:43)
[2019-12-16 11:16] LABS: Glucose,Whole Blood 155 mg/dL (75-99)
--- NOTE | 2019-12-16 14:47 | P.PN ---
Subjective Progress Note Date: 12/16/19 74-year-old male one of my office patient with history of morbid obesity who seen Dr. Dominguez on cardiology regular basis who was in the hospital a few weeks ago for severe dyspnea and shortness of breath was treated for congestive heart failure and COPD along with A. fib with RVR and has done well has been doing well last few weeks till the last 5 days when he become more dyspneic and hypoxic having more palpitation more water retention has gain over 20 pound in the last 2 weeks his symptoms become a lot worse today ended up coming to the office was seen and evaluated found to be quite dyspneic had quite bed watch retention his pulse ox was running in the low 80 despite 3 L of O2 he was only around 92 percentile patient was sent to the emergency department at [facility] his BNP was over 8000 patient chest x-ray showed sign and symptom of congestive heart failure with fluid retention his troponin was slightly elevated his GFR was 39 EKG showed A. fib with pulse rate running in the 90s without any major ST or T wave abnormality. Patient was started on IV diuretics fluid restriction O2 updraft treatment and will be admitted to the hospital. 12/14: Patient is seen today in follow-up. He has been seen by Dr. Strange last evening and recommended continuing IV Lasix. Patient has decreased edema today. He states that his breathing is improving from yesterday. He has been diuresing well and weight is down 1 kg. Repeat lab work reveals a CBC unremarkable, chloride 93, CO2 34, BUN 34 and creatinine 1.43. Blood sugar in the 170s. Consult will be added for Dr. Dwyer for COPD exacerbation as well as Doppler studies of the lower extremities, VQ scan to rule out DVT and PE. VQ Scan Was Low Probability for Pulmonary Embolism. Patient Has Been Afebrile, Heart Rate 81, Blood Pressure 111/71, Pulse Ox 93% on Room Air. 12/15: Patient states that he again today is feeling better from yesterday. He had a positive blood culture last evening and vancomycin was added as well as consult with Dr. Houser. This cultures come back as coag-negative staph. He is currently on IV Lasix 60 mg every 8 hours and Solu-Medrol 40 mg every [address] Dwyer regarding consultation and he will see the patient later today. Patient has been afebrile, heart rate 90, blood pressure 120/77, pulse ox 90% on 2 L nasal cannula. Repeat lab work reveals chloride 92, CO2 35, BUN 42 creatinine 1.36. Blood sugars are running between 155 and 172. Objective - Vital Signs Vital signs: Vital Signs Temp 97.5 F L 12/16/19 04:00 Pulse 89 12/16/19 08:15 Resp 17 12/16/19 04:00 BP 133/75 12/16/19 04:00 Pulse Ox 97 12/16/19 04:00 Intake & Output 12/15/19 12/16/19 12/16/19 18:59 06:59 18:59 Intake Total 540 Output Total 1800 500 Balance -1260 -500 Weight 146.5 kg 147.2 kg Intake: Oral 540 Output: Urine 1800 500 Other: Voiding Method Urinal # Voids 2 1 # Bowel Movements 1 - Exam Review of Systems CONSTITUTIONAL: obesity no respiratory distress. Denies fevers. Denies chills. EYES: No icterus sclerae, no conjunctivitis. EARS, NOSE, MOUTH, THROAT, and FACE: No sore throat, lymphadenopathy, carotid bruits or deformity. RESPIRATORY: no dyspnea no shortness of breath positive cough and wheezes. CARDIOVASCULAR: No angina symptom with positive PND orthopnea palpitation with fluid retention worsening cough and hypoxia GASTROINTESTINAL: No Abd pain, Nausea or vomiting, no Diarrhea or constipation, No GI Bleed, no distention or masses. GENITOURINARY: Negative for Hematuria or UTI, no kidney stones. INTEGUMENT/BREAST: Significant edema arthritis and discoloration of the lower extremity. HEMATOLOGIC/LYMPHATIC: Negative for bleed or purpura. MUSCULOSKELTAL: Negative for Myalgia or arthralgia. NEURLOGICAL: No LOC, Sz or syncope, blurred vision dizziness or abnormality.. BEHAVIORAL/PSYCH: Negative. ENDOCRINE: Negative. Physical examination General Appearance: Alert, cooperative, morbid obesity with no respiratory distress. Neck HEENT: Supple, no lymphadenopathy, no thyroid enlargement, no carotid bruits. Lungs: Decreased breath some bilaterally with bilateral crackles in the bases. Chest Wall: Decrease expansion with deep inspiration no tenderness and no deformity was found on exam, no costochondral pain or discomfort. Heart: Irregular rate and rhythm, S1, S2 normal positive S3 positive systolic murmur. Back: Symmetric, no curvature, ROM normal, no CVA tenderness. Abdomen: Soft, non-tender, bowel sounds active all four quadrants, no masses, no organomegaly. Extremities: 2+ edema slight discoloration from the knee down significant arthritis in both knees. Pulses: 2+ and symmetric. Skin: Skin color, texture, tugor normal, no rashes or lesions. Neurologic: Alert oriented x3 cranial nerves II through XII intact, no motor deficit, no abnormal balance or gait. - Labs CBC & Chem 7: 12/15/19 06:31 12/16/19 06:34 Labs: Abnormal Lab Results - Last 24 Hours (Table) 12/15/19 12/15/19 12/15/19 Range/Units 11:58 16:53 20:24 Chloride (98-107) mmol/L Carbon Dioxide (22-30) mmol/L BUN (9-20) mg/dL Creatinine (0.66-1.25) mg/dL Glucose (74-99) mg/dL POC Glucose (mg/dL) 157 H 215 H 142 H (75-99) mg/dL 12/16/19 12/16/19 Range/Units 06:13 06:34 Chloride 92 L (98-107) mmol/L Carbon Dioxide 35 H (22-30) mmol/L BUN 42 H (9-20) mg/dL Creatinine 1.36 H (0.66-1.25) mg/dL Glucose 163 H (74-99) mg/dL POC Glucose (mg/dL) 172 H (75-99) mg/dL Microbiology - Last 24 Hours (Table) 12/14/19 10:52 Blood Culture Gram Stain - Preliminary Blood Blood Culture - Preliminary Coagulase Negative Staph 12/14/19 10:52 Blood Culture - Final Blood Assessment and Plan Plan: 1 acute hypoxic respiratory failure: Combination of diastolic congestive heart failure acute with COPD exacerbation and acute by basilar pneumonia. Consults with cardiology and pulmonary medicine. 2 CHF exacerbation mostly acute diastolic with recurrent episode, patient will be on 60 mg of IV Lasix every 8 hours watch for any water retention and urine output for now and daily weight. Consult cardiology review his echocardiogram from last time also look for any secondary involvement such as acute pulmonary edema secondary to unstable angina and recurrent chest pain which can be part of the symptoms patient is doing with specially with the recurrent episode sure. This time. 3 COPD with mild exacerbation: Patient be hospitalized will consult Dr. Dwyer of patient will be on Solu-Medrol 40 mg IV every 8 hours along with DuoNeb and Pulmicort. 4 persistent atrial fibrillation: Patient pulse rates under control still on anticoagulation. Continue with chronic kidney disease stage III eliquis to 5 mg twice daily. 5 acute kidney injury: With worsening BUN/creatinine GFR down to 39 continue to watch kidney function and watch for any obstructive uropathy. 6 elevated troponin with possible non-ST NM. Cardiology consult. 7 Bibasilar pneumonia specially with chronic COPD patient will start Rocephin and azithromycin for now. 8 hypertension: Remain on metoprolol titrate 2050 mg twice a day along with Cardizem 60 mg twice a day. 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 10 hyperlipidemia: Continue patient on pravastatin 40 mg daily. 12 severe obstructive sleep apnea: Patient was started on BiPAP at home apparently is not using it many hours of the day see very is any further adj ustment require to be done or if patient can benefit from official sleep study for O2 adjusted CPAP. Compliance to use oxygen and BiPAP still a problem. 13 chronic gout: Patient will be on Zyloprim and colchicine. 14 chronic vascular cellulitis with significant swelling of the lower extremity after the edema is down is still having any significant cellulitic event will use Silvadene cream and continue doxycycline for 2 weeks. 15 GI prophylaxis: Patient be on Pepcid 20 mg daily. 16 DVT prophylaxis: Patient is on anticoagulation with Eliquis. CODE STATUS: Full code. Discharge plan: Home on Thursday or Thursday Impression and plan of care have been directed as dictated by the signing ph ysician. Linda Maloney nurse practitioner acting as scribe for signing physician.
--- NOTE | 2019-12-16 15:33 | P.PN ---
Subjective Progress Note Date: 12/16/19 This is a very pleasant 74-year-old gentleman who sees Dr. Dominguez in the office as an outpatient with a past medical history significant for chronic diastolic congestive heart failure, long-standing persistent atrial fibrillation on oral anticoagulation, morbid obesity, sleep apnea, as well as multiple comorbid conditions, presented to the hospital again with increasing shortness of breath. The patient just was discharged from the hospital recently after he was admitted with acute exacerbation of congestive heart failure secondary to diastole dysfunction. Presented to the hospital on this occasion with symptoms again of increased progressively worsening shortness of breath. Was seen in consultation yesterday by Dr. Chatman, continues at this time to be on IV Lasix. His weight today is down 1 kg, BUN 34, creatinine 1.4. 12/16/2019 Patient seen and examined today, feeling overall better, positive blood culture noted, ID consult patient requested. He continues to be on IV Lasix. He is diu resing well although his weight appears to be up slightly. Blood pressure 128/70 with a heart rate in the 90s, 96% on 2 L of oxygen. Sodium 137, potassium 3.7, BUN 42, creatinine 1.3. Objective - Vital Signs Vital signs: Vital Signs Temp 97.6 F 12/16/19 12:00 Pulse 96 12/16/19 12:00 Resp 20 12/16/19 12:00 BP 128/77 12/16/19 12:00 Pulse Ox 96 12/16/19 12:00 Intake & Output 12/15/19 12/16/19 12/16/19 18:59 06:59 18:59 Intake Total 540 243 Output Total 1800 500 Balance -1260 -500 243 Weight 146.5 kg 147.2 kg Intake: Oral 540 243 Output: Urine 1800 500 Other: Voiding Method Urinal Urinal # Voids 2 1 # Bowel Movements 1 - Exam PHYSICAL EXAMINATION: GENERAL: 74-year-old gentleman in no acute distress at the time of my examination HEENT: Head is atraumatic, normocephalic. Pupils equal, round. Sclera anict ivan. Conjunctiva are clear. Mucous membranes of the mouth are moist. Neck is supple. There is elevated jugular venous pressure. No carotid bruit is heard. HEART EXAMINATION: Heart S1 and S2 irregularly irregular a systolic murmur is heard CHEST EXAMINATION: Lungs reveal diminished air entry to the bases bilaterally, crackles heard to the bases bilaterally. ABDOMEN: Soft, nontender. Bowel sounds are heard. No organomegaly noted. EXTREMITIES:[ 2+ peripheral pulses with 2+ evidence of peripheral edema NEUROLOGIC patient is awake, alert and oriented 3 . . - Labs CBC & Chem 7: 12/15/19 06:31 12/16/19 06:34 Labs: Abnormal Lab Results - Last 24 Hours (Table) 12/15/19 12/15/19 12/16/19 Range/Units 16:53 20:24 06:13 Chloride (98-107) mmol/L Carbon Dioxide (22-30) mmol/L BUN (9-20) mg/dL Creatinine (0.66-1.25) mg/dL Glucose (74-99) mg/dL POC Glucose (mg/dL) 215 H 142 H 172 H (75-99) mg/dL 12/16/19 12/16/19 Range/Units 06:34 11:15 Chloride 92 L (98-107) mmol/L Carbon Dioxide 35 H (22-30) mmol/L BUN 42 H (9-20) mg/dL Creatinine 1.36 H (0.66-1.25) mg/dL Glucose 163 H (74-99) mg/dL POC Glucose (mg/dL) 155 H (75-99) mg/dL Microbiology - Last 24 Hours (Table) 12/14/19 10:52 Blood Culture Gram Stain - Preliminary Blood Blood Culture - Preliminary Coagulase Negative Staph 12/14/19 10:52 Blood Culture - Final Blood Assessment and Plan Plan: Assessment and plan #1 diastolic congestive heart failure acute on chronic #2 COPD exacerbation and bibasilar pneumonia #3 persistent atrial fibrillation #4 acute on chronic kidney injury #5 elevated troponin, likely secondary to kidney injury #6 hyperlipidemia #7 severe sleep apnea #8 chronic vascular cellulitis Plan We will continue the current dose of IV Lasix, continue to monitor the intake and output along with daily weights and daily lytes BUN and creatinine. Plan fo r possible discharge home in 24-48 hours DNP note has been reviewed, I agree with a documented findings and plan of care. Patient was seen and examined.
[2019-12-16 16:33] LABS: Glucose,Whole Blood 163 mg/dL (75-99)
[2019-12-16] MEDS: POTASSIUM CHLORIDE ER 10 MEQ TAB.ER.PRT PO SCH (17:34)
--- NOTE | 2019-12-16 19:48 | CONS ---
CONSULTATION PULMONARY/CRITICAL CARE CONSULTATION: DATE OF SERVICE: 12/16/2019 This is a 74-year-old male who used to see Dr. Nicola Murray. He apparently presented to the doctor's office with shortness of breath and worsening hypoxemia over the past several weeks. He apparently was admitted to the hospital with a diagnosis of congestive heart failure. He does have a history of obesity, CHF, CAD and chronic kidney disease. He also apparently was recently in the hospital with an episode of pneumonia and bronchitis. For some reason, he did not care for Dr. Murray. Dr. Grissom saw me today in the formerly [facility]. I initially saw this patient on my list but removed him from my list because I saw that Dr. Murray had seen him in the past. Dr. Grissom would like to see him, and I agreed to do so. The patient denied any fever or chills. He did have some cough and phlegm production. The patient's clinical history could be consistent with a combination of both heart failure and pneumonia. In addition, he has had increased weight gain of about 30 pounds and he also had some lower extremity edema. He denied any chest pain. He also denied any nausea, vomiting, diarrhea or abdominal pain. He denied any genitourinary complaints. He is feeling much better. Like I said, he has been in the hospital since December 13. I told him that it would be up to Dr. Grissom to decide when he might go home. I did tell the patient that I would like to see him in the office for additional evaluation. HOME MEDICATIONS: His home medications are reviewed. He is on Zyloprim, Klor-Con, Pravachol, colchicine, Cardizem, albuterol inhaler, Eliquis, Keflex, Lasix, metoprolol, Revatio and prednisone. ALLERGIES: DENIED. MEDICAL HISTORY: His medical history is positive for atrial fibrillation, CHF, GERD, hyperlipidemia, hypertension, DJD, pneumonia recently, prostate disease, possible sleep apnea syndrome and peripheral vascular occlusive disease. The patient also suffers from chronic lower extremity edema with chronic venostasis as well as chronic low back pain, gout and a prior history in 2018 of a right buttock infection secondary to MRSA. SURGICAL HISTORY: Surgical history includes cholecystectomy, heart catheterization, bilateral total knee arthroplasty, ventral hernia repair, colonoscopy, incision and drainage of a right buttock lesion. SOCIAL HISTORY: Positive for previous tobacco use. Denies any alcohol use or illicit drug use. FAMILY HISTORY: Positive for CVA in his father, and his mother had a history of dementia. He has a sister with no major medical problems. REVIEW OF SYSTEMS: CONSTITUTIONAL: Negative. NEUROLOGIC: Negative. HEENT: Negative. CARDIOVASCULAR: Negative. PULMONARY: Shortness of breath, cough, brown phlegm production, without fever or chills. GI: Negative. : Negative. RHEUMATOLOGIC: Negative. IMMUNOLOGIC: Negative. ENDOCRINOLOGIC: Negative. DERMATOLOGIC: Negative. PHYSICAL EXAMINATION: VITAL SIGNS: Current vital signs are reviewed. His temperature is 97.6, heart rate 96, respiratory rate 20, blood pressure 128/77, mean 94, and 2-liter saturation 96%. GENERAL APPEARANCE: He appears in no acute distress. HEENT: Examination is grossly unremarkable. He is wearing nasal oxygen at 2 L. He appears comfortable. No conversational dyspnea or use of accessory muscles. NECK: Supple. Full range of motion. No adenopathy. Neck veins are flat. CARDIOVASCULAR: Cardiovascular examination reveals irregular rhythm and rate. Heart rate about 96 beats per minute. Heart sounds are distant. S1, S2 normal. No distinct murmur noted. LUNGS: Lungs reveal crackles at the bases. A few scattered rhonchi are noted. No wheezes. Breath sounds equal bilaterally. ABDOMEN: Obese. Bowel sounds are heard. EXTREMITIES: Extremities reveal some mild edema. Some chronic venostasis changes. No cyanosis or clubbing. SKIN: Skin is without rash other than the chronic venostasis changes. NEUROLOGIC: Neurologic examination is brief but nonfocal. LABS: Reviewed. Sodium 137, potassium 3.7, chloride 92, CO2 35. Anion gap is 10. BUN and creatinine were 42 and 1.6. His N-terminal proBNP was 8240. His troponin was 0.026. PT, INR, PTT all normal. Microbiology is showing coag-negative staph in the blood stream. It is yet to be identified. Doppler studies of the lower extremities are negative for DVT. He also had a pulmonary ventilation/perfusion lung scan which was very low probability for PE. A chest x-ray done on December 13 shows evidence of diffuse interstitial changes, cardiomegaly, small effusions and cephalization. To me, the chest x-ray is most consistent with fluid overload/CHF. CURRENT MEDICATIONS: Current medications are reviewed. Currently the patient is on albuterol inhaler, allopurinol, Eliquis, Zithromax, Pulmicort, colchicine, diltiazem, famotidine, Lasix, albuterol/Atrovent updrafts, Solu-Medrol, metoprolol, Narcan, potassium chloride, pravastatin, Revatio and vancomycin. ASSESSMENT: 1. Shortness of breath, in my opinion most likely related to underlying congestive heart failure. The patient may also have a pneumonia and/or a purulent tracheobronchitis. I do think the primary problem relates to cardiac failure. 2. Obesity. 3. Sleep apnea syndrome. 4. Probable underlying chronic obstructive pulmonary disease, yet to be fully identified. The patient will need outpatient PFTs. 5. History of chronic atrial fibrillation. 6. History of gastroesophageal reflux disease. 7. Hyperlipidemia. 8. Hypertension. 9. Degenerative joint disease. 10.Recent admission for bronchopneumonia. 11.Sleep apnea syndrome, noncompliant with CPAP. 12.Peripheral vascular occlusive disease. 13.History of gout. 14.Prior history of methicillin-resistant Staphylococcus aeruginosa infection. 15.Chronic back pain. 16.History of arthritis. PLAN: The patient's medications are reviewed. Everything seems to be appropriate. If not already done, I would get a procalcitonin level and make a decision about the escalating antibiotics. The patient is on more than adequate antibiotics with both vancomycin and Zithromax. The patient is on updrafts. I told the patient that I would like to see him in the office after discharge. That way we can do a further and complete evaluation on the patient. He will need a 6-minute walk distance and a complete pulmonary function test. Additional recommendations and suggestions are forthcoming. MMODL / IJN: [id number] /
[2019-12-16] MEDS: SYMBICORT 160-4.5 MCG INHALER INHALATION SCH (20:08)
[2019-12-16 20:09] LABS: Glucose,Whole Blood 183 mg/dL (75-99)
[2019-12-16] MEDS: PRAVASTATIN SODIUM 20 MG TAB PO SCH (20:43)
[2019-12-16] MEDS: AZITHROMYCIN 500 MG in SODIUM CHLORIDE 0.9% 250 ML IVPB SCH (20:44)
[2019-12-16] MEDS: ALLOPURINOL 100 MG TAB PO SCH (20:44)
--- NOTE | 2019-12-17 00:20 | P.CONS ---
History of Present Illness - Reason for Consult Consult date: 12/16/19 Bacteremia Requesting physician: Gianluca Grissom - Chief Complaint Shortness of breath and leg swelling x 1 week - History of Present Illness Patient is a 74-year-old male presented to the hospital on December 14, 2019 with chief complaints of increasing shortness of breath inability to move the last few weeks in this patient who was recently admitted at this facility basurto s been treated for CHF exacerbation and has been on high-dose Lasix at home patient complains of increasing shortness of breath and lower extremity edema denies having any chest pain. Having minimal cough with no significant sputum production no nausea vomiting abdominal pain no diarrhea no choking on food on presented to the hospital patient has been afebrile and no fever has been recorded as 48 hours patient did have a normal white count NT proBNP is elevated 8240 patient had did have a chest x-ray shows increased patchy density right lower lobe infiltrate developing pneumonia VQ scan was low probability for pulmonary embolism patient did have blood cultures drawn which came back positive with gram-positive cocci the patient was started on vancomycin culture subsequently has been finalized as coagulase-negative staph, infectious disease was consulted for further management of antibiotic therapy. Review of Systems Positive point has been mentioned in HPI rest of the systems are negative Past Medical History Past Medical History: Atrial Fibrillation, Heart Failure, GERD/Reflux, Hyperlipidemia, Hypertension, Osteoarthritis (OA), Pneumonia, Prostate Disorder, Renal Disease, Sleep Apnea/CPAP/BIPAP, Vascular Disorder Additional Past Medical History / Comment(s): Acute respiratory failure 2ndary to interstitial pneumonia/sepsis/CHF, chronic lower extremity edema/discoloration, venous insufficiency, CHLOE uses CPap on occasion, chronic low back pain, generalized arthritis, gout bilateral feet, 2018 MRSA infection R buttock with sepsis. History of Any Multi-Drug Resistant Organisms: MRSA Year Discovered:: 04/08/18 MDRO Source:: buttock wound Past Surgical History: Cholecystectomy, Heart Catheterization, Joint Replacement Additional Past Surgical History / Comment(s): 02/19/17 diagnostic cardiac cath, bilateral total knee arthroplasty, ventral hernia repair, colonoscopies, I&D R buttock. Past Anesthesia/Blood Transfusion Reactions: No Reported Reaction Past Psychological History: No Psychological Hx Reported Smoking Status: Former smoker Past Alcohol Use History: None Reported Past Drug Use History: None Reported - Past Family History Father Family Medical History: CVA/TIA Additional Family Medical History / Comment(s): Dad at age 89 from stroke. Mother Family Medical History: Dementia Additional Family Medical History / Comment(s): Mother is alive at age 90 with dementia. Sister(s) Additional Family Medical History / Comment(s): Patient has 2 sisters with no major medical problems. Patient does not have any brothers. Patient has 2 adult children with no major medical problems. Medications and Allergies Home Medications Medication Instructions Recorded Confirmed Type Allopurinol [Zyloprim] 100 mg PO HS@2200 12/10/15 12/14/19 History Potassium Chloride [Klor-Con 10] 10 meq PO W/SUPPER 12/10/15 12/14/19 History Pravastatin Sodium [Pravachol] 20 mg PO BID 12/10/15 12/14/19 History Colchicine [Colcrys] 0.6 mg PO DAILY@0700 09/27/16 12/14/19 History Diltiazem Oral [Cardizem*] 60 mg PO BID@0700,2200 10/17/19 12/14/19 History Albuterol Sulfate [Albuterol 2 puff PO RT-Q6H PRN 11/18/19 12/14/19 History Sulfate Hfa] Apixaban [Eliquis] 2.5 mg PO BID #60 tablet 11/24/19 12/14/19 Rx Metoprolol Tartrate [Lopressor] 150 mg PO BID-W/MEALS #180 tab 11/24/19 12/14/19 Rx Furosemide [Lasix] 20 mg PO DAILY 12/14/19 12/14/19 History Furosemide [Lasix] 40 mg PO BID 12/14/19 12/14/19 History Mucinex (Unknown Strength) 1 tab PO QAM PRN 12/14/19 12/14/19 History Sildenafil Citrate [Sildenafil] 20 mg PO BID 12/14/19 12/14/19 History Allergies Allergy/AdvReac Type Severity Reaction Status Date / Time No Known Allergies Allergy Verified 12/14/19 21:30 Physical Exam Vitals: Vital Signs Temp Pulse Pulse Resp BP Pulse Ox 12/16/19 08:15 89 12/16/19 08:00 97.9 F 88 90 20 120/77 98 12/16/19 04:00 97.5 F L 98 17 133/75 97 12/15/19 23:58 87 17 122/62 96 12/15/19 20:00 97.7 F 96 17 136/82 98 12/15/19 19:39 99 18 12/15/19 19:24 98 18 12/15/19 16:00 97.7 F 98 19 122/75 92 L 12/15/19 15:41 103 H 18 12/15/19 15:30 102 H 18 92 L 12/15/19 12:13 80 12/15/19 12:03 88 12/15/19 12:00 97.8 F 89 19 115/78 98 Intake and Output 12/15/19 12/16/19 12/16/19 22:59 06:59 14:59 Intake Total 540 118 Output Total 1100 200 Balance -560 -200 118 Intake: Oral 540 118 Output: Urine 1100 200 Other: Voiding Method Urinal # Voids 1 # Bowel Movements 1 Weight 147.2 kg GENERAL DESCRIPTION: Elderly male up in the chair, no distress. No tachypnea or accessory muscle of respiration use. HEENT: Shows Pallor , no scleral icterus. Oral mucous membrane is dry. NECK: Trachea central, no thyromegaly. LUNGS: Unlabored breathing. Decreased breath sound at the base. No wheeze or crackle. HEART: S1, S2, regular rate and rhythm. ABDOMEN: Soft, no tenderness , guarding or rigidity EXTREMITIES: Diffuse swelling lower extremity no redness. SKIN: No rash, no masses palpable. NEUROLOGICAL: The patient is awake, alert, oriented x3, mood and affect normal. Results CBC & Chem 7: 12/15/19 06:31 12/16/19 06:34 Labs: Abnormal Lab Results - Last 24 Hours (Table) 12/15/19 12/15/19 12/15/19 Range/Units 11:58 16:53 20:24 Chloride (98-107) mmol/L Carbon Dioxide (22-30) mmol/L BUN (9-20) mg/dL Creatinine (0.66-1.25) mg/dL Glucose (74-99) mg/dL POC Glucose (mg/dL) 157 H 215 H 142 H (75-99) mg/dL 12/16/19 12/16/19 Range/Units 06:13 06:34 Chloride 92 L (98-107) mmol/L Carbon Dioxide 35 H (22-30) mmol/L BUN 42 H (9-20) mg/dL Creatinine 1.36 H (0.66-1.25) mg/dL Glucose 163 H (74-99) mg/dL POC Glucose (mg/dL) 172 H (75-99) mg/dL Microbiology - Last 24 Hours (Table) 12/14/19 10:52 Blood Culture Gram Stain - Preliminary Blood Blood Culture - Preliminary Coagulase Negative Staph 12/14/19 10:52 Blood Culture - Final Blood Assessment and Plan Assessment: 1-patient with gram-positive bacteremia which has been finalized as coagulase- negative staph likely a skin contaminant as the patient clinically seems to go along with it patient is afebrile with a normal white count 2-patient presented to hospital with increasing shortness of breath along with lower extremity swelling in this patient with significant elevated NT proBNP of 8000 with a normal white count and no fever likely a CHF exacerbation and fluid overload clinically doubt pneumonia (1) Coagulase negative Staphylococcus bacteremia Current Visit: Yes Status: Acute Code(s): R78.81 - BACTEREMIA; B95.7 - OTH STAPHYLOCOCCUS THE CAUSE OF DISEASES [facility] SNOMED Code(s): 092701820259 Plan: 1-discontinue vancomycin 2-repeat cultures as well as clinical condition will be monitored to see if any need for further antibiotic therapy down the road We will follow on clinical condition and cultures to further adjust medication if needed Thank you for this consultation we will follow the patient along with you Time with Patient: Greater than 30
[2019-12-17] MEDS: FUROSEMIDE 10 MG/ML 10 ML VIAL IV SCH ×3 (05:24→21:00)
[2019-12-17 06:29] LABS: Glucose,Whole Blood 172 mg/dL (75-99)
[2019-12-17] MEDS: METOPROLOL TARTRATE 50 MG TAB PO SCH ×2 (06:31→17:46)
[2019-12-17] MEDS: COLCHICINE 0.6 MG EACH PO SCH (06:31)
[2019-12-17] MEDS: INSULIN ASPART (NovoLOG) 100 UNIT/ML VIAL SQ SCH ×4 (06:31→21:00)
[2019-12-17] MEDS: DILTIAZEM ORAL 30 MG TAB PO SCH ×2 (06:31→20:59)
[2019-12-17] MEDS: IPRATROPIUM-ALBUTEROL 3 ML NEB INHALATION SCH ×4 (07:55→19:55)
[2019-12-17] MEDS: SYMBICORT 160-4.5 MCG INHALER INHALATION SCH ×2 (07:55→19:55)
[2019-12-17 08:06] LABS: Calcium 9.4 mg/dL (8.4-10.2); Potassium 3.6 mmol/L (3.5-5.1)
[2019-12-17] MEDS: methylPREDNISolone SOD SUCCI 40 MG/ML 1 ML VIAL IV SCH ×3 (09:13→23:44)
[2019-12-17] MEDS: FAMOTIDINE 20 MG TAB PO SCH (09:13)
[2019-12-17] MEDS: APIXABAN 5 MG TAB PO SCH ×2 (09:13→20:59)
[2019-12-17] MEDS: SILDENAFIL 20 MG TAB PO SCH ×3 (09:13→20:59)
[2019-12-17 11:35] LABS: Glucose,Whole Blood 121 mg/dL (75-99)
--- NOTE | 2019-12-17 13:23 | P.PN ---
Subjective Progress Note Date: 12/17/19 This is a very pleasant 74-year-old gentleman who sees Dr. Dominguez in the office as an outpatient with a past medical history significant for chronic diastolic congestive heart failure, long-standing persistent atrial fibrillation on oral anticoagulation, morbid obesity, sleep apnea, as well as multiple comorbid conditions, presented to the hospital again with increasing shortness of breath. The patient just was discharged from the hospital recently after he was admitted with acute exacerbation of congestive heart failure secondary to diastole dysfunction. Presented to the hospital on this occasion with symptoms again of increased progressively worsening shortness of breath. Was seen in consultation yesterday by Dr. Chatman, continues at this time to be on IV Lasix. His weight today is down 1 kg, BUN 34, creatinine 1.4. 12/16/2019 Patient seen and examined today, feeling overall better, positive blood culture noted, ID consult patient requested. He continues to be on IV Lasix. He is diu resing well although his weight appears to be up slightly. Blood pressure 128/70 with a heart rate in the 90s, 96% on 2 L of oxygen. Sodium 137, potassium 3.7, BUN 42, creatinine 1.3. 12/17/2019 Patient was seen and examined this morning, continued to diurese well through the night last night, continues to be on IV Lasix, creatinine 1.3. Objective - Vital Signs Vital signs: Vital Signs Temp 97.8 F 12/17/19 08:00 Pulse 80 12/17/19 12:01 Resp 18 12/17/19 08:00 BP 104/74 12/17/19 08:00 Pulse Ox 95 12/17/19 08:00 Intake & Output 12/16/19 12/17/19 12/17/19 18:59 06:59 18:59 Intake Total 601 240 Output Total 900 Balance 601 -900 240 Weight 150 kg Intake: Oral 601 240 Output: Urine 900 Other: Voiding Method Urinal Urinal Urinal - Exam PHYSICAL EXAMINATION: GENERAL: 74-year-old gentleman in no acute distress at the time of my examination HEENT: Head is atraumatic, normocephalic. Pupils equal, round. Sclera ani cteric. Conjunctiva are clear. Mucous membranes of the mouth are moist. Neck is supple. There is elevated jugular venous pressure. No carotid bruit is heard. HEART EXAMINATION: Heart S1 and S2 irregularly irregular a systolic murmur is heard CHEST EXAMINATION: Lungs reveal diminished air entry to the bases bilaterally, crackles heard to the bases bilaterally. ABDOMEN: Soft, nontender. Bowel sounds are heard. No organomegaly noted. EXTREMITIES:[ 2+ peripheral pulses with 2+ evidence of peripheral edema NEUROLOGIC patient is awake, alert and oriented 3 . . - Labs CBC & Chem 7: 12/15/19 06:31 12/17/19 07:08 Labs: Abnormal Lab Results - Last 24 Hours (Table) 12/16/19 12/16/19 12/17/19 Range/Units 16:31 20:08 06:25 Chloride (98-107) mmol/L Carbon Dioxide (22-30) mmol/L BUN (9-20) mg/dL Creatinine (0.66-1.25) mg/dL Glucose (74-99) mg/dL POC Glucose (mg/dL) 163 H 183 H 172 H (75-99) mg/dL 12/17/19 12/17/19 Range/Units 07:08 11:30 Chloride 95 L (98-107) mmol/L Carbon Dioxide 36 H (22-30) mmol/L BUN 53 H (9-20) mg/dL Creatinine 1.34 H (0.66-1.25) mg/dL Glucose 140 H (74-99) mg/dL POC Glucose (mg/dL) 121 H (75-99) mg/dL Microbiology - Last 24 Hours (Table) 12/14/19 10:52 Blood Culture Gram Stain - Final Blood Blood Culture - Final Staphylococcus epidermidis 12/15/19 16:55 Blood Culture - Preliminary Blood No Growth after 24 hours Assessment and Plan Plan: Assessment and plan #1 diastolic congestive heart failure acute on chronic #2 COPD exacerbation and bibasilar pneumonia #3 persistent atrial fibrillation #4 acute on chronic kidney injury #5 elevated troponin, likely secondary to kidney injury #6 hyperlipidemia #7 severe sleep apnea #8 chronic vascular cellulitis Plan We will continue the current dose of IV Lasix, continue to monitor the intake and output along with daily weights and daily lytes BUN and creatinine. Plan for possible discharge home in 24-48 hours DNP note has been reviewed, I agree with a documented findings and plan of care. Patient was seen and examined.
--- NOTE | 2019-12-17 16:25 | PN ---
PROGRESS NOTE PULMONARY/CRITICAL CARE PROGRESS NOTE: DATE OF SERVICE: 12/17/2019 This is a very pleasant 74-year-old gentleman who I was asked to see. He has a history of shortness of breath, related to underlying CHF. The patient also may have an episode of pneumonia and/or purulent tracheobronchitis. Anyway, he was seeing the other pulmonary doctor. In addition, he has obesity, sleep apnea syndrome, probable underlying COPD, as well as chronic atrial fibrillation among other medical problems. The patient will need a 6 minute walk distance and complete pulmonary function test to better understand his physiology. Currently, he is feeling much better. He denies any chest pain or pressure. He states his breathing is improved. PHYSICAL EXAMINATION: VITAL SIGNS: Current vital signs include temperature 97.8, heart rate 83, respiratory rate 20, blood pressure 111/64, mean 86 and room-air saturation 94%. Appears in no acute distress. HEENT: Examination is grossly unremarkable. Mucous membranes are moist. Nasal O2 is not noted. NECK: Supple. Full range of motion. No adenopathy. Neck veins are flat. No thyromegaly. CARDIOVASCULAR: Examination reveals regular rhythm and rate. Heart sounds are distant. Heart rate 80. S1, S2 normal. LUNGS: Reveal a few scattered crackles. No wheezes. No rhonchi. Breath sounds equal. ABDOMEN: Obese. Bowel sounds are heard. EXTREMITIES are intact. He does have some chronic venous stasis changes with hyperpigmentation. No significant cyanosis or clubbing. SKIN: Without rash other than what was mentioned in the lower extremities. NEUROLOGIC: Examination is nonfocal. LABS: Reviewed. Sodium 139, potassium 3.6, chloride 95, CO2 36 anion gap is 8. BUN and creatinine were 53 and 1.34. Microbiology showing evidence of Staph epidermidis in the blood. This is likely a contaminant. Venous Dopplers of the lower extremities were negative for DVT. Medications are reviewed. ASSESSMENT: 1. Shortness of breath, most likely related to underlying congestive heart failure. The patient may also have a component of pneumonia and/or purulent tracheobronchitis. 2. Obesity with possible sleep apnea syndrome. 3. Probable underlying chronic obstructive pulmonary disease, yet to be fully identified and characterize. The patient will need an outpatient PFT and 6 minute walk distance. 4. Rule out restrictive lung disease secondary to obesity. 5. History of chronic atrial fibrillation. 6. History of gastroesophageal reflux disease. 7. Hyperlipidemia. 8. Hypertension. 9. Degenerative joint disease. 10.Recent admission for bronchopneumonia. 11.Prior history of sleep apnea syndrome, noncompliant with CPAP. 12.Peripheral vascular occlusive disease. 13.Gout. 14.Prior history of methicillin-resistant Staphylococcus aureus infection. 15.Chronic back pain. 16.History of arthritis. PLAN: The patient seems to be doing much better. I believe his Staph epidermidis is probably a contaminant. His COVID-19 testing was negative. His N terminal proBNP was more than 8000 back on the . I will continue to follow. The patient will follow with me in the outpatient setting. Additional recommendations and suggestions are forthcoming. MMODL / IJN: [id number] /
[2019-12-17 16:26] LABS: Glucose,Whole Blood 158 mg/dL (75-99)
--- NOTE | 2019-12-17 17:00 | P.PN ---
Subjective Progress Note Date: 12/17/19 74-year-old male one of my office patient with history of morbid obesity who seen Dr. Dominguez on cardiology regular basis who was in the hospital a few weeks ago for severe dyspnea and shortness of breath was treated for congestive heart failure and COPD along with A. fib with RVR and has done well has been doing well last few weeks till the last 5 days when he become more dyspneic and hypoxic having more palpitation more water retention has gain over 20 pound in the last 2 weeks his symptoms become a lot worse today ended up coming to the office was seen and evaluated found to be quite dyspneic had quite bed watch retention his pulse ox was running in the low 80 despite 3 L of O2 he was only around 92 percentile patient was sent to the emergency department at [facility] his BNP was over 8000 patient chest x-ray showed sign and symptom of congestive heart failure with fluid retention his troponin was slightly elevated his GFR was 39 EKG showed A. fib with pulse rate running in the 90s without any major ST or T wave abnormality. Patient was started on IV diuretics fluid restriction O2 updraft treatment and will be admitted to the hospital. 12/14: Patient is seen today in follow-up. He has been seen by Dr. Strange last evening and recommended continuing IV Lasix. Patient has decreased edema today. He states that his breathing is improving from yesterday. He has been diuresing well and weight is down 1 kg. Repeat lab work reveals a CBC unremarkable, chloride 93, CO2 34, BUN 34 and creatinine 1.43. Blood sugar in the 170s. Consult will be added for Dr. Dwyer for COPD exacerbation as well as Doppler studies of the lower extremities, VQ scan to rule out DVT and PE. VQ Sc an Was Low Probability for Pulmonary Embolism. Patient Has Been Afebrile, Heart Rate 81, Blood Pressure 111/71, Pulse Ox 93% on Room Air. 12/15: Patient states that he again today is feeling better from yesterday. He had a positive blood culture last evening and vancomycin was added as well as consult with Dr. Houser. This cultures come back as coag-negative staph. He is currently on IV Lasix 60 mg every 8 hours and Solu-Medrol 40 mg every [address] Dwyer regarding consultation and he will see the patient later today. Patient has been afebrile, heart rate 90, blood pressure 120/77, pulse ox 90% on 2 L nasal cannula. Repeat lab work reveals chloride 92, CO2 35, BUN 42 creatinine 1.36. Blood sugars are running between 155 and 172. 12/16: Patient has minimal epistaxis today, and no more purulence, cough seems to be drier unloader, still some mucus, no shortness of breath, patient has no palpitations, nebulized treatments is working, patient remains on IV Solu-Medrol, patient has improvement of dyspnea and exertion, he was seen by ENT Aydee last admission for this as best epistaxis, and still has intermittent nose bleeding, a free and will be started, patient remains on anticoagulation and till the epistaxis is uncontrolled. White dissipating discharge in the next 24 hours, was cleared by pulmonary. We will change IV Lasix to oral 40 mg twice a day, currently is on oral Zithromax, off Levaquin. Review of Systems CONSTITUTIONAL: obesity no respiratory distress. Denies fevers. Denies chills. EYES: No icterus sclerae, no conjunctivitis. EARS, NOSE, MOUTH, THROAT, and FACE: No sore throat, lymphadenopathy, carotid bruits or deformity. RESPIRATORY: no dyspnea no shortness of breath positive cough and wheezes. CARDIOVASCULAR: No angina symptom with positive PND orthopnea palpitation with fluid retention worsening cough and hypoxia GASTROINTESTINAL: No Abd pain, Nausea or vomiting, no Diarrhea or constipation, No GI Bleed, no distention or masses. GENITOURINARY: Negative for Hematuria or UTI, no kidney stones. INTEGUMENT/BREAST: Significant edema arthritis and discoloration of the lower extremity. HEMATOLOGIC/LYMPHATIC: Negative for bleed or purpura. MUSCULOSKELTAL: Negative for Myalgia or arthralgia. NEURLOGICAL: No LOC, Sz or syncope, blurred vision dizziness or abnormality.. BEHAVIORAL/PSYCH: Negative. ENDOCRINE: Negative. Objective - Vital Signs Vital signs: Vital Signs Temp 97.8 F 12/17/19 08:00 Pulse 83 12/17/19 15:27 Resp 20 12/17/19 12:00 BP 111/74 12/17/19 12:00 Pulse Ox 92 L 12/17/19 12:00 Intake & Output 12/16/19 12/17/19 12/17/19 18:59 06:59 18:59 Intake Total 601 600 Output Total 900 Balance 601 -900 600 Weight 150 kg Intake: Oral 601 600 Output: Urine 900 Other: Voiding Method Urinal Urinal Urinal # Voids 2 - Constitutional General appearance: Present: cooperative, morbidly obese, no acute distress - EENT Eyes: Present: anicteric sclerae, EOMI, PERRLA, dentition normal, normal appearance ENT: Present: normal oropharynx - Neck Neck: Present: normal ROM - Respiratory Respiratory: bilateral: CTA, negative: diminished, dullness, rales - Cardiovascular Rhythm: regular Heart sounds: normal: S1, S2 Abnormal Heart Sounds: Absent: systolic murmur, diastolic murmur, rub, S3 Gal lop, S4 Gallop, click, other - Gastrointestinal General gastrointestinal: Present: normal bowel sounds, soft - Integumentary Integumentary: Present: decreased turgor, normal - Neurologic Neurologic: Present: CNII-XII intact - Musculoskeletal Musculoskeletal: Present: gait normal, strength equal bilaterally - Psychiatric Psychiatric: Present: A&O x's 3, appropriate affect, intact judgment & insight - Labs CBC & Chem 7: 12/15/19 06:31 12/17/19 07:08 Labs: Abnormal Lab Results - Last 24 Hours (Table) 12/16/19 12/17/19 12/17/19 Range/Units 20:08 06:25 07:08 Chloride 95 L (98-107) mmol/L Carbon Dioxide 36 H (22-30) mmol/L BUN 53 H (9-20) mg/dL Creatinine 1.34 H (0.66-1.25) mg/dL Glucose 140 H (74-99) mg/dL POC Glucose (mg/dL) 183 H 172 H (75-99) mg/dL 12/17/19 12/17/19 Range/Units 11:30 16:21 Chloride (98-107) mmol/L Carbon Dioxide (22-30) mmol/L BUN (9-20) mg/dL Creatinine (0.66-1.25) mg/dL Glucose (74-99) mg/dL POC Glucose (mg/dL) 121 H 158 H (75-99) mg/dL Microbiology - Last 24 Hours (Table) 12/14/19 10:52 Blood Culture Gram Stain - Final Blood Blood Culture - Final Staphylococcus epidermidis 12/15/19 16:55 Blood Culture - Preliminary Blood No Growth after 24 hours Assessment and Plan Plan: 1 acute hypoxic respiratory failure: Combination of diastolic congestive heart failure acute with COPD exacerbation and acute by basilar pneumonia. Consults with cardiology and pulmonary medicine. 2 CHF exacerbation mostly acute diastolic with recurrent episode, patient will be on 60 mg of IV Lasix every 8 hours watch for any water retention and urine output for now and daily weight. Consult cardiology review his echocardiogram from last time also look for any secondary involvement such as acute pulmonary edema secondary to unstable angina and recurrent chest pain which can be part of the symptoms patient is doing with specially with the recurrent episode sure. This time. 3 COPD with mild exacerbation: Patient be hospitalized will consult Dr. Dwyer of patient will be on Solu-Medrol 40 mg IV every 8 hours along with DuoNeb and Pulmicort. 4 persistent atrial fibrillation: Patient pulse rates under control still on anticoagulation. Continue with chronic kidney disease stage III eliquis to 5 mg twice daily. 5 acute kidney injury: With worsening BUN/creatinine GFR down to 39 continue to watch kidney function and watch for any obstructive uropathy. 6 elevated troponin with possible non-ST VT. Cardiology consult. 7 Bibasilar pneumonia specially with chronic COPD . oral azithromycin for now. Pulmonary following 8 hypertension: Remain on metoprolol titrate 2050 mg twice a day along with Cardizem 60 mg twice a day. 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 10 hyperlipidemia: Continue patient on pravastatin 40 mg daily. 12 severe obstructive sleep apnea: Patient was started on BiPAP at home apparently is not using it many hours of the day see very is any further adjustment require to be done or if patient can benefit from official sleep study for O2 adjusted CPAP. Compliance to use oxygen and BiPAP still a problem. 13 chronic gout: Patient will be on Zyloprim and colchicine. 14 chronic vascular cellulitis with significant swelling of the lower extremity after the edema is down is still having any significant cellulitic event will use Silvadene cream 15 GI prophylaxis: Patient be on Pepcid 20 mg daily. 16 DVT prophylaxis: Patient is on anticoagulation with Eliquis. 17. Epistaxis, intermittent, on eloquis we are going to start afrin, scheduled every 6 hours, patient was seen by by ENT during his last admission, CODE STATUS: Full code. Discharge plan: Home Thursday
[2019-12-17] MEDS: POTASSIUM CHLORIDE ER 10 MEQ TAB.ER.PRT PO SCH (17:45)
[2019-12-17] MEDS: OXYMETAZOLINE 0.05% NASL SPRAY 1 SPRAY BOTTLE EA NOSTRIL SCH ×2 (17:47→21:02)
--- NOTE | 2019-12-17 18:55 | PN ---
PROGRESS NOTE DATE OF SERVICE: 12/17/2019 REASON FOR FOLLOWUP: Positive blood culture. INTERVAL HISTORY: The patient is currently afebrile. Patient is breathing more comfortably. Denies having any chest pain. No shortness of breath. Occasional cough. No nausea, vomiting. No pain or diarrhea. Currently off oxygen, on room air. EXAMINATION: Blood pressure 134/74 with a pulse of 78, temperature is 97.8. He is 95% on room air. General description: The patient is an elderly male up in the chair in no distress. Respiratory system: Unlabored breathing, decreased breath sounds at bases. No wheeze. HEART: S1, S2. Regular rate and rhythm. ABDOMEN: Soft, no tenderness. LEGS: With some chronic dermatitis changes but no active cellulitis. LABS: BUN of 53, creatinine 1.34, white count 4.5. Blood culture repeat has been negative so far. DIAGNOSTIC IMPRESSION AND PLAN: Patient with positive blood culture, likely skin contamination. Clinically doubt significant bacteremia. Follow-up blood culture negative. Will monitor patient closely off antibiotic therapy. Continue supportive care. MMODL / IJN: [id number] /
[2019-12-17 20:31] LABS: Glucose,Whole Blood 171 mg/dL (75-99)
[2019-12-17] MEDS: PRAVASTATIN SODIUM 20 MG TAB PO SCH (20:59)
[2019-12-17] MEDS: AZITHROMYCIN 500 MG in SODIUM CHLORIDE 0.9% 250 ML IVPB SCH (21:00)
[2019-12-17] MEDS: ALLOPURINOL 100 MG TAB PO SCH (21:00)
[2019-12-18 00:07] VITALS: RESP 18
[2019-12-18] MEDS: FUROSEMIDE 10 MG/ML 10 ML VIAL IV SCH (03:18)
[2019-12-18 06:32] LABS: Glucose,Whole Blood 167 mg/dL (75-99)
[2019-12-18] MEDS: METOPROLOL TARTRATE 50 MG TAB PO SCH (06:32)
[2019-12-18] MEDS: INSULIN ASPART (NovoLOG) 100 UNIT/ML VIAL SQ SCH (06:32)
[2019-12-18] MEDS: COLCHICINE 0.6 MG EACH PO SCH (06:32)
[2019-12-18] MEDS: DILTIAZEM ORAL 30 MG TAB PO SCH (06:32)
[2019-12-18] MEDS: IPRATROPIUM-ALBUTEROL 3 ML NEB INHALATION SCH ×3 (08:15→15:51)
[2019-12-18] MEDS: SYMBICORT 160-4.5 MCG INHALER INHALATION SCH (08:16)
[2019-12-18] MEDS: SILDENAFIL 20 MG TAB PO SCH (08:54)
[2019-12-18] MEDS: FAMOTIDINE 20 MG TAB PO SCH (08:54)
[2019-12-18] MEDS: APIXABAN 5 MG TAB PO SCH (08:54)
[2019-12-18] MEDS: methylPREDNISolone SOD SUCCI 40 MG/ML 1 ML VIAL IV SCH (08:54)
[2019-12-18 09:56] VITALS: BP 116/76; TEMP 97.5
[2019-12-18 11:32] VITALS: PULSE 82
--- NOTE | 2019-12-18 11:48 | P.PN ---
Subjective Progress Note Date: 12/18/19 This is a very pleasant 74-year-old gentleman who sees Dr. Dominguez in the office as an outpatient with a past medical history significant for chronic diastolic congestive heart failure, long-standing persistent atrial fibrillation on oral anticoagulation, morbid obesity, sleep apnea, as well as multiple comorbid conditions, presented to the hospital again with increasing shortness of breath. The patient just was discharged from the hospital recently after he was admitted with acute exacerbation of congestive heart failure secondary to diastole dysfunction. Presented to the hospital on this occasion with symptoms again of increased progressively worsening shortness of breath. Was seen in consultation yesterday by Dr. Chatman, continues at this time to be on IV Lasix. His weight today is down 1 kg, BUN 34, creatinine 1.4. 12/16/2019 Patient seen and examined today, feeling overall better, positive blood culture noted, ID consult patient requested. He continues to be on IV Lasix. He is diu resing well although his weight appears to be up slightly. Blood pressure 128/70 with a heart rate in the 90s, 96% on 2 L of oxygen. Sodium 137, potassium 3.7, BUN 42, creatinine 1.3. 12/17/2019 Patient was seen and examined this morning, continued to diurese well through the night last night, continues to be on IV Lasix, creatinine 1.3. 12/18/2019 Patient was seen and examined this morning, diuresed well again through the night last night and his weight is down today. Creatinine today 1.5. We will discontinue the IV Lasix today, change patient over to oral diuretics. From our perspective he may be able to be discharged home today, follow-up appointment in the office with Dr. Dominguez post discharge. Objective - Vital Signs Vital signs: Vital Signs Temp 97.5 F L 12/18/19 08:00 Pulse 82 12/18/19 11:40 Resp 18 12/18/19 08:00 BP 116/76 12/18/19 08:00 Pulse Ox 93 L 12/18/19 08:00 Intake & Output 12/17/19 12/18/19 12/18/19 18:59 06:59 18:59 Intake Total 840 360 Balance 840 360 Weight 149.7 kg Intake: Oral 840 360 Other: Voiding Method Urinal Urinal Urinal # Voids 2 2 - Exam PHYSICAL EXAMINATION: GENERAL: 74-year-old gentleman in no acute distress at the time of my examination HEENT: Head is atraumatic, normocephalic. Pupils equal, round. Sclera anicteric. Conjunctiva are clear. Mucous membranes of the mouth are moist. Neck is supple. There is elevated jugular venous pressure. No carotid bruit is heard. HEART EXAMINATION: Heart S1 and S2 irregularly irregular a systolic murmur is heard CHEST EXAMINATION: Lungs reveal diminished air entry to the bases bilaterally, crackles heard to the bases bilaterally. ABDOMEN: Soft, nontender. Bowel sounds are heard. No organomegaly noted. EXTREMITIES:[ 2+ peripheral pulses with trace to 1+ evidence of peripheral edema NEUROLOGIC patient is awake, alert and oriented 3 . . - Labs CBC & Chem 7: 12/15/19 06:31 12/18/19 05:51 Labs: Abnormal Lab Results - Last 24 Hours (Table) 12/17/19 12/17/19 12/18/19 Range/Units 16:21 20:30 05:51 Creatinine 1.51 H (0.66-1.25) mg/dL POC Glucose (mg/dL) 158 H 171 H (75-99) mg/dL 12/18/19 Range/Units 06:30 Creatinine (0.66-1.25) mg/dL POC Glucose (mg/dL) 167 H (75-99) mg/dL Microbiology - Last 24 Hours (Table) 12/15/19 16:55 Blood Culture - Preliminary Blood No Growth after 48 hours 12/14/19 10:52 Blood Culture Gram Stain - Final Blood Blood Culture - Final Staphylococcus epidermidis Assessment and Plan Plan: Assessment and plan #1 diastolic congestive heart failure acute on chronic #2 COPD exacerbation and bibasilar pneumonia #3 persistent atrial fibrillation #4 acute on chronic kidney injury #5 elevated troponin, likely secondary to kidney injury #6 hyperlipidemia #7 severe sleep apnea #8 chronic vascular cellulitis Plan We'll discontinue the IV Lasix today and change patient over to oral diuretics. From cardiology's perspective, patient may be able to be discharged home today to follow-up with Dr. Dominguez in the office post discharge. DNP note has been reviewed, I agree with a documented findings and plan of care. Patient was seen and examined.
[2019-12-18 11:51] LABS: Glucose,Whole Blood 112 mg/dL (75-99)
--- NOTE | 2019-12-18 14:26 | P.DS ---
Providers Date of admission: 12/14/19 12:28 Attending physician: Gianluca Grissom Consults: 12/14/19 12:29 Consult Physician Routine Consulting Provider: Rony Strange Consult Reason/Comments: CHF Do you want consulting provider notified?: Yes 12/15/19 09:03 Consult Physician Routine Consulting Provider: Zhen Dwyer Consult Reason/Comments: copd w resp fx Do you want consulting provider notified?: Yes 12/15/19 15:52 Consult Physician Routine Consulting Provider: Tonya Houser Consult Reason/Comments: positive blood cultures Do you want consulting provider notified?: Yes Primary care physician: [facility] Course: 74-year-old male one of my office patient with history of morbid obesity who seen Dr. Dominguez on cardiology regular basis who was in the hospital a few weeks ago for severe dyspnea and shortness of breath was treated for congestive heart failure and COPD along with A. fib with RVR and has done well has been doing well last few weeks till the last 5 days when he become more dyspneic and hypoxic having more palpitation more water retention has gain over 20 pound in the last 2 weeks his symptoms become a lot worse today ended up coming to the office was seen and evaluated found to be quite dyspneic had quite bed watch retention his pulse ox was running in the low 80 despite 3 L of O2 he was only around 92 percentile patient was sent to the emergency department at [facility] his BNP was over 8000 patient chest x-ray showed sign and symptom of congestive heart failure with fluid retention his troponin was slightly elevated his GFR was 39 EKG showed A. fib with pulse rate running in the 90s without any major ST or T wave abnormality. Patient was started on IV diuretics fluid restriction O2 updraft treatment and will be admitted to the hospital. 12/14: Patient is seen today in follow-up. He has been seen by Dr. Strange last evening and recommended continuing IV Lasix. Patient has decreased edema today. He states that his breathing is improving from yesterday. He has been diuresing well and weight is down 1 kg. Repeat lab work reveals a CBC unremarkable, chloride 93, CO2 34, BUN 34 and creatinine 1.43. Blood sugar in the 170s. Consult will be added for Dr. Dwyer for COPD exacerbation as well as Doppler studies of the lower extremities, VQ scan to rule out DVT and PE. VQ Scan Was Low Probability for Pulmonary Embolism. Patient Has Been Afebrile, Heart Rate 81, Blood Pressure 111/71, Pulse Ox 93% on Room Air. 12/15: Patient states that he again today is feeling better from yesterday. He had a positive blood culture last evening and vancomycin was added as well as consult with Dr. Houser. This cultures come back as coag-negative staph. He is currently on IV Lasix 60 mg every 8 hours and Solu-Medrol 40 mg every [address] Dwyer regarding consultation and he will see the patient later today. Patient has been afebrile, heart rate 90, blood pressure 120/77, pulse ox 90% on 2 L nasal cannula. Repeat lab work reveals chloride 92, CO2 35, BUN 42 creatinine 1.36. Blood sugars are running between 155 and 172. 12/16: Patient has minimal epistaxis today, and no more purulence, cough seems to be glue bone drier, still some mucus, no shortness of breath, patient has no palpitations, nebulized treatments is working, patient remains on IV Solu-Medrol, patient has improvement of dyspnea and exertion, he was seen by ENT Aydee last admission for this as best epistaxis, and still has intermittent nose bleeding, a free and will be started, patient remains on anticoagulation and till the epistaxis is uncontrolled. White dissipating discharge in the next 24 hours, was cleared by pulmonary. We will change IV Lasix to oral 40 mg twice a day, currently is on oral Zithromax, off Levaquin. 12/17 pt respitarory problems i,mproved no more epistaxis. pt feels ready for discarge to home today, a free and has helped, on oral prednisone without diarrhea, patient will be seen by a PCP as an outpatient Dr. Moya in about [address] Grissom 1-[address] Dominguez in 3 weeks. Vitals and physical exam are stable, oral prednisone on discharge Zithromax on discharge FINAL DIAGNOSIS 1 acute hypoxic respiratory failure improved: Combination of diastolic congestive heart failure acute with COPD exacerbation and acute by basilar pneumonia. Consults with cardiology and pulmonary medicine. Zithromax on disc harge 2 CHF exacerbation mostly acute diastolic with recurrent episode, patient will be on 60 mg of IV Lasix every 8 hours watch for any water retention and urine output for now and daily weight. Consult cardiology review his echocardiogram from last time also look for any secondary involvement such as acute pulmonary edema secondary to unstable angina and recurrent chest pain which can be part of the symptoms patient is doing with specially with the recurrent episode sure. 3 COPD with mild exacerbation: Patient be hospitalized will consult Dr. Dwyer of patient will be on Solu-Medrol 40 mg IV every 8 hours along with DuoNeb and Pulmicort.Oral prednisone on discharge with Symbicort 4 persistent atrial fibrillation: Patient pulse rates under control still on anticoagulation. Continue with chronic kidney disease stage III eliquis to 5 mg twice daily. 5 acute kidney injury: With worsening BUN/creatinine GFR down to 39 continue to watch kidney function and watch for any obstructive uropathy. 6 elevated troponin with possible non-ST PA. Cardiology consult. 7 Bibasilar pneumonia specially with chronic COPD . oral azithromycin for now. Pulmonary following 8 hypertension: Remain on metoprolol titrate 2050 mg twice a day along with Cardizem 60 mg twice a day. 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 10 hyperlipidemia: Continue patient on pravastatin 40 mg daily. 12 severe obstructive sleep apnea: Patient was started on BiPAP at home apparently is not using it many hours of the day see very is any further adjustment require to be done or if patient can benefit from official sleep study for O2 adjusted CPAP. Compliance to use oxygen and BiPAP still a problem. 13 chronic gout: Patient will be on Zyloprim and colchicine. 14 chronic vascular cellulitis with significant swelling of the lower extremity after the edema is down is still having any significant cellulitic event will use Silvadene cream 15 GI prophylaxis: Patient be on Pepcid 20 mg daily. 16 DVT prophylaxis: Patient is on anticoagulation with Eliquis. 17. Epistaxis, intermittent, on eloquis we are going to start afrin, scheduled every 6 hours, patient was seen by by ENT during his last admission, CODE STATUS: Full code. Discharge plan: Home Thursday Patient Condition at Discharge: Stable Plan - Discharge Summary Discharge Rx Participant: No New Discharge Prescriptions: New Oxymetazoline 0.05% Nasl [place] [Afrin 0.05% Nasal [place]] 3 spray EA NOSTRIL TID bottle Famotidine [Pepcid] 20 mg PO DAILY #30 tab Sildenafil [Revatio] 20 mg PO TID #90 tab Budesonide-Formot 160-4.5 Mcg [Symbicort 160-4.5 Mcg Inhaler] 2 puff INHALATION RT-BID #1 puff Azithromycin [Zithromax] 500 mg PO DAILY 3 Days #3 tab predniSONE [Deltasone] 40 mg PO DAILY #10 tab Furosemide [Lasix] 60 mg PO BID #90 tablet Continue Pravastatin Sodium [Pravachol] 20 mg PO BID Allopurinol [Zyloprim] 100 mg PO HS@2200 Potassium Chloride [Klor-Con 10] 10 meq PO W/SUPPER Colchicine [Colcrys] 0.6 mg PO DAILY@0700 Diltiazem Oral [Cardizem*] 60 mg PO BID@0700,2200 Albuterol Sulfate [Albuterol Sulfate Hfa] 2 puff PO RT-Q6H PRN PRN Reason: Shortness Of Breath Apixaban [Eliquis] 2.5 mg PO BID #60 tablet Metoprolol Tartrate [Lopressor] 150 mg PO BID-W/MEALS #180 tab Mucinex (Unknown Strength) 1 tab PO QAM PRN PRN Reason: Congestion Discontinued Furosemide [Lasix] 20 mg PO DAILY Furosemide [Lasix] 40 mg PO BID Sildenafil Citrate [Sildenafil] 20 mg PO BID Discharge Medication List Allopurinol [Zyloprim] 100 mg PO HS@2200 12/10/15 [History] Potassium Chloride [Klor-Con 10] 10 meq PO W/SUPPER 12/10/15 [History] Pravastatin Sodium [Pravachol] 20 mg PO BID 12/10/15 [History] Colchicine [Colcrys] 0.6 mg PO DAILY@0700 09/27/16 [History] Diltiazem Oral [Cardizem*] 60 mg PO BID@0700,2200 10/17/19 [History] Albuterol Sulfate [Albuterol Sulfate Hfa] 2 puff PO RT-Q6H PRN 11/18/19 [History] Apixaban [Eliquis] 2.5 mg PO BID #60 tablet 11/24/19 [Rx] Metoprolol Tartrate [Lopressor] 150 mg PO BID-W/MEALS #180 tab 11/24/19 [Rx] Mucinex (Unknown Strength) 1 tab PO QAM PRN 12/14/19 [History] Azithromycin [Zithromax] 500 mg PO DAILY 3 Days #3 tab 12/18/19 [Rx] Budesonide-Formot 160-4.5 Mcg [Symbicort 160-4.5 Mcg Inhaler] 2 puff INHALATION RT-BID #1 puff 12/18/19 [Rx] Famotidine [Pepcid] 20 mg PO DAILY #30 tab 12/18/19 [Rx] Furosemide [Lasix] 60 mg PO BID #90 tablet 12/18/19 [Rx] Oxymetazoline 0.05% Nasl [place] [Afrin 0.05% Nasal [place]] 3 spray EA NOSTRIL TID bottle 12/18/19 [Rx] Sildenafil [Revatio] 20 mg PO TID #90 tab 12/18/19 [Rx] predniSONE [Deltasone] 40 mg PO DAILY #10 tab 12/18/19 [Rx] Follow up Appointment(s)/Referral(s): Elida Dominguez MD [STAFF PHYSICIAN] - 3 Weeks (Call Thursday office to make follow up appointment) Gianluca Grissom MD [Primary Care Provider] - 1-2 days (Call Thursday to set up follow appointment ) Zhen Dwyer DO [Doctor of Osteopathic Medicine] - 2 Weeks (Call Thursday to set up follow up appointment) Patient Instructions/Handouts: Heart Failure (DC) Discharge Disposition: HOME SELF-CARE
--- NOTE | 2019-12-18 15:38 | PN ---
PROGRESS NOTE DATE OF SERVICE: 12/18/2019 REASON FOR FOLLOWUP: Positive blood culture. INTERVAL HISTORY: The patient is currently afebrile. The patient is breathing comfortably. Patient denies having any chest pain. No shortness of breath. Occasional cough. No abdominal pain. No diarrhea. Overall feeling better and currently not on any oxygen. PHYSICAL EXAMINATION: Blood pressure 116/76, pulse of 88, temperature 97.5. He is 93% on room air. General description: The patient is an elderly male up in the chair in no distress. Respiratory system: Unlabored breathing, decreased breath sounds at the base, no wheeze. Heart S1, S2. Regular rate. Abdomen: Soft, no tenderness. LABS: Creatinine 1.51. Blood culture repeat has been negative. DIAGNOSTIC IMPRESSION AND PLAN: Patient positive blood culture with Staph epidermidis, likely skin contaminant. Has no clinical disease to go along with it. The patient is currently monitored off antibiotic therapy and repeat blood culture has been negative. Recommend no antibiotic on discharge. As for the positive blood cultures concern, continue supportive care. MMODL / IJN: [id number] /
[2019-12-18] MEDS ORDERED: FUROSEMIDE 20 MG TAB PO SCH (16:00)
--- NOTE | 2019-12-18 16:08 | PN ---
PROGRESS NOTE PULMONARY/CRITICAL CARE PROGRESS NOTE: DATE OF SERVICE: 12/18/2019 This is a pleasant 74-year-old male who I was asked to see by Dr. Grissom. He has a history of both shortness of breath, likely related to underlying COPD as well as CHF. Anyway, the patient is feeling much better. He recently had an episode of purulent tracheobronchitis and/or bronchopneumonia. He had been seeing the other pulmonary group. Dr. Grissom wanted me to see him and, in fact, the patient wanted to the us. He does have a history of obesity, sleep apnea syndrome, poorly compliant with CPAP, underlying COPD, chronic atrial fibrillation, as well as other medical problems. He is quite obese and may have some restrictive lung disease secondary to obesity as well. The patient is feeling much better. He has been weaned off of O2. PHYSICAL EXAMINATION: Current vital signs include a temperature 97.5, heart rate 80, respiratory rate 18, blood pressure 116/76, mean 89, room air saturation 93%. He appears in no acute distress. HEENT: Examination is grossly unremarkable. NECK: Supple. Full range of motion. No adenopathy. Neck veins are flat. CARDIOVASCULAR: Examination reveals regular rhythm and rate. Heart rate 80. S1, S2 normal. Heart sounds are distant. LUNGS: Reveal mostly clear breath sounds. No wheezes, rhonchi, or crackles. ABDOMEN is very obese. Bowel sounds are heard. EXTREMITIES: Reveal chronic venous stasis changes. There is slight edema. There is hyperpigmentation of the lower extremities. SKIN: Without rash. NEUROLOGIC: Examination is brief but nonfocal. LABS: Reviewed. Nothing new from today other than a creatinine of 1.51. Microbiology is negative except for Staph epidermidis in the blood. Current medications are reviewed. The vancomycin was discontinued. ASSESSMENT: 1. Shortness of breath, most likely related to underlying congestive heart failure. There also may be a component of pneumonia and/or purulent tracheobronchitis as well as underlying chronic obstructive pulmonary disease. 2. Obesity with sleep apnea syndrome, poorly compliant with CPAP. 3. Probable underlying chronic obstructive pulmonary disease, yet to be fully identified and characterized. Outpatient PFT and 6 minute walk distance needed. 4. Rule out restrictive lung disease secondary to obesity. 5. History of chronic atrial fibrillation. 6. History of gastroesophageal reflux disease. 7. Hyperlipidemia. 8. Hypertension. 9. Degenerative joint disease. 10.Recent admission for bronchopneumonia. 11.Peripheral vascular occlusive disease. 12.Gout. 13.History of methicillin-resistant Staphylococcus aureus infection. 14.Chronic back pain. 15.History of arthritis. PLAN: Currently, the patient is doing reasonably well. He has been weaned off of oxygen. He is going to follow with me in the office. I am not sure that he will be discharged today or tomorrow. The patient does have some unanswered questions particularly related to whether or not he has underlying COPD. PFTs and a 6 minute walk distance will help. MMODL / IJN: [id number] /
== END 2019-12-18 14:57 | disposition home or self-care (01) | DRG 291 ==
LOC: EC 10:19 → 2SICU 12:28 → 3SCARD 13:36
PROVIDERS: ADMIT Internal Medicine Geriatric Medicine; ATTEND Internal Medicine Geriatric Medicine
DX: I13.0 Hypertensive heart and chronic kidney disease with heart failure and stage 1 through stage 4 chronic kidney disease, or unspecified chronic kidney disease (principal); I50.33 Acute on chronic diastolic (congestive) heart failure; J18.9 Pneumonia, unspecified organism; J96.01 Acute respiratory failure with hypoxia; I48.11 Longstanding persistent atrial fibrillation; J44.0 Chronic obstructive pulmonary disease with (acute) lower respiratory infection; J44.1 Chronic obstructive pulmonary disease with (acute) exacerbation; L03.119 Cellulitis of unspecified part of limb; Z68.42 Body mass index [BMI] 45.0-49.9, adult; N17.9 Acute kidney failure, unspecified; R78.81 Bacteremia; G89.29 Other chronic pain; B95.7 Other staphylococcus as the cause of diseases classified elsewhere; B96.89 Other specified bacterial agents as the cause of diseases classified elsewhere; E09.22 Drug or chemical induced diabetes mellitus with diabetic chronic kidney disease; E66.01 Morbid (severe) obesity due to excess calories; E78.5 Hyperlipidemia, unspecified; G47.33 Obstructive sleep apnea (adult) (pediatric); Z99.89 Dependence on other enabling machines and devices; I27.20 Pulmonary hypertension, unspecified; I25.10 Atherosclerotic heart disease of native coronary artery without angina pectoris; Z20.828 Contact with and (suspected) exposure to other viral communicable diseases; I07.1 Rheumatic tricuspid insufficiency; L30.9 Dermatitis, unspecified; I25.110 Atherosclerotic heart disease of native coronary artery with unstable angina pectoris; M13.0 Polyarthritis, unspecified; M1A.9XX0 Chronic gout, unspecified, without tophus (tophi); N18.3 Chronic kidney disease, stage 3 (moderate); R04.0 Epistaxis; T38.0X5A Adverse effect of glucocorticoids and synthetic analogues, initial encounter; Z79.01 Long term (current) use of anticoagulants; Z79.899 Other long term (current) drug therapy; Z82.3 Family history of stroke; Z86.14 Personal history of Methicillin resistant Staphylococcus aureus infection; Z87.01 Personal history of pneumonia (recurrent); Z87.891 Personal history of nicotine dependence; Z90.49 Acquired absence of other specified parts of digestive tract; Z91.19 Patient's noncompliance with other medical treatment and regimen; Z96.653 Presence of artificial knee joint, bilateral; M54.5 Low back pain; I87.8 Other specified disorders of veins; E09.51 Drug or chemical induced diabetes mellitus with diabetic peripheral angiopathy without gangrene; Z82.0 Family history of epilepsy and other diseases of the nervous system; R79.89 Other specified abnormal findings of blood chemistry
CPT/HCPCS: 36415; 71045; 78582; 80048; 80053; 82565; 83605; 83735; 83880; 84484; 85025; 85610; 85730; 87040; 87077; 87186; 93005; 93970; 94640; 94760; 96374; 96375; 96376; 99291

== ENCOUNTER → 2020-04-10 | Outpatient (CLI) | payer MEDICARE, BC ==
--- NOTE | 2020-04-10 14:00 | US ---
EXAMINATION TYPE: US venous doppler duplex LE DATE OF EXAM: 04/10/2020 1:27 PM COMPARISON: US CLINICAL HISTORY: I50.30 diastolic heart failure. Bilateral leg swelling SIDE PERFORMED: Bilateral TECHNIQUE: The lower extremity deep venous system is examined utilizing real time linear array sonog vera with graded compression, doppler sonography and color-flow sonography. VESSELS IMAGED: External Iliac Vein (EIV) Common Femoral Vein Deep Femoral Vein Greater Saphenous Vein * Femoral Vein Popliteal Vein Small Saphenous Vein * Proximal Calf Veins (* superficial vessels) Right Leg: Negative for DVT Left Leg: Negative for DVT IMPRESSION: 1. Bilateral lower extremity negative for deep venous thrombosis.
== END | disposition home or self-care (01) ==
LOC: RADUSWWP 12:56
PROVIDERS: ATTEND Internal Medicine Geriatric Medicine
DX: I50.30 Unspecified diastolic (congestive) heart failure (principal)
CPT/HCPCS: 93970

== ENCOUNTER 2020-10-01 16:25 | Inpatient (IN) | payer MEDICARE, BC ==
[2020-10-01] MEDS ORDERED: IPRATROPIUM 0.5 MG/2.5 ML NEBU INHALATION STA (16:51)
[2020-10-01] MEDS ORDERED: ALBUTEROL NEBULIZED 2.5 MG/3 ML INHALATION STA (16:51)
[2020-10-01] MEDS ORDERED: DEXAMETHASONE SOD PHOSPHATE 10 MG/ML 1 ML VIAL IV STA (16:51)
--- NOTE | 2020-10-01 16:55 | ED ---
General Adult HPI - General Chief complaint: Shortness of Breath Stated complaint: LUBNA Time Seen by Provider: 10/01/20 16:35 Source: patient Mode of arrival: ambulatory Limitations: no limitations - History of Present Illness Initial comments: Dictation was produced using [employer] dictation software. please excuse any grammatical, word or spelling errors. This patient was cared for during a federal and state declared state of emergency secondary to Covid 19 Chief Complaint: 74-year-old male sent in from primary care physician's office for hypoxia History of Present Illness: Patient is a 74-year-old male. He has multiple comorbidities he was at his primary care physician's office. He was found to hypoxic in the 70 percents. Patient states he has oxygen at home that he only uses whenever he feels like he needs him. He has history of heart failure and COPD. Patient last had a cigarette 40 years ago. Patient states that he may have forgotten a few of his water pills recently. Patient denies any fever or constitutional symptoms. He has no pain complaints. Patient received both of his coronavirus vaccines. The ROS documented in this emergency department record has been reviewed and confirmed by me. Those systems with pertinent positive or negative responses have been documented in the HPI. All other systems are other negative and/or noncontributory. PHYSICAL EXAM: General Impression: Alert and oriented x3, mildly dyspneic HEENT: Normocephalic atraumatic, extra-ocular movements intact, pupils equal and reactive to light bilaterally, mucous membranes moist. Cardiovascular: Heart regular rate and rhythm Chest: 5 word sentences, diffuse lung wheezing Abdomen: abdomen soft, non-tender, non-distended, no organomegaly Musculoskeletal: Pulses present and equal in all extremities, 1+ peripheral edema Motor: no focal deficits noted Neurological: CN II-XII grossly intact, no focal motor or sensory deficits noted Skin: Intact with no visualized rashes Psych: Normal affect and mood ED course: 74-year-old male with multiple comorbidities presents to the emergency department for hypoxic respiratory failure. He had a level of oxygen in the 70 percents. Patient does not word daily oxygen at home. He only wears oxygen chart review shows that patient was admitted for hypoxic respiratory failure last year secondary to CHF and COPD exacerbation with possible basilar pneumonia. He was admitted with consultation to pulmonology and cardiology. Signs upon arrival shows an on 4 L is a cannula, heart rate of 1.5, rest of vital signs within acceptable limits. Laboratory evaluation obtained. CBC is within acceptable limits. Coag neck panel is negative. Arterial blood gas shows pH of 7.41. PCO2 46 with a bicarb of 29. PO2 was 72 with FiO2 of 40. Patient was given higher FiO2 via BiPAP. Metabolic panel is unremarkable. Rotavirus negative. Chest x-ray is not acute. At this point patient's clinical symptoms are secondary to COPD exacerbation. I did contact patient's primary care physician who requested that a CT angioma be obtained to rule out for pulmonary emboli. He does take eliquis regularly for A. fib. CT angios the chest shows. No evidence of pulmonary embolism. There is some ground glass interstitial pulmonary infiltrate. EKG interpretation: Ventricular rate 120, A. fib with RVR, QRS 134, QTc 55. No [place] prolongation, no QTC prolongation, no ST or T-wave changes noted. EKG compared to 12/14/2019 showing no changes. Overall, this EKG is unremarkable - Related Data Home Medications Medication Instructions Recorded Confirmed Potassium Chloride [Klor-Con 10] 10 meq PO HS 12/10/15 10/01/20 Pravastatin Sodium [Pravachol] 20 mg PO HS 12/10/15 10/01/20 allopurinoL [Zyloprim] 100 mg PO DAILY 12/10/15 10/01/20 Colchicine [Colcrys] 0.6 mg PO DAILY 09/27/16 10/01/20 Diltiazem Oral [Cardizem*] 60 mg PO BID 10/17/19 10/01/20 Albuterol Sulfate [Albuterol 2 puff PO RT-Q6H PRN 11/18/19 10/01/20 Sulfate Hfa] Apixaban [Eliquis] 5 mg PO BID 10/01/20 10/01/20 Furosemide [Lasix] 80 mg PO DAILY 10/01/20 10/01/20 Metoprolol Tartrate [Lopressor] 100 mg PO BID 10/01/20 10/01/20 Sildenafil [Revatio] 20 mg PO BID 10/01/20 10/01/20 Previous Rx's Medication Instructions Recorded Budesonide-Formot 160-4.5 Mcg 2 puff INHALATION RT-BID #1 puff 12/18/19 [Symbicort 160-4.5 Mcg Inhaler] Famotidine [Pepcid] 20 mg PO DAILY #30 tab 12/18/19 Allergies Allergy/AdvReac Type Severity Reaction Status Date / Time No Known Allergies Allergy Verified 10/01/20 18:00 Review of Systems ROS Statement: Those systems with pertinent positive or pertinent negative responses have been documented in the HPI. ROS Other: All systems not noted in ROS Statement are negative. Past Medical History Past Medical History: Atrial Fibrillation, Heart Failure, COPD, GERD/Reflux, Hyperlipidemia, Hypertension, Osteoarthritis (OA), Pneumonia, Prostate Disorder, Renal Disease, Sleep Apnea/CPAP/BIPAP, Vascular Disorder Additional Past Medical History / Comment(s): Acute respiratory failure 2ndary to interstitial pneumonia/sepsis/CHF, chronic lower extremity edema/discoloration, venous insufficiency, CHLOE uses CPap on occasion, chronic low back pain, generalized arthritis, gout bilateral feet, 2018 MRSA infection R buttock with sepsis. History of Any Multi-Drug Resistant Organisms: MRSA Date of last positivie culture/infection: 04/08/18 MDRO Source:: buttock wound Past Surgical History: Cholecystectomy, Heart Catheterization, Joint Replacement Additional Past Surgical History / Comment(s): 02/19/17 diagnostic cardiac cath, bilateral total knee arthroplasty, ventral hernia repair, colonoscopies, I&D R buttock. Past Anesthesia/Blood Transfusion Reactions: No Reported Reaction Past Psychological History: No Psychological Hx Reported Past Alcohol Use History: None Reported Past Drug Use History: None Reported - Past Family History Father Family Medical History: CVA/TIA Additional Family Medical History / Comment(s): Dad at age 89 from stroke. Mother Family Medical History: Dementia Additional Family Medical History / Comment(s): Mother is alive at age 90 with dementia. Sister(s) Additional Family Medical History / Comment(s): Patient has 2 sisters with no major medical problems. Patient does not have any brothers. Patient has 2 adult children with no major medical problems. General Exam Limitations: no limitations Course Vital Signs 10/01/20 10/01/20 10/01/20 16:30 16:57 18:11 Temperature 98.0 F Pulse Rate 125 H 117 H 109 H Respiratory 22 24 21 Rate Blood Pressure 142/81 154/103 147/111 O2 Sat by Pulse 78 L 94 L 100 Oximetry Medical Decision Making - Lab Data Result diagrams: 10/01/20 16:50 10/01/20 16:50 Lab Results 10/01/20 10/01/20 10/01/20 Range/Units 16:50 16:50 16:50 WBC 10.9 H (3.8-10.6) k/uL RBC 5.21 (4.30-5.90) m/uL Hgb 14.5 (13.0-17.5) gm/dL Hct 45.1 (39.0-53.0) % MCV 86.6 (80.0-100.0) fL MCH 27.8 (25.0-35.0) pg MCHC 32.1 (31.0-37.0) g/dL RDW 14.6 (11.5-15.5) % Plt Count 142 L (150-450) k/uL MPV 6.9 Neutrophils % 81 % Lymphocytes % 8 % Monocytes % 7 % Eosinophils % 3 % Basophils % 0 % Neutrophils # 8.9 H (1.3-7.7) k/uL Lymphocytes # 0.9 L (1.0-4.8) k/uL Monocytes # 0.7 (0-1.0) k/uL Eosinophils # 0.3 (0-0.7) k/uL Basophils # 0.0 (0-0.2) k/uL PT 11.0 (9.0-12.0) sec INR 1.0 (<1.2) APTT 25.4 (22.0-30.0) sec Sample Site ABG pH (7.35-7.45) ABG pCO2 (35-45) mmHg ABG pO2 (83-108) mmHg ABG HCO3 (21-25) mmol/L ABG Total CO2 (19-24) mmol/L ABG O2 Saturation (94-97) % ABG Base Excess mmol/L Steve Test FiO2 % Sodium (137-145) mmol/L Potassium (3.5-5.1) mmol/L Chloride (98-107) mmol/L Carbon Dioxide (22-30) mmol/L Anion Gap mmol/L BUN (9-20) mg/dL Creatinine (0.66-1.25) mg/dL Est GFR (CKD-EPI)AfAm (>60 ml/min/1.73 sqM) Est GFR (CKD-EPI)NonAf (>60 ml/min/1.73 sqM) Glucose (74-99) mg/dL Calcium (8.4-10.2) mg/dL Magnesium (1.6-2.3) mg/dL Total Bilirubin (0.2-1.3) mg/dL AST (17-59) U/L ALT (4-49) U/L Alkaline Phosphatase (38-126) U/L Troponin I (0.000-0.034) ng/mL NT-Pro-B Natriuret Pep pg/mL Total Protein (6.3-8.2) g/dL Albumin (3.5-5.0) g/dL Coronavirus (PCR) Not Detected (Not Detectd) 10/01/20 10/01/20 10/01/20 Range/Units 16:50 16:50 16:50 WBC (3.8-10.6) k/uL RBC (4.30-5.90) m/uL Hgb (13.0-17.5) gm/dL Hct (39.0-53.0) % MCV (80.0-100.0) fL MCH (25.0-35.0) pg MCHC (31.0-37.0) g/dL RDW (11.5-15.5) % Plt Count (150-450) k/uL MPV Neutrophils % % Lymphocytes % % Monocytes % % Eosinophils % % Basophils % % Neutrophils # (1.3-7.7) k/uL Lymphocytes # (1.0-4.8) k/uL Monocytes # (0-1.0) k/uL Eosinophils # (0-0.7) k/uL Basophils # (0-0.2) k/uL PT (9.0-12.0) sec INR (<1.2) APTT (22.0-30.0) sec Sample Site ABG pH (7.35-7.45) ABG pCO2 (35-45) mmHg ABG pO2 (83-108) mmHg ABG HCO3 (21-25) mmol/L ABG Total CO2 (19-24) mmol/L ABG O2 Saturation (94-97) % ABG Base Excess mmol/L Steve Test FiO2 % Sodium 140 (137-145) mmol/L Potassium 3.8 (3.5-5.1) mmol/L Chloride 104 (98-107) mmol/L Carbon Dioxide 26 (22-30) mmol/L Anion Gap 10 mmol/L BUN 17 (9-20) mg/dL Creatinine 1.05 (0.66-1.25) mg/dL Est GFR (CKD-EPI)AfAm 82 (>60 ml/min/1.73 sqM) Est GFR (CKD-EPI)NonAf 71 (>60 ml/min/1.73 sqM) Glucose 120 H (74-99) mg/dL Calcium 9.3 (8.4-10.2) mg/dL Magnesium 1.9 (1.6-2.3) mg/dL Total Bilirubin 1.1 (0.2-1.3) mg/dL AST 22 (17-59) U/L ALT 16 (4-49) U/L Alkaline Phosphatase 117 (38-126) U/L Troponin I <0.012 (0.000-0.034) ng/mL NT-Pro-B Natriuret Pep 2460 pg/mL Total Protein 7.0 (6.3-8.2) g/dL Albumin 4.1 (3.5-5.0) g/dL Coronavirus (PCR) (Not Detectd) 10/01/20 Range/Units 17:15 WBC (3.8-10.6) k/uL RBC (4.30-5.90) m/uL Hgb (13.0-17.5) gm/dL Hct (39.0-53.0) % MCV (80.0-100.0) fL MCH (25.0-35.0) pg MCHC (31.0-37.0) g/dL RDW (11.5-15.5) % Plt Count (150-450) k/uL MPV Neutrophils % % Lymphocytes % % Monocytes % % Eosinophils % % Basophils % % Neutrophils # (1.3-7.7) k/uL Lymphocytes # (1.0-4.8) k/uL Monocytes # (0-1.0) k/uL Eosinophils # (0-0.7) k/uL Basophils # (0-0.2) k/uL PT (9.0-12.0) sec INR (<1.2) APTT (22.0-30.0) sec Sample Site Right Radial ABG pH 7.41 (7.35-7.45) ABG pCO2 46 H (35-45) mmHg ABG pO2 72 L (83-108) mmHg ABG HCO3 29 H (21-25) mmol/L ABG Total CO2 30 H (19-24) mmol/L ABG O2 Saturation 94.0 (94-97) % ABG Base Excess 4.4 mmol/L Steve Test yes FiO2 40 % Sodium (137-145) mmol/L Potassium (3.5-5.1) mmol/L Chloride (98-107) mmol/L Carbon Dioxide (22-30) mmol/L Anion Gap mmol/L BUN (9-20) mg/dL Creatinine (0.66-1.25) mg/dL Est GFR (CKD-EPI)AfAm (>60 ml/min/1.73 sqM) Est GFR (CKD-EPI)NonAf (>60 ml/min/1.73 sqM) Glucose (74-99) mg/dL Calcium (8.4-10.2) mg/dL Magnesium (1.6-2.3) mg/dL Total Bilirubin (0.2-1.3) mg/dL AST (17-59) U/L ALT (4-49) U/L Alkaline Phosphatase (38-126) U/L Troponin I (0.000-0.034) ng/mL NT-Pro-B Natriuret Pep pg/mL Total Protein (6.3-8.2) g/dL Albumin (3.5-5.0) g/dL Coronavirus (PCR) (Not Detectd) Disposition Clinical Impression: Hypoxia Disposition: ADMITTED IP TO THIS HOSP Condition: Fair Decision Time: 20:32
[2020-10-01 16:58] LABS: Basophils % (A) 0 %; Eosinophils # (A) 0.3 k/uL (0-0.7); Eosinophils % (A) 3 %; HCT 45.1 % (39.0-53.0); HGB 14.5 gm/dL (13.0-17.5); Lymphocytes # (A) 0.9 k/uL (1.0-4.8); Lymphocytes % (A) 8 %; MCH 27.8 pg (25.0-35.0); MCHC 32.1 g/dL (31.0-37.0); MCV 86.6 fL (80.0-100.0); Mean Platelet Volume 6.9; Monocytes # (A) 0.7 k/uL (0-1.0); Monocytes % (A) 7 %; Neutrophils # (A) 8.9 k/uL (1.3-7.7); Neutrophils % (A) 81 %; Platelet Count 142 k/uL (150-450); RBC 5.21 m/uL (4.30-5.90); RDW 14.6 % (11.5-15.5); WBC 10.9 k/uL (3.8-10.6)
[2020-10-01 17:07] LABS: Albumin 4.1 g/dL (3.5-5.0); Calcium 9.3 mg/dL (8.4-10.2); Magnesium 1.9 mg/dL (1.6-2.3); Partial Thromboplastin Time 25.4 sec (22.0-30.0); Potassium 3.8 mmol/L (3.5-5.1); Total Bilirubin 1.1 mg/dL (0.2-1.3)
[2020-10-01 17:26] LABS: ABG Base Excess 4.4 mmol/L; ABG HCO3 29 mmol/L (21-25); ABG PCO2 46 mmHg (35-45); ABG PH 7.41 (7.35-7.45); ABG PO2 72 mmHg (83-108); ABG TCO2 30 mmol/L (19-24)
[2020-10-01 17:28] LABS: Allen Test Performed? yes
[2020-10-01] MEDS ORDERED: FUROSEMIDE 10 MG/ML 4 ML VIAL IV STA (19:14)
--- NOTE | 2020-10-01 19:20 | XR ---
EXAMINATION TYPE: XR chest 1V portable DATE OF EXAM: 10/01/2020 COMPARISON: 12/14/2019 HISTORY: Difficulty breathing TECHNIQUE: 2 views AP upright FINDINGS: There is coarse interstitial density in the lungs. Heart appears enlarged. There is no jaison s heart failure. I see no definite pleural effusion. There are chest leads. Thoracic aorta is atherom atous. IMPRESSION: Interstitial fibrotic changes. Cardiomegaly. No obvious heart failure. Heart and lungs no t changed compared to old exam.
[2020-10-01] MEDS ORDERED: AZITHROMYCIN 500 MG in SODIUM CHLORIDE 0.9% 250 ML IVPB STA (19:25)
--- NOTE | 2020-10-01 20:29 | CT ---
EXAMINATION TYPE: CT angio chest DATE OF EXAM: 10/01/2020 COMPARISON: Chest CT scan 11/03/2017 HISTORY: SOB CT DLP: 1119.1 mGycm Automated exposure control for dose reduction was used. CONTRAST: Performed with IV Contrast, patient injected with 100 mL of Isovue 370. There are 3-D post processed images. There is some diffuse pulmonary emphysema. There is groundglass diffuse pulmonary interstitial infilt rate. Heart is top normal in size. There is no pericardial effusion. There are a few paratracheal lym ph nodes that measure up to 1 cm. There are no hilar masses. There are bronchial multiple lymph nodes measuring up to 1 cm. Thoracic aorta is intact. There is no aneurysm or dissection. There is no evidence of filling defect in the pulmonary arteries. Thoracic spine is intact. There is no compression fracture. Sternum is intact. IMPRESSION: No evidence of pulmonary embolism. There is groundglass interstitial pulmonary infiltrate slightly wo rse than old CT scan and consistent with interstitial fibrosis. Pulmonary emphysema. There are new enlarged bronchial lymph nodes compared to old exam. No suspicious pulmonary mass.
[2020-10-01] MEDS: IPRATROPIUM-ALBUTEROL 3 ML NEB INHALATION SCH (22:03)
[2020-10-01] MEDS ORDERED: ALBUTEROL HFA INHALER INHALATION PRN (23:09)
[2020-10-02] MEDS: methylPREDNISolone SOD SUCCI 125 MG/2 ML VIAL IV SCH ×4 (00:42→23:33)
[2020-10-02] MEDS: FUROSEMIDE 10 MG/ML 4 ML VIAL IV SCH ×4 (00:42→23:33)
[2020-10-02] MEDS: SYMBICORT 160-4.5 MCG INHALER INHALATION SCH ×2 (07:17→20:40)
[2020-10-02] MEDS: IPRATROPIUM-ALBUTEROL 3 ML NEB INHALATION SCH ×4 (07:17→20:41)
[2020-10-02 07:33] LABS: Glucose,Whole Blood 191 mg/dL (75-99)
[2020-10-02] MEDS: FAMOTIDINE 20 MG TAB PO SCH (08:10)
[2020-10-02] MEDS: allopurinoL 100 MG TAB PO SCH (08:11)
[2020-10-02] MEDS: INSULIN ASPART (NovoLOG) 100 UNIT/ML VIAL SQ SCH ×6 (08:11→20:57)
[2020-10-02] MEDS: APIXABAN 5 MG TAB PO SCH ×2 (08:11→20:57)
[2020-10-02] MEDS: DILTIAZEM ORAL 60 MG TAB PO SCH ×2 (08:33→20:57)
[2020-10-02] MEDS: COLCHICINE 0.6 MG EACH PO SCH (08:33)
[2020-10-02] MEDS: METOPROLOL TARTRATE 50 MG TAB PO SCH ×2 (08:33→20:57)
[2020-10-02] MEDS ORDERED: FUROSEMIDE 80 MG TAB PO SCH (09:00)
--- NOTE | 2020-10-02 09:34 | P.CNPUL ---
History of Present Illness Consult date: 10/02/20 Requesting physician: Gianluca Grissom Reason for consult: dyspnea, cough, hypoxemia, pulmonary fibrosis, abnormal CXR/CT Chief complaint: Shortness of breath. History of present illness: 74-year-old male, who seen in the emergency department, on October 01. The patient comes into the emergency department complaining of shortness of breath. He apparently has not been feeling well for about 2 weeks or so. He apparently was found to have a saturation of 70%, when it was last checked. He does use oxygen at home, but does not use it 09/02. More recently, because he's not been feeling well, he does use it more frequently and mostly all the time. The patient apparently has a history of COPD and heart failure. The patient smoked maybe about 16 years as so, at less than one pack a day. The patient's major issues include shortness of breath with any activity, even at rest. He denies any fever or chills. Does cough. Doesn't produce any phlegm. As x-ray and CAT scan are consistent with interstitial lung disease. He has seen our nurse practitioner in the office. CT angiogram did not reveal a pulmonary embolism. I will have to review his office notes to see whether or not the patient has had pulmonary function tests, and a high resolution computed tomography scan. He is quite obese. His medical problems include hyperlipidemia, gout, atrial fibrillation, congestive heart failure, GERD, hyperlipidemia, hypertension, osteoarthritis, sleep apnea, chronic venous insufficiency of the lower extremities, chronic back pain, and a MRSA infection in his buttock with sepsis in 2018. White count is 10.9, hemoglobin 14.5, hematocrit 45.1, and platelet count 142,000. Arterial blood gases on 40% show a PaO2 of 72, a pCO2 of 46, and a pH 7.41. Sodium 140, potassium 3.8, chlorides 104, CO2 26, anion gap 10, BUN 17, creatinine 1.05. His COVID test was negative. Review of Systems REVIEW OF SYSTEMS: CONSTITUTIONAL: [Negative.] NEUROLOGIC: [ Negative.] HEENT: [ Negative.] CARDIAC: [Negative.] PULMONARY: Progressive shortness of breath, dry cough, and some chest congestion. GI: [Negative.] : [Negative.] RHEUMATOLOGIC: [ Negative.] IMMUNOLOGIC: [ Negative.] ENDOCRINE: [Negative. ] DERMATOLOGIC: [Negative.] Past Medical History Past Medical History: Atrial Fibrillation, Heart Failure, COPD, GERD/Reflux, Hyperlipidemia, Hypertension, Osteoarthritis (OA), Pneumonia, Prostate Disorder, Renal Disease, Sleep Apnea/CPAP/BIPAP, Vascular Disorder Additional Past Medical History / Comment(s): Acute respiratory failure 2ndary to interstitial pneumonia/sepsis/CHF, chronic lower extremity edema/discoloration, venous insufficiency, CHLOE uses CPap on occasion, chronic low back pain, generalized arthritis, gout bilateral feet, 2018 MRSA infection R buttock with sepsis. History of Any Multi-Drug Resistant Organisms: MRSA Date of last positivie culture/infection: 04/08/18 MDRO Source:: buttock wound Past Surgical History: Cholecystectomy, Heart Catheterization, Joint Replacement Additional Past Surgical History / Comment(s): 02/19/17 diagnostic cardiac cath, bilateral total knee arthroplasty, ventral hernia repair, colonoscopies, I&D R buttock. Past Anesthesia/Blood Transfusion Reactions: No Reported Reaction Past Psychological History: No Psychological Hx Reported Additional Psychological History / Comment(s): Pt resides with his spouse. He uses a cane/walker prn, He has a nebulizer. He drives. Smoking Status: Former smoker Past Alcohol Use History: None Reported Additional Past Alcohol Use History / Comment(s): Pt started smoking in 1962 and quit in 1977. He useed to drink 3-4 beers per day but now only drinks on holidays. Past Drug Use History: None Reported - Past Family History Father Family Medical History: CVA/TIA Additional Family Medical History / Comment(s): Dad at age 89 from stroke. Mother Family Medical History: Dementia Additional Family Medical History / Comment(s): Mother is alive at age 90 with dementia. Sister(s) Additional Family Medical History / Comment(s): Patient has 2 sisters with no major medical problems. Patient does not have any brothers. Patient has 2 ad ult children with no major medical problems. Medications and Allergies Home Medications Medication Instructions Recorded Confirmed Type Potassium Chloride [Klor-Con 10] 10 meq PO HS 12/10/15 10/01/20 History Pravastatin Sodium [Pravachol] 20 mg PO HS 12/10/15 10/01/20 History allopurinoL [Zyloprim] 100 mg PO DAILY 12/10/15 10/01/20 History Colchicine [Colcrys] 0.6 mg PO DAILY 09/27/16 10/01/20 History Diltiazem Oral [Cardizem*] 60 mg PO BID 10/17/19 10/01/20 History Albuterol Sulfate [Albuterol 2 puff PO RT-Q6H PRN 11/18/19 10/01/20 History Sulfate Hfa] Budesonide-Formot 160-4.5 Mcg 2 puff INHALATION RT-BID #1 puff 12/18/19 10/01/20 Rx [Symbicort 160-4.5 Mcg Inhaler] Famotidine [Pepcid] 20 mg PO DAILY #30 tab 12/18/19 10/01/20 Rx Apixaban [Eliquis] 5 mg PO BID 10/01/20 10/01/20 History Furosemide [Lasix] 80 mg PO DAILY 10/01/20 10/01/20 History Metoprolol Tartrate [Lopressor] 100 mg PO BID 10/01/20 10/01/20 History Sildenafil [Revatio] 20 mg PO BID 10/01/20 10/01/20 History Allergies Allergy/AdvReac Type Severity Reaction Status Date / Time No Known Allergies Allergy Verified 10/01/20 18:00 Physical Exam Osteopathic Statement: *. No significant issues noted on an osteopathic structural exam other than those noted in the History and Physical/Consult. Vitals: Vital Signs Temp Pulse Pulse Resp BP BP Pulse Ox 10/02/20 08:00 112 H 22 157/104 94 L 10/02/20 07:20 108 H 10/02/20 04:00 98.4 F 112 H 24 137/109 94 L 10/02/20 00:49 98.6 F 115 H 24 143/102 99 10/02/20 00:00 98.5 F 115 H 24 133/94 93 L 10/01/20 21:30 98.6 F 45 L 24 143/102 99 10/01/20 18:11 109 H 21 147/111 100 10/01/20 16:57 117 H 24 154/103 94 L 10/01/20 16:30 98.0 F 125 H 22 142/81 78 L Intake and Output 10/01/20 10/02/20 10/02/20 22:59 06:59 14:59 Output Total 2049 Balance -2049 Output: Urine 2049 Other: Voiding Method Urinal Weight 158.757 kg 158.757 kg Mild conversational dyspnea, oriented 3. Patient's currently on 4 L nasal cannula. HEENT examination is grossly unremarkable. Mucous membranes are moist. No oral lesions. Neck supple. Full range of motion. No adenopathy thyromegaly or neck vein distention. Cardiovascular examination reveals an irregular rhythm and rate. S1-S2 normal. No S3 or S4. No discernible murmur noted. Heart sounds are distant. Heart rate about 120 bpm. Lungs reveal bilateral diffuse crackles throughout. This could relate to underlying interstitial edema, and/or interstitial fibrosis, or both. No rhonchi or wheezes appreciated. Abdomen soft bowel sounds are heard. No masses or tenderness. Abdomen is quite obese. Extremities are intact. 1+ lower extremity edema, with chronic venous stasis changes. No cyanosis or clubbing. Skin is without rash or lesion. Neurologic examination is brief but nonfocal. Results - Laboratory Findings CBC and BMP: 10/01/20 16:50 10/01/20 16:50 ABG ABG pH 7.41 (7.35-7.45) 10/01/20 17:15 ABG pCO2 46 mmHg (35-45) H 10/01/20 17:15 ABG pO2 72 mmHg (83-108) L 10/01/20 17:15 ABG O2 Saturation 94.0 % (94-97) 10/01/20 17:15 PT/INR, D-dimer PT 11.0 sec (9.0-12.0) 10/01/20 16:50 INR 1.0 (<1.2) 10/01/20 16:50 Abnormal lab findings: Abnormal Labs 10/01/20 10/01/20 10/01/20 16:50 16:50 17:15 WBC 10.9 H Plt Count 142 L Neutrophils # 8.9 H Lymphocytes # 0.9 L ABG pCO2 46 H ABG pO2 72 L ABG HCO3 29 H ABG Total CO2 30 H Glucose 120 H POC Glucose (mg/dL) 10/02/20 07:31 WBC Plt Count Neutrophils # Lymphocytes # ABG pCO2 ABG pO2 ABG HCO3 ABG Total CO2 Glucose POC Glucose (mg/dL) 191 H - Diagnostic Findings Chest x-ray: image reviewed CT scan - chest: image reviewed Assessment and Plan Assessment: Acute on chronic shortness of breath, likely multifactorial, in part related to atrial fibrillation with RVR, interstitial edema, possible interstitial fibrosis, and mild/moderate obstructive lung disease. Obstructive sleep apnea syndrome, mostly noncompliant with CPAP. History of chronic atrial fibrillation. Prior history of tobacco use, although the patient quit many years back. History of MRSA sepsis, 2018. History of gout. History of CHF. Pulmonary hypertension. Gastroesophageal reflux disease. Hyperlipidemia. Osteoarthritis. BPH. Chronic lower extremity venous stasis. Rule out Pickwickian syndrome. Plan: Plan dated 10/02/2020. The patient has been seen in my office by our nurse practitioner. The patient did have a pulmonary function test. It was only a spirometry. The FEV1 was 2.18 L, which is 65% of predicted. The FVC was 2.92 L, which is 64% of predicted. The ratio was 75. Hence, the patient does have a component of obstructive lung disease. A complete PFTs which would show the total lung capacity, and a diffusion, corrected for alveolar volume, would be useful and that it would tell us whether or not the patient has any interstitial fibrosis. Certainly his examination reveals crackles, and his computed tomography scan could be consistent with either interstitial fibrosis and/or interstitial edema. In addition, his N-terminal proBNP is elevated at 2460. The patient will need a more extensive evaluation once discharged. I will add Symbicort to his regimen. He is currently already on DuoNeb, and Solu-Medrol. We will continue to follow and make additional recommendations were necessary. Prognosis is guarded. Time with Patient: Greater than 30
--- NOTE | 2020-10-02 12:00 | P.HPIM ---
History of Present Illness H&P Date: 10/02/20 Chief Complaint: LUBNA HISTORY OF PRESENT ILLNESS This is a 74-year-old male patient of Dr. Grissom and Dr. Dominguez with past medical history of chronic diastolic heart failure, chronic hypoxic respiratory failure with home O2, COPD, persistent atrial fibrillation, chronic kidney disease, hypertension, hyperlipidemia, severe obstructive sleep apnea on BiPAP, chronic vascular cellulitis, chronic gout. Patient presented to the emergency center due to shortness of breath been going on for about 2-3 weeks. He states he has had to use oxygen around the clock for a couple weeks now. He also has shortness of breath with activity and at rest. No fever or chills. Positive cough without phlegm production. WBC 10.9, hemoglobin 14.5, platelet count 142. Sodium 140, potassium 3.8, chloride 104, CO2 26, BUN 17 and creatinine 1.05. COVID-19 not detected. Chest x-ray reveals interstitial fibrotic changes. Cardiomegaly. No obvious heart failure. Heart and lungs unchanged compared to old exam. CT angiogram of the chest revealed no evidence of pulmonary embolism. Groundglass interstitial pulmonary infiltrate slightly worse than old CT consistent with interstitial fibrosis. Pulmonary emphysema. New enlarged bronchial lymph nodes compared to old exam. No suspicious pulmonary mass. Patient to be admitted to the cardiac stepdown unit and consult in place with pulmonary medicine. REVIEW OF SYSTEMS Constitutional: No fever, no chills, no night sweats. No weight change. No weakness, fatigue or lethargy. No daytime sleepiness. EENT: No headache. No blurred vision or double vision, no loss of vision. No loss of Hearing, no ringing in the ears, no dizziness. No nasal drainage or congestion. No epistaxis. No sore throat. Lungs: Reports shortness of breath, cough, no sputum production. No wheezing. Cardiovascular: No chest pain, no lower extremity edema. No palpitations. No paroxysmal nocturnal dyspnea. No orthopnea. No lightheadedness or dizziness. No syncopal episodes. Abdominal: No abdominal pain. No nausea, vomiting. No diarrhea. No constipation. No bloody or tarry stools.. No loss of appetite. Genitourinary: No dysuria, increased frequency, urgency. No urinary retention. Musculoskeletal: No myalgias. No muscle weakness, no gait dysfunction, no frequent falls. No back pain. No neck pain. Integumentary: No wounds, no lesions. No rash or pruritus. No unusual bruising. No change in hair or nails. Neurologic: No aphasia. No facial droop. No change in mentation. No head injury. No headache. No paralysis. No paresthesia. Psychiatric: No depression. No anxiety. No mood swings. Endocrine: No abnormal blood sugars. No weight change. No excessive sweating or thirst. No cold intolerance. SOCIAL HISTORY He was a smoker of one pack per day for 10 years and quit 40 years ago. He denies any medical marijuana, marijuana or street drug use. He does drink alcohol 3-4 beers every day for 10-15 years. He is and lives at home with his . FAMILY HISTORY Dad at age 89 from stroke. Mother is alive at age 90 with dementia. Patient has 2 sisters with no major medical problems. Patient does not have any brothers. Patient has 2 adult children with no major medical problems. PHYSICAL EXAMINATION Gen: This is a morbidly obese male. He is found sitting in chair. Mild accessory muscle usage. HEENT: Head is atraumatic, normocephalic. Pupils equal, round. Sclerae is anicteric. NECK: Supple. No JVD. No lymphadenopathy. No thyromegaly. LUNGS: Clear to auscultation. No wheezes or rhonchi. No intercostal retractions. HEART: Irregular rate and rhythm. Systolic murmur. ABDOMEN: Soft. Bowel sounds are present. No masses. No tenderness. EXTREMITIES: 1+ pedal edema. No calf tenderness. NEUROLOGICAL: Patient is awake, alert and oriented x3. Cranial nerves 2 through 12 are grossly intact. ASSESSMENT AND PLAN 1. Acute on chronic hypoxic respiratory failure secondary to combination of acute on chronic diastolic heart failure, acute exacerbation of COPD, acute tracheobronchitis. Continue Lasix 40 mg IV push every 8 hours. Continue Solu- Medrol 60 mg IV every 8 hours, Symbicort twice daily, DuoNeb treatments 4 times daily. Pulmonary medicine consult appreciated. Monitor I&O and daily weights, monitor electrolytes and renal function. 20 mg twice daily 2. Persistent atrial fibrillation. Continue eliquis 5 mg twice daily, Lopressor 100 mg twice daily, Cardizem 60 mg twice daily. 3. Chronic kidney disease stage III. Monitor renal function. 4. Hypertension. Continue Lopressor, Cardizem. 5. Hyperlipidemia. Continue pravastatin 20 g at bedtime. 6. Obstructive sleep apnea. Continue CPAP. 7. Chronic vascular cellulitis, stable. 8. Chronic gout. Continue colchicine 0.6 g daily. 8. Gastroesophageal reflux disease and GI prophylaxis. Pepcid 20 g daily. 9. DVT prophylaxis. Continue eliquis. Patient will be admitted to the hospital for a minimum of 2 night stay. DISCHARGE PLAN Likely return home with homecare. PT and OT added. Impression and plan of care have been directed as dictated by the signing physician. Linda Maloney nurse practitioner acting as scribe for signing physician. Past Medical History Past Medical History: Atrial Fibrillation, Heart Failure, COPD, GERD/Reflux, Hyperlipidemia, Hypertension, Osteoarthritis (OA), Pneumonia, Prostate Disorder, Renal Disease, Sleep Apnea/CPAP/BIPAP, Vascular Disorder Additional Past Medical History / Comment(s): Acute respiratory failure 2ndary to interstitial pneumonia/sepsis/CHF, chronic lower extremity edema/discolorat ion, venous insufficiency, CHLOE uses CPap on occasion, chronic low back pain, generalized arthritis, gout bilateral feet, 2018 MRSA infection R buttock with sepsis. History of Any Multi-Drug Resistant Organisms: MRSA Date of last positivie culture/infection: 04/08/18 MDRO Source:: buttock wound Past Surgical History: Cholecystectomy, Heart Catheterization, Joint Replacement Additional Past Surgical History / Comment(s): 02/19/17 diagnostic cardiac cath, bilateral total knee arthroplasty, ventral hernia repair, colonoscopies, I&D R buttock. Past Anesthesia/Blood Transfusion Reactions: No Reported Reaction Past Psychological History: No Psychological Hx Reported Additional Psychological History / Comment(s): Pt resides with his spouse. He uses a cane/walker prn, He has a nebulizer. He drives. Smoking Status: Former smoker Past Alcohol Use History: None Reported Additional Past Alcohol Use History / Comment(s): Pt started smoking in 1962 and quit in 1977. He useed to drink 3-4 beers per day but now only drinks on h olidays. Past Drug Use History: None Reported - Past Family History Father Family Medical History: CVA/TIA Additional Family Medical History / Comment(s): Dad at age 89 from stroke. Mother Family Medical History: Dementia Additional Family Medical History / Comment(s): Mother is alive at age 90 with dementia. Sister(s) Additional Family Medical History / Comment(s): Patient has 2 sisters with no major medical problems. Patient does not have any brothers. Patient has 2 adult children with no major medical problems. Medications and Allergies Home Medications Medication Instructions Recorded Confirmed Type Potassium Chloride [Klor-Con 10] 10 meq PO HS 12/10/15 10/01/20 History Pravastatin Sodium [Pravachol] 20 mg PO HS 12/10/15 10/01/20 History allopurinoL [Zyloprim] 100 mg PO DAILY 12/10/15 10/01/20 History Colchicine [Colcrys] 0.6 mg PO DAILY 09/27/16 10/01/20 History Diltiazem Oral [Cardizem*] 60 mg PO BID 10/17/19 10/01/20 History Albuterol Sulfate [Albuterol 2 puff PO RT-Q6H PRN 11/18/19 10/01/20 History Sulfate Hfa] Budesonide-Formot 160-4.5 Mcg 2 puff INHALATION RT-BID #1 puff 12/18/19 10/01/20 Rx [Symbicort 160-4.5 Mcg Inhaler] Famotidine [Pepcid] 20 mg PO DAILY #30 tab 12/18/19 10/01/20 Rx Apixaban [Eliquis] 5 mg PO BID 10/01/20 10/01/20 History Furosemide [Lasix] 80 mg PO DAILY 10/01/20 10/01/20 History Metoprolol Tartrate [Lopressor] 100 mg PO BID 10/01/20 10/01/20 History Sildenafil [Revatio] 20 mg PO BID 10/01/20 10/01/20 History Allergies Allergy/AdvReac Type Severity Reaction Status Date / Time No Known Allergies Allergy Verified 10/01/20 18:00 Physical Exam Vitals: Vital Signs Temp Pulse Pulse Resp BP BP Pulse Ox 10/02/20 08:00 112 H 22 157/104 94 L 10/02/20 07:20 108 H 10/02/20 04:00 98.4 F 112 H 24 137/109 94 L 10/02/20 00:49 98.6 F 115 H 24 143/102 99 10/02/20 00:00 98.5 F 115 H 24 133/94 93 L 10/01/20 21:30 98.6 F 45 L 24 143/102 99 10/01/20 18:11 109 H 21 147/111 100 10/01/20 16:57 117 H 24 154/103 94 L 10/01/20 16:30 98.0 F 125 H 22 142/81 78 L Intake and Output 10/01/20 10/02/20 10/02/20 22:59 06:59 14:59 Output Total 2049 Balance -2049 Output: Urine 2049 Other: Voiding Method Urinal Weight 158.757 kg 158.757 kg Results CBC & Chem 7: 10/01/20 16:50 10/01/20 16:50 Labs: Abnormal Lab Results - Last 24 Hours (Table) 10/01/20 10/01/20 10/01/20 Range/Units 16:50 16:50 17:15 WBC 10.9 H (3.8-10.6) k/uL Plt Count 142 L (150-450) k/uL Neutrophils # 8.9 H (1.3-7.7) k/uL Lymphocytes # 0.9 L (1.0-4.8) k/uL ABG pCO2 46 H (35-45) mmHg ABG pO2 72 L (83-108) mmHg ABG HCO3 29 H (21-25) mmol/L ABG Total CO2 30 H (19-24) mmol/L Glucose 120 H (74-99) mg/dL POC Glucose (mg/dL) (75-99) mg/dL 10/02/20 Range/Units 07:31 WBC (3.8-10.6) k/uL Plt Count (150-450) k/uL Neutrophils # (1.3-7.7) k/uL Lymphocytes # (1.0-4.8) k/uL ABG pCO2 (35-45) mmHg ABG pO2 (83-108) mmHg ABG HCO3 (21-25) mmol/L ABG Total CO2 (19-24) mmol/L Glucose (74-99) mg/dL POC Glucose (mg/dL) 191 H (75-99) mg/dL Thrombosis Risk Factor Assmnt - Choose All That Apply Each Risk Factor Represents 2 Points: Age 61-74 years Thrombosis Risk Factor Assessment Total Risk Factor Score: 2 Thrombosis Risk Factor Assessment Level: Low Risk
[2020-10-02 12:19] LABS: Glucose,Whole Blood 321 mg/dL (75-99)
[2020-10-02] MEDS: INSULIN DETEMIR (LEVEMIR) 100 UNIT/ML SYR SQ SCH (15:14)
[2020-10-02 17:25] LABS: Glucose,Whole Blood 130 mg/dL (75-99)
[2020-10-02] MEDS ORDERED: SYMBICORT 160-4.5 MCG INHALER INHALATION SCH (20:00)
[2020-10-02 20:12] LABS: Glucose,Whole Blood 200 mg/dL (75-99)
[2020-10-02] MEDS: POTASSIUM CHLORIDE ER 10 MEQ TAB.ER.PRT PO SCH (20:57)
[2020-10-02] MEDS: PRAVASTATIN SODIUM 20 MG TAB PO SCH (20:59)
[2020-10-03] MEDS ORDERED: INSULIN DETEMIR (LEVEMIR) 100 UNIT/ML SYR SQ SCH (07:00)
[2020-10-03 07:11] LABS: Glucose,Whole Blood 180 mg/dL (75-99)
[2020-10-03] MEDS: SYMBICORT 160-4.5 MCG INHALER INHALATION SCH ×2 (08:32→21:17)
[2020-10-03] MEDS: IPRATROPIUM-ALBUTEROL 3 ML NEB INHALATION SCH ×4 (08:32→21:16)
[2020-10-03] MEDS: INSULIN DETEMIR (LEVEMIR) 100 UNIT/ML SYR SQ SCH (08:55)
[2020-10-03] MEDS: DILTIAZEM ORAL 60 MG TAB PO SCH ×2 (08:55→21:00)
[2020-10-03] MEDS: allopurinoL 100 MG TAB PO SCH (08:55)
[2020-10-03] MEDS: APIXABAN 5 MG TAB PO SCH ×2 (08:55→21:00)
[2020-10-03] MEDS: METOPROLOL TARTRATE 50 MG TAB PO SCH ×2 (08:55→21:01)
[2020-10-03] MEDS: COLCHICINE 0.6 MG EACH PO SCH (08:55)
[2020-10-03] MEDS: FAMOTIDINE 20 MG TAB PO SCH (08:55)
[2020-10-03] MEDS: FUROSEMIDE 10 MG/ML 4 ML VIAL IV SCH ×3 (08:56→23:48)
[2020-10-03] MEDS: methylPREDNISolone SOD SUCCI 125 MG/2 ML VIAL IV SCH ×3 (08:56→23:48)
[2020-10-03] MEDS: INSULIN ASPART (NovoLOG) 100 UNIT/ML VIAL SQ SCH ×7 (09:03→21:00)
[2020-10-03 12:17] LABS: Glucose,Whole Blood 155 mg/dL (75-99)
--- NOTE | 2020-10-03 12:44 | P.PN ---
Subjective Progress Note Date: 10/03/20 Principal diagnosis: Acute hypoxic respiratory failure 74-year-old male, who seen in the emergency department, on October 01. The patient comes into the emergency department complaining of shortness of breath. He apparently has not been feeling well for about 2 weeks or so. He apparently was found to have a saturation of 70%, when it was last checked. He does use oxygen at home, but does not use it /. More recently, because he's not been feeling well, he does use it more frequently and mostly all the time. The patient apparently has a history of COPD and heart failure. The patient smoked maybe about 16 years as so, at less than one pack a day. The patient's major issues include shortness of breath with any activity, even at rest. He denies any fever or chills. Does cough. Doesn't produce any phlegm. As x-ray and CAT scan are consistent with interstitial lung disease. He has seen our nurse practitioner in the office. CT angiogram did not reveal a pulmonary embolism. I will have to review his office notes to see whether or not the patient has had pulmonary function tests, and a high resolution computed tomography scan. He is quite obese. His medical problems include hyperlipidemia, gout, atrial fibrillation, congestive heart failure, GERD, hyperlipidemia, hypertension, osteoarthritis, sleep apnea, chronic venous insufficiency of the lower ex tremities, chronic back pain, and a MRSA infection in his buttock with sepsis in 2018. White count is 10.9, hemoglobin 14.5, hematocrit 45.1, and platelet count 142,000. Arterial blood gases on 40% show a PaO2 of 72, a pCO2 of 46, and a pH 7.41. Sodium 140, potassium 3.8, chlorides 104, CO2 26, anion gap 10, BUN 17, creatinine 1.05. His COVID test was negative. The patient is seen today 10/03/2020 in follow-up on the selective care unit. He is currently sitting up in a chair at the bedside. Awake and alert in no acute distress. Breathing a bit easier today compared to yesterday. Maint aining O2 saturations in the 90s on 2 L/m per nasal cannula. He remains on IV diuretics. Remains in a negative balance. He is continuing on Symbicort, DuoNeb inhalations, IV Solu-Medrol. Anticoagulated with Eliquis. Objective - Vital Signs Vital signs: Vital Signs Temp 98.0 F 10/03/20 03:38 Pulse 82 10/03/20 12:21 Resp 18 10/03/20 03:38 BP 134/67 10/03/20 03:38 Pulse Ox 94 L 10/03/20 03:38 Intake & Output 10/02/20 10/03/20 10/03/20 18:59 06:59 18:59 Intake Total 120 120 240 Output Total 800 1300 Balance -680 120 -1060 Weight 157.1 kg Intake: Oral 120 120 240 Output: Urine 800 1300 Other: Voiding Method Urinal # Voids 2 - Exam Alert, pleasant 74-year-old gentleman. Mild conversational dyspnea, oriented 3. Currently on 2 L nasal cannula. HEENT examination is grossly unremarkable. Mucous membranes are moist. No oral lesions. Neck supple. Full range of motion. No adenopathy thyromegaly or neck vein distention. Cardiovascular examination reveals an irregular rhythm and rate. S1-S2 normal. No S3 or S4. No discernible murmur noted. Heart sounds are distant. Heart rate about 114 bpm. Lungs reveal bilateral diffuse crackles throughout. This could relate to underlying interstitial edema, and/or interstitial fibrosis, or both. No rhonchi or wheezes appreciated. Abdomen soft bowel sounds are heard. No masses or tenderness. Abdomen is quite obese. Extremities are intact. 1+ lower extremity edema, with chronic venous stasis changes. No cyanosis or clubbing. Skin is without rash or lesion. Neurologic examination is brief but nonfocal. - Labs CBC & Chem 7: 10/01/20 16:50 10/01/20 16:50 Labs: Abnormal Lab Results - Last 24 Hours (Table) 10/02/20 10/02/20 10/03/20 Range/Units 17:23 20:10 07:09 POC Glucose (mg/dL) 130 H 200 H 180 H (75-99) mg/dL 10/03/20 Range/Units 12:14 POC Glucose (mg/dL) 155 H (75-99) mg/dL Assessment and Plan Assessment: 1 Acute on chronic hypoxic respiratory failure, likely multifactorial, in part related to atrial fibrillation with RVR, interstitial edema, possible interstiti al fibrosis, and mild/moderate obstructive lung disease. 2 Obstructive sleep apnea syndrome, mostly noncompliant with CPAP. 3 History of chronic atrial fibrillation. Anticoagulated with Eliquis 4 Prior history of tobacco use, although the patient quit many years back. 5 History of MRSA sepsis, 2018. 6 History of gout. 7 History of CHF. 8 Pulmonary hypertension. 9 Gastroesophageal reflux disease. 10 Hyperlipidemia. 11 Osteoarthritis. 12 BPH. 13 Chronic lower extremity venous stasis. 14 Rule out Pickwickian syndrome. Plan: The patient was seen and evaluated by Dr. Dwyer He is improved today compared to yesterday We will continue with the current treatment plan for now Suspect underlying pulmonary fibrosis, outpatient high-resolution CT We will continue to follow I, the cosigning physician, performed a history & physical examination of the patient. Lungs sounds with coarse crackles bilaterally. Maintaining good O2 saturations in the 90s on 2 L/m per nasal cannula. I discussed the assessment and plan of care with my nurse practitioner, Socorro Anderson. I attest to the above note as dictated by her.
--- NOTE | 2020-10-03 14:08 | P.PN ---
Subjective Progress Note Date: 10/03/20 HISTORY OF PRESENT ILLNESS This is a 74-year-old male patient of Dr. Grissom and Dr. Dominguez with past medical history of chronic diastolic heart failure, chronic hypoxic respiratory failure with home O2, COPD, persistent atrial fibrillation, chronic kidney disease, hypertension, hyperlipidemia, severe obstructive sleep apnea on BiPAP, chronic vascular cellulitis, chronic gout. Patient presented to the emergency center due to shortness of breath been going on for about 2-3 weeks. He states he has had to use oxygen around the clock for a couple weeks now. He also has shortnes s of breath with activity and at rest. No fever or chills. Positive cough without phlegm production. WBC 10.9, hemoglobin 14.5, platelet count 142. Sodium 140, potassium 3.8, chloride 104, CO2 26, BUN 17 and creatinine 1.05. COVID-19 not detected. Chest x-ray reveals interstitial fibrotic changes. Cardiomegaly. No obvious heart failure. Heart and lungs unchanged compared to old exam. CT angiogram of the chest revealed no evidence of pulmonary embolism. Groundglass interstitial pulmonary infiltrate slightly worse than old CT consistent with interstitial fibrosis. Pulmonary emphysema. New enlarged bronchial lymph nodes compared to old exam. No suspicious pulmonary mass. Patient to be admitted to the cardiac stepdown unit and consult in place with pulmonary medicine. 10/03: Patient is seen today on the cardiac stepdown unit. His respirations are much more comfortable today. He is on nasal cannula oxygen. He is requesting a small portable oxygen tank for home and case management will make arrangements. He has been afebrile, heart rate 114, blood pressure 134/67, pulse ox 94% on 2 L nasal cannula. Blood sugars running between 130s and 180. Patient is followed by pulmonary medicine and he is continued on IV Solu-Medrol 60 mg IV every 8 hours. Anticipate that we will be transitioning him to lower dose tomorrow and probable discharge on Thursday. REVIEW OF SYSTEMS Constitutional: No fever, no chills, no night sweats. No weight change. No weakness, fatigue or lethargy. No daytime sleepiness. EENT: No headache. No blurred vision or double vision, no loss of vision. No loss of Hearing, no ringing in the ears, no dizziness. No nasal drainage or congestion. No epistaxis. No sore throat. Lungs: Reports shortness of breath improved, cough, no sputum production. No wheezing. Cardiovascular: No chest pain, no lower extremity edema. No palpitations. No paroxysmal nocturnal dyspnea. No orthopnea. No lightheadedness or dizziness. No syncopal episodes. Abdominal: No abdominal pain. No nausea, vomiting. No diarrhea. No cons tipation. No bloody or tarry stools.. No loss of appetite. Genitourinary: No dysuria, increased frequency, urgency. No urinary retention. Musculoskeletal: No myalgias. No muscle weakness, no gait dysfunction, no frequent falls. No back pain. No neck pain. Integumentary: No wounds, no lesions. No rash or pruritus. No unusual bruising. No change in hair or nails. Neurologic: No aphasia. No facial droop. No change in mentation. No head injury. No headache. No paralysis. No paresthesia. Psychiatric: No depression. No anxiety. No mood swings. Endocrine: No abnormal blood sugars. No weight change. No excessive sweating or thirst. No cold intolerance. PHYSICAL EXAMINATION Gen: This is a morbidly obese male. He is found sitting in recliner. No accessory muscle usage. HEENT: Head is atraumatic, normocephalic. Pupils equal, round. Sclerae is an icteric. NECK: Supple. No JVD. No lymphadenopathy. No thyromegaly. LUNGS: Crackles bilaterally. No intercostal retractions. HEART: Irregular rate and rhythm. Systolic murmur. ABDOMEN: Soft. Bowel sounds are present. No masses. No tenderness. EXTREMITIES: 1+ pedal edema. No calf tenderness. NEUROLOGICAL: Patient is awake, alert and oriented x3. Cranial nerves 2 through 12 are grossly intact. ASSESSMENT AND PLAN 1. Acute on chronic hypoxic respiratory failure secondary to combination of acute on chronic diastolic heart failure, acute exacerbation of COPD, acute tracheobronchitis. Continue Lasix 40 mg IV push every 8 hours. Continue Solu- Medrol 60 mg IV every 8 hours, Symbicort twice daily, DuoNeb treatments 4 times daily. Pulmonary medicine consult appreciated. Monitor I&O and daily weights, monitor electrolytes and renal function. 2. Persistent atrial fibrillation. Continue eliquis 5 mg twice daily, Lopressor 100 mg twice daily, Cardizem 60 mg twice daily. 3. Chronic kidney disease stage III. Monitor renal function. 4. Hypertension. Continue Lopressor, Cardizem. 5. Hyperlipidemia. Continue pravastatin 20 g at bedtime. 6. Obstructive sleep apnea. Continue CPAP. 7. Chronic vascular cellulitis, stable. 8. Chronic gout. Continue colchicine 0.6 g daily. 8. Gastroesophageal reflux disease and GI prophylaxis. Pepcid 20 g daily. 9. DVT prophylaxis. Continue eliquis. DISCHARGE PLAN Home on or Thursday Impression and plan of care have been directed as dictated by the signing physician. Linda Maloney nurse practitioner acting as scribe for signing physician. Objective - Vital Signs Vital signs: Vital Signs Temp 98.0 F 10/03/20 03:38 Pulse 114 H 10/03/20 08:46 Resp 18 10/03/20 03:38 BP 134/67 10/03/20 03:38 Pulse Ox 94 L 10/03/20 03:38 Intake & Output 10/02/20 10/03/20 10/03/20 18:59 06:59 18:59 Intake Total 120 120 240 Output Total 800 1300 Balance -680 120 -1060 Weight 157.1 kg Intake: Oral 120 120 240 Output: Urine 800 1300 Other: Voiding Method Urinal # Voids 2 - Labs CBC & Chem 7: 10/01/20 16:50 10/01/20 16:50 Labs: Abnormal Lab Results - Last 24 Hours (Table) 10/02/20 10/02/20 10/02/20 Range/Units 12:17 17:23 20:10 POC Glucose (mg/dL) 321 H 130 H 200 H (75-99) mg/dL 10/03/20 Range/Units 07:09 POC Glucose (mg/dL) 180 H (75-99) mg/dL
[2020-10-03 17:00] LABS: Glucose,Whole Blood 152 mg/dL (75-99)
[2020-10-03 20:23] LABS: Glucose,Whole Blood 210 mg/dL (75-99)
[2020-10-03] MEDS: POTASSIUM CHLORIDE ER 10 MEQ TAB.ER.PRT PO SCH (21:01)
[2020-10-03] MEDS: PRAVASTATIN SODIUM 20 MG TAB PO SCH (21:01)
[2020-10-04 07:17] LABS: Glucose,Whole Blood 159 mg/dL (75-99)
[2020-10-04] MEDS: INSULIN ASPART (NovoLOG) 100 UNIT/ML VIAL SQ SCH ×7 (07:19→20:50)
[2020-10-04] MEDS: INSULIN DETEMIR (LEVEMIR) 100 UNIT/ML SYR SQ SCH (07:19)
[2020-10-04] MEDS: IPRATROPIUM-ALBUTEROL 3 ML NEB INHALATION SCH ×4 (08:50→19:42)
[2020-10-04] MEDS: SYMBICORT 160-4.5 MCG INHALER INHALATION SCH ×2 (08:50→19:42)
[2020-10-04 09:03] LABS: Calcium 9.6 mg/dL (8.4-10.2); Potassium 4.9 mmol/L (3.5-5.1)
[2020-10-04] MEDS: DILTIAZEM ORAL 60 MG TAB PO SCH (09:58)
[2020-10-04] MEDS: APIXABAN 5 MG TAB PO SCH ×2 (09:58→20:49)
[2020-10-04] MEDS: allopurinoL 100 MG TAB PO SCH (09:58)
[2020-10-04] MEDS: FAMOTIDINE 20 MG TAB PO SCH (09:58)
[2020-10-04] MEDS: METOPROLOL TARTRATE 50 MG TAB PO SCH ×2 (09:58→20:49)
[2020-10-04] MEDS: FUROSEMIDE 10 MG/ML 4 ML VIAL IV SCH ×3 (09:58→23:44)
[2020-10-04] MEDS: COLCHICINE 0.6 MG EACH PO SCH (09:58)
[2020-10-04] MEDS: methylPREDNISolone SOD SUCCI 125 MG/2 ML VIAL IV SCH (09:59)
[2020-10-04] MEDS ORDERED: DILTIAZEM ORAL 30 MG TAB PO STA (10:48)
[2020-10-04 12:25] LABS: Glucose,Whole Blood 128 mg/dL (75-99)
--- NOTE | 2020-10-04 12:54 | P.PN ---
Subjective Progress Note Date: 10/04/20 HISTORY OF PRESENT ILLNESS This is a 74-year-old male patient of Dr. Grissom and Dr. Dominguez with past medical history of chronic diastolic heart failure, chronic hypoxic respiratory failure with home O2, COPD, persistent atrial fibrillation, chronic kidney disease, hypertension, hyperlipidemia, severe obstructive sleep apnea on BiPAP, chronic vascular cellulitis, chronic gout. Patient presented to the emergency center due to shortness of breath been going on for about 2-3 weeks. He states he has had to use oxygen around the clock for a couple weeks now. He also has shortnes s of breath with activity and at rest. No fever or chills. Positive cough without phlegm production. WBC 10.9, hemoglobin 14.5, platelet count 142. Sodium 140, potassium 3.8, chloride 104, CO2 26, BUN 17 and creatinine 1.05. COVID-19 not detected. Chest x-ray reveals interstitial fibrotic changes. Cardiomegaly. No obvious heart failure. Heart and lungs unchanged compared to old exam. CT angiogram of the chest revealed no evidence of pulmonary embolism. Groundglass interstitial pulmonary infiltrate slightly worse than old CT consistent with interstitial fibrosis. Pulmonary emphysema. New enlarged bronchial lymph nodes compared to old exam. No suspicious pulmonary mass. Patient to be admitted to the cardiac stepdown unit and consult in place with pulmonary medicine. 10/03: Patient is seen today on the cardiac stepdown unit. His respirations are much more comfortable today. He is on nasal cannula oxygen. He is requesting a small portable oxygen tank for home and case management will make arrangements. He has been afebrile, heart rate 114, blood pressure 134/67, pulse ox 94% on 2 L nasal cannula. Blood sugars running between 130s and 180. Patient is followed by pulmonary medicine and he is continued on IV Solu-Medrol 60 mg IV every 8 hours. Anticipate that we will be transitioning him to lower dose tomorrow and probable discharge on Thursday. 10/04: Patient is seen today ambulating with physical therapy and doing well. He will not require any rehab. Noted that his heart rate went up to 120s with activity. We will increase his Cardizem to 90 mg twice daily. And plan to monitor for another 24 hours. Pulse ox 91% on 2 L nasal cannula. Afebrile, blood pressure 132/86. Repeat blood work reveals sodium 141, potassium 4.9, chloride 100, CO2 33, BUN 3090 creatinine 1.19. Blood sugars running between 128 and 210. Solu-Medrol will be decreased to 40 mg every 8 hours. Anticipate discharge home tomorrow. REVIEW OF SYSTEMS Constitutional: No fever, no chills, no night sweats. No weight change. No weakness, fatigue or lethargy. No daytime sleepiness. EENT: No headache. No blurred vision or double vision, no loss of vision. No loss of Hearing, no ringing in the ears, no dizziness. No nasal drainage or congestion. No epistaxis. No sore throat. Lungs: Reports shortness of breath improved, cough, no sputum production. No wheezing. Cardiovascular: No chest pain, no lower extremity edema. Reports palpitations. No paroxysmal nocturnal dyspnea. No orthopnea. No lightheadedness or dizziness. No syncopal episodes. Abdominal: No abdominal pain. No nausea, vomiting. No diarrhea. No constipation. No bloody or tarry stools.. No loss of appetite. Genitourinary: No dysuria, increased frequency, urgency. No urinary retention. Musculoskeletal: No myalgias. No muscle weakness, no gait dysfunction, no frequent falls. No back pain. No neck pain. Integumentary: No wounds, no lesions. No rash or pruritus. No unusual bruising. No change in hair or nails. Neurologic: No aphasia. No facial droop. No change in mentation. No head injury. No headache. No paralysis. No paresthesia. Psychiatric: No depression. No anxiety. No mood swings. Endocrine: No abnormal blood sugars. No weight change. No excessive sweating or thirst. No cold intolerance. PHYSICAL EXAMINATION Gen: This is a morbidly obese male. He is found sitting in recliner. No accessory muscle usage. HEENT: Head is atraumatic, normocephalic. Pupils equal, round. Sclerae is anicteric. NECK: Supple. No JVD. No lymphadenopathy. No thyromegaly. LUNGS: Crackles bilaterally. No intercostal retractions. HEART: Irregular rate and rhythm. Systolic murmur. Tachycardic. ABDOMEN: Soft. Bowel sounds are present. No masses. No tenderness. EXTREMITIES: 1+ pedal edema. No calf tenderness. NEUROLOGICAL: Patient is awake, alert and oriented x3. Cranial nerves 2 through 12 are grossly intact. ASSESSMENT AND PLAN 1. Acute on chronic hypoxic respiratory failure secondary to combination of acute on chronic diastolic heart failure, acute exacerbation of COPD, acute tracheobronchitis. Continue Lasix 40 mg IV push every 8 hours. Continue Solu- Medrol 60 mg IV every 8 hours, Symbicort twice daily, DuoNeb treatments 4 times daily. Pulmonary medicine consult appreciated. Monitor I&O and daily weights, monitor electrolytes and renal function. 2. Persistent atrial fibrillation. Continue eliquis 5 mg twice daily, Lopressor 100 mg twice daily, Cardizem increased to 90 mg twice daily. 3. Chronic kidney disease stage III. Monitor renal function. 4. Hypertension. Continue Lopressor, Cardizem. 5. Hyperlipidemia. Continue pravastatin 20 g at bedtime. 6. Obstructive sleep apnea. Continue CPAP. 7. Chronic vascular cellulitis, stable. 8. Chronic gout. Continue colchicine 0.6 g daily. 8. Gastroesophageal reflux disease and GI prophylaxis. Pepcid 20 g daily. 9. DVT prophylaxis. Continue eliquis. DISCHARGE PLAN Home on Thursday Impression and plan of care have been directed as dictated by the signing physician. Linda Maloney nurse practitioner acting as scribe for signing physician. Objective - Vital Signs Vital signs: Vital Signs Temp 97.9 F 10/04/20 04:00 Pulse 88 10/04/20 09:01 Resp 18 10/04/20 04:00 BP 128/79 10/04/20 04:00 Pulse Ox 94 L 10/04/20 04:00 Intake & Output 10/03/20 10/04/20 10/04/20 18:59 06:59 18:59 Intake Total 358 368 240 Output Total 2075 1700 400 Balance -1717 -1332 -160 Weight 155.8 kg Intake: IV 10 Invasive Line 1 10 Oral 358 358 240 Output: Urine 2075 1700 400 Other: Voiding Method Urinal Urinal - Labs CBC & Chem 7: 10/01/20 16:50 10/04/20 07:29 Labs: Abnormal Lab Results - Last 24 Hours (Table) 10/03/20 10/03/20 10/03/20 Range/Units 12:14 16:58 20:22 Carbon Dioxide (22-30) mmol/L BUN (9-20) mg/dL Glucose (74-99) mg/dL POC Glucose (mg/dL) 155 H 152 H 210 H (75-99) mg/dL 10/04/20 10/04/20 Range/Units 07:16 07:29 Carbon Dioxide 33 H (22-30) mmol/L BUN 39 H (9-20) mg/dL Glucose 154 H (74-99) mg/dL POC Glucose (mg/dL) 159 H (75-99) mg/dL
--- NOTE | 2020-10-04 14:37 | P.PN ---
Subjective Progress Note Date: 10/04/20 Principal diagnosis: Acute hypoxic respiratory failure 74-year-old male, who seen in the emergency department, on October 01. The patient comes into the emergency department complaining of shortness of breath. He apparently has not been feeling well for about 2 weeks or so. He apparently was found to have a saturation of 70%, when it was last checked. He does use oxygen at home, but does not use it /. More recently, because he's not been feeling well, he does use it more frequently and mostly all the time. The patient apparently has a history of COPD and heart failure. The patient smoked maybe about 16 years as so, at less than one pack a day. The patient's major issues include shortness of breath with any activity, even at rest. He denies any fever or chills. Does cough. Doesn't produce any phlegm. As x-ray and CAT scan are consistent with interstitial lung disease. He has seen our nurse practitioner in the office. CT angiogram did not reveal a pulmonary embolism. I will have to review his office notes to see whether or not the patient has had pulmonary function tests, and a high resolution computed tomography scan. He is quite obese. His medical problems include hyperlipidemia, gout, atrial fibrillation, congestive heart failure, GERD, hyperlipidemia, hypertension, osteoarthritis, sleep apnea, chronic venous insufficiency of the lower ex tremities, chronic back pain, and a MRSA infection in his buttock with sepsis in 2018. White count is 10.9, hemoglobin 14.5, hematocrit 45.1, and platelet count 142,000. Arterial blood gases on 40% show a PaO2 of 72, a pCO2 of 46, and a pH 7.41. Sodium 140, potassium 3.8, chlorides 104, CO2 26, anion gap 10, BUN 17, creatinine 1.05. His COVID test was negative. The patient is seen today 10/03/2020 in follow-up on the selective care unit. He is currently sitting up in a chair at the bedside. Awake and alert in no acute distress. Breathing a bit easier today compared to yesterday. Maint aining O2 saturations in the 90s on 2 L/m per nasal cannula. He remains on IV diuretics. Remains in a negative balance. He is continuing on Symbicort, DuoNeb inhalations, IV Solu-Medrol. Anticoagulated with Eliquis. Patient is seen today 10/04/2020 in follow-up on the selective care unit. He is currently sitting up in a chair at the bedside. Awake and alert in no acute distress. He is breathing easier today compared to yesterday. Getting closer to his baseline. Maintaining O2 saturations in the 90s on 2 L/m per nasal cannula. Afebrile. Sodium 141. Potassium 4.9. Creatinine 1.19. Remains on IV diuretics. Anticoagulated with Eliquis. Objective - Vital Signs Vital signs: Vital Signs Temp 97.9 F 10/04/20 11:26 Pulse 104 H 10/04/20 13:27 Resp 18 10/04/20 13:27 BP 132/86 10/04/20 11:26 Pulse Ox 91 L 10/04/20 11:26 Intake & Output 10/03/20 10/04/20 10/04/20 18:59 06:59 18:59 Intake Total 358 368 260 Output Total 2075 1700 700 Balance -4377 -2912 -440 Weight 155.8 kg Intake: IV 10 20 Invasive Line 1 10 20 Oral 358 358 240 Output: Urine 2075 1700 700 Other: Voiding Method Urinal Urinal Urinal - Exam Alert, pleasant 74-year-old gentleman. Mild conversational dyspnea, oriented 3. Currently on 2 L nasal cannula. HEENT examination is grossly unremarkable. Mucous membranes are moist. No oral lesions. Neck supple. Full range of motion. No adenopathy thyromegaly or neck vein distention. Cardiovascular examination reveals an irregular rhythm and rate. S1-S2 normal. No S3 or S4. No discernible murmur noted. Heart sounds are distant. Heart rate about 114 bpm. Lungs reveal bilateral diffuse crackles throughout. This could relate to underlying interstitial edema, and/or interstitial fibrosis, or both. No rhonchi or wheezes appreciated. Abdomen soft bowel sounds are heard. No masses or tenderness. Abdomen is quite obese. Extremities are intact. 1+ lower extremity edema, with chronic venous stasis changes. No cyanosis or clubbing. Skin is without rash or lesion. Neurologic examination is brief but nonfocal. - Labs CBC & Chem 7: 10/01/20 16:50 10/04/20 07:29 Labs: Abnormal Lab Results - Last 24 Hours (Table) 10/03/20 10/03/20 10/04/20 Range/Units 16:58 20:22 07:16 Carbon Dioxide (22-30) mmol/L BUN (9-20) mg/dL Glucose (74-99) mg/dL POC Glucose (mg/dL) 152 H 210 H 159 H (75-99) mg/dL 10/04/20 10/04/20 Range/Units 07:29 12:24 Carbon Dioxide 33 H (22-30) mmol/L BUN 39 H (9-20) mg/dL Glucose 154 H (74-99) mg/dL POC Glucose (mg/dL) 128 H (75-99) mg/dL Assessment and Plan Assessment: 1 Acute on chronic hypoxic respiratory failure, likely multifactorial, in part related to atrial fibrillation with RVR, interstitial edema, possible interstitial fibrosis, and mild/moderate obstructive lung disease. 2 Obstructive sleep apnea syndrome, mostly noncompliant with CPAP. 3 History of chronic atrial fibrillation. Anticoagulated with Eliquis 4 Prior history of tobacco use, although the patient quit many years back. 5 History of MRSA sepsis, 2018. 6 History of gout. 7 History of CHF. 8 Pulmonary hypertension. 9 Gastroesophageal reflux disease. 10 Hyperlipidemia. 11 Osteoarthritis. 12 BPH. 13 Chronic lower extremity venous stasis. 14 Rule out Pickwickian syndrome. Plan: The patient was seen and evaluated by Dr. Dwyer We will continue with the current treatment plan for now Probable discharge in the a.m. We will continue to follow I, the cosigning physician, performed a history & physical examination of the patient. Lungs sounds with coarse crackles bilaterally. Maintaining good O2 saturations in the 90s on 2 L/m per nasal cannula. I discussed the assessment and plan of care with my nurse practitioner, Socorro Anderson. I attest to the above note as dictated by her.
[2020-10-04 17:28] LABS: Glucose,Whole Blood 156 mg/dL (75-99)
[2020-10-04] MEDS: methylPREDNISolone SOD SUCCI 40 MG/ML 1 ML VIAL IV SCH ×2 (17:39→23:44)
[2020-10-04 20:15] LABS: Glucose,Whole Blood 209 mg/dL (75-99)
[2020-10-04] MEDS: POTASSIUM CHLORIDE ER 10 MEQ TAB.ER.PRT PO SCH (20:49)
[2020-10-04] MEDS: PRAVASTATIN SODIUM 20 MG TAB PO SCH (20:49)
[2020-10-04] MEDS: DILTIAZEM ORAL 30 MG TAB PO SCH (20:51)
[2020-10-04 21:53] VITALS: RESP 18
[2020-10-05 04:56] VITALS: TEMP 97.9
[2020-10-05] MEDS: SYMBICORT 160-4.5 MCG INHALER INHALATION SCH (06:56)
[2020-10-05] MEDS: IPRATROPIUM-ALBUTEROL 3 ML NEB INHALATION SCH ×2 (06:56→10:47)
[2020-10-05 07:07] LABS: Glucose,Whole Blood 167 mg/dL (75-99)
[2020-10-05] MEDS: INSULIN ASPART (NovoLOG) 100 UNIT/ML VIAL SQ SCH ×2 (08:00)
[2020-10-05] MEDS: METOPROLOL TARTRATE 50 MG TAB PO SCH (08:01)
[2020-10-05] MEDS: INSULIN DETEMIR (LEVEMIR) 100 UNIT/ML SYR SQ SCH (08:01)
[2020-10-05] MEDS: DILTIAZEM ORAL 30 MG TAB PO SCH (08:01)
[2020-10-05] MEDS: FAMOTIDINE 20 MG TAB PO SCH (08:01)
[2020-10-05] MEDS: FUROSEMIDE 10 MG/ML 4 ML VIAL IV SCH (08:01)
[2020-10-05] MEDS: methylPREDNISolone SOD SUCCI 40 MG/ML 1 ML VIAL IV SCH (08:02)
[2020-10-05] MEDS: APIXABAN 5 MG TAB PO SCH (08:02)
[2020-10-05] MEDS: allopurinoL 100 MG TAB PO SCH (08:02)
[2020-10-05] MEDS: COLCHICINE 0.6 MG EACH PO SCH (08:02)
--- NOTE | 2020-10-05 09:03 | P.DS ---
Providers Date of admission: 10/01/20 19:31 Expected date of discharge: 10/05/20 Attending physician: Gianluca Grissom Consults: 10/01/20 20:32 Consult Physician Routine Consulting Provider: Zhen Dwyer Consult Reason/Comments: copd Do you want consulting provider notified?: Yes Primary care physician: Gianluca Grissom [facility] Course: HISTORY OF PRESENT ILLNESS This is a 74-year-old male patient of Dr. Grissom and Dr. Dominguez with past medical history of chronic diastolic heart failure, chronic hypoxic respiratory failure with home O2, COPD, persistent atrial fibrillation, chronic kidney disease, hypertension, hyperlipidemia, severe obstructive sleep apnea on BiPAP, chronic vascular cellulitis, chronic gout. Patient presented to the emergency center due to shortness of breath been going on for about 2-3 weeks. He states he has had to use oxygen around the clock for a couple weeks now. He also has shortness of breath with activity and at rest. No fever or chills. Positive cough without phlegm production. WBC 10.9, hemoglobin 14.5, platelet count 142. Sodium 140, potassium 3.8, chloride 104, CO2 26, BUN 17 and creatinine 1.05. COVID-19 not detected. Chest x-ray reveals interstitial fibrotic changes. Cardiomegaly. No obvious heart failure. Heart and lungs unchanged compared to old exam. CT angiogram of the chest revealed no evidence of pulmonary embolism. Groundglass interstitial pulmonary infiltrate slightly worse than old CT consistent with interstitial fibrosis. Pulmonary emphysema. New enlarged bronchial lymph nodes compared to old exam. No suspicious pulmonary mass. Patient to be admitted to the cardiac stepdown unit and consult in place with pulmonary medicine. 10/03: Patient is seen today on the cardiac stepdown unit. His respirations are much more comfortable today. He is on nasal cannula oxygen. He is requesting a small portable oxygen tank for home and case management will make arrangements. He has been afebrile, heart rate 114, blood pressure 134/67, pulse ox 94% on 2 L nasal cannula. Blood sugars running between 130s and 180. Patient is followed by pulmonary medicine and he is continued on IV Solu-Medrol 60 mg IV every 8 hours. Anticipate that we will be transitioning him to lower dose tomorrow and probable discharge on Thursday. 10/04: Patient is seen today ambulating with physical therapy and doing well. He will not require any rehab. Noted that his heart rate went up to 120s with activity. We will increase his Cardizem to 90 mg twice daily. And plan to monitor for another 24 hours. Pulse ox 91% on 2 L nasal cannula. Afebrile, blood pressure 132/86. Repeat blood work reveals sodium 141, potassium 4.9, chloride 100, CO2 33, BUN 3090 creatinine 1.19. Blood sugars running between 128 and 210. Solu-Medrol will be decreased to 40 mg every 8 hours. Anticipate discharge home tomorrow. 10/05: Pulse ox is 96% on 2 L nasal cannula. Patient's been afebrile, heart rate 94, blood pressure 129/79. Patient has been ambulating and doing well. He is on oxygen at his home dose. No new complaints. Patient will be discharged home today in stable condition. ASSESSMENT AND PLAN 1. Acute on chronic hypoxic respiratory failure secondary to combination of acute on chronic diastolic heart failure, acute exacerbation of COPD, acute tracheobronchitis. 2. Persistent atrial fibrillation. 3. Chronic kidney disease stage III. 4. Hypertension. 5. Hyperlipidemia. 6. Obstructive sleep apnea. 7. Chronic vascular cellulitis, stable. 8. Chronic gout. 8. Gastroesophageal reflux disease. DISCHARGE PLAN Home Impression and plan of care have been directed as dictated by the signing physician. Linda Maloney nurse practitioner acting as scribe for signing physician. Patient Condition at Discharge: Good Plan - Discharge Summary Discharge Rx Participant: No New Discharge Prescriptions: New Diltiazem Oral [Cardizem*] 90 mg PO BID #180 tab Continue Pravastatin Sodium [Pravachol] 20 mg PO HS allopurinoL [Zyloprim] 100 mg PO DAILY Potassium Chloride [Klor-Con 10] 10 meq PO HS Colchicine [Colcrys] 0.6 mg PO DAILY Albuterol Sulfate [Albuterol Sulfate Hfa] 2 puff PO RT-Q6H PRN PRN Reason: Shortness Of Breath Famotidine [Pepcid] 20 mg PO DAILY #30 tab Budesonide-Formot 160-4.5 Mcg [Symbicort 160-4.5 Mcg Inhaler] 2 puff INHALATION RT-BID #1 puff Sildenafil [Revatio] 20 mg PO BID Apixaban [Eliquis] 5 mg PO BID Metoprolol Tartrate [Lopressor] 100 mg PO BID Furosemide [Lasix] 80 mg PO DAILY #145 tab Discontinued Diltiazem Oral [Cardizem*] 60 mg PO BID Discharge Medication List Potassium Chloride [Klor-Con 10] 10 meq PO HS 12/10/15 [History] Pravastatin Sodium [Pravachol] 20 mg PO HS 12/10/15 [History] allopurinoL [Zyloprim] 100 mg PO DAILY 12/10/15 [History] Colchicine [Colcrys] 0.6 mg PO DAILY 09/27/16 [History] Albuterol Sulfate [Albuterol Sulfate Hfa] 2 puff PO RT-Q6H PRN 11/18/19 [History] Budesonide-Formot 160-4.5 Mcg [Symbicort 160-4.5 Mcg Inhaler] 2 puff INHALATION RT-BID #1 puff 12/18/19 [Rx] Famotidine [Pepcid] 20 mg PO DAILY #30 tab 12/18/19 [Rx] Apixaban [Eliquis] 5 mg PO BID 10/01/20 [History] Metoprolol Tartrate [Lopressor] 100 mg PO BID 10/01/20 [History] Sildenafil [Revatio] 20 mg PO BID 10/01/20 [History] Diltiazem Oral [Cardizem*] 90 mg PO BID #180 tab 10/05/20 [Rx] Furosemide [Lasix] 80 mg PO DAILY #145 tab 10/05/20 [Rx] Follow up Appointment(s)/Referral(s): Gianluca Grissom MD [Primary Care Provider] - 1 Week Zhen Dwyer DO [Doctor of Osteopathic Medicine] - 2 Weeks Patient Instructions/Handouts: Heart Failure (DC), COPD (Chronic Obstructive Pulmonary Disease) (DC) Discharge Disposition: HOME SELF-CARE
[2020-10-05 09:52] VITALS: BP 136/72
[2020-10-05 10:58] VITALS: PULSE 100
== END 2020-10-05 11:58 | disposition home or self-care (01) | DRG 291 ==
LOC: EC 16:25 → 3SCARD 19:31
PROVIDERS: ADMIT Internal Medicine Geriatric Medicine; ATTEND Internal Medicine Geriatric Medicine
PROC: 5A09457 Assistance with Respiratory Ventilation, 24-96 Consecutive Hours, Continuous Positive Airway Pressure (ICD-10-PCS; principal; 2020-10-01)
PROC: 5A09457 Assistance with Respiratory Ventilation, 24-96 Consecutive Hours, Continuous Positive Airway Pressure (ICD-10-PCS; 2020-10-03)
DX: I13.0 Hypertensive heart and chronic kidney disease with heart failure and stage 1 through stage 4 chronic kidney disease, or unspecified chronic kidney disease (principal); I50.33 Acute on chronic diastolic (congestive) heart failure; J96.21 Acute and chronic respiratory failure with hypoxia; I48.19 Other persistent atrial fibrillation; L03.90 Cellulitis, unspecified; Z68.42 Body mass index [BMI] 45.0-49.9, adult; I27.20 Pulmonary hypertension, unspecified; J43.9 Emphysema, unspecified; J84.10 Pulmonary fibrosis, unspecified; E66.01 Morbid (severe) obesity due to excess calories; N18.30 Chronic kidney disease, stage 3 unspecified; J20.9 Acute bronchitis, unspecified; Z20.822 Contact with and (suspected) exposure to COVID-19; E78.5 Hyperlipidemia, unspecified; G47.33 Obstructive sleep apnea (adult) (pediatric); M1A.9XX0 Chronic gout, unspecified, without tophus (tophi); K21.9 Gastro-esophageal reflux disease without esophagitis; M13.0 Polyarthritis, unspecified; N40.0 Benign prostatic hyperplasia without lower urinary tract symptoms; G89.29 Other chronic pain; M54.5 Low back pain; I87.8 Other specified disorders of veins; R59.9 Enlarged lymph nodes, unspecified; I87.2 Venous insufficiency (chronic) (peripheral); Z91.19 Patient's noncompliance with other medical treatment and regimen; Z99.81 Dependence on supplemental oxygen; Z79.01 Long term (current) use of anticoagulants; Z79.51 Long term (current) use of inhaled steroids; Z79.899 Other long term (current) drug therapy; Z87.891 Personal history of nicotine dependence; Z87.01 Personal history of pneumonia (recurrent); Z86.19 Personal history of other infectious and parasitic diseases; Z86.14 Personal history of Methicillin resistant Staphylococcus aureus infection; Z90.49 Acquired absence of other specified parts of digestive tract; Z96.653 Presence of artificial knee joint, bilateral; Z87.19 Personal history of other diseases of the digestive system; Z87.2 Personal history of diseases of the skin and subcutaneous tissue; Z98.890 Other specified postprocedural states; Z82.3 Family history of stroke; Z81.8 Family history of other mental and behavioral disorders
CPT/HCPCS: 36415; 36600; 71045; 71275; 80048; 80053; 82805; 83735; 83880; 84484; 85025; 85610; 85730; 87635; 93005; 94640; 94660; 94760; 96365; 96375; 99285

== ENCOUNTER 2020-12-12 12:07 | Emergency (ER) | payer MEDICARE, BC ==
[2020-12-12] MEDS ORDERED: LIDOCAINE 1%-EPI 1:100,000 20 ML VIAL SQ STA (12:46)
[2020-12-12] MEDS ORDERED: DIPH,PERTUS(ACELL)TETVAC-LF 0.5 ML VIAL IM ONE (12:46)
[2020-12-12] MEDS ORDERED: GELATIN SPONGE,ABSORB (SMALL) 1 EACH SPONGE TOPICAL STA (13:44)
--- NOTE | 2020-12-12 14:27 | ED ---
General Adult HPI - General Chief complaint: Wound/Laceration Stated complaint: leg lac Time Seen by Provider: 12/12/20 12:20 Source: patient, RN notes reviewed Mode of arrival: ambulatory Limitations: no limitations - History of Present Illness Initial comments: 75-year-old male presents to the emergency room for a chief of laceration of the right lower leg. Patient has a history of atrial fibrillation and does take eliquis. He also has chronic lower extremity edema, venous insufficiency. Patient states that over 48 hours ago he hit his leg against something on the trailer and this caused a tear. States that he has not been able to get it to stop bleeding so presented to the emergency room. Patient is up-to-date on tetanus.Patient has no other complaints at this time including shortness of breath, chest pain, abdominal pain, nausea or vomiting, headache, or visual changes. - Related Data Home Medications Medication Instructions Recorded Confirmed Potassium Chloride [Klor-Con 10] 10 meq PO HS 12/10/15 10/01/20 Pravastatin Sodium [Pravachol] 20 mg PO HS 12/10/15 10/01/20 allopurinoL [Zyloprim] 100 mg PO DAILY 12/10/15 10/01/20 Colchicine [Colcrys] 0.6 mg PO DAILY 09/27/16 10/01/20 Albuterol Sulfate [Albuterol 2 puff PO RT-Q6H PRN 11/18/19 10/01/20 Sulfate Hfa] Apixaban [Eliquis] 5 mg PO BID 10/01/20 10/01/20 Metoprolol Tartrate [Lopressor] 100 mg PO BID 10/01/20 10/01/20 Sildenafil [Revatio] 20 mg PO BID 10/01/20 10/01/20 Previous Rx's Medication Instructions Recorded Budesonide-Formot 160-4.5 Mcg 2 puff INHALATION RT-BID #1 puff 12/18/19 [Symbicort 160-4.5 Mcg Inhaler] Famotidine [Pepcid] 20 mg PO DAILY #30 tab 12/18/19 Diltiazem Oral [Cardizem*] 90 mg PO BID #180 tab 10/05/20 Furosemide [Lasix] 80 mg PO DAILY #145 tab 10/05/20 Cephalexin [Keflex] 500 mg PO Q6HR 5 Days #20 cap 12/12/20 Allergies Allergy/AdvReac Type Severity Reaction Status Date / Time No Known Allergies Allergy Verified 12/12/20 12:14 Review of Systems ROS Statement: Those systems with pertinent positive or pertinent negative responses have been documented in the HPI. ROS Other: All systems not noted in ROS Statement are negative. Past Medical History Past Medical History: Atrial Fibrillation, Heart Failure, COPD, GERD/Reflux, Hyperlipidemia, Hypertension, Osteoarthritis (OA), Pneumonia, Prostate Disorder, Renal Disease, Sleep Apnea/CPAP/BIPAP, Vascular Disorder Additional Past Medical History / Comment(s): Acute respiratory failure 2ndary to interstitial pneumonia/sepsis/CHF, chronic lower extremity edema/discoloration, venous insufficiency, CHLOE uses CPap on occasion, chronic low back pain, generalized arthritis, gout bilateral feet, 2018 MRSA infection R buttock with sepsis. History of Any Multi-Drug Resistant Organisms: MRSA Date of last positivie culture/infection: 04/08/18 MDRO Source:: buttock wound Past Surgical History: Cholecystectomy, Heart Catheterization, Joint Replacement Additional Past Surgical History / Comment(s): 02/19/17 diagnostic cardiac cath, bilateral total knee arthroplasty, ventral hernia repair, colonoscopies, I&D R buttock. Past Anesthesia/Blood Transfusion Reactions: No Reported Reaction Past Psychological History: No Psychological Hx Reported Smoking Status: Former smoker Past Alcohol Use History: None Reported Past Drug Use History: None Reported - Past Family History Father Family Medical History: CVA/TIA Additional Family Medical History / Comment(s): Dad at age 89 from stroke. Mother Family Medical History: Dementia Additional Family Medical History / Comment(s): Mother is alive at age 90 with dementia. Sister(s) Additional Family Medical History / Comment(s): Patient has 2 sisters with no m ajor medical problems. Patient does not have any brothers. Patient has 2 adult children with no major medical problems. General Exam Limitations: no limitations General appearance: alert, in no apparent distress Head exam: Present: atraumatic, normocephalic, normal inspection Eye exam: Present: normal appearance, PERRL, EOMI. Absent: scleral icterus, conjunctival injection, periorbital swelling ENT exam: Present: normal exam, mucous membranes moist Neck exam: Present: normal inspection, full ROM. Absent: tenderness, meningismus, lymphadenopathy Respiratory exam: Present: normal lung sounds bilaterally. Absent: respiratory distress, wheezes, rales, rhonchi, stridor Cardiovascular Exam: Present: regular rate, normal rhythm, normal heart sounds. Absent: systolic murmur, diastolic murmur, rubs, gallop, clicks Extremities exam: Present: full ROM (Full range of motion of the right lower extremity), normal capillary refill (Capillary refill less than 2 seconds right lower extremity), other (Patient does have a 3 cm skin tear noted to the anterior lateral right lower leg. There is small area of bleeding noted in the superior aspect of the wound. No erythema or evidence of infection.). Absent: joint swelling Course Vital Signs 12/12/20 12:14 Temperature 98.1 F Pulse Rate 63 Respiratory 16 Rate Blood Pressure 116/71 O2 Sat by Pulse 97 Oximetry Procedures - Laceration Laceration #1 Consent Obtained: verbal consent Indication: laceration Site: lower extremity Size (cm): 4 Description: flap Anesthetic Used: lidocaine 1%, with epi Anesthesia Technique: local infiltration Amount (mls): 5 Pre-repair: wound explored, irrigated extensively Type of Sutures: vicryl Size of Sutures: 5-0 (3) Medical Decision Making - Medical Decision Making I did attempt 3 simple interrupted absorbable sutures however this was not able to stop the bleeding. Lidocaine with epi was injected and Gelfoam was applied with pressure. Bleeding did cease. Pressure gauze was wrapped. Neurovascular status intact in the right lower leg. Patient will be started on Keflex given wound is not open for the past couple days. He will follow up with primary care. I did discuss that he may require wound care. Patient will monitor for any worsening symptoms or return as needed. Disposition Clinical Impression: Skin tear Disposition: HOME SELF-CARE Condition: Good Instructions (If sedation given, give patient instructions): Skin Tear (ED) Additional Instructions: Let Steri-Strips and Gelfoam fall off on their own. Follow up with primary care. Take antibiotic as directed. Return for any worsening symptoms. Prescriptions: Cephalexin [Keflex] 500 mg PO Q6HR 5 Days #20 cap Is patient prescribed a controlled substance at d/c from ED?: No Referrals: Gianluca Grissom MD [Primary Care Provider] - 1-2 days Time of Disposition: 14:26
[2020-12-12 14:33] VITALS: BP 122/71; PULSE 71; RESP 17; TEMP 98.3
== END 2020-12-12 14:33 | disposition home or self-care (01) ==
LOC: EC 12:07
DX: S86.921A Laceration of unspecified muscle(s) and tendon(s) at lower leg level, right leg, initial encounter (principal); I11.0 Hypertensive heart disease with heart failure; I50.9 Heart failure, unspecified; I48.91 Unspecified atrial fibrillation; J44.9 Chronic obstructive pulmonary disease, unspecified; K21.9 Gastro-esophageal reflux disease without esophagitis; E78.5 Hyperlipidemia, unspecified; M19.90 Unspecified osteoarthritis, unspecified site; G47.33 Obstructive sleep apnea (adult) (pediatric); Z87.891 Personal history of nicotine dependence; W26.8XXA Contact with other sharp object(s), not elsewhere classified, initial encounter
CPT/HCPCS: 12002; 90471; 90715; 99282

== ENCOUNTER 2021-10-09 14:45 | Inpatient (IN) | payer MEDICARE, BC ==
--- NOTE | 2021-10-09 15:20 | ED ---
General Adult HPI - General Chief complaint: Shortness of Breath Stated complaint: Shortness of Breath, Vomiting Time Seen by Provider: 10/09/21 14:50 Source: patient, family, RN notes reviewed, old records reviewed Mode of arrival: wheelchair - History of Present Illness Initial comments: This is a 75-year-old male with past medical history significant for COPD and congestive heart.. Patient states the last 2-3 days he's been having difficulty breathing is getting progressively worse per patient states coughing up quite a bit of thick sputum. Patient denies any fever chills. Patient denies any chest pain or palpitations. Patient states difficult breathing shows getting worse per patient denies any swelling to the legs or any calf tenderness. Patient denies any lightheadedness or dizziness. Patient denies any abdominal pain patient denies nausea vomiting diarrhea. - Related Data Home Medications Medication Instructions Recorded Confirmed Potassium Chloride [Klor-Con 10 ER] 10 meq PO HS 12/10/15 09/04/21 Pravastatin Sodium [Pravachol] 20 mg PO HS 12/10/15 09/04/21 allopurinoL [Zyloprim] 100 mg PO BID 12/10/15 09/04/21 Colchicine [Colcrys] 0.6 mg PO BID 09/27/16 09/04/21 Albuterol Sulfate [Albuterol 2 puff INHALATION RT-QID PRN 11/18/19 09/04/21 Sulfate Hfa] Apixaban [Eliquis] 5 mg PO BID 10/01/20 09/04/21 Metoprolol Tartrate [Lopressor] 150 mg PO BID 10/01/20 09/04/21 Sildenafil [Revatio] 20 mg PO TID 10/01/20 09/04/21 Furosemide [Lasix] 40 mg PO HS 09/04/21 09/04/21 Ipratropium Nebulized [Atrovent 0.5 mg INHALATION RT-TID 09/04/21 09/04/21 Nebulized 0.2 MG/ML] dilTIAZem HCL 90 mg PO BID 09/04/21 09/04/21 Previous Rx's Medication Instructions Recorded Budesonide-Formot 160-4.5 Mcg 2 puff INHALATION RT-BID #1 puff 12/18/19 [Symbicort 160-4.5 Mcg Inhaler] Famotidine [Pepcid] 20 mg PO DAILY #30 tab 12/18/19 Furosemide [Lasix] 80 mg PO DAILY #145 tab 10/05/20 Levofloxacin [Levaquin] 500 mg PO Q24H #3 tab 09/07/21 guaiFENesin [Mucinex] 1,200 mg PO BID #30 tab 09/07/21 predniSONE [Deltasone] 40 mg PO DAILY #10 tab 09/07/21 Allergies Allergy/AdvReac Type Severity Reaction Status Date / Time No Known Allergies Allergy Verified 10/09/21 14:53 Review of Systems ROS Statement: Those systems with pertinent positive or pertinent negative responses have been documented in the HPI. ROS Other: All systems not noted in ROS Statement are negative. Past Medical History Past Medical History: Atrial Fibrillation, Heart Failure, COPD, GERD/Reflux, Hyperlipidemia, Hypertension, Osteoarthritis (OA), Pneumonia, Prostate Disorder, Renal Disease, Sleep Apnea/CPAP/BIPAP, Vascular Disorder Additional Past Medical History / Comment(s): Acute respiratory failure 2ndary to interstitial pneumonia/sepsis/CHF, chronic lower extremity edema/discoloration, venous insufficiency, CHLOE uses CPap on occasion, chronic low back pain, generalized arthritis, gout bilateral feet, 2018 MRSA infection R buttock with sepsis. History of Any Multi-Drug Resistant Organisms: MRSA Date of last positivie culture/infection: 04/08/18 MDRO Source:: buttock wound Past Surgical History: Cholecystectomy, Heart Catheterization, Joint Replacement Additional Past Surgical History / Comment(s): 02/19/17 diagnostic cardiac cath, bilateral total knee arthroplasty, ventral hernia repair, colonoscopies, I&D R buttock. Past Anesthesia/Blood Transfusion Reactions: No Reported Reaction Past Psychological History: No Psychological Hx Reported Smoking Status: Former smoker Past Alcohol Use History: None Reported Past Drug Use History: None Reported - Past Family History Father Family Medical History: CVA/TIA Additional Family Medical History / Comment(s): Dad at age 89 from stroke. Mother Family Medical History: Dementia Additional Family Medical History / Comment(s): Mother is alive at age 90 with dementia. Sister(s) Additional Family Medical History / Comment(s): Patient has 2 sisters with no major medical problems. Patient does not have any brothers. Patient has 2 ad ult children with no major medical problems. General Exam - General Exam Comments Initial Comments: GENERAL: Patient is well-developed and well-nourished. Patient is nontoxic and well- hydrated and is in moderate distress. ENT: Neck is soft and supple. No significant lymphadenopathy is noted. Oropharynx is clear. Moist mucous membranes. Neck has full range of motion without eliciting any pain. EYES: The sclera were anicteric and conjunctiva were pink and moist. Extraocular movements were intact and pupils were equal round and reactive to light. Eyelids were unremarkable. PULMONARY: Patient has diminished breath sounds bilateral bases and also has crackles bilateral CARDIOVASCULAR: There is a regular rate and rhythm without any murmurs gallops or rubs. ABDOMEN: Soft and nontender with normal bowel sounds. SKIN: Skin is clear with no lesions or rashes and otherwise unremarkable. NEUROLOGIC: Patient is alert and oriented x3. Cranial nerves II through XII are grossly intact. Motor and sensory are also intact. Normal speech, volume and content. Symmetrical smile. MUSCULOSKELETAL: Normal extremities with adequate strength and full range of motion. LYMPHATICS: No significant lymphadenopathy is noted PSYCHIATRIC: Normal psychiatric evaluation. Course Vital Signs 10/09/21 14:48 Temperature 98.6 F Pulse Rate 63 Respiratory 24 Rate Blood Pressure 110/60 O2 Sat by Pulse 77 L Oximetry Medical Decision Making - Medical Decision Making EKG shows atrial fibrillation with occasional PVC at 77 bpm QRS is under 58 QT interval 467 QTC is 499. Chest x-ray showed pulmonary edema. Started the patient Lasix. Patient's potassium was low I gave the patient oral and IV potassium. I spoke with some physicians agreed to admit the patient admitted the patient wrote admitting orders. Patient remained on BiPAP his whole time in the emergency department. - Lab Data Result diagrams: 10/09/21 15:09 10/09/21 15:09 Lab Results 10/09/21 10/09/21 10/09/21 Range/Units 15:09 15:09 15:09 WBC 10.1 (3.8-10.6) k/uL RBC 4.98 (4.30-5.90) m/uL Hgb 14.3 (13.0-17.5) gm/dL Hct 43.8 (39.0-53.0) % MCV 87.9 (80.0-100.0) fL MCH 28.7 (25.0-35.0) pg MCHC 32.6 (31.0-37.0) g/dL RDW 15.7 H (11.5-15.5) % Plt Count 134 L (150-450) k/uL MPV 7.1 Neutrophils % 76 % Lymphocytes % 12 % Monocytes % 8 % Eosinophils % 1 % Basophils % 1 % Neutrophils # 7.6 (1.3-7.7) k/uL Lymphocytes # 1.2 (1.0-4.8) k/uL Monocytes # 0.8 (0-1.0) k/uL Eosinophils # 0.1 (0-0.7) k/uL Basophils # 0.1 (0-0.2) k/uL PT 12.2 H (9.0-12.0) sec INR 1.1 (<1.2) APTT 30.3 H (22.0-30.0) sec D-Dimer <0.17 (<0.60) mg/L FEU Sodium 132 L (137-145) mmol/L Potassium 2.4 L* (3.5-5.1) mmol/L Chloride 81 L (98-107) mmol/L Carbon Dioxide 40 H (22-30) mmol/L Anion Gap 11 mmol/L BUN 36 H (9-20) mg/dL Creatinine 1.70 H (0.66-1.25) mg/dL Est GFR (CKD-EPI)AfAm 46 (>60 ml/min/1.73 sqM) Est GFR (CKD-EPI)NonAf 39 (>60 ml/min/1.73 sqM) Glucose 148 H (74-99) mg/dL Plasma Lactic Acid Virgilio (0.7-2.0) mmol/L Calcium 9.0 (8.4-10.2) mg/dL Total Bilirubin 1.2 (0.2-1.3) mg/dL AST 57 (17-59) U/L ALT 36 (4-49) U/L Alkaline Phosphatase 118 (38-126) U/L Troponin I (0.000-0.034) ng/mL NT-Pro-B Natriuret Pep pg/mL Total Protein 6.7 (6.3-8.2) g/dL Albumin 3.8 (3.5-5.0) g/dL 03/23/22 03/23/22 03/23/22 Range/Units 15:09 15:09 15:09 WBC (3.8-10.6) k/uL RBC (4.30-5.90) m/uL Hgb (13.0-17.5) gm/dL Hct (39.0-53.0) % MCV (80.0-100.0) fL MCH (25.0-35.0) pg MCHC (31.0-37.0) g/dL RDW (11.5-15.5) % Plt Count (150-450) k/uL MPV Neutrophils % % Lymphocytes % % Monocytes % % Eosinophils % % Basophils % % Neutrophils # (1.3-7.7) k/uL Lymphocytes # (1.0-4.8) k/uL Monocytes # (0-1.0) k/uL Eosinophils # (0-0.7) k/uL Basophils # (0-0.2) k/uL PT (9.0-12.0) sec INR (<1.2) APTT (22.0-30.0) sec D-Dimer (<0.60) mg/L FEU Sodium (137-145) mmol/L Potassium (3.5-5.1) mmol/L Chloride (98-107) mmol/L Carbon Dioxide (22-30) mmol/L Anion Gap mmol/L BUN (9-20) mg/dL Creatinine (0.66-1.25) mg/dL Est GFR (CKD-EPI)AfAm (>60 ml/min/1.73 sqM) Est GFR (CKD-EPI)NonAf (>60 ml/min/1.73 sqM) Glucose (74-99) mg/dL Plasma Lactic Acid Virgilio 2.1 H* (0.7-2.0) mmol/L Calcium (8.4-10.2) mg/dL Total Bilirubin (0.2-1.3) mg/dL AST (17-59) U/L ALT (4-49) U/L Alkaline Phosphatase (38-126) U/L Troponin I 0.017 (0.000-0.034) ng/mL NT-Pro-B Natriuret Pep 4520 pg/mL Total Protein (6.3-8.2) g/dL Albumin (3.5-5.0) g/dL Critical Care Time Critical Care Time: Yes Total Critical Care Time: 35 Disposition Clinical Impression: Acute pulmonary edema Disposition: ADMITTED IP TO THIS HOSP Referrals: Gianluca Grissom MD [Primary Care Provider] - 1-2 days Time of Disposition: 16:53
[2021-10-09 15:34] LABS: Basophils # (A) 0.1 k/uL (0-0.2); Basophils % (A) 1 %; Eosinophils # (A) 0.1 k/uL (0-0.7); Eosinophils % (A) 1 %; HCT 43.8 % (39.0-53.0); HGB 14.3 gm/dL (13.0-17.5); Lymphocytes # (A) 1.2 k/uL (1.0-4.8); Lymphocytes % (A) 12 %; MCH 28.7 pg (25.0-35.0); MCHC 32.6 g/dL (31.0-37.0); MCV 87.9 fL (80.0-100.0); Mean Platelet Volume 7.1; Monocytes # (A) 0.8 k/uL (0-1.0); Monocytes % (A) 8 %; Neutrophils # (A) 7.6 k/uL (1.3-7.7); Neutrophils % (A) 76 %; Platelet Count 134 k/uL (150-450); RBC 4.98 m/uL (4.30-5.90); RDW 15.7 % (11.5-15.5); WBC 10.1 k/uL (3.8-10.6)
--- NOTE | 2021-10-09 15:37 | XR ---
EXAMINATION TYPE: XR chest 1V portable DATE OF EXAM: 10/09/2021 COMPARISON: 09/04/2021, 10/03/2021 HISTORY: Shortness of breath TECHNIQUE: Single frontal view of the chest is obtained. FINDINGS: The heart is enlarged and there is atherosclerotic changes aorta with diffuse interstitial pattern. Subsegmental basilar infiltrate are seen with tiny pleural effusion suspected. Findings britney ear progressed from prior exam. No sizable pneumothorax. Arthropathy of the shoulder. Retrocardiac ca lcification of the left is nonspecific could be related to annular calcification. IMPRESSION: 1. Suspect COPD with interstitial pneumonitis or venous congestion and basilar infiltrate with small effusion. Correlate clinically.
[2021-10-09 15:42] LABS: Albumin 3.8 g/dL (3.5-5.0); Total Bilirubin 1.2 mg/dL (0.2-1.3); Total Protein 6.7 g/dL (6.3-8.2)
[2021-10-09 15:50] LABS: INR 1.1 (<1.2); Partial Thromboplastin Time 30.3 sec (22.0-30.0); Prothrombin Time 12.2 sec (9.0-12.0)
[2021-10-09 15:58] LABS: Potassium 2.4 mmol/L (3.5-5.1)
[2021-10-09] MEDS ORDERED: POTASSIUM CHLORIDE 20 MEQ in WATER FOR INJECTION 1 100ML.BAG IVPB STA (16:04)
[2021-10-09] MEDS ORDERED: POTASSIUM CHLORIDE ER 20 MEQ TAB.ER PO STA ×2 (16:04→17:23)
[2021-10-09] MEDS ORDERED: FUROSEMIDE 10 MG/ML 10 ML VIAL IV STA (16:15)
[2021-10-09] MEDS ORDERED: IPRATROPIUM-ALBUTEROL 3 ML NEB INHALATION PRN (17:26)
--- NOTE | 2021-10-09 17:43 | P.HPIM ---
History of Present Illness H&P Date: 10/09/21 Chief Complaint: shortness of breath Patient is a 75-year-old male with a past medical history of chronic diastolic heart failure, chronic hypoxic respiratory failure with home O2 at 2 L, COPD, persistent atrial fibrillation, chronic kidney disease stage III, hypertension, hyperlipidemia, severe obstructive sleep apnea on BiPAP, chronic gout, lymphedema who presents to the ED with shortness of breath. Patient was admitted about one month ago for similar symptoms. He was treated for CHF and COPD exacerbation. Patient states that after he was discharged he was doing w ell for 3-4 days but then gradually started to get worse. Patient states that he sleeps in a chair. He states that he cannot lay down flat. Patient states that he has been compliant with his medications and also his diet. His at bedside confirmed that patient has been compliant with his diet. Patient also reports that he is coughing up large yellow brownish sputum. Patient denies any fever or chills. Patient also denies any chest pain or palpitation. In the ED patient was 77% on 6 L nasal cannula. He was placed on BiPAP. Patient was also given 1 dose of IV Lasix 80 mg. Patient states that his breathing is getting better since he came in. Patient's chest x-ray consistent with volume overload. Patient's creatinine 1.7, potassium 2.4, lactic acid 2.1. Review of Systems 10 ROS reviewed and are negative except as noted in HPI Past Medical History Past Medical History: Atrial Fibrillation, Heart Failure, COPD, GERD/Reflux, Hyperlipidemia, Hypertension, Osteoarthritis (OA), Pneumonia, Prostate Disorder, Renal Disease, Sleep Apnea/CPAP/BIPAP, Vascular Disorder Additional Past Medical History / Comment(s): Acute respiratory failure 2ndary to interstitial pneumonia/sepsis/CHF, chronic lower extremity edema/discoloration, venous insufficiency, CHLOE uses CPap on occasion, chronic low back pain, generalized arthritis, gout bilateral feet, 2018 MRSA infection R buttock with sepsis. History of Any Multi-Drug Resistant Organisms: MRSA Date of last positivie culture/infection: 04/08/18 MDRO Source:: buttock wound Past Surgical History: Cholecystectomy, Heart Catheterization, Joint Replacement Additional Past Surgical History / Comment(s): 02/19/17 diagnostic cardiac cath, bilateral total knee arthroplasty, ventral hernia repair, colonoscopies, I&D R buttock. Past Anesthesia/Blood Transfusion Reactions: No Reported Reaction Past Psychological History: No Psychological Hx Reported Smoking Status: Former smoker Past Alcohol Use History: None Reported Past Drug Use History: None Reported - Past Family History Father Family Medical History: CVA/TIA Additional Family Medical History / Comment(s): Dad at age 89 from stroke. Mother Family Medical History: Dementia Additional Family Medical History / Comment(s): Mother is alive at age 90 with dementia. Sister(s) Additional Family Medical History / Comment(s): Patient has 2 sisters with no major medical problems. Patient does not have any brothers. Patient has 2 adult children with no major medical problems. Medications and Allergies Home Medications Medication Instructions Recorded Confirmed Type Potassium Chloride [Klor-Con 10 ER] 10 meq PO W/SUPPER 12/10/15 10/09/21 History Pravastatin Sodium [Pravachol] 20 mg PO HS 12/10/15 10/09/21 History allopurinoL [Zyloprim] 100 mg PO HS 12/10/15 10/09/21 History Colchicine [Colcrys] 0.6 mg PO DAILY 09/27/16 10/09/21 History Albuterol Sulfate [Albuterol 2 puff INHALATION RT-DAILY 11/18/19 10/09/21 History Sulfate Hfa] Budesonide-Formot 160-4.5 Mcg 2 puff INHALATION RT-BID #1 puff 12/18/19 10/09/21 Rx [Symbicort 160-4.5 Mcg Inhaler] Famotidine [Pepcid] 20 mg PO DAILY #30 tab 12/18/19 10/09/21 Rx Apixaban [Eliquis] 5 mg PO BID 10/01/20 10/09/21 History Metoprolol Tartrate [Lopressor] 150 mg PO BID 10/01/20 10/09/21 History Sildenafil [Revatio] 20 mg PO TID 10/01/20 10/09/21 History Furosemide [Lasix] 80 mg PO DAILY #145 tab 10/05/20 10/09/21 Rx Furosemide [Lasix] 40 mg PO HS 09/04/21 10/09/21 History dilTIAZem HCL 90 mg PO BID 09/04/21 10/09/21 History Gabapentin [Neurontin] 100 mg PO DAILY 10/09/21 10/09/21 History Ipratropium-Albuterol Nebulize 3 ml INHALATION RT-TID 10/09/21 10/09/21 History [Duoneb 0.5 mg-3 mg/3 ml Soln] metOLazone 2.5 mg PO MOWEFR 10/09/21 10/09/21 History Allergies Allergy/AdvReac Type Severity Reaction Status Date / Time No Known Allergies Allergy Verified 10/09/21 17:04 Physical Exam Osteopathic Statement: *. No significant issues noted on an osteopathic structural exam other than those noted in the History and Physical/Consult. Vitals: Vital Signs Temp Pulse Resp BP Pulse Ox 10/09/21 17:27 79 20 99/82 97 10/09/21 14:48 98.6 F 63 24 110/60 77 L Intake and Output 10/09/21 10/09/21 10/09/21 06:59 14:59 22:59 Other: Weight 141.521 kg General: [Alert and oriented, well nourished, mild respiratory distress, appears chronically debilitated]. Eye: [PERRL, EOMI, normal conjunctiva]. HENT: [Normocephalic, clear tympanic membranes, normal hearing, moist oral mucosa, no scleral icterus, no sinus tenderness]. Neck: [Supple, non-tender, no carotid bruits, no JVD, no lymphadenopathy]. Lungs: [Diminished breath sounds bilaterally]. Heart: [Normal rate, regular rhythm, no murmur, gallop or + 1 pitting edema in bilateral lower extremities]. Abdomen: [Soft, non-tender, non-distended, normal bowel sounds, no masses, obese]. Musculoskeletal: [Normal range of motion and strength, no tenderness or swelling]. Skin: [Skin is warm, dry and pink, no rashes or lesions]. Neurologic: [Awake, alert, and oriented X3, CN II-XII intact]. Psychiatric: [Cooperative, appropriate mood and affect]. Results CBC & Chem 7: 10/09/21 15:09 10/09/21 15:09 Labs: Abnormal Lab Results - Last 24 Hours (Table) 10/09/21 10/09/21 10/09/21 Range/Units 15:09 15:09 15:09 RDW 15.7 H (11.5-15.5) % Plt Count 134 L (150-450) k/uL PT 12.2 H (9.0-12.0) sec APTT 30.3 H (22.0-30.0) sec Sodium 132 L (137-145) mmol/L Potassium 2.4 L* (3.5-5.1) mmol/L Chloride 81 L (98-107) mmol/L Carbon Dioxide 40 H (22-30) mmol/L BUN 36 H (9-20) mg/dL Creatinine 1.70 H (0.66-1.25) mg/dL Glucose 148 H (74-99) mg/dL Plasma Lactic Acid Virgilio (0.7-2.0) mmol/L 10/09/21 Range/Units 15:09 RDW (11.5-15.5) % Plt Count (150-450) k/uL PT (9.0-12.0) sec APTT (22.0-30.0) sec Sodium (137-145) mmol/L Potassium (3.5-5.1) mmol/L Chloride (98-107) mmol/L Carbon Dioxide (22-30) mmol/L BUN (9-20) mg/dL Creatinine (0.66-1.25) mg/dL Glucose (74-99) mg/dL Plasma Lactic Acid Virgilio 2.1 H* (0.7-2.0) mmol/L Assessment and Plan Assessment: Acute on chronic hypoxic respiratory failure secondary to combination of heart failure and COPD Acute on chronic diastolic heart failure Acute COPD exacerbation -DuoNeb, steroids, Augmentin -Sliding-scale insulin since patient is on high-dose steroids -We'll start patient on IV Lasix 40 mg 3 times a day -Resume home dose metolazone -Keep potassium above 4 and magnesium above 2 -Resume Symbicort -We'll keep patient on BiPAP for now. Titrate as tolerated. Patient's on 2 L home O2 -Consult cardiology and pulmonology LUCIANA on CK D stage III -On admission creatinine is 1.7 -Baseline creatinine is around 1.2 -Likely etiology is cardiorenal syndrome -Monitor BMP Hypokalemia -Replete aggressively Persistent atrial fibrillation -Resume Elocon his, Lopressor and Cardizem Hypertension -Resume home meds Hyperlipidemia -Resume statin Obstructive sleep apnea -Patient currently on BiPAP Lymphedema -Stable Chronic gout -Resume allopurinol CODE STATUS:full code DPOA: DVT prophylaxis: Eliquis Discussed with: Patient, ER, rn Anticipated length of stay > than [address]: home A total of 50 minutes was spent on the care of this complex patient more than 50% of the time was spent in counseling and care coordination.
[2021-10-09] MEDS: INSULIN ASPART (NovoLOG) 100 UNIT/ML VIAL SQ SCH ×2 (18:27→19:49)
[2021-10-09] MEDS: methylPREDNISolone SOD SUCCI 125 MG/2 ML VIAL IV SCH (18:56)
[2021-10-09] MEDS: SYMBICORT 160-4.5 MCG INHALER INHALATION SCH (19:04)
[2021-10-09] MEDS: IPRATROPIUM-ALBUTEROL 3 ML NEB INHALATION SCH (19:04)
[2021-10-09 19:44] LABS: Glucose,Whole Blood 126 mg/dL (75-99)
[2021-10-09] MEDS: METOPROLOL TARTRATE 50 MG TAB PO SCH (19:51)
[2021-10-09] MEDS: PRAVASTATIN SODIUM 20 MG TAB PO SCH (19:51)
[2021-10-09] MEDS: allopurinoL 100 MG TAB PO SCH (19:51)
[2021-10-09] MEDS: DILTIAZEM ORAL 30 MG TAB PO SCH (19:51)
[2021-10-09] MEDS: APIXABAN 5 MG TAB PO SCH (19:51)
[2021-10-09] MEDS: AMOXIC-POT CLAV 875-125MG 1 EACH TAB PO SCH (19:51)
[2021-10-09] MEDS: SILDENAFIL 20 MG TAB PO SCH (22:56)
[2021-10-10] MEDS ORDERED: FUROSEMIDE 40 MG TAB PO SCH
[2021-10-10] MEDS: FUROSEMIDE 10 MG/ML 4 ML VIAL IV SCH ×3 (00:03→16:50)
[2021-10-10] MEDS: methylPREDNISolone SOD SUCCI 125 MG/2 ML VIAL IV SCH ×3 (00:03→13:38)
[2021-10-10 00:20] LABS: Magnesium 2.2 mg/dL (1.6-2.3)
[2021-10-10] MEDS ORDERED: POTASSIUM CHLORIDE ER 20 MEQ TAB.ER PO STA ×3 (01:35→14:15)
[2021-10-10 06:08] LABS: Glucose,Whole Blood 190 mg/dL (75-99)
[2021-10-10] MEDS: INSULIN ASPART (NovoLOG) 100 UNIT/ML VIAL SQ SCH ×4 (06:43→22:12)
[2021-10-10 07:20] LABS: Basophils % (A) 1 %; Eosinophils % (A) 0 %; HCT 44.7 % (39.0-53.0); HGB 14.2 gm/dL (13.0-17.5); Lymphocytes # (A) 0.4 k/uL (1.0-4.8); Lymphocytes % (A) 7 %; MCH 28.2 pg (25.0-35.0); MCHC 31.7 g/dL (31.0-37.0); MCV 88.7 fL (80.0-100.0); Mean Platelet Volume 6.9; Monocytes # (A) 0.1 k/uL (0-1.0); Monocytes % (A) 2 %; Neutrophils # (A) 5.1 k/uL (1.3-7.7); Neutrophils % (A) 90 %; Platelet Count 119 k/uL (150-450); RBC 5.04 m/uL (4.30-5.90); RDW 15.4 % (11.5-15.5); WBC 5.6 k/uL (3.8-10.6)
[2021-10-10] MEDS: IPRATROPIUM-ALBUTEROL 3 ML NEB INHALATION SCH ×4 (07:41→19:47)
[2021-10-10] MEDS: SYMBICORT 160-4.5 MCG INHALER INHALATION SCH ×2 (07:41→19:48)
[2021-10-10 08:09] LABS: Magnesium 2.2 mg/dL (1.6-2.3); Potassium 2.9 mmol/L (3.5-5.1)
[2021-10-10] MEDS: GABAPENTIN 100 MG CAP PO SCH (10:08)
[2021-10-10] MEDS: APIXABAN 5 MG TAB PO SCH ×2 (10:09→22:11)
[2021-10-10] MEDS: AMOXIC-POT CLAV 875-125MG 1 EACH TAB PO SCH ×2 (10:09→22:11)
[2021-10-10] MEDS: DILTIAZEM ORAL 30 MG TAB PO SCH ×2 (10:09→22:11)
[2021-10-10] MEDS: FAMOTIDINE 20 MG TAB PO SCH (10:09)
[2021-10-10] MEDS: METOPROLOL TARTRATE 50 MG TAB PO SCH ×2 (10:13→22:11)
[2021-10-10] MEDS: SILDENAFIL 20 MG TAB PO SCH ×3 (10:14→22:12)
--- NOTE | 2021-10-10 10:29 | P.CRDCN ---
History of Present Illness Consult date: 10/10/21 History of present illness: History of Present Illness: The patient is a 75-year-old male with known history of chronic persistent atrial fibrillation, hypertension hyperlipidemia, chronic obstructive lung disease and obstructive sleep apnea with pulmonary hypertension who presented with symptoms of progressive dyspnea and fatigue. He denies any chest discomfort, dizziness or palpitations. In the past he had a normal systolic function was moderate severe tricuspid regurgitation and severe pulmonary hypertension. He has no history of obstructive CAD. He denies any significant weight gain. He denies any PND or orthopnea. He had no fever. He has a history of chronic kidney disease. He has not been using his CPAP on a regular basis. He was in the hospital in August of this year with similar symptoms. His medication are home include metolazone 2-1/2 mg every other day, diltiazem 90 mg twice a day, sildenafil 20 mg 3 times a day, pravastatin 20 mg daily, metoprolol Caltrate 150 mg twice a day, gabapentin, Lasix 18 the morning 40 in the afternoon on, Ellik was 5 mg twice a day in addition to his updraft. Review of Systems: Respiratory: He has a history of chronic obstructive lung disease on home oxygen and a history of obstructive sleep apnea as well as pulmonary hypertension GI: [She had nausea and vomiting today. No history of peptic ulcer disease. No recent GI bleed.] : [No hematuria or dysuria.] Nervous System: [No stroke or seizure.] Physical Examination: He is a 75-year-old male, obese no acute dyspnea in no apparent distress, blood pressure 102/70 with a heart rate in the 80s Head: [Normocephalic.] Eyes: [Sclerae nonicteric.] Neck: [Good carotid upstroke, no bruit, unable to evaluate jugular venous distention.] Lungs: Decreased breath sounds bilaterally with no wheezes Heart: [Irregular rate and rhythm, S1-S2, no S3, no rub. Systolic ejection murmur at the base.] Abdomen: [Soft obese nontender, positive bowel sounds no organomegaly.] Extremities: [Chronic skin changes with discoloration and 1+ edema, intact distal pulses.] Labs: BUN and creatinine 36 and 1.7, potassium 2.4, hemoglobin 14.3, troponin 0.017, NT proBNP 4520. EKG shows atrial fibrillation with right bundle branch block and left axis deviation. Chest x-ray is consistent with COPD and congestion. Impression: 1. Progressive dyspnea with combination of CHF with preserved systolic function, pulmonary hypertension and COPD 2. Chronic persistent atrial fibrillation, anticoagulated, rate controlled 3. Chronic kidney disease 4. Morbid obesity 5. Obstructive sleep apnea, not using his CPAP. 6. History of hypertension 7. Hyperlipidemia Plan: 1. Continue IV diuretics for 24 hours. Obtain an echocardiogram with Doppler 2. Follow renal functions 3. Patient will benefit from Jardiance or Farxiga 4. Indication regarding low salt intake 5. Encourage CPAP use 6. Depending on his progress further recommendations will be made. Thank you for this consult we will follow with you., Past Medical History Past Medical History: Atrial Fibrillation, Heart Failure, COPD, GERD/Reflux, Hyperlipidemia, Hypertension, Osteoarthritis (OA), Pneumonia, Prostate Disorder, Renal Disease, Sleep Apnea/CPAP/BIPAP, Vascular Disorder Additional Past Medical History / Comment(s): Acute respiratory failure secondary to interstitial pneumonia/sepsis/CHF, chronic lower extremity edema/discoloration, venous insufficiency, CHLOE uses CPAP on occasion, chronic low back pain, generalized arthritis, gout bilateral feet, 2018 MRSA infection R buttock with sepsis. History of Any Multi-Drug Resistant Organisms: MRSA Date of last positivie culture/infection: 04/08/18 MDRO Source:: buttock wound Past Surgical History: Cholecystectomy, Heart Catheterization, Joint Replacement Additional Past Surgical History / Comment(s): 02/19/17 diagnostic cardiac cath, bilateral total knee arthroplasty, ventral hernia repair, colonoscopies, I&D R buttock. Past Anesthesia/Blood Transfusion Reactions: No Reported Reaction Past Psychological History: No Psychological Hx Reported Additional Psychological History / Comment(s): Pt resides with his spouse. He uses a cane/walker prn, He has a nebulizer. He drives. Smoking Status: Former smoker Past Alcohol Use History: None Reported Additional Past Alcohol Use History / Comment(s): Pt started smoking in 1962 and quit in 1977. He used to drink 3-4 beers per day but now only drinks on holidays. Past Drug Use History: None Reported - Past Family History Father Family Medical History: CVA/TIA Additional Family Medical History / Comment(s): Dad at age 89 from stroke. Mother Family Medical History: Dementia Additional Family Medical History / Comment(s): Mother is alive at age 90 with dementia. Sister(s) Additional Family Medical History / Comment(s): Patient has 2 sisters with no major medical problems. Patient does not have any brothers. Patient has 2 adult children with no major medical problems. Medications and Allergies Home Medications Medication Instructions Recorded Confirmed Type Potassium Chloride [Klor-Con 10 ER] 10 meq PO W/SUPPER 12/10/15 10/09/21 History Pravastatin Sodium [Pravachol] 20 mg PO HS 12/10/15 10/09/21 History allopurinoL [Zyloprim] 100 mg PO HS 12/10/15 10/09/21 History Colchicine [Colcrys] 0.6 mg PO DAILY 09/27/16 10/09/21 History Albuterol Sulfate [Albuterol 2 puff INHALATION RT-DAILY 11/18/19 10/09/21 History Sulfate Hfa] Budesonide-Formot 160-4.5 Mcg 2 puff INHALATION RT-BID #1 puff 12/18/19 10/09/21 Rx [Symbicort 160-4.5 Mcg Inhaler] Famotidine [Pepcid] 20 mg PO DAILY #30 tab 12/18/19 10/09/21 Rx Apixaban [Eliquis] 5 mg PO BID 10/01/20 10/09/21 History Metoprolol Tartrate [Lopressor] 150 mg PO BID 10/01/20 10/09/21 History Sildenafil [Revatio] 20 mg PO TID 10/01/20 10/09/21 History Furosemide [Lasix] 80 mg PO DAILY #145 tab 10/05/20 10/09/21 Rx Furosemide [Lasix] 40 mg PO HS 09/04/21 10/09/21 History dilTIAZem HCL 90 mg PO BID 09/04/21 10/09/21 History Gabapentin [Neurontin] 100 mg PO DAILY 10/09/21 10/09/21 History Ipratropium-Albuterol Nebulize 3 ml INHALATION RT-TID 10/09/21 10/09/21 History [Duoneb 0.5 mg-3 mg/3 ml Soln] metOLazone 2.5 mg PO MOWEFR 10/09/21 10/09/21 History Allergies Allergy/AdvReac Type Severity Reaction Status Date / Time No Known Allergies Allergy Verified 10/09/21 17:04 Physical Exam Vitals: Vital Signs Temp Pulse Pulse Resp BP BP Pulse Ox 10/10/21 08:06 83 10/10/21 07:41 99 99 10/10/21 04:25 20 94 L 10/10/21 03:15 98.2 F 63 20 102/70 98 10/10/21 00:00 98.2 F 65 20 98/64 93 L 10/09/21 20:00 98.3 F 95 22 93/59 90 L 10/09/21 19:16 78 10/09/21 19:15 98.4 F 78 26 H 103/57 89 L 10/09/21 19:04 77 10/09/21 17:27 79 20 99/82 97 10/09/21 14:48 98.6 F 63 24 110/60 77 L Intake and Output 10/09/21 10/10/21 10/10/21 22:59 06:59 14:59 Intake Total 10 118 Output Total 700 600 Balance -690 -600 118 Intake: IV 10 Invasive Line 1 10 Oral 118 Output: Urine 700 600 Other: Voiding Method Urinal Urinal Weight 141.521 kg 147 kg Results 10/10/21 06:50 10/10/21 06:50 Cardiac Enzymes 10/09/21 10/09/21 Range/Units 15:09 15:09 AST 57 (17-59) U/L Troponin I 0.017 (0.000-0.034) ng/mL Coagulation 10/09/21 Range/Units 15:09 PT 12.2 H (9.0-12.0) sec APTT 30.3 H (22.0-30.0) sec CBC 10/09/21 10/10/21 Range/Units 15:09 06:50 WBC 10.1 5.6 (3.8-10.6) k/uL RBC 4.98 5.04 (4.30-5.90) m/uL Hgb 14.3 14.2 (13.0-17.5) gm/dL Hct 43.8 44.7 (39.0-53.0) % Plt Count 134 L 119 L (150-450) k/uL Comprehensive Metabolic Panel 10/09/21 10/09/21 10/10/21 Range/Units 15:09 23:34 06:50 Sodium 132 L 134 L (137-145) mmol/L Potassium 2.4 L* 3.0 L 2.9 L (3.5-5.1) mmol/L Chloride 81 L 84 L (98-107) mmol/L Carbon Dioxide 40 H 39 H (22-30) mmol/L BUN 36 H 40 H (9-20) mg/dL Creatinine 1.70 H 1.99 H (0.66-1.25) mg/dL Glucose 148 H 195 H (74-99) mg/dL Calcium 9.0 9.0 (8.4-10.2) mg/dL AST 57 (17-59) U/L ALT 36 (4-49) U/L Alkaline Phosphatase 118 (38-126) U/L Total Protein 6.7 (6.3-8.2) g/dL Albumin 3.8 (3.5-5.0) g/dL Current Medications Generic Name Dose Route Start Last Admin Trade Name Freq PRN Reason Stop Dose Admin Albuterol/Ipratropium 3 ml 10/09/21 20:00 10/10/21 07:41 Ipratropium-Albuterol 3 Ml Neb INHALATION 3 ml RT-QID ROGER Administration Albuterol/Ipratropium 3 ml 10/09/21 17:26 Ipratropium-Albuterol 3 Ml Neb INHALATION RT-Q2H PRN Shortness Of Breath Or Wheezing Allopurinol 100 mg 10/09/21 21:00 10/09/21 19:51 Allopurinol 100 Mg Tab PO 100 mg HS ROGER Administration Amoxicillin/Clavulanate Potassium 1 each 10/09/21 21:00 10/10/21 10:09 Amoxic-Pot Clav 875-125mg 1 Each Tab PO 1 each BID ROGER Administration Protocol Apixaban 5 mg 10/09/21 21:00 10/10/21 10:09 Apixaban 5 Mg Tab PO 5 mg BID ROGER Administration Protocol Budesonide/Formoterol Fumarate 2 puff 10/09/21 20:00 10/10/21 07:41 Symbicort 160-4.5 Mcg Inhaler INHALATION 2 puff RT-BID ROGER Administration Diltiazem HCl 90 mg 10/09/21 21:00 10/10/21 10:09 Diltiazem Oral 30 Mg Tab PO 90 mg BID ROGER Administration Famotidine 20 mg 10/10/21 09:00 10/10/21 10:09 Famotidine 20 Mg Tab PO 20 mg DAILY ROGER Administration Furosemide 40 mg 10/10/21 00:00 10/10/21 10:08 Furosemide 10 Mg/Ml 4 Ml Vial IV 40 mg Q8H ROGER Administration Gabapentin 100 mg 10/10/21 09:00 10/10/21 10:08 Gabapentin 100 Mg Cap PO 100 mg DAILY ROGER Administration Insulin Aspart 0 unit 10/09/21 17:30 10/10/21 06:43 Insulin Aspart (Novolog) 100 Unit/Ml Vial SQ 5 unit ACHS ROGER Administration Protocol Methylprednisolone Sodium Succinate 60 mg 10/09/21 18:00 10/10/21 06:42 Methylprednisolone Sod Succi 125 Mg/2 Ml Vial IV 60 mg Q6HR ROGER Administration Metolazone 2.5 mg 10/11/21 09:00 Metolazone 2.5 Mg Tab PO MOWEFR [facility] Metoprolol Tartrate 150 mg 10/09/21 21:00 10/10/21 10:13 Metoprolol Tartrate 50 Mg Tab PO 150 mg BID ROGER Administration Pravastatin Sodium 20 mg 10/09/21 21:00 10/09/21 19:51 Pravastatin Sodium 20 Mg Tab PO 20 mg HS [facility] Administration Sildenafil Citrate 20 mg 10/09/21 22:00 10/10/21 10:14 Sildenafil 20 Mg Tab PO Not Given TID [facility] Intake and Output 10/09/21 10/10/21 10/10/21 22:59 06:59 14:59 Intake Total 10 118 Output Total 700 600 Balance -690 -600 118 Intake: IV 10 Invasive Line 1 10 Oral 118 Output: Urine 700 600 Other: Voiding Method Urinal Urinal Weight 141.521 kg 147 kg 10/10/21 06:50 10/10/21 06:50
[2021-10-10 11:31] LABS: Glucose,Whole Blood 217 mg/dL (75-99)
[2021-10-10] MEDS: POTASSIUM CHLORIDE ER 20 MEQ TAB.ER PO SCH (13:38)
--- NOTE | 2021-10-10 14:07 | P.CNPUL ---
History of Present Illness Consult date: 10/10/21 Requesting physician: Maurisio Madrid Reason for consult: dyspnea, COPD Chief complaint: Shortness of breath History of present illness: This is a 75-year-old white male with history of multiple medical problems including morbid obesity, chronic diastolic congestive heart failure, COPD, chronic atrial fibrillation, hypertension, chronic kidney disease, obstructive sleep apnea syndrome maintained on BiPAP at home. Patient was last admitted to the hospital on 09/04/2021, and he was discharged home on 09/07/2021. Back then he was treated for acute on chronic hypoxic respiratory failure secondary to acute on chronic diastolic congestive heart failure, acute exacerbation of COPD, acute tracheobronchitis. Patient was eventually discharged home. He was seen briefly yesterday in our office and he was in extreme respiratory distress, chest x-ray showed evidence of pulmonary edema. Patient was directed to come to the ER, evaluated briefly in the ER, seen by cardiology on consultation, patient was readmitted to the hospital, and this consult was initiated. Since yesterday, patient is feeling better breathing easier, apparently he has been receiving Lasix at 40 mg IV push every 8 hours. Patient was placed back on his usual bronchodilators, he is also on methylprednisolone, and back on his cardiac meds including Zaroxolyn,elquis, metoprolol, and diltiazem orally. When I evaluated the patient today, he is already feeling better breathing a lot easier. I reviewed his admission chest x-ray, it is clearly consistent with CHF. Labs showed relatively normal CBC his electrolytes showed low potassium, elevated BUN of 40 creatinine 1.99, baseline creatinine a month ago was 1.17 h owever his creatinine has been as high as 2.98 back around 2 years ago. Review of Systems CONSTITUTIONAL: [Negative.] NEUROLOGIC: [ Negative.] HEENT: [ Negative.] CARDIAC: [Negative.] PULMONARY: Progressive shortness of breath, dry cough, and some chest congestion. GI: [Negative.] : [Negative.] RHEUMATOLOGIC: [ Negative.] IMMUNOLOGIC: [ Negative.] ENDOCRINE: [Negative. ] DERMATOLOGIC: [Negative.] Past Medical History Past Medical History: Atrial Fibrillation, Heart Failure, COPD, GERD/Reflux, Hyperlipidemia, Hypertension, Osteoarthritis (OA), Pneumonia, Prostate Disorder, Renal Disease, Sleep Apnea/CPAP/BIPAP, Vascular Disorder Additional Past Medical History / Comment(s): Acute respiratory failure secondary to interstitial pneumonia/sepsis/CHF, chronic lower extremity edema/discoloration, venous insufficiency, CHLOE uses CPAP on occasion, chronic low back pain, generalized arthritis, gout bilateral feet, 2018 MRSA infection R buttock with sepsis. History of Any Multi-Drug Resistant Organisms: MRSA Date of last positivie culture/infection: 04/08/18 MDRO Source:: buttock wound Past Surgical History: Cholecystectomy, Heart Catheterization, Joint Replacement Additional Past Surgical History / Comment(s): 02/19/17 diagnostic cardiac cath, bilateral total knee arthroplasty, ventral hernia repair, colonoscopies, I&D R buttock. Past Anesthesia/Blood Transfusion Reactions: No Reported Reaction Past Psychological History: No Psychological Hx Reported Additional Psychological History / Comment(s): Pt resides with his spouse. He uses a cane/walker prn, He has a nebulizer. He drives. Smoking Status: Former smoker Past Alcohol Use History: None Reported Additional Past Alcohol Use History / Comment(s): Pt started smoking in 1962 and quit in 1977. He used to drink 3-4 beers per day but now only drinks on ho lidays. Past Drug Use History: None Reported - Past Family History Father Family Medical History: CVA/TIA Additional Family Medical History / Comment(s): Dad at age 89 from stroke. Mother Family Medical History: Dementia Additional Family Medical History / Comment(s): Mother is alive at age 90 with dementia. Sister(s) Additional Family Medical History / Comment(s): Patient has 2 sisters with no major medical problems. Patient does not have any brothers. Patient has 2 adult children with no major medical problems. Medications and Allergies Home Medications Medication Instructions Recorded Confirmed Type Potassium Chloride [Klor-Con 10 ER] 10 meq PO W/SUPPER 12/10/15 10/09/21 History Pravastatin Sodium [Pravachol] 20 mg PO HS 12/10/15 10/09/21 History allopurinoL [Zyloprim] 100 mg PO HS 12/10/15 10/09/21 History Colchicine [Colcrys] 0.6 mg PO DAILY 09/27/16 10/09/21 History Albuterol Sulfate [Albuterol 2 puff INHALATION RT-DAILY 11/18/19 10/09/21 History Sulfate Hfa] Budesonide-Formot 160-4.5 Mcg 2 puff INHALATION RT-BID #1 puff 12/18/19 10/09/21 Rx [Symbicort 160-4.5 Mcg Inhaler] Famotidine [Pepcid] 20 mg PO DAILY #30 tab 12/18/19 10/09/21 Rx Apixaban [Eliquis] 5 mg PO BID 10/01/20 10/09/21 History Metoprolol Tartrate [Lopressor] 150 mg PO BID 10/01/20 10/09/21 History Sildenafil [Revatio] 20 mg PO TID 10/01/20 10/09/21 History Furosemide [Lasix] 80 mg PO DAILY #145 tab 10/05/20 10/09/21 Rx Furosemide [Lasix] 40 mg PO HS 09/04/21 10/09/21 History dilTIAZem HCL 90 mg PO BID 09/04/21 10/09/21 History Gabapentin [Neurontin] 100 mg PO DAILY 10/09/21 10/09/21 History Ipratropium-Albuterol Nebulize 3 ml INHALATION RT-TID 10/09/21 10/09/21 History [Duoneb 0.5 mg-3 mg/3 ml Soln] metOLazone 2.5 mg PO MOWEFR 10/09/21 10/09/21 History Allergies Allergy/AdvReac Type Severity Reaction Status Date / Time No Known Allergies Allergy Verified 10/09/21 17:04 Physical Exam Vitals: Vital Signs Temp Pulse Pulse Resp BP BP Pulse Ox 10/10/21 12:00 97.7 F 72 20 136/98 93 L 10/10/21 11:23 88 10/10/21 11:12 88 10/10/21 10:07 97.7 F 81 20 108/68 97 10/10/21 08:06 83 10/10/21 07:41 99 99 10/10/21 04:25 20 94 L 10/10/21 03:15 98.2 F 63 20 102/70 98 10/10/21 00:00 98.2 F 65 20 98/64 93 L 10/09/21 20:00 98.3 F 95 22 93/59 90 L 10/09/21 19:16 78 10/09/21 19:15 98.4 F 78 26 H 103/57 89 L 10/09/21 19:04 77 10/09/21 17:27 79 20 99/82 97 10/09/21 14:48 98.6 F 63 24 110/60 77 L Intake and Output 10/09/21 10/10/21 10/10/21 22:59 06:59 14:59 Intake Total 10 128 Output Total 700 600 Balance -690 -600 128 Intake: IV 10 10 Invasive Line 1 10 10 Oral 118 Output: Urine 700 600 Other: Voiding Method Urinal Urinal Weight 141.521 kg 147 kg Physical Exam: Revealed 75-year-old white male in no distress, presently on 4 L nasal cannula. Head: Atraumatic normocephalic. HEENT:[Neck is supple.] [No neck masses.] [No thyromegaly.] [No JVD.] Patient has short obese neck. PERRLA, EOMI, anicteric. Chest: [Symmetrical chest expansion 5 crackles at the bases no rhonchi and no wheezes] Cardiac Exam: Irregular irregular rhythm, distant S1 and S2, no S3 gallop, 2/6 systolic murmur thought the precordium. Abdomen: [Obese, Soft, nontender, no megaly, no rebound, no guarding, normal bowel sounds.] Extremities: Chronic venous stasis changes noted in both lower extremities, 1+ bipedal edema. Diminished distal pulses. Neurological Exam: [No focal neurologic deficit.] Alert and oriented 3. Psychiatric: Normal mood, affect and normal mental status examination. Skin: No rashes, however he does have chronic venous stasis changes noted in lower extremities. Musculoskeletal: No deformities and no limitation in range of motion. Results - Laboratory Findings CBC and BMP: 10/10/21 06:50 10/10/21 06:50 PT/INR, D-dimer PT 12.2 sec (9.0-12.0) H 10/09/21 15:09 INR 1.1 (<1.2) 10/09/21 15:09 D-Dimer <0.17 mg/L FEU (<0.60) 10/09/21 15:09 Abnormal lab findings: Abnormal Labs 10/09/21 10/09/21 10/09/21 15:09 15:09 15:09 RDW 15.7 H Plt Count 134 L Lymphocytes # PT 12.2 H APTT 30.3 H Sodium 132 L Potassium 2.4 L* Chloride 81 L Carbon Dioxide 40 H BUN 36 H Creatinine 1.70 H Glucose 148 H POC Glucose (mg/dL) Plasma Lactic Acid Virgilio 10/09/21 10/09/21 10/09/21 15:09 19:40 23:34 RDW Plt Count Lymphocytes # PT APTT Sodium Potassium 3.0 L Chloride Carbon Dioxide BUN Creatinine Glucose POC Glucose (mg/dL) 126 H Plasma Lactic Acid Virgilio 2.1 H* 10/10/21 10/10/21 10/10/21 06:04 06:50 06:50 RDW Plt Count 119 L Lymphocytes # 0.4 L PT APTT Sodium 134 L Potassium 2.9 L Chloride 84 L Carbon Dioxide 39 H BUN 40 H Creatinine 1.99 H Glucose 195 H POC Glucose (mg/dL) 190 H Plasma Lactic Acid Virgilio 10/10/21 11:28 RDW Plt Count Lymphocytes # PT APTT Sodium Potassium Chloride Carbon Dioxide BUN Creatinine Glucose POC Glucose (mg/dL) 217 H Plasma Lactic Acid Virgilio - Diagnostic Findings Chest x-ray: image reviewed (As noted in HPI. Chest x-ray is consistent with congestive heart failure.) Assessment and Plan Assessment: Impression: Acute on chronic hypoxic respiratory failure secondary mostly to acute on chronic diastolic heart failure and underlying COPD which does not seem to be very active at this point. Chronic atrial fibrillation Chronic kidney disease stage III Benign essential hypertension Obstructive sleep apnea syndrome, on home CPAP. Chronic venous stasis changes Chronic gout GERD without esophagitis Morbid obesity BMI of 45.2 History of MRSA infection/buttocks, requiring incision and drainage back in 2018. History of degenerative joint disease Recommendation: Continue Lasix at 40 mg IV push every 8 hours Continue oxygen and titrate accordingly Resume home meds including cardiac medications Continue BiPAP at bedside. And use as needed Continue bronchodilators including DuoNeb updrafts, and would lower the dose of Solu-Medrol since his COPD does not seem to be very active Continue GI and DVT prophylaxis. Prognosis is relatively guarded. We'll continue to follow. Time with Patient: Greater than 30
--- NOTE | 2021-10-10 14:21 | P.PN ---
Subjective Progress Note Date: 10/10/21 Patient is a 75-year-old male with a past medical history of chronic diastolic heart failure, chronic hypoxic respiratory failure with home O2 at 2 L, COPD, persistent atrial fibrillation, chronic kidney disease stage III, hypertension, hyperlipidemia, severe obstructive sleep apnea on BiPAP, chronic gout, lymphedema who presents to the ED with shortness of breath. Patient was admitted about one month ago for similar symptoms. He was treated for CHF and COPD exacerbation. Patient states that after he was discharged he was doing well for 3-4 days but then gradually started to get worse. Patient states that he sleeps in a chair. He states that he cannot lay down flat. Patient states that he has been compliant with his medications and also his diet. His at bedside confirmed that patient has been compliant with his diet. Patient also reports that he is coughing up large yellow brownish sputum. Patient denies any fever or chills. Patient also denies any chest pain or palpitation. In the ED patient was 77% on 6 L nasal cannula. He was placed on BiPAP. Patient was also given 1 dose of IV Lasix 80 mg. Patient states that his breathing is getting better since he came in. Patient's chest x-ray consistent with volume overload. Patient's creatinine 1.7, potassium 2.4, lactic acid 2.1. 10/10/21: Patient states that his breathing is improving. He is currently on 4 L nasal cannula and is satting well. Patient's creatinine is increasing and is now up to 1.99. Patient's IV steroid has been decreased by pulmonology. Cardiology ordered echocardiogram with Doppler studies. Objective - Vital Signs Vital signs: Vital Signs Temp 97.7 F 10/10/21 12:00 Pulse 72 10/10/21 12:00 Resp 20 10/10/21 12:00 BP 136/98 10/10/21 12:00 Pulse Ox 93 L 10/10/21 12:00 Intake & Output 10/09/21 10/10/21 10/10/21 18:59 06:59 18:59 Intake Total 10 128 Output Total 300 1000 Balance -300 -990 128 Weight 141.521 kg 147 kg Intake: IV 10 10 Invasive Line 1 10 10 Oral 118 Output: Urine 300 1000 Other: Voiding Method Urinal - Exam General examination - Alert and Oriented 3 in NAD Heart - + S1S2 no murmurs Lungs -diminished breath sounds bilaterally Abdomen soft NT ND +ve BS, morbidly obese Extremities -+1 pitting edema in bilateral lower extremity, discoloration in lower extremities 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 Psych - Calm and cooperative - Labs CBC & Chem 7: 10/10/21 06:50 10/10/21 06:50 Labs: Abnormal Lab Results - Last 24 Hours (Table) 10/09/21 10/09/21 10/09/21 Range/Units 15:09 15:09 15:09 RDW 15.7 H (11.5-15.5) % Plt Count 134 L (150-450) k/uL Lymphocytes # (1.0-4.8) k/uL PT 12.2 H (9.0-12.0) sec APTT 30.3 H (22.0-30.0) sec Sodium 132 L (137-145) mmol/L Potassium 2.4 L* (3.5-5.1) mmol/L Chloride 81 L (98-107) mmol/L Carbon Dioxide 40 H (22-30) mmol/L BUN 36 H (9-20) mg/dL Creatinine 1.70 H (0.66-1.25) mg/dL Glucose 148 H (74-99) mg/dL POC Glucose (mg/dL) (75-99) mg/dL Plasma Lactic Acid Virgilio (0.7-2.0) mmol/L 10/09/21 10/09/21 10/09/21 Range/Units 15:09 19:40 23:34 RDW (11.5-15.5) % Plt Count (150-450) k/uL Lymphocytes # (1.0-4.8) k/uL PT (9.0-12.0) sec APTT (22.0-30.0) sec Sodium (137-145) mmol/L Potassium 3.0 L (3.5-5.1) mmol/L Chloride (98-107) mmol/L Carbon Dioxide (22-30) mmol/L BUN (9-20) mg/dL Creatinine (0.66-1.25) mg/dL Glucose (74-99) mg/dL POC Glucose (mg/dL) 126 H (75-99) mg/dL Plasma Lactic Acid Virgilio 2.1 H* (0.7-2.0) mmol/L 10/10/21 10/10/21 10/10/21 Range/Units 06:04 06:50 06:50 RDW (11.5-15.5) % Plt Count 119 L (150-450) k/uL Lymphocytes # 0.4 L (1.0-4.8) k/uL PT (9.0-12.0) sec APTT (22.0-30.0) sec Sodium 134 L (137-145) mmol/L Potassium 2.9 L (3.5-5.1) mmol/L Chloride 84 L (98-107) mmol/L Carbon Dioxide 39 H (22-30) mmol/L BUN 40 H (9-20) mg/dL Creatinine 1.99 H (0.66-1.25) mg/dL Glucose 195 H (74-99) mg/dL POC Glucose (mg/dL) 190 H (75-99) mg/dL Plasma Lactic Acid Virgilio (0.7-2.0) mmol/L 10/10/21 Range/Units 11:28 RDW (11.5-15.5) % Plt Count (150-450) k/uL Lymphocytes # (1.0-4.8) k/uL PT (9.0-12.0) sec APTT (22.0-30.0) sec Sodium (137-145) mmol/L Potassium (3.5-5.1) mmol/L Chloride (98-107) mmol/L Carbon Dioxide (22-30) mmol/L BUN (9-20) mg/dL Creatinine (0.66-1.25) mg/dL Glucose (74-99) mg/dL POC Glucose (mg/dL) 217 H (75-99) mg/dL Plasma Lactic Acid Virgilio (0.7-2.0) mmol/L Assessment and Plan Assessment: Acute on chronic hypoxic respiratory failure secondary to combination of heart failure and COPD Acute on chronic diastolic heart failure Acute COPD exacerbation -DuoNeb, steroids -> taper down steroids, Augmentin -Sliding-scale insulin since patient is on high-dose steroids -IV Lasix as per cardiology -Resume home dose metolazone -Keep potassium above 4 and magnesium above 2 -Resume Symbicort -Patient currently on 4 L nasal cannula. Wean O2 as tolerated. Patient's on 2 L home O2 -Cardiology and pulmonology on board -Check echocardiogram with Doppler study LUCIANA on CK D stage III -On admission creatinine is 1.7 -Baseline creatinine is around 1.2 -Likely etiology is cardiorenal syndrome -Monitor BMP -Creatinine is increasing Hypokalemia -Replete aggressively Persistent atrial fibrillation -Resume Eliquis, Lopressor and Cardizem Hypertension -Resume home meds Hyperlipidemia -Resume statin Obstructive sleep apnea -BiPAP at nighttime Lymphedema -Stable Chronic gout -Resume allopurinol CODE STATUS:full code DPOA: DVT prophylaxis: Eliquis Anticipated length of stay: 2-[address]: home
[2021-10-10 14:23] VITALS: BMI 45.1
[2021-10-10 16:45] LABS: Glucose,Whole Blood 169 mg/dL (75-99)
[2021-10-10] MEDS: methylPREDNISolone SOD SUCCI 40 MG/ML 1 ML VIAL IV SCH (16:50)
[2021-10-10 20:42] LABS: Glucose,Whole Blood 194 mg/dL (75-99)
[2021-10-10] MEDS: allopurinoL 100 MG TAB PO SCH (22:11)
[2021-10-10] MEDS: PRAVASTATIN SODIUM 20 MG TAB PO SCH (22:12)
[2021-10-11] MEDS: methylPREDNISolone SOD SUCCI 40 MG/ML 1 ML VIAL IV SCH ×2 (00:25→09:15)
[2021-10-11] MEDS: FUROSEMIDE 10 MG/ML 4 ML VIAL IV SCH ×2 (00:25→09:13)
[2021-10-11 06:25] LABS: Glucose,Whole Blood 197 mg/dL (75-99)
[2021-10-11] MEDS: INSULIN ASPART (NovoLOG) 100 UNIT/ML VIAL SQ SCH ×4 (06:37→21:50)
[2021-10-11] MEDS: SYMBICORT 160-4.5 MCG INHALER INHALATION SCH ×2 (07:26→19:27)
[2021-10-11] MEDS: IPRATROPIUM-ALBUTEROL 3 ML NEB INHALATION SCH ×4 (07:26→19:27)
[2021-10-11] MEDS ORDERED: metOLazone 2.5 MG TAB PO SCH (09:00)
[2021-10-11 09:10] LABS: Basophils % (A) 0 %; Eosinophils % (A) 0 %; HCT 45.6 % (39.0-53.0); HGB 14.1 gm/dL (13.0-17.5); Lymphocytes # (A) 0.5 k/uL (1.0-4.8); Lymphocytes % (A) 3 %; MCH 27.8 pg (25.0-35.0); MCHC 30.8 g/dL (31.0-37.0); MCV 90.2 fL (80.0-100.0); Mean Platelet Volume 7.3; Monocytes # (A) 0.5 k/uL (0-1.0); Monocytes % (A) 3 %; Neutrophils # (A) 15.4 k/uL (1.3-7.7); Neutrophils % (A) 94 %; Platelet Count 134 k/uL (150-450); RBC 5.06 m/uL (4.30-5.90); RDW 15.7 % (11.5-15.5); WBC 16.5 k/uL (3.8-10.6)
[2021-10-11] MEDS: POTASSIUM CHLORIDE ER 20 MEQ TAB.ER PO SCH ×2 (09:14→21:50)
[2021-10-11] MEDS: DILTIAZEM ORAL 30 MG TAB PO SCH ×2 (09:14→21:50)
[2021-10-11] MEDS: AMOXIC-POT CLAV 875-125MG 1 EACH TAB PO SCH ×2 (09:14→21:50)
[2021-10-11] MEDS: METOPROLOL TARTRATE 50 MG TAB PO SCH ×2 (09:14→21:50)
[2021-10-11] MEDS: APIXABAN 5 MG TAB PO SCH ×2 (09:15→21:50)
[2021-10-11] MEDS: GABAPENTIN 100 MG CAP PO SCH (09:15)
[2021-10-11] MEDS: FAMOTIDINE 20 MG TAB PO SCH (09:15)
[2021-10-11] MEDS: SILDENAFIL 20 MG TAB PO SCH ×3 (09:15→21:51)
[2021-10-11 09:33] LABS: Calcium 9.4 mg/dL (8.4-10.2); Potassium 3.5 mmol/L (3.5-5.1)
--- NOTE | 2021-10-11 11:21 | P.PN ---
Subjective Progress Note Date: 10/11/21 Patient is a 75-year-old male with a past medical history of chronic diastolic heart failure, chronic hypoxic respiratory failure with home O2 at 2 L, COPD, persistent atrial fibrillation, chronic kidney disease stage III, hypertension, hyperlipidemia, severe obstructive sleep apnea on BiPAP, chronic gout, lymphedema who presents to the ED with shortness of breath. Patient was admitted about one month ago for similar symptoms. He was treated for CHF and COPD exacerbation. Patient states that after he was discharged he was doing well for 3-4 days but then gradually started to get worse. Patient states that he sleeps in a chair. He states that he cannot lay down flat. Patient states that he has been compliant with his medications and also his diet. His at bedside confirmed that patient has been compliant with his diet. Patient also reports that he is coughing up large yellow brownish sputum. Patient denies any fever or chills. Patient also denies any chest pain or palpitation. In the ED patient was 77% on 6 L nasal cannula. He was placed on BiPAP. Patient was also given 1 dose of IV Lasix 80 mg. Patient states that his breathing is getting better since he came in. Patient's chest x-ray consistent with volume overload. Patient's creatinine 1.7, potassium 2.4, lactic acid 2.1. 10/10/21: Patient states that his breathing is improving. He is currently on 4 L nasal cannula and is satting well. Patient's creatinine is increasing and is now up to 1.99. Patient's IV steroid has been decreased by pulmonology. Cardiology ordered echocardiogram with Doppler studies 10/11/21: Patient states that he is feeling much better since admission. His creatinine is up to 2.2. Satting well on 4 L nasal cannula. Objective - Vital Signs Vital signs: Vital Signs Temp 98.2 F 10/11/21 09:00 Pulse 89 10/11/21 09:00 Resp 18 10/11/21 09:00 BP 116/73 10/11/21 09:00 Pulse Ox 95 10/11/21 09:00 Intake & Output 10/10/21 10/11/21 10/11/21 18:59 06:59 18:59 Intake Total 348 10 120 Output Total 400 1000 Balance -52 -990 120 Weight 147 kg 148.3 kg Intake: IV 10 10 Invasive Line 1 10 10 Oral 338 120 Output: Urine 400 1000 Other: Voiding Method Urinal Urinal # Voids 3 - Exam General examination - Alert and Oriented 3 in NAD Heart - + S1S2 no murmurs Lungs -diminished breath sounds bilaterally Abdomen soft NT ND +ve BS, morbidly obese Extremities -+1 pitting edema in bilateral lower extremity, discoloration in lower extremities 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 Psych - Calm and cooperative - Labs CBC & Chem 7: 10/11/21 08:32 10/11/21 08:32 Labs: Abnormal Lab Results - Last 24 Hours (Table) 10/10/21 10/10/21 10/10/21 Range/Units 11:28 16:43 20:38 WBC (3.8-10.6) k/uL MCHC (31.0-37.0) g/dL RDW (11.5-15.5) % Plt Count (150-450) k/uL Neutrophils # (1.3-7.7) k/uL Lymphocytes # (1.0-4.8) k/uL Sodium (137-145) mmol/L Potassium (3.5-5.1) mmol/L Chloride (98-107) mmol/L Carbon Dioxide (22-30) mmol/L BUN (9-20) mg/dL Creatinine (0.66-1.25) mg/dL Glucose (74-99) mg/dL POC Glucose (mg/dL) 217 H 169 H 194 H (75-99) mg/dL 10/10/21 10/11/21 10/11/21 Range/Units 21:33 06:19 08:32 WBC (3.8-10.6) k/uL MCHC (31.0-37.0) g/dL RDW (11.5-15.5) % Plt Count (150-450) k/uL Neutrophils # (1.3-7.7) k/uL Lymphocytes # (1.0-4.8) k/uL Sodium 134 L (137-145) mmol/L Potassium 3.1 L (3.5-5.1) mmol/L Chloride 83 L (98-107) mmol/L Carbon Dioxide 41 H* (22-30) mmol/L BUN 62 H (9-20) mg/dL Creatinine 2.21 H (0.66-1.25) mg/dL Glucose 236 H (74-99) mg/dL POC Glucose (mg/dL) 197 H (75-99) mg/dL 10/11/21 Range/Units 08:32 WBC 16.5 H (3.8-10.6) k/uL MCHC 30.8 L (31.0-37.0) g/dL RDW 15.7 H (11.5-15.5) % Plt Count 134 L (150-450) k/uL Neutrophils # 15.4 H (1.3-7.7) k/uL Lymphocytes # 0.5 L (1.0-4.8) k/uL Sodium (137-145) mmol/L Potassium (3.5-5.1) mmol/L Chloride (98-107) mmol/L Carbon Dioxide (22-30) mmol/L BUN (9-20) mg/dL Creatinine (0.66-1.25) mg/dL Glucose (74-99) mg/dL POC Glucose (mg/dL) (75-99) mg/dL Microbiology - Last 24 Hours (Table) 10/09/21 15:15 Blood Culture - Preliminary Blood No Growth after 24 hours 10/09/21 15:00 Blood Culture - Preliminary Blood No Growth after 24 hours Assessment and Plan Assessment: Acute on chronic hypoxic respiratory failure secondary to combination of heart failure and COPD Acute on chronic diastolic heart failure Acute COPD exacerbation -DuoNeb, steroids -> taper down steroids -> will transition to oral steroids, Augmentin -Sliding-scale insulin since patient is on high-dose steroids -IV Lasix as per cardiology -Resume home dose metolazone -Keep potassium above 4 and magnesium above 2 -Resume Symbicort -Patient currently on 4 L nasal cannula. Wean O2 as tolerated. Patient's on 2 L home O2 -Cardiology and pulmonology on board -Check echocardiogram with Doppler study LUCIANA on CK D stage III -On admission creatinine is 1.7 -Baseline creatinine is around 1.2 -Likely etiology is cardiorenal syndrome -Monitor BMP -Creatinine is increasing -Defer diuretics to cardiology Hypokalemia -Replete aggressively Persistent atrial fibrillation -Resume Eliquis, Lopressor and Cardizem Hypertension -Resume home meds Hyperlipidemia -Resume statin Obstructive sleep apnea -BiPAP at nighttime Lymphedema -Stable Chronic gout -Resume allopurinol CODE STATUS:full code DPOA: DVT prophylaxis: Eliquis Anticipated length of stay: 2-[address]: home
[2021-10-11 11:39] LABS: Glucose,Whole Blood 202 mg/dL (75-99)
--- NOTE | 2021-10-11 11:39 | P.PN ---
Subjective Progress Note Date: 10/11/21 HISTORY OF PRESENT ILLNESS: The patient is a 75-year-old male with known history of chronic persistent atrial fibrillation, hypertension hyperlipidemia, chronic obstructive lung dis ease and obstructive sleep apnea with pulmonary hypertension who presented with symptoms of progressive dyspnea and fatigue. He denies any chest discomfort, dizziness or palpitations. In the past he had a normal systolic function was moderate severe tricuspid regurgitation and severe pulmonary hypertension. He has no history of obstructive CAD. He denies any significant weight gain. He denies any PND or orthopnea. He had no fever. He has a history of chronic kidney disease. He has not been using his CPAP on a regular basis. He was in the hospital in August of this year with similar symptoms. His medication are home include metolazone 2-1/2 mg every other day, diltiazem 90 mg twice a day, sildenafil 20 mg 3 times a day, pravastatin 20 mg daily, metoprolol Caltrate 150 mg twice a day, gabapentin, Lasix 18 the morning 40 in the afternoon on, Ellik was 5 mg twice a day in addition to his updraft. 10/11/2021 Patient examined this morning at the bedside. Patient denies chest pain or pressure. He denies shortness of breath. He remains on IV Lasix 40 mg every 8 hours. Telemetry reveals atrial fibrillation with controlled ventricular rate. Vital signs are stable. Creatinine today 2.21. PHYSICAL EXAM: VITAL SIGNS: Reviewed. GENERAL: Well-developed in no acute distress. NECK: Supple. No JVD or thyromegaly LUNGS: Respirations even and unlabored. Lungs diminished to auscultation bilaterally. HEART: Irregular rate and rhythm. S1 and S2 heard. Systolic murmur noted. EXTREMITIES: Normal range of motion. No clubbing or cyanosis. Peripheral pulses intact. 1+ lower extremity edema with chronic skin discoloration ASSESSMENT: 1. Progressive dyspnea with combination of CHF with preserved systolic fu nction, pulmonary hypertension and COPD 2. Chronic persistent atrial fibrillation, anticoagulated, rate controlled 3. Chronic kidney disease 4. Morbid obesity 5. Obstructive sleep apnea, not using his CPAP. 6. History of hypertension 7. Hyperlipidemia PLAN: Continue current cardiac medications Discontinue IV Lasix Resume oral Lasix Monitor kidney function Further recommendations pending patient course Nurse practitioner note has been reviewed by physician. Signing provider agrees with the documented findings, assessment, and plan of care. Objective - Vital Signs Vital signs: Vital Signs Temp 98.2 F 10/11/21 09:00 Pulse 89 10/11/21 09:00 Resp 18 10/11/21 09:00 BP 116/73 10/11/21 09:00 Pulse Ox 95 10/11/21 09:00 Intake & Output 10/10/21 10/11/21 10/11/21 18:59 06:59 18:59 Intake Total 348 10 120 Output Total 400 1000 Balance -52 -990 120 Weight 147 kg 148.3 kg Intake: IV 10 10 Invasive Line 1 10 10 Oral 338 120 Output: Urine 400 1000 Other: Voiding Method Urinal Urinal # Voids 3 - Labs CBC & Chem 7: 10/11/21 08:32 10/11/21 08:32 Labs: Abnormal Lab Results - Last 24 Hours (Table) 10/10/21 10/10/21 10/10/21 Range/Units 11:28 16:43 20:38 WBC (3.8-10.6) k/uL MCHC (31.0-37.0) g/dL RDW (11.5-15.5) % Plt Count (150-450) k/uL Neutrophils # (1.3-7.7) k/uL Lymphocytes # (1.0-4.8) k/uL Sodium (137-145) mmol/L Potassium (3.5-5.1) mmol/L Chloride (98-107) mmol/L Carbon Dioxide (22-30) mmol/L BUN (9-20) mg/dL Creatinine (0.66-1.25) mg/dL Glucose (74-99) mg/dL POC Glucose (mg/dL) 217 H 169 H 194 H (75-99) mg/dL 10/10/21 10/11/21 10/11/21 Range/Units 21:33 06:19 08:32 WBC (3.8-10.6) k/uL MCHC (31.0-37.0) g/dL RDW (11.5-15.5) % Plt Count (150-450) k/uL Neutrophils # (1.3-7.7) k/uL Lymphocytes # (1.0-4.8) k/uL Sodium 134 L (137-145) mmol/L Potassium 3.1 L (3.5-5.1) mmol/L Chloride 83 L (98-107) mmol/L Carbon Dioxide 41 H* (22-30) mmol/L BUN 62 H (9-20) mg/dL Creatinine 2.21 H (0.66-1.25) mg/dL Glucose 236 H (74-99) mg/dL POC Glucose (mg/dL) 197 H (75-99) mg/dL 10/11/21 Range/Units 08:32 WBC 16.5 H (3.8-10.6) k/uL MCHC 30.8 L (31.0-37.0) g/dL RDW 15.7 H (11.5-15.5) % Plt Count 134 L (150-450) k/uL Neutrophils # 15.4 H (1.3-7.7) k/uL Lymphocytes # 0.5 L (1.0-4.8) k/uL Sodium (137-145) mmol/L Potassium (3.5-5.1) mmol/L Chloride (98-107) mmol/L Carbon Dioxide (22-30) mmol/L BUN (9-20) mg/dL Creatinine (0.66-1.25) mg/dL Glucose (74-99) mg/dL POC Glucose (mg/dL) (75-99) mg/dL Microbiology - Last 24 Hours (Table) 10/09/21 15:15 Blood Culture - Preliminary Blood No Growth after 24 hours 10/09/21 15:00 Blood Culture - Preliminary Blood No Growth after 24 hours
--- NOTE | 2021-10-11 12:56 | P.PN ---
Subjective Progress Note Date: 10/11/21 Principal diagnosis: Dyspnea, COPD This is a 75-year-old white male with history of multiple medical problems including morbid obesity, chronic diastolic congestive heart failure, COPD, chronic atrial fibrillation, hypertension, chronic kidney disease, obstructive sleep apnea syndrome maintained on BiPAP at home. Patient was last admitted to the hospital on 09/04/2021, and he was discharged home on 09/07/2021. Back then he was treated for acute on chronic hypoxic respiratory failure secondary to acute on chronic diastolic congestive heart failure, acute exacerbation of COPD, acute tracheobronchitis. Patient was eventually discharged home. He was seen briefly yesterday in our office and he was in extreme respiratory distress, chest x-ray showed evidence of pulmonary edema. Patient was directed to come to the ER, evaluated briefly in the ER, seen by cardiology on consultation, patient was readmitted to the hospital, and this consult was initiated. Since yesterda y, patient is feeling better breathing easier, apparently he has been receiving Lasix at 40 mg IV push every 8 hours. Patient was placed back on his usual bronchodilators, he is also on methylprednisolone, and back on his cardiac meds including Zaroxolyn,elquis, metoprolol, and diltiazem orally. When I evaluated the patient today, he is already feeling better breathing a lot easier. I reviewed his admission chest x-ray, it is clearly consistent with CHF. Labs showed relatively normal CBC his electrolytes showed low potassium, elevated BUN of 40 creatinine 1.99, baseline creatinine a month ago was 1.17 however his creatinine has been as high as 2.98 back around 2 years ago. On 10/11/2021 patient seen in follow-up on selective care unit, he is awake and alert, in no acute distress. On 4 L of oxygen and his pulse ox is 95-97%, he normally wears 3 L of oxygen on a regular basis, he remains on diuretics with Lasix, and he is maintaining negative fluid balance of 1042 mL over the last 24 hours. His proBNP is improved on today's labs and is down to 3440. He continues on Zaroxolyn on Thursday schedule. His IV steroids have been transitioned to oral prednisone, he continues on DuoNeb. Today's labs have been noted, white blood cell count is 16.5, hemoglobin is 14.1, sodium is 134, potassium is 3.5, chloride is 83, CO2 is 41, B1 is 62 creatinine is 2.21. Objective - Vital Signs Vital signs: Vital Signs Temp 98.2 F 10/11/21 09:00 Pulse 76 10/11/21 11:45 Resp 18 10/11/21 09:00 BP 116/73 10/11/21 09:00 Pulse Ox 95 10/11/21 09:00 Intake & Output 10/10/21 10/11/21 10/11/21 18:59 06:59 18:59 Intake Total 348 10 120 Output Total 400 1000 Balance -52 -990 120 Weight 147 kg 148.3 kg Intake: IV 10 10 Invasive Line 1 10 10 Oral 338 120 Output: Urine 400 1000 Other: Voiding Method Urinal Urinal # Voids 3 2 - Exam GENERAL EXAM: Alert, very pleasant 75-year-old white male, currently on 4 L of oxygen pulse ox is 95% comfortable in no apparent distress. HEAD: Normocephalic/atraumatic. EYES: Normal reaction of pupils, equal size. Conjunctiva pink, sclera white. NOSE: Clear with pink turbinates. THROAT: No erythema or exudates. NECK: No masses, no JVD, no thyroid enlargement, no adenopathy. CHEST: No chest wall deformity. Symmetrical expansion. LUNGS: Equal air entry with no crackles, wheeze, rhonchi or dullness. CVS: Irregular rate and rhythm, normal S1 and S2, no gallops, no murmurs, no rubs ABDOMEN: Soft, nontender. No hepatosplenomegaly, normal bowel sounds, no guarding or rigidity. EXTREMITIES: No clubbing, no edema, no cyanosis, 2+ pulses and upper and lower extremities. MUSCULOSKELETAL: Muscle strength and tone normal. SPINE: No scoliosis or deformity SKIN: No rashes CENTRAL NERVOUS SYSTEM: Alert and oriented -3. No focal deficits, tone is normal in all 4 extremities. PSYCHIATRIC: Alert and oriented -3. Appropriate affect. Intact judgment and insight. - Labs CBC & Chem 7: 10/11/21 08:32 10/11/21 08:32 Labs: Abnormal Lab Results - Last 24 Hours (Table) 10/10/21 10/10/21 10/10/21 Range/Units 16:43 20:38 21:33 WBC (3.8-10.6) k/uL MCHC (31.0-37.0) g/dL RDW (11.5-15.5) % Plt Count (150-450) k/uL Neutrophils # (1.3-7.7) k/uL Lymphocytes # (1.0-4.8) k/uL Sodium (137-145) mmol/L Potassium 3.1 L (3.5-5.1) mmol/L Chloride (98-107) mmol/L Carbon Dioxide (22-30) mmol/L BUN (9-20) mg/dL Creatinine (0.66-1.25) mg/dL Glucose (74-99) mg/dL POC Glucose (mg/dL) 169 H 194 H (75-99) mg/dL 10/11/21 10/11/21 10/11/21 Range/Units 06:19 08:32 08:32 WBC 16.5 H (3.8-10.6) k/uL MCHC 30.8 L (31.0-37.0) g/dL RDW 15.7 H (11.5-15.5) % Plt Count 134 L (150-450) k/uL Neutrophils # 15.4 H (1.3-7.7) k/uL Lymphocytes # 0.5 L (1.0-4.8) k/uL Sodium 134 L (137-145) mmol/L Potassium (3.5-5.1) mmol/L Chloride 83 L (98-107) mmol/L Carbon Dioxide 41 H* (22-30) mmol/L BUN 62 H (9-20) mg/dL Creatinine 2.21 H (0.66-1.25) mg/dL Glucose 236 H (74-99) mg/dL POC Glucose (mg/dL) 197 H (75-99) mg/dL 10/11/21 Range/Units 11:38 WBC (3.8-10.6) k/uL MCHC (31.0-37.0) g/dL RDW (11.5-15.5) % Plt Count (150-450) k/uL Neutrophils # (1.3-7.7) k/uL Lymphocytes # (1.0-4.8) k/uL Sodium (137-145) mmol/L Potassium (3.5-5.1) mmol/L Chloride (98-107) mmol/L Carbon Dioxide (22-30) mmol/L BUN (9-20) mg/dL Creatinine (0.66-1.25) mg/dL Glucose (74-99) mg/dL POC Glucose (mg/dL) 202 H (75-99) mg/dL Microbiology - Last 24 Hours (Table) 10/09/21 15:15 Blood Culture - Preliminary Blood No Growth after 24 hours 10/09/21 15:00 Blood Culture - Preliminary Blood No Growth after 24 hours Assessment and Plan Plan: Assessment: #1. Acute on chronic hypoxic rest to failure secondary mostly to acute on chronic diastolic CHF and underlying COPD #2. Chronic A. fib on [place] #3. Chronic kidney disease stage III #4. Benign essential hypertension #5. Obstructive sleep apnea on home CPAP #6. Chronic venous stasis #7. Chronic gout #8. GERD without esophagitis #9. Morbid obesity with BMI 45.2 #10. History of MRSA infection on the buttocks requiring incision and drainage back in 2018 #11. History of degenerative joint disease Plan: Patient is breathing more comfortably Continue weaning FiO2 Diuretics per cardiology recommendations Continue nebulized bronchodilators Agree with transitioning IV steroids to oral prednisone Continue monitoring electrolytes and renal profile I have personally seen and examined the patient, performed the documentation and the assessment and plan as written. Number of minutes spent on the visit: [10] Time with Patient: Less than 30
[2021-10-11 16:15] LABS: Glucose,Whole Blood 191 mg/dL (75-99)
[2021-10-11 18:49] LABS: ABG Base Excess 20.7 mmol/L; ABG Oxygen Saturation 94.5 % (94-97); ABG PCO2 53 mmHg (35-45); ABG PH 7.53 (7.35-7.45); ABG PO2 68 mmHg (83-108); ABG TCO2 45 mmol/L (19-24); Allen Test Performed? Yes
[2021-10-11 18:52] LABS: ABG HCO3 44 mmol/L (21-25)
[2021-10-11 20:47] LABS: Glucose,Whole Blood 249 mg/dL (75-99)
[2021-10-11] MEDS ORDERED: FUROSEMIDE 40 MG TAB PO SCH (21:00)
[2021-10-11] MEDS: PRAVASTATIN SODIUM 20 MG TAB PO SCH (21:50)
[2021-10-11] MEDS: allopurinoL 100 MG TAB PO SCH (21:50)
[2021-10-12] MEDS: POTASSIUM CHLORIDE ER 20 MEQ TAB.ER PO SCH ×2 (00:03→09:40)
[2021-10-12 06:32] LABS: Glucose,Whole Blood 155 mg/dL (75-99)
[2021-10-12] MEDS: INSULIN ASPART (NovoLOG) 100 UNIT/ML VIAL SQ SCH ×4 (06:37→21:07)
[2021-10-12] MEDS: IPRATROPIUM-ALBUTEROL 3 ML NEB INHALATION SCH ×4 (07:36→19:40)
[2021-10-12] MEDS: SYMBICORT 160-4.5 MCG INHALER INHALATION SCH ×2 (07:36→19:39)
[2021-10-12 07:48] LABS: ABG HCO3 38 mmol/L (21-25); ABG Oxygen Saturation 97.7 % (94-97); ABG PCO2 49 mmHg (35-45); ABG PO2 90 mmHg (83-108); ABG TCO2 40 mmol/L (19-24); Allen Test Performed? Yes
[2021-10-12] MEDS ORDERED: FUROSEMIDE 80 MG TAB PO SCH (09:00)
[2021-10-12] MEDS: FAMOTIDINE 20 MG TAB PO SCH (09:09)
[2021-10-12] MEDS: DILTIAZEM ORAL 30 MG TAB PO SCH ×2 (09:09→21:07)
[2021-10-12] MEDS: SILDENAFIL 20 MG TAB PO SCH ×3 (09:09→21:11)
[2021-10-12] MEDS: AMOXIC-POT CLAV 875-125MG 1 EACH TAB PO SCH ×2 (09:09→21:07)
[2021-10-12] MEDS: METOPROLOL TARTRATE 50 MG TAB PO SCH ×2 (09:10→21:07)
[2021-10-12] MEDS: predniSONE 50 MG TAB PO SCH (09:10)
[2021-10-12] MEDS: APIXABAN 5 MG TAB PO SCH ×2 (09:10→21:07)
[2021-10-12 10:10] LABS: Anisocytosis Slight; Basophils % (A) 0 %; Eosinophils % (A) 0 %; HGB 14.1 gm/dL (13.0-17.5); Lymphocytes # (A) 0.6 k/uL (1.0-4.8); Lymphocytes % (A) 4 %; MCH 28.8 pg (25.0-35.0); MCHC 32.1 g/dL (31.0-37.0); MCV 89.7 fL (80.0-100.0); Monocytes # (A) 0.5 k/uL (0-1.0); Monocytes % (A) 3 %; Neutrophils # (A) 14.5 k/uL (1.3-7.7); Neutrophils % (A) 93 %; Platelet Count 158 k/uL (150-450); RDW 16.2 % (11.5-15.5); WBC 15.7 k/uL (3.8-10.6)
[2021-10-12 10:17] LABS: Calcium 9.2 mg/dL (8.4-10.2); Potassium 3.3 mmol/L (3.5-5.1)
[2021-10-12] MEDS ORDERED: POTASSIUM CHLORIDE ER 20 MEQ TAB.ER PO STA (11:02)
--- NOTE | 2021-10-12 11:03 | P.PN ---
Subjective Progress Note Date: 10/12/21 Patient is a 75-year-old male with a past medical history of chronic diastolic heart failure, chronic hypoxic respiratory failure with home O2 at 2 L, COPD, persistent atrial fibrillation, chronic kidney disease stage III, hypertension, hyperlipidemia, severe obstructive sleep apnea on BiPAP, chronic gout, lymphedema who presents to the ED with shortness of breath. Patient was admitted about one month ago for similar symptoms. He was treated for CHF and COPD exacerbation. Patient states that after he was discharged he was doing well for 3-4 days but then gradually started to get worse. Patient states that he sleeps in a chair. He states that he cannot lay down flat. Patient states that he has been compliant with his medications and also his diet. His at bedside confirmed that patient has been compliant with his diet. Patient also reports that he is coughing up large yellow brownish sputum. Patient denies any fever or chills. Patient also denies any chest pain or palpitation. In the ED patient was 77% on 6 L nasal cannula. He was placed on BiPAP. Patient was also given 1 dose of IV Lasix 80 mg. Patient states that his breathing is getting better since he came in. Patient's chest x-ray consistent with volume overload. Patient's creatinine 1.7, potassium 2.4, lactic acid 2.1. 10/10/21: Patient states that his breathing is improving. He is currently on 4 L nasal cannula and is satting well. Patient's creatinine is increasing and is now up to 1.99. Patient's IV steroid has been decreased by pulmonology. Cardiology ordered echocardiogram with Doppler studies 10/11/21: Patient states that he is feeling much better since admission. His creatinine is up to 2.2. Satting well on 4 L nasal cannula. 10/12/21: Patient had some confusion last night. This morning patient is AAO 3 and is answering questions appropriately. He states that his shortness of breath is much better. Patient's renal function is also improving. Cardiology switched him to oral diuretics. Objective - Vital Signs Vital signs: Vital Signs Temp 96.6 F L 10/12/21 09:08 Pulse 81 10/12/21 09:08 Resp 22 10/12/21 09:08 BP 119/76 10/12/21 09:08 Pulse Ox 97 03/26/22 09:08 Intake & Output 10/11/21 10/12/21 10/12/21 18:59 06:59 18:59 Intake Total 660 30 728 Output Total 1200 1530 Balance -540 -1500 728 Weight 148.3 kg Intake: IV 20 30 10 Invasive Line 1 20 Invasive Line 2 30 10 Oral 640 718 Output: Urine 1200 1530 Other: Voiding Method Urinal Urinal Urinal # Voids 2 - Exam General examination - Alert and Oriented 3 in NAD Heart - + S1S2 no murmurs Lungs -diminished breath sounds bilaterally Abdomen soft NT ND +ve BS, morbidly obese Extremities -+1 pitting edema in bilateral lower extremity, discoloration in lower extremities [employer] - Moving all 4 extremities spontaneously Psych - Calm and cooperative - Labs CBC & Chem 7: 10/12/21 09:22 10/12/21 09:22 Labs: Abnormal Lab Results - Last 24 Hours (Table) 10/11/21 10/11/21 10/11/21 Range/Units 11:38 16:14 18:40 WBC (3.8-10.6) k/uL RDW (11.5-15.5) % Neutrophils # (1.3-7.7) k/uL Lymphocytes # (1.0-4.8) k/uL ABG pH 7.53 H (7.35-7.45) ABG pCO2 53 H (35-45) mmHg ABG pO2 68 L (83-108) mmHg ABG HCO3 44 H* (21-25) mmol/L ABG Total CO2 45 H (19-24) mmol/L ABG O2 Saturation (94-97) % Sodium (137-145) mmol/L Potassium (3.5-5.1) mmol/L Chloride (98-107) mmol/L Carbon Dioxide (22-30) mmol/L BUN (9-20) mg/dL Creatinine (0.66-1.25) mg/dL Glucose (74-99) mg/dL POC Glucose (mg/dL) 202 H 191 H (75-99) mg/dL 10/11/21 10/12/21 10/12/21 Range/Units 20:30 06:31 07:44 WBC (3.8-10.6) k/uL RDW (11.5-15.5) % Neutrophils # (1.3-7.7) k/uL Lymphocytes # (1.0-4.8) k/uL ABG pH 7.50 H (7.35-7.45) ABG pCO2 49 H (35-45) mmHg ABG pO2 (83-108) mmHg ABG HCO3 38 H (21-25) mmol/L ABG Total CO2 40 H (19-24) mmol/L ABG O2 Saturation 97.7 H (94-97) % Sodium (137-145) mmol/L Potassium (3.5-5.1) mmol/L Chloride (98-107) mmol/L Carbon Dioxide (22-30) mmol/L BUN (9-20) mg/dL Creatinine (0.66-1.25) mg/dL Glucose (74-99) mg/dL POC Glucose (mg/dL) 249 H 155 H (75-99) mg/dL 10/12/21 10/12/21 Range/Units 09:22 09:22 WBC 15.7 H (3.8-10.6) k/uL RDW 16.2 H (11.5-15.5) % Neutrophils # 14.5 H (1.3-7.7) k/uL Lymphocytes # 0.6 L (1.0-4.8) k/uL ABG pH (7.35-7.45) ABG pCO2 (35-45) mmHg ABG pO2 (83-108) mmHg ABG HCO3 (21-25) mmol/L ABG Total CO2 (19-24) mmol/L ABG O2 Saturation (94-97) % Sodium 133 L (137-145) mmol/L Potassium 3.3 L (3.5-5.1) mmol/L Chloride 86 L (98-107) mmol/L Carbon Dioxide 39 H (22-30) mmol/L BUN 57 H (9-20) mg/dL Creatinine 2.00 H (0.66-1.25) mg/dL Glucose 224 H (74-99) mg/dL POC Glucose (mg/dL) (75-99) mg/dL Microbiology - Last 24 Hours (Table) 10/09/21 15:15 Blood Culture - Preliminary Blood No Growth after 48 hours 10/09/21 15:00 Blood Culture - Preliminary Blood No Growth after 48 hours Assessment and Plan Assessment: Acute on chronic hypoxic respiratory failure secondary to combination of heart failure and COPD Acute on chronic diastolic heart failure Acute COPD exacerbation -DuoNeb, steroids -> taper down steroids -> will transition to oral steroids, Augmentin -Sliding-scale insulin since patient is on high-dose steroids -Cardiologypatient to home dose oral Lasix -Resume home dose metolazone -Keep potassium above 4 and magnesium above 2 -Resume Symbicort -Patient currently on 4 L nasal cannula. Wean O2 as tolerated. Patient's on 2 L home O2 -Cardiology and pulmonology on board -Check echocardiogram with Doppler study LUCIANA on CK D stage III -On admission creatinine is 1.7 -Baseline creatinine is around 1.2 -Likely etiology is cardiorenal syndrome -Monitor BMP -Improving Encephalopathy at night likely due to -Melatonin at bedtime -ABG negative for CO2 narcosis -During daytime patient is at his baseline. Hypokalemia -Replete aggressively Persistent atrial fibrillation -Resume Eliquis, Lopressor and Cardizem Hypertension -Resume home meds Hyperlipidemia -Resume statin Obstructive sleep apnea -BiPAP at nighttime Lymphedema -Stable Chronic gout -Resume allopurinol CODE STATUS:full code DPOA: DVT prophylaxis: Eliquis Anticipated length of stay: Discharge patient in nex 24 hours if creatinine continues to improve Anticipated discharge place: home
[2021-10-12 11:33] LABS: Glucose,Whole Blood 179 mg/dL (75-99)
--- NOTE | 2021-10-12 11:39 | P.PN ---
Subjective Progress Note Date: 10/12/21 Principal diagnosis: Acute exacerbation of CHF/COPD This is a 75-year-old white male with history of multiple medical problems including morbid obesity, chronic diastolic congestive heart failure, COPD, chronic atrial fibrillation, hypertension, chronic kidney disease, obstructive sleep apnea syndrome maintained on BiPAP at home. Patient was last admitted to the hospital on 09/04/2021, and he was discharged home on 09/07/2021. Back then he was treated for acute on chronic hypoxic respiratory failure secondary to acute on chronic diastolic congestive heart failure, acute exacerbation of COPD, acute tracheobronchitis. Patient was eventually discharged home. He was seen b juanefly yesterday in our office and he was in extreme respiratory distress, chest x-ray showed evidence of pulmonary edema. Patient was directed to come to the ER, evaluated briefly in the ER, seen by cardiology on consultation, patient was readmitted to the hospital, and this consult was initiated. Since yesterday, patient is feeling better breathing easier, apparently he has been receiving Lasix at 40 mg IV push every 8 hours. Patient was placed back on his usual bronchodilators, he is also on methylprednisolone, and back on his cardiac meds including Zaroxolyn,elquis, metoprolol, and diltiazem orally. When I evaluated the patient today, he is already feeling better breathing a lot easier. I reviewed his admission chest x-ray, it is clearly consistent with CHF. Labs showed relatively normal CBC his electrolytes showed low potassium, elevated BUN of 40 creatinine 1.99, baseline creatinine a month ago was 1.17 however his creatinine has been as high as 2.98 back around 2 years ago. On 10/11/2021 patient seen in follow-up on selective care unit, he is awake and alert, in no acute distress. On 4 L of oxygen and his pulse ox is 95-97%, he normally wears 3 L of oxygen on a regular basis, he remains on diuretics with Lasix, and he is maintaining negative fluid balance of 1042 mL over the last 24 hours. His proBNP is improved on today's labs and is down to 3440. He continues on Zaroxolyn on Thursday schedule. His IV steroids have been transitioned to oral prednisone, he continues on DuoNeb. Today's labs have been noted, white blood cell count is 16.5, hemoglobin is 14.1, sodium is 134, potassium is 3.5, chloride is 83, CO2 is 41, B1 is 62 creatinine is 2.21. The patient is seen today 10/12/2021 in follow-up on the selective care unit. He is currently sitting up in a chair at the bedside. Awake and alert in no acute distress. Breathing better today compared to yesterday. He is currently on or liters high flow nasal cannula with O2 saturation 97%. Continues with some faint crackles in the posterior bases. Blood cultures revealed no growth. White count 15.7. Hemoglobin 14.1. Sodium 133. Potassium 3.3. Bicarb 39. BUN 57. Creatinine 2.00. Glucose 224. Arterial blood gases on 36% FiO2 revealed a PaO2 of 90, pCO2 49, pH 7.50. He is continued on oral diuretics, oral antibiotics, prednisone. He remains on Symbicort and DuoNeb inhalations. He is anticoagulated with Eliquis. Objective - Vital Signs Vital signs: Vital Signs Temp 96.6 F L 10/12/21 09:08 Pulse 76 10/12/21 11:29 Resp 22 10/12/21 09:08 BP 119/76 10/12/21 09:08 Pulse Ox 97 10/12/21 09:08 Intake & Output 10/11/21 10/12/21 10/12/21 18:59 06:59 18:59 Intake Total 660 30 728 Output Total 1200 1530 Balance -540 -1500 728 Weight 148.3 kg Intake: IV 20 30 10 Invasive Line 1 20 Invasive Line 2 30 10 Oral 640 718 Output: Urine 1200 1530 Other: Voiding Method Urinal Urinal Urinal # Voids 2 - Exam GENERAL EXAM: Alert, very pleasant, morbidly obese 75-year-old male, currently on 4 L of oxygen pulse ox is 97% comfortable in no apparent distress. HEAD: Normocephalic/atraumatic. EYES: Normal reaction of pupils, equal size. Conjunctiva pink, sclera white. NOSE: Clear with pink turbinates. THROAT: No erythema or exudates. NECK: No masses, no JVD, no thyroid enlargement, no adenopathy. CHEST: No chest wall deformity. Symmetrical expansion. LUNGS: Equal air entry with crackles in the bilateral bases. CVS: Irregular rate and rhythm, normal S1 and S2, no gallops, no murmurs, no rubs ABDOMEN: Soft, nontender. No hepatosplenomegaly, normal bowel sounds, no guarding or rigidity. EXTREMITIES: No clubbing, no edema, no cyanosis, 2+ pulses and upper and lower extremities. MUSCULOSKELETAL: Muscle strength and tone normal. SPINE: No scoliosis or deformity SKIN: No rashes CENTRAL NERVOUS SYSTEM: No focal deficits, tone is normal in all 4 extremities. PSYCHIATRIC: Alert and oriented -3. Appropriate affect. Intact judgment and insight. - Labs CBC & Chem 7: 10/12/21 09:22 10/12/21 09:22 Labs: Abnormal Lab Results - Last 24 Hours (Table) 10/11/21 10/11/21 10/11/21 Range/Units 11:38 16:14 18:40 WBC (3.8-10.6) k/uL RDW (11.5-15.5) % Neutrophils # (1.3-7.7) k/uL Lymphocytes # (1.0-4.8) k/uL ABG pH 7.53 H (7.35-7.45) ABG pCO2 53 H (35-45) mmHg ABG pO2 68 L (83-108) mmHg ABG HCO3 44 H* (21-25) mmol/L ABG Total CO2 45 H (19-24) mmol/L ABG O2 Saturation (94-97) % Sodium (137-145) mmol/L Potassium (3.5-5.1) mmol/L Chloride (98-107) mmol/L Carbon Dioxide (22-30) mmol/L BUN (9-20) mg/dL Creatinine (0.66-1.25) mg/dL Glucose (74-99) mg/dL POC Glucose (mg/dL) 202 H 191 H (75-99) mg/dL 10/11/21 10/12/21 10/12/21 Range/Units 20:30 06:31 07:44 WBC (3.8-10.6) k/uL RDW (11.5-15.5) % Neutrophils # (1.3-7.7) k/uL Lymphocytes # (1.0-4.8) k/uL ABG pH 7.50 H (7.35-7.45) ABG pCO2 49 H (35-45) mmHg ABG pO2 (83-108) mmHg ABG HCO3 38 H (21-25) mmol/L ABG Total CO2 40 H (19-24) mmol/L ABG O2 Saturation 97.7 H (94-97) % Sodium (137-145) mmol/L Potassium (3.5-5.1) mmol/L Chloride (98-107) mmol/L Carbon Dioxide (22-30) mmol/L BUN (9-20) mg/dL Creatinine (0.66-1.25) mg/dL Glucose (74-99) mg/dL POC Glucose (mg/dL) 249 H 155 H (75-99) mg/dL 10/12/21 10/12/21 Range/Units 09:22 09:22 WBC 15.7 H (3.8-10.6) k/uL RDW 16.2 H (11.5-15.5) % Neutrophils # 14.5 H (1.3-7.7) k/uL Lymphocytes # 0.6 L (1.0-4.8) k/uL ABG pH (7.35-7.45) ABG pCO2 (35-45) mmHg ABG pO2 (83-108) mmHg ABG HCO3 (21-25) mmol/L ABG Total CO2 (19-24) mmol/L ABG O2 Saturation (94-97) % Sodium 133 L (137-145) mmol/L Potassium 3.3 L (3.5-5.1) mmol/L Chloride 86 L (98-107) mmol/L Carbon Dioxide 39 H (22-30) mmol/L BUN 57 H (9-20) mg/dL Creatinine 2.00 H (0.66-1.25) mg/dL Glucose 224 H (74-99) mg/dL POC Glucose (mg/dL) (75-99) mg/dL Microbiology - Last 24 Hours (Table) 10/09/21 15:15 Blood Culture - Preliminary Blood No Growth after 48 hours 10/09/21 15:00 Blood Culture - Preliminary Blood No Growth after 48 hours Assessment and Plan Assessment: 1 Acute on chronic hypoxic respiratory failure secondary to acute on chronic diastolic CHF and underlying COPD 2 Chronic A. fib on Eliquis 3 Chronic kidney disease stage III 4 Benign essential hypertension 5 Obstructive sleep apnea on home CPAP 6 Chronic venous stasis 7 Chronic gout 8 GERD without esophagitis 9 Morbid obesity with BMI 45.6 10 History of MRSA infection on the buttocks requiring incision and drainage back in 2018 11 History of degenerative joint disease Plan: The patient was seen and evaluated Labs reviewed Echocardiogram pending Continues on bronchodilators, antibiotics, steroids Continued on diuretics Follow-up chest x-ray in a.m. Possibly home in a.m. We will continue to follow I have personally seen and examined the patient, performed the documentation and the assessment and plan as written. Number of minutes spent on the visit: 10.
--- NOTE | 2021-10-12 12:07 | P.NPCON ---
History of Present Illness - Reason for Consult acute renal failure - Chief Complaint Acute kidney injury - History of Present Illness This is a 75-year-old male seen in consultation because of acute kidney injury, he is known with chronic kidney disease creatinine is 1.17 on 09/07/2021 and went up to 2.21 and improved to 2 this morning. His sodium is 133 and potassium is 3.3 and bicarb is 39 He came in because of shortness of breath and edema He has been diuresed. Urine output was 2730 last 24 hours. He is eating better less short of breath he is on oxygen nasal cannula. At home he uses nasal cannula No dizziness on standing up nausea vomiting good appetite no diarrhea. No dysuria frequency hematuria. He is known with atrial fibrillation and COPD congestive heart failure prostatism sleep apnea cannot tolerate the BiPAP but uses oxygen Past Medical History Past Medical History: Atrial Fibrillation, Heart Failure, COPD, GERD/Reflux, Hyperlipidemia, Hypertension, Osteoarthritis (OA), Pneumonia, Prostate Disorder, Renal Disease, Sleep Apnea/CPAP/BIPAP, Vascular Disorder Additional Past Medical History / Comment(s): Acute respiratory failure secondary to interstitial pneumonia/sepsis/CHF, chronic lower extremity edema/discoloration, venous insufficiency, CHLOE uses CPAP on occasion, chronic low back pain, generalized arthritis, gout bilateral feet, 2018 MRSA infection R buttock with sepsis. History of Any Multi-Drug Resistant Organisms: MRSA Date of last positivie culture/infection: 04/08/18 MDRO Source:: buttock wound Past Surgical History: Cholecystectomy, Heart Catheterization, Joint Replacement Additional Past Surgical History / Comment(s): 02/19/17 diagnostic cardiac cath, bilateral total knee arthroplasty, ventral hernia repair, colonoscopies, I&D R buttock. Past Anesthesia/Blood Transfusion Reactions: No Reported Reaction Past Psychological History: No Psychological Hx Reported Additional Psychological History / Comment(s): Pt resides with his spouse. He uses a cane/walker prn, He has a nebulizer. He drives. Smoking Status: Former smoker Past Alcohol Use History: None Reported Additional Past Alcohol Use History / Comment(s): Pt started smoking in 1962 and quit in 1977. He used to drink 3-4 beers per day but now only drinks on holidays. Past Drug Use History: None Reported - Past Family History Father Family Medical History: CVA/TIA Additional Family Medical History / Comment(s): Dad at age 89 from stroke. Mother Family Medical History: Dementia Additional Family Medical History / Comment(s): Mother is alive at age 90 with dementia. Sister(s) Additional Family Medical History / Comment(s): Patient has 2 sisters with no major medical problems. Patient does not have any brothers. Patient has 2 adult children with no major medical problems. Medications and Allergies Home Medications Medication Instructions Recorded Confirmed Type Potassium Chloride [Klor-Con 10 ER] 10 meq PO W/SUPPER 12/10/15 10/09/21 History Pravastatin Sodium [Pravachol] 20 mg PO HS 12/10/15 10/09/21 History allopurinoL [Zyloprim] 100 mg PO HS 12/10/15 10/09/21 History Colchicine [Colcrys] 0.6 mg PO DAILY 09/27/16 10/09/21 History Albuterol Sulfate [Albuterol 2 puff INHALATION RT-DAILY 11/18/19 10/09/21 History Sulfate Hfa] Budesonide-Formot 160-4.5 Mcg 2 puff INHALATION RT-BID #1 puff 12/18/19 10/09/21 Rx [Symbicort 160-4.5 Mcg Inhaler] Famotidine [Pepcid] 20 mg PO DAILY #30 tab 12/18/19 10/09/21 Rx Apixaban [Eliquis] 5 mg PO BID 10/01/20 10/09/21 History Metoprolol Tartrate [Lopressor] 150 mg PO BID 10/01/20 10/09/21 History Sildenafil [Revatio] 20 mg PO TID 10/01/20 10/09/21 History Furosemide [Lasix] 80 mg PO DAILY #145 tab 10/05/20 10/09/21 Rx Furosemide [Lasix] 40 mg PO HS 09/04/21 10/09/21 History dilTIAZem HCL 90 mg PO BID 09/04/21 10/09/21 History Gabapentin [Neurontin] 100 mg PO DAILY 10/09/21 10/09/21 History Ipratropium-Albuterol Nebulize 3 ml INHALATION RT-TID 10/09/21 10/09/21 History [Duoneb 0.5 mg-3 mg/3 ml Soln] metOLazone 2.5 mg PO MOWEFR 10/09/21 10/09/21 History Allergies Allergy/AdvReac Type Severity Reaction Status Date / Time No Known Allergies Allergy Verified 10/09/21 17:04 Physical Exam Vitals: Vital Signs Temp Pulse Pulse Resp BP Pulse Ox 10/12/21 11:29 76 10/12/21 11:13 79 10/12/21 09:08 96.6 F L 81 22 119/76 97 10/12/21 08:00 85 10/12/21 07:45 92 10/12/21 04:00 98.0 F 79 18 114/68 96 10/12/21 00:00 97.6 F 78 18 127/78 95 10/11/21 20:00 97.8 F 90 18 139/75 93 L 10/11/21 19:43 99 10/11/21 19:30 95 10/11/21 16:00 97.2 F L 95 18 122/70 95 10/11/21 15:37 72 10/11/21 15:29 96 10/11/21 15:27 68 10/11/21 14:00 18 10/11/21 12:00 97.7 F 77 18 96/64 94 L Intake and Output 10/11/21 10/12/21 10/12/21 22:59 06:59 14:59 Intake Total 280 10 728 Output Total 2350 380 Balance -2070 -370 728 Intake: IV 20 10 10 Invasive Line 2 20 10 10 Oral 260 718 Output: Urine 2350 380 Other: Voiding Method Urinal Urinal Urinal Weight 148.3 kg Exams and awake alert oriented sitting in a chair on nasal cannula. HEENT exam no JVP neck is supple no facial asymmetry Lungs are clear to auscultation fair air entry bilaterally Heart sounds unremarkable for any murmur rub gallop Abdomen soft obese difficult exam and pelvic exam is chronic stasis hyperpigmented skin with edema Neurologically awake alert oriented Results - Lab Results Most recent lab results ABG pH 7.50 (7.35-7.45) H 10/12/21 07:44 ABG pCO2 49 mmHg (35-45) H 10/12/21 07:44 ABG pO2 90 mmHg (83-108) 10/12/21 07:44 ABG HCO3 38 mmol/L (21-25) H 10/12/21 07:44 ABG O2 Saturation 97.7 % (94-97) H 10/12/21 07:44 Calcium 9.2 mg/dL (8.4-10.2) 10/12/21 09:22 Magnesium 2.0 mg/dL (1.6-2.3) 10/12/21 09:22 10/12/21 09:22 10/12/21 09:22 Assessment and Plan Assessment: Impression 1. Acute kidney injury secondary to cardiorenal syndrome. Creatinine baseline 1.7 on admission on 10/09/2021 went up to 2.2 and then improved to 2 as of this morning responding to diuresis. 2. Hypokalemia secondary to diuresis 3 hyponatremia secondary to diuresis 4. Metabolic alkalosis with bicarb of 39 because of diuresis 5. Blood gases show Respiratory acidosis, secondary to COPD 6. Chronic stasis edema. 7. COPD, atrial fibrillation, obstructive sleep apnea Recommendation 1. Check orthostatic changes 2. Reduce Lasix to 40 twice a day. Currently he is on 80 in the morning and 40 in the evening, and this is because of the metabolic alkalosis. 3. Replace potassium he'll require extensive milliequivalents 4. Hyponatremia expected to improve with the reduction in Lasix and replacement of potassium. thank you for this consultation and we'll continue to follow closely
[2021-10-12] MEDS ORDERED: POTASSIUM CHLORIDE ER 20 MEQ TAB.ER PO ONE (14:00)
[2021-10-12] MEDS: FUROSEMIDE 20 MG TAB PO SCH (15:33)
--- NOTE | 2021-10-12 15:36 | P.PN ---
Subjective Progress Note Date: 10/12/21 PROGRESS NOTE The patient is a 75-year-old male with a known history of atrial fibrillation, chronic obstructive disease, obesity who presented with symptoms of progressive dyspnea. He's feeling much better at this time. He denies any chest discomfort, dizziness or palpitations. He continues to be on Lasix 20 mg twice a day, Zaroxolyn 3 times a week, metoprolol 150 mg twice a day, pravastatin, revatio 20 mg 3 times a day, Eliquis 5 mg twice a day. PHYSICAL EXAMINATION: Blood pressure 119/70 heart rate 80 LUNGS: Clear with no wheezes and decreased air exchange HEART: [Irregular rate and rhythm, S1, S2. No S3. systolic murmur, ejection type] ABDOMEN: [Soft, nontender, no organomegaly obese] EXTREMETIES: [1+ edema with chronic skin changes] LAB: BUN 57, creatinine 2.0, potassium 3.3, pH 7.5 IMPRESSION: 1. Dyspnea with CHF and preserved systolic function with COPD 2. Chronic kidney disease 3. Chronic persistent atrial fibrillation, anticoagulated 4. Morbid obesity PLAN: 1. His diuretics has been adjusted by nephrology 2. Encouraged the use of CPAP 3. Increase physical activity 4. Follow renal functions Objective - Vital Signs Vital signs: Vital Signs Temp 97.6 F 10/12/21 12:30 Pulse 65 10/12/21 12:30 Resp 22 10/12/21 12:30 BP 96/65 10/12/21 12:30 Pulse Ox 94 L 10/12/21 12:30 Intake & Output 10/11/21 10/12/21 10/12/21 18:59 06:59 18:59 Intake Total 660 30 968 Output Total 1200 1530 Balance -540 -1500 968 Weight 148.3 kg Intake: IV 20 30 10 Invasive Line 1 20 Invasive Line 2 30 10 Oral 640 958 Output: Urine 1200 1530 Other: Voiding Method Urinal Urinal Urinal # Voids 2 - Labs CBC & Chem 7: 10/12/21 09:22 10/12/21 09:22 Labs: Abnormal Lab Results - Last 24 Hours (Table) 10/11/21 10/11/21 10/11/21 Range/Units 16:14 18:40 20:30 WBC (3.8-10.6) k/uL RDW (11.5-15.5) % Neutrophils # (1.3-7.7) k/uL Lymphocytes # (1.0-4.8) k/uL ABG pH 7.53 H (7.35-7.45) ABG pCO2 53 H (35-45) mmHg ABG pO2 68 L (83-108) mmHg ABG HCO3 44 H* (21-25) mmol/L ABG Total CO2 45 H (19-24) mmol/L ABG O2 Saturation (94-97) % Sodium (137-145) mmol/L Potassium (3.5-5.1) mmol/L Chloride (98-107) mmol/L Carbon Dioxide (22-30) mmol/L BUN (9-20) mg/dL Creatinine (0.66-1.25) mg/dL Glucose (74-99) mg/dL POC Glucose (mg/dL) 191 H 249 H (75-99) mg/dL 10/12/21 10/12/21 10/12/21 Range/Units 06:31 07:44 09:22 WBC (3.8-10.6) k/uL RDW (11.5-15.5) % Neutrophils # (1.3-7.7) k/uL Lymphocytes # (1.0-4.8) k/uL ABG pH 7.50 H (7.35-7.45) ABG pCO2 49 H (35-45) mmHg ABG pO2 (83-108) mmHg ABG HCO3 38 H (21-25) mmol/L ABG Total CO2 40 H (19-24) mmol/L ABG O2 Saturation 97.7 H (94-97) % Sodium 133 L (137-145) mmol/L Potassium 3.3 L (3.5-5.1) mmol/L Chloride 86 L (98-107) mmol/L Carbon Dioxide 39 H (22-30) mmol/L BUN 57 H (9-20) mg/dL Creatinine 2.00 H (0.66-1.25) mg/dL Glucose 224 H (74-99) mg/dL POC Glucose (mg/dL) 155 H (75-99) mg/dL 10/12/21 10/12/21 Range/Units 09:22 11:31 WBC 15.7 H (3.8-10.6) k/uL RDW 16.2 H (11.5-15.5) % Neutrophils # 14.5 H (1.3-7.7) k/uL Lymphocytes # 0.6 L (1.0-4.8) k/uL ABG pH (7.35-7.45) ABG pCO2 (35-45) mmHg ABG pO2 (83-108) mmHg ABG HCO3 (21-25) mmol/L ABG Total CO2 (19-24) mmol/L ABG O2 Saturation (94-97) % Sodium (137-145) mmol/L Potassium (3.5-5.1) mmol/L Chloride (98-107) mmol/L Carbon Dioxide (22-30) mmol/L BUN (9-20) mg/dL Creatinine (0.66-1.25) mg/dL Glucose (74-99) mg/dL POC Glucose (mg/dL) 179 H (75-99) mg/dL Microbiology - Last 24 Hours (Table) 10/09/21 15:15 Blood Culture - Preliminary Blood No Growth after 48 hours 10/09/21 15:00 Blood Culture - Preliminary Blood No Growth after 48 hours
[2021-10-12 16:20] LABS: Glucose,Whole Blood 201 mg/dL (75-99)
[2021-10-12 20:56] LABS: Glucose,Whole Blood 192 mg/dL (75-99)
[2021-10-12] MEDS: allopurinoL 100 MG TAB PO SCH (21:07)
[2021-10-12] MEDS: PRAVASTATIN SODIUM 20 MG TAB PO SCH (21:07)
[2021-10-13 06:37] LABS: Glucose,Whole Blood 167 mg/dL (75-99)
[2021-10-13] MEDS: INSULIN ASPART (NovoLOG) 100 UNIT/ML VIAL SQ SCH ×2 (07:02→11:37)
[2021-10-13] MEDS: IPRATROPIUM-ALBUTEROL 3 ML NEB INHALATION SCH ×3 (08:06→15:47)
[2021-10-13] MEDS: SYMBICORT 160-4.5 MCG INHALER INHALATION SCH (08:06)
[2021-10-13 08:14] LABS: Anisocytosis Slight; HCT 42.7 % (39.0-53.0); HGB 14.1 gm/dL (13.0-17.5); MCH 29.4 pg (25.0-35.0); MCHC 32.9 g/dL (31.0-37.0); MCV 89.5 fL (80.0-100.0); Mean Platelet Volume 7.5; Platelet Count 153 k/uL (150-450); RBC 4.78 m/uL (4.30-5.90); RDW 16.1 % (11.5-15.5); WBC 14.4 k/uL (3.8-10.6)
[2021-10-13 08:31] LABS: Calcium 9.3 mg/dL (8.4-10.2); Magnesium 2.1 mg/dL (1.6-2.3); Potassium 3.2 mmol/L (3.5-5.1)
[2021-10-13] MEDS: predniSONE 50 MG TAB PO SCH (08:41)
[2021-10-13] MEDS: DILTIAZEM ORAL 30 MG TAB PO SCH (08:41)
[2021-10-13] MEDS: SILDENAFIL 20 MG TAB PO SCH (08:41)
[2021-10-13] MEDS: FAMOTIDINE 20 MG TAB PO SCH (08:41)
[2021-10-13] MEDS: AMOXIC-POT CLAV 875-125MG 1 EACH TAB PO SCH (08:41)
[2021-10-13] MEDS: FUROSEMIDE 20 MG TAB PO SCH (08:41)
[2021-10-13] MEDS: METOPROLOL TARTRATE 50 MG TAB PO SCH (08:41)
[2021-10-13] MEDS: POTASSIUM CHLORIDE ER 20 MEQ TAB.ER PO SCH ×3 (08:42→12:22)
[2021-10-13] MEDS: APIXABAN 5 MG TAB PO SCH (08:42)
[2021-10-13 08:45] VITALS: RESP 18; TEMP 97.3
--- NOTE | 2021-10-13 11:05 | P.PN ---
Subjective Progress Note Date: 10/13/21 Principal diagnosis: This 76-year-old male seen in consultation because of acute kidney injury secondary to cardiorenal syndrome creatinine baseline 1.7 on admission went up to 2.2 and then improved to 2 as of yesterday. Patient is on Lasix, I reduce his dose yesterday because of the metabolic alkalosis with bicarb of 39. Was also hypokalemic secondary to diuresis and hyponatremic, sodium was 133 potassium was 3.3. He is vital signs are stable, although sometimes blood pressure is low in the 90s Urine output is documented at 28 75 mL Lasix 20 by mouth twice a day, although at home was on 80 mg and 40 mg daily he claims that he was very compliant He has significant edema with chronic stasis and currently is on Cardizem that may be adding to her edema his creatinine has slowly improved from peak of 2.21- 1.97 as of this morning If sodium remains low at 132 and potassium is 3.2 this morning with a bicarb of 38 - related to the diuretics Objective - Vital Signs Vital signs: Vital Signs Temp 97.3 F L 10/13/21 08:44 Pulse 85 10/13/21 08:45 Resp 18 10/13/21 08:44 BP 110/79 10/13/21 08:44 Pulse Ox 97 10/13/21 08:44 Intake & Output 10/12/21 10/13/21 10/13/21 18:59 06:59 18:59 Intake Total 1086 10 430 Output Total 1825 1050 350 Balance -739 -1040 80 Weight 148.2 kg Intake: IV 10 10 10 Invasive Line 2 10 10 10 Oral 1076 420 Output: Urine 1825 1050 350 Other: Voiding Method Urinal Urinal Urinal # Voids 5 1 Awake alert oriented comfortable HEENT exam no JVP Lungs are clear to auscultation fair air entry bilaterally Heart sounds atrial fibrillation. Abdomen obese nontender protuberant Extremity exam was chronic stasis edema with dark pigmented skin Neurologically awake alert oriented - Labs CBC & Chem 7: 10/13/21 07:48 10/13/21 07:48 Labs: Abnormal Lab Results - Last 24 Hours (Table) 10/12/21 10/12/21 10/12/21 Range/Units 11:31 16:18 20:36 WBC (3.8-10.6) k/uL RDW (11.5-15.5) % Sodium (137-145) mmol/L Potassium (3.5-5.1) mmol/L Chloride (98-107) mmol/L Carbon Dioxide (22-30) mmol/L BUN (9-20) mg/dL Creatinine (0.66-1.25) mg/dL Glucose (74-99) mg/dL POC Glucose (mg/dL) 179 H 201 H 192 H (75-99) mg/dL 10/13/21 10/13/21 10/13/21 Range/Units 06:14 07:48 07:48 WBC 14.4 H (3.8-10.6) k/uL RDW 16.1 H (11.5-15.5) % Sodium 132 L (137-145) mmol/L Potassium 3.2 L (3.5-5.1) mmol/L Chloride 86 L (98-107) mmol/L Carbon Dioxide 38 H (22-30) mmol/L BUN 61 H (9-20) mg/dL Creatinine 1.97 H (0.66-1.25) mg/dL Glucose 179 H (74-99) mg/dL POC Glucose (mg/dL) 167 H (75-99) mg/dL Microbiology - Last 24 Hours (Table) 10/09/21 15:00 Blood Culture - Preliminary Blood No Growth after 72 hours 10/09/21 15:15 Blood Culture - Preliminary Blood No Growth after 72 hours Assessment and Plan Assessment: Impression 1. Acute kidney injury secondary to cardiorenal syndrome. Creatinine baseline 1.7 on admission on 10/09/2021 went up to 2.2 and then improved to 2 as of this morning responding to diuresis. He has chronic kidney disease with creatinine 1.17 dated 09/07/2021. 2. Hypokalemia secondary to diuresis 3 hyponatremia secondary to diuresis 4. Metabolic alkalosis with bicarb of 39 because of diuresis 5. Blood gases show Respiratory acidosis, secondary to COPD 6. Chronic stasis edema. Severe tricuspid regurgitation and moderate to severe pulmonary hypertension with systolic pressure on the right ventricular is 57 by echocardiogram dated 2019 7. COPD, atrial fibrillation, obstructive sleep apnea Recommendation 1. We will change Lasix to torsemide 40 mg. 2. On discharge we'll follow him up within 3 days, he can be seen on Thursday in our office. 3. He has been instructed to have his blood pressure heart rate and made done daily as well as urine output. He is to bring those records to our office 4. Need potassium replaced He will need 80 mEq today 5. We'll start him on Aldactone 25 g a day to conserve his potassium also to add to the diuretics 6. Expect his sodium to improve 7. Watch metabolic alkalosis
[2021-10-13] MEDS ORDERED: TORSEMIDE 20 MG TAB PO SCH (11:15)
[2021-10-13] MEDS ORDERED: SPIRONOLACTONE 25 MG TAB PO SCH (11:15)
[2021-10-13 11:19] LABS: Glucose,Whole Blood 133 mg/dL (75-99)
[2021-10-13 11:30] VITALS: BP 120/81; PULSE 70
--- NOTE | 2021-10-13 12:49 | P.PN ---
Subjective Progress Note Date: 10/13/21 Principal diagnosis: Acute on chronic hypoxic history failure secondary to chronic diastolic congestive heart failure and underlying COPD This is a 75-year-old white male with history of multiple medical problems including morbid obesity, chronic diastolic congestive heart failure, COPD, chronic atrial fibrillation, hypertension, chronic kidney disease, obstructive sleep apnea syndrome maintained on BiPAP at home. Patient was last admitted to the hospital on 09/04/2021, and he was discharged home on 09/07/2021. Back then he was treated for acute on chronic hypoxic respiratory failure secondary to acute on chronic diastolic congestive heart failure, acute exacerbation of COPD, acute tracheobronchitis. Patient was eventually discharged home. He was seen briefly yesterday in our office and he was in extreme respiratory distress, chest x-ray showed evidence of pulmonary edema. Patient was directed to come to the ER, evaluated briefly in the ER, seen by cardiology on consultation, patient was readmitted to the hospital, and this consult was initiated. Since yesterd ay, patient is feeling better breathing easier, apparently he has been receiving Lasix at 40 mg IV push every 8 hours. Patient was placed back on his usual bronchodilators, he is also on methylprednisolone, and back on his cardiac meds including Zaroxolyn,elquis, metoprolol, and diltiazem orally. When I evaluated the patient today, he is already feeling better breathing a lot easier. I reviewed his admission chest x-ray, it is clearly consistent with CHF. Labs showed relatively normal CBC his electrolytes showed low potassium, elevated BUN of 40 creatinine 1.99, baseline creatinine a month ago was 1.17 however his creatinine has been as high as 2.98 back around 2 years ago. On 10/11/2021 patient seen in follow-up on selective care unit, he is awake and alert, in no acute distress. On 4 L of oxygen and his pulse ox is 95-97%, he normally wears 3 L of oxygen on a regular basis, he remains on diuretics with Lasix, and he is maintaining negative fluid balance of 1042 mL over the last 24 hours. His proBNP is improved on today's labs and is down to 3440. He continues on Zaroxolyn on Thursday schedule. His IV steroids have been transitioned to oral prednisone, he continues on DuoNeb. Today's labs have been noted, white blood cell count is 16.5, hemoglobin is 14.1, sodium is 134, potassium is 3.5, chloride is 83, CO2 is 41, B1 is 62 creatinine is 2.21. The patient is seen today 10/12/2021 in follow-up on the selective care unit. He is currently sitting up in a chair at the bedside. Awake and alert in no acute distress. Breathing better today compared to yesterday. He is currently on or liters high flow nasal cannula with O2 saturation 97%. Continues with some faint crackles in the posterior bases. Blood cultures revealed no growth. White count 15.7. Hemoglobin 14.1. Sodium 133. Potassium 3.3. Bicarb 39. BUN 57. Creatinine 2.00. Glucose 224. Arterial blood gases on 36% FiO2 revealed a PaO2 of 90, pCO2 49, pH 7.50. He is continued on oral diuretics, oral antibiotics, prednisone. He remains on Symbicort and DuoNeb inhalations. He is anticoagulated with Eliquis. Reevaluated today on 10/13/2021, patient is doing well, he is only on 2 L nasal cannula, O2 sats is 97%. Hardly any cough no wheezing no shortness of breath. Electrolytes are normal except for low potassium of 3.2, BUN is 61 creatinine 1.97 that he be scheduled 14.4 hemoglobin 14.1. Follow-up chest x-ray is pending this was ordered to be done tomorrow Objective - Vital Signs Vital signs: Vital Signs Temp 97.3 F L 10/13/21 08:44 Pulse 70 10/13/21 11:29 Resp 18 10/13/21 11:29 BP 120/81 10/13/21 11:29 Pulse Ox 97 10/13/21 11:29 Intake & Output 10/12/21 10/13/21 10/13/21 18:59 06:59 18:59 Intake Total 1086 10 430 Output Total 1825 1050 350 Balance -739 -1040 80 Weight 148.2 kg Intake: IV 10 10 10 Invasive Line 2 10 10 10 Oral 1076 420 Output: Urine 1825 1050 350 Other: Voiding Method Urinal Urinal Urinal # Voids 5 1 - Exam Physical Exam: Revealed 75-year-old white male in no distress, presently on 2 L nasal cannula. Head: Atraumatic normocephalic. HEENT:[Neck is supple.] [No neck masses.] [No thyromegaly.] [No JVD.] Patient has short obese neck. PERRLA, EOMI, anicteric. Chest: [Symmetrical chest expansion 5 crackles at the bases no rhonchi and no wheezes] Cardiac Exam: Irregular irregular rhythm, distant S1 and S2, no S3 gallop, 2/6 systolic murmur thought the precordium. Abdomen: [Obese, Soft, nontender, no megaly, no rebound, no guarding, normal bowel sounds.] Extremities: Chronic venous stasis changes noted in both lower extremities, 1+ bipedal edema. Diminished distal pulses. Neurological Exam: [No focal neurologic deficit.] Alert and oriented 3. Psychiatric: Normal mood, affect and normal mental status examination. Skin: No rashes, however he does have chronic venous stasis changes noted in lower extremities. Musculoskeletal: No deformities and no limitation in range of motion. - Labs CBC & Chem 7: 10/13/21 07:48 10/13/21 07:48 Labs: Abnormal Lab Results - Last 24 Hours (Table) 10/12/21 10/12/21 10/13/21 Range/Units 16:18 20:36 06:14 WBC (3.8-10.6) k/uL RDW (11.5-15.5) % Sodium (137-145) mmol/L Potassium (3.5-5.1) mmol/L Chloride (98-107) mmol/L Carbon Dioxide (22-30) mmol/L BUN (9-20) mg/dL Creatinine (0.66-1.25) mg/dL Glucose (74-99) mg/dL POC Glucose (mg/dL) 201 H 192 H 167 H (75-99) mg/dL 10/13/21 10/13/21 10/13/21 Range/Units 07:48 07:48 11:17 WBC 14.4 H (3.8-10.6) k/uL RDW 16.1 H (11.5-15.5) % Sodium 132 L (137-145) mmol/L Potassium 3.2 L (3.5-5.1) mmol/L Chloride 86 L (98-107) mmol/L Carbon Dioxide 38 H (22-30) mmol/L BUN 61 H (9-20) mg/dL Creatinine 1.97 H (0.66-1.25) mg/dL Glucose 179 H (74-99) mg/dL POC Glucose (mg/dL) 133 H (75-99) mg/dL Microbiology - Last 24 Hours (Table) 10/09/21 15:00 Blood Culture - Preliminary Blood No Growth after 72 hours 10/09/21 15:15 Blood Culture - Preliminary Blood No Growth after 72 hours Assessment and Plan Assessment: Impression: Acute on chronic hypoxic respiratory failure secondary mostly to acute on chronic diastolic heart failure and underlying COPD Chronic atrial fibrillation Chronic kidney disease stage III Benign essential hypertension Obstructive sleep apnea syndrome, on home CPAP. Chronic venous stasis changes Chronic gout GERD without esophagitis Morbid obesity BMI of 45.2 History of MRSA infection/buttocks, requiring incision and drainage back in 2018. History of degenerative joint disease Recommendation: Continue diuretics Continue oxygen and titrate accordingly Continue BiPAP at bedside. And use as needed Continue bronchodilators Continue GI and DVT prophylaxis. Follow-up chest x-ray in a.m., Consider discharge planning tomorrow We'll continue to follow. Time with Patient: Less than 30
--- NOTE | 2021-10-13 13:07 | P.PN ---
Subjective Progress Note Date: 10/13/21 This is a 75-year-old male patient with a known history of atrial fibrillation, chronic obstructive pulmonary disease, obesity. Presented with symptoms of progressive dyspnea. He is feeling quite a bit better today. Denies any chest discomfort, dizziness or palpitations. He is edema as close to his baseline. His breathing has improved. He is currently on Eliquis I milligrams by mouth twice a day, Cardizem 90 mg by mouth twice a day, metolazone 2.5 mg 3 days a week, metoprolol tartrate 150 mg by mouth twice a day, pravastatin, Aldactone 25 mg by mouth daily, torsemide 40 mg by mouth daily and Revatio 20 mg by mouth 3 times a day. Vital signs are stable. Labs show a BUN of 61 and creatinine of 1.97 Objective - Vital Signs Vital signs: Vital Signs Temp 97.3 F L 10/13/21 08:44 Pulse 70 10/13/21 11:29 Resp 18 10/13/21 11:29 BP 120/81 10/13/21 11:29 Pulse Ox 97 10/13/21 11:29 Intake & Output 10/12/21 10/13/21 10/13/21 18:59 06:59 18:59 Intake Total 1086 10 430 Output Total 1825 1050 350 Balance -739 -1040 80 Weight 148.2 kg Intake: IV 10 10 10 Invasive Line 2 10 10 10 Oral 1076 420 Output: Urine 1825 1050 350 Other: Voiding Method Urinal Urinal Urinal # Voids 5 1 - Exam PHYSICAL EXAMINATION: HEENT: Head is atraumatic, normocephalic. Pupils equal, round. Neck is supple. There is no elevated jugular venous pressure. HEART EXAMINATION: Heart sounds are regular rate and rhythm, S1 and S2 normal. Systolic murmur. CHEST EXAMINATION: Lungs reveal diminished air entry bilaterally. No chest wall tenderness is noted on palpation or with deep breathing. ABDOMEN: Soft, nontender. Bowel sounds are heard. No organomegaly noted. EXTREMITIES: 1+ edema with chronic skin changes. NEUROLOGIC patient is awake, alert and oriented x3. . - Labs CBC & Chem 7: 10/13/21 07:48 10/13/21 07:48 Labs: Abnormal Lab Results - Last 24 Hours (Table) 10/12/21 10/12/21 10/13/21 Range/Units 16:18 20:36 06:14 WBC (3.8-10.6) k/uL RDW (11.5-15.5) % Sodium (137-145) mmol/L Potassium (3.5-5.1) mmol/L Chloride (98-107) mmol/L Carbon Dioxide (22-30) mmol/L BUN (9-20) mg/dL Creatinine (0.66-1.25) mg/dL Glucose (74-99) mg/dL POC Glucose (mg/dL) 201 H 192 H 167 H (75-99) mg/dL 10/13/21 10/13/21 10/13/21 Range/Units 07:48 07:48 11:17 WBC 14.4 H (3.8-10.6) k/uL RDW 16.1 H (11.5-15.5) % Sodium 132 L (137-145) mmol/L Potassium 3.2 L (3.5-5.1) mmol/L Chloride 86 L (98-107) mmol/L Carbon Dioxide 38 H (22-30) mmol/L BUN 61 H (9-20) mg/dL Creatinine 1.97 H (0.66-1.25) mg/dL Glucose 179 H (74-99) mg/dL POC Glucose (mg/dL) 133 H (75-99) mg/dL Microbiology - Last 24 Hours (Table) 10/09/21 15:00 Blood Culture - Preliminary Blood No Growth after 72 hours 10/09/21 15:15 Blood Culture - Preliminary Blood No Growth after 72 hours Assessment and Plan Assessment: 1. Dyspnea with CHF and preserved systolic function with COPD 2. Chronic kidney disease 3. Chronic persistent atrial fibrillation, anticoagulated 4. Morbid obesity Plan: From cardiology's perspective medications were reviewed and we will continue the same. Diuretics are being adjusted by nephrology. Continue to encourage use of CPAP. Increase physical activity as tolerated. Continue to follow renal function and electrolytes. We will continue to follow the patient and provide further recommendations accordingly. 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 Patient was seen and examined.
--- NOTE | 2021-10-13 13:50 | P.DS ---
Providers Date of admission: 10/09/21 16:54 Expected date of discharge: 10/13/21 Attending physician: Lissett Wei DO Consults: 10/09/21 16:53 Consult Physician Routine Consulting Provider: [facility] Consult Reason/Comments: Pulmonary edema Do you want consulting provider notified?: Yes 10/09/21 17:43 Consult Physician Routine Consulting Provider: Terri Esquivel Consult Reason/Comments: COPD exacerbation Do you want consulting provider notified?: Yes 10/11/21 19:12 Consult Physician Stat Consulting Provider: Carmen Scott Consult Reason/Comments: metabolic alkalosis Do you want consulting provider notified?: Yes Primary care physician: [facility] Course: Discharge Diagnosis: Acute on chronic hypoxic respiratory failure secondary to combination of heart failure and COPD Acute on chronic diastolic heart failure Acute COPD exacerbation LUCIANA on CK D stage III Encephalopathy at night likely due to : resolved Hypokalemia Persistent atrial fibrillation Hypertension Hyperlipidemia CHLOE Lymphedema Gout Hospital Course: Patient is a 75-year-old male with a past medical history of chronic diastolic heart failure, chronic hypoxic respiratory failure with home O2 at 2 L, COPD, persistent atrial fibrillation, chronic kidney disease stage III, hypertension, hyperlipidemia, severe obstructive sleep apnea on BiPAP, chronic gout, lymphedema who presents to the ED with shortness of breath. Patient was admitted about one month ago for similar symptoms. He was treated for CHF and COPD exacerbation. Patient states that after he was discharged he was doing well for 3-4 days but then gradually started to get worse. Patient states that he sleeps in a chair. He states that he cannot lay down flat. Patient states that he has been compliant with his medications and also his diet. His at bedside confirmed that patient has been compliant with his diet. Patient also reports that he is coughing up large yellow brownish sputum. Patient denies any fever or chills. Patient also denies any chest pain or palpitation. In the ED patient was 77% on 6 L nasal cannula. He was placed on BiPAP. Patient was also given 1 dose of IV Lasix 80 mg. Patient states that his breathing is getting better since he came in. Patient's chest x-ray consistent with volume overload. Patient's creatinine 1.7, potassium 2.4, lactic acid 2.1. 10/10/21: Patient states that his breathing is improving. He is currently on 4 L nasal cannula and is satting well. Patient's creatinine is increasing and is now up to 1.99. Patient's IV steroid has been decreased by pulmonology. Cardiology ordered echocardiogram with Doppler studies 10/11/21: Patient states that he is feeling much better since admission. His creatinine is up to 2.2. Satting well on 4 L nasal cannula. 10/12/21: Patient had some confusion last night. This morning patient is AAO 3 and is answering questions appropriately. He states that his shortness of breath is much better. Patient's renal function is also improving. Cardiology switched him to oral diuretics. 10/13/21: Patient is back to his 2 L nasal cannula. Patient stated that his shortness of breath is back to his baseline. Patient's creatinine is improving. I discussed with nephrology who said patient can be discharged on torsemide and spironolactone. Per nephrology patient can follow up in the office in 3 days for monitoring his labs. Patient will also be discharged on prednisone for 3 more days to complete a 5 day course. Patient instructed to follow-up with cardiology as well. Patient's Lasix and metolazone were discontinued at discharge. Patient seen and examined at bedside.[] Vital signs reviewed and stable. General: [non toxic], [no distress], [appears at stated age] appears chronically debilitated Derm: [warm], [dry] Head: [atraumatic], [normocephalic], [symmetric] Eyes: [EOMI], [no lid lag], [anicteric sclera] Mouth: [no lip lesion], [mucus membranes moist] Cardiovascular: [S1S2 reg], [no murmur], [positive posterior tibial pulse bilateral], Lungs: Diminished breath sounds bilaterally Abdominal: [soft], [ nontender to palpation], [no guarding], [no appreciable organomegaly] morbidly obese Ext: [no gross muscle atrophy], [+1 Edema bilateral lower extremities], [no contractures] Neuro: [ CN II-XI grossly intact], [no focal neuro deficits] Psych: [Alert], [oriented], [appropriate affect] A total of [] minutes of time were spent preparing this complex discharge summary . Patient Condition at Discharge: Poor Plan - Discharge Summary Discharge Rx Participant: No New Discharge Prescriptions: New Spironolactone [Aldactone] 25 mg PO DAILY #30 tab Torsemide [Demadex] 40 mg PO DAILY #30 tab predniSONE 50 mg PO DAILY 3 Days #3 tab Continue Pravastatin Sodium [Pravachol] 20 mg PO HS allopurinoL [Zyloprim] 100 mg PO HS Potassium Chloride [Klor-Con 10 ER] 10 meq PO W/SUPPER Albuterol Sulfate [Albuterol Sulfate Hfa] 2 puff INHALATION RT-DAILY Famotidine [Pepcid] 20 mg PO DAILY #30 tab Budesonide-Formot 160-4.5 Mcg [Symbicort 160-4.5 Mcg Inhaler] 2 puff INHALATION RT-BID #1 puff Sildenafil [Revatio] 20 mg PO TID Apixaban [Eliquis] 5 mg PO BID Metoprolol Tartrate [Lopressor] 150 mg PO BID dilTIAZem HCL 90 mg PO BID Ipratropium-Albuterol Nebulize [Duoneb 0.5 mg-3 mg/3 ml Soln] 3 ml INHALATION RT-TID Gabapentin [Neurontin] 100 mg PO DAILY Discontinued Colchicine [Colcrys] 0.6 mg PO DAILY Furosemide [Lasix] 80 mg PO DAILY #145 tab Furosemide [Lasix] 40 mg PO HS metOLazone 2.5 mg PO MOWEFR Discharge Medication List Potassium Chloride [Klor-Con 10 ER] 10 meq PO W/SUPPER 12/10/15 [History] Pravastatin Sodium [Pravachol] 20 mg PO HS 12/10/15 [History] allopurinoL [Zyloprim] 100 mg PO HS 12/10/15 [History] Albuterol Sulfate [Albuterol Sulfate Hfa] 2 puff INHALATION RT-DAILY 11/18/19 [History] Budesonide-Formot 160-4.5 Mcg [Symbicort 160-4.5 Mcg Inhaler] 2 puff INHALATION RT-BID #1 puff 12/18/19 [Rx] Famotidine [Pepcid] 20 mg PO DAILY #30 tab 12/18/19 [Rx] Apixaban [Eliquis] 5 mg PO BID 10/01/20 [History] Metoprolol Tartrate [Lopressor] 150 mg PO BID 10/01/20 [History] Sildenafil [Revatio] 20 mg PO TID 10/01/20 [History] dilTIAZem HCL 90 mg PO BID 09/04/21 [History] Gabapentin [Neurontin] 100 mg PO DAILY 10/09/21 [History] Ipratropium-Albuterol Nebulize [Duoneb 0.5 mg-3 mg/3 ml Soln] 3 ml INHALATION RT-TID 10/09/21 [History] Spironolactone [Aldactone] 25 mg PO DAILY #30 tab 10/13/21 [Rx] Torsemide [Demadex] 40 mg PO DAILY #30 tab 10/13/21 [Rx] predniSONE 50 mg PO DAILY 3 Days #3 tab 10/13/21 [Rx] Follow up Appointment(s)/Referral(s): Gianluca Grissom MD [Primary Care Provider] - 1-2 days Martin Best MD [STAFF PHYSICIAN] - 3 Days [facility], [NON-STAFF] - Discharge Disposition: HOME SELF-CARE
== END 2021-10-13 15:43 | disposition home or self-care (01) | DRG 291 ==
LOC: EC 14:45 → 3SCARD 16:54
PROVIDERS: ADMIT Internal Medicine; ATTEND Internal Medicine
DX: I13.0 Hypertensive heart and chronic kidney disease with heart failure and stage 1 through stage 4 chronic kidney disease, or unspecified chronic kidney disease (principal); I50.33 Acute on chronic diastolic (congestive) heart failure; J96.21 Acute and chronic respiratory failure with hypoxia; N17.9 Acute kidney failure, unspecified; E87.1 Hypo-osmolality and hyponatremia; E87.4 Mixed disorder of acid-base balance; I48.19 Other persistent atrial fibrillation; J44.1 Chronic obstructive pulmonary disease with (acute) exacerbation; Z68.42 Body mass index [BMI] 45.0-49.9, adult; G93.49 Other encephalopathy; N18.30 Chronic kidney disease, stage 3 unspecified; E66.01 Morbid (severe) obesity due to excess calories; E78.5 Hyperlipidemia, unspecified; G47.33 Obstructive sleep apnea (adult) (pediatric); E87.6 Hypokalemia; T50.2X5A Adverse effect of carbonic-anhydrase inhibitors, benzothiadiazides and other diuretics, initial encounter; Y92.230 Patient room in hospital as the place of occurrence of the external cause; I89.0 Lymphedema, not elsewhere classified; K21.9 Gastro-esophageal reflux disease without esophagitis; M1A.9XX0 Chronic gout, unspecified, without tophus (tophi); Z96.653 Presence of artificial knee joint, bilateral; M13.0 Polyarthritis, unspecified; I87.8 Other specified disorders of veins; N40.0 Benign prostatic hyperplasia without lower urinary tract symptoms; I49.3 Ventricular premature depolarization; I07.1 Rheumatic tricuspid insufficiency; I27.20 Pulmonary hypertension, unspecified; Z86.14 Personal history of Methicillin resistant Staphylococcus aureus infection; Z87.891 Personal history of nicotine dependence; Z99.81 Dependence on supplemental oxygen; Z82.3 Family history of stroke; Z79.01 Long term (current) use of anticoagulants; Z79.51 Long term (current) use of inhaled steroids; Z79.899 Other long term (current) drug therapy
CPT/HCPCS: 36415; 36600; 71045; 80048; 80053; 82805; 83605; 83735; 83880; 84132; 84484; 85025; 85027; 85379; 85610; 85730; 87040; 93005; 93306; 94640; 94660; 94760; 96365; 96366; 96375; 99291

== ENCOUNTER → 2021-12-02 | Outpatient (CLI) | payer MEDICARE, BC ==
--- NOTE | 2021-12-02 10:18 | US ---
EXAMINATION TYPE: US kidneys/renal and bladder DATE OF EXAM: 12/02/2021 COMPARISON: NONE CLINICAL HISTORY: N17.9 ACUTE KIDNEY FAILURE, UNSPECIFIED. EXAM MEASUREMENTS: Right Kidney: 11.2 x 5.3 x 5.1 cm Left Kidney: 12.1 x 5.4 x 5.5 cm Post Void Residual Volume: 173.5 mL Right Kidney: No hydronephrosis or masses seen, upper pole cyst = 1.8 x 2.0 x 1.4 cm Left Kidney: No hydronephrosis or masses seen, 2 mid pole cysts medially 1) = 0.9 x 0.8 cm 2) = 1.6 x 1.4 x 1.3 cm Bladder: wnl Bilateral Jets seen: Yes Normal Post Void Residual: No There is no evidence for hydronephrosis at this point in time. Increased cortical echogenicity bilate rally. A few small simple appearing thin-walled cysts bilaterally are present. The urinary bladder i s adequately distended. Bilateral ureteral jets are seen. After voiding abnormal amount of increased urine, calculated volume approaches 200 cc. IMPRESSION: No hydronephrosis is seen bilaterally. Evidence of chronic medical renal disease noted.
== END | disposition home or self-care (01) ==
LOC: RADUSWWP 08:53
PROVIDERS: ATTEND Internal Medicine Nephrology
DX: N18.9 Chronic kidney disease, unspecified (principal)
CPT/HCPCS: 76770

== ENCOUNTER → 2023-02-13 | Outpatient (CLI) | payer MEDICARE, BC ==
--- NOTE | 2023-02-13 18:12 | CT ---
EXAMINATION TYPE: CT soft tissue neck wo con DATE OF EXAM: 02/13/2023 COMPARISON: None HISTORY: 77 year-old male K11.5, Left sialolithiasis. Sore throat, difficulty swallowing, swelling. TECHNIQUE: Contiguous axial scanning of the soft tissues of the neck without IV contrast. Coronal and sagittal reconstructions performed. CT DLP: 892.3 mGycm Automated exposure control for dose reduction was used. FINDINGS: Large caliber to the main right and left pulmonary arteries up to 3.4 cm compatible with underlying p ulmonary hypertension. There is mild to moderate centrilobular emphysema. The thyroid gland is satisfactory. The left submandibular gland is larger than the right but shows no significant surrounding inflammati on, intraglandular ductal dilatation, or stone along the expected submandibular duct. Small submandibular space lymph nodes are symmetric from [id number] and mildly enlarged measuring u p to 6 mm short axis. The parotid glands are satisfactory. Visualized intracranial structures and orbits and globes are clear. Mild mucosal thickening floor lef t maxillary sinus and anterior ethmoid air cells. Rightward nasal septal deviation. Mastoid air cells are clear. The nasopharynx is clear. There is mild lingual tonsillar hypertrophy. Retropharyngeal course of the bilateral internal carotid arteries narrowing the oropharynx. There is also asymmetric thickening partially effacing the left vallecular space, axial image 56. In addition, there is circumferential narrowing in the supraglottic region at the level of the false cor ds, axial image 53 that should be assessed with direct visualization. Glottic structures and tracheal column appear clear. No additional cervical lymphadenopathy seen. Prominent atherosclerotic calcifications in the bilateral carotid bifurcations. Moderate to advanced spondylotic change mid to lower cervical spine. Degenerative grade 1 anterolisth esis C4-C5. IMPRESSION: 1. THE LEFT SUBMANDIBULAR GLAND IS LARGER THAN THE RIGHT. HOWEVER, NO DISCRETE CALCULUS OR INTRAGLAND ULAR DUCTAL ENLARGEMENT IS IDENTIFIED. NO HILLARY SURROUNDING INFLAMMATION. IF PAIN LOCALIZES HERE, MIL D SIALADENITIS IS POSSIBLE. 2. ASYMMETRIC SOFT TISSUE THICKENING PARTIALLY EFFACING THE LEFT VALLECULAR SPACE. IN ADDITION, THERE IS CIRCUMFERENTIAL NARROWING OF THE SUPRAGLOTTIC REGION AT THE LEVEL OF THE FALSE CORDS. RECOMMEND D IRECT VISUALIZATION TO EXCLUDE MUCOSAL LESIONS HERE. 3. PROMINENT ATHEROSCLEROTIC CALCIFICATIONS AT BOTH CAROTID BIFURCATIONS. 4. INCIDENTAL: UNDERLYING PULMONARY ARTERIAL HYPERTENSION IS SUSPECTED.
== END | disposition home or self-care (01) ==
LOC: RADCTMAIN 14:13
PROVIDERS: ATTEND Internal Medicine Geriatric Medicine
DX: I65.23 Occlusion and stenosis of bilateral carotid arteries (principal); K11.5 Sialolithiasis; R13.10 Dysphagia, unspecified
CPT/HCPCS: 70490

== ENCOUNTER 2024-10-04 07:29 | Emergency (ER) | payer MEDICARE, BC ==
[2024-10-04 07:38] VITALS: TEMP 97.6
--- NOTE | 2024-10-04 08:02 | ED ---
General Adult HPI - General Chief complaint: Dizziness Stated complaint: AMS Time Seen by Provider: 10/04/24 07:30 Source: patient, RN notes reviewed, old records reviewed Mode of arrival: wheelchair Limitations: no limitations - History of Present Illness Initial comments: 78-year-old male history of atrial fibrillation, COPD, hypertension presenting f or evaluation of dizziness, room spinning sensation which occurred this morning while the patient was at rest. Patient states he was sitting in the chair when symptoms began and they lasted for a very short period of time. He states that movement did not worsen or improve his symptoms. He denied associated headache. Denied focal numbness or weakness. Denies chest pain. Symptoms completely re solved at the time my evaluation. - Related Data Home Medications Medication Instructions Recorded Confirmed Potassium Chloride [Klor-Con 10 ER] 10 meq PO W/SUPPER 12/10/15 10/09/21 Pravastatin Sodium [Pravachol] 20 mg PO HS 12/10/15 10/09/21 allopurinoL [Zyloprim] 100 mg PO HS 12/10/15 10/09/21 Albuterol Sulfate [Albuterol 2 puff INHALATION RT-DAILY 11/18/19 10/09/21 Sulfate Hfa] Apixaban [Eliquis] 5 mg PO BID 10/01/20 10/09/21 Metoprolol Tartrate [Lopressor] 150 mg PO BID 10/01/20 10/09/21 Sildenafil [Revatio] 20 mg PO TID 10/01/20 10/09/21 dilTIAZem HCL [Cardizem] 90 mg PO BID 09/04/21 10/09/21 Gabapentin [Neurontin] 100 mg PO DAILY 10/09/21 10/09/21 Ipratropium-Albuterol Nebulize 3 ml INHALATION RT-TID 10/09/21 10/09/21 [Duoneb 0.5 mg-3 mg/3 ml Soln] Previous Rx's Medication Instructions Recorded Budesonide-Formot 160-4.5 Mcg 2 puff INHALATION RT-BID #1 puff 12/18/19 [Symbicort 160-4.5 Mcg Inhaler] Famotidine [Pepcid] 20 mg PO DAILY #30 tab 12/18/19 Spironolactone [Aldactone] 25 mg PO DAILY #30 tab 10/13/21 Torsemide [Demadex] 40 mg PO DAILY #30 tab 10/13/21 predniSONE 50 mg PO DAILY 3 Days #3 tab 10/13/21 Amoxic-Pot Clav 875-125Mg 1 tab PO Q12HR 10 Days #20 tab 10/04/24 [Augmentin 875-125] Allergies Allergy/AdvReac Type Severity Reaction Status Date / Time No Known Allergies Allergy Verified 10/04/24 07:39 Review of Systems ROS Statement: Those systems with pertinent positive or pertinent negative responses have been documented in the HPI. ROS Other: All systems not noted in ROS Statement are negative. Past Medical History Past Medical History: Atrial Fibrillation, Heart Failure, COPD, GERD/Reflux, Hyperlipidemia, Hypertension, Osteoarthritis (OA), Pneumonia, Prostate Disorder, Renal Disease, Sleep Apnea/CPAP/BIPAP, Vascular Disorder Additional Past Medical History / Comment(s): Acute respiratory failure secondary to interstitial pneumonia/sepsis/CHF, chronic lower extremity ed armando/discoloration, venous insufficiency, CHLOE uses CPAP on occasion, chronic low back pain, generalized arthritis, gout bilateral feet, 2018 MRSA infection R buttock with sepsis. History of Any Multi-Drug Resistant Organisms: MRSA Date of last positivie culture/infection: 04/08/18 MDRO Source:: buttock wound Past Surgical History: Cholecystectomy, Heart Catheterization, Joint Replacement Additional Past Surgical History / Comment(s): 02/19/17 diagnostic cardiac cath, bilateral total knee arthroplasty, ventral hernia repair, colonoscopies, I&D R buttock. Past Anesthesia/Blood Transfusion Reactions: No Reported Reaction Past Psychological History: No Psychological Hx Reported Additional Psychological History / Comment(s): Pt resides with his spouse. He uses a cane/walker prn, He has a nebulizer. He drives. Smoking Status: Former smoker Past Alcohol Use History: None Reported Additional Past Alcohol Use History / Comment(s): Pt started smoking in 1962 and quit in 1977. He used to drink 3-4 beers per day but now only drinks on holidays. Past Drug Use History: None Reported - Past Family History Father Family Medical History: CVA/TIA Additional Family Medical History / Comment(s): Dad at age 89 from stroke. Mother Family Medical History: Dementia Additional Family Medical History / Comment(s): Mother is alive at age 90 with dementia. Sister(s) Additional Family Medical History / Comment(s): Patient has 2 sisters with no major medical problems. Patient does not have any brothers. Patient has 2 adult children with no major medical problems. General Exam Limitations: no limitations General appearance: alert, in no apparent distress Head exam: Present: atraumatic, normocephalic Eye exam: Present: normal appearance, PERRL ENT exam: Present: normal exam Neck exam: Present: normal inspection. Absent: tenderness, meningismus Respiratory exam: Present: decreased breath sounds. Absent: respiratory distress Cardiovascular Exam: Present: regular rate, irregular rhythm GI/Abdominal exam: Present: soft. Absent: distended, tenderness Extremities exam: Present: other (Chronic venous stasis) Neurological exam: Present: alert, oriented X3, CN II-XII intact, other (No nystagmus, no ataxia). Absent: motor sensory deficit Psychiatric exam: Present: normal affect, normal mood Skin exam: Present: warm, dry, intact Course Vital Signs 10/04/24 10/04/24 10/04/24 07:31 08:55 09:42 Temperature 97.6 F Pulse Rate 86 77 79 Respiratory 18 20 20 Rate Blood Pressure 144/77 104/62 107/71 O2 Sat by Pulse 92 L 92 L 92 L Oximetry Medical Decision Making - Medical Decision Making Was pt. sent in by a medical professional or institution ([facility], [facility], urgent care, hospital, or group home...) When possible be specific @ -No Did you speak to anyone other than the patient for history (EMS, parent, family, police, friend...)? What history was obtained from this source @ -No Did you review nursing and triage notes (agree or disagree)? Why? @ -I reviewed and agree with nursing and triage notes Were old charts reviewed (outside hosp., previous admission, EMS record, old EKG, old radiological studies, urgent care reports/EKG's, group home records)? Report findings @ -No old charts were reviewed Differential Dizziness: Benign paroxysmal positional Vertigo, Meniere's disease, otitis media, acoustic neuroma, vertebrobasilar insufficiency, cerebellar stroke, encephalitis, hypovolemic, arrhythmia, coronary artery syndrome, anemia, this is not meant to be an all-inclusive list EKG interpreted by me (3pts min.). @ -Atrial fibrillation right bundle branch block, left anterior fascicular block, rate of 82, QRS duration 144, QTc 454, similar appearing QRS morphology compared to previous EKG in 2021 X-rays interpreted by me (1pt min.). @Chest x-ray negative for pneumothorax, showing some increased basilar infiltrate possible developing pneumonia CT interpreted by me (1pt min.). @ -[CT brain negative for intracranial hemorrhage or mass effect U/S interpreted by me (1pt. min.). @ -None done What testing was considered but not performed or refused? (CT, X-rays, U/S, labs)? Why? @ -None What meds were considered but not given or refused? Why? @ -None Did you discuss the management of the patient with other professionals (pamela lopez i.e. , PA, [facility], lab, RT, psych nurse, psychologist social, middle school director, teacher, aerospace engineer officer armament, heel caser)? Give summary @ -No Was smoking cessation discussed for >3mins.? @ -No Was critical care preformed (if so, how long)? @ -No Were there social determinants of health that impacted care today? How? (Homelessness, low income, unemployed, alcoholism, drug addiction, transportation, low edu. Level, literacy, decrease access to med. care, detention, rehab)? @ -No Was there de-escalation of care discussed even if they declined (Discuss DNR or withdrawal of care, Hospice)? DNR status @ -No What co-morbidities impacted this encounter? (DM, HTN, Smoking, COPD, CAD, Cancer, CVA, ARF, Chemo, Hep., AIDS, mental health diagnosis, sleep apnea, morbid obesity)? @ -Atrial fibrillation. Was patient admitted / discharged? Hospital course, mention meds given and route, prescriptions, significant lab abnormalities, going to OR and other pertinent info. @ -78-year-old male with an episode of dizziness, room spinning sensation. This was resolved prior to arrival. Patient has multiple chronic medical conditions, workup is performed including EKG, CBC, CMP this is unremarkable. I did perform a head CT which was negative for intracranial hemorrhage or mass effect, chest x-ray shows question of developing infiltrate and the patient does report a cough which is persistent and he has history of COPD with oxygen dependence. He will be covered with antibiotics for the possibility of a pneumonia. He remains asymptomatic and is stable for discharge at this time with return parameters. Undiagnosed new problem with uncertain prognosis? @ -No Drug Therapy requiring intensive monitoring for toxicity (Heparin, Nitro, Insulin, Cardizem)? @ -No Were any procedures done? @ -No Diagnosis/symptom? @ -Dizziness, pneumonia Acute, or Chronic, or Acute on Chronic? @Acute Uncomplicated (without systemic symptoms) or Complicated (systemic symptoms)? @ -Default Side effects of treatment? @ -No Exacerbation, Progression, or Severe Exacerbation? @ -No Poses a threat to life or bodily function? How? (Chest pain, USA, PR, pneumonia, PE, COPD, DKA, ARF, appy, cholecystitis, CVA, Diverticulitis, Homicidal, Suicidal, threat to staff... and all critical care pts) @ -No - Lab Data Result diagrams: 10/04/24 08:02 10/04/24 08:02 Lab Results 10/04/24 10/04/24 10/04/24 Range/Units 08:02 08:02 08:02 WBC 7.5 (3.8-10.6) k/uL RBC 5.22 (4.30-5.90) m/uL Hgb 15.0 (13.0-17.5) gm/dL Hct 47.7 (39.0-53.0) % MCV 91.5 (80.0-100.0) fL MCH 28.8 (25.0-35.0) pg MCHC 31.5 (31.0-37.0) g/dL RDW 15.0 (11.5-15.5) % Plt Count 162 (150-450) k/uL MPV 7.3 Neutrophils % 79 % Lymphocytes % 11 % Monocytes % 6 % Eosinophils % 2 % Basophils % 0 % Neutrophils # 6.0 (1.3-7.7) k/uL Lymphocytes # 0.8 L (1.0-4.8) k/uL Monocytes # 0.4 (0-1.0) k/uL Eosinophils # 0.2 (0-0.7) k/uL Basophils # 0.0 (0-0.2) k/uL PT 11.3 (10.0-12.5) sec INR 1.0 (<1.2) APTT 28.6 (22.0-30.0) sec Sodium 134 L (137-145) mmol/L Potassium 4.1 (3.5-5.1) mmol/L Chloride 101 (98-107) mmol/L Carbon Dioxide 25 (22-30) mmol/L Anion Gap 8 mmol/L BUN 18 (9-20) mg/dL Creatinine 1.26 H (0.66-1.25) mg/dL Est GFR (CKD-EPI)AfAm 64 (>60 ml/min/1.73 sqM) Est GFR (CKD-EPI)NonAf 55 (>60 ml/min/1.73 sqM) Glucose 127 H (74-99) mg/dL Calcium 9.0 (8.4-10.2) mg/dL Total Bilirubin 1.0 (0.2-1.3) mg/dL AST 20 (17-59) U/L ALT 13 (4-49) U/L Alkaline Phosphatase 94 (38-126) U/L Troponin I (0.000-0.034) ng/mL Total Protein 6.6 (6.3-8.2) g/dL Albumin 3.8 (3.5-5.0) g/dL Influenza Type A (PCR) (Not Detectd) Influenza Type B (PCR) (Not Detectd) RSV (PCR) (Not Detectd) SARS-CoV-2 (PCR) (Not Detectd) 10/04/24 10/04/24 Range/Units 08:02 08:02 WBC (3.8-10.6) k/uL RBC (4.30-5.90) m/uL Hgb (13.0-17.5) gm/dL Hct (39.0-53.0) % MCV (80.0-100.0) fL MCH (25.0-35.0) pg MCHC (31.0-37.0) g/dL RDW (11.5-15.5) % Plt Count (150-450) k/uL MPV Neutrophils % % Lymphocytes % % Monocytes % % Eosinophils % % Basophils % % Neutrophils # (1.3-7.7) k/uL Lymphocytes # (1.0-4.8) k/uL Monocytes # (0-1.0) k/uL Eosinophils # (0-0.7) k/uL Basophils # (0-0.2) k/uL PT (10.0-12.5) sec INR (<1.2) APTT (22.0-30.0) sec Sodium (137-145) mmol/L Potassium (3.5-5.1) mmol/L Chloride (98-107) mmol/L Carbon Dioxide (22-30) mmol/L Anion Gap mmol/L BUN (9-20) mg/dL Creatinine (0.66-1.25) mg/dL Est GFR (CKD-EPI)AfAm (>60 ml/min/1.73 sqM) Est GFR (CKD-EPI)NonAf (>60 ml/min/1.73 sqM) Glucose (74-99) mg/dL Calcium (8.4-10.2) mg/dL Total Bilirubin (0.2-1.3) mg/dL AST (17-59) U/L ALT (4-49) U/L Alkaline Phosphatase (38-126) U/L Troponin I 0.014 (0.000-0.034) ng/mL Total Protein (6.3-8.2) g/dL Albumin (3.5-5.0) g/dL Influenza Type A (PCR) Not Detected (Not Detectd) Influenza Type B (PCR) Not Detected (Not Detectd) RSV (PCR) Not Detected (Not Detectd) SARS-CoV-2 (PCR) Not Detected (Not Detectd) Disposition Clinical Impression: Dizziness, PNA (pneumonia) Disposition: HOME SELF-CARE Condition: Fair Instructions (If sedation given, give patient instructions): Dizziness (ED) Prescriptions: Amoxic-Pot Clav 875-125Mg [Augmentin 875-125] 1 tab PO Q12HR 10 Days #20 tab Is patient prescribed a controlled substance at d/c from ED?: No Referrals: Gianluca Grissom MD [Primary Care Provider] - 1-2 days Time of Disposition: 09:32
[2024-10-04 08:21] LABS: Basophils % (A) 0 %; Eosinophils # (A) 0.2 k/uL (0-0.7); Eosinophils % (A) 2 %; HCT 47.7 % (39.0-53.0); Lymphocytes # (A) 0.8 k/uL (1.0-4.8); Lymphocytes % (A) 11 %; MCH 28.8 pg (25.0-35.0); MCHC 31.5 g/dL (31.0-37.0); MCV 91.5 fL (80.0-100.0); Mean Platelet Volume 7.3; Monocytes # (A) 0.4 k/uL (0-1.0); Monocytes % (A) 6 %; Neutrophils % (A) 79 %; Platelet Count 162 k/uL (150-450); RBC 5.22 m/uL (4.30-5.90); WBC 7.5 k/uL (3.8-10.6)
[2024-10-04 08:23] LABS: ALT 13 U/L (4-49); AST 20 U/L (17-59); African American GFR (CKD) 64 (>60 ml/min/1.73 sqM); Albumin 3.8 g/dL (3.5-5.0); Alkaline Phosphatase 94 U/L (38-126); Anion Gap 8 mmol/L; Blood Urea Nitrogen 18 mg/dL (9-20); Carbon Dioxide 25 mmol/L (22-30); Chloride 101 mmol/L (98-107); Glucose 127 mg/dL (74-99); Non-African American GFR(CKD) 55 (>60 ml/min/1.73 sqM); Potassium 4.1 mmol/L (3.5-5.1); Sodium 134 mmol/L (137-145); Total Protein 6.6 g/dL (6.3-8.2)
--- NOTE | 2024-10-04 08:34 | CT ---
EXAMINATION TYPE: CT brain wo con DATE OF EXAM: 10/04/2024 8:23 AM COMPARISON: None. CLINICAL INDICATION: Male, 78 years old with history of dizziness, Dizziness TECHNIQUE: Brain: Axial CT images of the brain were obtained with coronal and sagittal reformats created and rev iewed. Contrast used: None. Oral contrast used: None. CT DLP: 1288.7 mGycm, Automated exposure control for dose reduction was used. FINDINGS: Brain: Extra-axial spaces: No abnormal extra-axial fluid collections. Ventricular system: Dilatation in proportion to cerebral atrophy. Cerebral parenchyma: Cerebral atrophy. No acute intraparenchymal hemorrhage or mass effect. The avila -white junction is well differentiated. Scattered hypoattenuating areas are seen within the white mat ter. Cerebellum: Unremarkable. Mass effect: No evidence of midline shift. Intracranial vasculature: unremarkable Soft tissues: Normal. Calvarium/osseous structures: No depressed skull fracture. Paranasal sinuses and mastoid air cells: Mild scattered paranasal sinus disease. Visualized orbits: Orbital contents are intact. IMPRESSION: 1. No acute intracranial process. 2. Nonspecific white matter changes, likely secondary to chronic small vessel ischemic disease. [facility], , 10/04/2024 8:32 AM
[2024-10-04 08:39] LABS: Partial Thromboplastin Time 28.6 sec (22.0-30.0); Prothrombin Time 11.3 sec (10.0-12.5)
--- NOTE | 2024-10-04 08:39 | XR ---
EXAMINATION TYPE: XR chest 2V DATE OF EXAM: 10/04/2024 8:31 AM COMPARISON: 08/31/2024 CLINICAL INDICATION: Male, 78 years old with history of DIzzy/sob: Shortness of breath TECHNIQUE: XR chest 2V views of the chest are obtained. FINDINGS: Scattered senescent parenchymal changes noted. Hyperinflation compatible with COPD. Increased basilar markings could reflect developing infiltrate in a patient with COPD. Correlate clin ically. Heart size is stable. Mediastinal structures are stable and grossly unremarkable. No evidence for hilar prominence. Degenerative changes dorsal spine. IMPRESSION: 1. Increased basilar markings could reflect developing infiltrate in a patient with COPD. Correlate tiffanie cardoza. [facility], , 10/04/2024 8:37 AM
[2024-10-04 08:56] VITALS: RESP 20
[2024-10-04 09:42] VITALS: BP 107/71; PULSE 79
[2024-10-04 09:46] LABS: Influenza A Not Detected (Not Detectd); Influenza B Not Detected (Not Detectd); RSV Not Detected (Not Detectd)
== END 2024-10-04 10:12 | disposition home or self-care (01) ==
LOC: EC 07:29
DX: R42 Dizziness and giddiness (principal); J18.9 Pneumonia, unspecified organism; I48.91 Unspecified atrial fibrillation; Z87.891 Personal history of nicotine dependence
CPT/HCPCS: 36415; 70450; 71046; 80053; 84484; 85025; 85610; 85730; 87636; 93005; 99284

== ENCOUNTER → 2025-02-07 | Outpatient (CLI) | payer MEDICARE, BC ==
[2025-02-07 10:53] LABS: African American GFR (CKD) 83 (>60 ml/min/1.73 sqM); Blood Urea Nitrogen 26 mg/dL (9-20); Non-African American GFR(CKD) 72 (>60 ml/min/1.73 sqM)
--- NOTE | 2025-02-11 01:23 | CT ---
EXAMINATION TYPE: CT chest w con DATE OF EXAM: 02/07/2025 11:27 AM COMPARISON: None. CLINICAL INDICATION: Male, 79 years old with history of J18.9 PNEUMONIA, UNSPECIFIED ORGANISM, PNEUMO CAT TECHNIQUE: Axial images were obtained at 5 mm thick sections. Reconstructed images are reviewed on [employer] computer in the coronal plane. Contrast used:100 mL of Isovue 300 with IV Contrast, (none if empty) Oral contrast used: (none if empty) CT DLP: 645.9 mGycm, Automated exposure control for dose reduction was used. FINDINGS: Portion of the thyroid visualized is normal. No suspicious lung nodules or focal infiltrates are present. Emphysematous change is present No enlarged mediastinal or hilar adenopathy is evident. The ascending aorta diameter at the level o f the main pulmonary artery is 4.5 cm. The main pulmonary artery diameter at the bifurcation is 3. c m. Mild coronary artery calcifications present. Limited CT sections are obtained through the upper abdomen. Abdomen is essentially unremarkable. IMPRESSION: 1. No acute pulmonary process. 2. Emphysematous changes. 3. Ascending thoracic aortic aneurysm or 0.5 cm. [facility], Workstation: [facility], 02/11/2025 1:20 AM
== END | disposition home or self-care (01) ==
LOC: RADCTMAIN 10:06
PROVIDERS: ATTEND Nurse Practitioner Family
DX: J18.9 Pneumonia, unspecified organism (principal); I71.21 Aneurysm of the ascending aorta, without rupture; J43.9 Emphysema, unspecified
CPT/HCPCS: 82565; 84520; 71260; 36415; Q9967